=== PATIENT | male | born 1945 | race Caucasian/White ===

== ENCOUNTER 2019-10-21 13:52 | Emergency (ER) | payer MEDICARE, OTHER ==
[~2019-10-21] VITALS: Ht 195.6 cm; Wt 106.6 kg
--- OUTSIDE RECORDS SUMMARY | ~2019-10-21 | XMS | Encounter Summary ---
Demographics + + + | Address | [address] | | | [place] [address] | + + + | Home Phone | | + + + | Preferred Language | Unknown | + + + | Marital Status | | + + + | Bahai Affiliation | 1009 | + + + | Race | Unknown | + + + | Ethnic Group | Unknown | + + + Author + + + | Author | [facility] | | | and Jose Enriqueana | + + + | Organization | [facility] | | | and Jose Enriqueana | + + + | Address | Unknown | + + + | Phone | Unavailable | + + + Support + + + + + | Name | Relationship | Address | Phone | + + + + + | Sharlene Lagunas | ECON | [address] | | | [place] | | [address], [place] | | | | | [address] | | + + + + + | Rickey Bui | ECON | [address], [place] | | | | | [address] | | + + + + + Care Team Providers + +------+ + | Care Milk Pasteurizer Name | Role | Phone | + +------+ + | Tayo Robles DO | PCP | | + +------+ + Reason for Visit + + + | Reason | Comments | + + + | Device Check | No billed | + + + Encounter Details +--------+ + + + + | Date | Type | Department | Care Team | Description | +--------+ + + + + | 01/06/ | Procedure | [facility] | | Pacemaker - | | 2013 | visit | [facility] | | Medtronic - ADDRL1 | | | | [address] | | Adapta - Implanted | | | | [place] [address] [place], [place] | | 02/27/2012 DO NOT | | | | [address] | | RESOLVE (Primary | | | | [phone] | | Dx); Sinoatrial node | | | | | | dysfunction (HCC) | | | | | | DO NOT DELETE. | +--------+ + + + + Social History + +-------+ +--------+------+ | Tobacco Use | Types | Packs/Day | Years | Date | | | | | Used | | + +-------+ +--------+------+ | Never Smoker | | | | | + +-------+ +--------+------+ + +---+---+---+ | Smokeless Tobacco: | | | | | Never Used | | | | + +---+---+---+ + + | Comments: denies tobacco use | + + + + +---------+ + | Alcohol Use | Drinks/Week | oz/Week | Comments | + + +---------+ + | No | | | denies alcohol use | + + +---------+ + + + + | Sex Assigned at | Date Recorded | | | | + + + | Not on file | | + + + + + + + | Job Start Date | Occupation | Industry | + + + + | Not on file | Not on file | Not on file | + + + + + + + + | Travel History | Travel Start | Travel End | + + + + + + | No recent travel history available. | + + documented as of this encounter Plan of Treatment +--------+---------+ + + + | Date | Type | Specialty | Care Team | Description | +--------+---------+ + + + | 10/30/ | Office | Sleep Medicine | Rickey Zaragoza PA | | | 2020 | Visit | | [address] | | | | | | [place] | | | | | | [address] | | | | | | | | +--------+---------+ + + + documented as of this encounter Procedures + +--------+ + + + | Procedure Name | Priori | Date/Time | Associated Diagnosis | Comments | | | ty | | | | + +--------+ + + + | DEVICE INTERROGATION | Routin | 07/22/2015 | Pacemaker - | Results for this | | | e | 12:03 PM | Medtronic - ADDRL1 | procedure are in the | | | | PST | Adapta - Implanted | results section. | | | | | 02/27/2012 DO NOT | | | | | | RESOLVE Sinoatrial | | | | | | node dysfunction | | | | | | (HCC) DO NOT DELETE. | | + +--------+ + + + documented in this encounter Results Device Interrogation (07/22/2015 12:03 PM PST) + + + | Narrative | Performed At | + + + | Alex Jensen, | | | plant packer 07/22/2015 12:03 PATIENT NAME: Prabhjot Bui | | | : 1945: AGE: 68 y.o. Pacemaker Evaluation Report | | | January 06, 2014 Reason for evaluation: requestedIndication for | | | pacemaker: ICD-9-CM 1. Pacemaker - Medtronic - ADDRL1 Adapta - | | | Implanted 02/27/2012 DO NOT RESOLVE V45.01 Device Interrogation 2. | | | Sinoatrial node dysfunction ([facility]) DO NOT DELETE. 427.81 Device | | | Interrogation Patient was seated and device was interrogated. | | | Pacemaker parameters, battery status, percentages pacing and | | | significant arrhythmias were reviewed. Heart rate histograms were | | | assessed for adequate heart rate response and any alerts reviewed. | | | Appropriate lead impedance testing was performed. Pacing impedances | | | were reviewed for any significant changes. Sensing tests were | | | performed by decreasing LRL. Please see the attached [facility] report. | | | Dr. Joel Moise MD has supervised and interpreted this device | | | check. | | |Interrogation | | | | | | | | |Patient was seated and device was interrogated. Pacemaker | | |parameters, battery status, percentages pacing and significant | | |arrhythmias were reviewed. Heart rate histograms were assessed | | |for adequate heart rate response and any alerts reviewed. | | |Appropriate lead impedance testing was performed. Pacing | | |impedances were reviewed for any significant changes. Sensing | | |tests were performed by decreasing LRL. | | | | | |Please see the attached [facility] report. | | | | | |Dr. Joel Moise MD has supervised and interpreted this | | |device check. | | | | | | | | | | | + + + documented in this encounter Visit Diagnoses + + | Diagnosis | + + | Pacemaker - Medtronic - ADDRL1 Adapta - Implanted 02/27/2012 DO NOT RESOLVE - Primary | | Cardiac pacemaker in situ | + + | Sinoatrial node dysfunction (HCC) DO NOT DELETE. Sinoatrial node dysfunction | + + documented in this encounter"
--- OUTSIDE RECORDS SUMMARY | ~2019-10-21 | XMS | Encounter Summary ---
Demographics + + + | Address | [address] | | | [place] [address] | + + + | Home Phone | | + + + | Preferred Language | Unknown | + + + | Marital Status | | + + + | Anglican Affiliation | 1009 | + + + | Race | Unknown | + + + | Ethnic Group | Unknown | + + + Author + + + | Author | [facility] | | | and Jose Enriqueana | + + + | Organization | [facility] | | | and Jose Enriqueana | + + + | Address | Unknown | + + + | Phone | Unavailable | + + + Support + + + + + | Name | Relationship | Address | Phone | + + + + + | Sharlene Lagunas | ECON | [address] | | | [place] | | [address] [place] | | | | | [address] | | + + + + + | Rickey Bui | ECON | [address] [place], [place] | | | | | [address] | | + + + + + Care Team Providers + +------+ + | Care Council Member Name | Role | Phone | + +------+ + | Tayo Robles DO | PCP | | + +------+ + Reason for Visit + + + | Reason | Comments | + + + | Device Check | Due today. | | (Remote) | | + + + Encounter Details +--------+ + + + + | Date | Type | Department | Care Team | Description | +--------+ + + + + | 07/06/ | Telephone | [facility] | Avinash Billingsley, | Device Check | | 2017 | | [facility] | Senior Premium Auditor | (Remote) (Due | | | | HI[address] | | today.) | | | | [place] [address] [place] | | | | | | [address] | | | | | | [phone] | | | +--------+ + + + + Social [...] + + +---------+ + | No | 0 Standard drinks | 0.0 | denies alcohol use | | | or equivalent | | | + + +---------+ + + + [...] | Visit | | [address] | | | | | | [place] | | | | | | [phone] | | | | | | | | +--------+---------+ + + + documented as of this encounter Visit Diagnoses Not on filedocumented in this encounter"
--- OUTSIDE RECORDS SUMMARY | ~2019-10-21 | XMS | Encounter Summary ---
Demographics + + + | Address | [address] | | | [place] [address] | + + + | Home Phone | | + + + | Preferred Language | Unknown | + + + | Marital Status | | + + + | Restorationism Affiliation | 1009 | + + + | Race | Unknown | + + + | Ethnic Group | Unknown | + + + Author + + + | Author | [facility] | | | and Jose Enriqueana | + + + | Organization | [facility] | | | and Jose Enriqueana | + + + | Address | Unknown | + + + | Phone | Unavailable | + + + Support + + + + + | Name | Relationship | Address | Phone | + + + + + | Sharlene Lagunas | ECON | [address] | | | [place] | | [address], [place] | | | | | [address] | | + + + + + | Rickey Bui | ECON | [address] [place], [place] | | | | | [address] | | + + + + + Care Team Providers + +------+ + | Care Courtesy Driver Name | Role | Phone | + +------+ + | Tayo Robles DO | PCP | | + +------+ + Reason for Visit + + + | Reason | Comments | + + + | Device Check | Billed | | (Remote) | | + + + Encounter Details +--------+ + + + + | Date | Type | Department | Care Team | Description | +--------+ + + + + | 08/19/ | Implant | [facility] | Beata Dorado, | Sinoatrial node | | 2016 | Monitor | [facility] | RN | dysfunction (HCC) | | | | HI[address] | | (Primary Dx); | | | | [address] | | Cardiac pacemaker in | | | | [address] | | situ | | | | [phone] | | | +--------+ + + + [...] | | | | | | [place] | | | | | | [address] | | | | | | | | +--------+---------+ + + + documented as of this encounter Procedures + +--------+ + + + | Procedure Name | Priori | Date/Time | Associated Diagnosis | Comments | | | ty | | | | + +--------+ + + + | DEVICE INTERROGATION | Routin | 08/20/2015 | Sinoatrial node | Results for this | | | e | 9:12 PM | dysfunction (HCC) | procedure are in the | | | | PDT | Cardiac pacemaker in | results section. | | | | | situ | | + +--------+ + + + documented in this encounter Results Device Interrogation (08/20/2015 9:12 PM PDT) + + + | Narrative | Performed At | + + + | [facility] | | ANASTASIYA Dorado 08/20/2015 21:12 PATIENT NAME: Prabhjot Lee | | | Breejuvenal : 1945: AGE: 69 y.o. Remote | | | Pacemaker Evaluation Report July 09, 2015 Reason for evaluation: | | | RoutineIndication for pacemaker: ICD-10-CM ICD-9-CM 1. Sinoatrial | | | node dysfunction (HCC) I49.5 427.81 Device Interrogation 2. Cardiac | | | pacemaker in situ Z95.0 V45.01 Device Interrogation Remotely | | | captured device data was reviewed for pacemaker parameters, battery | | | status, percentage of pacing and significant arrhythmias. Heart rate | | | histograms were evaluated for adequate heart rate response and any | | | alerts reviewed. Pacing lead impedances were reviewed for any | | | significant changes. Final pacing outputs and programming parameters | | | were reviewed. Settings Mode: VVIR, 70-130(130)Ventricular Output: | | | 2.0V @ 0.4ms Data Presenting rhythm is atrial flutter with HEEL SEAT FLAP STAPLER ~88 bpm. | | | HEEL SEAT FLAP STAPLER 70.2%. Mostly HEEL SEAT FLAP STAPLER when in AT/AF. Heart rate histogram appears | | | appropriate. Battery status: satisfactory. Voltage: 2.79 V. Estimated | | | remaining longevity: 11 years. Lead impedance appears within normal | | | limits.Events noted since 06/03/15: 4 VHR, longest 1:44 minutes. | | | Atrial EGMs only available and show VS falling on every other | | | flutter wave, possibly RVR.Device function appears appropriate.Remote | | | follow-up in 3 months.Supervising and interpreting physician for this | | | remote,Dr. Joel Moise MD | | |pacing outputs and programming parameters were reviewed. | | | | | |Settings | | | | | |Mode: VVIR, 70-130(130) | | |Ventricular Output: 2.0V @ 0.4ms | | | | | |Data | | | | | |Presenting rhythm is atrial flutter with HEEL SEAT FLAP STAPLER ~88 bpm. HEEL SEAT FLAP STAPLER 70.2%. | | |Mostly HEEL SEAT FLAP STAPLER when in AT/AF. Heart rate histogram appears | | |appropriate. | | |Battery status: satisfactory. Voltage: 2.79 V. Estimated | | |remaining longevity: 11 years. Lead impedance appears within | | |normal limits. | | |Events noted since 06/03/15: | | | 4 VHR, longest 1:44 minutes. Atrial EGMs only available and | | |show VS falling on every other flutter wave, possibly RVR. | | |Device function appears appropriate. | | |Remote follow-up in 3 months. | | |Supervising and interpreting physician for this remote, | | |Dr. Joel Moise MD | | | | | | | | | | | + + + + +---------+ + + | Performing | Address | City/State/Zipcode | Phone Number | | Organization | | | | + +---------+ + + | [facility] | | | | + +---------+ + + documented in this encounter Visit Diagnoses + + | Diagnosis | + + | Sinoatrial node dysfunction (HCC) - Primary Sinoatrial node dysfunction | + + | Cardiac pacemaker in situ | + + documented in this encounter"
--- OUTSIDE RECORDS SUMMARY | ~2019-10-21 | XMS | Encounter Summary ---
Demographics + + + | Address | [address] | | | [place] [address] | + + + | Home Phone | | + + + | Preferred Language | Unknown | + + + | Marital Status | | + + + | Anabaptist Affiliation | 1009 | + + + | Race | Unknown | + + + | Ethnic Group | Unknown | + + + Author + + + | Author | [facility] | | | and Jose Enriqueana | + + + | Organization | [facility] | | | and Jose Enriqueana | + + + | Address | Unknown | + + + | Phone | Unavailable | + + + Support + + + + + | Name | Relationship | Address | Phone | + + + + + | Sharlene Lagunas | ECON | [address] | | | [place] | | [address], [place] | | | | | [address] | | + + + + + | Rickey Bui | ECON | [address], [place] | | | | | [address] | | + + + + + Care Team Providers + +------+ + | Care Bacteriology Teacher Name | Role | Phone | + +------+ + | Luna Larson | PCP | | | PA | | | + +------+ + Reason for [...] 08/19/ | Implant | [facility] | Ila Vasquez, | Sinoatrial node | | 2019 | Monitor | [facility] | RN | dysfunction (HCC) | | | | HI[address] | | (Primary Dx); | | | | [address] [place], [place] | | Cardiac pacemaker in | | | | [address] | | situ | | | | [phone] | | | +--------+ + + + [...] [place] | | | | | | [place] | | | | | | [address] | | | | | | | | +--------+---------+ + + + documented as of this encounter Procedures + +--------+ + + + | Procedure Name | Priori | Date/Time | Associated Diagnosis | Comments | | | ty | | | | + +--------+ + + + | DEVICE | Routin | 08/19/2018 | Sinoatrial node | Results for this | | INTERROGATION- | e | 11:59 PM | dysfunction (HCC) | procedure are in the | | REMOTE | | PDT | Cardiac pacemaker in | results section. | | | | | situ | | + +--------+ + + + documented in this encounter Results Device Interrogation - Remote (08/19/2018 11:59 PM PDT) + + + | Narrative | Performed At | + + + | [facility] | [facility] | | ANASTASIYA Vasquez 08/19/2018 13:35 PATIENT NAME: Prabhjot Lee | | | [place] : 1945: AGE: 72 y.o. Remote | | | Pacemaker Evaluation Report July 05, 2018 Reason for evaluation: | | | RoutineIndication for pacemaker: ICD-10-CM ICD-9-CM 1. Sinoatrial | | | node dysfunction (HCC) I49.5 427.81 Device Interrogation - Remote 2. | | | Cardiac pacemaker in situ Z95.0 V45.01 Device Interrogation - Remote | | | Remotely captured device data was reviewed for pacemaker parameters, | | | battery status, percentage of pacing and significant arrhythmias. | | | Heart rate histograms were evaluated for adequate heart rate response | | | and any alerts reviewed. Pacing lead impedances were reviewed for any | | | significant changes. Final pacing outputs and programming parameters | | | were reviewed. Settings Mode: VVIR, 70 (130)Ventricular Output: 2.0V @ | | | 0.4ms (adaptive) Data Presenting rhythm is atrial | | | fibrillation/flutter with irregular WAREHOUSE GUARD/VS, ~96 bpm. WAREHOUSE GUARD 54.8%. | | | Heart rate histogram appears somewhat broad with ~25% >110 bpm | | | (mostly sensed). Battery status: satisfactory. Voltage: 2.79 V. | | | Estimated remaining longevity: 7.5 years. Lead impedance appears | | | within normal limits.Events noted since 08/11/17: 72 VHR (70 new since | | | 04/05/18), longest 1:18 minutes, logged events are 4 seconds to 1:18 | | | minutes, 180-189 bpm, last on 06/07/18. EGMs are atrial only showing | | | atrial flutter with intermittent fast VS, possibly periods of 1:1 | | | conduction although no ventricular EGM is available for review.Device | | | function appears appropriate. The patient has broad heart rate | | | histograms and has 70 new high rate episodes, the most recent on | | | 06/07/18. A message was left for him on 05/23/18 to increase his beta | | | niko dose from 50 mg bid to 75 mg bid and he has had no new VHR | | | since 06/07/18.Remote follow-up in 3 months. Supervising and | | | interpreting physician for this remote,Joel Moise MD | | | | | |Data | | | | | |Presenting rhythm is atrial fibrillation/flutter with irregular | | |WAREHOUSE GUARD/VS, ~96 bpm. WAREHOUSE GUARD 54.8%. Heart rate histogram appears somewhat | | |broad with ~25% >110 bpm (mostly sensed). | | |Battery status: satisfactory. Voltage: 2.79 V. Estimated | | |remaining longevity: 7.5 years. Lead impedance appears within | | |normal limits. | | |Events noted since 08/11/17: | | | 72 VHR (70 new since 04/05/18), longest 1:18 minutes, logged | | |events are 4 seconds to 1:18 minutes, 180-189 bpm, last on | | |06/07/18. EGMs are atrial only showing atrial flutter with | | |intermittent fast VS, possibly periods of 1:1 conduction although | | |no ventricular EGM is available for review. | | |Device function appears appropriate. The patient has broad heart | | |rate histograms and has 70 new high rate episodes, the most | | |recent on 06/07/18. A message was left for him on 05/23/18 to | | |increase his beta niko dose from 50 mg bid to 75 mg bid and he | | |has had no new VHR since 06/07/18. | | |Remote follow-up in 3 months. | | | | | |Supervising and interpreting physician for this remote, | | |Joel Moise MD | | + + + + +---------+ [...]
--- OUTSIDE RECORDS SUMMARY | ~2019-10-21 | XMS | Encounter Summary ---
Demographics + + + | Address | [address] | | | [place] [address] | + + + | Home Phone | | + + + | Preferred Language | Unknown | + + + | Marital Status | | + + + | Roman Catholic Affiliation | 1009 | + + + | Race | Unknown | + + + | Ethnic Group | Unknown | + + + Author + + + | Author | [facility] | | | and Jose Enriqueana | + + + | Organization | [facility] | | | and Jose Enriqueana | + + + | Address | Unknown | + + + | Phone | Unavailable | + + + Support + + + + + | Name | Relationship | Address | Phone | + + + + + | Sharlene Lagunas | ECON | [address] | | | [place] | | [address], [place] | | | | | [address] | | + + + + + | Rickey Bui | ECON | [address] [place], [place] | | | | | [address] | | + + + + + Care Team Providers + +------+ + | Care Buckle Gluer Name | Role | Phone | + +------+ + | Tayo Robles DO | PCP | | + +------+ + Reason for Referral Diagnostic/Screening (Routine) +--------+--------+ + + + + | Status | Reason | Specialty | Diagnoses / | Referred By | Referred To | | | | | Procedures | Contact | Contact | +--------+--------+ + + + + | Closed | | Radiology | Diagnoses | [place], | [facility] | | | | | Edema, | Mary M, | [address] | | | | | unspecified | PA-C [address] | [place], | | | | | type | AVE | [place] | | | | | Fatigue, | [address] | [address] | | | | | unspecified | [place] | Phone: | | | | | type S/P | [phone] | [phone] | | | | | AVR | Phone: | Fax: | | | | | Procedures | [phone] | [phone] | | | | | ECHO | Fax: | | | | | | Complete | [phone] | | +--------+--------+ + + + + Reason for Visit + + + | Reason | Comments | + + + | Follow-up | | + + + | Atrial Fibrillation | | + + + | Device Check | | | (In-office) | | + + + | Edema | | + + + Encounter Details +--------+---------+ + + + | Date | Type | Department | Care Team | Description | +--------+---------+ + + + | 08/11/ | Office | JENNIE SIDDIQUI | Mary Wilkes, | Edema, unspecified | | 2018 | Visit | [facility] | PA-C [address] | type (Primary Dx); | | | | HI[address] | [address] | Atrial fibrillation, | | | | [place] [address] [place] | [place] [address] | unspecified type | | | | [address] | [phone] | ([facility]); Fatigue, | | | | [phone] | | unspecified type; | | | | | | S/P AVR; Pacemaker - | | | | | | Medtronic - [id number] | | | | | | Adapta - Implanted | | | | | | 02/27/2012 DO NOT | | | | | | RESOLVE; Sinoatrial | | | | | | node dysfunction | | | | | | ([facility]) DO NOT | | | | | | DELETE.; | | | | | | Hypertension; 2. | | | | | | Bicuspid aortic | | | | | | valve with dilated | | | | | | aortic root - mild | | | | | | aortic insufficiency | | | | | | - Echocardiogram | | | | | | 09/13/04 reveals peak | | | | | | gradient of 11, | | | | | | calculated valve | | | | | | area of 2.3 cm2, and | | | | | | mildly dilated | | | | | | ascending aort | +--------+---------+ + + + Social History + +-------+ [...] + + documented as of this encounter Last Filed Vital Signs + + + + + | Vital Sign | Reading | Time Taken | Comments | + + + + + | Blood Pressure | 114/74 | 08/11/2017 3:31 PM | Lt | | | | PDT | | + + + + + | Pulse | 78 | 08/11/2017 3:31 PM | | | | | PDT | | + + + + + | Temperature | - | - | | + + + + + | Respiratory Rate | - | - | | + + + + + | Oxygen Saturation | - | - | | + + + + + | Inhaled Oxygen | - | - | | | Concentration | | | | + + + + + | Weight | 108.9 kg (240 lb) | 08/11/2017 3:31 PM | | | | | PDT | | + + + + + | Height | 193 cm (6' 4") | 08/11/2017 3:31 PM | | | | | PDT | | + + + + + | Body Mass Index | 29.21 | 08/11/2017 3:31 PM | | | | | PDT | | + + + + + documented in this encounter Patient Instructions Patient Instructions Aspen Sanford LPN - 08/11/2017 3:40 PM PDTTake Furosemide 20 mg on Monday and with Potassium 20 mEq on Monday and Arrange echocardiogram in [place] Follow up with Dr. Kunz in 6 months.Electronically signed by Aspen Sanford LPN at 07/21 4:57 PM PDT documented in this encounter Progress Notes Mary Wilkes PA-C - 08/11/2017 3:40 PM PDT PATIENT NAME: Prabhjot Bui : 1945: AGE: 71 y.o. PRIMARY CARE: Tayo Robles DO DATE OF SERVICE: 08/11/2017 CHIEF COMPLAINT: Follow-up AVR Paroxysmal atrial fibrillation Hypertension Edema Date of Service: 08/11/2017 Patient's history and clinical findings were reviewed with Dr. Kunz who is in agreement with this treatment plan and saw the patient during the office visit. Outline of Cardiac Problems that were considered on 08/11/17 to make treatment decisions 1. Sinoatrial node dysfunction 1. Medtronic pacemaker in place, implanted 02/27/12 2. Paroxysmal atrial fibrillation 1. Onset 1993 2. Cardioversions 06/19/00, 11/24/00, 07/25/01, 10/18/01, 12/26/02, 12/02/04, 03/07/13 3. Previous ablation 2002, 2008, 2013 3. Bicuspid aortic valve 1. S/P AVR 27 mm freestyle porcine aortic root and 24 mm Hemashield woven Dacron Graft 2. Echo 01/20/16 LVEF 55%, moderate to severe atrial enlargement, mild MR, moderate TR 29-34 mmHg 4. Hypertension CURRENT ASSESSMENT Pacemaker - Medtronic - [id number] Adapta - Implanted 02/27/2012 DO NOT RESOLVE Device was interrogated today Battery life is 9 years Ventricular paced 55.9% 7 VHR with the longest lasting 2 minutes and 18 seconds with RVR, on 03/10/17 No further events since 03/12/17 Heart rate distribution was adequate and no changes were made Sinoatrial node dysfunction DO NOT DELETE. V pacing 55.9 % Atrial fibrillation/atrial flutter Overall rate controlled On warfarin for anticoagulation therapy Hypertension Well-controlled with current medical therapy 2. Bicuspid aortic valve with dilated aortic root - mild aortic insufficiency - Echocardio gram 09/13/04 reveals peak gradient of 11, calculated valve area of 2.3 cm2, and mildly dilat ed ascending aort Valve replacement functioning well on echo 12/2015 Patient has been having more problems with lower extremity edema, losing his stamina quickl y. I reviewed his history and clinical signs with Dr. Kunz and the plan is to increase his Lasix to Monday and Add potassium 20 mEq on Monday and Repeat echocardiogram During this office visit, I reviewed the last progress note, most recent labs and last diag nostic studies. PLAN: 1. Echocardiogram 2. Take Lasix 20 mg on Monday and 3. Add potassium 20 once on Monday and 4. Follow-up with Dr. Kunz in 6 months Of course patient is to present to the ER if symptoms worsen or change in any way. HISTORY OF PRESENT ILLNESS 71 y.o. year old male with history as dictated above. He was last seen by Dr. Kunz on 09/05/16. He is having complaints of increasing exertional fatigue, decreased energy levels and lower extremity edema. He denies any exertional or resting chest discomfort, shortness of breath, orthopnea or paroxysmal nocturnal dyspnea. He is able to do his normal activitie s without limitation. FOLLOWUP Dr. Kunz MEDICATION ADJUSTMENTS New Prescriptions POTASSIUM CHLORIDE (K-DUR) 20 MEQ ER TABLET 1 tablet on Monday and with Furose mide Medications Discontinued During This Encounter Medication Reason thyroid (ARMOUR THYROID) 60 MG tablet Patient Not Taking ATTENDANCE SECRETARY THYROID 30 MG tablet Patient Not Taking Apoaequorin (PREVAGEN PO) Patient Not Taking magnesium sulfate 500 mg/mL injection Patient Not Taking non-formulary medication Patient Not Taking non-formulary medication Patient Not Taking furosemide (LASIX) 20 mg tablet Reorder CURRENT MEDICATIONS Outpatient Encounter Prescriptions as of 08/11/2017 Medication Sig Dispense Refill anastrozole (ARIMIDEX) 1 mg tablet Take 0.6 tablets by mouth Once a week. MONDAYS [DISCONTINUED] Apoaequorin (PREVAGEN PO) Take by mouth Daily. ARMOUR THYROID 15 MG tablet Take 1 tablet by mouth every morning. 75 mg in the AM and 3 0 mg in the PM 3 Cholecalciferol (CVS VITAMIN D) 2000 UNITS CAPS Take 5,000 Units by mouth Daily. cloNIDine (CATAPRES) 0.2 MG tablet TAKE 1 TABLET TWICE A DAY *ACTAVIS* 180 tablet 0 Coenzyme Q10 (CO Q-10) 100 MG CAPS Take 1 capsule by mouth Daily. Also has O-Svuynp-Smm teine 250 mg & Pyrroloquinoline PQQ 10 mg DHEA 25 MG CAPS Take 25 mg by mouth Daily. digoxin (LANOXIN) 250 mcg tablet TAKE 1 TABLET DAILY 90 tablet 0 fish oil 1,000 mg capsule Take 1,000 mg by mouth Daily. [DISCONTINUED] furosemide (LASIX) 20 mg tablet Take 1 tablet by mouth Daily. 30 tablet 11 furosemide (LASIX) 20 mg tablet 1 tablet daily on Monday and with Potassium Garlic 1000 MG CAPS Take 1,000 mg by mouth Daily. L-Methylfolate 15 MG TABS Take 15 mg by mouth Daily. MAGNESIUM PO Take 133 mg by mouth. [DISCONTINUED] magnesium sulfate 500 mg/mL injection Twice a week. Monday AND MONDAY As directed metoprolol succinate (TOPROL-XL) 50 mg 24 hr tablet TAKE 1 AND 1/2 TABLETS DAILY 90 tablet 3 non-formulary medication Nerium po [DISCONTINUED] non-formulary medication prevergan [DISCONTINUED] non-formulary medication prevergen [DISCONTINUED] ATTENDANCE SECRETARY THYROID 30 MG tablet Take 1 tablet by mouth nightly. 4 potassium chloride (K-DUR) 20 mEq ER tablet 1 tablet on Monday and with Furose mide 30 tablet 2 Potassium Gluconate 595 MG CAPS Take 1 capsule by mouth Daily. PROAIR HFA 108 (90 Base) MCG/ACT inhaler Inhale 2 puffs into the lungs as needed. 1 SYNTHROID 50 MCG tablet Take 1 tablet by mouth Daily. tamsulosin (FLOMAX) 0.4 mg CAPS Take 0.4 mg by mouth daily (after breakfast). TAURINE PO Take 1,500 mg by mouth 2 times daily. Six caps daily; testosterone cypionate (DEPO-TESTOSTERONE) 100 mg/mL injection Inject 100 mg into the m uscle every 14 days. [DISCONTINUED] thyroid (ARMOUR THYROID) 60 MG tablet Take 60 mg by mouth. With 15 mg ta b UNABLE TO FIND Daily. Med Name: Spirolina warfarin (COUMADIN) 5 mg tablet Take by mouth See Admin Instructions. As directed by Dylan TA No facility-administered encounter medications on file as of 08/11/2017. Please note [facility] has a flaw in which medication corrections are listed as if they were disc ontinued at the time of the visit. I did not "discontinue" any the above medications unless noted in my assessment and plan; rather the patient was either not on these medications upon arrival today or I made refills or dose adjustments as otherwise noted. ALLERGIES Allergies Allergen Reactions Flecainide Other (See Comments) AFTER 1ST ABLATION, HAD LEG SWELLING, INCREASED HEART RATE Amoxicillin Rash MEDICAL, SURGICAL, AND PERSONAL HISTORY Past Medical History: Past Medical History: Diagnosis Date Aortic insufficiency and aortic stenosis Aortic root dilation (HCC) Dilated aortic root - stable on echocardiogram 06/24/05 - 4.5 cm. - 4.8 cm previously: Aorti c root 4.5 x 4.7 cm echocardiogram 10/17/06. Asthma RARELY USES ALBUTEROL INHALER Atrial fibrillation (HCC) DR AUGUSTO KUNZ Colon polyp 1989 Diverticular disease Elevated bilirubin History of biopsy Lump on breast was biopsied in 04/2009 and was benign. History of echocardiogram Bicuspid aortic valve - peak gradient 11, mean gradient 6 - echocardiogram 10/17/06. Hypertension Labile hypertension. Blood pressure 194/120 approximately 06/10/05. Leg swelling Intermittent right leg swelling . wears support hose Pacemaker MEDTRONIC Paroxysmal atrial fibrillation (HCC) Last cardioversion 12/26/02. Pulmonary vein isolation carried out at the [facility] on 09/01/01. Phlebitis Phlebitis - right leg with superficial enlargement of superficial veins over the right thi gh, improved at office visit 01/17/06. Sleep apnea CPAP- WILL BRING SOB (shortness of breath) D/T A FIB W/ACTIVITY Thyroid disease HYPOTHYROID TIA (transient ischemic attack) LAST 2009 OR 2010 HAS HAD "A FEW TIA"- Varicose veins Past Surgical History: Past Surgical History: Procedure Laterality Date ABLATION OF DYSRHYTHMIC FOCUS 04/30/2014 A-FIB ABLATION W/IVETTE AND SHAYNA W/DR SARAVIA; Laterality: N/A; Surgeon: Rickey Galvan MD ; Location: [facility] ELECTROPHYSIOLOGY AORTIC ROOT REPLACEMENT AND REIMPLANTATION OF CORONARY ARTERIES 05/28/08 Dr. Kelsey ASCENDING AORTA REPLACEMENT 05/28/08 Dr. Kelsey ATRIAL ABLATION SURGERY 2002 ,2008 CARDIAC PACEMAKER PLACEMENT 02/27/12 MEDTRONIC CARDIOVERSION 06/19/00,11/24/00,07/25/01,10/18/01,12/26/02,12/02/04 CARDIOVERSION 03/07/13 CHOLECYSTECTOMY HIP JOINT REPLACEMENT Left 05/17/15 INGUINAL HERNIA REPAIR X2 SHOULDER SURGERY 05/28/13 right WRIST SURGERY left Family History: His family history includes Atrial Fibrillation in his mother; Colon cance r in his brother; Hypertension in his mother and sister; Stroke (age of onset: 62) in his si ster. Social History: He reports that he has never smoked. He has never used smokeless tobacco. He reports that he does not drink alcohol or use drugs. ROS 12 point ROS was completed and is negative except for: Fatigue, hearing loss, ringing in th e ears, ankle swelling, shortness of breath, and dizziness PHYSICAL EXAM BP 114/74 Comment: Lt | Pulse 78 | Ht 1.93 m (6' 4") | Wt 108.9 kg (240 lb) | BMI 29.21 kg/m Body mass index is 29.21 kg/m. CONSTITUTIONAL: Pleasant appearing gentleman in no acute distress. He is accompanied by hi s today. HEENT: conjunctiva and lids are normal in appearance EOMs are intact. NECK: Normal range of motion. Neck supple. JVP is normal. BLOOD PRESSURES: equal in both upper extremities. CAROTIDS: Carotid upstrokes are normal and without bruits. PULMONARY/CHEST:Respiratory effort normal and breath sounds clear to auscultation. CARDIAC: PMI is nondisplaced. Cardiac exam reveals regular rate and rhythm with normal S1- S2. 2/6 systolic apical murmur with no rubs, or gallops. ABDOMINAL: Soft. Non tender, non distended. Bowel sounds are normal. no bruits auscultated . Abdominal aorta is not palpably enlarged. LOWER EXTREMETIES: Intact distal pulses and 2+ bilaterally, 2+ lower extremity edema bilate rally. No venous insufficiency. MUSCULOSKELETAL: Back is negative for kyphosis/scoliosis. Normal gait. Muscles strength is equal bilaterally. EXTREMITIES; digits and nails negative for clubbing or cyanosis inspection of extremities r eveal no inflammation or signs of ischemia. SKIN: Skin is warm, dry and free of rashes. NEUROLOGICAL: alert and oriented to person, place, and time, normal affect. LABS Lab Results Component Value Date WBC 8.6 05/01/2014 HGB 14.0 05/01/2014 HCT 42.6 05/01/2014 PLT 142 (L) 05/01/2014 CHOL 124 10/15/2010 TRIG 49 10/15/2010 HDL 44 10/15/2010 ALT 26 03/07/2013 AST 27 03/07/2013 NA 139 04/30/2014 K 4.3 04/30/2014 CL 106 04/30/2014 CREA 0.89 04/30/2014 BUN 13 04/30/2014 CO2 29 (H) 04/30/2014 TSH 0.07 (L) 03/07/2013 PSA 1.02 08/23/2012 INR 2.2 (H) 05/01/2014 Objective testing: Twelve-lead EKG obtained today shows patient to be ventricular paced with a heart rate is 7 2 bpm. Thank you for allowing me to participate in the care of this patient. If you have any questions, please do not hesitate to contact me. Signed by: Mary Wilkes PA-C, 08/11/2017, 17:10 Patient Care Team: Tayo Robles DO as PCP - General (Family Medicine - Sports Medicine) KENNETH Givens (Physician Tunnel Kiln Operator) Augusto Kunz MD as Physician (Cardiology) Portions of this report were transcribed using voice recognition software. Every effort wa s made to ensure accuracy; however, inadvertent computerized turf farm worker errors may be pre sent. documented in this encounter Plan of Treatment +--------+---------+ + + + | Date | Type | Specialty | Care Team | Description | +--------+---------+ + + + | 10/30/ | Office | Sleep Medicine | Rickey Zaragoza PA | | | 2020 | Visit | | [address] | | | | | | [place] | | | | | | [id number] | | | | | | | | +--------+---------+ + + + + +------+--------+ + + | Name | Type | Priori | Associated Diagnoses | Order Schedule | | | | ty | | | + +------+--------+ + + | ECG 12 lead | ECG | Routin | Atrial | Ordered: 08/11/2017 | | | | e | fibrillation, | | | | | | unspecified type | | | | | | (HCC) | | + +------+--------+ + + documented as of this encounter Procedures + +--------+ + + + | Procedure Name | Priori | Date/Time | Associated Diagnosis | Comments | | | ty | | | | + +--------+ + + + | ECG - EXTERNAL SCAN | | 08/11/2017 | | Results for this | | | | 12:00 AM | | procedure are in the | | | | PDT | | results section. | + +--------+ + + + documented in this encounter Results ECHO Complete (09/11/2017 4:00 PM PDT) + +-------+ + + + | Component | Value | Ref Range | Performed | Pathologist | | | | | At | Signature | + +-------+ + + + | LVEF-TTE | 68 | | [facility] | | | TRANSTHORAC | | | | | | IC ECHO | | | | | + +-------+ + + + + + | Specimen | + + | | + + + + --+ | Narrative | Performed At | + + --+ | Transthoracic | [facility] | | Echocardiography Report (TTE) Demographics Patient Name | | | LEONEL LAZARO Room Number JAZMIN | | | Patient [id number] Date of Study | | | 09/11/2017 Number Visit Number [id number] Accession | | | [id number] Referring Physician DAYANA Crawford Number | | | Date of 1945 Sash Maker GRAZYNA | | | GISELL WAGNER Age 71 year(s) Interpreting | | | GODWIN WAGNER, | | | Process Equipment Operator Gender Male | | | 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 Procedure dateDate: 09/11/2017Start: 02:43 PM Technical | | | Quality: Good visualizationStudy Location: Echo LabIndications: Status | | | post aortic valve replacement- Z95.2 (ICD-10-CM) - | | | V43.3(ICD-9-CM).Patient Status: RoutineHeight: 76 inchesWeight: 242.01 | | | poundsBSA: 2.4 m^2BMI: 29.46 kg/m^2Rhythm: Atrial fibrillation | | | ConclusionsSummary1. Mild biatrial dilatation.2. Normal left | | | ventricular size, wall thickness and motion. Preserved leftventricular | | | systolic function. LVEF is 65-70%.3. Mildly thickened mitral valve | | | with a mild mitral valve regurgitation.4. Mild mitral annular | | | calcification.5. Normally functioning bioprosthetic aortic valve | | | replacement. Valve seatedsolidly. No significant aortic valve | | | insufficiency.6. Kgdd-qj-mwealofm tricuspid valve regurgitation.7. | | | Borderline pulmonary hypertension with a peak systolic pressure of | | | 35-40mmHg.8. Dilated IVC with a normal collapse suggesting mild fluid | | | retention. | | | Signature | | | | | | AM | | | -------- FindingsMitral ValveThickening and calcification of the | | | mitral valve leaflets.Mild mitral annular calcification is | | | present.Aortic ValveEvidence of bioprosthetic aortic valve | | | replacement.Tricuspid EkwfqMvse-bl-jquropqc tricuspid regurgitation | | | suggestive of a mildly elevatedright systolic pressure of 35-40 | | | mmHg.Pulmonic ValveNormal pulmonic valve structure and function. | | | Normal pulmonary valve andRVOT flow by color and Doppler flow | | | imaging.Left AtriumThe left atrium is mildly dilated.Left | | | VentricleLeft ventricle is normal in size and function. Ejection | | | fraction isestimated at 65-70 %.Right AtriumMildly enlarged right | | | atrial size.Right VentricleNormal right ventricular size.Right | | | ventricle global systolic function is normal.TAPSE =1.5 cm.Pericardial | | | EffusionNo evidence of pericardial effusion.Pleural EffusionNo | | | evidence of pleural effusion.MiscellaneousDilated IVC with normal | | | collapse.Aortic root dimension within normal limits. Valves Mitral | | | Valve Tissue Doppler Septal e' Velocity: 0.19 m/s Aortic Valve | | | Peak Velocity: 1.4 m/s Peak Gradient: 7.84 mmHg Tricuspid Valve TR | | | Velocity: 2.4 m/s Structures Left Atrium LA A/P Dimension: 5.3 cm | | | LA Volume: 92 ml LA Vol/BSA Index: 38 | | | mL/m^2 Left Ventricle Diastolic Dimension: 5.9 cm Septum Diastolic: | | | 0.9 cm PW Diastolic: 0.9 cm EF Jsrocyufo80% Miscellaneous Aorta | | | Aortic Root: 3.3 cm | | | | | |Signature | | | | | | Electronically signed by GODWIN WAGNER MD(Interpreting physician) on | | | 09/12/2017 06:53 AM | | | | | | | | |Findings | | |Mitral Valve | | |Thickening and calcification of the mitral valve leaflets. | | |Mild mitral annular calcification is present. | | |Aortic Valve | | |Evidence of bioprosthetic aortic valve replacement. | | |Tricuspid Valve | | |Zrvg-vp-sgqevscy tricuspid regurgitation suggestive of a mildly elevated | | |right systolic pressure of 35-40 mmHg. | | |Pulmonic Valve | | |Normal pulmonic valve structure and function. Normal pulmonary valve and | | |RVOT flow by color and Doppler flow imaging. | | |Left Atrium | | |The left atrium is mildly dilated. | | |Left Ventricle | | |Left ventricle is normal in size and function. Ejection fraction is | | |estimated at 65-70 %. | | |Right Atrium | | |Mildly enlarged right atrial size. | | |Right Ventricle | | |Normal right ventricular size. | | |Right ventricle global systolic function is normal. | | |TAPSE =1.5 cm. | | |Pericardial Effusion | | |No evidence of pericardial effusion. | | |Pleural Effusion | | |No evidence of pleural effusion. | | |Miscellaneous | | |Dilated IVC with normal collapse. | | |Aortic root dimension within normal limits. | | | | | |Valves | | | | | | Mitral Valve | | | | | | Tissue Doppler | | | | | | Septal e' Velocity: 0.19 m/s | | | | | | Aortic Valve | | | | | | Peak Velocity: 1.4 m/s | | | Peak Gradient: 7.84 mmHg | | | | | | Tricuspid Valve | | | | | | TR Velocity: 2.4 m/s | | | | | |Structures | | | | | | Left Atrium | | | | | | LA A/P Dimension: 5.3 cm LA Volume: 92 ml | | | LA Vol/BSA Index: 38 mL/m^2 | | | | | | Left Ventricle | | | | | | Diastolic Dimension: 5.9 cm | | | Septum Diastolic: 0.9 cm | | | PW Diastolic: 0.9 cm | | | EF Hpkonjjgq18% | | | | | | Miscellaneous | | | | | | Aorta | | | | | | Aortic Root: 3.3 cm | | | | | + + --+ + + | Procedure Note | + + | Zia George Results In - 09/12/2017 6:53 AM PDT Transthoracic Echocardiography Report | | (TTE) Demographics Patient Name LEONEL LAZARO Room Number JAZMIN | | Patient [id number] Date of Study 09/11/2017 Number Visit Number | | [id number] Referring Physician DAYANA Crawford | | Number Date of 1945 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 Mild biatrial dilatation.2. Normal left ventricular | | size, wall thickness and motion. Preserved leftventricular systolic function. LVEF is | | 65-70%.3. Mildly thickened mitral valve with a mild mitral valve regurgitation.4. Mild | | mitral annular calcification.5. Normally functioning bioprosthetic aortic valve | | replacement. Valve seatedsolidly. No significant aortic valve insufficiency.6. | | Vxuq-pm-cffavori tricuspid valve regurgitation.7. Borderline pulmonary hypertension with | | a peak systolic pressure of 35-40mmHg.8. Dilated IVC with a normal collapse suggesting | | mild fluid | | retention.Signature | | ------- Electronically signed by GODWIN WAGNER MD(Interpreting physician) on | | 09/12/2017 06:53 | | AM FindingsMi | | tral ValveThickening and calcification of the mitral valve leaflets.Mild mitral annular | | calcification is present.Aortic ValveEvidence of bioprosthetic aortic valve | | replacement.Tricuspid EhthrStyo-ww-jzrbgynm tricuspid regurgitation suggestive of a | | mildly elevatedright systolic pressure of 35-40 mmHg.Pulmonic ValveNormal pulmonic valve | | structure and function. Normal pulmonary valve andRVOT flow by color and Doppler flow | | imaging.Left AtriumThe left atrium is mildly dilated.Left VentricleLeft ventricle is | | normal in size and function. Ejection fraction isestimated at 65-70 %.Right AtriumMildly | | enlarged right atrial size.Right VentricleNormal right ventricular size.Right ventricle | | global systolic function is normal.TAPSE =1.5 cm.Pericardial EffusionNo evidence of | | pericardial effusion.Pleural EffusionNo evidence of pleural | | effusion.MiscellaneousDilated IVC with normal collapse.Aortic root dimension within | | normal limits.Valves Mitral Valve Tissue Doppler Septal e' Velocity: 0.19 m/s Aortic | | Valve Peak Velocity: 1.4 m/s Peak Gradient: 7.84 mmHg Tricuspid Valve TR Velocity: 2.4 | | m/sStructures Left Atrium LA A/P Dimension: 5.3 cm LA Volume: 92 ml | | LA Vol/BSA Index: 38 mL/m^2 Left Ventricle Diastolic Dimension: 5.9 cm Septum | | Diastolic: 0.9 cm PW Diastolic: 0.9 cm EF Ceatkcgrd72% Miscellaneous Aorta Aortic Root: | | 3.3 cm | |Summary | |1. Mild biatrial dilatation. | |2. Normal left ventricular size, wall thickness and motion. Preserved left | |ventricular systolic function. LVEF is 65-70%. | |3. Mildly thickened mitral valve with a mild mitral valve regurgitation. | |4. Mild mitral annular calcification. | |5. Normally functioning bioprosthetic aortic valve replacement. Valve seated | |solidly. No significant aortic valve insufficiency. | |6. Cjlu-kv-dslbgvoq tricuspid valve regurgitation. | |7. Borderline pulmonary hypertension with a peak systolic pressure of 35-40 | |mmHg. | |8. Dilated IVC with a normal collapse suggesting mild fluid retention. | | | |Signature | | | | Electronically signed by GODWIN WAGNER MD(Interpreting physician) on | | 09/12/2017 06:53 AM | | | | | |Findings | |Mitral Valve | |Thickening and calcification of the mitral valve leaflets. | |Mild mitral annular calcification is present. | |Aortic Valve | |Evidence of bioprosthetic aortic valve replacement. | |Tricuspid Valve | |Uenc-jk-kbfmkqrb tricuspid regurgitation suggestive of a mildly elevated | |right systolic pressure of 35-40 mmHg. | |Pulmonic Valve | |Normal pulmonic valve structure and function. Normal pulmonary valve and | |RVOT flow by color and Doppler flow imaging. | |Left Atrium | |The left atrium is mildly dilated. | |Left Ventricle | |Left ventricle is normal in size and function. Ejection fraction is | |estimated at 65-70 %. | |Right Atrium | |Mildly enlarged right atrial size. | |Right Ventricle | |Normal right ventricular size. | |Right ventricle global systolic function is normal. | |TAPSE =1.5 cm. | |Pericardial Effusion | |No evidence of pericardial effusion. | |Pleural Effusion | |No evidence of pleural effusion. | |Miscellaneous | |Dilated IVC with normal collapse. | |Aortic root dimension within normal limits. | | | |Valves | | | | Mitral Valve | | | | Tissue Doppler | | | | Septal e' Velocity: 0.19 m/s | | | | Aortic Valve | | | | Peak Velocity: 1.4 m/s | | Peak Gradient: 7.84 mmHg | | | | Tricuspid Valve | | | | TR Velocity: 2.4 m/s | | | |Structures | | | | Left Atrium | | | | LA A/P Dimension: 5.3 cm LA Volume: 92 ml | | LA Vol/BSA Index: 38 mL/m^2 | | | | Left Ventricle | | | | Diastolic Dimension: 5.9 cm | | Septum Diastolic: 0.9 cm | | PW Diastolic: 0.9 cm | | EF Umnhyvpof43% | | | | Miscellaneous | | | | Aorta | | | | Aortic Root: 3.3 cm | + + + +---------+ + + | Performing | Address | City/State/Zipcode | Phone Number | | Organization | | | | + +---------+ + + | [facility] | | | | + +---------+ + + ECG - EXTERNAL SCAN (08/11/2017 12:00 AM PDT) + + + | Narrative | Performed At | + + + | Ordered by an | | | unspecified provider. | | + + + documented in this encounter Visit Diagnoses + + | Diagnosis | + + | Edema, unspecified type - Primary | + + | Atrial fibrillation, unspecified type (HCC) | + + | Fatigue, unspecified type | + + | S/P AVR Heart valve replaced by other means | + + | Pacemaker - Medtronic - [id number] Adapta - Implanted 02/27/2012 DO NOT RESOLVE Cardiac | | pacemaker in situ | + + | Sinoatrial node dysfunction (HCC) DO NOT DELETE. Sinoatrial node dysfunction | + + | Hypertension Unspecified essential hypertension | + + | 2. Bicuspid aortic valve with dilated aortic root - mild aortic insufficiency - | | Echocardiogram 09/13/04 reveals peak gradient of 11, calculated valve area of 2.3 cm2, | | and mildly dilated ascending aort Congenital insufficiency of aortic valve | + + documented in this encounter
--- OUTSIDE RECORDS SUMMARY | ~2019-10-21 | XMS | Encounter Summary ---
Demographics + + + | Address | [address] | | | [place] [address] | + + + | Home Phone | | + + + | Preferred Language | Unknown | + + + | Marital Status | | + + + | Jewish Affiliation | 1009 | + + + | Race | Unknown | + + + | Ethnic Group | Unknown | + + + Author + + + | Author | [facility] | | | and Jose Enriqueana | + + + | Organization | [facility] | | | and Jose Enriqueana | + + + | Address | Unknown | + + + | Phone | Unavailable | + + + Support + + + + + | Name | Relationship | Address | Phone | + + + + + | Sharlene Lagunas | ECON | [address] | | | [place] | | [address], [place] | | | | | [address] | | + + + + + | Rickey Bui | ECON | [address] [place], [place] | | | | | [address] | | + + + + + Care Team Providers + +------+ + | Care Supply Chain Assistant Name | Role | Phone | + +------+ + | Luna Larson | PCP | | | PA | | | + +------+ + Reason for Visit + + + | Reason | Comments | + + + | CPAP Follow Up | | + + + Encounter Details +--------+---------+ + + + | Date | Type | Department | Care Team | Description | +--------+---------+ + + + | 10/24/ | Office | [facility] | Rickey Zaragoza PA | ABAD on CPAP (Primary | | 2019 | Visit | SLEEP DISORDER [address] | [address] | Dx) | | | | [address] | [place] | | | | | [place] [address] | [id number] | | | | | [phone] | | | +--------+---------+ + + + Social History [...] + + + | Blood Pressure | 128/70 | 10/24/2018 1:55 PM | | | | | PDT | | + + + + + | Pulse | 77 | 10/24/2018 1:55 PM | | | | | PDT | | + + + + + | Temperature | - | - | | + + + + + | Respiratory Rate | 16 | 10/24/2018 1:55 PM | | | | | PDT | | + + + + + | Oxygen Saturation | 98% | 10/24/2018 1:55 PM | | | | | PDT | | + + + + + | Inhaled Oxygen | - | - | | | Concentration | | | | + + + + + | Weight | 111.2 kg (245 lb 2.4 | 10/24/2018 1:55 PM | | | | oz) | PDT | | + + + + + | Height | - | - | | + + + + + | Body Mass Index | 29.84 | 08/15/2018 11:13 AM | | | | | PDT | | + + + + + documented in this encounter Progress Notes Teetee Jameson, Geothermal Installer - 10/24/2018 2:30 PM PDTFormatting of this note might be d ifferent from the original. 10/24/18 1400 Jules Depression Inventory-II Depression Score 11 - Minimal depression Insomnia Severity Index Insomnia Severity Index 14 [place] Sleepiness Scale 1. Sitting and reading 2 2. Watching TV 1 3. Sitting, inactive in a public place (e.g. a theatre or a meeting) 1 4. As a passenger in a car for an hour without a break 1 5. Lying down to rest in the afternoon when circumstances permit 2 6. Sitting and talking to someone 1 7. Sitting quietly after a lunch without alcohol 1 8. In a car, while stopped for a few minutes in traffic 0 Total score 9 SF-36v2 Score PF 47.97 RP 50.42 BP 46.68 GH 37.97 VT 46.66 SF 47.31 RE 56.17 MH 56.1 PCS 42.62 MCS 55.06 Rickey Ac PA - 09/2018 2:30 PM PDT Subjective: Patient ID: Prabhjot Bui is a 72 y.o. male. HPI last office visit: 08/14/2017 date of polysomnography: 03/01/2004 AHI: 14.0 (35.3 during REM) O2%: 90% Machine type: ResMed AirSense 10 Mask type: full face mask DME: [place] in [place] pressure: 6-16 cm Median: 7.7 cm 95%: 10.6 cm maxium: 11.6 cm Nights using CPAP: 365/365 % of nights >4 hours: 95% Average usage (all nights): 6:06 average usage (nights used): 6:06 AHI: 4.3 Prabhjot comes in for CPAP compliance. He has struggled with wearing his CPAP for the duration of his sleep on a nightly basis in the past, but he has done much better with the ResMed rSense 10. He continues to feel that it is working better than his previous machine. He is wearing it nightly for the duration of his sleep. He has had problems with mask leaks from his full face mask. He purchased a new mask today because he has noticed the leaks worseni ng recently. He says he doesn't really like his mask (older style ResMed) because it causes soreness to the bridge of his nose. We discussed other mask options. He does not have any other questions or concerns. I have discussed the download and paperwork in detail. This shows that his sleep apnea is controlled, with an AHI of 4.3. It also shows that his leaks are severe. BP 128/70 | Pulse 77 | Resp 16 | Wt 111.2 kg (245 lb 2.4 oz) | SpO2 98% | BMI 29.84 kg /m Review of Systems Objective: Physical Exam Assessment: Problem #1: OBSTRUCTIVE SLEEP APNEA (ILA60-R02.33) This is controlled with CPAP. His CPAP compliance is going well with his ResMed AirSense 1 0. He continues to have severe mask leak. Plan: 1. He is to continue with CPAP indefinitely. 2. He is to go to [place] to look at other full face mask options. 3. Touch base with medical supplier twice per year to ensure that all equipment is satisfa ctory. I will follow up again in 1 year, sooner prn. Fifteen minutes were spent njsc-[id number]-ento, wit h the majority of time spent in counseling. Rickey Zaragoza PA-C Cc: KENNETH Esptiia documented in this enco unter Plan of Treatment +--------+---------+ + + + | Date | Type | Specialty | Care Team | Description | +--------+---------+ + + + | 10/30/ | Office | Sleep Medicine | Rickey Zaragoza PA | | | 2019 | Visit | | [address] | | | | | | [place] | | | | | | [address] | | | | | | | | +--------+---------+ + + + documented as of this encounter Visit Diagnoses + + | Diagnosis | + + | ABAD on CPAP - Primary Obstructive sleep apnea (adult) (pediatric) | + + documented in this encounter"
--- OUTSIDE RECORDS SUMMARY | ~2019-10-21 | XMS | Encounter Summary ---
Demographics + + + | Address | [address] | | | [place] [address] | + + + | Home Phone | | + + + | Preferred Language | Unknown | + + + | Marital Status | | + + + | Worship Affiliation | 1009 | + + + | Race | Unknown | + + + | Ethnic Group | Unknown | + + + Author + + + | Author | [facility] | | | and Jose Enriqueana | + + + | Organization | [facility] | | | and Jose Enriqueana | + + + | Address | Unknown | + + + | Phone | Unavailable | + + + Support + + + + + | Name | Relationship | Address | Phone | + + + + + | Sharlene Lagunas | ECON | [address] | | | [address] | | [address], [place] | | | | | [address] | | + + + + + | Rickey Bui | ECON | [address] [place], [place] | | | | | [address] | | + + + + + Care Team Providers + +------+ + | Care Lpc Name | Role | Phone | + +------+ + | Luna Larson | PCP | | | PA | | | + +------+ + Reason for Visit + + + | Reason | Comments | + + + | Device Check | reminder | | (Remote) | | + + + Encounter Details +--------+ + + + + | Date | Type | Department | Care Team | Description | +--------+ + + + + | 07/03/ | Telephone | [facility] | Joel Moise | Device Check | | 2019 | | CARDIOLOGY [facility] | [address] | (Remote) (reminder) | | | | [facility] [address] | [address] | | | | | [facility] [address] [place], [place] | [place] [address] | | | | | [address] | [phone] | | | | | [phone] | | | +--------+ + + + [...] [place] | | | | | | [address] | | | | | | | | +--------+---------+ + + + documented as of this encounter Visit Diagnoses Not on filedocumented in this encounter"
--- OUTSIDE RECORDS SUMMARY | ~2019-10-21 | XMS | Encounter Summary ---
Demographics + + + | Address | [address] | | | [place] [address] | + + + | Home Phone | | + + + | Preferred Language | Unknown | + + + | Marital Status | | + + + | Yazdanism Affiliation | 1009 | + + + | Race | Unknown | + + + | Ethnic Group | Unknown | + + + Author + + + | Author | [facility] | | | and Jose Enriqueana | + + + | Organization | [facility] | | | and Jose Enriqueana | + + + | Address | Unknown | + + + | Phone | Unavailable | + + + Support + + + + + | Name | Relationship | Address | Phone | + + + + + | Sharlene Lagunas | ECON | [address] | | | [place] | | [address], [place] | | | | | [address] | | + + + + + | Rickey Bui | ECON | [address] [place], [place] | | | | | [address] | | + + + + + Care Team Providers + +------+ + | Care Director For [employer] Name | Role | Phone | + +------+ + | Taoy Robles DO | PCP | | + +------+ + Reason for Visit +--------+ + | Reason | Comments | +--------+ + | Other | | +--------+ + Encounter Details +--------+ + + + + | Date | Type | Department | Care Team | Description | +--------+ + + + + | 04/13/ | Telephone | [facility] | Joel Moise | Other | | 2015 | | [facility] | [address] | | | | | [address] | [place] [address] | | | | | [place] [address] [place] | [place] [address] | | | | | [address] | [phone] | | | | | [phone] | | | +--------+ + + + [...]
--- OUTSIDE RECORDS SUMMARY | ~2019-10-21 | XMS | Encounter Summary ---
Demographics + + + | Address | [address] | | | [place] [address] | + + + | Home Phone | | + + + | Preferred Language | Unknown | + + + | Marital Status | | + + + | Gnosticism Affiliation | 1009 | + + + | Race | Unknown | + + + | Ethnic Group | Unknown | + + + Author + + + | Author | [facility] | | | and Jose Enriqueana | + + + | Organization | [facility] | | | and Jose Enriqueana | + + + | Address | Unknown | + + + | Phone | Unavailable | + + + Support + + + + + | Name | Relationship | Address | Phone | + + + + + | Sharlene Lagunas | ECON | [address] | | | [address] | | [address], [place] | | | | | [address] | | + + + + + | Rickey Bui | ECON | [address] [place], [place] | | | | | [address] | | + + + + + Care Team Providers + +------+ + | Care Driller And Broacher Name | Role | Phone | + [...] Description | +--------+---------+ + + + | 09/08/ | Office | [facility] | Rickey Zaragoza PA | ABAD on CPAP (Primary | | 2017 | Visit | SLEEP DISORDER [address] | [address] | Dx) | | | | [address] | [place] | | | | | [place] [address] | [address] | | | | | [phone] | | | +--------+---------+ + + + [...] + + + | Blood Pressure | 136/76 | 09/08/2016 11:04 AM | | | | | PDT | | + + + + + | Pulse | 81 | 09/08/2016 11:04 AM | | | | | PDT | | + + + + + | Temperature | - | - | | + + + + + | Respiratory Rate | 16 | 09/08/2016 11:04 AM | | | | | PDT | | + + + + + | Oxygen Saturation | 98% | 09/08/2016 11:04 AM | | | | | PDT | | + + + + + | Inhaled Oxygen | - | - | | | Concentration | | | | + + + + + | Weight | 104.6 kg (230 lb 8 | 09/08/2016 11:04 AM | | | | oz) | PDT | | + + + + + | Height | - | - | | + + + + + | Body Mass Index | 28.06 | 09/05/2016 1:38 PM | | | | | PDT | | + + + + + documented in this encounter Progress Notes Rickey Zaragoza PA - 09/08/2016 10:54 AM PDT Subjective: Patient ID: Prabhjot Bui is a 70 y.o. male. HPI last office visit: 07/05/2016 date of polysomnography: 03/01/2004 AHI: 14.0 (35.3 during REM) O2%: 90% Machine type: ResMed AirSense 10 Mask type: full face mask DME: [facility] in [place] pressure: 6-16 cm Median: 7.1 cm 95%: 9.9 cm maxium: 11.0 cm Nights using CPAP: 34/34 % of nights >4 hours: 91% Average usage (all nights): 5:24 average usage (nights used): 5:24 AHI: 3.7 Prabhjot comes in for CPAP compliance. He has struggled with wearing his CPAP for the duration of his sleep on a nightly basis in the past, but he has done much better with the ResMed rSense 10. He feels that it is working better than his previous machine. He has used it ni ghtly for the duration of his sleep and he feels that he is sleeping better and feels more r ested during the day. He does not have any questions or concerns. I have discussed the download in detail. This shows that his sleep apnea is well controlle d, with an AHI of 3.7. It also shows that his leaks are well controlled. It shows that he is wearing his CPAP >4 hours for 93% of the nights during 30 consecutive nights. BP 136/76 mmHg | Pulse 81 | Resp 16 | Wt 104.554 kg (230 lb 8 oz) | SpO2 98% Review of Systems Objective: Physical Exam Assessment: Problem #1: OBSTRUCTIVE SLEEP APNEA ([id number]-X91.33) This is controlled with CPAP. His CPAP compliance is going well with his ResMed AirSense 1 0. He has used his CPAP >4 hours for 93% of the nights for 30 consecutive nights. Plan: 1. He is to continue with CPAP indefinitely. 2. I have recommended that he continue to work toward wearing his CPAP 100% of the time he is asleep. 3. Touch base with medical supplier twice per year to ensure that all equipment is satisfa ctory. I will follow up again in 1 year, sooner prn. At that time we will reassess with all appro priate paperwork. Fifteen minutes were spent edvk-hs-zagx, with the majority of time spent in counseling. Rickey Zaragoza PA-C Cc: Tayo Robles DO documented in this enco unter Plan of Treatment +--------+---------+ + + + | Date | Type | Specialty | Care Team | Description | +--------+---------+ + + + | 10/30/ | Office | Sleep Medicine | Rickey Zaragoza PA | | | 2020 | Visit | | [address] | | | | | | [place] | | | | | | [address] | | | | | | | | +--------+---------+ + + + documented as of this encounter Visit Diagnoses + + | Diagnosis | + + | ABAD on CPAP - Primary Obstructive sleep apnea (adult) (pediatric) | + + documented in this encounter"
--- OUTSIDE RECORDS SUMMARY | ~2019-10-21 | XMS | Encounter Summary ---
Demographics + + + | Address | [address] | | | [place] [address] | + + + | Home Phone | | + + + | Preferred Language | Unknown | + + + | Marital Status | | + + + | Scientology Affiliation | 1009 | + + + | Race | Unknown | + + + | Ethnic Group | Unknown | + + + Author + + + | Author | [facility] | | | and Jose Enriqueana | + + + | Organization | [facility] | | | and Jose Enriqueana | + + + | Address | Unknown | + + + | Phone | Unavailable | + + + Support + + + + + | Name | Relationship | Address | Phone | + + + + + | Sharlene Lagunas | ECON | [address] | | | [place] | | [address], [place] | | | | | [address] | | + + + + + | Rickey Bui | ECON | [address] [place], [place] | | | | | [address] | | + + + + + Care Team Providers + +------+ + | Care Air Grinder Name | Role | Phone | + +------+ + | Tayo Robles DO | PCP | | + +------+ + Reason for Visit + + + | Reason | Comments | + + + | Device Check | Remote reminder | | (Remote) | | + + + Encounter Details +--------+ + + + + | Date | Type | Department | Care Team | Description | +--------+ + + + + | 07/05/ | Telephone | [facility] | Delio, | Device Check | | 2018 | | [facility] | [place], | (Remote) (Remote | | | | [address] | Technologist | reminder) | | | | [place] [address] [place] | | | | | | [address] | | | | | | [phone] | | | +--------+ + + + [...] [place] | | | | | | [id number] | | | | | | | | +--------+---------+ + + + documented as of this encounter Visit Diagnoses Not on filedocumented in this encounter"
--- OUTSIDE RECORDS SUMMARY | ~2019-10-21 | XMS | Encounter Summary ---
Demographics + + + | Address | [address] | | | [place] [address] | + + + | Home Phone | | + + + | Preferred Language | Unknown | + + + | Marital Status | | + + + | Anabaptism Affiliation | 1009 | + + + | Race | Unknown | + + + | Ethnic Group | Unknown | + + + Author + + + | Author | [facility] | | | and Jose Enriqueana | + + + | Organization | [facility] | | | and Jose Enriqueana | + + + | Address | Unknown | + + + | Phone | Unavailable | + + + Support + + + + + | Name | Relationship | Address | Phone | + + + + + | Sharlene Lagunas | ECON | [address] | | | [address] | | [address], [place] | | | | | [address] | | + + + + + | Rickey Bui | ECON | [address] [place], [place] | | | | | [address] | | + + + + + Care Team Providers + +------+ + | Care Warehouse Order Picker Name | Role | Phone | + +------+ + | Luna Larson | PCP | | | PA | | | + +------+ + Reason for Visit + + + | Reason | Comments | + + + | Medication Refill | | + + + Encounter Details +--------+--------+ + + + | Date | Type | Department | Care Team | Description | +--------+--------+ + + + | 05/20/ | Refill | [facility] | Joel Moise | Medication Refill | | 2019 | | [facility] | MD [address] [place] [address] | | | | | [address] | [place] [address] | | | | | [address] | [place] [address] | | | | | [address] | [phone] | | | | | [phone] | | | +--------+--------+ + + + Social History + +-------+ [...]
--- OUTSIDE RECORDS SUMMARY | ~2019-10-21 | XMS | Encounter Summary ---
Demographics + + + | Address | [address] | | | [place] [address] | + + + | Home Phone | | + + + | Preferred Language | Unknown | + + + | Marital Status | | + + + | Alevism Affiliation | 1009 | + + + | Race | Unknown | + + + | Ethnic Group | Unknown | + + + Author + + + | Author | [facility] | | | and Jose Enriqueana | + + + | Organization | [facility] | | | and Jose Enriqueana | + + + | Address | Unknown | + + + | Phone | Unavailable | + + + Support + + + + + | Name | Relationship | Address | Phone | + + + + + | Sharlene Lagunas | ECON | [address] | | | [place] | | [address], [place] | | | | | [address] | | + + + + + | Rickey Bui | ECON | [address] [place], [place] | | | | | [address] | | + + + + + Care Team Providers + +------+ + | Care Director Graphics Name | Role | Phone | + +------+ + | Luna Larson | PCP | | | PA | | | + +------+ + Reason for Visit + + + | Reason | Comments | + + + | Device Check | Not billed | | (Remote) | | + + + Encounter Details +--------+ + + + + | Date | Type | Department | Care Team | Description | +--------+ + + + + | 08/19/ | Implant | [facility] | Damaris Preciado Y, | Sinoatrial node | | 2020 | Monitor | [facility] | RN | dysfunction (HCC) | | | | HI[address] | | (Primary Dx); | | | | [place] [address], [place] | | Cardiac pacemaker in | | | | [address] | | situ | | | | [phone] | | | +--------+ + + + [...] | | + + +---------+ + + +--------+ + | Physical Activity | Answer | Date Recorded | + +--------+ + | On average, how many days per week do you | 4 days | 08/19/2019 | | engage in moderate to strenuous exercise | | | | (like walking fast, running, jogging, | | | | dancing, swimming, biking, or other | | | | activities that cause a light or heavy | | | | sweat)? | | | + +--------+ + | On average, how many minutes do you engage | 90 min | 08/19/2019 | | in exercise at this level? | | | + +--------+ + + + + | Sex Assigned [...] | +--------+---------+ + + + | 10/30/ Office | Sleep Medicine | Rickey Zaragoza PA | | | 2019 | Visit | | [address] | | | | | | [place] | | | | | | [address] | | | | | | | | +--------+---------+ + + + documented as of this encounter Procedures + +--------+ + + + | Procedure Name | Priori | Date/Time | Associated Diagnosis | Comments | | | ty | | | | + +--------+ + + + | DEVICE | Routin | 08/20/2019 | Sinoatrial node | Results for this | | INTERROGATION- | e | 11:59 PM | dysfunction (HCC) | procedure are in the | | REMOTE | | PDT | Cardiac pacemaker in | results section. | | | | | situ | | + +--------+ + + + documented in this encounter Results Device Interrogation - Remote (08/20/2019 11:59 PM PDT) + + + | Narrative | Performed At | + + + | Damaris Tolbert | [facility] | | ANASTASIYA Preciado 08/18/2019 12:26 PM PATIENT NAME: Prabhjot Lee | | | [facility] : 1945: AGE: 73 y.o. Remote | | | Pacemaker Evaluation Report August 16, 2019 Reason for evaluation: | | | Pre-appointment remote for an appointment with Dr. Moise on | | | 08/19/19.Indication for pacemaker: ICD-10-CM ICD-9-CM 1. Sinoatrial | [...] parameters | | | were reviewed. Settings Medtronic Adapta PacemakerMode: VVIR, 70 | | | (130)Ventricular Output: 2.0V @ 0.4ms (adaptive) Data Presenting | | | rhythm is atrial flutter with NURSE SUBSTANCE ABUSE/VS, ~78 bpm. NURSE SUBSTANCE ABUSE 72.8%. Heart rate | | | histogram appears appropriate with a small increase in sensor driven | | | rates 90-100 bpm. Battery status: satisfactory. Voltage: 2.77 V. | | | Estimated remaining longevity: 6 years. Lead impedance appears | | | within normal limits.Events noted since 08/15/18: 6 HVR episodes, (3 | | | new) 4 seconds to (2:07 minutes on 07/13/19), most recent on 07/13/19 | | | for 7 seconds, V rates 180-202 bpm. Markers with brief EGM's show | | | regular and irregular fast VS, most suggestive of RVR and some with | | | possible brief NSVT episodes. On anticoagulation. Patient with a | | | history of previously seen brief NSVT.Device function appears | | | appropriate. Remote follow-up per schedule, due next 10/02/19. | | | Supervising and interpreting physician for this remote,Joel Balderrama | | | MD Jose Maria | | |Medtronic Adapta Pacemaker | | |Mode: VVIR, 70 (130) | | |Ventricular Output: 2.0V @ 0.4ms (adaptive) | | | | | |Data | | | | | |Presenting rhythm is atrial flutter with NURSE SUBSTANCE ABUSE/VS, ~78 bpm. NURSE SUBSTANCE ABUSE | | |72.8%. Heart rate histogram appears appropriate with a small | | |increase in sensor driven rates 90-100 bpm. | | |Battery status: satisfactory. Voltage: 2.77 V. Estimated | | |remaining longevity: 6 years. Lead impedance appears within | | |normal limits. | | |Events noted since 08/15/18: | | | 6 HVR episodes, (3 new) 4 seconds to (2:07 minutes on 07/13/19), | | |most recent on 07/13/19 for 7 seconds, V rates 180-202 bpm. | | |Markers with brief EGM's show regular and irregular fast VS, most | | |suggestive of RVR and some with possible brief NSVT episodes. On | | |anticoagulation. Patient with a history of previously seen brief | | |NSVT. | | |Device function appears appropriate. | | | | | |Remote follow-up per schedule, due next 10/02/19. | | | | | |Supervising and [...]
--- OUTSIDE RECORDS SUMMARY | ~2019-10-21 | XMS | Encounter Summary ---
Demographics + + + | Address | [address] | | | [place] [address] | + + + | Home Phone | | + + + | Preferred Language | Unknown | + + + | Marital Status | | + + + | Christian Affiliation | 1009 | + + + | Race | Unknown | + + + | Ethnic Group | Unknown | + + + Author + + + | Author | [facility] | | | and Jose Enriqueana | + + + | Organization | [facility] | | | and Jose Enriqueana | + + + | Address | Unknown | + + + | Phone | Unavailable | + + + Support + + + + + | Name | Relationship | Address | Phone | + + + + + | Sharlene Lagunas | ECON | [address] | | | [place] | | [address], [place] | | | | | [address] | | + + + + + | Rickey Bui | ECON | [address] [place], [place] | | | | | [address] | | + + + + + Care Team Providers + +------+ + | Care Wildlife Refuge Manager Name | Role | Phone | + [...] Description | +--------+--------+ + + + | 12/02/ | Refill | [facility] | Joel Moise | Medication Refill | | 2013 | | [facility] | MD Conch[place] [address] [place] [address] | | | | | [facility] [address] | [facility] [address] | | | | | [place] [address] [place] | [place] [address] | | | | | [address] | [phone] | | | | | [phone] | | | +--------+--------+ + + + [...] | | | + +---+---+---+ + + +---------+ + | Alcohol Use | Drinks/Week | oz/Week | Comments | + + +---------+ + | No | | | | + + +---------+ + [...] SERVIN | | | | | | [id number] | | | | | | | | +--------+---------+ + + + documented as of this encounter Visit Diagnoses Not on filedocumented in this encounter"
--- OUTSIDE RECORDS SUMMARY | ~2019-10-21 | XMS | Encounter Summary ---
Demographics + + + | Address | [address] | | | [place] [address] | + + + | Home Phone [...] | Author | [facility] | | | and Jose Enriqueana | + + + | Organization | [facility] | | | and Jose Enriqueana | + + + | Address | Unknown | + + + | Phone | Unavailable | + + + Support + + + + + | Name | Relationship | Address | Phone | + + + + + | Sharlene Lagunas | ECON | [address] | | | [place] | | [address], [place] | | | | | [address] | | + + + + + | Rickey Bui | ECON | [address] [place], [place] | | | | | [address] | | + + + + + Care Team Providers + +------+ + | Care Storage Center Manager Name | Role | Phone | + +------+ + | Tayo Robles DO | PCP | | + +------+ + Reason for Visit + + + | Reason | Comments | + + + | Atrial Fibrillation | follow up, Amiodarone therapy | + + + | Device Check | | + + + Encounter Details +--------+---------+ + + + | Date | Type | Department | Care Team | Description | +--------+---------+ + + + | 07/22/ | Office | [facility] | Joel Moise | 2. Bicuspid aortic | | 2013 | Visit | [facility] | MD [address]chis [address] | valve with dilated | | | | HI[address] | [address] | aortic root - mild | | | | [place] [address] [place] [address] | [place] [address] | aortic insufficiency | | | | [address] | [phone] | - Echocardiogram | | | | [phone] | | 09/13/04 reveals peak | | | | | | gradient of 11, | | | | | | calculated valve | | | | | | area of 2.3 cm2, and | | | | | | mildly dilated | | | | | | ascending aort | | | | | | (Primary Dx); | | | | | | Pacemaker - | | | | | | Medtronic - [id number] | | | | | | Adapta - Implanted | | | | | | 02/27/2012; Status | | | | | | post aortic valve | | | | | | replacement; | | | | | | Encounter for | | | | | | long-term (current) | | | | | | use of other | | | | | | medications; Atrial | | | | | | fibrillation/atrial | | | | | | flutter; | | | | | | Hypertension; Hx of | | | | | | amiodarone therapy | +--------+---------+ + + + Social History [...] + + + | Blood Pressure | 140/86 | 07/22/2013 2:38 PM | left | | | | PST | | + + + + + | Pulse | 78 | 07/22/2013 2:38 PM | regular | | | | PST | | + + + + + [...] + + + + | Weight | 108 kg (238 lb) | 07/22/2013 2:38 PM | | | | | PST | | + + + + + | Height | 195.6 cm (6' 5") | 07/22/2013 2:38 PM | | | | | PST | | + + + + + | Body Mass Index | 28.22 | 07/22/2013 2:38 PM | | | | | PST | | + + + + + documented in this encounter Patient Instructions Patient Instructions Joel Moise MD - 07/22/2013 3:22 PM PSTIn 6 weeks reduce Amioda samara to 200 mg daily Amio testing in about 3 months See me in 3 months documented in this encounter Progress Notes Joel Moise MD - 08/01/2013 5:39 PM PDTFormatting of this note might be different fr om the original. PATIENT NAME: Prabhjot Bui : 1945: AGE: 67 y.o. PRIMARY CARE: Tayo Robles CHIEF COMPLAINT: Chief Complaint Patient presents with Atrial Fibrillation follow up, Amiodarone therapy Device Check HISTORY OF PRESENT ILLNESS 67 y.o. year old male with followup for atrial fibrillation. At last visit he was persiste ntly in atrial fibrillation. This was noted 03/06/13. On amiodarone a his heart rhythm was more regular. Plan was to have the patient return for cardioversion and was carried out Oc tober 2012 returning to atrial paced rhythm. Thyroid levels are being managed by Dr. Miguel hale. He also is status post aortic valve replacement and valve function has been good. Hy pertension has been under control. He is not certain if he has necessarily more energy. Du ring the winter he is more sedentary. He definitely does not complaining of palpitations wh ich he did complain of previously. CURRENT ASSESSMENT BY PROBLEM LIST Atrial fibrillation/atrial flutter Rare episodes of atrial fibrillation. There is 0.9% of the time. Patient is doing well on amiodarone 300 mg 2 days a week and 200 mg 5 days a week. Plan: Reduce amiodarone to 200 mg daily in 6 weeks. Hypertension Blood pressure well-controlled Plan: Continue present medications Status post aortic valve replacement Heart valve sounds good no murmurs. Plan: Continue to follow Pacemaker - Medtronic - [id number] Adapta - Implanted 02/27/2012 Pacer function is appropriate. Thresholds are good. Outputs are appropriate. Plan: Continue to follow FOLLOWUP Return in about 3 months (around 10/22/2013) for a fib. MEDICATION ADJUSTMENTS New Prescriptions AMIODARONE (PACERONE) 200 MG TABLET One tab daily and and 1 1/2 tabs Mon and . These Medications Have Changed Start Taking Instead of warfarin (COUMADIN) 5 mg tablet warfarin (COUMADIN) 5 mg tablet Dosage: Take by mouth See Admin Instructions. As directed by PCP - Oral Dosage: 5 times a week metoprolol succinate (TOPROL XL) 50 mg 24 hr tablet metoprolol succinate (TOPROL XL) 50 mg 24 hr tablet Dosage: Take 1.5 tablets by mouth Daily. - Oral Dosage: Take 50 mg by mouth Daily. - Ora l Medications Discontinued During This Encounter Medication Reason B Complex Vitamins (B COMPLEX 50) TABS Therapy completed warfarin (COUMADIN) 7.5 mg tablet Duplicate Entry warfarin (COUMADIN) 5 mg tablet metoprolol succinate (TOPROL XL) 50 mg 24 hr tablet metoprolol succinate (TOPROL XL) 50 mg 24 hr tablet Reorder metoprolol succinate (TOPROL XL) 50 mg 24 hr tablet Reorder NEW ORDERS Orders Placed This Encounter Procedures XR Chest PA and Lateral ALT ALT TSH . MEDICAL, SURGICAL, AND PERSONAL HISTORY Past Medical History Diagnosis Date Paroxysmal atrial fibrillation (HCC) Aortic insufficiency and aortic stenosis Hypertension Diverticular disease Colon polyp Aortic root dilation (HCC) Past Surgical History Procedure Date Cardioversion 06/19/00,11/24/00,07/25/01,10/18/01,12/26/02,12/02/04 Atrial ablation surgery Inguinal hernia repair Wrist surgery left Cholecystectomy Aortic root replacement and reimplantation of coronary arteries 05/28/08 Dr. Kelsey Ascending aorta replacement 05/28/08 Dr. Kelsey Cardiac pacemaker placement 02/27/12 Cardioversion 03/07/13 Shoulder surgery 05/28/13 right His family history includes Atrial Fibrillation in his mother; Hypertension in his mother and sister; and Stroke (age of onset:62) in his sister. He reports that he has never smoked. He has never used smokeless tobacco. He reports that he does not drink alcohol or use illicit drugs. CURRENT MEDICATIONS Outpatient Encounter Prescriptions as of 07/22/2013 Medication Sig Dispense Refill amiodarone (PACERONE) 200 mg tablet One tab daily and and 1 1/2 tabs Mon and . 34 tablet 11 [DISCONTINUED] B Complex Vitamins (B COMPLEX 50) TABS daily CHELATED MAGNESIUM 100 MG TABS Take 100 mg by mouth Daily. Cholecalciferol (CVS VITAMIN D) 2000 UNITS CAPS three daily clonidine (CATAPRES) 0.2 MG tablet Take 0.2 mg by mouth 3 times daily. Coenzyme Q10 (COQ10) 50 MG CAPS Take 50 mg by mouth Daily. Cyanocobalamin (B-12 SL) SUBL .5 units or .25 twice a week DHEA 25 MG CAPS Take 25 mg by mouth Daily. fish oil 1,000 mg capsule Take 1,000 mg by mouth Daily. Garlic 1000 MG CAPS Take 1,000 mg by mouth Daily. MAGNESIUM SULFATE IN D5W IV SOLN twice weekly [DISCONTINUED] metoprolol succinate (TOPROL XL) 50 mg 24 hr tablet Take 75 mg by mouth Daily. [DISCONTINUED] metoprolol succinate (TOPROL XL) 50 mg 24 hr tablet Take 1.5 tablets by mouth Daily. 30 tablet metoprolol succinate (TOPROL XL) 50 mg 24 hr tablet Take 1.5 tablets by mouth Daily. 1 30 tablet 3 [DISCONTINUED] metoprolol succinate (TOPROL XL) 50 mg 24 hr tablet Take 50 mg by mouth Daily. [place], Serenoa repens, (SAW PALMETTO PO) CAPS four daily TAURINE PO CAPS eight daily Testosterone Cypionate (DEPO-TESTOSTERONE IM) OIL three times a week thyroid (ARMOUR THYROID) 60 MG tablet Take 60 mg by mouth 2 times daily. UNCODED MEDICATION Diagnosis: Obstructive Sleep Apnea ICD-9: 327.23 Length of Need: 99 Months 1 Device 0 warfarin (COUMADIN) 5 mg tablet Take by mouth See Admin Instructions. As directed by Dylan TA [DISCONTINUED] warfarin (COUMADIN) 5 mg tablet 5 times a week [DISCONTINUED] warfarin (COUMADIN) 7.5 mg tablet Take 7.5 mg by mouth Twice a week. ALLERGIES Allergies Allergen Reactions Amoxicillin Rash ROS 14 point ROS was completed and is negative except respiratory-wheezing -dysuria and hemat uria. Musculoskeletal-joint pain in the shoulder. Psych-insomnia and memory loss PHYSICAL EXAM BP 140/86 | Pulse 78 | Ht 1.956 m (6' 5") | Wt 107.956 kg (238 lb) | BMI 28.22 kg/m2 Body mass index is 28.22 kg/(m^2). GENERAL: Pleasant appearing in no apparent distress HEENT: Conjunctivae and lids are normal in appearance. Eyes: Extraocular movements intact. NECK: Supple, no JVD, Carotids are 2+ and brisk bilaterally without bruits. CHEST: Good inspiratory effort with no crackles, ronchi, or wheezes. Pacer site well-heale d. Well-healed midline sternotomy. CARDIAC: PMI is non-displaced. Regular rate and rhythm with normal S1 and S2. No murmurs, r ubs or gallops. Blood pressures are equal in upper extremities. ABDOMEN: Soft, non-tender, nondistended with normal, active bowel sounds. Normal abdominal pulsation without bruit. EXTREMITIES: No clubbing, cyanosis, 2+ edema PULSES: Right: radial 2+, femoral 2+ DP 2+, PT 2+ Left: radial 2+, femoral 2+ DP 2+, PT 2+ NEUROLOGIC: Non-focal. Patient is oriented to time, place, and person. Normal affect. SKIN: No rashes or skin breakdown. MUSCULOSKELETAL: Back is negative for scoliosis/kyphosis. Normal gait. Muscle strength is e qual bilaterally. LABS Lab Results Component Value Date WBC 5.9 02/27/2012 HGB 15.5 08/23/2012 HCT 47.2 08/23/2012 PLT 171 08/23/2012 CHOL 124 10/15/2010 TRIG 49 10/15/2010 HDL 44 10/15/2010 ALT 26 03/07/2013 AST 27 03/07/2013 NA 137 03/07/2013 K 4.5 03/07/2013 CL 105 03/07/2013 CREA 1.02 03/07/2013 BUN 13 03/07/2013 CO2 27 03/07/2013 TSH 0.07* 03/07/2013 PSA 1.02 08/23/2012 INR 3.0* 03/07/2013 Pacemaker analysis: See die cast technician note. This has been reviewed in detail. Thresholds good. Outputs appropriate. 1386 most switch episodes. Longest one hour. Tota l time 0.9%. A pace 96%. V. paced 16%. Thank you for allowing me to participate in the care of this patient. If you have any ques tions, please do not hesitate to contact me. Signed by: Joel Moise MD 08/01/2013, 17:39 Patient Care Team: Tayo Robles as PCP - General (Family Medicine - Sports Medicine) KENNETH Givens (Physician Structural Test Engineer) Joel Moise MD as Physician (Cardiology) documented in this encounter Plan of Treatment +--------+---------+ + + + | Date | Type | Specialty | Care Team | Description | +--------+---------+ + + + | 10/30/ | Office | Sleep Medicine | Rickey Zaragoza PA | | | 2019 | Visit | | [address] | | | | | | [place] | | | | | | [address] | | | | | | | | +--------+---------+ + + + +------+------+--------+ + + | Name | Type | Priori | Associated Diagnoses | Order Schedule | | | | ty | | | +------+------+--------+ + + | ALT | Lab | Routin | Encounter for | Expected: 10/20/2013 | | | | e | long-term (current) | (Approximate), | | | | | use of other | Expires: 07/22/2014 | | | | | medications | | +------+------+--------+ + + | ALT | Lab | Routin | Encounter for | Expected: 10/20/2013 | | | | e | long-term (current) | (Approximate), | | | | | use of other | Expires: 07/22/2014 | | | | | medications | | +------+------+--------+ + + | TSH | Lab | Routin | Encounter for | Expected: 10/20/2013 | | | | e | long-term (current) | (Approximate), | | | | | use of other | Expires: 07/22/2014 | | | | | medications | | +------+------+--------+ + + documented as of this encounter Results XR Chest PA and Lateral (12/10/2013 9:07 AM PDT) + + + | Impressions | Performed At | + + + | Results not interfaced with [facility]. Please see scanned report in | [facility] | | Media tab. No Amiodarone effects noted per ANASTASIYA Wong , dany in | [place] - | | 6 months. See Phone note | [facility] | + + + + + + + + | Performing | Address | City/State/Zipcode | Phone Number | | Organization | | | | + + + + + | [place] [facility] | [facility] [address] | [place] [address] | [phone] | | - [facility] | [place] | | | + + + + + documented in this encounter Visit Diagnoses + + | Diagnosis | + + | 2. Bicuspid aortic valve with dilated aortic root - mild aortic insufficiency - | | Echocardiogram 09/13/04 reveals peak gradient of 11, calculated valve area of 2.3 cm2, | | and mildly dilated ascending aort - Primary Congenital insufficiency of aortic valve | + + | Pacemaker - Medtronic - [id number] Adapta - Implanted 02/27/2012 Cardiac pacemaker in situ | + + | Status post aortic valve replacement Heart valve replaced by other means | + + | Encounter for long-term (current) use of other medications | + + | Atrial fibrillation/atrial flutter Atrial fibrillation | + + | Hypertension Unspecified essential hypertension | + + | Hx of amiodarone therapy Follow-up examination following completed treatment with | | high-risk medications, not elsewhere classified | + + documented in this encounter
--- OUTSIDE RECORDS SUMMARY | ~2019-10-21 | XMS | Encounter Summary ---
Demographics + + + | Address | [address] | | | [place] [address] | + + + | Home Phone | | + + + | Preferred Language | Unknown | + + + | Marital Status | | + + + | Jew Affiliation | 1009 | + + + | Race | Unknown | + + + | Ethnic Group | Unknown | + + + Author + + + | Author | [facility] | | | and Jose Enriqueana | + + + | Organization | [facility] | | | and Jose Enriqueana | + + + | Address | Unknown | + + + | Phone | Unavailable | + + + Support + + + + + | Name | Relationship | Address | Phone | + + + + + | Sharlene Lagunas | ECON | [address] | | | [place] | | [address], [place] | | | | | [address] | | + + + + + | Rickey Bui | ECON | [address] [place], [place] | | | | | [address] | | + + + + + Care Team Providers + +------+ + | Care Matching Machine Operator Name | Role | Phone | + +------+ + PCP | Unavailable | + +------+ + Encounter Details +--------+ + + + + | Date | Type | Department | Care Team | Description | +--------+ + + + + | 02/12/ | Hospital | [facility] | | | | 1998 | Encounter | MED [facility] GENER[facility] | | | | | | CONV DEPT [address] | | | | | | [place], | | | | | | [place] [address] | | | | | | [phone] | | | +--------+ + + + + Social History + +-------+ +--------+------+ | Tobacco Use | Types | Packs/Day | Years | Date | | | | | Used | | + +-------+ +--------+------+ | Never Assessed | | | | | + +-------+ +--------+------+ + + + | Sex Assigned at [...] SERVIN | | | | | | [address] | | | | | | | | +--------+---------+ + + + documented as of this encounter Visit Diagnoses Not on filedocumented in this encounter"
--- OUTSIDE RECORDS SUMMARY | ~2019-10-21 | XMS | Encounter Summary ---
Demographics + + + | Address | [address] | | | [place] [address] | + + + | Home Phone | | + + + | Preferred Language | Unknown | + + + | Marital Status | | + + + | Moravian Affiliation | 1009 | + + + | Race | Unknown | + + + | Ethnic Group | Unknown | + + + Author + + + | Author | [facility] | | | and Jose Enriqueana | + + + | Organization | [facility] | | | and Jose Enriqueana | + + + | Address | Unknown | + + + | Phone | Unavailable | + + + Support + + + + + | Name | Relationship | Address | Phone | + + + + + | Sharlene Lagunas | ECON | [address] | | | [place] | | [address], [place] | | | | | [address] | | + + + + + | Rickey Bui | ECON | [address] [place], [place] | | | | | [address] | | + + + + + Care Team Providers + +------+ + | Care Driller Operator Name | Role | Phone | + +------+ + | Tayo Robles DO | PCP | | + +------+ + Reason for Visit + + + | Reason | Comments | + + + | Atrial Fibrillation | | + + + | Device Check | | | (In-office) | | + + + Encounter Details +--------+---------+ + + + | Date | Type | Department | Care Team | Description | +--------+---------+ + + + | 06/03/ | Office | [facility] | Augusto Moise | Sinoatrial node | | 2016 | Visit | [facility] | [address] | dysfunction ([facility]) DO | | | | ID4 [address] | [address] | NOT DELETE. | | | | [place] [address] | [place] [address] | (Primary Dx); | | | | [address] | [phone] | Pacemaker - | | | | [phone] | | Medtronic - [id number] | | | | | | Adapta - Implanted | | | | | | 02/27/2012 DO NOT | | | | | | RESOLVE; Paroxysmal | | | | | | atrial fibrillation | | | | | | ([facility]); Atrial | | | | | | flutter, unspecified | | | | | | ([facility]); Hx of | | | | | | amiodarone therapy; | | | | | | 2. Bicuspid aortic | | | | | [...] | | | | | | ascending aort; | | | | | | Hypertension | +--------+---------+ + + + Social History [...] + + + | Blood Pressure | 132/70 | 06/03/2015 10:55 AM | right | | | | PST | | + + + + + | Pulse | 75 | 06/03/2015 10:53 AM | | | | | PST | [...] + + + + | Weight | 106.6 kg (235 lb) | 06/03/2015 10:53 AM | | | | | PST | | + + + + + | Height | 177.8 cm (5' 10") | 06/03/2015 10:53 AM | | | | | PST | | + + + + + | Body Mass Index | 33.72 | 06/03/2015 10:53 AM | | | | | PST | | + + + + + documented in this encounter Patient Instructions Patient Instructions Augusto Moise MD - 06/03/2015 11:23 AM PSTContinue present meds and see me in 6 mos. documented in this encounter Progress Notes Augusto Moise MD - 06/03/2015 8:04 AM PST PATIENT NAME: Prabhjot Bui : 1945: AGE: 69 y.o. Date of service: 06/03/2015 PRIMARY CARE: Tayo Robles CHIEF COMPLAINT: Chief Complaint Patient presents with Atrial Fibrillation Device Check (In-office) HISTORY OF PRESENT ILLNESS 69 y.o. year old male seen in follow up for the problems listed below. Patient reports he i s feeling better as compared to 10 days ago secondary to hip surgery. When trying to exert h imself following surgery, he complained of exacerbated atrial fibrillation (increased rate) with shortness of breath that has improved as he continues to recover. He denies chest pain, orthopnea, paroxysmal nocturnal dyspnea, ankle edema, and palpitations. SHAYNA 04/2014 with the following noted: LVEF normal. RVEF normal. Mild to moderate mitral reg urgitation. Bioprosthetic aortic valve functionining normally. Mild TR. INTERPRETATION SUMMARY: A 2D transesophageal echocardiogram with color flow Doppler was performed. fibrillation transesophageal echocardiogram to evaluate for left atrial thrombus. Quality was satisfactory. The patient was post atrial appendage resection. No thrombus was identified in the left atrium. Left ventricular function appeared normal. There was mild to moderate mitral regurgitation present. CURRENT ASSESSMENT BY PROBLEM LIST 1. Sinoatrial node dysfunction - Patient is V paced 40% of the time and has evidence of SN D. 2. Pacemaker - Medtronic - [id number] Adapta - Implanted 02/27/2012 - Pacemaker function is appr opriate with good battery life. Changed pacing today to VVIR - recognizing the fact he is in chronic atrial fibrillation/flutter. 3. Paroxysmal atrial fibrillation - Presently chronic. 4. Atrial flutter, unspecified - Presently chronic. 5. Hx of amiodarone therapy - Patient has been off Amiodarone for a significant time. 6. Bicuspid aortic valve with dilated aortic root - mild aortic insufficiency status post a VR (biologic) (- Sounds good. Will re-echo in 6 months. 7. Hypertension - Well controlled. 8. Edema - Patient has marked edema in particular in operated leg - left leg - for hi p replacement. Patient is advised to consider diuretic therapy and presently and wants to av oid this. Will contact us if symptoms worsen. Plan: 1. Continue present medications. 2. Echocardiogram in approximately 2015 in follow-up of biologic aVR 3. Follow up in 6 months. FOLLOWUP Return in about 6 months (around 12/02/2015) for a fib/ pacer . MEDICATION ADJUSTMENTS New Prescriptions No medications on file Medications Discontinued During This Encounter Medication Reason Fluconazole (DIFLUCAN PO) Error Melatonin-Pyridoxine (MELATIN) 3-1 MG TABS Error UNABLE TO FIND Error NEW ORDERS No orders of the defined types were placed in this encounter. . MEDICAL, SURGICAL, AND PERSONAL HISTORY Past Medical History Diagnosis Date Paroxysmal atrial fibrillation (HCC) Last cardioversion 12/26/02. Pulmonary vein isolation carried out at the [facility] on 09/01/01. Aortic insufficiency and aortic stenosis Hypertension Labile hypertension. Blood pressure 194/120 approximately 06/10/05. Diverticular disease Colon polyp 1989 Aortic root dilation (HCC) Dilated aortic root - stable on echocardiogram 06/24/05 - 4.5 cm. - 4.8 cm previously: Aort ic root 4.5 x 4.7 cm echocardiogram 10/17/06. Elevated bilirubin Leg swelling Intermittent right leg swelling . wears support hose Phlebitis Phlebitis - right leg with superficial enlargement of superficial veins over the right th igh, improved at office visit 01/17/06. History of echocardiogram Bicuspid aortic valve - peak gradient 11, mean gradient 6 - echocardiogram 10/17/06. History of biopsy Lump on breast was biopsied in 04/2009 and was benign. SOB (shortness of breath) D/T A FIB W/ACTIVITY Atrial fibrillation (HCC) DR AUGUSTO MOISE Pacemaker MEDTRONIC Thyroid disease HYPOTHYROID Sleep apnea CPAP- WILL BRING Asthma RARELY USES ALBUTEROL INHALER Varicose veins TIA (transient ischemic attack) LAST 2009 OR 2010 HAS HAD "A FEW TIA"- Past Surgical History Procedure Laterality Date Cardioversion 06/19/00,11/24/00,07/25/01,10/18/01,12/26/02,12/02/04 Atrial ablation surgery 2002 ,2008 Wrist surgery left Cholecystectomy Aortic root replacement and reimplantation of coronary arteries 05/28/08 Dr. Kelsey Ascending aorta replacement 05/28/08 Dr. Kelsey Cardiac pacemaker placement 02/27/12 MEDTRONIC Cardioversion 03/07/13 Shoulder surgery 05/28/13 right Inguinal hernia repair X2 Ablation of dysrhythmic focus 04/30/2014 A-FIB ABLATION W/IVETTE AND SHAYNA W/DR SARAVIA; Laterality: N/A; Surgeon: Ty Arzola; Location: [facility] Hip joint replacement Left 05/17/15 His family history includes Atrial Fibrillation in his mother; Colon cancer in his brother ; Hypertension in his mother and sister; Stroke (age of onset: 62) in his sister. He reports that he has never smoked. He has never used smokeless tobacco. He reports that he does not drink alcohol or use illicit drugs. CURRENT MEDICATIONS Outpatient Encounter Prescriptions as of 06/03/2015 Medication Sig Dispense Refill anastrozole (ARIMIDEX) 1 mg tablet Take 0.25 tablets by mouth every 7 days. MONDAYS Cholecalciferol ([employer] VITAMIN D) 2000 UNITS CAPS Take 4,000 Units by mouth Daily. cloNIDine (CATAPRES) 0.2 MG tablet TAKE 1 TABLET TWICE A DAY 180 tablet 0 Coenzyme Q10 (EQL COQ10) 200 MG CAPS Take 200 mg by mouth Daily. Cyanocobalamin 1000 MCG/ML KIT Inject as directed Every 3 days. DHEA 25 MG CAPS Take 25 mg by mouth Daily. (Patient taking differently: Take 10 mg by m outh Daily.) digoxin (DIGOX) 250 mcg tablet Take 1 tablet by mouth Daily. 90 tablet 1 fish oil 1,000 mg capsule Take 1,000 mg by mouth Daily. [DISCONTINUED] Fluconazole (DIFLUCAN PO) Take by mouth. Garlic 1000 MG CAPS Take 1,000 mg by mouth Daily. L-Methylfolate 15 MG TABS Take 7.5 mg by mouth 2 times daily. magnesium sulfate 500 mg/mL injection Inject into the muscle Twice a week. Monday AND MONDAYAs directed [DISCONTINUED] Melatonin-Pyridoxine (MELATIN) 3-1 MG TABS Take 1 mg by mouth nightly. metoprolol succinate (TOPROL-XL) 50 mg 24 hr tablet TAKE 1 TABLET TWICE A DAY 180 table t 1 Probiotic Product (PROBIOTIC DAILY PO) Take by mouth. SYNTHROID 50 MCG tablet Take 1 tablet by mouth Daily. tamsulosin (FLOMAX) 0.4 mg CAPS Take 0.4 mg by mouth daily (after breakfast). TAURINE PO Take 1,500 mg by mouth 2 times daily. Six caps daily; Testosterone Cypionate (DEPO-TESTOSTERONE IM) Twice a week. thyroid (ARMOUR THYROID) 60 MG tablet Take 60 mg by mouth. 75mg in am and 30mg in pm [DISCONTINUED] UNABLE TO FIND Take 25 mg by mouth Daily. Med Name: IdODRIAL UNCODED MEDICATION Diagnosis: Obstructive Sleep Apnea ICD-9: 327.23 Length of Need: 99 Months 1 Device 0 warfarin (COUMADIN) 5 mg tablet Take by mouth See Admin Instructions. As directed by Dylan TA No facility-administered encounter medications on file as of 06/03/2015. ALLERGIES Allergies Allergen Reactions Flecainide Other (See Comments) AFTER 1ST ABLATION, HAD LEG SWELLING, INCREASED HEART RATE Amoxicillin Rash ROS 14 point ROS was completed and is negative except for: fatigue, hearing loss, palpitations, ankle swelling, and frequency. PHYSICAL EXAM BP 132/70 mmHg | Pulse 75 | Ht 1.778 m (5' 10") | Wt 106.595 kg (235 lb) | BMI 33.72 kg/m2 Body mass index is 33.72 kg/(m^2). GENERAL: Pleasant appearing in no apparent distress HEENT: Conjunctivae and lids are normal in appearance. Pharynx: benign Eyes: Extraocular movements intact. NECK: Supple, JVD none, Carotids are 2+ and brisk bilaterally without bruits. LUNGS: Full expansion. Clear to auscultation. CHEST: Well healed midline sternotomy. Well healed pacemaker site on the left. CARDIAC: PMI is non-displaced. Regular rate and rhythm with S1 normal, S2 normal. 2/6 ea rly to mid peaking DREAD at 2 LICS. murmurs. No rubs or gallops. Blood pressures are equal in upper extremities. ABDOMEN: Soft, non-tender, nondistended with normal, active bowel sounds. Normal abdominal pulsation without bruit. EXTREMITIES: No clubbing, cyanosis. 1-2+ edema on right. 2-3+ edema on left. Right leg vari cosities noted medial to the medial condyle and lateral to lateral condyle of right knee. L eft leg with prominent veins noted in left pretibial region and also medially. PULSES: PT trace on right. PT trace to 1+ on left. NEUROLOGIC: Non-focal. Patient is oriented to time, place, and person. Normal affect. SKIN: No rashes or skin breakdown. No bruising. MUSCULOSKELETAL: Back - no CVA or paravertebral tenderness. Muscle strength is equal bilate rally. EKG 06/30/14: SR at 73 bpm. A paced 1st degree AV block. Pacemaker Analysis: 06/03/2015 See deburr technician report. Thresholds are good. Outputs are appropriate. A paced 0.1%. V paced 40% approximately. Battery life: 10 years. Afib episodes: 100% Heart rate histogram is good. LABS Lab Results Component Value Date WBC 8.6 05/01/2014 HGB 14.0 05/01/2014 HCT 42.6 05/01/2014 PLT 142* 05/01/2014 CHOL 124 10/15/2010 TRIG 49 10/15/2010 HDL 44 10/15/2010 ALT 26 03/07/2013 AST 27 03/07/2013 NA 139 04/30/2014 K 4.3 04/30/2014 CL 106 04/30/2014 CREA 0.89 04/30/2014 BUN 13 04/30/2014 CO2 29* 04/30/2014 TSH 0.07* 03/07/2013 PSA 1.02 08/23/2012 INR 2.2* 05/01/2014 BNP NULL 02/28/2013 Thank you for allowing me to participate in the care of this patient. If you have any ques tions, please do not hesitate to contact me. This encounter was documented by Jesus Conklin , scribing for and in the presence of Aiden Moise MD who is performing the service. Attested at 06/03/2015 12:17 Signed by: Augusto Moise MD 06/03/2015, 12:17 Patient Care Team: Tayo Robles as PCP - General (Family Medicine - Sports Medicine) KENNETH Givens (Physician Organ Teacher) Augusto Moise MD as Physician (Cardiology) documented in this encounter Plan of Treatment +--------+---------+ + + + | Date | Type | Specialty | Care Team | Description | +--------+---------+ + + + | 10/30/ | Office | Sleep Medicine | Rickey Zaragoza PA | | | 2019 | Visit | | [address] | | | | | | [place] | | | | | | [phone] | | | | | | | | +--------+---------+ + + + documented as of this encounter Visit Diagnoses + + | Diagnosis | + + | Sinoatrial node dysfunction (HCC) DO NOT DELETE. - Primary Sinoatrial node | | dysfunction | + + | Pacemaker - Medtronic - [id number] Adapta - Implanted 02/27/2012 DO NOT RESOLVE Cardiac | | pacemaker in situ | + + | Paroxysmal atrial fibrillation (HCC) Atrial fibrillation | + + | Atrial flutter, unspecified | + + | Hx of amiodarone therapy Follow-up examination following completed treatment with | | high-risk medications, not elsewhere classified | + + | 2. Bicuspid aortic valve with dilated aortic root - mild aortic insufficiency - | | Echocardiogram 09/13/04 reveals peak gradient of 11, calculated valve area of 2.3 cm2, | | and mildly dilated ascending aort Congenital insufficiency of aortic valve | + + | Hypertension Unspecified essential hypertension | + + documented in this encounter
--- OUTSIDE RECORDS SUMMARY | ~2019-10-21 | XMS | Encounter Summary ---
Demographics + + + | Address | [address] | | | [place] [address] | + + + | Home Phone | | + + + | Preferred Language | Unknown | + + + | Marital Status | | + + + | Christian Affiliation | 1009 | + + + | Race | Unknown | + + + | Ethnic Group | Unknown | + + + Author + + + | Author | [facility] | | | and Jose Enriqueana | + + + | Organization | [facility] | | | and Jose Enriqueana | + + + | Address | Unknown | + + + | Phone | Unavailable | + + + Support + + + + + | Name | Relationship | Address | Phone | + + + + + | Sharlene Lagunas | ECON | [address] | | | [place] | | [facility] [place] | | | | | [address] | | + + + + + | Rickey Bui | ECON | [address] [place], [place] | | | | | [address] | | + + + + + Care Team Providers + +------+ + | Care American History Professor Name | Role | Phone | + +------+ + | Tayo Robles DO | PCP | | + +------+ + Reason for Visit + + + | Reason | Comments | + + + | Device Check | | | (Remote) | | + + + Encounter Details +--------+ + + + + | Date | Type | Department | Care Team | Description | +--------+ + + + + | 04/06/ | Telephone | [facility] | Debbie Jung, | Device Check | | 2015 | | [facility] | Production Hand | (Remote) | | | | [address] | | | | | | [place] [address] [place] | | | | | | [address] | | | | | | [phone] | | | +--------+ + + + [...]
--- OUTSIDE RECORDS SUMMARY | ~2019-10-21 | XMS | Encounter Summary ---
Demographics + + + | Address | [address] | | | [place] [address] | + + + | Home Phone | | + + + | Preferred Language | Unknown | + + + | Marital Status | | + + + | Temple Affiliation | 1009 | + + + | Race | Unknown | + + + | Ethnic Group | Unknown | + + + Author + + + | Author | [facility] | | | and Jose Enriqueana | + + + | Organization | [facility] | | | and Jose Enriqueana | + + + | Address | Unknown | + + + | Phone | Unavailable | + + + Support + + + + + | Name | Relationship | Address | Phone | + + + + + | Sharlene Lagunas | ECON | [address] | | | [place] | | [address], [place] | | | | | [address] | | + + + + + | Rickey Bui | ECON | [address] [place], [place] | | | | | [address] | | + + + + + Care Team Providers + +------+ + | Care Organ Installer Name | Role | Phone | + +------+ + | Tayo Robles DO | PCP | | + +------+ + Encounter Details +--------+ + + + + | Date | Type | Department | Care Team | Description | +--------+ + + + + | 04/03/ | Abstract | [place] [facility] | Joel Moise | Hypertension | | 2012 | | Conversion Location | MD [address] | (Primary Dx); | | | | [address] | [address] | Hyperthyroidism | | | | [place], [place] | [place] [address] | | | | | [address] | [phone] | | | | | [phone] | | | +--------+ + + + [...] + | Blood Pressure | 128/70 | 03/06/2013 9:52 AM | | | | | PDT | | + + + + + | Pulse | - | - | | + [...] + + + + | Weight | 103 kg (227 lb) | 02/21/2013 9:52 AM | | | | | PDT | | + + + + + | Height | 195.6 cm (6' 5") | 02/21/2013 9:52 AM | | | | | PDT | | + + + + + | Body Mass Index | 26.92 | 02/21/2013 9:52 AM | | | | | PDT | | + + + + + documented in this encounter Plan of Treatment [...] SERVIN | | | | | | [id number] | | | | | | | | +--------+---------+ + + + documented as of this encounter Visit Diagnoses + + | Diagnosis | + + | Hypertension - Primary Unspecified essential hypertension | + + | Hyperthyroidism Thyrotoxicosis without mention of goiter or other cause, without | | mention of thyrotoxic crisis or storm | + + documented in this encounter
--- OUTSIDE RECORDS SUMMARY | ~2019-10-21 | XMS | Encounter Summary ---
Demographics + + + | Address | [address] | | | [place] [address] | + + + | Home Phone | | + + + | Preferred Language | Unknown | + + + | Marital Status | | + + + | Tenriism Affiliation | 1009 | + + + | Race | Unknown | + + + | Ethnic Group | Unknown | + + + Author + + + | Author | [facility] | | | and Jose Enriqueana | + + + | Organization | [facility] | | | and Jose Enriqueana | + + + | Address | Unknown | + + + | Phone | Unavailable | + + + Support + + + + + | Name | Relationship | Address | Phone | + + + + + | Sharlene Lagunas | ECON | [address] | | | [place] | | [address], [place] | | | | | [address] | | + + + + + | Rickey Bui | ECON | [address] [place] [place], [place] | | | | | [address] | | + + + + + Care Team Providers + +------+ + | Care Equipment Cleaner And Tester Name | Role | Phone | + +------+ + PCP | Unavailable | + +------+ + Encounter Details +--------+ + + + + | Date | Type | Department | Care Team | Description | +--------+ + + + + | 02/01/ | Abstract | [place] [facility] | DATA MIGRATION POONAM | | | 2011 | | Conversion Location | SR | | | | | [address] [facility] | | | | | | [place], [place] | | | | | | [address] | | | | | | [phone] | | | +--------+ + + + [...] + + + | Blood Pressure | 118/68 | 11/28/2011 12:00 AM | | | | | PDT [...] + + + + | Weight | 106.7 kg (235 lb 3.2 | 11/28/2011 12:00 AM | | | | oz) | PDT | | + + + + + | Height | 194.3 cm (6' 4.5") | 07/13/2011 12:00 AM | | | | | PST | | + + + + + | Body Mass Index | 26.92 | 02/21/2013 12:00 AM | | | | | PDT [...] SERVIN | | | | | | [id number] | | | | | | | | +--------+---------+ + + + documented as of this encounter Visit Diagnoses Not on filedocumented in this encounter
--- OUTSIDE RECORDS SUMMARY | ~2019-10-21 | XMS | Encounter Summary ---
Demographics + + + | Address | [address] | | | [place] [address] | + + + | Home Phone | | + + + | Preferred Language | Unknown | + + + | Marital Status | | + + + | Quaker Affiliation | 1009 | + + + | Race | Unknown | + + + | Ethnic Group | Unknown | + + + Author + + + | Author | [facility] | | | and Jose Enriqueana | + + + | Organization | [facility] | | | and Jose Enriqueana | + + + | Address | Unknown | + + + | Phone | Unavailable | + + + Support + + + + + | Name | Relationship | Address | Phone | + + + + + | Sharlene Lagunas | ECON | [address] | | | [place] | | [address], [place] | | | | | [address] | | + + + + + | Rickey Bui | ECON | [address] [place], [place] | | | | | [address] | | + + + + + Care Team Providers + +------+ + | Care Anesthesia Associate Name | Role | Phone | + +------+ + PCP | Unavailable | + +------+ + Encounter Details +--------+ + + + + | Date | Type | Department | Care Team | Description | +--------+ + + + + | 09/08/ | Hospital | [facility] | | Unspecified Cardiac | | 2009 | Encounter | [address] | | Dysrhythmia | | | | [address] | | | | | | [place], [place] | | | | | | [address] | | | | | | [phone] | | | +--------+ + + + [...] 2019 | Visit | | [address] | | | | | | [place] | | | | | | [address] | | | | | | | | +--------+---------+ + + + documented as of this encounter Visit Diagnoses + + | Diagnosis | + + | Cardiac dysrhythmia, unspecified | + + documented in this encounter"
--- OUTSIDE RECORDS SUMMARY | ~2019-10-21 | XMS | Encounter Summary ---
Demographics + + + | Address | [address] | | | [place] [address] | + + + | Home Phone | | + + + | Preferred Language | Unknown | + + + | Marital Status | | + + + | Pentecostalism Affiliation | 1009 | + + + | Race | Unknown | + + + | Ethnic Group | Unknown | + + + Author + + + | Author | [facility] | | | and Jose Enriqueana | + + + | Organization | [facility] | | | and Jose Enriqueana | + + + | Address | Unknown | + + + | Phone | Unavailable | + + + Support + + + + + | Name | Relationship | Address | Phone | + + + + + | Sharlene Lagunas | ECON | [address] | | | [place] | | [address] [place] | | | | | [address] | | + + + + + | Rickey Bui | ECON | [address] [place], [place] | | | | | [address] | | + + + + + Care Team Providers + +------+ + | Care Rigging Loft Mechanic Name | Role | Phone | + [...] | +--------+ + + + + | 04/04/ | Telephone | [facility] | Luisa Martinez V, | Device Check | | 2017 | | [facility] | Technologist | (Remote) | | | | [address] | | | | | | [place] [address] [place] | | | | | | [address] | | | | | | [phone] | | | +--------+ + + + [...] | Visit | | [address] | | | | | | [place] | | | | | | [phone] | | | | | | | | +--------+---------+ + + + documented as of this encounter Visit Diagnoses Not on filedocumented in this encounter"
--- OUTSIDE RECORDS SUMMARY | ~2019-10-21 | XMS | Encounter Summary ---
Demographics + + + | Address | [address] | | | [place] [address] | + + + | Home Phone | | + + + | Preferred Language | Unknown | + + + | Marital Status | | + + + | Nondenominational Affiliation | 1009 | + + + | Race | Unknown | + + + | Ethnic Group | Unknown | + + + Author + + + | Author | [facility] | | | and Jose Enriqueana | + + + | Organization | [facility] | | | and Jose Enriqueana | + + + | Address | Unknown | + + + | Phone | Unavailable | + + + Support + + + + + | Name | Relationship | Address | Phone | + + + + + | Sharlene Lagunas | ECON | [address] | | | [place] | | [address], [place] | | | | | [address] | | + + + + + | Rickey Bui | ECON | [address] [place], [place] | | | | | [address] | | + + + + + Care Team Providers + +------+ + | Care Wood Calker Name | Role | Phone | + [...] Description | +--------+--------+ + + + | 06/06/ | Refill | JENNIE SIDDIQUI | Joel Moise | Medication Refill | | 2017 | | [facility] | MD [place]ch[facility] [address] [place] [address] | | | | | [facility] [address] | [facility] [address] | | | | | [place] [address] [place] | [place] [address] | | | | | [address] | [phone] | | | | | [phone] | | | +--------+--------+ + + + [...] SERVIN | | | | | | [id number] | | | | | | | | +--------+---------+ + + + documented as of this encounter Visit Diagnoses Not on filedocumented in this encounter"
--- OUTSIDE RECORDS SUMMARY | ~2019-10-21 | XMS | Encounter Summary ---
Demographics + + + | Address | [address] | | | [place] [address] | + + + | Home Phone | | + + + | Preferred Language | Unknown | + + + | Marital Status | | + + + | Bahai Affiliation | 1009 | + + + | Race | Unknown | + + + | Ethnic Group | Unknown | + + + Author + + + | Author | [facility] | | | and Jose Enriqueana | + + + | Organization | [facility] | | | and Jose Enriqueana | + + + | Address | Unknown | + + + | Phone | Unavailable | + + + Support + + + + + | Name | Relationship | Address | Phone | + + + + + | Sharlene Lagunas | ECON | [address] | | | [place] | | [address], [place] | | | | | [address] | | + + + + + | Rickey Bui | ECON | [address] [place], [place] | | | | | [address] | | + + + + + Care Team Providers + +------+ + | Care Scrum Coach Name | Role | Phone | + [...] | +--------+ + + + + | 11/18/ | Implant | JENNIE SIDDIQUI | Ila Vasquez, | Sinoatrial node | | 2015 | Monitor | [facility] | RN | dysfunction (HCC) | | | | HI[address] | | (Primary Dx); | | | | [place] [address] [place] | | Cardiac pacemaker in | | | | [address] | | situ | | | | [phone] | | | +--------+ + + + [...] SERVIN | | | | | | [address] | | | | | | | | +--------+---------+ + + + documented as of this encounter Procedures + +--------+ + + + | Procedure Name | Priori | Date/Time | Associated Diagnosis | Comments | | | ty | | | | + +--------+ + + + | DEVICE INTERROGATION | Routin | 01/04/2015 | Sinoatrial node | Results for this | | | e | 9:25 PM | dysfunction (HCC) | procedure are in the | | | | PDT | Cardiac pacemaker in | results section. | | | | | situ | | + +--------+ + + + documented in this encounter Results Device Interrogation (01/04/2015 9:25 PM PDT) + + + | Narrative | Performed At | + + + | I[facility] Baker | | | ANASTASIYA Vasquez 01/04/2015 21:25 PATIENT NAME: Prabhjot eLe | | | Hao : 1945: AGE: 68 y.o. Remote | | | Pacemaker Evaluation Report October 02, 2014 Reason for evaluation: | | | RoutineIndication for pacemaker: ICD-9-CM 1. Sinoatrial node | | | dysfunction (HCC) 427.81 Device Interrogation 2. Cardiac pacemaker in | | | situ V45.01 Device Interrogation Remotely captured device data was | | | reviewed for pacemaker parameters, battery status, percentage of | | | pacing and significant arrhythmias. Heart rate histograms were | | | evaluated for adequate heart rate response and any alerts reviewed. | | | Pacing lead impedances were reviewed for any significant changes. | | | Final pacing outputs and programming parameters were reviewed. | | | Settings Mode: AAIR<=>DDDR 75-130Atrial Output: 1.5V @ | | | 0.4msVentricular Output: 2V @ 0.4ms Data Presenting rhythm is atrial | | | fibrillation/flutter with LANDSCAPE FOREMAN. When not in AT/AF: AP 88% and LANDSCAPE FOREMAN 1.0%. | | | Mostly LANDSCAPE FOREMAN when in AT/AF. Heart rate histograms appear | | | appropriate. Battery status: satisfactory. Voltage: 2.79V. Estimated | | | remaining longevity: 11 years. Lead impedances appear within normal | | | limits.Events noted since 06/30/14: 886 MS/ATR, longest >96 hours, | | | 29.1%. On anticoagulation. Appears to be close to 100% AT/AF | | | since . On anticoagulation. Rates controlled.Device | | | function appears appropriate.Remote follow-up in 3 months. Report to | | | Team Jose Maria.Dr. Joel Moise MD has supervised and | | | interpreted this remote. | | | | | |Mode: AAIR<=>DDDR 75-130 | | |Atrial Output: 1.5V @ 0.4ms | | |Ventricular Output: 2V @ 0.4ms | | | | | |Data | | | | | |Presenting rhythm is atrial fibrillation/flutter with LANDSCAPE FOREMAN. When | | |not in AT/AF: AP 88% and LANDSCAPE FOREMAN 1.0%. Mostly LANDSCAPE FOREMAN when in AT/AF. | | |Heart rate histograms appear appropriate. Battery status: | | |satisfactory. Voltage: 2.79V. Estimated remaining longevity: 11 | | |years. Lead impedances appear within normal limits. | | |Events noted since 06/30/14: | | | 886 MS/ATR, longest >96 hours, 29.1%. On anticoagulation. | | |Appears to be close to 100% AT/AF since . On | | |anticoagulation. Rates controlled. | | |Device function appears appropriate. | | |Remote follow-up in 3 months. Report to Team Jose Maria. | | |Dr. Joel Moise MD has supervised and interpreted this | | |remote. | | + + + documented in this encounter Visit Diagnoses + + | Diagnosis | + + | Sinoatrial node dysfunction (HCC) - Primary Sinoatrial node dysfunction | + + | Cardiac pacemaker in situ | + + documented in this encounter"
--- OUTSIDE RECORDS SUMMARY | ~2019-10-21 | XMS | Encounter Summary ---
Demographics + + + | Address | [address] | | | [place] [address] | + + + | Home Phone | | + + + | Preferred Language | Unknown | + + + | Marital Status | | + + + | Advent Affiliation | 1009 | + + + | Race | Unknown | + + + | Ethnic Group | Unknown | + + + Author + + + | Author | [facility] | | | and Jose Enriqueana | + + + | Organization | [facility] | | | and Jose Enriqueana | + + + | Address | Unknown | + + + | Phone | Unavailable | + + + Support + + + + + | Name | Relationship | Address | Phone | + + + + + | Sharlene Lagunas | ECON | [address] | | | [place] | | [address], [place] | | | | | [address] | | + + + + + | Rickey Bui | ECON | [address] [place], [place] | | | | | [address] | | + + + + + Care Team Providers + +------+ + | Care Hot Braider Name | Role | Phone | + [...] 11/18/ | Implant | JENNIE SIDDIQUI | Beata Dorado, | Sinoatrial node | | 2016 | Monitor | [facility] | RN | dysfunction (HCC) | | | | HI[address] | | (Primary Dx); | | | | [address] | | Cardiac pacemaker in | | | | [address] | | situ | | | | [phone] | | | +--------+ + + + [...] | | | | | [place] | | | | | | [address] | | | | | | | | +--------+---------+ + + + documented as of this encounter Procedures + +--------+ + + + | Procedure Name | Priori | Date/Time | Associated Diagnosis | Comments | | | ty | | | | + +--------+ + + + | DEVICE | Routin | 11/19/2015 | Sinoatrial node | Results for this | | INTERROGATION- | e | 10:47 PM | dysfunction (HCC) | procedure are in the | | REMOTE | | PDT | Cardiac pacemaker in | results section. | | | | | situ | | + +--------+ + + + documented in this encounter Results Device Interrogation - Remote (11/19/2015 10:47 PM PDT) + + + | Narrative | Performed At | + + + | Beata Fernandez | [facility] | | ANASTASIYA Dorado 11/19/2015 22:47 PATIENT NAME: Prabhjot Lee | | | Hao : 1945: AGE: 69 y.o. Remote | | | Pacemaker Evaluation Report October 26, 2015 Reason for evaluation: | | | [...] | | were reviewed. Settings Mode: VVIR, 70-(130)Ventricular Output: 2.0V @ | | | 0.4ms (Adaptive) Data Presenting rhythm is atrial flutter with VS/EMPLOYMENT MANAGER | | | ~83 bpm. EMPLOYMENT MANAGER 63.9%. Heart rate histogram appears appropriate. | | | Battery status: satisfactory. Voltage: 2.79 V. Estimated remaining | | | longevity: 11.5 years. Lead impedance appears within normal | | | limits.Events noted since 06/03/15: 4 VHR (seen on prior remote), | | | longest 1:44 minutes on 06/14/15. Atrial EGMs only available and show | | | VS falling on every other flutter wave, possibly RVR.Device function | | | appears appropriate.Remote follow-up in 3 months.Supervising and | | | interpreting physician for this remote,Dr. Joel Moise MD | | |impedances were reviewed for any significant changes. Final | | |pacing outputs and programming parameters were reviewed. | | | | | |Settings | | | | | |Mode: VVIR, 70-(130) | | |Ventricular Output: 2.0V @ 0.4ms (Adaptive) | | | | | |Data | | | | | |Presenting rhythm is atrial flutter with VS/EMPLOYMENT MANAGER ~83 bpm. EMPLOYMENT MANAGER | | |63.9%. Heart rate histogram appears appropriate. | | |Battery status: satisfactory. Voltage: 2.79 V. Estimated | | |remaining longevity: 11.5 years. Lead impedance appears within | | |normal limits. | | |Events noted since 06/03/15: | | | 4 VHR (seen on prior remote), longest 1:44 minutes on 06/14/15. | | |Atrial EGMs only available and show VS falling on every other | | |flutter wave, possibly RVR. | | |Device function [...]
--- OUTSIDE RECORDS SUMMARY | ~2019-10-21 | XMS | Encounter Summary ---
Demographics + + + | Address | [address] | | | [place] [address] | + + + | Home Phone | | + + + | Preferred Language | Unknown | + + + | Marital Status | | + + + | Uatsdin Affiliation | 1009 | + + + | Race | Unknown | + + + | Ethnic Group | Unknown | + + + Author + + + | Author | [facility] | | | and Jose Enriqueana | + + + | Organization | [facility] | [...] [address] | | | [address] | | [address], [place] | | | | | [address] | | + + + + + | Rickey Bui | ECON | [address] [place], [place] | | | | | [address] | | + + + + + Care Team Providers + +------+ + | Care Laundry Route Driver Name | Role | Phone | + +------+ + | Tayo Robles DO | PCP | | + +------+ + Encounter Details +--------+ + + + + | Date | Type | Department | Care Team | Description | +--------+ + + + + | 04/30/ | Anesthesia | [facility] | Carmen, | | | 2013 | Event | [facility] | Pito, DO [address] | | | [address] [place], | | | | | [address] | [place] | | | | | [place] | [phone] | | | | | [address] | | | | | | [phone] | Anderson Flores, | | | | | | DO [address] | | | | | | [place], [place] | | | | | | [phone] | | | | | | | | +--------+ + + + + Anesthesia Record + + + + + | Procedure Name | Responsible | Anesthesia Start | Anesthesia Stop Time | | | Anesthesiologist | Time | | + + + + + | A-FIB ABLATION W/IVETTE | Pito Morales, | 04/30/14 1317 | 04/30/14 1859 | | AND SHAYNA W/ | DO | | | | RANI (N/A | | | | | Groin) | | | | + + + + + +----+---+ + + | Da | T | Event | Comment | | te | i | | | | | m | | | | | e | | | +----+---+ + + | 12 | 0 | | | | /1 | 8 | | | | 0/ | 5 | | | | 20 | 6 | | | | 14 | | | | +----+---+ + + | | 1 | An Checkout | Pre-use anesthesia machine/equipment checkout. | | | 2 | | | | | 5 | | | | | 3 | | | +----+---+ + + | | 1 | An Start | Reassessment prior to anesthesia induction/procedure. | | | 3 | | | | | 1 | | | | | 7 | | | +----+---+ + + | | 1 | Preoxygenat | | | | 3 | ed | | | | 3 | | | | | 8 | | | +----+---+ + + | | 1 | An | | | | 3 | Induction | | | | 3 | | | | | 8 | | | +----+---+ + + | | 1 | An | | | | 3 | Intubation | | | | 3 | | | | | 8 | | | +----+---+ + + | | 1 | Antibiotic | | | | 3 | Given | | | | 4 | | | | | 1 | | | +----+---+ + + | | 1 | Quick Note | 6.5 ETT placed in esophagus under videoscope observation and temp | | | 3 | | probe placed through ETT per request by surgeon. | | | 4 | | | | | 7 | | | +----+---+ + + | | 1 | [place] | | | | 4 | 43-degrees | | | | 1 | | | | | 7 | | | +----+---+ + + | | 1 | Quick Note | cardioverted | | | 7 | | | | | 5 | | | | | 7 | | | +----+---+ + + | | 1 | Quick Note | Protamine 40mg given slowly | | | 8 | | | | | 0 | | | | | 5 | | | +----+---+ + + | | 1 | [place] off | | | | 8 | | | | | 3 | | | | | 3 | | | +----+---+ + + | | 1 | AN No | TOF 4/4 with sustained tetanus. | | | 8 | Residual | | | | 3 | NMB | | | | 4 | | | +----+---+ + + | | 1 | Breathing | | | | 8 | Spontaneous | | | | 3 | ly | | | | 4 | | | +----+---+ + + | | 1 | Oropharynx | | | | 8 | Suctioned | | | | 3 | | | | | 9 | | | +----+---+ + + | | 1 | Extubated | | | | 8 | Awake | | | | 4 | | | | | 0 | | | +----+---+ + + | | 1 | Quick Note | Pt breathing spont, tv greater than 600, resp rate 13 per min, | | | 8 | | extubated to 6L mask. To PACU | | | 4 | | | | | 0 | | | +----+---+ + + | | 1 | An Stop | Patient handed off to recovery nurse. Pt remains drowsy, | | | 8 | | breathing spont and maintaining airway post extubation, VSS, | | | 5 | | report given Electronically signed by: Mike Mcdonough CRNA at | | | 9 | | 04/30/2014 18:59 | +----+---+ + + +------+ | Meds | +------+ + + + | Name | Total | + + + | fentaNYL (Intravenous) | 250 mcg | + + + | propofol | 220 mg | + + + | rocuronium | 50 mg | + + + | ePHEDrine | 10 mg | + + + | phenylephrine | 100 mcg | + + + | phenylephrine | 13,160 mcg | + + + | ondansetron | 4 mg | + + + | dexamethasone | 10 mg | + + + | ceFAZolin | 2 g | + + + | heparin | 12,000 Units | + + + | heparin | 6,808.33 Units | + + + | protamine injection | 40 mg | + + + | furosemide | 20 mg | + + + | lactated ringers (LR) infusion | 1,300 mL | + + + + + | Name | + + | N2O Flow Rate (L/Min) | + + | O2 Flow Rate (L/Min) | + + | Insp O2 | + + | Exp N2O | + + | Exp SEV | + + | Air Flow Rate (L/Min) | + + + + | No blood administrations on file. | + + +--------+ + + + | Type | Details | Placement | Removal | +--------+ + + + | [READ | 04/30/14; 0843; Hematology, | 04/30/14 0843 by | 05/01/14 0030 by | | ONLY] | Chemistry, Coagulation; requested | Neha Billings RN | Lissett Barreto, | | | by patient; site slightly sore.; | | RN | | Perip | 05/01/14; 0030 | | | | eral | | | | | IV - | | | | | Single | | | | | Lumen | | | | | | | | | +--------+ + + + | Airway | Placement Date: 04/30/14; | 04/30/141337 by | 04/30/141839 by | | | Placement Time: 1337; Mask | Mike Mcdonough CRNA | Mike Mcdonough CRNA | | | Ventilation: EZ; Airway Grade: I; | | | | | Successful Technique: Mac; | | | | | Laryngoscope Blade Size: 4; | | | | | Attempts: 1; Airway Type: | | | | | endotracheal, oral, cuffed; Size: | | | | | 8; Position: Right; Airway Tube | | | | | Secured At: 0.24 m (9.45"); Tube | | | | | Reference Point: lip, secure and | | | | | patent; Trauma: soft tissue | | | | | (pinched lip); Other Equipment: | | | | | stylette; Placement Check: | | | | | verified by capnography, verified | | | | | by auscultation; Placed By: | | | | | HEAD BOYS GOLF COACH; Removal Date: 04/30/14; | | | | | Removal Time: 1840 | | | +--------+ + + + | [READ | 08/13/18 (Removed/Completed by | 04/30/14 1348 by | 08/13/18 1643 by | | ONLY] | utility); 1643 (Removed/Completed | | User Epic | | | by utility) | | | | Periph | | | | | eral | | | | | IV - | | | | | Single | | | | | Lumen | | | | | | | | | +--------+ + + + | Urethr | 04/30/14; 1352; indicated due to | 04/30/14 1352 by | 04/30/145 by | | al | specific surgical procedure, | Alis Nixon RN | Lissett Barreto, | | Laura | indicated for accurate | | RN | | er | measurement of urinary output in | | | | | critically ill patients; | | | | | 04/30/14; 2245 | | | +--------+ + + + | Venous | 04/30/14; 1404; 8 Fr.; Right; | 04/30/14 1404 by | 04/30/141821 by | | | Femoral; No; Injectable; Yes; | Estela Spencer, | Maritza Bolivar, | | Sheath | 04/30/14; 1821; Per protocol; No | Technologist | Technologist | | | complications | | | +--------+ + + + | Venous | 04/30/14; 1405; 8 Fr.; Right; | 04/30/14 140 by | 04/30/141821 by | | | Femoral; 04/30/14; 1821; Per | Estela Spencer, | Maritza Bolivar, | | Sheath | protocol; No complications | Technologist | Technologist | +--------+ + + + | Venous | 04/30/14; 1405; 10 Fr.; Left; | 04/30/14 1405 by | 04/30/141822 by | | | Femoral; No; Injectable; | Estela Spencer, | Maritza Bolivar, | | Sheath | 04/30/14; 1822; Per protocol; No | Technologist | Technologist | | | complications | | | +--------+ + + + | Venous | 04/30/14; 1405; 7 Fr.; Left; | 04/30/141404 by | 04/30/141822 by | | | Femoral; 04/30/14; 1822; Per | Estela Spencer, | Maritza Bolivar, | | Sheath | protocol; No complications | Technologist | Technologist | +--------+ + + + documented in this encounter Social History + +-------+ +--------+------+ | Tobacco [...] SERVIN | | | | | | [address] | | | | | | | | +--------+---------+ + + + documented as of this encounter Visit Diagnoses Not on filedocumented in this encounter Administered Medications + +--------+ +------+------+------+ | Medication Order | MAR | Action | Dose | Rate | Site | | | Action | Date | | | | + +--------+ +------+------+------+ | ceFAZolin (ANCEF, KEFZOL) | Given | 04/30/20 | 2 g | | | | injection Intravenous, PRN, | | 14 1:41 | | | | | Starting 04/30/14 at 1341, | | PM PST | | | | | Anesthesia Intra-op | | | | | | + +--------+ +------+------+------+ +---+---+ | | | +---+---+ + +-------+ +-------+---+---+ | dexamethasone (DECADRON) 10 | Given | 04/30/20 | 10 mg | | | | mg/mL injection Intravenous, | | 14 2:03 | | | | | PRN, Starting 04/30/14 at | | PM PST | | | | | 1403, Anesthesia Intra-op | | | | | | + +-------+ +-------+---+---+ +---+---+ | | | +---+---+ + +-------+ +-------+---+---+ | ePHEDrine 50 mg/mL injection | Given | 04/30/20 | 10 mg | | | | Intravenous, PRN, Starting Wed | | 14 2:24 | | | | | 04/30/14 at 1424, Anesthesia | | PM PST | | | | | Intra-op | | | | | | + +-------+ +-------+---+---+ +---+---+ | | | +---+---+ + +-------+ +--------+---+---+ | fentaNYL injection | Given | 04/30/20 | 50 mcg | | | | Intravenous, PRN, Pain, Starting | | 14 5:54 | | | | | 04/30/14 at 1338, Anesthesia | | PM PST | | | | | Intra-op | | | | | | + +-------+ +--------+---+---+ +-------+ +--------+---+---+ | Given | 04/30/20 | 50 mcg | | | | | 14 4:57 | | | | | | PM PST | | | | +-------+ +--------+---+---+ | Given | 04/30/20 | 50 mcg | | | | | 14 2:55 | | | | | | PM PST | | | | +-------+ +--------+---+---+ +---+---+ | | | +---+---+ + +-------+ +-------+---+---+ | furosemide (LASIX) injection | Given | 04/30/20 | 20 mg | | | | Intravenous, PRN, Edema, Starting | | 14 6:06 | | | | | 04/30/14 at 1806, Anesthesia | | PM PST | | | | | Intra-op | | | | | | + +-------+ +-------+---+---+ +---+---+ | | | +---+---+ + + + + +---------+---+ | heparin 1,000 units/mL | Rate/Dos | 04/30/20 | 2,000 | 2 mL/hr | | | injection Intravenous, | e Change | 14 3:57 | Units/hr | | | | CONTINUOUS PRN, Starting Wed | | PM PST | | | | | 04/30/14 at 1413, Anesthesia | | | | | | | Intra-op | | | | | | + + + + +---------+---+ + + + +-------+---+ | Rate/Dose Change | 04/30/20 | 1,900 | 1.9 | | | | 14 3:11 | Units/hr | mL/hr | | | | PM PST | | | | + + + +-------+---+ | Rate/Dose Change | 04/30/20 | 1,800 | 1.8 | | | | 14 2:50 | Units/hr | mL/hr | | | | PM PST | | | | + + + +-------+---+ +---+---+ | | | +---+---+ + +-------+ +--------+---+---+ | heparin 1,000 units/mL | Given | 04/30/20 | 2,000 | | | | injection Intravenous, PRN, | | 14 3:57 | Units | | | | Starting 04/30/14 at 1411, | | PM PST | | | | | Anesthesia Intra-op | | | | | | + +-------+ +--------+---+---+ +-------+ +--------+---+---+ | Given | 04/30/20 | 3,000 | | | | | 14 2:31 | Units | | | | | PM PST | | | | +-------+ +--------+---+---+ | Given | 12/10/20 | 7,000 | | | | | 14 2:11 | Units | | | | | PM PST | | | | +-------+ +--------+---+---+ +---+---+ | | | +---+---+ + +---------+ +----+---+---+ | lactated ringers (LR) infusion | New Bag | 04/30/20 | mL | | | | at 10-100 mL/hr, Intravenous, | | 14 2:42 | | | | | CONTINUOUS, Starting 04/30/14 | | PM PST | | | | | at 0845, TKO., Pre-op | | | | | | + +---------+ +----+---+---+ +---------+ +----+---+---+ | New Bag | 04/30/20 | mL | | | | | 14 1:17 | | | | | | PM PST | | | | +---------+ +----+---+---+ +---+---+ | | | +---+---+ + +-------+ +------+---+---+ | ondansetron (ZOFRAN) injection | Given | 04/30/20 | 4 mg | | | | Intravenous, PRN, Nausea, | | 14 6:07 | | | | | Vomiting, Starting Mon04/30/14 | | PM PST | | | | | at 1807, Anesthesia Intra-op | | | | | | + +-------+ +------+---+---+ +---+---+ | | | +---+---+ + +-------+ +--------+---+---+ | phenylephrine (ZOEY-SYNEPHRINE) | Given | 04/30/20 | 50 mcg | | | | 10 mg/mL injection Intravenous, | | 14 2:32 | | | | | PRN, Starting Mon04/30/14 at | | PM PST | | | | | 1400, Anesthesia Intra-op | | | | | | + +-------+ +--------+---+---+ +-------+ +--------+---+---+ | Given | 04/30/20 | 50 mcg | | | | | 14 2:00 | | | | | | PM PST | | | | +-------+ +--------+---+---+ +---+---+ | | | +---+---+ + + + +---------+-------+---+ | phenylephrine (ZOEY-SYNEPHRINE) | Rate/Dos | 04/30/20 | 50 | 0.3 | | | 10 mg/mL injection Intravenous, | e Change | 14 3:11 | mcg/min | mL/hr | | | CONTINUOUS PRN, Starting Wed | | PM PST | | | | | 04/30/14 at 1422, Anesthesia | | | | | | | Intra-op | | | | | | + + + +---------+-------+---+ + + +---------+-------+---+ | Rate/Dose Change | 04/30/20 | 40 | 0.2 | | | | 14 2:42 | mcg/min | mL/hr | | | | PM PST | | | | + + +---------+-------+---+ | Rate/Dose Change | 04/30/20 | 35 | 0.2 | | | | 14 2:34 | mcg/min | mL/hr | | | | PM PST | | | | + + +---------+-------+---+ +---+---+ | | | +---+---+ + +-------+ +-------+---+---+ | propofol (DIPRIVAN) injection | Given | 20 | 20 mg | | | | Intravenous, PRN, Starting Wed | | 14 2:55 | | | | | 04/30/14 at 1338, Anesthesia | | PM PST | | | | | Intra-op | | | | | | + +-------+ +-------+---+---+ +-------+ +--------+---+---+ | Given | 04/30/20 | 200 mg | | | | | 14 1:38 | | | | | | PM PST | | | | +-------+ +--------+---+---+ +---+---+ | | | +---+---+ + +-------+ +-------+---+---+ | protamine injection | Given | 20 | 40 mg | | | | Intravenous, PRN, Starting Wed | | 14 6:05 | | | | | 04/30/14 at 1805, Anesthesia | | PM PST | | | | | Intra-op | | | | | | + +-------+ +-------+---+---+ +---+---+ | | | +---+---+ + +-------+ +-------+---+---+ | rocuronium (ZEMURON) injection | Given | 04/30/20 | 50 mg | | | | Intravenous, PRN, Ventilator | | 14 1:38 | | | | | Dyssynchrony, Starting Wed | | PM PST | | | | | 04/30/14 at 1338, Anesthesia | | | | | | | Intra-op | | | | | | + +-------+ +-------+---+---+ +---+---+ | | | +---+---+ documented in this encounter
--- OUTSIDE RECORDS SUMMARY | ~2019-10-21 | XMS | Encounter Summary ---
Demographics + + + | Address | [address] | | | [place] [address] | + + + | Home Phone | | + + + | Preferred Language | Unknown | + + + | Marital Status | | + + + | Taoism Affiliation | 1009 | + + + | Race | Unknown | + + + | Ethnic Group | Unknown | + + + Author + + + | Author | [facility] | | | and Jose Enriqueana | + + + | Organization | [facility] | | | and Jose Enriqueana | + + + | Address | Unknown | + + + | Phone | Unavailable | + + + Support + + + + + | Name | Relationship | Address | Phone | + + + + + | Shralene Lgaunas | ECON | [address] | | | [place] | | [place], [place] | | | | | [address] | | + + + + + | Rickey Bui | ECON | [address] [place], [place] | | | | | [address] | | + + + + + Care Team Providers + +------+ + | Care Radiation Oncology Manager Name | Role | Phone | [...] | (Primary Dx); | | | | [place] [address] [place] | | Cardiac pacemaker in | | | | [address] | | situ | | | | [phone] | | | +--------+ + + + [...] SERVIN | | | | | | [address] | | | | | | | [...] ANASTASIYA Vasquez 01/04/2015 21:25 PATIENT NAME: Prabhjot Lee | | | [...] is atrial | | | fibrillation/flutter with RN RESOURCE NURSE. When not in AT/AF: AP 88% and RN RESOURCE NURSE 1.0%. | | | Mostly RN RESOURCE NURSE when in AT/AF. Heart rate histograms appear [...] | |Presenting rhythm is atrial fibrillation/flutter with RN RESOURCE NURSE. When | | |not in AT/AF: AP 88% and RN RESOURCE NURSE 1.0%. Mostly RN RESOURCE NURSE when in AT/AF. | | |Heart rate [...]
--- OUTSIDE RECORDS SUMMARY | ~2019-10-21 | XMS | Encounter Summary ---
Demographics + + + | Address | [address] | | | [place] [address] | + + + | Home Phone | | + + + | Preferred Language | Unknown | + + + | Marital Status | | + + + | Rastafarian Affiliation | 1009 | + + + | Race | Unknown | + + + | Ethnic Group | Unknown | + + + Author + + + | Author | [facility] | | | and Jose Enriqueana | + + + | Organization | [facility] | | | and Jose Enriqueana | + + + | Address | Unknown | + + + | Phone | Unavailable | + + + Support + + + + + | Name | Relationship | Address | Phone | + + + + + | Sharlene Lagunas | ECON | [address] | | | [place] | | [address], [place] | | | | | [address] | | + + + + + | Rickey Bui | ECON | [address] [place], [place] | | | | | [address] | | + + + + + Care Team Providers + +------+ + | Care Plastic Outfitter Name | Role | Phone | + +------+ + | Tayo Robles DO | PCP | | + +------+ + Reason for Visit + + + | Reason | Comments | + + + | Medical Clearance | | + + + Encounter Details +--------+ + + + + | Date | Type | Department | Care Team | Description | +--------+ + + + + | 04/09/ | Telephone | JENNIE SIDDIQUI | Joel Moise | Medical Clearance | | 2015 | | [facility]OLOGY [facility] | MD Conchis [address] [place] [address] | | | | | [address] | [place] [address] | | | | | [place] [address] [place], [place] | [place] [address] | | | | | [address] | [phone] | | | | | [phone] | | | +--------+ + + + [...] SERVIN | | | | | | [id number] | | | | | | | | +--------+---------+ + + + documented as of this encounter Visit Diagnoses Not on filedocumented in this encounter"
--- OUTSIDE RECORDS SUMMARY | ~2019-10-21 | XMS | Encounter Summary ---
Demographics + + + | Address | [address] | | | [place] [address] | + + + | Home Phone | | + + + | Preferred Language | Unknown | + + + | Marital Status | | + + + | Yazidi Affiliation | 1009 | + + + | Race | Unknown | + + + | Ethnic Group | Unknown | + + + Author + + + | Author | [facility] | | | and Jose Enriqueana | + + + | Organization | [facility] | | | [...] [address] | | | [place] | | [place], [place] | | | | | [address] | | + + + + + | Rickey Bui | ECON | [address] [place], [place] | | | | | [address] | | + + + + + Care Team Providers + +------+ + | Care Supervisor Pullet Farm Name | Role | Phone | + +------+ + PCP | Unavailable | + +------+ + Encounter Details +--------+ + + + + | Date | Type | Department | Care Team | Description | +--------+ + + + + | 01/16/ | Hospital | [facility] | | | | 1996 | Encounter | MED CTR ICU [address] | | | | | | [place], | | | | | | [place] [address] | | | | | | [phone] | | | +--------+ + + + [...] SERVIN | | | | | | [address] | | | | | | | | +--------+---------+ + + + documented as of this encounter Visit Diagnoses Not on filedocumented in this encounter"
--- OUTSIDE RECORDS SUMMARY | ~2019-10-21 | XMS | Encounter Summary ---
Demographics + + + | Address | [address] | | | [place] [address] | + + + | Home Phone | | + + + | Preferred Language | Unknown | + + + | Marital Status | | + + + | Church Affiliation | 1009 | + + + | Race | Unknown | + + + | Ethnic Group | Unknown | + + + Author + + + | Author | [facility] | | | and Jose Enriqueana | + + + | Organization | [facility] | | | and Jose Enriqueana | + + + | Address | Unknown | + + + | Phone | Unavailable | + + + Support + + + + + | Name | Relationship | Address | Phone | + + + + + | Sharlene Lagunas | ECON | [address] | | | [place] | | [address], [place] | | | | | [address] | | + + + + + | Rickey Bui | ECON | [address] [place], [place] | | | | | [address] | | + + + + + Care Team Providers + +------+ + | Care Leather Softener Name | Role | Phone | + [...] + + | 09/08/ | Office | [facility] | Rickey Zaragoza PA | ABAD on CPAP (Primary | | 2017 | Visit | SLEEP DISORDER [address] | [address] | Dx) | | | | [address] | [place] | | | | | [place] [id number] | [id number] | | | | | [phone] | | | +--------+---------+ + + + [...] 10 Mask type: full face mask DME: [facility] in [place] pressure: 6-16 cm Median: 7.1 cm 95%: [...] Exam Assessment: Problem #1: OBSTRUCTIVE SLEEP APNEA ([id number]) This is controlled with CPAP. His CPAP [...] appro priate paperwork. Fifteen minutes were spent nayo-kc-edom, with the majority of time spent in [...] 2020 | Visit | | [address] | | | | | | [place] | | | | | | [id number] | | | | | | | | +--------+---------+ + + + documented as of this encounter Visit Diagnoses + + | Diagnosis | + + | ABAD on CPAP - Primary Obstructive sleep apnea (adult) (pediatric) | + + documented in this encounter"
--- OUTSIDE RECORDS SUMMARY | ~2019-10-21 | XMS | Encounter Summary ---
Demographics + + + | Address | [address] | | | [place] [address] | + + + | Home Phone | | + + + | Preferred Language | Unknown | + + + | Marital Status | | + + + | Scientologist Affiliation | 1009 | + + + | Race | Unknown | + + + | Ethnic Group | Unknown | + + + Author + + + | Author | [facility] | | | and Jose Enriqueana | + + + | Organization | [facility] | | | and Jose Enriqueana | + + + | Address | Unknown | + + + | Phone | Unavailable | + + + Support + + + + + | Name | Relationship | Address | Phone | + + + + + | Sharlene Lagunas | ECON | [address] | | | [place] | | [place], [place] | | | | | [address] | | + + + + + | Rickey Castaneda | ECON | [address] [place], [place] | | | | | [address] | | + + + + + Care Team Providers + +------+ + | Care Lehr Loader Name | Role | Phone | + [...] Closed | | Radiology | Diagnoses | [place], | [facility] | | | | | Atrial | MD Ric[address] | [address] | | | | | fibrillation | [address] | [place], [place] | | | | | (HCC) | AVE [address]ITE | [address] | | | | | Procedures | [address] | Phone: | | | | | ECHO | [place], [place] | [phone] | | | | | Transesophag | [address] | Fax: | | | | | eal (SHAYNA) | Phone: | [phone] | | | | | | [phone] | | | | | | | Fax: | | | | | | | [phone] | | +--------+--------+ + + + + Reason for Visit Diagnostic/Screening (Routine) +--------+--------+ + + + + | Status | Reason | Specialty | Diagnoses / | Referred By | Referred To | | | | | Procedures | Contact | Contact | +--------+--------+ + + + + | Closed | | Radiology | Diagnoses | [place], | [facility] | | | | | Atrial | MD Rickey [address] | [address] | | | | | fibrillation | | [place], [place] | | | | | (HCC) | AVE SUITE | [address] | | | | | Procedures | [address] | Phone: | | | | | ECHO | [place] | [phone] | | | | | Transesophag | [address] | Fax: | | | | | eal (SHAYNA) | Phone: | [phone] | | | | | | [phone] | | | | | | | Fax: | | | | | | | [phone] | | +--------+--------+ + + + + Encounter Details +--------+ + + + + | Date | Type | Department | Care Team | Description | +--------+ + + + + | 04/30/ | Hospital | [facility] | Rickey Galvan MD | Atrial fibrillation | | 2014 | Encounter | [facility] | [address] | ([facility]) | | | | [facility] | [address] [place], | | | | | [facility] [address] | [place] [address] | | | | | [address] [place] | [phone] | | | | | [address] | | | | | | [phone] | | | +--------+ + + + [...] + + documented as of this encounter Medications at Time of Discharge + + + +---------+ + + | Medication | Sig | Dispensed | Refills | Start | End Date | | | | | | Date | | + + + +---------+ + + | anastrozole | Take 0.25 tablets by | | 0 | 02/07/20 | | | (ARIMIDEX) 1 mg | mouth Once a week. | | | 14 | | | tablet | MONDAYS | | | | | + + + +---------+ + + | Cholecalciferol | Take 5,000 Units by | | 0 | 02/03/20 | | | ([employer] VITAMIN D) 2000 | mouth Daily. | | | 12 | | | UNITS CAPS | | | | | | + + + +---------+ + + | DHEA 25 MG CAPS | Take 25 mg by mouth | | 0 | 02/03/20 | | | | Daily. | | | 12 | | + + + +---------+ + + | fish oil 1,000 mg | Take 1,000 mg by | | 0 | | | | capsule | mouth Daily. | | | | | + + + +---------+ + + | Garlic 1000 MG | Take 1,000 mg by | | 0 | 02/03/20 | | | CAPS | mouth Daily. | | | 12 | | + + + +---------+ + + | L-Methylfolate 15 | Take 15 mg by mouth | | 0 | 01/18/20 | | | MG TABS | Daily. | | | 14 | | + + + +---------+ + + | tamsulosin | Take 0.4 mg by mouth | | 0 | | | | (FLOMAX) 0.4 mg CAPS | daily (after | | | | | | | breakfast). | | | | | + + + +---------+ + + | TAURINE PO | Take 1,500 mg by | | 0 | 02/03/20 | | | | mouth 2 times daily. | | | 12 | | | | Six caps daily; | | | | | + + + +---------+ + + | warfarin | Take 7.5 mg by mouth | | 0 | 02/03/20 | | | (COUMADIN) 7.5 mg | See Admin | | | 12 | | | tablet | Instructions. As | | | | | | | directed by PCP | | | | | + + + +---------+ + + | amiodarone | Take 1 tablet by | 60 | 3 | 05/01/20 | | | (PACERONE) 200 mg | mouth Daily. | tablet | | 14 | 5 | | tablet | | | | | | + + + +---------+ + + | clonidine | TAKE 1 TABLET TWICE | 180 | 2 | 10/26/19 | | | (CATAPRES) 0.2 MG | A DAY | tablet | | 14 | 5 | | tabletIndications: | | | | | | | Hypertension | | | | | | + + + +---------+ + + | Coenzyme Q10 (EQL | Take 200 mg by mouth | | 0 | | | | COQ10) 200 MG CAPS | Daily. | | | | 7 | + + + +---------+ + + | colchicine 0.6 mg | Take 1 tablet by | 30 | 0 | 05/01/20 | | | tablet | mouth Daily. | tablet | | 14 | 5 | + + + +---------+ + + | Cyanocobalamin | Inject as directed | | 0 | | | | 1000 MCG/ML KIT | Every 3 days. | | | | 6 | + + + +---------+ + + | DIGOX 250 MCG | TAKE 1 TABLET DAILY | 90 | 1 | 12/03/19 | | | tablet | | tablet | | 14 | 4 | + + + +---------+ + + | DARINEL PEOPLES PO | Take 250 mg by mouth | | 0 | | | | | nightly. | | | | 5 | + + + +---------+ + + | ketoconazole | | | 0 | 04/27/20 | | | (NIZORAL) 2% shampoo | | | | 14 | 5 | + + + +---------+ + + | magnesium sulfate | Twice a week. Monday | | 0 | 01/14/20 | | | 500 mg/mL injection | AND | | | 14 | 8 | | | directed | | | | | + + + +---------+ + + | Magnesium-Zinc | Take 1 tablet by | | 0 | | | | (MAGNESIUM-CHELATED | mouth Daily. | | | | 5 | | ZINC) 133.33-5 MG | | | | | | | TABS | | | | | | + + + +---------+ + + | | Take 1 mg by mouth | | 0 | | | | Melatonin-Pyridoxine | nightly. | | | | 6 | | (MELATIN) 3-1 MG | | | | | | | TABS | | | | | | + + + +---------+ + + | metoprolol | Take 50 mg by mouth | | 0 | 01/07/20 | | | succinate | 2 times daily. | | | 14 | 5 | | (TOPROL-XL) 50 mg 24 | | | | | | | hr tablet | | | | | | + + + +---------+ + + | NADH Disodium POWD | 20 mg by Does not | | 0 | | | | | apply route Daily. | | | | 5 | + + + +---------+ + + | non-formulary | prevegan 10 mg | | 0 | | | | medication | 1 capsule daily | | | | 5 | + + + +---------+ + + | omeprazole | Take 1 capsule by | 30 | 0 | 05/01/20 | | | (PRILOSEC) 20 mg | mouth every morning | capsule | | 14 | 5 | | capsule | (before breakfast). | | | | | + + + +---------+ + + | sotalol AF | Take 1 tablet by | 60 | 3 | 05/01/20 | | | (BETAPACE AF) 80 mg | mouth every 12 | tablet | | 14 | 4 | | tablet | hours. | | | | | + + + +---------+ + + | SYNTHROID 50 MCG | Take 1 tablet by | | 0 | 02/04/20 | | | tablet | mouth Daily. | | | 14 | 9 | + + + +---------+ + + | Testosterone | Twice a week. | | 0 | 02/03/20 | | | Cypionate | | | | 12 | 6 | | (DEPO-TESTOSTERONE | | | | | | | IM) | | | | | | + + + +---------+ + + | thyroid (ARMOUR | Take 60 mg by mouth. | | 0 | 02/03/20 | | | THYROID) 60 MG | With 15 mg tab | | | 12 | 8 | | tablet | | | | | | + + + +---------+ + + | UNABLE TO FIND | Take 25 mg by mouth | | 0 | | | | | Daily. Med Name: | | | | 6 | | | IdODRIAL | | | | | + + + +---------+ + + | UNCODED MEDICATION | Diagnosis: | 1 | 0 | 12/28/19 | | | | Obstructive Sleep | Device | | 13 | 7 | | | ApneaICD-9: | | | | | | | 327.23Length of | | | | | | | Need: 99 Months | | | | | + + + +---------+ + + documented as of this encounter [...] SERVIN | | | | | | [id number] | | | | | | | | +--------+---------+ + + + documented as of this encounter Procedures + +--------+ + + + | Procedure Name | Priori | Date/Time | Associated Diagnosis | Comments | | | ty | | | | + +--------+ + + + | ECHO TRANSESOPHAGEAL | Routin | 04/30/2014 | Atrial | Results for this | | (SHAYNA) | e | 3:50 PM | fibrillation (HCC) | procedure are in the | | | | PST | | results section. | + +--------+ + + + documented in this encounter Results ECHO Transesophageal (SHAYNA) (04/30/2014 3:50 PM PST) + + | Specimen | + + | | + + + + --+ | Narrative | Performed At | + + --+ | | [facility] | | | LAB | | Transesophageal | | | Echo Report Name: | | | PRABHJOT CASTANEDA Date: 04/30/2014MRN: [id number] | | | [facility] POOLDOB: 1945 | | | Age: 68 yrs | | | Gender: MaleHeight: 70 in Weight: | | | 229 lb BSA: 2.2 m2 | | | HR: 70 | | | Rhythm: PacedHistory: HTN, AVR, Obstructive sleep | | | apnea, 02/27/2012 Pacemaker, AsthmaReason For Study: A fib; Eval for | | | atrial thrombus pre ablation AUC 112 INTERPRETATION SUMMARY:A 2D | | | transesophageal echocardiogram with color flow Doppler was performed. | | | fibrillation transesophageal echocardiogram to evaluate for | | | leftatrial thrombus. Quality was satisfactory. The patient was post | | | atrial appendage resection.No thrombus was identified in the left | | | atrium. Left ventricular functionappeared normal. There was mild to | | | moderate mitral regurgitation present. Procedure Notes:The patient was | | | intubated and general anesthesia administered by theAnesthesiology | | | Dept staff. Normal monitoring of the patient's bloodpressure, rhythm | | | and oxygen saturation was performed. The transesophagealecho probe was | | | placed without difficulty into the esophagus and a 2D/colorDoppler | | | SHAYNA exam was carried out. Left Ventricle:The left ventricle is normal | | | in size. There is normal left ventricularwall thickness. The left | | | ventricular systolic function is within normallimits. No regional wall | | | motion abnormalities are noted. Right Ventricle:The right ventricle | | | is normal in size and function. The right ventricularwall motion is | | | normal. Atria:No obvious septal defect is seen with color Doppler. The | | | left and rightatrial chambers are both normal in size. Mitral | | | Valve:The mitral valve appears normal in structure and function. There | | | is mildto moderate mitral regurgitation. The mitral regurgitant jet | | | is centrallydirected into the left atrium. Tricuspid Valve:The | | | tricuspid valve leaflets are thin and pliable. There is mild | | | tricuspidregurgitation. Aortic Valve:No aortic insufficiency is | | | present. There is a bioprosthetic aortic valve. Pulmonic Valve:The | | | pulmonic valve appears normal in structure and function. There is | | | nopulmonic valvular insufficiency. Vessels:The aortic root is normal | | | size. Other:There is no pericardial effusion. Interpreting Physician: | | | Luis Rm MDelectronically signed on 04/30/2014 05:55 | | | PMOrdering Physician: Rickey Galvan MDEchocardiographer: Zakia Cifuentes | | | [id number]: | | |No obvious septal defect is seen with color Doppler. The left and right | | |atrial chambers are both normal in size. | | | | | |Mitral Valve: | | |The mitral valve appears normal in structure and function. There is mild | | |to moderate mitral regurgitation. The mitral regurgitant jet is centrally | | |directed into the left atrium. | | | | | |Tricuspid Valve: | | |The tricuspid valve leaflets are thin and pliable. There is mild tricuspid | | |regurgitation. | | | | | |Aortic Valve: | | |No aortic insufficiency is present. There is a bioprosthetic aortic valve. | | | | | |Pulmonic Valve: | | |The pulmonic valve appears normal in structure and function. There is no | | |pulmonic valvular insufficiency. | | | | | |Vessels: | | |The aortic root is normal size. | | | | | |Other: | | |There is no pericardial effusion. | | | | | |Interpreting Physician: Luis Rm MD | | |electronically signed on 04/30/2014 05:55 PM | | |Ordering Physician: Rickey Galvan MD | | |Hr Coordinator: Zakia العراقي | | |[id number]: | | | | | + + --+ + + | Procedure Note | + + | Ariel, Rad Results In - 04/30/2014 5:55 PM PST | | Transesophageal | | Echo Report | | | | Name: PRABHJOT CASTANEDA Date: 04/30/2014 | | Patient Location: [facility] | | : 1945 Age: 68 yrs Gender | | : Male | | Height: 70 in Weight: 229 lb BSA: 2 | | .2 m2 | | HR: 70 Rhythm | | : Paced | | History: HTN, AVR, Obstructive sleep apnea, 02/27/2012 Pacemaker, Asthma | | Reason For Study: A fib; Eval for atrial thrombus pre ablation AUC 112 | | | | INTERPRETATION SUMMARY: | | A 2D transesophageal echocardiogram with color flow Doppler was performed. | | | | fibrillation transesophageal echocardiogram to evaluate for left | | atrial thrombus. | | | | Quality was satisfactory. The patient was post atrial appendage resection. | | No thrombus was identified in the left atrium. Left ventricular function | | appeared normal. There was mild to moderate mitral regurgitation present. | | | | Procedure Notes: | | The patient was intubated and general anesthesia administered by the | | Anesthesiology Dept staff. Normal monitoring of the patient's blood | | pressure, rhythm and oxygen saturation was performed. The transesophageal | | echo probe was placed without difficulty into the esophagus and a 2D/color | | Doppler SHAYNA exam was carried out. | | | | Left Ventricle: | | The left ventricle is normal in size. There is normal left ventricular | | wall thickness. The left ventricular systolic function is within normal | | limits. No regional wall motion abnormalities are noted. | | | | Right Ventricle: | | The right ventricle is normal in size and function. The right ventricular | | wall motion is normal. | | | | Atria: | | No obvious septal defect is seen with color Doppler. The left and right | | atrial chambers are both normal in size. | | | | Mitral Valve: | | The mitral valve appears normal in structure and function. There is mild | | to moderate mitral regurgitation. The mitral regurgitant jet is centrally | | directed into the left atrium. | | | | Tricuspid Valve: | | The tricuspid valve leaflets are thin and pliable. There is mild tricuspid | | regurgitation. | | | | Aortic Valve: | | No aortic insufficiency is present. There is a bioprosthetic aortic valve. | | | | Pulmonic Valve: | | The pulmonic valve appears normal in structure and function. There is no | | pulmonic valvular insufficiency. | | | | Vessels: | | The aortic root is normal size. | | | | Other: | | There is no pericardial effusion. | | | | Interpreting Physician: Luis Rm MD | | electronically signed on 04/30/2014 05:55 PM | | Ordering Physician: Rickey Galvan MD | | Hr Coordinator: Zakia العراقي | | [id number]: | + + + + | Transcriptions | + + | Stanislaw Tompkins - 04/30/2014 12:00 AM PST | + + + +---------+ + + | Performing | Address | City/State/Zipcode | Phone Number | | Organization | | | | + +---------+ + + | [facility] | | | [phone] | + +---------+ + + | [facility] | | | [phone] | + +---------+ + + documented in this encounter Visit Diagnoses + + | Diagnosis | + + | Atrial fibrillation (HCC) Atrial fibrillation | + + documented in this encounter"
--- OUTSIDE RECORDS SUMMARY | ~2019-10-21 | XMS | Encounter Summary ---
Demographics + + + | Address | [address] | | | [place] [address] | + + + | Home Phone | | + + + | Preferred Language | Unknown | + + + | Marital Status | | + + + | Adventism Affiliation | 1009 | + + + | Race | Unknown | + + + | Ethnic Group | Unknown | + + + Author + + + | Author | [facility] | | | and Jose Enriqueana | + + + | Organization | [facility] | | | and Jose Enriqueana | + + + | Address | Unknown | + + + | Phone | Unavailable | + + + Support + + + + + | Name | Relationship | Address | Phone | + + + + + | Sharlene Lagunas | ECON | [address] | | | [place] | | [place], [place] | | | | | [address] | | + + + + + | Rickey Bui | ECON | [address] [place], [place] | | | | | [address] | | + + + + + Care Team Providers + +------+ + | Care Migrant Leader Name | Role | Phone | + [...] Description | +--------+--------+ + + + | 09/02/ | Refill | EJNNIE SIDDIQUI | Joel Moise | Medication Refill | | 2015 | | [facility]OLOGY [facility] | MD Conchis [address] [place] [address] | | | | | [facility] [address] | [facility] [address] | | | | | [place] [address] [place] [address] | [place] [address] | | | | | [address] | [phone] | | | | | [phone] | | | +--------+--------+ + + + [...]
--- OUTSIDE RECORDS SUMMARY | ~2019-10-21 | XMS | Encounter Summary ---
Demographics + + + | Address | [address] | | | [place] [address] | + + + | Home Phone | | + + + | Preferred Language | Unknown | + + + | Marital Status | | + + + | Hinduism Affiliation | 1009 | + + + | Race | Unknown | + + + | Ethnic Group | Unknown | + + + Author + + + | Author | [facility] | | | and Jose Enriqueana | + + + | Organization | [facility] | | | and Jose Enriqueana | + + + | Address | Unknown | + + + | Phone | Unavailable | + + + Support + + + + + | Name | Relationship | Address | Phone | + + + + + | Sharlene Lagunas | ECON | [address] | | | [place] | | [address], [place] | | | | | [address] | | + + + + + | Rickey Bui | ECON | [address] [place], [place] | | | | | [address] | | + + + + + Care Team Providers + +------+ + | Care Engineering Surveyor Name | Role | Phone | + +------+ + | Tayo Robles DO | PCP | | + +------+ + Reason for Visit + + + | Reason | Comments | + + + | Device Check | Alberto. | | (Remote) | | + + + Encounter Details +--------+ + + + + | Date | Type | Department | Care Team | Description | +--------+ + + + + | 05/21/ | Implant | [facility] | Nicol [facility]les | Sinoatrial node | | 2015 | Monitor | [facility] [place] | K, RN | dysfunction (HCC) | | | | [address] | | (Primary Dx); | | | | [place] [address] [place] | | Cardiac pacemaker in | | | | [address] | | situ | | | | [phone] | | | +--------+ + + + [...] SERVIN | | | | | | [address] | | | | | | | | +--------+---------+ + + + documented as of this encounter Procedures + +--------+ + + + | Procedure Name | Priori | Date/Time | Associated Diagnosis | Comments | | | ty | | | | + +--------+ + + + | DEVICE INTERROGATION | Routin | 05/21/2015 | Sinoatrial node | Results for this | | | e | 5:54 PM | dysfunction (HCC) | procedure are in the | | | | PST | Cardiac pacemaker in | results section. | | | | | situ | | + +--------+ + + + documented in this encounter Results Device Interrogation (05/21/2015 5:54 PM PST) + + + | Narrative | Performed At | + + + | [facility], | | | NICOL Hua 05/21/2015 17:54 PATIENT NAME: Prabhjot Lee | | | [facility] : 1945: AGE: 69 y.o. Remote | | | Pacemaker Evaluation Report May 18, 2015 Reason for evaluation: | | | [...] | | | were reviewed. Settings Mode: AAIR<=>DDDR 70-130(130)Atrial Output: | | | 1.5V @ 0.4msVentricular Output: 2V @ 0.4ms Data Presenting rhythm is | | | A-fib/flutter- CHIEF WRITER rate ~77 bpm. When not in AT/AF: AP 53.4% and CHIEF WRITER | | | 5.9%. Mostly CHIEF WRITER when in AT/AF. Heart rate histograms appear | | | appropriate. Battery status: satisfactory. Voltage: 2.80V. Estimated | | | remaining longevity: 10 years. Lead impedances appear within normal | | | limits.Events noted since 10/14/14: 5,938 MS/ATR, longest >96 | | | hours, 72.3%. On anticoagulation. Was in 100% AT/AF burden from 02/18 | | | to around 05/05 or so, then drops to 0%, however presenting rhythm is | | | A-fib. 8 VHR, longest 24 seconds, appear atrial driven. Device | | | function appears appropriate.Remote follow-up per previous | | | schedule.Dr. Joel Moise MD has supervised and interpreted | | | this remote. | | | | | |Mode: AAIR<=>DDDR 70-130(130) | | |Atrial Output: 1.5V @ 0.4ms | | |Ventricular Output: 2V @ 0.4ms | | | | | |Data | | | | | |Presenting rhythm is A-fib/flutter- CHIEF WRITER rate ~77 bpm. When not in | | |AT/AF: AP 53.4% and CHIEF WRITER 5.9%. Mostly CHIEF WRITER when in AT/AF. Heart | | |rate histograms appear appropriate. Battery status: satisfactory. | | |Voltage: 2.80V. Estimated remaining longevity: 10 years. Lead | | |impedances appear within normal limits. | | |Events noted since 10/14/14: | | | 5,938 MS/ATR, longest >96 hours, 72.3%. On | | |anticoagulation. Was in 100% AT/AF burden from 02/18 to around | | |05/05 or so, then drops to 0%, however presenting rhythm is | | |A-fib. | | | 8 VHR, longest 24 seconds, appear atrial driven. | | | | | |Device function appears appropriate. | | |Remote follow-up per previous schedule. | | |Dr. Joel Moise MD has supervised and interpreted this | | |remote. | | | | | | | | | | | + + + documented in this encounter Visit Diagnoses + + | Diagnosis | + + | Sinoatrial node dysfunction (HCC) - Primary Sinoatrial node dysfunction | + + | Cardiac pacemaker in situ | + + documented in this encounter"
--- OUTSIDE RECORDS SUMMARY | ~2019-10-21 | XMS | Encounter Summary ---
Demographics + + + | Address | [address] | | | [place] [address] | + + + | Home Phone | | + + + | Preferred Language | Unknown | + + + | Marital Status | | + + + | Evangelical Affiliation | 1009 | + + + | Race | Unknown | + + + | Ethnic Group | Unknown | + + + Author + + + | Author | [facility] | | | and Jose Enriqueana | + + + | Organization | [facility] | | | and Jose Enriqueana | + + + | Address | Unknown | + + + | Phone | Unavailable | + + + Support + + + + + | Name | Relationship | Address | Phone | + + + + + | Sharlene Lagunas | ECON | [address] | | | [place] | | [address], [place] | | | | | [address] | | + + + + + | Rickey Bui | ECON | [address] [place], [place] | | | | | [address] | | + + + + + Care Team Providers + +------+ + | Care Cook Fish Eggs Name | Role | Phone | + [...] Refill | | 2015 | | [facility]ARDIOLOGY [facility] | MD Conchis [address] [place] [address] | | | | | [facility] [address] | [facility] [address] | | | | | [place] [address] [address] | [place] [address] | | | | | [address] | [phone] | | | | | [phone] | | | +--------+--------+ + + + [...]
--- OUTSIDE RECORDS SUMMARY | ~2019-10-21 | XMS | Encounter Summary ---
Demographics + + + | Address | [address] | | | [place] [address] | + + + | Home Phone | | + + + | Preferred Language | Unknown | + + + | Marital Status | | + + + | Orthodoxy Affiliation | 1009 | + + + | Race | Unknown | + + + | Ethnic Group | Unknown | + + + Author + + + | Author | [facility] | | | and Jose Enriqueana | + + + | Organization | [facility] | | | and Jose Enriqueana | + + + | Address | Unknown | + + + | Phone | Unavailable | + + + Support + + + + + | Name | Relationship | Address | Phone | + + + + + | Sharlene Henriquez | ECON | [address] | | | [place] | | [address], [place] | | | | | [address] | | + + + + + | Rickey Bui | ECON | [address] [place], [place] | | | | | [address] | | + + + + + Care Team Providers + +------+ + | Care Line Service Technician Name | Role | Phone | + +------+ + | Tayo Robles DO | PCP | | + +------+ + Reason for Visit + + + | Reason | Comments | + + + | Atrial Fibrillation | | + + + Follow Up (Routine) +--------+--------+ + + + + | Status | Reason | Specialty | Diagnoses / | Referred By | Referred To | | | | | Procedures | Contact | Contact | +--------+--------+ + + + + | Closed | | Cardiology | Diagnoses | [facility] | | | | | 3/3rds Per | [facility] | Cardiology | | | | | HRG 3 mo | CARDIOLOGY | [place] | | | | | follow up | [place] [address] | | | | | for afib | [address] | [address] | | | | | Procedures | [address] | [place] | | | | | ov and | [place] | [address] | | | | | device check | [address] | Phone: | | | | | | | [phone] | | | | | | | Fax: | | | | | | | [phone] | +--------+--------+ + + + + Encounter Details +--------+---------+ + + + | Date | Type | Department | Care Team | Description | +--------+---------+ + + + | 11/13/ | Office | [facility] | Joel Moise | Atrial | | 2013 | Visit | CARDIOLOGY [facility] | MD [address] | fibrillation/atrial | | | | [facility] [address] | [address] | flutter (Primary | | | | [address] | [place] [address] | Dx); | | | | [address] | [phone] | Hyperthyroidism; Hx | | | | [phone] | | of amiodarone | | | | | | therapy; Fatigue; | | | | | | Pacemaker - | | | | | | Medtronic - [id number] | | | | | | Adapta - Implanted | | | | | | 02/27/2012 | +--------+---------+ + + + Social History [...] + + + | Blood Pressure | 110/76 | 11/13/2013 1:43 PM | right | | | | PDT | | + + + + + | Pulse | 78 | 11/13/2013 1:43 PM | regular | | | | PDT | | [...] + + + + | Weight | 105.7 kg (233 lb) | 11/13/2013 1:43 PM | | | | | PDT | | + + + + + | Height | 195.6 cm (6' 5") | 11/13/2013 1:43 PM | | | | | PDT | | + + + + + | Body Mass Index | 27.63 | 11/13/2013 1:43 PM | | | | | PDT | | + + + + + documented in this encounter Patient Instructions Patient Instructions Joel Moise MD - 11/13/2013 2:37 PM PDTIncrease amiodarone to 4 00 mg a day for 1 week (Decrease coumadin to 2.5mg Mon and 5mg Mon Sat Sun fo r the week of Amio increase Then Amiodarone 300 mg daily Pacer transmission in 2 weeks and in 1 month See me in 6 weeks Amio testing Chest X ray Melatonin for sleep Support hose Start Flomax 0.4 mg nightly - see Dr. Travis sloan night time urination Hold Atacand. T documented in this encounter Progress Notes Joel Moise MD - 11/13/2013 2:51 PM PDTFormatting of this note might be different fr om the original. PATIENT NAME: Prabhjot Bui : 1945: AGE: 67 y.o. Joel Moise MD PRIMARY CARE: Tayo Robles DATE OF SERVICE: 11/13/2013 CHIEF COMPLAINT: Chief Complaint Patient presents with Atrial Fibrillation CURRENT ASSESSMENT BY PROBLEM LIST 1. Pacemaker History function is appropriate. V. paced 40% of the time. In atrial fibrillation approxi mately 60% of the time. He has been in atrial fibrillation almost persistently since [facility]. 2. A fibrillation In atrial fibrillation approximately 60% of the time. He has been in atrial fibrillation almost persistently since mid. 3. Fatigue Could relate to atrial fibrillation. We'll make additional efforts at keeping him in sinus rhythm. 4. Nocturnal urinary frequency Trial of Flomax and will hold Atacand do not have his blood pressure be too low. 5. Significant edema Appears to be related to venous insufficiency. His been present in the past but is worse n ow. There is no evidence of right heart failure. 6. Sleep disturbance Trial of melatonin Plan: Increase amiodarone to 400 mg a day for 1 week (Decrease coumadin to 2.5mg Mon and 5mg Mon Sat Sun for the week of Amio increase Then Amiodarone 300 mg daily Pacer transmission in 2 weeks and in 1 month See me in 6 weeks Amio testing Chest X ray Melatonin for sleep Support hose Start Flomax 0.4 mg nightly - see Dr. Robles re night time urination Hold Atacand FOLLOWUP Return in about 6 weeks (around 12/25/2013) for a Fib. MEDICATION ADJUSTMENTS New Prescriptions No medications on file These Medications Have Changed Start Taking Instead of thyroid (ARMOUR THYROID) 60 MG tablet thyroid (ARMOUR THYROID) 60 MG tablet Dosage: Take 60 mg by mouth 2 times daily. 75mg in am and 60mg in pm - Oral Dosage: Take 60 mg by mouth 2 times daily. - Oral TAURINE PO TAURINE PO Dosage: Six caps daily Dosage: CAPS eight daily metoprolol succinate (TOPROL-XL) 50 mg 24 hr tablet metoprolol succinate (TOPROL XL) 50 mg 24 hr tablet Dosage: Take 75 mg by mouth Daily. Takes 50 mg in am and 25 mg in evening. - Oral Dosage: Take 1.5 tablets by mouth Daily. - Oral amiodarone (PACERONE) 200 mg tablet amiodarone (PACERONE) 200 mg tablet Dosage: Take 1.5 tablets by mouth Daily. Take 400mg daily for 1 week starting 11/14/13 for 1 week. - Oral Dosage: One tab daily and and 1 1/2 tabs Mon and . Medications Discontinued During This Encounter Medication Reason metoprolol succinate (TOPROL XL) 50 mg 24 hr tablet amiodarone (PACERONE) 200 mg tablet TAURINE PO thyroid (ARMOUR THYROID) 60 MG tablet amiodarone (PACERONE) 200 mg tablet Reorder NEW ORDERS Orders Placed This Encounter Procedures XR Chest PA and Lateral HISTORY OF PRESENT ILLNESS 67 y.o. year old male seen in follow up for atrophic fibrillation and pacer implantation. In mid July he was hardly in atrial fibrillation and we reduced amiodarone at that time.. The dose was 300 mg 2 days a week and 200 mg 5 days a week. After he developed more frequen t episodes of atrial fibrillation I sent him a letter and asked him to increase to 300 mg a day for a week and then to be of 300 mg 4 days a week and 200 mg Monday. Yg henriquez has increased ankle edema after flying recently. He also recently had double the dose of Coumadin by mistake and his INR was 3.9 the other day. Overall, the main change that he and his 's you are concerned about his increased fatigue has developed along with increased episodes of atrial fibrillation. His Ryann would like to know why the amiodarone was re duced and I indicated at age 67 we needed to try to find a lower dose for long-term greater safety for Prabhjot. POST VISIT MEDICATIONS: Current Outpatient Prescriptions Medication Sig amiodarone (PACERONE) 200 mg tablet Take 1.5 tablets by mouth Daily. Take 400mg daily f or 1 week starting 11/14/13 for 1 week. candesartan (ATACAND) 16 mg tablet Take 8 mg by mouth Daily. Pt is currently holding. CHELATED MAGNESIUM 100 MG TABS Take 100 mg by mouth Daily. Cholecalciferol (CVS VITAMIN D) 2000 UNITS CAPS three daily clonidine (CATAPRES) 0.2 MG tablet TAKE 1 TABLET TWICE A DAY Coenzyme Q10 (COQ10) 50 MG CAPS Take 50 mg by mouth Daily. Cyanocobalamin (B-12 SL) SUBL .5 units or .25 twice a week DHEA 25 MG CAPS Take 25 mg by mouth Daily. fish oil 1,000 mg capsule Take 1,000 mg by mouth Daily. Garlic 1000 MG CAPS Take 1,000 mg by mouth Daily. MAGNESIUM SULFATE IN D5W IV SOLN twice weekly metoprolol succinate (TOPROL-XL) 50 mg 24 hr tablet Take 75 mg by mouth Daily. Takes 50 mg in am and 25 mg in evening. NADH Disodium POWD by Does not apply route Daily. Saw Henry, Serenoa repens, (SAW PALMETTO PO) CAPS four daily TAURINE PO Six caps daily Testosterone Cypionate (DEPO-TESTOSTERONE IM) OIL three times a week thyroid (ARMOUR THYROID) 60 MG tablet Take 60 mg by mouth 2 times daily. 75mg in am and 60mg in pm UNCODED MEDICATION Diagnosis: Obstructive Sleep Apnea ICD-9: 327.23 Length of Need: 99 Months warfarin (COUMADIN) 5 mg tablet Take by mouth See Admin Instructions. As directed by Dylan TA ALLERGIES Prabhjot is allergic to amoxicillin. MEDICAL, SURGICAL, AND PERSONAL HISTORY Prabhjot has a past medical history of Paroxysmal atrial fibrillation (HCC); Aortic insufficie ncy and aortic stenosis; Hypertension; Diverticular disease; Colon polyp; and Aortic root di lation (HCC). Prabhjot has past surgical history that includes Cardioversion (06/19/00,11/24/00,07/25/01,10/18/01, 12/26/02,12/02/04); Atrial ablation surgery; Inguinal hernia repair; Wrist surgery; Cholecystec sandor; AORTIC ROOT REPLACEMENT AND REIMPLANTATION OF CORONARY ARTERIES (05/28/08); ASCENDING AO RTA REPLACEMENT (05/28/08); Cardiac pacemaker placement (02/27/12); Cardioversion (03/07/13); a nd shoulder surgery (05/28/13). Family History: His family history includes Atrial Fibrillation in his mother; Hypertensi on in his mother and sister; and Stroke (age of onset:62) in his sister. Social History: He reports that he has never smoked. He has never used smokeless tobacco. He reports that he does not drink alcohol or use illicit drugs. ROS 14 point ROS was completed and is negative except for: Ears-hearing loss and ringing. Resp iratory-cough shortness breath and wheezing. -nocturnal frequency. MS/back pain. -- Eas y bruising. Psychiatric insomnia and memory loss. PHYSICAL EXAM BP 110/76 | Pulse 78 | Ht 1.956 m (6' 5") | Wt 105.688 kg (233 lb) | BMI 27.62 kg/m2 Blood pressures are equal in upper extremities. Body mass index is 27.62 kg/(m^2). GENERAL: Pleasant appearing in no apparent distress HEENT: Conjunctivae and lids are normal in appearance. Eyes: Extraocular movements intact. NECK: Supple, no JVD, Carotids are 2+ and brisk bilaterally without bruits. LUNGS: Full expansion. Clear to auscultation. CHEST: Pacer site well-healed on the left. Well-healed midline sternotomy CARDIAC: PMI is non-displaced. S1-S2 normal without murmur or gallop. ABDOMEN: Soft, non-tender, nondistended with normal, active bowel sounds. Normal abdominal pulsation without bruit. EXTREMITIES: No clubbing or cyanosis. There is 3+ bilaterally edema. PULSES: Right: radial 2+. Left: radial 2+, posterior tibial 2+ bilaterally NEUROLOGIC: Non-focal. Patient is oriented to time, place, and person. Normal affect. SKIN: No rashes or skin breakdown. MUSCULOSKELETAL: Back mild kyphosis.. Muscle strength is equal bilaterally. Pacemaker analysis: See mechanical service technician report Thresholds are good in the ventricle. Not known in the atrium due to atrial fibrillation. A pace-. V. paced 40%. Atrial fibrillation present 68% of the time and in fact maybe more persistent recognizing some dropout. LABS Lab Results Component Value Date CHOL 124 10/15/2010 TRIG 49 10/15/2010 HDL 44 10/15/2010 LDL 70 10/15/2010 ALT 26 03/07/2013 AST 27 03/07/2013 CREA 1.02 03/07/2013 Thank you for allowing me to participate in the care of this patient. If you have any ques tions, please do not hesitate to contact me. Signed by: Joel Moise MD 11/13/2013, 18:07 Patient Care Team: Tayo Robles as PCP - General (Family Medicine - Sports Medicine) KENNETH Givens (Physician Farmworker Livestock) Joel Moise MD as Physician (Cardiology) Portions of this report were transcribed using voice recognition software. Every effort was made to ensure accuracy; however, inadvertent computerized oven worker errors may be pres ent. documented in this e ncounter Plan of Treatment +--------+---------+ + + + | Date | Type | Specialty | Care Team | Description | +--------+---------+ + + + | 10/30/ | Office | Sleep Medicine | Rickey Zaragoza PA | | | 2020 | Visit | | [address] | | | | | | [facility] [place] | | | | | | [phone] | | | | | | | | +--------+---------+ + + + documented as of this encounter Results XR Chest PA and Lateral (12/10/2013 9:06 AM PDT) + + + | Impressions | Performed At | + + + | Results not interfaced with Epic. Please see scanned report in | [facility] | | Media tab. No Amiodarone effects noted per ANASTASIYA Wong , dany in | [facility] - | | 6 months. See Phone note | [facility] | + + + + + + + + | Performing | Address | City/State/Zipcode | Phone Number | | Organization | | | | + + + + + | [place] | [facility] [address] | [place] [address] | [phone] | | - [facility] | [place] | | | + + + + + documented in this encounter Visit Diagnoses + + | Diagnosis | + + | Atrial fibrillation/atrial flutter - Primary Atrial fibrillation | + + | Hyperthyroidism Thyrotoxicosis without mention of goiter or other cause, without | | mention of thyrotoxic crisis or storm | + + | Hx of amiodarone therapy Follow-up examination following completed treatment with | | high-risk medications, not elsewhere classified | + + | Fatigue Other malaise and fatigue | + + | Pacemaker - Medtronic - [id number] Adapta - Implanted 02/27/2012 Cardiac pacemaker in situ | + + documented in this encounter
--- OUTSIDE RECORDS SUMMARY | ~2019-10-21 | XMS | Encounter Summary ---
Demographics + + + | Address | [address] | | | [place] [address] | + + + | Home Phone | | + + + | Preferred Language | Unknown | + + + | Marital Status | | + + + | Mandaeism Affiliation | 1009 | + + + | Race | Unknown | + + + | Ethnic Group | Unknown | + + + Author + + + | Author | [facility] | | | and Jose Enriqueana | + + + | Organization | [facility] | | | and Jose Enriqueana | + + + | Address | Unknown | + + + | Phone | Unavailable | + + + Support + + + + + | Name | Relationship | Address | Phone | + + + + + | Sharlene Lagunas | ECON | [address] | | | [place] | | [address] [place] | | | | | [address] | | + + + + + | Rickey Bui | ECON | [address] [place], [place] | | | | | [address] | | + + + + + Care Team Providers + +------+ + | Care Sales Merchandiser Name | Role | Phone | + +------+ + | Tayo Robles DO | PCP | | + +------+ + Reason for Visit + + + | Reason | Comments | + + + | Device Check | Reminder | | (Remote) | | + + + Encounter Details +--------+ + + + + | Date | Type | Department | Care Team | Description | +--------+ + + + + | 07/04/ | Telephone | [facility] | Joel Moise | Device Check | | 2019 | | CARDIOLOGY [facility] | MD [address] | (Remote) (Reminder) | | | | [facility] [address] | [address] | | | | | [address] [place] | [place] [address] | | | | | [address] | [phone] | | | | | [phone] | | | +--------+ + + + [...] SERVIN | | | | | | [id number] | | | | | | | | +--------+---------+ + + + documented as of this encounter Visit Diagnoses Not on filedocumented in this encounter"
--- OUTSIDE RECORDS SUMMARY | ~2019-10-21 | XMS | Encounter Summary ---
Demographics + + + | Address | [address] | | | [place] [address] | + + + | Home Phone | | + + + | Preferred Language | Unknown | + + + | Marital Status | | + + + | Anglican Affiliation | 1009 | + + + | Race | Unknown | + + + | Ethnic Group | Unknown | + + + Author + + + | Author | [facility] | | | and Jose Enriqueana | + + + | Organization | [facility] | | | and Jose Enriqueana | + + + | Address | Unknown | + + + | Phone | Unavailable | + + + Support + + + + + | Name | Relationship | Address | Phone | + + + + + | Sharlene Lagunas | ECON | [address] | | | [place] | | [address], [place] | | | | | [address] | | + + + + + | Rickey Bui | ECON | [address] [place], [place] | | | | | [address] | | + + + + + Care Team Providers + +------+ + | Care Visiting Teacher Name | Role | Phone | [...] Description | +--------+--------+ + + + | 08/04/ | Refill | [facility] | Joel Moise | Medication Refill | | 2015 | | CARDIOLOGY [facility] | MD Conchis [address] [place] [address] | | | | | [facility] [address] | [facility] [address] | | | | | [place] [address] [address] | [place] [address] | | | | | [address] | [phone] | | | | | [phone] | | | +--------+--------+ + + + [...]
--- OUTSIDE RECORDS SUMMARY | ~2019-10-21 | XMS | Encounter Summary ---
Demographics + + + | Address | [address] | | | [place] [address] | + + + | Home Phone | | + + + | Preferred Language | Unknown | + + + | Marital Status | | + + + | Shinto Affiliation | 1009 | + + + | Race | Unknown | + + + | Ethnic Group | Unknown | + + + Author + + + | Author | [facility] | | | and Jose Enriqueana | + + + | Organization | [facility] | | | and Jose Enriqueana | + + + | Address | Unknown | + + + | Phone | Unavailable | + + + Support + + + + + | Name | Relationship | Address | Phone | + + + + + | Sharlene Lagunas | ECON | [address] | | | [place] | | [address], [place] | | | | | [address] | | + + + + + | Rickey Bui | ECON | [address] [place], [place] | | | | | [address] | | + + + + + Care Team Providers + +------+ + | Care Global Account Manager Name | Role | Phone | + +------+ + PCP | Unavailable | + +------+ + Encounter Details +--------+ + + + + | Date | Type | Department | Care Team | Description | +--------+ + + + + | 09/15/ | Hospital | [facility] | | | | 1993 | Encounter | MED CTR XRAY [address] | | | | | | [place] | | | | | | [place] [address] | | | | | | [phone] | | | +--------+ + + + [...] SERVIN | | | | | | [address] | | | | | | | | +--------+---------+ + + + documented as of this encounter Visit Diagnoses Not on filedocumented in this encounter"
--- OUTSIDE RECORDS SUMMARY | ~2019-10-21 | XMS | Encounter Summary ---
Demographics + + + | Address | [address] | | | [place] [address] | + + + | Home Phone | | + + + | Preferred Language | Unknown | + + + | Marital Status | | + + + | Buddhism Affiliation | 1009 | + + + | Race | Unknown | + + + | Ethnic Group | Unknown | + + + Author + + + | Author | [facility] | | | and Jose Enriqueana | + + + | Organization | [facility] | | | and Jose Enriqueana | + + + | Address | Unknown | + + + | Phone | Unavailable | + + + Support + + + + + | Name | Relationship | Address | Phone | + + + + + | Sharlene Lagunas | ECON | [address] | | | [place] | | [address], [place] | | | | | [address] | | + + + + + | Rickey Biu | ECON | [address], [place] | | | | | [address] | | + + + + + Care Team Providers + +------+ + | Care Cotton Expert Name | Role | Phone | + [...] | +--------+ + + + + | 02/18/ | Implant | [facility] | Luisa Martinez V, | Cardiac pacemaker in | | 2017 | Monitor | [facility] | Technologist | situ (Primary Dx); | | | | [address] | | Sinoatrial node | | | | [place] [address] | | dysfunction (HCC) | | | | [address] | | | | | | [phone] | | | +--------+ + + + [...] SERVIN | | | | | | [id number] | | | | | | | | +--------+---------+ + + + documented as of this encounter Procedures + +--------+ + + + | Procedure Name | Priori | Date/Time | Associated Diagnosis | Comments | | | ty | | | | + +--------+ + + + | DEVICE | Routin | 02/18/2017 | Sinoatrial node | Results for this | | INTERROGATION- | e | 11:59 PM | dysfunction (HCC) | procedure are in the | | REMOTE | | PDT | Cardiac pacemaker in | results section. | | | | | situ | | + +--------+ + + + documented in this encounter Results Device Interrogation - Remote (02/18/2017 11:59 PM PDT) + + + | Narrative | Performed At | + + + | Luisa [facility], | [facility] | | Technologist 02/18/2017 16:51 PATIENT NAME: Prabhjot Lee | | | [place]ao : 1945: AGE: 71 y.o. Remote | | | Pacemaker Evaluation Report January 05, 2017 Reason for evaluation: | | | routineIndication for pacemaker: ICD-10-CM ICD-9-CM 1. Cardiac | | | pacemaker in situ Z95.0 V45.01 Device Interrogation - Remote 2. | | | Sinoatrial node dysfunction (HCC) I49.5 427.81 Device Interrogation - | | | Remote Remotely captured device data was reviewed for pacemaker | | | parameters, battery status, percentage of pacing and significant | | | arrhythmias. Heart rate histograms were evaluated for adequate heart | | | rate response and any alerts reviewed. Pacing lead impedances were | | | reviewed for any significant changes. Final pacing outputs and | | | programming parameters were reviewed. Settings Mode: VVIR | | | 70-130Ventricular Output: 2V @ 0.4ms Data Presenting rhythm is ENTERPRISE SERVICES MANAGER/VS. | | | ENTERPRISE SERVICES MANAGER 52.2%. Patient is on anticoagulant. Heart rate histograms | | | appear appropriate. Battery status: satisfactory. Voltage: 2.79 V. | | | Estimated remaining longevity: 9.5 years. Lead impedance appears | | | within normal limits.Events noted: NoneDevice function appears | | | appropriate.Remote follow-up in 3 months. Supervising and interpreting | | | physician for this remote,Joel Moise MD | | |arrhythmias. Heart rate histograms were evaluated for adequate | | |heart rate response and any alerts reviewed. Pacing lead | | |impedances were reviewed for any significant changes. Final | | |pacing outputs and programming parameters were reviewed. | | | | | |Settings | | | | | |Mode: VVIR 70-130 | | |Ventricular Output: 2V @ 0.4ms | | | | | |Data | | | | | |Presenting rhythm is ENTERPRISE SERVICES MANAGER/VS. ENTERPRISE SERVICES MANAGER 52.2%. Patient is on | | |anticoagulant. Heart rate histograms appear appropriate. | | |Battery status: satisfactory. Voltage: 2.79 V. Estimated | | |remaining longevity: 9.5 years. Lead impedance appears within | | |normal limits. | | |Events noted: None | | |Device function appears appropriate. | [...] | Diagnosis | + + | Cardiac pacemaker in situ - Primary | + + | Sinoatrial node dysfunction (HCC) Sinoatrial node dysfunction | + + documented in this encounter"
--- OUTSIDE RECORDS SUMMARY | ~2019-10-21 | XMS | Encounter Summary ---
Demographics + + + | Address | [address] | | | [place] [address] | + + + | Home Phone | | + + + | Preferred Language | Unknown | + + + | Marital Status | | + + + | Sabianism Affiliation | 1009 | + + + | Race | Unknown | + + + | Ethnic Group | Unknown | + + + Author + + + | Author | [facility] | | | and Jose Enriqueana | + + + | Organization | [facility] | | | and Jose Enriqueana | + + + | Address | Unknown | + + + | Phone | Unavailable | + + + Support + + + + + | Name | Relationship | Address | Phone | + + + + + | Sharlene Lagunas | ECON | [address] | | | [address] | | [address], [place] | | | | | [address] | | + + + + + | Rickey Bui | ECON | [address], [place] | | | | | [address] | | + + + + + Care Team Providers + +------+ + | Care Land Management Forester Name | Role | Phone | + [...] | +--------+ + + + + | 05/20/ | Implant | JENNIE SIDDIQUI | Luisa Martinez V, | Cardiac pacemaker in | | 2016 | Monitor | [facility] | Technologist | situ (Primary Dx); | | | | HI4 [address] | | Complete | | | | [place] [address] | | atrioventricular | | | | [address] | | block (HCC) | | | | [phone] | | | +--------+ + + + [...] SERVIN | | | | | | [id number] | | | | | | | | +--------+---------+ + + + documented as of this encounter Procedures + +--------+ + + + | Procedure Name | Priori | Date/Time | Associated Diagnosis | Comments | | | ty | | | | + +--------+ + + + | DEVICE | Routin | 05/21/2016 | Cardiac pacemaker | Results for this | | INTERROGATION- | e | 11:50 AM | in situ Complete | procedure are in the | | REMOTE | | PST | atrioventricular | results section. | | | | | block (HCC) | | + +--------+ + + + documented in this encounter Results Device Interrogation - Remote (05/21/2016 11:50 AM PST) + + + | Narrative | Performed At | + + + | Luisa Martinez V, | [facility] | | Tech 05/21/2016 11:50 PATIENT NAME: Prabhjot Bui | | | : 1945: AGE: 70 y.o. Remote Pacemaker Evaluation | | | Report April 06, 2016 Reason for evaluation: routineIndication for | | | pacemaker: ICD-10-CM ICD-9-CM 1. Cardiac pacemaker in situ Z95.0 | | | V45.01 Device Interrogation - Remote 2. Complete atrioventricular | | | block (HCC) I44.2 426.0 Device Interrogation - Remote Remotely | | | captured device data [...] | | | were reviewed. Settings Mode: VVIRVentricular Output: 2V @ 0.4ms Data | | | Presenting rhythm is FURNACE CHARGING MACHINE OPERATOR/VS. FURNACE CHARGING MACHINE OPERATOR 45.6%. Patient is on anticoagulant. | | | Heart rate histograms appear appropriate. Battery status: | | | satisfactory. Voltage: 2.79 V. Estimated remaining longevity: 11 | | | years. Lead impedance appears within normal limits.Events noted: | | | NoneDevice function appears appropriate.Remote follow-up in 3 months. | | | Supervising and interpreting physician for this remote,Joel Balderrama | | | MD Jose Maria | | |arrhythmias. Heart rate histograms were evaluated for adequate | | |heart rate response and any alerts reviewed. Pacing lead | | |impedances were reviewed for any significant changes. Final | | |pacing outputs and programming parameters were reviewed. | | | | | |Settings | | | | | |Mode: VVIR | | |Ventricular Output: 2V @ 0.4ms | | | | | |Data | | | | | |Presenting rhythm is FURNACE CHARGING MACHINE OPERATOR/VS. FURNACE CHARGING MACHINE OPERATOR 45.6%. Patient is on | | |anticoagulant. Heart [...] situ - Primary | + + | Complete atrioventricular block (HCC) Atrioventricular block, complete | + + documented in this encounter"
--- OUTSIDE RECORDS SUMMARY | ~2019-10-21 | XMS | Encounter Summary ---
Demographics + + + | Address | [address] | | | [place] [address] | + + + | Home Phone | | + + + | Preferred Language | Unknown | + + + | Marital Status | | + + + | Islam Affiliation | 1009 | + + + | Race | Unknown | + + + | Ethnic Group | Unknown | + + + Author + + + | Author | [facility] | | | and Jose Enriqueana | + + + | Organization | [facility] | | [...] [address] | | | [address] | | [address], [place] | | | | | [address] | | + + + + + | Rickey Bui | ECON | [address], [place] | | | | | [address] | | + + + + + Care Team Providers + +------+ + | Care Mathematics Improvement Teacher Name | Role | Phone | + +------+ + | Tayo Robles DO | PCP | | + +------+ + Reason for Visit + + + | Reason | Comments | + + + | Atrial Fibrillation | follow up | + + + Encounter Details +--------+---------+ + + + | Date | Type | Department | Care Team | Description | +--------+---------+ + + + | 10/14/ | Office | [facility] | Augusto Moise | Paroxysmal atrial | | 2015 | Visit | [facility] | MD [address] | fibrillation (HCC) | | | | [address] | [address] | (Primary Dx); | | | | [address] | [place] [address] | Pacemaker - | | | | [place], [place] | [phone] | Medtronic - [id number] | | | | [address] | | Adapta - Implanted | | | | [phone] | | 02/27/2012 DO NOT | | | | | | RESOLVE; Hx of | | | | | | amiodarone therapy; | | | | | | Hypertension; Status | | | | | | post aortic valve | | | | | | replacement | +--------+---------+ + + + Social History [...] + + + | Blood Pressure | 130/60 | 10/14/2014 1:41 PM | left | | | | PDT | | + + + + + | Pulse | 84 | 10/14/2014 1:41 PM | regular | | | | [...] Weight | 106.6 kg (235 lb) | 10/14/2014 1:41 PM | | | | | PDT | | + + + + + | Height | 177.8 cm (5' 10") | 10/14/2014 1:41 PM | | | | | PDT | | + + + + + | Body Mass Index | 33.72 | 10/14/2014 1:41 PM | | | | | PDT | | + + + + + documented in this encounter Patient Instructions Patient Instructions Augusto Moise MD - 10/14/2014 2:53 PM PDTContinue present medi cations and use supplements as desired See [facility] / or we need to have coffee available and a map Keep on pacer schedule documented in this encounter Progress Notes Augusto Moise MD - 10/13/2014 5:29 PM PDT PATIENT NAME: Prabhjot Bui : 1945: AGE: 68 y.o. PRIMARY CARE: Tayo Robles CHIEF COMPLAINT: Chief Complaint Patient presents with Atrial Fibrillation follow up HISTORY OF PRESENT ILLNESS 68 y.o. year old male seen in follow up for the problems listed below. Patient has some ep isodic fatigue, but he has not noticed any significant change in his exercise capacity in th e last 6 weeks compared to 6 weeks prior. He denies any chest pain, orthopnea, PND. He adm its to ankle edema that is unchanged. He works for a while then needs to rest. He has been off amiodarone since approximately July 20, [address] Rickey Galvan. Off a miodarone he has needed a change in his [place] Thyroid from 75 AM and 60 p.m. to 75 AM and 3 0 p.m. He has not taken his reliably his shots of magnesium or B12. In addition he supplem ents with taurine and the dose has not been the usual dose that he has been prescribed. CURRENT ASSESSMENT BY PROBLEM LIST 1. Paroxysmal atrial fibrillation (HCC); patient presently is in atrial flutter based on an alysis of the pacemaker. He feels no differently now with persistent atrial flutter for the last 6 weeks and he did 6 weeks earlier. He has undergone his third ablation procedure in April 2014. He stayed on amiodarone for 2 months post procedure and then relapsed. Give n his age of 68 I am hesitant to resume amiodarone which is what would be needed (along with cardioversion) in order to maintain sinus rhythm. Functionally, he does not demonstrate adilene t he truly is different in his functional capacity in flutter compared to SR. 2. Pacemaker - Medtronic - ADDRL1 Adapta - Implanted 02/27/2012 - pacemaker function is appr opriate If he stays in atrial flutter we see him next, we would programmed to VVIR. 3. Hx of amiodarone therapy - off amiodarone since early July 2014. 4. Hypertension -BP well controlled this time 5. Status post aortic valve replacement - valve sounds good at this time Plan: 1. Remain off amiodarone 2. Labs to remain in permanent atrial flutter 3. See me in February FOLLOWUP Return in about 5 months (around 03/16/2015) for pacer . MEDICATION ADJUSTMENTS New Prescriptions No medications on file Medications Discontinued During This Encounter Medication Reason amiodarone (PACERONE) 200 mg tablet Therapy completed NADH Disodium POWD Therapy completed Magnesium-Zinc (MAGNESIUM-CHELATED ZINC) 133.33-5 MG TABS Patient Not Taking non-formulary medication Patient Not Taking DARINEL PEOPLES PO Patient Not Taking ketoconazole (NIZORAL) 2% shampoo Patient Not Taking fluticasone (FLONASE) 50 mcg/nasal spray Patient Not Taking NEW ORDERS No orders of the defined types were placed in this encounter. . MEDICAL, SURGICAL, AND PERSONAL HISTORY Past Medical History Diagnosis Date Paroxysmal atrial fibrillation (HCC) Last cardioversion 12/26/02. Pulmonary vein isolation carried out at the [facility] on 09/01/01. Aortic insufficiency and aortic [...] SARAVIA; Laterality: N/A; Surgeon: Ty Arzola; Location: [facility] His family history includes Atrial Fibrillation in his mother; Colon cancer in his brother ; Hypertension in his mother and sister; Stroke (age of onset: 62) in his sister. He reports that he has never smoked. He has never used smokeless tobacco. He reports that he does not drink alcohol or use illicit drugs. CURRENT MEDICATIONS Outpatient Encounter Prescriptions as of 10/14/2014 Medication Sig Dispense Refill [DISCONTINUED] amiodarone (PACERONE) 200 mg tablet Take 1 tablet by mouth Daily. 60 tab let 3 anastrozole (ARIMIDEX) 1 mg tablet Take 0.25 tablets by mouth every 7 days. MONDAYS Cholecalciferol ([employer] VITAMIN D) 2000 UNITS CAPS Take 4,000 Units by mouth Daily. clonidine (CATAPRES) 0.2 MG tablet Take 1 tablet by mouth 2 times daily. 180 tablet 2 Coenzyme Q10 (EQL COQ10) 200 MG CAPS Take 200 mg by mouth Daily. Cyanocobalamin 1000 MCG/ML KIT Inject as directed Every 3 days. DHEA 25 MG CAPS Take 25 mg by mouth Daily. digoxin (DIGOX) 250 mcg tablet Take 1 tablet by mouth Daily. 90 tablet 1 fish oil 1,000 mg capsule Take 1,000 mg by mouth Daily. Fluconazole (DIFLUCAN PO) Take by mouth. [DISCONTINUED] fluticasone (FLONASE) 50 mcg/nasal spray 1 spray by Nasal route Daily. 1 g 0 Garlic 1000 MG CAPS Take 1,000 mg by mouth Daily. [DISCONTINUED] DARINEL PEOPLES PO Take 250 mg by mouth nightly. [DISCONTINUED] ketoconazole (NIZORAL) 2% shampoo L-Methylfolate 15 MG TABS Take 7.5 mg by mouth 2 times daily. magnesium sulfate 500 mg/mL injection Inject into the muscle Twice a week. Monday AND MONDAYAs directed [DISCONTINUED] Magnesium-Zinc (MAGNESIUM-CHELATED ZINC) 133.33-5 MG TABS Take 1 tablet by mouth Daily. Melatonin-Pyridoxine (MELATIN) 3-1 MG TABS Take 1 mg by mouth nightly. metoprolol succinate (TOPROL-XL) 50 mg 24 hr tablet Take 1 tablet by mouth 2 times eduin y. 180 tablet 1 [DISCONTINUED] NADH Disodium POWD 20 mg by Does not apply route Daily. [DISCONTINUED] non-formulary medication prevegan 10 mg 1 capsule daily Probiotic Product (PROBIOTIC DAILY PO) Take by [...] 75mg in am and 30mg in pm UNABLE TO FIND Take 25 mg by mouth Daily. Med Name: IdODRIAL UNCODED MEDICATION Diagnosis: Obstructive Sleep Apnea ICD-9: 327.23 Length of Need: 99 Months 1 Device 0 warfarin (COUMADIN) 5 mg tablet Take by mouth See Admin Instructions. As directed by Dylan TA No facility-administered encounter medications on file as of 10/14/2014. ALLERGIES Allergies Allergen Reactions Flecainide Other (See Comments) AFTER 1ST ABLATION, HAD LEG SWELLING, INCREASED HEART RATE Amoxicillin Rash ROS 14 point ROS was completed and is negative except for: Hearing loss. Frequency. Joint arjun n. Insomnia and memory loss PHYSICAL EXAM BP 130/60 | Pulse 84 | Ht 1.778 m (5' 10") | Wt 106.595 kg (235 lb) | BMI 33.72 kg/m2 Body mass index is 33.72 kg/(m^2). GENERAL: Pleasant appearing in no apparent distress HEENT: Conjunctivae and lids are normal in appearance. Pharynx: benign Eyes: Extraocular movements intact. NECK: Supple, JVD none, Carotids are 2+ and brisk bilaterally without bruits. LUNGS: Full expansion. Clear to auscultation. CHEST: Pacemaker site well healed on the left. Well healed midline sternotomy. CARDIAC: PMI is non-displaced. Regular rate and rhythm with S1 normal, S2 normal. No mur murs. No rubs or gallops. Blood pressures are equal in upper extremities. ABDOMEN: Soft, non-tender, nondistended with normal, active bowel sounds. Normal abdominal pulsation without bruit. EXTREMITIES: No clubbing, cyanosis, 2+ edema. PULSES: Right: radial 2+ Left: radial 2+, posterior tibial 3+ right 2+ left NEUROLOGIC: Non-focal. Patient is oriented to time, place, and person. Normal affect. SKIN: No rashes or skin breakdown. No bruising. MUSCULOSKELETAL: Back - no CVA or paravertebral tenderness. Muscle strength is equal bilate rally. EKG: June 30, 2014 a paced first-degree AV block Pacemaker analysis: 10/14/14 cc admission report limited evaluation: R-wave 11. Impedance 437. HM atrial flutter. AAIR to DDDR lower rate 70 and upper rate 1:30. Output ventricle 2 V/0.4 sensitivity 5.6. Atrium 1.5/44. A paced 85%. V paced 1.2%. Mode switched essentially continually since September 03, 2014. LABS Lab Results Component Value Date WBC 8.6 05/01/2014 HGB 14.0 05/01/2014 HCT 42.6 05/01/2014 PLT 142* 05/01/2014 CHOL 124 10/15/2010 TRIG 49 10/15/2010 HDL 44 10/15/2010 ALT 26 03/07/2013 AST 27 03/07/2013 NA 139 04/30/2014 K 4.3 04/30/2014 CL 106 04/30/2014 CREA 0.89 04/30/2014 BUN 13 04/30/2014 CO2 29* 04/30/2014 TSH 0.07* 03/07/2013 PSA 1.02 08/23/2012 INR 2.2* 05/01/2014 BNP 109* 01/17/2011 BNP 109* 01/17/2011 Thank you for allowing me to participate in the care of this patient. If you have any ques tions, please do not hesitate to contact me. Signed by: Augusto Moise MD 10/14/2014, 17:47 Patient Care Team: Tayo Robles as PCP - General (Family Medicine - Sports Medicine) KENNETH Givens (Physician Bread Jockey) Augusto Moise MD as Physician (Cardiology) documented in thi s encounter Plan of Treatment +--------+---------+ + + [...] + | Diagnosis | + + | Paroxysmal atrial fibrillation (HCC) - Primary Atrial fibrillation | + + | Pacemaker - Medtronic - [id number] Adapta - Implanted 02/27/2012 DO NOT RESOLVE Cardiac | | pacemaker in situ | + + | Hx of amiodarone therapy Follow-up examination following completed treatment with | | high-risk medications, not elsewhere classified | + + | Hypertension Unspecified essential hypertension | + + | Status post aortic valve replacement Heart valve replaced by other means | + + documented in this encounter
--- OUTSIDE RECORDS SUMMARY | ~2019-10-21 | XMS | Encounter Summary ---
Demographics + + + | Address | [address] | | | [place] [address] | + + + | Home Phone | | + + + | Preferred Language | Unknown | + + + | Marital Status | | + + + | Restorationism Affiliation | 1009 | + + + | Race | Unknown | + + + | Ethnic Group | Unknown | + + + Author + + + | Author | [facility] | | | and Jose Enriqueana | + + + | Organization | [facility] | | | and Jose Enriqueana | + + + | Address | Unknown | + + + | Phone | Unavailable | + + + Support + + + + + | Name | Relationship | Address | Phone | + + + + + | Sharlene Lagunas | ECON | [address] | | | [place] | | [place], [place] | | | | | [address] | | + + + + + | Rickey Bui | ECON | [address] [place], [place] | | | | | [address] | | + + + + + Care Team Providers + +------+ + | Care Gymnastic Coach Name | Role | Phone | + +------+ + | Tayo Robles DO | PCP | | + +------+ + Reason for Visit +--------+ + | Reason | Comments | +--------+ + | Apnea | | +--------+ + Encounter Details +--------+---------+ + + + | Date | Type | Department | Care Team | Description | +--------+---------+ + + + | 12/27/ | Office | [facility] | Rickey Zaragoza PA | ABAD on CPAP (Primary | | 2012 | Visit | SLEEP DISORDER [address] | [address] | Dx) | | | | [address] | [place] | | | | | [place] [address] | [id number] | | | | | [phone] | | | +--------+---------+ + + + [...] + + + | Blood Pressure | 118/76 | 12/27/2012 10:32 AM | | | | | PDT | | + + + + + | Pulse | 78 | 12/27/2012 10:32 AM | | | | | PDT | | + + + + + | Temperature | - | - | | + + + + + | Respiratory Rate | 16 | 12/27/2012 10:32 AM | | | | | PDT | | + + + + + | Oxygen Saturation | - | - | | + + + + + | Inhaled Oxygen | - | - | | | Concentration | | | | + + + + + | Weight | 106.1 kg (233 lb | 12/27/2012 10:32 AM | | | | 12.8 oz) | PDT | | + + + + + | Height | - | - | | + + + + + | Body Mass Index | 28.09 | 07/13/2011 12:00 AM | | | | | PST | | + + + + + documented in this encounter Progress Notes Jacqueline Brooks - 12/27/2012 10:51 AM PDT 12/27/12 1000 Jules Depression Inventory-II Depression Score 11 - Minimal depression Insomnia Severity Index Insomnia Severity Index 17 [place] Sleepiness Scale Sitting and reading 2 Watching TV 1 Sitting, inactive in a public place (e.g. a theatre or a meeting) 0 As a passenger in a car for an hour without a break 1 Lying down to rest in the afternoon when circumstances permit 3 Sitting and talking to someone 1 Sitting quietly after a lunch without alcohol 1 In a car, while stopped for a few minutes in traffic 0 Total score 9 SF-36v2 Score PF 48.61 RP 37.26 BP 41.41 GH 50.55 VT 45.85 SF 51.4 RE 48.1 MH 50.1 PCS 42.58 MCS 51.29 Rickey Ac PA - 10:08 AM PDT Subjective: Patient ID: Prabhjot Bui is a 67 y.o. male. HPI last office visit was: 11/28/2011 date of polysomnography: 03/01/2004 AHI: 14.0 (35.3 during REM) O2%: 90% Machine type: ResMed S9 with full face mask obtained from: [employer] in [place] pressure is: 6-16 cm 95%: 12.1 cm maxium: 13.3 cm CPAP download shows CPAP useage # nights: 333/365 Average usage (all nights): 3:38 average usage (nights used): 4:00 AHI: 2.4 Prabhjot continues to do well with his CPAP compliance. He has struggled with his compliance d uring most of the last year. He is no longer having problems with bloating and he feels adilene t CPAP has helped him breathe through his nose a little better, but he is still a mouth jaden ther most of the time. He often has to sleep without his CPAP because of his congestion. I t was recommended that he see an ENT specialist, but he has not done this. He feels that if he were able to breathe through his nose more easily, he would be able to wear his CPAP mor e consistently. I have discussed the download and results of the paperwork in detail. He has declined in s everal categories, likely due to his more erratic use of his CPAP. The download shows that his sleep apnea is well controlled, with an AHI of 2.4. It also shows that his leaks are ve ry well controlled. Review of Systems Objective: Physical Exam Assessment: Problem # 1: OBSTRUCTIVE SLEEP APNEA (ICD-327.23) This is well controlled with CPAP. His CPAP compliance is going pretty well, but the times he is not using his CPAP is because of his congestion. Plan: He is to continue with CPAP indefinitely. I have recommended touching base with his home medical supply company twice per year to ensure that all medical supplies are satisfactory. I have also recommended that he see an ENT specialist for evaluation of his nasal passage. I will follow up again in 1 year, sooner prn. At that time we will reassess with all appro piate paperwork. Fifteen minutes were spent [id number], with the majority of time spent in counseling. Rickey Zaragoza PA-C Cc: Dr. Tayo Robles documented in this enco unter Plan of [...] SERVIN | | | | | | [address] | | | | | | | | +--------+---------+ + + + documented as of this encounter Visit Diagnoses + + | Diagnosis | + + | ABAD on CPAP - Primary Obstructive sleep apnea (adult) (pediatric) | + + documented in this encounter"
--- OUTSIDE RECORDS SUMMARY | ~2019-10-21 | XMS | Encounter Summary ---
Demographics + + + | Address | [address] | | | [place] [address] | + + + | Home Phone | | + + + | Preferred Language | Unknown | + + + | Marital Status | | + + + | Restorationism Affiliation | 1009 | + + + | Race | Unknown | + + + | Ethnic Group | Unknown | + + + Author + + + | Author | [facility] | | | and Jose Enriqueana | + + + | Organization | [facility] | | | and Jose Enriqueana | + + + | Address | Unknown | + + + | Phone | Unavailable | + + + Support + + + + + | Name | Relationship | Address | Phone | + + + + + | Sharlene Lagunas | ECON | [address] | | | [place] | | [place], [place] | | | | | [address] | | + + + + + | Rickey Bui | ECON | [address] [place], [place] | | | | | [address] | | + + + + + Care Team Providers + +------+ + | Care Shuttle Route Vehicle Operator Name | Role | Phone | + +------+ + | Tayo Robles DO | PCP | | + +------+ + Reason for Visit + + + | Reason | Comments | + + + | Device Check | Remote | + + + Encounter Details +--------+ + + + + | Date | Type | Department | Care Team | Description | +--------+ + + + + | 08/19/ | Orders Only | [facility] | Beata Dorado, | Tachycardia-bradycar | | 2013 | | [facility] | RN | pritesh syndrome (HCC) | | | | [address] | | (Primary Dx); | | | | [place] [address] [place] | | Cardiac pacemaker in | | | | [address] | | situ | | | | [phone] | | | +--------+ + + + [...] Description | +--------+---------+ + + + | 06/11/ | Office | Sleep Medicine | [place], Rickey D, PA | | | 2019 | Visit | | [address] | | | | | | [place] | | | | | | [address] | | | | | | | | +--------+---------+ + + + documented as of this encounter Procedures + +--------+ + + + | Procedure Name | Priori | Date/Time | Associated Diagnosis | Comments | | | ty | | | | + +--------+ + + + | DEVICE INTERROGATION | Routin | 07/15/2013 | | Results for this | | | e | 11:32 AM | Tachycardia-bradycar | procedure are in the | | | | PST | pritesh syndrome (HCC) | results section. | | | | | Cardiac pacemaker in | | | | | | situ | | + +--------+ + + + documented in this encounter Results Device Interrogation (07/15/2013 11:32 AM PST) + + + | Narrative | Performed At | + + + | Beata Fernandez | | | ANASTASIYA Dorado 07/15/2013 11:32 PATIENT NAME: Prabhjot Bui | | | : 1945: AGE: 67 y.o. Remote Pacemaker Evaluation | | | Report July 08, 2013 Reason for evaluation: routineIndication for | | | pacemaker:1. 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 Cardiac pacemaker in situ (V45.01) Device | | | Interrogation Remotely captured device data was reviewed for | | | pacemaker parameters, battery status, percentage of pacing and | | | significant arrhythmias. Heart rate histograms were evaluated for | | | adequate heart rate response and any alerts reviewed. Pacing lead | | | impedances were reviewed for any significant changes. Final pacing | | | outputs and programming parameters were reviewed. Settings Mode: AAIR | | | <=> DDDRAtrial Output: 1.5V @ 0.4msVentricular Output: 2.0V @ 0.4ms | | | Data Presenting rhythm is AP VS. AP 96%. BURSAR 16%. Heart rate | | | histograms appear appropriate. Battery status: satisfactory. Voltage: | | | 2.79 V. Estimated remaining longevity: 12 years. Lead impedances | | | appear within normal limits.Events noted since 05/28/13: 764 MS, | | | longest 27:27 minutes, total 0.5%. On anticoagulation. Device | | | function appears appropriate.Remote follow-up in [address] Maldonado | | | Conchis Moise MD has supervised and interpreted this remote. | | |impedances were reviewed for any significant changes. Final | | |pacing outputs and programming parameters were reviewed. | | | | | |Settings | | | | | |Mode: AAIR <=> DDDR | | |Atrial Output: 1.5V @ 0.4ms | | |Ventricular Output: 2.0V @ 0.4ms | | | | | |Data | | | | | |Presenting rhythm is AP VS. AP 96%. BURSAR 16%. Heart rate | | |histograms appear appropriate. | | |Battery status: satisfactory. Voltage: 2.79 V. Estimated | | |remaining longevity: 12 years. Lead impedances appear within | | |normal limits. | | |Events noted since 05/28/13: | | | 764 MS, longest 27:27 minutes, total 0.5%. On | | |anticoagulation. | | |Device function appears appropriate. | | |Remote follow-up in 3 months. | | |Dr. Joel Moise MD has supervised and interpreted this | | |remote. | | | | | | | | | | | + + + + + | Procedure Note | + + | Beata Dorado RN - 07/08/2013 3:44 PM PST Formatting of this note might be | | different from the original.PATIENT NAME: Prabhjot Bui : 1945: | | AGE: 67 y.o.Remote Pacemaker Evaluation ReportFebruary 2013Reason for evaluation: | | routineIndication for pacemaker:1. 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 Cardiac pacemaker in situ (V45.01) Device Interrogation | | Remotely captured device data was reviewed for pacemaker parameters, battery status, | | percentage of pacing and significant arrhythmias. Heart rate histograms were evaluated | | for adequate heart rate response and any alerts reviewed. Pacing lead impedances were | | reviewed for any significant changes. Final pacing outputs and programming parameters | | were reviewed.SettingsMode: AAIR <=> DDDRAtrial Output: 1.5V @ 0.4msVentricular Output: | | 2.0V @ 0.4msDataPresenting rhythm is AP VS. AP 96%. BURSAR 16%. Heart rate histograms | | appear appropriate. Battery status: satisfactory. Voltage: 2.79 V. Estimated remaining | | longevity: 12 years. Lead impedances appear within normal limits.Events noted since | | 05/28/13: 764 MS, longest 27:27 minutes, total 0.5%. On anticoagulation. Device | | function appears appropriate.Remote follow-up in 3 [address].Dr. Joel Moise MD has | | supervised and interpreted this remote. | |alerts reviewed. Pacing lead impedances were reviewed for any significant changes. Final pa cing outputs and programming parameters were reviewed. | | | |Settings | | | |Mode: AAIR <=> DDDR | |Atrial Output: 1.5V @ 0.4ms | |Ventricular Output: 2.0V @ 0.4ms | | | |Data | | | |Presenting rhythm is AP VS. AP 96%. BURSAR 16%. Heart rate histograms appear appropriate. | |Battery status: satisfactory. Voltage: 2.79 V. Estimated remaining longevity: 12 years. Le ad impedances appear within normal limits. | |Events noted since 05/28/13: | | 764 MS, longest 27:27 minutes, total 0.5%. On anticoagulation. | |Device function appears appropriate. | |Remote follow-up in 3 months. | |Dr. Joel Moise MD has supervised and interpreted this remote. | + + documented in this encounter Visit Diagnoses + + | Diagnosis | + + | Tachycardia-bradycardia syndrome (HCC) - Primary Sinoatrial node dysfunction | + + | Cardiac pacemaker in situ | + + documented in this encounter"
--- OUTSIDE RECORDS SUMMARY | ~2019-10-21 | XMS | Encounter Summary ---
Demographics + + + | Address | [address] | | | [place] [address] | + + + | Home Phone | | + + + | Preferred Language | Unknown | + + + | Marital Status | | + + + | Lutheran Affiliation | 1009 | + + + | Race | Unknown | + + + | Ethnic Group | Unknown | + + + Author + + + | Author | [facility] | | | and Jose Enriqueana | + + + | Organization | [facility] | | | and Jose Enriqueana | + + + | Address | Unknown | + + + | Phone | Unavailable | + + + Support + + + + + | Name | Relationship | Address | Phone | + + + + + | Sharlene Lagunas | ECON | [address] | | | [place] | | [address], [place] | | | | | [address] | | + + + + + | Rickey Bui | ECON | [address] [place], [place] | | | | | [address] | | + + + + + Care Team Providers + +------+ + | Care Material Handler 1St Shift Name | Role | Phone | + [...] Description | +--------+--------+ + + + | 04/15/ | Refill | [facility] | Joel Moise | Medication Refill | | 2019 | | [facility] | MD Conchis [address] [place] [address] | | | | | [address] | [place] [address] | | | | | [address] | [place] [address] | | | | | [address] | [phone] | | | | | [phone] | | | +--------+--------+ + + + [...]
--- OUTSIDE RECORDS SUMMARY | ~2019-10-21 | XMS | Encounter Summary ---
Demographics + + + | Address | [address] | | | [place] [address] | + + + | Home Phone | | + + + | Preferred Language | Unknown | + + + | Marital Status | | + + + | Sikhism Affiliation | 1009 | + + + | Race | Unknown | + + + | Ethnic Group | Unknown | + + + Author + + + | Author | [facility] | | | and Jose Enriqueana | + + + | Organization | [facility] | | | and Jose Enriqueana | + + + | Address | Unknown | + + + | Phone | Unavailable | + + + Support + + + + + | Name | Relationship | Address | Phone | + + + + + | Sharlene Lagunas | ECON | [address] | | | [place] | | [address], [place] | | | | | [address] | | + + + + + | Rickey Bui | ECON | [address] [place], [place] | | | | | [address] | | + + + + + Care Team Providers + +------+ + | Care Dba Developer Name | Role | Phone | + [...] 02/18/ | Implant | [facility] | Beata Dorado, | Sinoatrial node | | 2018 | Monitor | [facility] | RN | dysfunction (HCC) | | | | [address] | | (Primary Dx); | | | | [address] [place], [place] | | Cardiac pacemaker in | | | | [address] | | situ | | | | [phone] | | | +--------+ + + + [...] SERVIN | | | | | | [address] | | | | | | | | +--------+---------+ + + + documented as of this encounter Procedures + +--------+ + + + | Procedure Name | Priori | Date/Time | Associated Diagnosis | Comments | | | ty | | | | + +--------+ + + + | DEVICE | Routin | 02/18/2018 | Sinoatrial node | Results for this | | INTERROGATION- | e | 11:59 PM | dysfunction (HCC) | procedure are in the | | REMOTE | | PDT | Cardiac pacemaker in | results section. | | | | | situ | | + +--------+ + + + documented in this encounter Results Device Interrogation - Remote (02/18/2018 11:59 PM PDT) + + + | Narrative | Performed At | + + + | Beata Fernandez | [facility] | | ANASTASIYA Dorado 02/26/2018 9:47 PATIENT NAME: Prabhjot Lee | | | [place] : 1945: AGE: 72 y.o. Remote | | | Pacemaker Evaluation Report February 09, 2018 Reason for evaluation: | | | Pre-appointment remote received at 16:36 yesterday for appointment | | | this morningIndication for pacemaker: ICD-10-CM ICD-9-CM 1. | | | Sinoatrial node dysfunction (HCC) I49.5 427.81 Device Interrogation - | | | Remote 2. Cardiac pacemaker in situ Z95.0 V45.01 Device Interrogation | | | - Remote Remotely captured device data was reviewed [...] | programming parameters were reviewed. Settings Mode: VVIR, 70 | | | (130)Ventricular Output: 2.0V @ 0.4ms (adaptive) Data Presenting | | | rhythm is atrial fibrillation/flutter with regular CINDER PIT CRANE OPERATOR, ~78 bpm. CINDER PIT CRANE OPERATOR | | | 55.1%. Heart rate histogram appears somewhat broad with ~25% >110 | | | bpm (mostly sensed). Battery status: satisfactory. Voltage: 2.79 V. | | | Estimated remaining longevity: 8 years. Lead impedance appears | | | within normal limits.Events noted since 08/11/17: (seen previously) 2 | | | VHR, 10-46 seconds, both on 12/29/17. EGMs are atrial only showing | | | atrial flutter with intermittent fast VS, possibly periods of 1:1 | | | conduction although no ventricular EGM is available for review.Device | | | function appears appropriate. Remote follow-up per schedule. | | | Supervising and interpreting physician for this remote,Joel Balderrama | | | MD Jose Maria | | |Settings | | | | | |Mode: VVIR, 70 (130) | | |Ventricular Output: 2.0V @ 0.4ms (adaptive) | | | | | |Data | | | | | |Presenting rhythm is atrial fibrillation/flutter with regular CINDER PIT CRANE OPERATOR, | | |~78 bpm. CINDER PIT CRANE OPERATOR 55.1%. Heart rate histogram appears somewhat broad | | |with ~25% >110 bpm (mostly sensed). | | |Battery status: satisfactory. Voltage: 2.79 V. Estimated | | |remaining longevity: 8 years. Lead impedance appears within | | |normal limits. | | |Events noted since 08/11/17: | | | (seen previously) 2 VHR, 10-46 seconds, both on 12/29/17. EGMs | | |are atrial only showing atrial flutter with intermittent fast VS, | | |possibly periods of 1:1 conduction although no ventricular EGM is | | |available for review. | | |Device function appears appropriate. | | |Remote follow-up per schedule. | | | | | |Supervising and [...]
--- OUTSIDE RECORDS SUMMARY | ~2019-10-21 | XMS | Encounter Summary ---
Demographics + + + | Address | [address] | | | [place] [address] | + + + | Home Phone | | + + + | Preferred Language | Unknown | + + + | Marital Status | | + + + | Muslim Affiliation | 1009 | + + + | Race | Unknown | + + + | Ethnic Group | Unknown | + + + Author + + + | Author | [facility] | | | and Jose Enriqueana | + + + | Organization | [facility] | | | and Jose Enriqueana | + + + | Address | Unknown | + + + | Phone | Unavailable | + + + Support + + + + + | Name | Relationship | Address | Phone | + + + + + | Sharlene Lagunas | ECON | [address] | | | [place] | | [address], [place] | | | | | [address] | | + + + + + | Rickey Bui | ECON | [address] [place], [place] | | | | | [address] | | + + + + + Care Team Providers + +------+ + | Care Oracle Applications Analyst Name | Role | Phone | + [...] 11/18/ | Implant | [facility] | Luisa Martinez V, | Cardiac pacemaker in | | 2018 | Monitor | [facility] | Technologist | situ (Primary Dx); | | | | HI[address] | | Sinoatrial node | | | | [address] [address] [place] | | dysfunction (HCC) | | | | [address] | | | | | | [phone] | | | +--------+ + + + [...] SERVIN | | | | | | [address] | | | | | | | | +--------+---------+ + + + documented as of this encounter Procedures + +--------+ + + + | Procedure Name | Priori | Date/Time | Associated Diagnosis | Comments | | | ty | | | | + +--------+ + + + | DEVICE | Routin | 11/18/2017 | Sinoatrial node | Results for this | | INTERROGATION- | e | 11:59 PM | dysfunction (HCC) | procedure are in the | | REMOTE | | PDT | Cardiac pacemaker in | results section. | | | | | situ | | + +--------+ + + + documented in this encounter Results Device Interrogation - Remote (11/18/2017 11:59 PM PDT) + + + | Narrative | Performed At | + + + | Luisa Martinez V, | [facility] | | Technologist 11/18/2017 21:23 PATIENT NAME: Prabhjot Lee | | | [place] : 1945: AGE: 71 y.o. Remote | | | Pacemaker Evaluation Report October 11, 2017 Reason for evaluation: | | | [...] VVIR, 70 | | | (130)Ventricular Output: 2V @ 0.4ms Data Presenting rhythm is SCIENTIFIC AIDE/VS. | | | SCIENTIFIC AIDE 56.7%. Patient is on anticoagulant. Heart rate histograms | | | appear appropriate. Battery status: satisfactory. Voltage: 2.79 V. | | | Estimated remaining longevity: 8.5 years. Lead impedance appears | | | [...] VVIR, 70 (130) | | |Ventricular Output: 2V @ 0.4ms | | | | | |Data | | | | | |Presenting rhythm is SCIENTIFIC AIDE/VS. SCIENTIFIC AIDE 56.7%. Patient is on | | |anticoagulant. Heart rate histograms appear appropriate. | | |Battery status: satisfactory. Voltage: 2.79 V. Estimated | | |remaining longevity: 8.5 years. Lead impedance appears within | | [...]
--- OUTSIDE RECORDS SUMMARY | ~2019-10-21 | XMS | Encounter Summary ---
Demographics + + + | Address | [address] | | | [place] [address] | + + + | Home Phone [...] | Author | [facility] | | | and Jose Enriqueana | + + + | Organization | [facility] | | | and Jose Enriqueana | + + + | Address | Unknown | + + + | Phone | Unavailable | + + + Support + + + + + | Name | Relationship | Address | Phone | + + + + + | Sharlene Lagunas | ECON | [address] | | | [place] | | [address], [place] | | | | | [address] | | + + + + + | Rickey Bui | ECON | [address] [place], [place] | | | | | [address] | | + + + + + Care Team Providers + +------+ + | Care Cheese Wrapper Name | Role | Phone | + +------+ + | Tayo Robles DO | PCP | | + +------+ + Encounter Details +--------+ + + + + | Date | Type | Department | Care Team | Description | +--------+ + + + + | 08/23/ | Imaging | [facility] | Provider, | | | 2018 | Exam | [facility] | MD [address] | | | | | IMAGING [address] | | | | | [address] [place] | [place] [address] | | | | | [place] [address] | | | | | | [phone] | | | +--------+ + + + [...] 2020 | Visit | | [address] | | | | | | [place] | | | | | | [address] | | | | | | | | +--------+---------+ + + + documented as of this encounter Procedures + +--------+ + + + | Procedure Name | Priori | Date/Time | Associated Diagnosis | Comments | | | ty | | | | + +--------+ + + + | ECHO COMPLETE | Routin | 01/20/2016 | | Results for this | | | e | 12:50 PM | | procedure are in the | | | | PDT | | results section. | + +--------+ + + + documented in this encounter Results ECHO Complete (01/20/2016 12:50 PM PDT) + + | Specimen | + + | | + + + + + | Narrative | Performed At | + + + | External films for comparison only - no result from [place]. | [facility] | + + + + +---------+ + + | Performing | Address | City/State/Zipcode | Phone Number | | Organization | | | | + +---------+ + + | [facility] | | | | + +---------+ + + documented in this encounter Visit Diagnoses Not on filedocumented in this encounter"
--- OUTSIDE RECORDS SUMMARY | ~2019-10-21 | XMS | Encounter Summary ---
Demographics + + + | Address | [address] | | | [place] [address] | + + + | Home Phone | | + + + | Preferred Language | Unknown | + + + | Marital Status | | + + + | Scientologist Affiliation | 1009 | + + + | Race | Unknown | + + + | Ethnic Group | Unknown | + + + Author + + + | Author | [facility] | | | and Jose Enriqueana | + + + | Organization | [facility] | | | and Jose Enriqueana | + + + | Address | Unknown | + + + | Phone | Unavailable | + + + Support + + + + + | Name | Relationship | Address | Phone | + + + + + | Sharlene Lagunas | ECON | [address] | | | [place] | | [address], [place] | | | | | [address] | | + + + + + | Rickey Bui | ECON | [address] [place], [place] | | | | | [address] | | + + + + + Care Team Providers + +------+ + | Care Skid Strapper Name | Role | Phone | + [...] Dx); | | | | [address] [place], [place] | | Cardiac pacemaker in | | | | [address] | | situ | | | | [phone] | | | +--------+ + + + [...] SERVIN | | | | | | [address] | | | | | | | [...] Performed At | + + + | Damarsi Tolbert | ASHLEY | | ANASTASIYA Preciado 08/18/2019 12:26 PM PATIENT NAME: Prabhjot Lee | | | [facility] : 1945: AGE: 73 y.o. Remote | [...] | | rhythm is atrial flutter with WIND OPERATIONS MANAGER/VS, ~78 bpm. WIND OPERATIONS MANAGER 72.8%. Heart rate | | | histogram [...] | |Presenting rhythm is atrial flutter with WIND OPERATIONS MANAGER/VS, ~78 bpm. WIND OPERATIONS MANAGER | | |72.8%. Heart rate histogram appears [...]
--- OUTSIDE RECORDS SUMMARY | ~2019-10-21 | XMS | Encounter Summary ---
Demographics + + + | Address | [address] | | | [place] [address] | + + + | Home Phone | | + + + | Preferred Language | Unknown | + + + | Marital Status | | + + + | Quaker Affiliation | 1009 | + + + | Race | Unknown | + + + | Ethnic Group | Unknown | + + + Author + + + | Author | [facility] | | | and Jose Enriqueana | + + + | Organization | [facility] | | | and Jose Enriqueana | + + + | Address | Unknown | + + + | Phone | Unavailable | + + + Support + + + + + | Name | Relationship | Address | Phone | + + + + + | Sharlene Lagunas | ECON | [address] | | | [place] | | [address], [place] | | | | | [address] | | + + + + + | Rickey Bui | ECON | [address] [place], [place] | | | | | [address] | | + + + + + Care Team Providers + +------+ + | Care Precision Assembler Bench Name | Role | Phone | + [...] Dx); | | | | [address] [place], [place] | | Cardiac pacemaker in | | | | [address] | | situ | | | | [phone] | | | +--------+ + + + [...] | | | | | [place] | | | | | | [id number] | | | | | | | [...] atrial | | | fibrillation/flutter with irregular PUBLICATION MANAGER/VS, ~96 bpm. PUBLICATION MANAGER 54.8%. | | | Heart rate histogram [...] is atrial fibrillation/flutter with irregular | | |PUBLICATION MANAGER/VS, ~96 bpm. PUBLICATION MANAGER 54.8%. Heart rate histogram appears somewhat | [...]
--- OUTSIDE RECORDS SUMMARY | ~2019-10-21 | XMS | Encounter Summary ---
Demographics + + + | Address | [address] | | | [place] [address] | + + + | Home Phone | | + + + | Preferred Language | Unknown | + + + | Marital Status | | + + + | Adventism Affiliation | 1009 | + + + | Race | Unknown | + + + | Ethnic Group | Unknown | + + + Author + + + | Author | [facility] | | | and Jose Enriqueana | + + + | Organization | [facility] | | | and Jose Enriqueana | + + + | Address | Unknown | + + + | Phone | Unavailable | + + + Support + + + + + | Name | Relationship | Address | Phone | + + + + + | Sharlene Lagunas | ECON | [address] | | | [place] | | [address], [place] | | | | | [address] | | + + + + + | Rickey Bui | ECON | [address] [place], [place] | | | | | [address] | | + + + + + Care Team Providers + +------+ + | Care Icd 9 Coder Name | Role | Phone | + +------+ + | Tayo Robles DO | PCP | | + +------+ + Reason for Visit + + + | Reason | Comments | + + + | Records Request | | + + + Encounter Details +--------+ + + + + | Date | Type | Department | Care Team | Description | +--------+ + + + + | 05/23/ | Telephone | JENNIE SIDDIQUI | Joel Moise | Records Request | | 2013 | | [facility] | MD Conchis [address] [place] [address] | | | | | [address] | [place] [address] | | | | | [address] | [place] [address] | | | | | [address] | [phone] | | | | | [phone] | | | +--------+ + + + [...] 10/30/ | Office | Sleep Medicine | Stephen, Rickey D, PA | | | 2019 | Visit | | [address] | | | | | | [place] | | | | | | [address] | | | | | | | | +--------+---------+ + + + documented as of this encounter Visit Diagnoses Not on filedocumented in this encounter"
--- OUTSIDE RECORDS SUMMARY | ~2019-10-21 | XMS | Encounter Summary ---
Demographics + + + | Address | [address] | | | [place] [address] | + + + | Home Phone | | + + + | Preferred Language | Unknown | + + + | Marital Status | | + + + | Yarsanism Affiliation | 1009 | + + + | Race | Unknown | + + + | Ethnic Group | Unknown | + + + Author + + + | Author | [facility] | | | and Jose Enriqueana | + + + | Organization | [facility] | | | and Jose Enriqueana | + + + | Address | Unknown | + + + | Phone | Unavailable | + + + Support + + + + + | Name | Relationship | Address | Phone | + + + + + | Sharlene Lagunas | ECON | [address] | | | [place] | | [address], [place] | | | | | [address] | | + + + + + | Rickey Bui | ECON | [address] [place], [place] | | | | | [address] | | + + + + + Care Team Providers + +------+ + | Care Preparatory Technician Name | Role | Phone | + +------+ + | Tayo Robles DO | PCP | | + +------+ + Encounter Details +--------+ + + + + | Date | Type | Department | Care Team | Description | +--------+ + + + + | 10/15/ | Orders Only | JENNIE SIDDIQUI | Joel Moise | | | 2010 | | [facility] | MD [address]ch[address] | | | | | [address] | [address] | | | | | [facility] [address] [place] [address] | [place] [address] | | | | | [address] | [phone] | | | | | [phone] | | | +--------+ + + + [...] SERVIN | | | | | | [address] | | | | | | | | +--------+---------+ + + + documented as of this encounter Procedures + +--------+ + + + | Procedure Name | Priori | Date/Time | Associated Diagnosis | Comments | | | ty | | | | + +--------+ + + + | HISTORICAL LAB PANEL | Routin | 10/15/2010 | | Results for this | | RESULT | e | | | procedure are in the | | | | | | results section. | + +--------+ + + + documented in this encounter Results HISTORICAL LAB PANEL RESULT (10/15/2010) + +-------+ + + + | Component | Value | Ref Range | Performed | Pathologist | | | | | At | Signature | + +-------+ + + + | ALT | 27 | | EXTERNAL | | | | | | LAB | | + +-------+ + + + | AST | 25 | | EXTERNAL | | | | | | LAB | | + +-------+ + + + | Anion Gap | 7.3 | | EXTERNAL | | | | | | LAB | | + +-------+ + + + | B-TYPE | NULL | | EXTERNAL | | | NATRIURETIC | | | LAB | | | PEPTIDE | | | | | + +-------+ + + + | BUN | 12 | | EXTERNAL | | | | | | LAB | | + +-------+ + + + | Calcium | 9.2 | | EXTERNAL | | | | | | LAB | | + +-------+ + + + | Cholesterol | 124 | | EXTERNAL | | | | | | LAB | | + +-------+ + + + | Cl | 104 | | EXTERNAL | | | | | | LAB | | + +-------+ + + + | CO2 | 29 | | EXTERNAL | | | | | | LAB | | + +-------+ + + + | Creatinine | 0.87 | | EXTERNAL | | | | | | LAB | | + +-------+ + + + | Glucose | 103 | | EXTERNAL | | | | | | LAB | | + +-------+ + + + | HDL | 44 | | EXTERNAL | | | | | | LAB | | + +-------+ + + + | K | 4.3 | | EXTERNAL | | | | | | LAB | | + +-------+ + + + | LDL | 70 | | EXTERNAL | | | Cholesterol | | | LAB | | + +-------+ + + + | Na | 136 | | EXTERNAL | | | | | | LAB | | + +-------+ + + + | Triglycerid | 49 | | EXTERNAL | | | es | | | LAB | | + +-------+ + + + | TSH | | | EXTERNAL | | | | | | LAB | | + +-------+ + + + + + | Specimen | + + | | + + + +---------+ + + | Performing | Address | City/State/Zipcode | Phone Number | | Organization | | | | + +---------+ + + | EXTERNAL LAB | | | | + +---------+ + + documented in this encounter Visit Diagnoses Not on filedocumented in this encounter"
--- OUTSIDE RECORDS SUMMARY | ~2019-10-21 | XMS | Encounter Summary ---
Demographics + + + | Address | [address] | | | [place] [address] | + + + | Home Phone [...] + | Author | [facility] | | | and Jose Enriqueana | + + + | Organization | [facility] | | | and Jose Enriqueana | + + + | Address | Unknown | + + + | Phone | Unavailable | + + + Support + + + + + | Name | Relationship | Address | Phone | + + + + + | Sharlene Lagunas | ECON | [address] | | | [place] | | [address], [place] | | | | | [address] | | + + + + + | Rickey Bui | ECON | [address] [place], [place] | | | | | [address] | | + + + + + Care Team Providers + +------+ + | Care Saw Grinder Name | Role | Phone | [...] Description | +--------+--------+ + + + | 08/23/ | Refill | JENNIE SIDDIQUI | Joel Moise | Medication Refill | | 2018 | | [facility] | MD [address]ch[place] [address] [place] [address] | | | | | [facility] [address] | [facility] [address] | | | | | [place] [address] [place] [address] | [place] [address] | | | | | [address] | [phone] | | | | | [phone] | | | +--------+--------+ + + + [...] SERVIN | | | | | | [address] | | | | | | | | +--------+---------+ + + + documented as of this encounter Visit Diagnoses + + | Diagnosis | + + | Atrial fibrillation, unspecified type (HCC) - Primary | + + documented in this encounter"
--- OUTSIDE RECORDS SUMMARY | ~2019-10-21 | XMS | Encounter Summary ---
Demographics + + + | Address | [address] | | | [place] [address] | + + + | Home Phone | | + + + | Preferred Language | Unknown | + + + | Marital Status | | + + + | Shinto Affiliation | 1009 | + + + | Race | Unknown | + + + | Ethnic Group | Unknown | + + + Author + + + | Author | [facility] | | | and Jose Enriqueana | + + + | Organization | [facility] | | | and Jose Enriqueana | + + + | Address | Unknown | + + + | Phone | Unavailable | + + + Support + + + + + | Name | Relationship | Address | Phone | + + + + + | Sharlene Lagunas | ECON | [address] | | | [place] | | [address], [place] | | | | | [address] | | + + + + + | Rickey Bui | ECON | [address] [place], [place] | | | | | [address] | | + + + + + Care Team Providers + +------+ + | Care Electrician Constructor Supervisor Name | Role | Phone | + [...] | +--------+ + + + + | 10/01/ | Telephone | JENNIE SIDDIQUI | Joel Moise | Device Check | | 2019 | | [facility] | MD [address] | (Remote) | | | | [facility] [address] | [place] [address] | | | | | [place] [address] [place] [address] | [place] [address] | | | | | [address] | [phone] | | | | | [phone] | | | +--------+ + + + [...] SERVIN | | | | | | [address] | | | | | | | | +--------+---------+ + + + documented as of this encounter Visit Diagnoses Not on filedocumented in this encounter"
--- OUTSIDE RECORDS SUMMARY | ~2019-10-21 | XMS | Encounter Summary ---
Demographics + + + | Address | [address] | | | [place] [address] | + + + | Home Phone | | + + + | Preferred Language | Unknown | + + + | Marital Status | | + + + | Evangelical Affiliation | 1009 | + + + | Race | Unknown | + + + | Ethnic Group | Unknown | + + + Author + + + | Author | [facility] | | | and Jose Enriqueana | + + + | Organization | [facility] | | [...] [place], [place] | | | | | [address] | | + + + + + | Rickey Bui | ECON | [address] [place], [place] | | | | | [address] | | + + + + + Care Team Providers + +------+ + | Care Hybrid Tester Name | Role | Phone | + +------+ + | Tayo Robles DO | PCP | | + +------+ + Reason for Visit +--------+ + | Reason | Comments | +--------+ + | Cough | ? viral (pt also on Amiodarone, prob needs CXR) pt will call/see | | | pcp | +--------+ + Encounter Details +--------+ + + + + | Date | Type | Department | Care Team | Description | +--------+ + + + + | 06/05/ | Telephone | JENNIE SIDDIQUI | Ryann Vance | Cough (? viral (pt | | 2013 | | [facility] | Olivia RN | also on Amiodarone, | | | | [address] | | prob needs CXR) pt | | | | [address] [place] | | will call/see pcp) | | | | [address] | | | | | | [phone] | | | +--------+ + + + [...]
--- OUTSIDE RECORDS SUMMARY | ~2019-10-21 | XMS | Encounter Summary ---
Demographics + + + | Address | [address] | | | [place] [address] | + + + | Home Phone | | + + + | Preferred Language | Unknown | + + + | Marital Status | | + + + | Islam Affiliation | 1009 | + + + | Race | Unknown | + + + | Ethnic Group | Unknown | + + + Author + + + | Author | [facility] | | | and Jose Enriqueana | + + + | Organization | [facility] | | | and Jose Enriqueana | + + + | Address | Unknown | + + + | Phone | Unavailable | + + + Support + + + + + | Name | Relationship | Address | Phone | + + + + + | Sharlene Lagunas | ECON | [address] | | | [place] | | [place], [place] | | | | | [address] | | + + + + + | Rickey Bui | ECON | [address] [place], [place] | | | | | [address] | | + + + + + Care Team Providers + +------+ + | Care Piping Design Specialist Name | Role | Phone | + [...] Description | +--------+--------+ + + + | 02/25/ | Refill | JENNIE SIDDIQUI | Joel Moise | Medication Refill | | 2018 | | [facility] | MD [address] [place] [address] | | | | | [facility] [address] | [facility] [address] | | | | | [place] [address] [address] | [place] [address] | | | | | [address] | [phone] | | | | | [phone] | | | +--------+--------+ + + + [...] SERVIN | | | | | | [address] | | | | | | | | +--------+---------+ + + + documented as of this encounter Visit Diagnoses + + | Diagnosis | + + | Atrial fibrillation, unspecified type (HCC) - Primary | + + documented in this encounter"
--- OUTSIDE RECORDS SUMMARY | ~2019-10-21 | XMS | Encounter Summary ---
Demographics + + + | Address | [address] | | | [place] [address] | + + + | Home Phone | | + + + | Preferred Language | Unknown | + + + | Marital Status | | + + + | Jewish Affiliation | 1009 | + + + | Race | Unknown | + + + | Ethnic Group | Unknown | + + + Author + + + | Author | [facility] | | | and Jose Enriqueana | + + + | Organization | [facility] [...] [address] | | | [place] | | [address], [place] | | | | | [address] | | + + + + + | Rickey Bui | ECON | [address] [place], [place] | | | | | [address] | | + + + + + Care Team Providers + +------+ + | Care Retail Inventory Control Clerk Name | Role | Phone | + +------+ + | Luna Larson | PCP | | | PA | | | + +------+ + Reason for Visit + + + | Reason | Comments | + + + | Appointment | | + + + Encounter Details +--------+ + + + + | Date | Type | Department | Care Team | Description | +--------+ + + + + | 08/12/ | Telephone | JENNIE SIDDIQUI | Joel Moise | Appointment | | 2020 | | [facility]ARD[facility]OLOGY [facility] | MD Conchis [address] [place] [address] | | | | | [facility] [address] | [address] [facility] [address] | | | | | [place] [address] [place] [address] | [place] [address] | | | | | [address] | [phone] | | | | | [phone] | | | +--------+ + + + [...] SERVIN | | | | | | [address] | | | | | | | | +--------+---------+ + + + documented as of this encounter Visit Diagnoses Not on filedocumented in this encounter"
--- OUTSIDE RECORDS SUMMARY | ~2019-10-21 | XMS | Encounter Summary ---
Demographics + + + | Address | [address] | | | [place] [address] | + + + | Home Phone | | + + + | Preferred Language | Unknown | + + + | Marital Status | | + + + | Sabianism Affiliation | 1009 | + + + | Race | Unknown | + + + | Ethnic Group | Unknown | + + + Author + + + | Author | [facility] | | | and Jose Enriqueana | + + + | Organization | [facility] | | | and Jose Enriqueana | + + + | Address | Unknown | + + + | Phone | Unavailable | + + + Support + + + + + | Name | Relationship | Address | Phone | + + + + + | Sharlene Lagunas | ECON | [address] | | | [place] | | [place], [place] | | | | | [address] | | + + + + + | Rickey Bui | ECON | [address] [place], [place] | | | | | [address] | | + + + + + Care Team Providers + +------+ + | Care Bog Cutter Name | Role | Phone | + +------+ + | Tayo Robles DO | [place] | | + +------+ + Encounter Details +--------+ + + + + | Date | Type | Department | Care Team | Description | +--------+ + + + + | 12/10/ | Orders Only | JENNIE SIDDIQUI | Austyn Antony, | Encounter for | | 2013 | | [facility] [place] | BILLBOARD POSTER | long-term (current) | | | | [address] | | use of other | | | | [address] [place] | | medications (Primary | | | | [address] | | Dx); Atrial | | | | [phone] | | fibrillation/atrial | | | | | | flutter | +--------+ + + + + Social [...] 2019 | Visit | | [address] | | | | | | [place] | | | | | | [address] | | | | | | | | +--------+---------+ + + + + +---------+--------+ + + | Name | Type | Priori | Associated Diagnoses | Order Schedule | | | | ty | | | + +---------+--------+ + + | XR Chest PA and | Imaging | Routin | Encounter for | Expected: 06/12/2014 | | Lateral | | e | long-term (current) | (Approximate), | | | | | use of other | Expires: 12/10/2014 | | | | | medications | | + +---------+--------+ + + documented as of this encounter Procedures + +--------+ + + + | Procedure Name | Priori | Date/Time | Associated Diagnosis | Comments | | | ty | | | | + +--------+ + + + | XR CHEST PA AND | Routin | 12/10/2013 | Encounter for | Results for this | | LATERAL | e | 9:07 AM | long-term (current) | procedure are in the | | | | PDT | use of other | results section. | | | | | medications | | + +--------+ + + + | XR CHEST PA AND | Routin | 12/10/2013 | Atrial | Results for this | | LATERAL | e | 9:06 AM | fibrillation/atrial | procedure are in the | | | | PDT | flutter | results section. | + +--------+ + + + | XR CHEST PA AND | Routin | 12/10/2013 | Encounter for | Results for this | | LATERAL | e | 9:04 AM | long-term (current) | procedure are in the | | | | PDT | use of other | results section. | | | | | medications | | + +--------+ + + + documented in this encounter Results XR Chest PA and Lateral (12/10/2013 9:07 AM PDT) + + + | Impressions | Performed At | + + + | Results not interfaced with Epic. Please see scanned report in | [facility] | | Media tab. No Amiodarone effects noted per ANASTASIYA Wong , dany in | [place] - | | 6 months. See Phone note | [facility] | + + + + + + + + | Performing | Address | City/State/Zipcode | Phone Number | | Organization | | | | + + + + + | [facility] | [facility] [address] | [place] [address] | [phone] | | - [facility] | [place] | | | + + + + + XR Chest PA and Lateral (12/10/2013 9:06 AM PDT) + + + | Impressions | Performed At | + + + | Results not interfaced with [employer]. Please see scanned report in | [facility] | | Media tab. No Amiodarone effects noted per ANASTASIYA Wong , dany in | [place] - | | 6 months. See Phone note | [facility] | + + + + + + + + | Performing | Address | City/State/Zipcode | Phone Number | | Organization | | | | + + + + + | [place] [facility] | [facility] [address] | [place] [address] | [phone] | | - [facility] | [place] | | | + + + + + XR Chest PA and Lateral (12/10/2013 9:04 AM PDT) + + + | Impressions | Performed At | + + + | Results not interfaced with [employer]. Please see scanned report in | [place] | | Media tab. No Amiodarone effects noted per ANASTASIYA Wong , dany in | [place] - | | 6 months. See Phone note | [facility] | + + + + + + + + | Performing | Address | City/State/Zipcode | Phone Number | | Organization | | | | + + + + + | [place] [facility] | [facility] [address] | [place] [address] | [phone] | | - [facility] | [place] | | | + + + + + documented in this encounter Visit Diagnoses + + | Diagnosis | + + | Encounter for long-term (current) use of other medications - Primary | + + | Atrial fibrillation/atrial flutter Atrial fibrillation | + + documented in this encounter"
--- OUTSIDE RECORDS SUMMARY | ~2019-10-21 | XMS | Encounter Summary ---
Demographics + + + | Address | [address] | | | [place] [address] | + + + | Home Phone | | + + + | Preferred Language | Unknown | + + + | Marital Status | | + + + | Lutheran Affiliation | 1009 | + + + | Race | Unknown | + + + | Ethnic Group | Unknown | + + + Author + + + | Author | [facility] | | | and Jose Enriqueana | + + + | Organization | [facility] | | | and Jose Enriqueana | + + + | Address | Unknown | + + + | Phone | Unavailable | + + + Support + + + + + | Name | Relationship | Address | Phone | + + + + + | Sharlene Lagunas | ECON | [address] | | | [place] | | [place], [place] | | | | | [address] | | + + + + + | Rickey Bui | ECON | [address] [place], [place] | | | | | [address] | | + + + + + Care Team Providers + +------+ + | Care Switchboard And Control Room Operator Name | Role | Phone | + +------+ + | Luna Larson | PCP | | | PA | | | + +------+ + Reason for Visit + + + | Reason | Comments | + + + | Device Check | Billed (due 07/2019) | | (In-office) | | + + + Encounter Details +--------+ + + + + | Date | Type | Department | Care Team | Description | +--------+ + + + + | 08/15/ | Procedure | [facility] | | Fitting and | | 2018 | visit | [facility] | | adjustment of | | | | [address] | | cardiac pacemaker | | | | [place] [address] [place], [place] | | (Primary Dx); | | | | [address] | | Sinoatrial node | | | | [phone] | | dysfunction ([facility]) | +--------+ + + + + Social [...] SERVIN | | | | | | [id number] | | | | | | | | +--------+---------+ + + + documented as of this encounter Procedures + +--------+ + + + | Procedure Name | Priori | Date/Time | Associated Diagnosis | Comments | | | ty | | | | + +--------+ + + + | DEVICE INTERROGATION | Routin | 09/04/2018 | Fitting and | Results for this | | | e | 12:00 AM | adjustment of | procedure are in the | | | | PDT | cardiac pacemaker | results section. | | | | | Sinoatrial node | | | | | | dysfunction (HCC) | | + +--------+ + + + documented in this encounter Results Device Interrogation (09/04/2018 12:00 AM PDT) + + + | Narrative | Performed At | + + + | Bl[facility] RAMIREZ | | Delio, Technologist 09/03/2018 11:44PATIENT NAME: Prabhjot | | | Jesus Hao : 1945: AGE: 72 | | | y.o.Pacemaker Programming Report August 15, 2018 Reason for | | | programming: routineIndication for pacemaker: ICD-10-CM ICD-9-CM | | | 1. Fitting and adjustment of cardiac pacemaker Z45.018 V53.31 Device | | | Interrogation 2. Sinoatrial node dysfunction (HCC) I49.5 427.81 | | | Device Interrogation Patient was seated and device was programmed. | | | Pacemaker parameters, battery status, [...] | | | performed by decreasing LRL. Adequacy of pacing thresholds were tested | | | by increasing LRL for each lead and recorded for loss of capture. | | | Final outputs were assessed for adequate safety margins. Please see | | | the attached [facility] report. Supervising and interpreting provider for | | | this device check,Joel Moise MD | | |parameters, battery status, percentages pacing and significant | | |arrhythmias were reviewed. Heart rate histograms were assessed | | |for adequate heart rate response and any alerts reviewed. | | |Appropriate lead impedance testing was performed. Pacing | | |impedances were reviewed for any significant changes. Sensing | | |tests were performed by decreasing LRL. Adequacy of pacing | | |thresholds were tested by increasing LRL for each lead and | | |recorded for loss of capture. Final outputs were assessed for | | |adequate safety margins. | | | | | |Please see the attached [facility] report. | | | | | |Supervising and interpreting provider for this device check, | | |Joel Moise MD | | | | | + + + + + | Procedure Note | + + | Blaire Kebede, Technologist - 08/15/2018 11:00 AM PDT Formatting of this note | | might be different from the original.PATIENT NAME: Prabhjot Bui : | | 1945: AGE: 72 y.o.Pacemaker Programming ReportMarch 2018Reason for | | programming: routineIndication for pacemaker: ICD-10-CM ICD-9-CM 1. Fitting and | | adjustment of cardiac pacemaker Z45.018 V53.31 Device Interrogation 2. Sinoatrial node | | dysfunction (HCC) I49.5 427.81 Device Interrogation Patient was seated and device was | | programmed. Pacemaker parameters, battery status, percentages pacing and significant | | arrhythmias were reviewed. Heart rate histograms were assessed for adequate heart rate | | response and any alerts reviewed. Appropriate lead impedance testing was performed. | | Pacing impedances were reviewed for any significant changes. Sensing tests were | | performed by decreasing LRL. Adequacy of pacing thresholds were tested by increasing LRL | | for each lead and recorded for loss of capture. Final outputs were assessed for | | adequate safety margins.Please see the attached [facility] report.Supervising and | | interpreting provider for this device check,Joel Moise MD | |2. Sinoatrial node dysfunction ([facility]) I49.5 427.81 Device Interrogation | | | | | |Patient was seated and device was programmed. Pacemaker parameters, battery status, percent ages pacing and significant arrhythmias were reviewed. Heart rate histograms were assessed f or adequate heart rate | |response and any alerts reviewed. Appropriate lead impedance testing was performed. Pacing impedances were reviewed for any significant changes. Sensing tests were performed by decrea sing LRL. Adequacy of pacing | |thresholds were tested by increasing LRL for each lead and recorded for loss of capture. Fi nal outputs were assessed for adequate safety margins. | | | |Please see the attached [facility] report. | | | |Supervising and interpreting provider for this device check, | |Joel Moise MD | + + + +---------+ + + | Performing | Address | City/State/Zipcode | Phone Number | | Organization | | | | + +---------+ + + | [facility] | | | | + +---------+ + + documented in this encounter Visit Diagnoses + + | Diagnosis | + + | Fitting and adjustment of cardiac pacemaker - Primary | + + | Sinoatrial node dysfunction (HCC) Sinoatrial node dysfunction | + + documented in this encounter"
--- OUTSIDE RECORDS SUMMARY | ~2019-10-21 | XMS | Encounter Summary ---
Demographics + + + | Address | [address] | | | [place] [address] | + + + | Home Phone [...] + | Author | [facility] | | | and Jose Enriqueana | + + + | Organization | [facility] [...] [address] | | | [place] | | [place], [place] | | | | | [address] | | + + + + + | Rickey Bui | ECON | [address] [place], [place] | | | | | [address] | | + + + + + Care Team Providers + +------+ + | Care Manager Paper Name | Role | Phone | + +------+ + PCP | Unavailable | + +------+ + Encounter Details +--------+ + + + + | Date | Type | Department | Care Team | Description | +--------+ + + + + | 03/18/ | Hospital | [facility] | | | | 1998 | Encounter | MED CTR XRAY [address] | | | | | | [place] | | | | | | [place] [address] | | | | | | [phone] | | | +--------+ + + + [...] SERVIN | | | | | | [address] | | | | | | | | +--------+---------+ + + + documented as of this encounter Visit Diagnoses Not on filedocumented in this encounter"
--- OUTSIDE RECORDS SUMMARY | ~2019-10-21 | XMS | Encounter Summary ---
Demographics + + + | Address | [address] | | | [place] [address] | + + + | Home Phone [...] | Author | [facility] | | | and Jose Enriqueana | + + + | Organization | [facility] | | | and Jose Enriqueana | + + + | Address | Unknown | + + + | Phone | Unavailable | + + + Support + + + + + | Name | Relationship | Address | Phone | + + + + + | Sharlene Lagunas | ECON | [address] | | | [address] | | [place], [place] | | | | | [address] | | + + + + + | Rickey Bui | ECON | [address] [place], [place] | | | | | [address] | | + + + + + Care Team Providers + +------+ + | Care Water Chemist Name | Role | Phone | + +------+ + PCP | Unavailable | + +------+ + Encounter Details +--------+ + + + + | Date | Type | Department | Care Team | Description | +--------+ + + + + | 09/15/ | Hospital | [facility] | | | | 1993 | Encounter | MED CTR XRAY [address] | | | | | | [place] | | | | | | [place] [address] | | | | | | [phone] | | | +--------+ + + + [...] SERVIN | | | | | | [address] | | | | | | | | +--------+---------+ + + + documented as of this encounter Visit Diagnoses Not on filedocumented in this encounter"
--- OUTSIDE RECORDS SUMMARY | ~2019-10-21 | XMS | Encounter Summary ---
Demographics + + + | Address | [address] | | | [place] [address] | + + + | Home Phone [...] + | Author | [facility] | | | and Jose Enriqueana | + + + | Organization | [facility] | | | and Jose Enriqueana | + + + | Address | Unknown | + + + | Phone | Unavailable | + + + Support + + + + + | Name | Relationship | Address | Phone | + + + + + | Sharlene Lagunas | ECON | [address] | | | [address] | | [address], [place] | | | | | [address] | | + + + + + | Rickey Bui | ECON | [address] [place], [place] | | | | | [address] | | + + + + + Care Team Providers + +------+ + | Care Livestock Exhibitor Name | Role | Phone | + +------+ + PCP | Unavailable | + +------+ + Encounter Details +--------+ + + + + | Date | Type | Department | Care Team | Description | +--------+ + + + + | 09/01/ | Hospital | [facility] | NO, OUTOFAREAPCP | | | 2008 - | Encounter | [facility] | | | | | | GENERIC OP CONV DEPT | | | | 10/30/ | | [address] | | | | 2008 | | [place], [place] | | | | | | [address] | | | | | | [phone] | | | +--------+ + + + [...] SERVIN | | | | | | [id number] | | | | | | | | +--------+---------+ + + + documented as of this encounter Visit Diagnoses Not on filedocumented in this encounter"
--- OUTSIDE RECORDS SUMMARY | ~2019-10-21 | XMS | Encounter Summary ---
Demographics + + + | Address | [address] | | | [place] [address] | + + + | Home Phone [...] + | Author | [facility] | | | and Jose Enriqueana | + + + | Organization | [facility] | | | and Jose Enriqueana | + + + | Address | Unknown | + + + | Phone | Unavailable | + + + Support + + + + + | Name | Relationship | Address | Phone | + + + + + | Sharlene Lagunas | ECON | [address] | | | [place] | | [address], [place] | | | | | [address] | | + + + + + | Rickey Bui | ECON | [address] [place], [place] | | | | | [address] | | + + + + + Care Team Providers + +------+ + | Care Cna Hospice Name | Role | Phone | + +------+ + | Tayo Robles DO | PCP | | + +------+ + Encounter Details +--------+ + + + + | Date | Type | Department | Care Team | Description | +--------+ + + + + | 01/17/ | Orders Only | [facility] | Joel Moise | | | 2010 | | [facility] | MD [address] | | | | | [address] | [address] | | | | | [facility] [address] [address] | [place] [address] | | | | | [address] | [phone] | | | | | [phone] | | | +--------+ + + + [...] SERVIN | | | | | | [address] | | | | | | | | +--------+---------+ + + + documented as of this encounter Procedures + +--------+ + + + | Procedure Name | Priori | Date/Time | Associated Diagnosis | Comments | | | ty | | | | + +--------+ + + + | B TYPE NATRIURETIC | Routin | 01/17/2011 | | Results for this | | PEPTIDE | e | 3:15 PM | | procedure are in the | | | | PDT | | results section. | + +--------+ + + + | B TYPE NATRIURETIC | Routin | 01/17/2011 | | Results for this | | PEPTIDE | e | 3:15 PM | | procedure are in the | | | | PDT | | results section. | + +--------+ + + + documented in this encounter Results B Type Natriuretic Peptide (01/17/2011 3:15 PM PDT) + +---------+ + + + | Component | Value | Ref Range | Performed | Pathologist | | | | | At | Signature | + +---------+ + + + | BNP | 109 (H) | <100 pg/mL | [facility] | | + +---------+ + + + + + | Specimen | + + | | + + + + + + + | Performing | Address | City/State/Zipcode | Phone Number | | Organization | | | | + + + + + | [facility] | [address] | [place] [address] | | | [facility] | | | | | LABORATORY | | | | + + + + + | [facility] | | | | + + + + + B Type Natriuretic Peptide (01/17/2011 3:15 PM PDT) + +---------+ + + + | Component | Value | Ref Range | Performed | Pathologist | | | | | At | Signature | + +---------+ + + + | BNP | 109 (H) | <100 pg/mL | [facility] | | + +---------+ + + + + + | Specimen | + + | | + + + + + + + | Performing | Address | City/State/Zipcode | Phone Number | | Organization | | | | + + + + + | [facility]ESI[facility] | [address] | [place] [address] | | | [facility] | | | | | LABORATORY | | | | + + + + + | [facility] | | | | + + + + + documented in this encounter Visit Diagnoses Not on filedocumented in this encounter"
--- OUTSIDE RECORDS SUMMARY | ~2019-10-21 | XMS | Encounter Summary ---
Demographics + + + | Address | [address] | | | [place] [address] | + + + | Home Phone | | + + + | Preferred Language | Unknown | + + + | Marital Status | | + + + | Mu-Ism Affiliation | 1009 | + + + | Race | Unknown | + + + | Ethnic Group | Unknown | + + + Author + + + | Author | [facility] | | | and Jose Enriqueana | + + + | Organization | [facility] | | | and Jose [...] [place], [place] | | | | | [address] | | + + + + + | Rickey Bui | ECON | [address] [place], [place] | | | | | [address] | | + + + + + Care Team Providers + +------+ + | Care Clinical Specialist Medical Device Name | Role | Phone | + [...] + + | 10/24/ | Office | [facility] | Rickey Zaragoza PA | ABAD on CPAP (Primary | | 2019 | Visit | SLEEP DISORDER [address] | [address] | Dx) | | | | [address] | [place] | | | | | [place] [address] | [id number] | | | | | [phone] | | | +--------+---------+ + + + [...] in this encounter Progress Notes Teetee Jameson, Resource Program Teacher - 10/24/2018 2:30 PM PDTFormatting of this note might be d ifferent from the original. 10/24/18 1400 Jules Depression Inventory-II Depression Score 11 - Minimal depression Insomnia Severity Index Insomnia Severity Index 14 Bogart Sleepiness Scale 1. Sitting and reading 2 [...] 10 Mask type: full face mask DME: [place] in [place] pressure: 6-16 cm Median: 7.7 cm 95%: [...] Exam Assessment: Problem #1: OBSTRUCTIVE SLEEP APNEA (VZY30-O16.33) This is controlled with CPAP. His CPAP compliance is going well with his ResMed AirSense 1 0. He continues to have severe mask leak. Plan: 1. He is to continue with CPAP indefinitely. 2. He is to go to [place] to look at other full face mask options. 3. Touch base with medical supplier twice per year to ensure that all equipment is satisfa ctory. I will follow up again in 1 year, sooner prn. Fifteen minutes were spent [id number], wit h the majority of time spent in counseling. Rickey Zaragoza PA-C Cc: KENNETH Espitia documented in this enco unter Plan of Treatment +--------+---------+ + + + | Date | Type | Specialty | Care Team | Description | +--------+---------+ + + + | 10/30/ | Office | Sleep Medicine | Rickey Zaragoza PA | | | 2019 | Visit | | [address] | | | | | | [place] | | | | | | [address] | | | | | | | | +--------+---------+ + + + documented as of this encounter Visit Diagnoses + + | Diagnosis | + + | ABAD on CPAP - Primary Obstructive sleep apnea (adult) (pediatric) | + + documented in this encounter"
--- OUTSIDE RECORDS SUMMARY | ~2019-10-21 | XMS | Encounter Summary ---
Demographics + + + | Address | [address] | | | [place] [address] | + + + | Home Phone | | + + + | Preferred Language | Unknown | + + + | Marital Status | | + + + | Adventist Affiliation | 1009 | + + + | Race | Unknown | + + + | Ethnic Group | Unknown | + + + Author + + + | Author | [facility] | | | and Jose Enriqueana | + + + | Organization | [facility] | [...] [address] | | | [address] | | [address], [place] | | | | | [address] | | + + + + + | Rickey Bui | ECON | [address] [place], [place] | | | | | [address] | | + + + + + Care Team Providers + +------+ + | Care Flagger Name | Role | Phone | + [...] Description | +--------+--------+ + + + | 05/08/ | Refill | [facility] | Joel Moise | Medication Refill | | 2013 | | [facility]ARDIOLOGY [facility] | MD Conchis [address] [place] [address] | | | | | [facility] [address] | [facility] [address] | | | | | [place] [address] [place] [address] | [place] [address] | | | | | [address] | [phone] | | | | | [phone] | | | +--------+--------+ + + + [...]
--- OUTSIDE RECORDS SUMMARY | ~2019-10-21 | XMS | Encounter Summary ---
Demographics + + + | Address | [address] | | | [place] [address] | + + + | Home Phone | | + + + | Preferred Language | Unknown | + + + | Marital Status | | + + + | Tenriism Affiliation | 1009 | + + + | Race | Unknown | + + + | Ethnic Group | Unknown | + + + Author + + + | Author | [facility] | | | and Jose Enriqueana | + + + | Organization | [facility] | | | and Jose Enriqueana | + + + | Address | Unknown | + + + | Phone | Unavailable | + + + Support + + + + + | Name | Relationship | Address | Phone | + + + + + | Sharlene Lagunas | ECON | [address] | | | [place] | | [place], [place] | | | | | [address] | | + + + + + | Rickey Bui | ECON | [address] [place], [place] | | | | | [address] | | + + + + + Care Team Providers + +------+ + | Care Antique Finisher Name | Role | Phone | + [...] | fibrillation (HCC) | | | | [address] | [address] | (Primary Dx); | | | | [address] | [place] [address] | Pacemaker - | | | | [place], [place] | [phone] | Medtronic - [id number] | | | | [address] | | Adapta - Implanted | | | | [phone] | | 02/27/2012 DO NOT | | [...] cations and use supplements as desired See [facility] office / or we need to have [...] he has needed a change in his [place] Thyroid from 75 AM and 60 p.m. [...] Pulmonary vein isolation carried out at the [facility] on 09/01/01. Aortic insufficiency and aortic stenosis [...] SARAVIA; Laterality: N/A; Surgeon: Ty Arzola; Location: [facility] His family history includes Atrial Fibrillation [...] Medicine - Sports Medicine) KENNETH Givens (Physician Field Crop Technical Officer) Augusto Moise MD as Physician (Cardiology) documented [...]
--- OUTSIDE RECORDS SUMMARY | ~2019-10-21 | XMS | Encounter Summary ---
Demographics + + + | Address | [address] | | | [place] [address] | + + + | Home Phone | | + + + | Preferred Language | Unknown | + + + | Marital Status | | + + + | Anabaptism Affiliation | 1009 | + + + | Race | Unknown | + + + | Ethnic Group | Unknown | + + + Author + + + | Author | [facility] | | | and Jose Enriqueana | + + + | Organization | [facility] | | | and Jose Enriqueana | + + + | Address | Unknown | + + + | Phone | Unavailable | + + + Support + + + + + | Name | Relationship | Address | Phone | + + + + + | Sharlene Lagunas | ECON | [address] | | | [address] | | [place], [place] | | | | | [address] | | + + + + + | Rickey Bui | ECON | [address] [place], [place] | | | | | [address] | | + + + + + Care Team Providers + +------+ + | Care Freight Weigher Name | Role | Phone | + +------+ + PCP | Unavailable | + +------+ + Encounter Details +--------+ + + + + | Date | Type | Department | Care Team | Description | +--------+ + + + + | 09/08/ | Hospital | [facility] | | Unspecified Cardiac | | 2009 | Encounter | [address] | | Dysrhythmia | | | | [address] | | | | | | [place], [place] | | | | | | [address] | | | | | | [phone] | | | +--------+ + + + [...] 2019 | Visit | | [address] | | | | | | [place] | | | | | | [address] | | | | | | | | +--------+---------+ + + + documented as of this encounter Visit Diagnoses + + | Diagnosis | + + | Cardiac dysrhythmia, unspecified | + + documented in this encounter"
--- OUTSIDE RECORDS SUMMARY | ~2019-10-21 | XMS | Encounter Summary ---
Demographics + + + | Address | [address] | | | [place] [address] | + + + | Home Phone | | + + + | Preferred Language | Unknown | + + + | Marital Status | | + + + | Faith Affiliation | 1009 | + + + | Race | Unknown | + + + | Ethnic Group | Unknown | + + + Author + + + | Author | [facility] | | | and Jose Enriqueana | + + + | Organization | [facility] | | | and Jose Enriqueana | + + + | Address | Unknown | + + + | Phone | Unavailable | + + + Support + + + + + | Name | Relationship | Address | Phone | + + + + + | Sharlene Lagunas | ECON | [address] | | | [address] | | [address], [place] | | | | | [address] | | + + + + + | Rickey Bui | ECON | [address] [place], [place] | | | | | [address] | | + + + + + Care Team Providers + +------+ + | Care Web Operations Lead Name | Role | Phone | + +------+ + | Tayo Robles DO | PCP | | + +------+ + Encounter Details +--------+ + + + + | Date | Type | Department | Care Team | Description | +--------+ + + + + | 10/10/ | Orders Only | [facility] | Joel Moise | | | 2012 | | [facility] | MD [address] | | | | | [address] | [address] | | | | | [facility] [address] | [place] [address] | | | | | [address] | [phone] | | | | | [phone] | | | +--------+ + + + [...] SERVIN | | | | | | [address] | | | | | | | | +--------+---------+ + + + documented as of this encounter Procedures + +--------+ + + + | Procedure Name | Priori | Date/Time | Associated Diagnosis | Comments | | | ty | | | | + +--------+ + + + | HISTORICAL LAB PANEL | Routin | 03/06/2013 | | Results for this | | RESULT | e | | | procedure are in the | | | | | | results section. | + +--------+ + + + | HISTORICAL LAB PANEL | Routin | 02/28/2013 | | Results for this | | RESULT | e | | | procedure are in the | | | | | | results section. | + +--------+ + + + documented in this encounter Results HISTORICAL LAB PANEL RESULT (03/06/2013) + +-------+ + + + | Component | Value | Ref Range | Performed | Pathologist | | | | | At | Signature | + +-------+ + + + | INR | 2.9 | | EXTERNAL | | | | | | LAB | | + +-------+ + + + | Protime | | | EXTERNAL | | | [...] | | | + +---------+ + + HISTORICAL LAB PANEL RESULT (02/28/2013) + +-------+ + + + | Component | Value | Ref Range | Performed | Pathologist | | | | | At | Signature | + +-------+ + + + | Anion Gap | 10.2 | | EXTERNAL | | | | | | LAB | | + +-------+ + + + | B-TYPE | NULL | | EXTERNAL | | | NATRIURETIC | | | LAB | | | PEPTIDE | | | | | + +-------+ + + + | BUN | 16 | | EXTERNAL | | | | | | LAB | | + +-------+ + + + | Calcium | 9.3 | | EXTERNAL | | | | | | LAB | | + +-------+ + + + | Cl | 104 | | EXTERNAL | | | | | | LAB | | + +-------+ + + + | CO2 | 29 | | EXTERNAL | | | | | | LAB | | + +-------+ + + + | Creatinine | 1.03 | | EXTERNAL | | | | | | LAB | | + +-------+ + + + | GFR | >60 | | EXTERNAL | | | ESTIMATE | | | LAB | | | (REF) | | | | | + +-------+ + + + | Glucose | 98 | | EXTERNAL | | | | | | LAB | | + +-------+ + + + | K | 4.2 | | EXTERNAL | | | | | | LAB | | + +-------+ + + + | Na | 139 | | EXTERNAL | | | | | | LAB | | + +-------+ + + + | T3, Free | 3.45 | | EXTERNAL | | | | | | LAB | | + +-------+ + + + | T3, Total | 125.7 | | EXTERNAL | | | | | | LAB | | + +-------+ + + + | TSH | 0.095 | | EXTERNAL | | | | | | LAB | | + +-------+ + + + | T4, Total | 8.54 | | EXTERNAL | | | | [...]
--- OUTSIDE RECORDS SUMMARY | ~2019-10-21 | XMS | Encounter Summary ---
Demographics + + + | Address | [address] | | | [place] [address] | + + + | Home Phone | | + + + | Preferred Language | Unknown | + + + | Marital Status | | + + + | Episcopalian Affiliation | 1009 | + + + | Race | Unknown | + + + | Ethnic Group | Unknown | + + + Author + + + | Author | [facility] | | | and Jose Enriqueana | + + + | Organization | [facility] | | | and Jose Enriqueana | + + + | Address | Unknown | + + + | Phone | Unavailable | + + + Support + + + + + | Name | Relationship | Address | Phone | + + + + + | Sharlene Henriquez | ECON | [address] | | | [address] | | [address], [place] | | | | | [address] | | + + + + + | Rickey Castaneda | ECON | [address] [place], [place] | | | | | [address] | | + + + + + Care Team Providers + +------+ + | Care Disk Operator Name | Role | Phone | + +------+ + PCP | Unavailable | + +------+ + Encounter Details +--------+ + + + + | Date | Type | Department | Care Team | Description | +--------+ + + + + | 02/26/ | Hospital | [facility] | Joel Moise | | | 2011 - | Encounter | [facility] | MD [address] | | | | | CARDIAC TELEMETRY | [address] | | | 02/27/ | | [address] | [place] [address] | | | 2011 | | [place], [place] | [phone] | | | | | [address] | | | | | | [phone] | | | +--------+ + + + [...] + + documented as of this encounter Discharge Summaries Minnie Jernigan ARNP - 03/26/2013 6:13 PM PST PATIENT NAME: PRABHJOT CASTANEDA Sex/Age: M / 66Y : 1945 ADMISSION DATE: 02/27/2012 DISCHARGE DATE: 02/28/2012 [id number] / [id number] ADMISSION DIAGNOSIS: Paroxysmal atrial fibrillation and tachybrady syndrome. DISCHARGE DIAGNOSES: 1. Paroxysmal atrial fibrillation and tachybrady syndrome. a. Status post permanent pacema ker implantation. 2. History of hypertension. HOSPITAL COURSE: Mr. Castaneda is a 66-year-old gentleman who was found to have paroxys mal atrial fibrillation and tachybrady syndrome. He underwent permanent pacemaker implantat ion by Dr. Moise without complications. A Medtronic Adapta, serial #[id number] was implan adrián without complications. His wound site was without evidence of infection or hematoma. Yg henriquez was stable and ready for discharge today on . He has the following assessment at discharge: BP 130/65, heart rate 63, respiratory rate 1 8, afebrile. Weight 104.4 kg. DISPOSITION: The patient will be following up in one week's time with a wound site check a nd with Dr. Moise in approximately 4 to 6 weeks' time. He was recommended permanent pace maker precautions. He will have a PT INR drawn this Monday. DISCHARGE MEDICATIONS: 1. Coumadin 7.5 mg today, 7.5 mg Monday, then back to his usual 5 mg daily. 2. No Lovenox at discharge. 3. Rythmol 150 mg p.o. q 12 hours. 4. [place] Thyroid dose as at home. 5. Toprol-XL 50 mg once daily. 6. Hydrocodone as needed. 7. Digoxin 0.125 mg once daily. 8. Catapres 0.2 mg twice daily. 9. Keflex 500 mg p.o. q.i.d. for four additional doses. 10. Atacand 16 mg once daily. 11. Paxton-3 fatty acids once daily. 12. Dilantin 100 mg daily as at home. 13. Delfen 15 mg daily. DARRIUS CASTANEDAAnita Crawford ADM:02/27/12 [id number] 02/28/12 DIS Sean DISCHARGE SUMMARY [id number] [facility] HIEN [facility] MD Antonio Cadena THIS REPORT IS CONFIDENTIAL AND NOT TO BE RELEASED WITHOUT PROPER AUTHORIZATION. [facility] HIEN Moralez MD P A CR/dls #[id number] cc: MD Minnie Maurer ARNP xc: Dr. Tayo Robles Electronically Signed 02/29/12 1412 HIEN Adler Electronically Signed 04/09/12 2244 Joel Moise MD PRABHJOT CASTANEDA ADM:02/27/12 [id number] 02/28/12 DIS Sean DISCHARGE SUMMARY [id number] [facility] HIEN [facility] MD Antonio Cadena THIS REPORT IS CONFIDENTIAL AND NOT TO BE RELEASED WITHOUT PROPER AUTHORIZATION.Electronica lly signed by Minnie Jernigan at 02/29/2012 2:12 PM PDTdocumented in this encounter Medications at Time of Discharge [...] + + + +---------+ + + | B Complex Vitamins | daily | | 0 | 02/03/20 | | | (B COMPLEX 50) TABS | | | | 12 | 4 | + + + +---------+ + + | candesartan | Take 16 mg by mouth | | 0 | 02/03/20 | | | (ATACAND) 16 mg | Daily. | | | 12 | 3 | | tablet | | | | | | + + + +---------+ + + | CHELATED MAGNESIUM | Take 100 mg by mouth | | 0 | 02/03/20 | | | 100 MG TABS | Daily. | | | 12 | 4 | + + + +---------+ + + | Cholecalciferol | three daily | | 0 | 02/03/20 | | | ([employer] VITAMIN D) 1999 | | | | 12 | 4 | | UNITS CAPS | | | | | | + + + +---------+ + + | CINNAMON PO | CAPS daily | | 0 | 02/03/20 | | | | | | | 12 | 3 | + + + +---------+ + + | clonidine | Take 0.2 mg by mouth | | 0 | 02/03/20 | | | (CATAPRES) 0.2 MG | 3 times daily. | | | 12 | 4 | | tablet | | | | | | + + + +---------+ + + | Coenzyme Q10 | Take 50 mg by mouth | | 0 | 02/03/20 | | | (COQ10) 50 MG CAPS | Daily. | | | 12 | 4 | + + + +---------+ + + | Cyanocobalamin | SUBL .5 units or .25 | | 0 | 02/03/20 | | | (B-12 SL) | twice a week | | | 12 | 4 | + + + +---------+ + + | Garlic 1000 MG | Take 1,000 mg by | | 0 | 02/03/20 | | | CAPS | mouth Daily. | | | 12 | 4 | + + + +---------+ + + | MAGNESIUM SULFATE | SOLN twice weekly | | 0 | 02/03/20 | | | IN D5W IV | | | | 12 | 4 | + + + +---------+ + + | metoprolol | Take 75 mg by mouth | | 0 | 02/03/20 | | | succinate (TOPROL | Daily. | | | 12 | 4 | | XL) 50 mg 24 hr | | | | | | | tablet | | | | | | + + + +---------+ + + | metoprolol | Take 50 mg by mouth | | 0 | 02/03/20 | | | succinate (TOPROL | Daily. | | | 12 | 4 | | XL) 50 mg 24 hr | | | | | | | tablet | | | | | | + + + +---------+ + + | Misc Natural | daily | | 0 | 02/03/20 | | | Products (RED WINE | | | | 12 | 3 | | EXTRACT PLUS) CAPS | | | | | | + + + +---------+ + + | [place], | CAPS four daily | | 0 | 02/03/20 | | | Serenoa repens, (SAW | | | | 12 | 4 | | PALMETTO PO) | | | | | | + + + +---------+ + + | TAURINE PO | CAPS eight daily | | 0 | 02/03/20 | | | | | | | 12 | 4 | + + + +---------+ + + | Testosterone | Twice a week. | | 0 | 02/03/20 | | | Cypionate | | | | 12 | 6 | | (DEPO-TESTOSTERONE | | | | | | | IM) | | | | | | + + + +---------+ + + | Testosterone | OIL three times a | | 0 | 02/03/20 | | | Cypionate | week | | | 12 | 4 | | (DEPO-TESTOSTERONE | | | | [...] thyroid (ARMOUR | Take 60 mg by mouth | | 0 | 02/03/20 | | | THYROID) 60 MG | 2 times daily. | | | 12 | 4 | | tablet | | | | | | + + + +---------+ + + | warfarin | 5 times a week | | 0 | 02/03/20 | | | (COUMADIN) 5 mg | | | | 12 | 4 | | tablet | | | | | | + + + +---------+ + + | warfarin | Take 7.5 mg by mouth | | 0 | 02/03/20 | | | (COUMADIN) 7.5 mg | Twice a week. | | | 12 | 4 | | tablet | | | | [...] SERVIN | | | | | | [id number] | | | | | | | | +--------+---------+ + + + documented as of this encounter Procedures + +--------+ + + + | Procedure Name | Priori | Date/Time | Associated Diagnosis | Comments | | | ty | | | | + +--------+ + + + | XR CHEST 2 VIEWS | | 02/28/2012 | | Results for this | | | | 9:00 AM | | procedure are in the | | | | PDT | | results section. | + +--------+ + + + | PROTIME INR | Routin | 02/28/2012 | | Results for this | | | e | 3:28 AM | | procedure are in the | | | | PDT | | results section. | + +--------+ + + + | XR CHEST 2 VIEWS | | 02/27/2012 | | Results for this | | | | 1:10 PM | | procedure are in the | | | | PDT | | results section. | + +--------+ + + + | CBC NO DIFFERENTIAL | Routin | 02/27/2012 | | Results for this | | | e | 9:38 AM | | procedure are in the | | | | PDT | | results section. | + +--------+ + + + | BASIC METABOLIC | Routin | 02/27/2012 | | Results for this | | PANEL | e | 9:38 AM | | procedure are in the | | | | PDT | | results section. | + +--------+ + + + | PROTIME INR | Routin | 02/27/2012 | | Results for this | | | e | 9:03 AM | | procedure are in the | | | | PDT | | results section. | + +--------+ + + + documented in this encounter Results XR Chest 2 VW (02/28/2012 9:00 AM PDT) + + | Specimen | + + | | + + + + + | Narrative | Performed At | + + + | Exam Performed Location: [facility] | MISCELANIOUS | | TWO VIEW CLINICAL INFORMATION: Post pacer exam COMPARISON: | LAB | | Chest x-ray 02/27/2012. FINDINGS: Left arm subclavian dual lead | | | pacer, right atrial and right ventricular septum leads unchanged. | | | PLEURAL SPACE: No pneumothorax. No effusion. LUNGS: No opacity or | | | nodule. Decreasing pulmonary venous engorgement normal. HEART: | | | Decreased heart size to normal. Prior sternotomy changes. | | | MEDIASTINUM /HILUM: Normal. SKELETON: Normal. IMPRESSION: | | | Pacer leads unchanged without complication. Resolved mild pulmonary | | | congestive appearance and mild cardiac enlargement seen previously. | | | S: SQ ([id number]) Signed by: MARK TORRES MD | | + + + + + | Procedure Note | + + | Ariel, Rad Conversion - 03/14/2013 5:19 AM PDT Exam Performed Location: [facility] | | at [facility] TWO VIEWCLINICAL INFORMATION:Post pacer examCOMPARISON:Chest x-ray | | 02/27/2012.FINDINGS:Left arm subclavian dual lead pacer, right atrial and | | rightventricular septum leads unchanged.PLEURAL SPACE: No pneumothorax. No | | effusion.LUNGS: No opacity or nodule.Decreasing pulmonary venous engorgement | | normal.HEART: Decreased heart size to normal. Prior sternotomy changes.MEDIASTINUM | | /HILUM: Normal.SKELETON: Normal.IMPRESSION:Pacer leads unchanged without | | complication.Resolved mild pulmonary congestive appearance and mild cardiacenlargement | | seen previously.S: SQ ([id number]) Signed by: MARK TORRES MD | | | |FINDINGS: | |Left arm subclavian dual lead pacer, right atrial and right | |ventricular septum leads unchanged. | |PLEURAL SPACE: No pneumothorax. No effusion. | |LUNGS: No opacity or nodule. | |Decreasing pulmonary venous engorgement normal. | |HEART: Decreased heart size to normal. Prior sternotomy changes. | |MEDIASTINUM /HILUM: Normal. | |SKELETON: Normal. | | | | | |IMPRESSION: | |Pacer leads unchanged without complication. | |Resolved mild pulmonary congestive appearance and mild cardiac | |enlargement seen previously. | | | | | | | | | | | |S: SQ ([id number]) Signed by: MARK TORRES MD | + + + +---------+ + + | Performing | Address | City/State/Zipcode | Phone Number | | Organization | | | | + +---------+ + + | M[facility]ANEOUS LAB | | | [phone] | + +---------+ + + | MISCELANIOUS LAB | | | [phone] | + +---------+ + + Protime INR (02/28/2012 3:28 AM PDT) + + + + + + | Component | Value | Ref Range | Performed | Pathologist | | | | | At | Signature | + + + + + + | Prothrombin | 13.1 | 10.9 - 14.8 sec | [facility] | | | Time | | | [facility] | | | | | | [facility] | | | | | | MEDICAL | | | | | | CENTER | | | | | | LABORATORY | | + + + + + + | INR | 1.0Comment: Usual oral | 0.9 - 1.2 | [facility] | | | | anticoagulant range: 2.0 | | [facility] | | | | to 3.0 High level | | HEART | | | | oral anticoagulant | | MEDICAL | | | | range: 2.5 to 3.5 | | CENTER | | | | | | LABORATORY | | + + + + + + + + | Specimen | + + | | + + + + + + + | Performing | Address | City/State/Zipcode | Phone Number | | Organization | | | | + + + + + | [facility] | [address] | [place] [address] | | | [facility] | | | | | LABORATORY | | | | + + + + + | [facility] | | | | [facility] | | | | | LABORATORY | | | | + + + + + XR Chest 2 VW (02/27/2012 1:10 PM PDT) + + | Specimen | + + | | + + + + + | Narrative | Performed At | + + + | Exam Performed Location: [facility] AND | MISCELANIOUS | | LATERAL CHEST CLINICAL INFORMATION: Post pacer exam at 1100. | LAB | | COMPARISON: None. FINDINGS: Two lead left subclavian pacemaker | | | with one lead terminating in the right atrial appendage and the | | | second lead in the right ventricular apex. Heart size is normal. | | | No focal consolidation, pleural effusion or pneumothorax. No | | | acute bony abnormality. No free air under the diaphragm. | | | IMPRESSION: Two lead pacemaker placement without pneumothorax. No | | | acute cardiopulmonary process. The radiologist has reviewed | | | the images and edited/approved the report. For interventional | | | procedures, the signing radiologist was present for the parmar portions | | | of the exam. S: SQ ([id number]) Signed by: BRADLEY STEPHENSON, | | | MD and C MONE RIVERS DO R5 | | + + + + + | Procedure Note | + + | Ariel, Rad Conversion - 03/14/2013 5:37 AM PDT Exam Performed Location: [facility] | | at [facility] AND LATERAL CHESTCLINICAL INFORMATION:Post pacer exam at | | 1100.COMPARISON:None.FINDINGS:Two lead left subclavian pacemaker with one lead | | terminating in theright atrial appendage and the second lead in the right | | ventricularapex. Heart size is normal. No focal consolidation, pleuraleffusion or | | pneumothorax. No acute bony abnormality. No free airunder the diaphragm.IMPRESSION:Two | | lead pacemaker placement without pneumothorax. No acutecardiopulmonary process.The | | radiologist has reviewed the images and edited/approvedthe report. For interventional | | procedures, the signingradiologist was present for the parmar portions of the exam.S: SQ | | ([id number]) Signed by: BRADLEY STEPHENSON MD and Ananya RIVERS DO R5 | |FINDINGS: | |Two lead left subclavian pacemaker with one lead terminating in the | |right atrial appendage and the second lead in the right ventricular | |apex. Heart size is normal. No focal consolidation, pleural | |effusion or pneumothorax. No acute bony abnormality. No free air | |under the diaphragm. | | | |IMPRESSION: | |Two lead pacemaker placement without pneumothorax. No acute | |cardiopulmonary process. | | | | | |The radiologist has reviewed the images and edited/approved | |the report. For interventional procedures, the signing | |radiologist was present for the parmar portions of the exam. | | | | | |S: SQ ([id number]) Signed by: BRADLEY STEPHENSON MD and Ananya RIVERS DO R5 | + + + +---------+ + + | Performing | Address | City/State/Zipcode | Phone Number | | Organization | | | | + +---------+ + + | M[facility]OUS LAB | | | [phone] | + +---------+ + + | MISCELANIOUS LAB | | | [phone] | + +---------+ + + CBC no Differential (02/27/2012 9:38 AM PDT) + +-------+ + + + | Component | Value | Ref Range | Performed | Pathologist | | | | | At | Signature | + +-------+ + + + | WBC | 5.9 | 3.8 - 11.0 K/uL | [facility] | | | | | | [facility] | | | | | | HE[facility] | | | | | | MEDICAL | | | | | | CENTER | | | | | | LABORATORY | | + +-------+ + + + | RBC | 4.93 | 4.20 - 5.70 | [facility] | | | | | M/uL | [facility] | | | | | | HEART | | | | | | MEDICAL | | | | | | CENTER | | | | | | LABORATORY | | + +-------+ + + + | Hemoglobin | 15.7 | 13.2 - 17.0 | [facility] | | | | | g/dL | [facility] | | | | | | HEART | | | | | | MEDICAL | | | | | | CENTER | | | | | | LABORATORY | | + +-------+ + + + | Hematocrit | 46.7 | 39.0 - 50.0 % | [facility] | | | | | | [facility] | | | | | | HEART | | | | | | MEDICAL | | | | | | CENTER | | | | | | LABORATORY | | + +-------+ + + + | MCV | 94.8 | 80.0 - 100.0 fL | [facility] | | | | | | [facility] | | | | | | HEART | | | | | | MEDICAL | | | | | | CENTER | | | | | | LABORATORY | | + +-------+ + + + | MCH | 32.0 | 27.0 - 34.0 pg | [facility] | | | | | | [facility] | | | | | | HE[facility] | | | | | | MEDICAL | | | | | | CENTER | | | | | | LABORATORY | | + +-------+ + + + | MCHC | 33.7 | 32.0 - 35.5 | [facility] | | | | | g/dL | [facility] | | | | | | HEART | | | | | | MEDICAL | | | | | | CENTER | | | | | | LABORATORY | | + +-------+ + + + | RDW-CV | 13.9 | 11.0 - 15.5 % | [facility] | | | | | | [facility] | | | | | | HEART | | | | | | MEDICAL | | | | | | CENTER | | | | | | LABORATORY | | + +-------+ + + + | Platelet | 181 | 150 - 400 K/uL | [facility] | | | Count | | | [facility] | | | | | | HEART | | | | | | MEDICAL | | | | | | CENTER | | | | | | LABORATORY | | + +-------+ + + + + + | Specimen | + + | | + + + + + + + | Performing | Address | City/State/Zipcode | Phone Number | | Organization | | | | + + + + + | [facility] | [address] | [place] [address] | | | [facility] | | | | | LABORATORY | | | | + + + + + | [facility] | | | | | [facility] | | | | | LABORATORY | | | | + + + + + Basic Metabolic Panel (02/27/2012 9:38 AM PDT) + + + + + + | Component | Value | Ref Range | Performed | Pathologist | | | | | At | Signature | + + + + + + | Na | 138 | 135 - 145 | [facility] | | | | | mmol/L | [facility] | | | | | | HEART | | | | | | MEDICAL | | | | | | CENTER | | | | | | LABORATORY | | + + + + + + | K | 4.1 | 3.5 - 5.0 | [facility] | | | | | mmol/L | [facility] | | | | | | HEART | | | | | | MEDICAL | | | | | | CENTER | | | | | | LABORATORY | | + + + + + + | Cl | 106 | 99 - 109 mmol/L | [facility] | | | | | | [facility] | | | | | | HEART | | | | | | MEDICAL | | | | | | CENTER | | | | | | LABORATORY | | + + + + + + | CO2 | 27 | 21 - 28 mmol/L | [facility] | | | | | | [facility] | | | | | | HEART | | | | | | MEDICAL | | | | | | CENTER | | | | | | LABORATORY | | + + + + + + | Glucose | 100 (H)Comment: [place] Citizen | 65 - 99 mg/dL | [facility] | | | | Diabetes Association | | [facility] | | | | diagnostic categories | | HEART | | | | for non adults: | | MEDICAL | | | | Impaired fasting | | CENTER | | | | glucose 100 to 125 | | LABORATORY | | | | mg/dL. A fasting | | | | | | glucose result of 126 | | | | | | mg/dL or greater | | | | | | indicates diabetes if | | | | | | the abnormality is | | | | | | confirmed on a | | | | | | subsequent day. A | | | | | | random glucose result of | | | | | | greater than 200 mg/dL | | | | | | indicates diabetes if | | | | | | the abnormality is | | | | | | confirmed on a | | | | | | subsequent day. | | | | + + + + + + | BUN | 12 | 8 - 25 mg/dL | [facility] | | | | | | [facility] | | | | | | HEART | | | | | | MEDICAL | | | | | | CENTER | | | | | | LABORATORY | | + + + + + + | Creatinine | 0.82Comment: IDMS | 0.70 - 1.30 | [facility] | | | | traceable creatinine | mg/dL | [facility] | | | | | | HEART | | | | | | MEDICAL | | | | | | CENTER | | | | | | LABORATORY | | + + + + + + | Calcium | 9.1 | 8.5 - 10.2 | [facility] | | | | | mg/dL | [facility] | | | | | | HEART | | | | | | MEDICAL | | | | | | CENTER | | | | | | LABORATORY | | + + + + + + | Anion Gap | 5 | 5 - 16 mmol/L | [facility] | | | | | | [facility] | | | | | | HEART | | | | | | MEDICAL | | | | | | CENTER | | | | | | LABORATORY | | + + + + + + | Estimated | >60Comment: GFR <60: | >60 | [facility] | | | GFR | Chronic kidney disease, | ml/min/1.73m2 | [facility] | | | | if found over a 3 month | | HEART | | | | period.GFR <15: Kidney | | MEDICAL | | | | failure.For | | CENTER | | | | Americans, multiply the | | LABORATORY | | | | calculated GFR by 1.210 | | | | + + + + + + + + | Specimen | + + | | + + + + + + + | Performing | Address | City/State/Zipcode | Phone Number | | Organization | | | | + + + + + | [facility] | [address] | [place] [address] | | | [facility] | | | | | LABORATORY | | | | + + + + + | [facility] | | | | | [facility] | | | | | LABORATORY | | | | + + + + + Protime INR (02/27/2012 9:03 AM PDT) + + + + + + | Component | Value | Ref Range | Performed | Pathologist | | | | | At | Signature | + + + + + + | Prothrombin | 12.9 | 10.9 - 14.8 sec | [facility] | | | Time | | | [facility] | | | | | | HEART | | | | | | MEDICAL | | | | | | CENTER | | | | | | LABORATORY | | + + + + + + | INR | 1.0Comment: Usual oral | 0.9 - 1.2 | [facility] | | | | anticoagulant range: 2.0 | | [facility] | | | | to 3.0 High level | | HEART | | | | oral anticoagulant | | MEDICAL | | | | range: 2.5 to 3.5 | | CENTER | | | | | | LABORATORY | | + + + + + + + + | Specimen | + + | | + + + + + + + | Performing | Address | City/State/Zipcode | Phone Number | | Organization | | | | + + + + + | [facility] | [address] | [place] [address] | | | [facility] | | | | | LABORATORY | | | | + + + + + | [facility] | | | | | [facility] | | | | | LABORATORY | | | | + + + + + documented in this encounter Visit Diagnoses Not on filedocumented in this encounter"
--- OUTSIDE RECORDS SUMMARY | ~2019-10-21 | XMS | Encounter Summary ---
Demographics + + + | Address | [address] | | | [place] [address] | + + + | Home Phone | | + + + | Preferred Language | Unknown | + + + | Marital Status | | + + + | Orthodoxy Affiliation | 1009 | + + + | Race | Unknown | + + + | Ethnic Group | Unknown | + + + Author + + + | Author | [facility] | | | and Jose Enriqueana | + + + | Organization | [facility] | | [...] [address] | | | [address] | | [address], [place] | | | | | [address] | | + + + + + | Rickey Bui | ECON | [address] [place], [place] | | | | | [address] | | + + + + + Care Team Providers + +------+ + | Care Clinical Laboratory Technologist Name | Role | Phone | + [...] Medication Refill | | 2019 | | [facility] | MD Conchis [address] [place] [address] | | | | | [address] | [place] [address] | | | | | [address] | [place] [address] | | | | | [address] | [phone] | | | | | [phone] | | | +--------+--------+ + + + [...]
--- OUTSIDE RECORDS SUMMARY | ~2019-10-21 | XMS | Encounter Summary ---
Demographics + + + | Address | [address] | | | [place] [address] | + + + | Home Phone | | + + + | Preferred Language | Unknown | + + + | Marital Status | | + + + | Mormon Affiliation | 1009 | + + + | Race | Unknown | + + + | Ethnic Group | Unknown | + + + Author + + + | Author | [facility] | | | and Jose Enriqueana | + + + | Organization | [facility] | | | and Jose Enriqueana | + + + | Address | Unknown | + + + | Phone | Unavailable | + + + Support + + + + + | Name | Relationship | Address | Phone | + + + + + | Sharlene Lagunas | ECON | [address] | | | [place] | | [address], [place] | | | | | [address] | | + + + + + | Rickey Bui | ECON | [address] [place], [place] | | | | | [address] | | + + + + + Care Team Providers + +------+ + | Care Information Technology Internship Name | Role | Phone | + +------+ + | Tayo Robles DO | PCP | | + +------+ + Encounter Details +--------+ + + + + | Date | Type | Department | Care Team | Description | +--------+ + + + + | 03/26/ | Abstract | [facility] | Joel Moise | | | 2012 | | Conversion Location | MD Conchis [address] | | | | | [address] | [address] | | | | | [place], [place] | [place] [address] | | | | | [address] | [phone] | | | | | [phone] | | | +--------+ + + + [...] SERVIN | | | | | | [address] | | | | | | | | +--------+---------+ + + + documented as of this encounter Visit Diagnoses Not on filedocumented in this encounter"
--- OUTSIDE RECORDS SUMMARY | ~2019-10-21 | XMS | Encounter Summary ---
Demographics + + + | Address | [address] | | | [place] [address] | + + + | Home Phone | | + + + | Preferred Language | Unknown | + + + | Marital Status | | + + + | Denominational Affiliation | 1009 | + + + | Race | Unknown | + + + | Ethnic Group | Unknown | + + + Author + + + | Author | [facility] | | | and Jose Enriqueana | + + + | Organization | [facility] | | | and Jose Enriqueana | + + + | Address | Unknown | + + + | Phone | Unavailable | + + + Support + + + + + | Name | Relationship | Address | Phone | + + + + + | Sharlene Lagunas | ECON | [address] | | | [address] | | [address], [place] | | | | | [address] | | + + + + + | Rickey Bui | ECON | [address] [place], [place] | | | | | [address] | | + + + + + Care Team Providers + +------+ + | Care Terrazzo Worker Apprentice Name | Role | Phone | + [...] | | atrioventricular | | | | [address] | | block (HCC) | | | | [phone] | | | +--------+ + + + [...] SERVIN | | | | | | [id number] | | | | | | | [...] Data | | | Presenting rhythm is SOIL ANALYST/VS. SOIL ANALYST 45.6%. Patient is on anticoagulant. | | [...] | | | | |Presenting rhythm is SOIL ANALYST/VS. SOIL ANALYST 45.6%. Patient is on | | |anticoagulant. [...]
--- OUTSIDE RECORDS SUMMARY | ~2019-10-21 | XMS | Encounter Summary ---
Demographics + + + | Address | [address] | | | [place] [address] | + + + | Home Phone | | + + + | Preferred Language | Unknown | + + + | Marital Status | | + + + | Christian Affiliation | 1009 | + + + | Race | Unknown | + + + | Ethnic Group | Unknown | + + + Author + + + | Author | [facility] | | | and Jose Enriqueana | + + + | Organization | [facility] | | | and Jose Enriqueana | + + + | Address | Unknown | + + + | Phone | Unavailable | + + + Support + + + + + | Name | Relationship | Address | Phone | + + + + + | Sharlene Lagunas | ECON | [address] | | | [address] | | [address], [place] | | | | | [address] | | + + + + + | Rickey Bui | ECON | [address] [place], [place] | | | | | [address] | | + + + + + Care Team Providers + +------+ + | Care Implementation Engineer Name | Role | Phone | + [...] Medication Refill | | 2019 | | [facility] | MD Conchis [address] [place] [address] | | | | | [address] | [place] [address] | | | | | [address] | [place] [address] | | | | | [address] | [phone] | | | | | [phone] | | | +--------+--------+ + + + [...]
--- OUTSIDE RECORDS SUMMARY | ~2019-10-21 | XMS | Encounter Summary ---
Demographics + + + | Address | [address] | | | [place] [address] | + + + | Home Phone | | + + + | Preferred Language | Unknown | + + + | Marital Status | | + + + | Zoroastrianism Affiliation | 1009 | + + + | Race | Unknown | + + + | Ethnic Group | Unknown | + + + Author + + + | Author | [facility] | | | and Jose Enriqueana | + + + | Organization | [facility] | | | and Jose Enriqueana | + + + | Address | Unknown | + + + | Phone | Unavailable | + + + Support + + + + + | Name | Relationship | Address | Phone | + + + + + | Sharlene Lagunas | ECON | [address] | | | [address] | | [address], [place] | | | | | [address] | | + + + + + | Rickey Bui | ECON | [address] [place], [place] | | | | | [address] | | + + + + + Care Team Providers + +------+ + | Care Front End Engineer Name | Role | Phone | + +------+ + | Tayo Robles DO | PCP | | + +------+ + Reason for Visit + + + | Reason | Comments | + + + | Device Check | Remote, not billed | + + + Encounter Details +--------+ + + + + | Date | Type | Department | Care Team | Description | +--------+ + + + + | 02/18/ | Implant | [facility] | Kristen Klein, | Atrial fibrillation | | 2013 | Monitor | [facility] [place] | RN | ([facility]) (Primary Dx); | | | | [address], | | Cardiac pacemaker in | | | | [place] [address], [place] | | situ | | | | [address] | | | | | | [phone] | | | +--------+ + + + [...] SERVIN | | | | | | [id number] | | | | | | | | +--------+---------+ + + + documented as of this encounter Procedures + +--------+ + + + | Procedure Name | Priori | Date/Time | Associated Diagnosis | Comments | | | ty | | | | + +--------+ + + + | DEVICE INTERROGATION | Routin | 03/23/2014 | Cardiac pacemaker | Results for this | | | e | 8:29 PM | in situ Atrial | procedure are in the | | | | PST | fibrillation ([facility]) | results section. | + +--------+ + + + documented in this encounter Results Device Interrogation (03/23/2014 8:29 PM PST) + + + | Narrative | Performed At | + + + | [facility] | | | ANASTASIYA Klein 03/23/2014 20:29 PATIENT NAME: Prabhjot Lee | | | [place] : 1945: AGE: 68 y.o. Remote | | | Pacemaker Evaluation Report February 10, 2014 Reason for evaluation: | | | requested prior to appointment on 02/11/14Indication for pacemaker: | | | ICD-9-CM 1. Atrial fibrillation ([facility]) 427.31 Device Interrogation | | | 2. Cardiac pacemaker in situ V45.01 Device Interrogation Remotely | | | [...] | | | were reviewed. Settings Mode: AAIR+ 75-130Atrial Output: 1.5V @ | | | 0.4msVentricular Output: 2V @ 0.4ms Data Presenting rhythm is Atrial | | | Flutter with TESTS SUPERINTENDENT/VS. Frequent blanked flutter waves are noted | | | (blanked flutter search is On). AP 12.7%. TESTS SUPERINTENDENT 63.4%. Heart rate | | | histograms appear appropriate. Battery status: satisfactory. Voltage: | | | 2.79 V. Estimated remaining longevity: 11 years. Lead impedances | | | appear within normal limits.Events noted: 49,812 MS for 89.5% of time. | | | 25,261 AHR's, longest for 8:24:22 hours on 01/28/14. On | | | anticoagulation.Device function appears appropriate.Remote follow-up | | | per previous schedule.Dr. Joel Moise MD has supervised and | | | interpreted this remote. | | |Settings | | | | | |Mode: AAIR+ 75-130 | | |Atrial Output: 1.5V @ 0.4ms | | |Ventricular Output: 2V @ 0.4ms | | | | | |Data | | | | | |Presenting rhythm is Atrial Flutter with TESTS SUPERINTENDENT/VS. Frequent blanked | | |flutter waves are noted (blanked flutter search is On). AP | | |12.7%. TESTS SUPERINTENDENT 63.4%. Heart rate histograms appear appropriate. | | |Battery status: satisfactory. Voltage: 2.79 V. Estimated | | |remaining longevity: 11 years. Lead impedances appear within | | |normal limits. | | |Events noted: 49,812 MS for 89.5% of time. 25,261 AHR's, longest | | |for 8:24:22 hours on 01/28/14. On anticoagulation. | | |Device function appears appropriate. | | |Remote follow-up per previous schedule. | | |Dr. Joel Moise MD has supervised and interpreted this | | |remote. | | | | | | | | | | | | | | | | | + + + + + | Procedure Note | + + | Kristen Klein RN - 02/10/2014 9:37 AM PDT Formatting of this note might be | | different from the original.PATIENT NAME: Prabhjot Bui : 1945: | | AGE: 68 y.o.Remote Pacemaker Evaluation ReportS2013Reason for | | evaluation: requested prior to appointment on 02/11/14Indication for pacemaker: ICD-9-CM | | 1. Atrial fibrillation (HCC) 427.31 Device Interrogation 2. Cardiac pacemaker in situ | | V45.01 Device Interrogation Remotely captured device data was reviewed for pacemaker | | parameters, battery status, percentage of pacing and significant arrhythmias. Heart rate | | histograms were evaluated for adequate heart rate response and any alerts reviewed. | | Pacing lead impedances were reviewed for any significant changes. Final pacing outputs | | and programming parameters were reviewed.SettingsMode: AAIR+ 75-130Atrial Output: 1.5V @ | | 0.4msVentricular Output: 2V @ 0.4msDataPresenting rhythm is Atrial Flutter with TESTS SUPERINTENDENT/VS. | | Frequent blanked flutter waves are noted (blanked flutter search is On). AP 12.7%. TESTS SUPERINTENDENT | | 63.4%. Heart rate histograms appear appropriate. Battery status: satisfactory. | | Voltage: 2.79 V. Estimated remaining longevity: 11 years. Lead impedances appear within | | normal limits.Events noted: 49,812 MS for 89.5% of time. 25,261 AHR's, longest for | | 8:24:22 hours on 01/28/14. On anticoagulation.Device function appears appropriate.Remote | | follow-up per previous schedule.Dr. Joel Moise MD has supervised and | | interpreted this remote. | | | |Settings | | | |Mode: AAIR+ 75-130 | |Atrial Output: 1.5V @ 0.4ms | |Ventricular Output: 2V @ 0.4ms | | | |Data | | | |Presenting rhythm is Atrial Flutter with TESTS SUPERINTENDENT/VS. Frequent blanked flutter waves are noted ( blanked flutter search is On). AP 12.7%. TESTS SUPERINTENDENT 63.4%. Heart rate histograms appear appropria te. Battery status: satisfactory. | |Voltage: 2.79 V. Estimated remaining longevity: 11 years. Lead impedances appear within no rmal limits. | |Events noted: 49,812 MS for 89.5% of time. 25,261 AHR's, longest for 8:24:22 hours on . On anticoagulation. | |Device function appears appropriate. | |Remote follow-up per previous schedule. | |Dr. Joel Moise MD has supervised and interpreted this remote. | + + documented in this encounter Visit Diagnoses + + | Diagnosis | + + | Atrial fibrillation (HCC) - Primary Atrial fibrillation | + + | Cardiac pacemaker in situ | + + documented in this encounter"
--- OUTSIDE RECORDS SUMMARY | ~2019-10-21 | XMS | Encounter Summary ---
Demographics + + + | Address | [address] | | | [place] [address] | + + + | Home Phone | | + + + | Preferred Language | Unknown | + + + | Marital Status | | + + + | Oriental Orthodox Affiliation | 1009 | + + + | Race | Unknown | + + + | Ethnic Group | Unknown | + + + Author + + + | Author | [facility] | | | and Jose Enriqueana | + + + | Organization | [facility] | | | and Jose Enriqueana | + + + | Address | Unknown | + + + | Phone | Unavailable | + + + Support + + + + + | Name | Relationship | Address | Phone | + + + + + | Sharlene Lagunas | ECON | [address] | | | [address] | | [address], [place] | | | | | [address] | | + + + + + | Rickey Bui | ECON | [address] [place], [place] | | | | | [address] | | + + + + + Care Team Providers + +------+ + | Care Manager Insurance Name | Role | Phone | + +------+ + PCP | Unavailable | + +------+ + Encounter Details +--------+ + + + + | Date | Type | Department | Care Team | Description | +--------+ + + + + | 03/20/ | Hospital | [facility] | | | | 1998 | Encounter | MED CTR ICU [address] | | | | | | [place], | | | | | | [place] [address] | | | | | | [phone] | | | +--------+ + + + [...] SERVIN | | | | | | [address] | | | | | | | | +--------+---------+ + + + documented as of this encounter Visit Diagnoses Not on filedocumented in this encounter"
--- OUTSIDE RECORDS SUMMARY | ~2019-10-21 | XMS | Encounter Summary ---
Demographics + + + | Address | [address] | | | [place] [address] | + + + | Home Phone [...] | Author | [facility] | | | and Jose Enriqueana | + + + | Organization | [facility] | | | and Jose Enriqueana | + + + | Address | Unknown | + + + | Phone | Unavailable | + + + Support + + + + + | Name | Relationship | Address | Phone | + + + + + | Sharlene Lagunas | ECON | [address] | | | [place] | | [address], [place] | | | | | [address] | | + + + + + | Rickey Bui | ECON | [address] [place], [place] | | | | | [address] | | + + + + + Care Team Providers + +------+ + | Care Auto Clutch Rebuilder Name | Role | Phone | + +------+ + | Tayo Robles DO | PCP | | + +------+ + Encounter Details +--------+ + + + + | Date | Type | Department | Care Team | Description | +--------+ + + + + | 12/13/ | Orders Only | [facility] | Joel Moise | | | 2011 | | [facility] | MD [address]ch[facility] [address] | | | | | [address] | [address] | | | | | [facility] [address] | [place] [address] | | | | | [address] | [phone] | | | | | [phone] | | | +--------+ + + + [...] SERVIN | | | | | | [address] | | | | | | | | +--------+---------+ + + + documented as of this encounter Procedures + +--------+ + + + | Procedure Name | Priori | Date/Time | Associated Diagnosis | Comments | | | ty | | | | + +--------+ + + + | HISTORICAL LAB PANEL | Routin | 12/14/2011 | | Results for this | | RESULT | e | | | procedure are in the | | | | | | results section. | + +--------+ + + + documented in this encounter Results HISTORICAL LAB PANEL RESULT (12/14/2011) + +-------+ + + + | Component | Value | Ref Range | Performed | Pathologist | | | | | At | Signature | + +-------+ + + + | INR | 1.4 | | EXTERNAL | | | | [...]
--- OUTSIDE RECORDS SUMMARY | ~2019-10-21 | XMS | Clinical Summary ---
Demographics + + + | Address | [address] | | | [place] [address] | + + + | Home Phone | | + + + | Preferred Language | Unknown | + + + | Marital Status | | + + + | Hindu Affiliation | 1009 | + + + | Race | Unknown | + + + | Ethnic Group | Unknown | + + + Author + + + | Author | [facility] | | | and Jose Enriqueana | + + + | Organization | [facility] | [...] SW | | | Hao | | [address] [place] | | | | | [address] | | + + + + + | Rickey Bui | ECON | [address] [facility] [place] | | | | | [address] | | + + + + + Care Team Providers + +------+ + | Care Press Box Custodian Name | Role | Phone | + +------+ + | Luna Larson | PCP | | | PA | | | + +------+ + Allergies + + + + + + | Active Allergy | Reactions | Severity | Noted | Comments | | | | | Date | | + + + + + + | Amoxicillin | Rash | Low | 07/23/19 | | | | | | 14 | | + + + + + + | Flecainide | Other (See Comments) | Medium | 04/29/20 | AFTER 1ST | | | | | 14 | ABLATION, HAD LEG | | | | | | SWELLING, INCREASED | | | | | | HEART RATE | + + + + + + Medications + + + +---------+------+------+-------+ | Medication | Sig | Dispensed | Refills | Star | End | Statu | | | | | | t | Date | s | | | | | | Date | | | + + + +---------+------+------+-------+ | DHEA 25 MG CAPS | Take 25 mg by mouth | | 0 | 01/20 | | Activ | | | Daily. | | | 09/08 | | e | | | | | | 12 | | | + + + +---------+------+------+-------+ +---+ + | | Additional | | | InformationPatient | | | taking differently: | | | 25 mg Oral 2 TIMES | | | DAILY, Reported on | | | 02/09/2018 8:22 AM | +---+ + + + +--------+---+------+---+-------+ | fish oil 1,000 mg | Take 1,000 mg by | | 0 | | | Activ | | capsule | mouth Daily. | | | | | e | + + +--------+---+------+---+-------+ | warfarin | Take 7.5 mg by mouth | | 0 | 1 | | Activ | | (COUMADIN) 7.5 mg | See Admin | | | 09/08 | | e | | tablet | Instructions. As | | | 12 | | | | | directed by PCP | | | | | | + + +--------+---+------+---+-------+ | TAURINE PO | Take 1,500 mg by | | 0 | 01/20 | | Activ | | | mouth 2 times daily. | | | 09/08 | | e | | | Six caps daily; | | | 12 | | | + + +--------+---+------+---+-------+ | tamsulosin | Take 0.4 mg by mouth | | 0 | | | Activ | | (FLOMAX) 0.4 mg CAPS | daily (after | | | | | e | | | breakfast). | | | | | | + + +--------+---+------+---+-------+ | anastrozole | Take 0.25 tablets by | | 0 | 01/20 | | Activ | | (ARIMIDEX) 1 mg | mouth Once a week. | | | 01/08 | | e | | tablet | MONDAYS | | | 14 | | | + + +--------+---+------+---+-------+ | L-Methylfolate 15 | Take 15 mg by mouth | | 0 | 08/2 | | Activ | | MG TABS | Daily. | | | 02/08 | | e | | | | | | 14 | | | + + +--------+---+------+---+-------+ | Cholecalciferol | Take 5,000 Units by | | 0 | 09/1 | | Activ | | ([employer] VITAMIN D) 2000 | mouth Daily. | | | 09/08 | | e | | UNITS CAPS | | | | 12 | | | + + +--------+---+------+---+-------+ | Garlic 1000 MG | Take 1,000 mg by | | 0 | 09/1 | | Activ | | CAPS | mouth Daily. | | | 20 | | e | | | | | | 12 | | | + + +--------+---+------+---+-------+ | PROAIR HFA 108 (90 | Inhale 2 puffs into | | 1 | 04/0 | | Activ | | Base) MCG/ACT | the lungs as needed. | | | 420 | | e | | inhaler | | | | 17 | | | + + +--------+---+------+---+-------+ | Coenzyme Q10 (CO | Take 1 capsule by | | 0 | | | Activ | | Q-10) 100 MG CAPS | mouth Daily. Also | | | | | e | | | has | | | | | | | | G-Ztnwdk-Xhxpleia | | | | | | | | 250 mg & | | | | | | | | Pyrroloquinoline PQQ | | | | | | | | 10 mg | | | | | | + + +--------+---+------+---+-------+ | UNABLE TO FIND | Daily. Med Name: | | 0 | | | Activ | | | Spirolina | | | | | e | + + +--------+---+------+---+-------+ | Potassium | Take 1 capsule by | | 0 | | | Activ | | Gluconate 595 MG | mouth Daily. | | | | | e | | CAPS | | | | | | | + + +--------+---+------+---+-------+ | non-formulary | Daily. Nerium po | | 0 | | | Activ | | medication | | | | | | e | + + +--------+---+------+---+-------+ | MAGNESIUM PO | Take 133 mg by | | 0 | | | Activ | | | mouth. | | | | | e | + + +--------+---+------+---+-------+ | thyroid (ARMOUR | Take 30 mg by mouth | | 0 | | | Activ | | THYROID) 30 mg | Daily. [place]iler | | | | | e | | tablet | Thyroid 75 mg in the | | | | | | | | morning and 30 mg | | | | | | | | in the evening. | | | | | | + + +--------+---+------+---+-------+ | levothyroxine | Take 25 mcg by mouth | | 0 | | | Activ | | (SYNTHROID) 25 mcg | every morning | | | | | e | | tablet | (before breakfast). | | | | | | + + +--------+---+------+---+-------+ | torsemide | Take 20 mg by mouth | | 0 | | | Activ | | (DEMADEX) 20 mg | as needed for Edema. | | | | | e | | tablet | | | | | | | + + +--------+---+------+---+-------+ | TURMERIC PO | Take by mouth. | | 0 | | | Activ | | | | | | | | e | + + +--------+---+------+---+-------+ | furosemide (LASIX) | Take 20 mg by mouth | | 0 | | | Activ | | 20 mg tablet | as needed for Edema. | | | | | e | + + +--------+---+------+---+-------+ | testosterone | Apply 50 mg of | | 0 | | | Activ | | (ANDROGEL) 50 mg/5 g | testosterone | | | | | e | | (1%) gel | topically Daily. | | | | | | + + +--------+---+------+---+-------+ | cloNIDine | TAKE 1 TABLET TWICE | 180 | 3 | 11/2 | | Activ | | (CATAPRES) 0.2 MG | A DAY *ACTAVIS* | tablet | | 6/20 | | e | | tablet | | | | 19 | | | + + +--------+---+------+---+-------+ | metoprolol | TAKE 1 AND /2 | 270 | 3 | 03/23 | | Activ | | succinate | TABLETS TWICE | tablet | | 620 | | e | | (TOPROL-XL) 50 mg 24 | DAILY (DOSE | | | 19 | | | | hr tablet | INCREASE) | | | | | | + + +--------+---+------+---+-------+ | digoxin (LANOXIN) | Take 1 tablet by | 90 | 1 | 04/23 | | Activ | | 250 mcg tablet | mouth Daily. | tablet | | 0/20 | | e | | | | | | 19 | | | + + +--------+---+------+---+-------+ | clindamycin | Take 150 mg by mouth | | 0 | | | Activ | | (CLEOCIN) 150 mg | as needed. Prior to | | | | | e | | capsule | dental work | | | | | | + + +--------+---+------+---+-------+ | ketoconazole | ketoconazole 2 % | | 0 | | | Activ | | (NIZORAL) 2% shampoo | shampoo | | | | | e | + + +--------+---+------+---+-------+ | SYNTHROID 50 MCG | | | 0 | 12/3 | | Activ | | tablet | | | | 0/20 | | e | | | | | | 19 | | | + + +--------+---+------+---+-------+ Active Problems + + + | Problem | Noted Date | + + + | S/P AVR | 08/19/2019 | + + + | Fitting and adjustment of cardiac pacemaker DO NOT DELETE | 04/04/2014 | + + + | Edema | 01/06/2014 | + + + + + | Overview: Lepzern-lmct-ghjxcxjd | + + + + + | Sinoatrial node dysfunction (HCC) DO NOT DELETE. | 01/06/2014 | + + + + + | Last Assessment & Plan: V pacing 55.9 % | + + + + + | Hx of amiodarone therapy | 08/01/2013 | + + + + + | Overview: Last PFT's 07/17/2012 - Mod-Severe Obstructive | | Airways Disease - Reversible Minimal Diffusion DefectLast Chest | | Xray - 06/11/13; Last TSH 07/19/13; Last ALT/AST | | 03/07/13Amiodarone start date-01/22/13. Initial dose 200 mg 3 | | times a day. Patient has been on amiodarone in the past.Dose | | prior to visit July 22, 2013-amiodarone 200 mg 5 days a week. | | Amiodarone 300 mg 2 days a week.LAB 10/15/13 - AST 20 ALT 14 Last | | Assessment & Plan: Amiodarone followup. February 2013 TSH | | 0.095. Otherwise normal thyroid functions. Liver tests normal. | | Chest x-ray 06/11/13-normal other than hyperinflation.Therefore, | | amiodarone followup is appropriate.Plan: Amiodarone testing for | | liver thyroid in August. | + + + + + | 2. Bicuspid aortic valve with dilated aortic root - mild aortic | 07/21/2013 | | insufficiency - Echocardiogram 09/13/04 reveals peak gradient of | | | 11, calculated valve area of 2.3 cm2, and mildly dilated | | | ascending aort | | + + + + + | Overview: 2. Bicuspid aortic valve with dilated aortic root - | | mild aortic insufficiency - Echocardiogram 09/13/04 reveals peak | | gradient of 11, calculated valve area of 2.3 cm2, and mildly | | dilated ascending aortic root - 4.5 cm compared to a similar 4.5 | | cm on previous echocardiogram 07/08/03. Mild aortic insufficiency. | | Last echocardiogram (07/25/01), demonstrated a peak gradient of 8 | | mmHg and a mean gradient of 4 mmHg. The patient has minimal | | stenosis and no aortic insufficiency - echocardiogram 06/24/05. . | | Dilated aortic root - stable on echocardiogram 06/24/05 - 4.5 cm. - | | 4.8 cm previously: Last Assessment & Plan: Valve replacement | | functioning well on echo 12/2015Patient has been having more | | problems with lower extremity edema, losing his stamina quickly.I | | reviewed his history and clinical signs with Dr. Moise and | | the plan is to increase his Lasix to Monday and Add | | potassium 20 mEq on Monday and Repeat echocardiogram | + + + + + | Hypertension | 04/03/2013 | + + + + + | Overview: Essential [id number] Record update Last | | Assessment & Plan: Well-controlled with current medical therapy | | Last Assessment & Plan: Well-controlled with current medical therapy | + + + + + | Hyperthyroidism | 04/03/2013 | + + + + + | Overview: Managed by Dr. Robles | | ICD-10 Record update | + + + + + | Malaise and fatigue | 02/21/2013 | + + + + + | Bill: LEVON [id number] Decision | + + + + + | Cough due to bronchospasm | 09/04/2012 | + + + | Pacemaker - Medtronic - [id number] Franka - : [id number] Implanted | 09/04/2012 | | 02/27/2012 | | + + + + + | Overview: Tachy valentina HR 50 in SR and Afib 150's. Last | | Assessment & Plan: [facility] | | 9 yearsVentricular paced 55.9%7 VHR with the longest lasting 2 | | minutes and 18 seconds with RVR, on 03/10/17No further events | | since 03/12/17Heart rate distribution was adequate and no changes | | were made | |Heart rate distribution was adequate and no changes were made | + + + + + | Aortic valve replaced | 09/04/2012 | + + + + + | Overview: AVR 27 mm freestyle porcine aortic root and 24 mm | | Hemashield woven Dacron Graft. Last Assessment & Plan: Heart | | valve sounds good no murmurs.Plan: Continue to follow | |Plan: Continue to follow | + + + + + | Atrial fibrillation/atrial flutter | 07/13/2011 | + + + + + | Overview: Cardioversion 03/07/2013. Returning to atrial paced | | rhythm.Patient is doing well on amiodarone 1 tab daily and and 1 | | 1/2 tabs Mon and .Onset Last Assessment & Plan: | | Overall rate controlledOn warfarin for anticoagulation therapy | | Last Assessment & Plan: Overall rate controlled | |On warfarin for anticoagulation therapy | + + + + + | OBSTRUCTIVE SLEEP APNEA | 07/13/2011 | + + + | Varicose veins of bilateral lower extremities with pain | | + + + | Dyspnea on exertion | | + + + | Localized soft tissue swelling | | + + + | BPH (benign prostatic hyperplasia) | | + + + | Diverticulosis of colon | | + + + | GERD (gastroesophageal reflux disease) | | + + + | Gout | | + + + | Basal cell carcinoma | | + + + | Hypertrophy of breast | | + + + | Hypogonadism in male | | + + + | Lymphedema | | + + + | Organic sleep apnea | | + + + | Osteoarthritis | | + + + | Colon polyps | | + + + | Seborrheic dermatitis | | + + + | Venous insufficiency (chronic) (peripheral) | | + + + | Gallbladder disease | | + + + | Idiopathic peripheral neuropathy | | + + + | Venous stasis dermatitis | | + + + Resolved Problems + + + + | Problem | Noted | Resolved | | | Date | Date | + + + + | S/P AVR (aortic valve replacement) | 08/16/19 | | | | 19 | 9 | + + + + | Atrial flutter | 04/30/20 | | | | 14 | 7 | + + + + | Atrial flutter | 02/22/20 | | | | 13 | 4 | + + + + Encounters +--------+ + + + + | Date | Type | Specialty | Care Team | Description | +--------+ + + + + | 10/01/ | Telephone | Cardiology | Joel Moise | Device Check | | 2019 | | | RMD Kim | (Remote) | +--------+ + + + + | 08/20/ | Orders Only | Cardiology | Joel Moise | S/P AVR (aortic | | 2019 | | | RMD Kim | valve replacement) | | | | | | (Primary Dx) | +--------+ + + + + | 08/19/ | Implant | Cardiology | Damaris Preciado, | Sinoatrial node | | 2019 | Monitor | | RN | dysfunction (HCC) | | | | | | (Primary Dx); | | | | | | Cardiac pacemaker in | | | | | | situ | +--------+ + + + + | 08/19/ | Implant | Cardiology | Lidia Christianson, | Sinoatrial node | | 2019 | Monitor | | RN | dysfunction (HCC) | | | | | | (Primary Dx); | | | | | | Cardiac pacemaker in | | | | | | situ | +--------+ + + + + | 08/18/ | Virtual | Cardiology | Joel Moise | Sinoatrial node | | 2019 | Office | Jennyfer Balderrama MD | dysfunction ([facility]) DO | | | Visit | | | NOT DELETE. | | | | | | (Primary Dx); | | | | | | Hypertension; Atrial | | | | | | fibrillation, | | | | | | unspecified type | | | | | | ([facility]); S/P AVR; | | | | | | Pacemaker - | | | | | | Medtronic - [id number] | | | | | | Adapta - SN: | | | | | | [id number] Implanted | | | | | | 02/27/2012 | +--------+ + + + + | 08/14/ | Telephone | Cardiology | Joel Moise | Device Check | 2019 | | | MD [place] | (Remote) (pre | | | | | | appointment) | +--------+ + + + + | 08/12/ | Telephone | Cardiology | Joel Moise | Appointment | 2019 | | | MD [place] | | +--------+ + + + + from Last 3 Months Immunizations + + + + | Name | Administration Dates | Next Due | + + + + | INFLUENZA 65 Y OR >, | 04/06/2017, 04/09/2015, 02/19/2013 | | | TRIVALENT HIGH-DOSE | | | + + + + | INFLUENZA PF 65 Y OR | 04/02/2018 | | | >,TRIVALENT (FLUAD) | | | + + + + | INFLUENZA TRIV | 04/21/2014 | | | W/PRES(PED/ADOL/ADUL | | | | T),MULTIDOSE | | | + + + + | INFLUENZA, | 05/01/2014, 04/29/2010, 04/10/2007 | | | UNSPECIFIED | | | | FORMULATION | | | + + + + | PNEUMOCOCCAL | 04/06/2017 | | | CONJUGATE 13-VALENT | | | | (PCV13) | | | + + + + | PNEUMOCOCCAL | 04/02/2018 | | | POLYSACCHARIDE | | | | 23-VALENT (PPSV23) | | | + + + + | ZOSTER, 1 DOSE | 11/18/2010 | | | (ZOSTAVAX) | | | + + + + Family History + + +------+ + | Medical History | Relation | Name | Comments | + + +------+ + | Colon cancer | Brother | | , colon cancer | + + +------+ + | Dementia | Father | | | + + +------+ + | Diabetes | Father | | | + + +------+ + | Hypertension | Father | | | + + +------+ + | Stroke | Father | | | + + +------+ + | Diabetes | Maternal | | | | | Grandmoth | | | | | er | | | + + +------+ + | Atrial fibrillation | Mother | | Also had a bad valve | + + +------+ + | Breast cancer | Mother | | | + + +------+ + | Hypertension | Mother | | | + + +------+ + | Hypertension | Sister | | | + + +------+ + | Stroke | Sister | | | + + +------+ + + +------+ + + | Relation | Name | Status | Comments | + +------+ + + | Brother | | | colon cancer | + +------+ + + | Brother | | | | + +------+ + + | Father | | | | + +------+ + + | Maternal Grandmother | | | | + +------+ + + | Mother | | | | + +------+ + + | Sister | | | | + +------+ + + | Sister | | | | + +------+ + + Social History + +-------+ +--------+------+ [...] recent travel history available. | + + Last Filed Vital Signs + + + + + | Vital Sign | Reading | Time Taken | Comments | + + + + + | Blood Pressure | 145/82 | 08/19/2019 12:01 PM | Patient Reported | | | | PDT | | + + + + + | Pulse | 81 | 08/19/2019 12:01 PM | Patient Reported | | | | PDT | | + + + + + | Temperature | 36.3 C (97.3 F) | 12/20/2018 9:08 AM | | | | | PDT | | + + + + + | Respiratory Rate | 16 | 10/24/2018 1:55 PM | | | | | PDT | | + + + + + | Oxygen Saturation | 97% | 12/20/2018 9:08 AM | | | | | PDT | | + + + + + | Inhaled Oxygen | - | - | | | Concentration | | | | + + + + + | Weight | 108 kg (238 lb) | 08/19/2019 12:01 PM | Patient Reported | | | | PDT | | + + + + + | Height | 193 cm (6' 4") | 08/19/2019 12:01 PM | | | | | PDT | | + + + + + | Body Mass Index | 28.97 | 08/19/2019 12:01 PM | | | | | PDT | | + + + + + Plan of Treatment +--------+---------+ + + + | Date | Type | Specialty | Care Team | Description | +--------+---------+ + + + | 10/30/ | Office | Sleep Medicine | Rickey Zaragoza PA | | | 2019 | Visit | | [address] | | | | | | [place] | | | | | | [address] | | | | | | | | +--------+---------+ + + + + + + + + | Health Maintenance | Due Date | Last Done | Comments | + + + + + | Hepatitis C | | | | | Screening | 6 | | | + + + + + | Vaccine: | | | | | Dtap/Tdap/Td (1 - | 7 | | | | Tdap) | | | | + + + + + | Adult Annual | | | | | Wellness Visit | 5 | | | + + + + + | Vaccine: Zoster (3 | | 04/06/2019, 11/18/2010 | | | of 3) | 0 | | | + + + + + | Colorectal Cancer | | 09/02/2015 | | | Screening | 6 | | | | (Colonoscopy) | | | | + + + + + | Vaccine: | Completed | 04/02/2018, 04/06/2017 | | | Pneumococcal 65+ | | | | + + + + + | Vaccine: Influenza | Completed | 04/06/2019, 04/02/2018, | | | | | 04/06/2017, Additional history | | | | | exists | | + + + + + Procedures + +--------+ + + + | [...] | | + +--------+ + + + from Last 3 Months Results Device Interrogation - Remote (08/20/2019 11:59 PM PDT)Only the most recent of 2 results wi thin the time period is included. + + + | Narrative | Performed At | + + + | Damaris Y | [facility] | | ANASTASIYA Preciado 08/18/2019 12:26 PM PATIENT NAME: Prabhjot Lee | | | Hao : 1945: AGE: 73 y.o. Remote | [...] | | rhythm is atrial flutter with FRUCTOSE LOADER/VS, ~78 bpm. FRUCTOSE LOADER 72.8%. Heart rate | | | histogram [...] | |Presenting rhythm is atrial flutter with FRUCTOSE LOADER/VS, ~78 bpm. FRUCTOSE LOADER | | |72.8%. Heart rate histogram appears [...] | | | + +---------+ + + from Last 3 Months Insurance + +--------+ +--------+ +---------+--------+ | Payer | Benefi | Subscriber | Effect | Phone | Address | Type | | | t Plan | ID | serina | | | | | | / | | Dates | | | | | | Group | | | | | | + +--------+ +--------+ +---------+--------+ | MEDICARE | MEDICA | [id number] | 11/20/19 | [phone] | | Medica | | | RE | | 11-Pre | 5 | | re | | | PART A | | sent | | | | | | AND B | | | | | | + +--------+ +--------+ +---------+--------+ | GEHA | GEHA | [id number] | 05/22/19 | [phone] | | Indemn | | | MDCR | | 13-Pre | 6 | | ity | | | SUPPL | | sent | | | | + +--------+ +--------+ +---------+--------+ + +--------+ +--------+ + + | Guarantor Name | Accoun | Relation to | Date | Phone | Billing Address | | | t Type | Patient | of | | | | | | | | | | + +--------+ +--------+ + + | Prabhjot Bui | Person | Self [birth year] | [address] | | [place] | rodo/Elder | | 1946 | [phone] | [place] [address] | | | [place] | | | 0 (Home) | | + +--------+ +--------+ + + Advance Directives + + + + + | Type | Date Recorded | Patient | Explanation | | | | Cassandra Developer | | + + + + + | Power of | | | | | Metal Flow Coordinator | | | | + + + + + | Advance | 04/30/2014 | | at home & at [facility] | | Directive | 7:45 AM | | | + + + + +
--- OUTSIDE RECORDS SUMMARY | ~2019-10-21 | XMS | Encounter Summary ---
Demographics + + + | Address | [address] | | | [place] [address] | + + + | Home Phone | | + + + | Preferred Language | Unknown | + + + | Marital Status | | + + + | Druze Affiliation | 1009 | + + + | Race | Unknown | + + + | Ethnic Group | Unknown | + + + Author + + + | Author | [facility] | | | and Jose Enriqueana | + + + | Organization | [facility] | | | and Jose Enriqueana | + + + | Address | Unknown | + + + | Phone | Unavailable | + + + Support + + + + + | Name | Relationship | Address | Phone | + + + + + | Sharlene Lagunas | ECON | [address] | | | [place] | | [place], [place] | | | | | [address] | | + + + + + | Rickey Bui | ECON | [address] [place], [place] | | | | | [address] | | + + + + + Care Team Providers + +------+ + | Care Service Bar Cashier Name | Role | Phone | + [...] Refill | | 2015 | | [facility]ARDIOLOGY [facility] | MD Conchis [address] [place] [address] | | | | | [facility] [address] | [facility] [address] | | | | | [place] [address] [place] | [place] [address] | | | | | [phone] | [phone] | | | | | [phone] | | | +--------+--------+ + + + [...]
--- OUTSIDE RECORDS SUMMARY | ~2019-10-21 | XMS | Encounter Summary ---
Demographics + + + | Address | [address] | | | [place] [address] | + + + | Home Phone [...] | Author | [facility] | | | and Jose Enriqueana | + + + | Organization | [facility] | | | and Jose Enriqueana | + + + | Address | Unknown | + + + | Phone | Unavailable | + + + Support + + + + + | Name | Relationship | Address | Phone | + + + + + | Sharlene Lagunas | ECON | [address] | | | [place] | | [address], [place] | | | | | [address] | | + + + + + | Rickey Bui | ECON | [address] [place], [place] | | | | | [address] | | + + + + + Care Team Providers + +------+ + | Care Cone Machine Feeder Name | Role | Phone | + +------+ + | Tayo Robles DO | PCP | | + +------+ + Reason for Visit +--------+ + | Reason | Comments | +--------+ + | Apnea | | +--------+ + Encounter Details +--------+---------+ + + + | Date | Type | Department | Care Team | Description | +--------+---------+ + + + | 06/05/ | Office | [facility] | Rickey Zaragoza PA | ABAD on CPAP (Primary | | 2015 | Visit | SLEEP DISORDER [address] | [address] | Dx) | | | | [address] | [place] | | | | | [place] [id number] | [id number] | | | | | [phone] | | | +--------+---------+ + + + [...] + + + | Blood Pressure | 132/78 | 06/05/2014 10:35 AM | | | | | PST | | + + + + + | Pulse | 92 | 06/05/2014 10:35 AM | | | | | PST | | + + + + + | Temperature | - | - | | + + + + + | Respiratory Rate | 16 | 06/05/2014 10:35 AM | | | | | PST | | + + + + + | Oxygen Saturation | 98% | 06/05/2014 10:35 AM | | | | | PST | | + + + + + | Inhaled Oxygen | - | - | | | Concentration | | | | + + + + + | Weight | 111.9 kg (246 lb | 06/05/2014 10:35 AM | | | | 11.2 oz) | PST | | + + + + + | Height | - | - | | + + + + + | Body Mass Index | 35.4 | 04/30/2014 9:41 AM | | | | | PST | | + + + + + documented in this encounter Progress Rickey Chase PA - 06/05/2014 10:07 AM PST Subjective: Patient ID: Prabhjot Bui is a 68 y.o. male. HPI last office visit was: 12/25/2013 date of polysomnography: 03/01/2004 AHI: 14.0 (35.3 during REM) O2%: 90% Machine type: ResMed S9 with full face mask obtained from: Kannan rico Anish pressure is: 6-16 cm 95%: 10.8 cm maxium: 11.9 cm CPAP download shows CPAP useage # nights: 361/365 154/162 % of nights >4 hours: 86% 50% Average usage (all nights): 5:24 3:55 average usage (nights used): 5:28 4:07 AHI: 1.9 Prabhjot comes in for CPAP compliance. He continues to wear his CPAP regularly, but is often t aking off his mask during the night. The times he takes off his mask early in the night has been because he cannot breathe through his nose. We discussed having him see an ENT specia list at his last few appointments, but he has not done this. He is using a full face mask, which allows him to breathe through his nose or mouth, but it is not comfortable to breathe through his mouth when using CPAP. He continues to nap during the day, which has a negative impact on his night sleep. This i s typical for him during the winter because he is very inactive when it is cold outside. Du ring spring, summer and fall he is outside working in their yard and stays active without ne eding to nap. This allows him to sleep better at night. I have discussed the download in detail. This shows that his sleep apnea is well controlle d, with an AHI of 1.9. It also shows that his leaks are well controlled. Review of Systems Objective: Physical Exam Assessment: Problem # 1: OBSTRUCTIVE SLEEP APNEA (ICD-327.23) This is well controlled with CPAP. His CPAP compliance is going well, but the times he is not using his CPAP is because of his congestion. Problem #2: POOR SLEEP HYGIENE (307.49) He continues to nap daily without his CPAP and often wakes during the night to read. Plan: 1. He is to continue with CPAP indefinitely. I have written him a prescription for flutic asone nasal spray to help with his congestion. He is considering seeing an ENT specialist f or evaluation of his nasal passage. 2. He is to do the following: a) Awaken at nearly the same time ever day at 6:30am. b) Obtain as much bright light as possible during your desired waking hours. c) No more than 2 small cups of coffee in the morning and NO OTHER SOURCES OF CAFFEINE. d) Eliminate or minimize smoking and alcohol consumption, especially near bedtime. e) Do not nap during the daytime; this will interfere with your night-time sleep. f) Darken your environment an hour or two before bedtime. g) Consider "unwinding" and "closing" your day about an hour before your anticipated bedtim e. h) Go to bed only when you are sleepy and no earlier than 7-9 hours before your anticipated wake time. i) Use your bedroom only for sleeping. j) Only sleep in your bedroom - do not sleep in other areas of your house. k) Between bedtime and wake time the only things you are allowed to do is to sleep in your bedroom or to sit comfortably in another room, in the dark, doing nothing. Do not watch TV, work on the computer, send text messages, do housework, or problem solve between bedtime and wake time. l) If you find that you aren't asleep, get up out of bed (keep your environment dark with j ust low level light, so that you won't fall) and go to another room. Sit quietly in the dark until you are sleepy and then go back to bed. You may repeat this as many times as necessar y. But you must awaken at the same time every day, regardless of how you slept that night. m) If you continue to sleep poorly, consider going to bed a little later each night (but aw aken at the same time every morning and don't nap) until you are sleeping through the majori ty of the time between bed time and wake time. n) Wear CPAP 100% of the time asleep or attempting to sleep. I will follow up again in 6 months, sooner prn. Thirty minutes were spent [id number], wi th the majority of time spent in counseling. [...] [place] | | | | | | [id number] | | | | | | | | +--------+---------+ + + + documented as of this encounter Visit Diagnoses + + | Diagnosis | + + | ABAD on CPAP - Primary Obstructive sleep apnea (adult) (pediatric) | + + documented in this encounter
--- OUTSIDE RECORDS SUMMARY | ~2019-10-21 | XMS | Clinical Summary ---
Demographics + + + | Address | [address] | | | [place] [address] | + + + | Home Phone | | + + + | Preferred Language | Unknown | + + + | Marital Status | | + + + | Synagogue Affiliation | Unknown | + + + | Race | Unknown | + + + | Ethnic Group | Unknown | + + + Author + + + | Author | [facility] (Historical as of | | | 01-05-19) | + + + | Organization | [facility] (Historical as of | | | 01-05-19) | + + + | Address | Unknown | + + + | Phone | Unavailable | + + + Support + + + + + | Name | Relationship | Address | Phone | + + + + + | Message,Detailed | ECON | Unknown | | + + + + + | HaoRyann | ECON | [address] | | | | | [place] | | | | | [address] | | + + + + + Care Team Providers + +------+ + | Care Manager Truck Name | Role | Phone | + +------+ + | Tayo Robles DO | PP | | + +------+ + Allergies + + + + + + | Active Allergy | Reactions | Severity | Noted | Comments | | | | | Date | | + + + + + + | Amoxicillin | Rash | Medium | //20 | | | | | | 15 | | + + + + + + Current Medications + + +--------+---------+------+------+-------+ | Prescription | Sig. | Disp. | Refills | Star | End | Statu | | | | | | t | Date | s | | | | | | Date | | | + + +--------+---------+------+------+-------+ | anastrozole | | | | 09/1 | | Activ | | (ARIMIDEX) 1 MG | | | | 5/20 | | e | | tablet | | | | 15 | | | + + +--------+---------+------+------+-------+ | cloNIDine | | | | 09/2 | | Activ | | (CATAPRES) 0.2 MG | | | | 5/20 | | e | | tablet | | | | 15 | | | + + +--------+---------+------+------+-------+ | digoxin (LANOXIN) | | | | 07/1 | | Activ | | 0.25 MG tablet | | | | 4/20 | | e | | | | | | 15 | | | + + +--------+---------+------+------+-------+ | fluconazole | | | | 09/2 | | Activ | | (DIFLUCAN) 150 MG | | | | 6/20 | | e | | tablet | | | | 15 | | | + + +--------+---------+------+------+-------+ | ketoconazole | | | | 09/2 | | Activ | | (NIZORAL) 2 % | | | | 0/20 | | e | | shampoo | | | | 15 | | | + + +--------+---------+------+------+-------+ | L-methylfolate | | | | 08/1 | | Activ | | (DEPLIN) 15 MG | | | | 3/20 | | e | | tablet | | | | 15 | | | + + +--------+---------+------+------+-------+ | SYNTHROID 50 MCG | | | | 07/3 | | Activ | | tablet | | | | 0/20 | | e | | | | | | 15 | | | + + +--------+---------+------+------+-------+ | ARMOUR THYROID 15 | | | | 09/2 | | Activ | | MG tablet | | | | 5/20 | | e | | | | | | 15 | | | + + +--------+---------+------+------+-------+ | ARMOUR THYROID 30 | | | | 08/2 | | Activ | | MG tablet | | | | 8/20 | | e | | | | | | 15 | | | + + +--------+---------+------+------+-------+ | metoprolol | | | | 07/1 | | Activ | | (TOPROL-XL) 50 MG 24 | | | | 5/20 | | e | | hr tablet | | | | 15 | | | + + +--------+---------+------+------+-------+ | tamsulosin | | | | 10/0 | | Activ | | (FLOMAX) 0.4 MG | | | | 20 | | e | | capsule | | | | 15 | | | + + +--------+---------+------+------+-------+ | warfarin | | | | 08/2 | | Activ | | (COUMADIN) 5 MG | | | | 8/20 | | e | | tablet | | | | 15 | | | + + +--------+---------+------+------+-------+ | fluticasone | 1 spray by Each Nare | 16 g | 12 | 10/0 | | Activ | | (FLONASE) 50 MCG/ACT | route daily. | | | 7/20 | | e | | nasal | | | | 15 | | | + + +--------+---------+------+------+-------+ Active Problems + + + | Problem | Noted Date | + + + | Nasal obstruction | 02/25/2015 | + + + | Nasal septal deviation | 02/25/2015 | + + + Social History + +-------+ +--------+------+ | Tobacco Use | Types | Packs/Day | Years | Date | | | | | Used | | + +-------+ +--------+------+ | Never Smoker | | | | | + +-------+ +--------+------+ + + +---------+ + | Alcohol Use | Drinks/We | oz/Week | Comments | | | ek | | | + + +---------+ + | No | 0 | 0.0 | | | | Standard | | | | | drinks or | | | | | | | | | | equivalen | | | | | t | | | + + +---------+ + + + + | Sex Assigned at | Date Recorded | | | | + + + | Not on file | | + + + Last Filed Vital Signs + + + + | Vital Sign | Reading | Time Taken | + + + + | Blood Pressure | 112/68 | 02/25/2015 1:58 PM PDT | + + + + | Pulse | - | - | + + + + | Temperature | 36.8 C (98.3 F) | 02/25/2015 1:58 PM PDT | + + + + | Respiratory Rate | - | - | + + + + | Oxygen Saturation | - | - | + + + + | Inhaled Oxygen | - | - | | Concentration | | | + + + + | Weight | 106.6 kg (235 lb) | 02/25/2015 1:58 PM PDT | + + + + | Height | 195.6 cm (6' 5") | 02/25/2015 1:58 PM PDT | + + + + | Body Mass Index | 27.87 | 02/25/2015 1:58 PM PDT | + + + + Plan of Treatment + + + + + | Health Maintenance | Due Date | Last Done | Comments | + + + + + | Vaccine: | | | | | Dtap/Tdap/Td (1 - | 5 | | | | Tdap) | | | | + + + + + | Vaccine: Zoster (1 | | | | | of 2) | 6 | | | + + + + + | Vaccine: | | | | | Pneumococcal 65+ | 1 | | | | Low/Medium Risk (1 | | | | | of 2 - PCV13) | | | | + + + + + | Vaccine: Influenza | | | | | (Season Ended) | 0 | | | + + + + + Results Not on filefrom Last 3 Months Insurance + +--------+ +------+-------+ + | Payer | Benefi | Subscriber | Type | Phone | Address | | | t Plan | ID | | | | | | / | | | | | | | Group | | | | | + +--------+ +------+-------+ + | MEDICARE | MEDICA | [id number] | | | [address] | | | RE | | | | [place] [address] | | | IP-OP | | | | | + +--------+ +------+-------+ + | AETNA | AETNA | [id number] | | | | | | - GEHA | | | | | + +--------+ +------+-------+ + + +--------+ +--------+ + + | Guarantor Name | Accoun | Relation to | Date | Phone | Billing Address | | | t Type | Patient | of | | | | | | | | | | + +--------+ +--------+ + + | PRABHJOT CASTANEDA | Person | Self [birth year] | Home: | [facility] [address] | | | al/Fam | | 1946 | [phone] | [place] | | | [place] | | | [address] | [phone] | + +--------+ +--------+ + +
--- OUTSIDE RECORDS SUMMARY | ~2019-10-21 | XMS | Encounter Summary ---
Demographics + + + | Address | [address] | | | [place] [address] | + + + | Home Phone [...] [facility] | | | and Jose Enriqueana | + + + | Organization | [facility] [...] [address] | | | [address] | | [address], [place] | | | | | [address] | | + + + + + | Rickey Bui | ECON | [address] [place], [place] | | | | | [address] | | + + + + + Care Team Providers + +------+ + | Care Roughing Mill Operator Name | Role | Phone | [...] Other | | 2015 | | [facility] | MD Conch[address] | | | | | [address] | [place] [address] | | | | | [place] [address] [place] | [place] [address] | | | | | [address] | [phone] | | | | | [phone] | | | +--------+ + + + [...]
--- OUTSIDE RECORDS SUMMARY | ~2019-10-21 | XMS | Encounter Summary ---
Demographics + + + | Address | [address] | | | [place] [address] | + + + | Home Phone | | + + + | Preferred Language | Unknown | + + + | Marital Status | | + + + | Mandaen Affiliation | 1009 | + + + | Race | Unknown | + + + | Ethnic Group | Unknown | + + + Author + + + | Author | [facility] | | | and Jose Enriqueana | + + + | Organization | [facility] | [...] [address] | | | [address] | | [address], [place] | | | | | [address] | | + + + + + | Rickey Bui | ECON | [address] [place], [place] | | | | | [address] | | + + + + + Care Team Providers + +------+ + | Care Airborne Sensor Specialist Name | Role | Phone | + +------+ + | Tayo Robles DO | PCP | | + +------+ + Reason for Visit + + + | Reason | Comments | + + + | Atrial Fibrillation | | + + + | Hospital Follow-up | | + + + Encounter Details +--------+---------+ + + + | Date | Type | Department | Care Team | Description | +--------+---------+ + + + | 06/30/ | Office | [facility] | Rickey Galvan MD | Atrial | | 2015 | Visit | [facility]Y [facility] | [address] | fibrillation/atrial | | | | HI[address] | [address] [place], | flutter | | | | [address] | [place] [address] | | | | | [address] | [phone] | | | | | [phone] | | | +--------+---------+ + + + [...] + + + | Blood Pressure | 134/84 | 06/30/2014 1:14 PM | left | | | | PST | | + + + + + | Pulse | 73 | 06/30/2014 1:14 PM | reg | | | | PST | | [...] + + + + | Weight | 111.6 kg (246 lb) | 06/30/2014 1:14 PM | | | | | PST | | + + + + + | Height | 177.8 cm (5' 10") | 06/30/2014 1:14 PM | | | | | PST | | + + + + + | Body Mass Index | 35.3 | 06/30/2014 1:14 PM | | | | | PST | | + + + + + documented in this encounter Progress Notes Rickey Galvan MD - 06/30/2014 1:55 PM PST [facility] [address] [place] [address] Patient Name: Prabhjot Bui Date: 1945 Date of Service: 06/30/2014 CHIEF COMPLAINT: Atrial fibrillation, atrial flutter ASSESSMENT AND PLAN Atrial fibrillation/atrial flutter The patient has been doing well since his ablation procedure. He did have about 5 days of arrhythmia. He was sick during this time. I've reviewed the strips from his pacemaker whic h show that he was having atrial flutter. Otherwise, he has remained in sinus rhythm. If h e continues to remain in sinus rhythm over the next month, he will discontinue the amiodaron e. HISTORY OF PRESENT ILLNESS 68 y.o. year old male with a history of atrial fibrillation and underwent prior ablation pr ocedure in [place]. Years later, the patient developed significant aortic valve disease an d was having a recurrence of his atrial fibrillation. He underwent aortic valve replacement and combined radiofrequency and trauma is ablation procedure. He remained in sinus rhythm for only a few months and then had recurrence of his atrial arrhythmia. The patient present ed on April 30, 2014 for EP study and catheter ablation. The patient underwent ablation which included pulmonary vein isolation was targeted ablation of complex fractionated electr ograms. He underwent ablation of caval tricuspid isthmus for atrial flutter as well as abla tion within the coronary sinus for atrial flutter. Since his ablation procedure, the patient has done overall well. He states that his energy level is much improved. He did have a 5 day period where he began noticing some palpitatio ns and lightheadedness. Notably, the patient had a viral illness at the time. The patient denies any chest pain or shortness of breath. He had some mild bruising from the access for the procedure. Current Outpatient Prescriptions Medication Sig amiodarone (PACERONE) 200 mg tablet Take 1 tablet by mouth Daily. anastrozole (ARIMIDEX) 1 mg tablet Take 0.25 tablets by mouth every 7 days. MONDAYS Cholecalciferol ([employer] VITAMIN D) 2000 UNITS CAPS Take 4,000 Units by mouth Daily. clonidine (CATAPRES) 0.2 MG tablet TAKE 1 TABLET TWICE A DAY Coenzyme Q10 (EQL COQ10) 200 MG CAPS Take 200 mg by mouth Daily. Cyanocobalamin 1000 MCG/ML KIT Inject as directed Every 3 days. DHEA 25 MG CAPS Take 25 mg by mouth Daily. DIGOX 250 MCG tablet TAKE 1 TABLET DAILY fish oil 1,000 mg capsule Take 1,000 mg by mouth Daily. Fluconazole (DIFLUCAN PO) Take by mouth. fluticasone (FLONASE) 50 mcg/nasal spray 1 spray by Nasal route Daily. Garlic 1000 MG CAPS Take 1,000 mg by mouth Daily. DARINEL PEOPLES PO Take 250 mg by mouth nightly. ketoconazole (NIZORAL) 2% shampoo L-Methylfolate 15 MG TABS Take 7.5 mg by mouth 2 times daily. magnesium sulfate 500 mg/mL injection Inject into the muscle Twice a week. Monday AND MONDAYAs directed Magnesium-Zinc (MAGNESIUM-CHELATED ZINC) 133.33-5 MG TABS Take 1 tablet by mouth Daily. Melatonin-Pyridoxine (MELATIN) 3-1 MG TABS Take 1 mg by mouth nightly. metoprolol succinate (TOPROL-XL) 50 mg 24 hr tablet Take 1 tablet by mouth 2 times eduin y. NADH Disodium POWD 20 mg by Does not apply route Daily. non-formulary medication prevegan 10 mg 1 capsule [...] mg by mouth. 75mg in am and 60mg in pm UNABLE TO FIND Take 25 mg by mouth Daily. Med Name: IdODRIAL UNCODED MEDICATION Diagnosis: Obstructive Sleep Apnea ICD-9: 327.23 Length of Need: 99 Months warfarin (COUMADIN) 5 mg tablet Take by mouth See Admin Instructions. As directed by P CP Allergies Allergen Reactions Flecainide Other (See Comments) AFTER 1ST ABLATION, HAD LEG SWELLING, INCREASED HEART RATE Amoxicillin Rash Prabhjot has a past medical history of Paroxysmal atrial fibrillation (HCC); Aortic insufficie ncy and aortic stenosis; Hypertension; Diverticular disease; Colon polyp (1989); Aortic root dilation (HCC); Elevated bilirubin; Leg swelling; Phlebitis; History of echocardiogram; His tory of biopsy; SOB (shortness of breath); Atrial fibrillation (HCC); Pacemaker; Thyroid dis ease; Sleep apnea; Asthma; Varicose veins; and TIA (transient ischemic attack) (LAST 2009 OR 2010). Past Medical, Surgical, Family, and Social History are reviewed and updated today in EMR. Pertinent recommendations are made in the assessment and plan. 14 point ROS was completed and found to be unremarkable apart from the following: None PHYSICAL EXAM BP 134/84 | Pulse 73 | Ht 1.778 m (5' 10") | Wt 111.585 kg (246 lb) | BMI 35.30 kg/m2 Body mass index is 35.3 kg/(m^2). General: Pleasant appearing in no acute distress HEENT: Moist mucous membranes, no cyanosis or pallor. Neck: No JVD. Chest: Normal respiratory effort, Bilaterally clear to auscultation. Heart: Regular rhythm. 2/6 systolic murmur. No RV heave Abdomen: Soft, NT Extremities: No cyanosis, clubbing or edema. 2+ peripheral pulses in both upper and lower extremities Neuro: Alert and oriented Skin: No rashes. Warm, dry. OBJECTIVE DATA Lab Results Component Value Date WBC 8.6 05/01/2014 HGB 14.0 05/01/2014 HCT 42.6 05/01/2014 PLT 142* 05/01/2014 CHOL 124 10/15/2010 TRIG 49 10/15/2010 HDL 44 10/15/2010 ALT 26 03/07/2013 AST 27 03/07/2013 NA 139 04/30/2014 K 4.3 04/30/2014 CL 106 04/30/2014 CREA 0.89 04/30/2014 BUN 13 04/30/2014 CO2 29* 04/30/2014 TSH 0.07* 03/07/2013 INR 2.2* 05/01/2014 EKG: Atrial paced rhythm at a rate of 73 bpm. Nonspecific T-wave inversions in the inferio r leads which are chronic. Prolonged AR interval OTHER OBJECTIVE DATA: Patient has remained predominantly in sinus rhythm since his ablation procedure. He did have. Mode switching which occurred in late May to early June. Review of the electrograms shows atrial flutter at a cycle length of approximately 330-350 ms. Note: This report was partially dictated with the use of voice recognition software. It may contain inadvertent spelling or grammatical errors which were not detected in the editing p [employer]. Should you have any questions or concerns, please do not hesitate to contact me dire ctly. Thank you for allowing me to participate in the care of Prabhjot Bui. Warmest regards, Rickey Galvan MD 06/30/2014 13:55 documented in this enco unter Plan of Treatment +--------+---------+ + + + | Date | Type | Specialty | Care Team | Description | +--------+---------+ + + + | 10/30/ | Office | Sleep Medicine | Rickey Zaragoza PA | | | 2019 | Visit | | [address] | | | | | | [place] | | | | | | [id number] | | | | | | | | +--------+---------+ + + + documented as of this encounter Procedures + +--------+ + + + | Procedure Name | Priori | Date/Time | Associated Diagnosis | Comments | | | ty | | | | + +--------+ + + + | ECG 12 LEAD - PB | Routin | 06/30/2014 | Atrial | Results for this | | | e | 1:30 PM | fibrillation/atrial | procedure are in the | | | | PST | flutter | results section. | + +--------+ + + + documented in this encounter Results ECG 12 lead (06/30/2014 1:30 PM PST) + + + | Narrative | Performed At | + + + | Earl Sigala CMA 06/30/2014 13:30 See scanned tracing for | | | the provider's interpretation of EKG. | | + + + documented in this encounter Visit Diagnoses + + | Diagnosis | + + | Atrial fibrillation/atrial flutter Atrial fibrillation | + + documented in this encounter
--- OUTSIDE RECORDS SUMMARY | ~2019-10-21 | XMS | Encounter Summary ---
Demographics + + + | Address | [address] | | | [place] [address] | + + + | Home Phone | | + + + | Preferred Language | Unknown | + + + | Marital Status | | + + + | Sikhism Affiliation | 1009 | + + + | Race | Unknown | + + + | Ethnic Group | Unknown | + + + Author + + + | Author | [facility] | | | and Jose Enriqueana | + + + | Organization | [facility] | | | and Jose Enriqueana | + + + | Address | Unknown | + + + | Phone | Unavailable | + + + Support + + + + + | Name | Relationship | Address | Phone | + + + + + | Sharlene Lagunas | ECON | [address] | | | [address] | | [address], [place] | | | | | [address] | | + + + + + | Rickey Bui | ECON | [address] [place], [place] | | | | | [address] | | + + + + + Care Team Providers + +------+ + | Care Physician Scribe Name | Role | Phone | + +------+ + PCP | Unavailable | + +------+ + Encounter Details +--------+ + + + + | Date | Type | Department | Care Team | Description | +--------+ + + + + | 08/21/ | Hospital | [facility] | | | | 1996 | Encounter | MED [facility] ICU [address] | | | | | | [place], | | | | | | [place] [address] | | | | | | [phone] | | | +--------+ + + + [...] SERVIN | | | | | | [address] | | | | | | | | +--------+---------+ + + + documented as of this encounter Visit Diagnoses Not on filedocumented in this encounter"
--- OUTSIDE RECORDS SUMMARY | ~2019-10-21 | XMS | Encounter Summary ---
Demographics + + + | Address | [address] | | | [place] [address] | + + + | Home Phone [...] Author | [facility] | | | and Jose Enriqueana | + + + | Organization | [facility] | | | and Jose Enriqueana | + + + | Address | Unknown | + + + | Phone | Unavailable | + + + Support + + + + + | Name | Relationship | Address | Phone | + + + + + | Sharlene Lagunas | ECON | [address] | | | [place] | | [address], [place] | | | | | [address] | | + + + + + | Rickey Bui | ECON | [address], [place] | | | | | [address] | | + + + + + Care Team Providers + +------+ + | Care Vp Strategic Partnerships Name | Role | Phone | + +------+ + | Luna Larson | PCP | | | PA | | | + +------+ + Reason for Visit + + + | Reason | Comments | + + + | Device Check | pre appointment | | (Remote) | | + + + Encounter Details +--------+ + + + + | Date | Type | Department | Care Team | Description | +--------+ + + + + | 08/14/ | Telephone | [facility] | Joel Moise | Device Check | | 2019 | | [facility] [place] | MD [address] | (Remote) (pre | | | | [address] | [address] | appointment) | | | | [address] [place], [place] | [place] [address] | | | | | [address] | [phone] | | | | | [phone] | | | +--------+ + + + [...] SERVIN | | | | | | [id number] | | | | | | | | +--------+---------+ + + + documented as of this encounter Visit Diagnoses Not on filedocumented in this encounter"
--- OUTSIDE RECORDS SUMMARY | ~2019-10-21 | XMS | Encounter Summary ---
Demographics + + + | Address | [address] | | | [place] [address] | + + + | Home Phone [...] | Author | [facility] | | | and Jose Enriqueana | + + + | Organization | [facility] | | | and Jose Enriqueana | + + + | Address | Unknown | + + + | Phone | Unavailable | + + + Support + + + + + | Name | Relationship | Address | Phone | + + + + + | Sharlene Lagunas | ECON | [address] | | | [address] | | [address], [place] | | | | | [address] | | + + + + + | Rickey Bui | ECON | [address], [place] | | | | | [address] | | + + + + + Care Team Providers + +------+ + | Care Systems Software Developer Name | Role | Phone | + +------+ + | Tayo Robles DO | PCP | | + +------+ + Encounter Details +--------+ + + + + | Date | Type | Department | Care Team | Description | +--------+ + + + + | 10/15/ | Orders Only | [facility] | Joel Moise | | | 2010 | | [facility] | MD [address] | | | | | [place] | [address] | | | | | [facility] [address] | [place] [address] | | | | | [address] | [phone] | | | | | [phone] | | | +--------+ + + + [...] SERVIN | | | | | | [address] | | | | | | | [...]
--- OUTSIDE RECORDS SUMMARY | ~2019-10-21 | XMS | Encounter Summary ---
Demographics + + + | Address | [address] | | | [place] [address] | + + + | Home Phone | | + + + | Preferred Language | Unknown | + + + | Marital Status | | + + + | Spiritism Affiliation | [id number] | + + + | Race | Unknown | + + + | Ethnic Group | Unknown | + + + Author + + + | Author | [facility] | | | and Jose Enriqueana | + + + | Organization | [facility] | | | [...] [address] | | | [place] | | [place], [place] | | | | | [address] | | + + + + + | Rickey Bui | ECON | [address] [place], [place] | | | | | [address] | | + + + + + Care Team Providers + +------+ + | Care Fork Truck Driver Name | Role | Phone | + +------+ + | Tayo Robles DO | JULISSA | | + +------+ + Encounter Details +--------+---------+ + + + | Date | Type | Department | Care Team | Description | +--------+---------+ + + + | 04/30/ | Surgery | [facility] | Rickey Galvan MD | A-FIB ABLATION W/IVETTE | | 2014 | [facility] | [address] | AND SHAYNA W/DR | | | | ELECTROPHYSIOLOGY | [address] [place], | [place] | | | | [address] | [place] [address] | | | | | [place], [place] | [phone] | | | | | [address] | | | | | | [phone] | | | +--------+---------+ + + + [...] + + + | Blood Pressure | 145/78 | 05/01/2014 11:31 AM | | | | | PST | | + + + + + | Pulse | 82 | 05/01/2014 11:31 AM | | | | | PST | | + + + + + | Temperature | 36.6 C (97.8 F) | 05/01/2014 11:31 AM | | | | | PST | | + + + + + | Respiratory Rate | 20 | 05/01/2014 11:31 AM | | | | | PST | | + + + + + | Oxygen Saturation | 98% | 05/01/2014 11:31 AM | | | | | PST | | + + + + + | Inhaled Oxygen | - | - | | | Concentration | | | | + + + + + | Weight | 110.5 kg (243 lb 9.7 | 04/30/2014 10:07 PM | | | | oz) | PST | | + + + + + | Height | 177.8 cm (5' 10") | 04/30/2014 9:41 AM | | | | | PST | | + + + + + | Body Mass Index | 34.95 | 04/30/2014 9:41 AM | | | | | PST | | + + + + + documented in this encounter Discharge Magdi Mckinnon RN - 05/01/2014 4:25 PM PSTDischarge instructions in hand, pt. to transp ort off unit via W/C with transporter. Amiodarone PO & Coumadin PO doses given for this evening's dose. Pt. & spouse are staying overnight at the [facility] & will not have access to their meds or Rxs until tomorrow. Aspen Nichole NP aware. Questions answered, belongings in hand. Tele and IV already Dc'd by day RN. Pt. stable, denies pain &/or C.P. Electronically s igned by Magdi Baker RN at 05/01/2014 4:29 PM Joel Hawley MD - 05/01/2014 3:08 PM PST PATIENT NAME: Prabhjot Bui : 1945: AGE: 68 y.o. ADMISSION DATE: 04/30/2014 DISCHARGE DATE: 05/01/2014 PRIMARY CARE: HIEN Baires DISCHARGE SUMMARY Principal Hospital Problem/Admission Diagnoses: Recurrent atrial fibrillation Discharge Diagnoses: 1. S/P atrial fibrillation and atrial flutter ablation A. Restarting amiodarone due to recurrent flutter at end of case requiring cardioversion. Hospital Course: 68-year-old with history of atrial fibrillation, for which he underwent an ablation procedu re in [place] 11 years ago. Apparently he had a somewhat complicated course following his ablation, but was put on amiodarone which worked for several years. He had aortic valve cordell trevor done subsequent to that with a right and left cryo- and radiofrequency energy Maze proc edure. He only maintained sinus rhythm for couple months. He's recently had a recurrence of his atrial fibrillation. He was seen recently in the office by Dr. Galvan, and has agreed to repeat ablation. Patient was taken to the EP lab on the day of admission. He underwent an EP study and abla tion for both atrial fibrillation and flutter. He did have some recurrent flutter at the en d of the procedure, requiring cardioversion. He was then admitted to the telemetry unit pos t procedure. The patient remained in normal sinus rhythm following the procedure. Based on his recurren t flutter at the end of the procedure, Dr. Kunz was consulted regarding antiarrhythmic t herapy. The patient declined to take sotalol, secondary to previous reaction where it "made him angry". He also declined to take it at night, as he states it makes his legs swell. W ith limited additional choices, he was placed back on the amiodarone. His INR the day disch arge was therapeutic. He will resume Coumadin his usual dose. Patient was discharged home on the afternoon of May 01, 2014. Follow-Up: Rickey Galvan MD [address] [facility] [address] June 30, 2014 at 1:20 pm. Disposition: Home/Self Care Condition at Discharge: Stable Discharge Medications As of 05/01/2014 15:08 New Medications Details amiodarone 200 mg tablet Take 1 tablet by mouth Daily. aka: PACERONE colchicine 0.6 mg tablet Take 1 tablet by mouth Daily. omeprazole 20 mg capsule Take 1 capsule by mouth every morning (before breakfast). aka: priLOSEC Unchanged Medications Details anastrozole 1 mg tablet Take 0.25 tablets by mouth every 7 days. MONDAYS aka: ARIMIDEX ARMOUR THYROID 60 MG tablet Generic drug: thyroid Take 60 mg by mouth. 75mg in am and 60mg in pm clonidine 0.2 MG tablet TAKE 1 TABLET TWICE A DAY aka: CATAPRES CVS VITAMIN D 2,000 units capsule Generic drug: cholecalciferol Take 4,000 Units by mouth Daily. Cyanocobalamin 1000 MCG/ML Kit Inject as directed Every 3 days. DEPO-TESTOSTERONE IM Twice a week. DHEA 25 MG Caps Take 25 mg by mouth Daily. DIGOX 250 mcg tablet Generic drug: digoxin TAKE 1 TABLET DAILY EQL COQ10 200 MG Caps Generic drug: Coenzyme Q10 Take 200 mg by mouth Daily. fish oil 1,000 mg capsule Take 1,000 mg by mouth Daily. FLOMAX 0.4 mg Caps Generic drug: tamsulosin Take 0.4 mg by mouth daily (after breakfast). Garlic 1000 MG Caps Take 1,000 mg by mouth Daily. DARINEL PEOPLES PO Take 250 mg by mouth nightly. L-Methylfolate 15 MG Tabs Take 7.5 mg by mouth 2 times daily. magnesium sulfate 500 mg/mL injection Inject into the muscle Twice a week. Monday AND MONDAYAs directed Magnesium-Chelated Zinc 133.33-5 MG Tabs Take 1 tablet by mouth Daily. MELATIN 3-1 MG Tabs Generic drug: Melatonin-Pyridoxine Take 1 mg by mouth nightly. metoprolol succinate 50 mg 24 hr tablet Take 50 mg by mouth 2 times daily. aka: TOPROL-XL NADH Disodium Powd 20 mg by Does not apply route Daily. non-formulary medication prevegan 10 mg 1 capsule daily SYNTHROID 50 mcg tablet Generic drug: levothyroxine Take 1 tablet by mouth Daily. TAURINE PO Take 1,500 mg by mouth 2 times daily. Six caps daily; UNABLE TO FIND Take 25 mg by mouth Daily. Med Name: IdODRIAL UNCODED MEDICATION Diagnosis: Obstructive Sleep Apnea ICD-9: 327.23 Length of Need: 99 Months warfarin 5 mg tablet Take by mouth See Admin Instructions. As directed by PCP aka: COUMADIN Procedures In Hospital: 1. EPS and ablation for atrial fibrillation/flutter 04/30/[address] Galvan: PROCEDURES: 1. Comprehensive electrophysiology study. 2. Coronary sinus catheter replacement with pacing and recording. 3. IV heparin adminis tration. 4. Intracardiac echocardiography. 5. Transeptal puncture. 6. 3D mapping with [facility] [facility] NavX mapping system. 7. Ablation for atrial fibrillation, including pulmonary vein isolation and targeted abla tion of complex fractionated electrograms. 9. Ablation of cavotricuspid isthmus for atria l flutter. 10. Ablation in coronary sinus for atrial flutter. 11. External cardioversion with 250 joules synchronized. Discharge Exam: Vital Signs: Temp: 36.6 C (97.8 F) BP: 145/78 mmHg Pulse: 82 Resp: 20 SpO2: 98 % Last Wt. Before discharge: Weight: 110.5 kg (243 lb 9.7 oz) Wt. Admission: Weight: 106.595 kg (235 lb) Examined by Dr. Kunz on the day of discharge. Labs: Recent Labs Basename 05/01/14 0247 04/30/14 0845 04/30/14 0843 WBC 8.6 -- 6.1 HGB 14.0 -- 15.6 HCT 42.6 -- 45.6 NA -- 139 -- K -- 4.3 -- CL -- 106 -- CO2 -- 29* -- BUN -- 13 -- CREA -- 0.89 -- GLU -- 102* -- CALCIUM -- 9.4 -- INR 2.2* -- 2.1* PT -- -- -- PTT -- -- -- CKMB -- -- -- TROPONINI -- -- -- BNP -- -- -- Lab Results Component Value Date CHOL 124 10/15/2010 LDL 70 10/15/2010 HDL 44 10/15/2010 TRIG 49 10/15/2010 AVS Discharge Instructions: Discharge Instructions Resume usual home medications. New medications at time of discharge include: Amiodarone 200 mg twice daily for 2 weeks and then once daily, colchicine daily for one month, omeprazole daily for one month. No strenuous activity for 3-4 days secondary to your access sites. Follow-up as noted. Discharge References/Attachments DISCHARGE INSTRUCTIONS FOR CARDIAC ABLATION (UKRAINIAN) AMIODARONE HYDROCHLORIDE ORAL TABLET (UKRAINIAN) If patient has any further questions or concerns prior to above, instructed to call our off ice. Time spent on discharge planning:greater than 30 minutes Signed by: HIEN Hansen 05/01/2014, 15:08 Case discussed with Aspen Martinez and the D/C summary has been reviewed and I agree. Joel Kunz MD documented in thi s encounter Discharge Instructions Instructions Aspen Martinez ARNP - 05/01/2014Resume usual home medications. New medications at time of discharge include: Amiodarone 200 mg twice daily for 2 weeks and then once daily, colchicine daily for one month, omeprazole daily for one month. No strenuous activity for 3-4 days secondary to your access sites. Follow-up as noted. AttachmentsThe following attachments cannot be sent through Care Everywhere.DISCHARGE INSTR UCTIONS FOR CARDIAC ABLATION (UKRAINIAN)AMIODARONE HYDROCHLORIDE ORAL TABLET (UKRAINIAN)document ed in this encounter Medications at Time of [...] + + documented as of this encounter Progress Notes Sindhu Shaw RN - 05/01/2014 12:[address] KUNZ TO ROUND. PACER INTERRO GATED AND RATE CHANGED.. PROB HOME LATER TODAY. S/P ABLATION FAILED CV.. BREAKTHROUGH FIB ON NOCS X 3. INR 2.2. NO C/O PAIN 1 2:47 PM PSTdocumented in this encounter Plan of Treatment +--------+---------+ + + + | Date | Type | Specialty | Care Team | Description | +--------+---------+ + + + | 10/30/ | Office | Sleep Medicine | Rickey Zaragoza PA | | | 2020 | Visit | | [address] | | | | | | [place] | | | | | | [phone] | | | | | | | | +--------+---------+ + + + + + +--------+ + + | Name | Type | Priori | Associated Diagnoses | Date/Time | | | | ty | | | + + +--------+ + + | EP Ablation | Cardiac | Routin | | 04/30/2014 6:23 PM | | | Services | e | | PST | + + +--------+ + + + + +--------+ + + | Name | Type | Priori | Associated Diagnoses | Order Schedule | | | | ty | | | + + +--------+ + + | EP Ablation | Cardiac | Routin | | One time imaging One | | | Services | e | | time imaging for 1 | | | | | | Occurrences starting | | | | | | 04/30/2014 until | | | | | | 04/30/2014 | + + +--------+ + + documented as of this encounter Procedures + +--------+ + + + | Procedure Name | Priori | Date/Time | Associated Diagnosis | Comments | | | ty | | | | + +--------+ + + + | ECG 12 LEAD | Routin | 05/01/2014 | | Results for this | | | e | 5:04 AM | | procedure are in the | | | | PST | | results section. | + +--------+ + + + | PROTIME INR | Routin | 05/01/2014 | | Results for this | | | e | 2:47 AM | | procedure are in the | | | | PST | | results section. | + +--------+ + + + | CBC NO DIFFERENTIAL | Routin | 05/01/2014 | | Results for this | | | e | 2:47 AM | | procedure are in the | | | | PST | | results section. | + +--------+ + + + | RT EXTUBATION | Routin | 04/30/2014 | | | | | e | 6:40 PM | | | | | | PST | | | + +--------+ + + + | POCT ACTIVATED | Routin | 04/30/2014 | | Results for this | | CLOTTING TIME | e | 6:28 PM | | procedure are in the | | | | PST | | results section. | + +--------+ + + + | POCT ACTIVATED | Routin | 04/30/2014 | | Results for this | | CLOTTING TIME | e | 6:13 PM | | procedure are in the | | | | PST | | results section. | + +--------+ + + + | POCT ACTIVATED | Routin | 04/30/2014 | | Results for this | | CLOTTING TIME | e | 5:38 PM | | procedure are in the | | | | PST | | results section. | + +--------+ + + + | POCT ACTIVATED | Routin | 04/30/2014 | | Results for this | | CLOTTING TIME | e | 5:15 PM | | procedure are in the | | | | PST | | results section. | + +--------+ + + + | POCT ACTIVATED | Routin | 04/30/2014 | | Results for this | | CLOTTING TIME | e | 4:46 PM | | procedure are in the | | | | PST | | results section. | + +--------+ + + + | POCT ACTIVATED | Routin | 04/30/2014 | | Results for this | | CLOTTING TIME | e | 4:22 PM | | procedure are in the | | | | PST | | results section. | + +--------+ + + + | POCT ACTIVATED | Routin | 04/30/2014 | | Results for this | | CLOTTING TIME | e | 3:58 PM | | procedure are in the | | | | PST | | results section. | + +--------+ + + + | POCT ACTIVATED | Routin | 04/30/2014 | | Results for this | | CLOTTING TIME | e | 3:28 PM | | procedure are in the | | | | PST | | results section. | + +--------+ + + + | POCT ACTIVATED | Routin | 04/30/2014 | | Results for this | | CLOTTING TIME | e | 3:12 PM | | procedure are in the | | | | PST | | results section. | + +--------+ + + + | POCT ACTIVATED | Routin | 04/30/2014 | | Results for this | | CLOTTING TIME | e | 2:52 PM | | procedure are in the | | | | PST | | results section. | + +--------+ + + + | POCT ACTIVATED | Routin | 04/30/2014 | | Results for this | | CLOTTING TIME | e | 2:33 PM | | procedure are in the | | | | PST | | results section. | + +--------+ + + + | ABLATION - | | 04/30/2014 | Atrial | | | AFIB/AFLUTTER/AVNRT/ | | 1:18 PM | fibrillation (HCC) | | | SVT/WPW W/ SHAYNA | | PST | | | | ([id number]) | | | | | + +--------+ + + + | BASIC METABOLIC | Routin | 04/30/2014 | | Results for this | | PANEL | e | 8:45 AM | | procedure are in the | | | | PST | | results section. | + +--------+ + + + | PROTIME INR | Routin | 04/30/2014 | | Results for this | | | e | 8:43 AM | | procedure are in the | | | | PST | | results section. | + +--------+ + + + | CBC NO DIFFERENTIAL | Routin | 04/30/2014 | | Results for this | | | e | 8:43 AM | | procedure are in the | | | | PST | | results section. | + +--------+ + + + documented in this encounter Results ECG 12 lead (05/01/2014 5:04 AM PST) + + | Specimen | + + | | + + + + + | Narrative | Performed At | + + + | RR Interval: | [facility] | | msP-R Interval: msQRSD Interval: msQT Interval: msQTC | [facility] | | Interval: msHeartrate: bpmP [place]: degQRS [place]: degT Wave [place]: | | | degI: 40 [place]: degT: 40 [place]: degT: 40 [place]: degST [place]: | | | degSeverity: - ABNORMAL ECG -INTERP: ATRIAL-PACED | | | COMPLEXESINTERP: ABNORMAL T, CONSIDER ISCHEMIA, INFERIOR LEADS | | |P [place]: deg | | |QRS [place]: deg | | |T Wave [place]: deg | | |I: 40 [place]: deg | | |T: 40 [place]: deg | | |T: 40 [place]: deg | | |ST [place]: deg | | |Severity: - ABNORMAL ECG - | | |INTERP: ATRIAL-PACED COMPLEXES | | |INTERP: ABNORMAL T, CONSIDER ISCHEMIA, INFERIOR LEADS | | + + + + + | Transcriptions | + + | Stanislaw Tompkins - 05/01/2014 12:00 AM PST | + + + + + + + | Performing | Address | City/State/Zipcode | Phone Number | | Organization | | | | + + + + + | [facility] | [facility] [place]. | [place] [address] | [phone] | + + + + + Protime INR (05/01/2014 2:47 AM PST) + + + + + + | Component | Value | Ref Range | Performed | Pathologist | | | | | At | Signature | + + + + + + | Prothrombin | 24.8 (H) | 12.0 - 14.2 sec | [facility] | | | Time | | [facility] | | | | | | [facility] | | | | | | MEDICAL | | | | | | CENTER | | | | | | LABORATORY | | + + + + + + | INR | 2.2 (H)Comment: Usual | 0.9 - 1.1 | [facility] | | | | oral anticoagulant | | [facility] | | | | range: 2.0 to 3.0 | | HEART | | | | High level oral | | MEDICAL | | | | anticoagulant range: 2.5 | | CENTER | | | | to 3.5 | | LABORATORY | | + + + + + + + + | Specimen | + + | Blood specimen | | (specimen) | + + + + + + + | Performing | Address | City/State/Zipcode | Phone Number | | Organization | | | | + + + + + | [facility] | [address] | [place] [address] | | | [facility] | | | | | LABORATORY | | | | + + + + + CBC no Differential (05/01/2014 2:47 AM PST) + +---------+ + + + | Component | Value | Ref Range | Performed | Pathologist | | | | | At | Signature | + +---------+ + + + | WBC | 8.6 | 3.8 - 11.0 K/uL | [facility] | | | | | | [facility] | | | | | | [facility] | | | | | | MEDICAL | | | | | | CENTER | | | | | | LABORATORY | | + +---------+ + + + | RBC | 4.53 | 4.20 - 5.70 | [facility] | | | | | M/uL | [facility] | | | | | | HE[facility] | | | | | | MEDICAL | | | | | | CENTER | | | | | | LABORATORY | | + +---------+ + + + | Hemoglobin | 14.0 | 13.2 - 17.0 | [facility] | | | | | g/dL | [facility] | | | | | | HEART | | | | | | MEDICAL | | | | | | CENTER | | | | | | LABORATORY | | + +---------+ + + + | Hematocrit | 42.6 | 39.0 - 50.0 % | [facility] | | | | | | [facility] | | | | | | [facility] | | | | | | MEDICAL | | | | | | CENTER | | | | | | LABORATORY | | + +---------+ + + + | MCV | 94.1 | 80.0 - 100.0 fL | [facility] | | | | | | [facility] | | | | | | [facility] | | | | | | MEDICAL | | | | | | CENTER | | | | | | LABORATORY | | + +---------+ + + + | MCH | 31.0 | 27.0 - 34.0 pg | [facility] | | | | | | [facility] | | | | | | [facility] | | | | | | MEDICAL | | | | | | CENTER | | | | | | LABORATORY | | + +---------+ + + + | MCHC | 32.9 | 32.0 - 35.5 | [facility] | | | | | g/dL | [facility] | | | | | | HE[facility] | | | | | | MEDICAL | | | | | | CENTER | | | | | | LABORATORY | | + +---------+ + + + | RDW-CV | 13.8 | 11.0 - 15.5 % | [facility] | | | | | | [facility] | | | | | | [facility] | | | | | | MEDICAL | | | | | | CENTER | | | | | | LABORATORY | | + +---------+ + + + | Platelet | 142 (L) | 150 - 400 K/uL | [facility] | | | Count | | | [facility] | | | | | | [facility] | | | | | | MEDICAL | | | | | | CENTER | | | | | | LABORATORY | | + +---------+ + + + + + | Specimen | + + | Blood specimen | | (specimen) | + + + + + + + | Performing | Address | City/State/Zipcode | Phone Number | | Organization | | | | + + + + + | [facility] | [address] | [place] [address] | | | [facility] | | | | | LABORATORY | | | | + + + + + POCT activated clotting time (04/30/2014 6:28 PM PST) + +---------+ + + + | Component | Value | Ref Range | Performed | Pathologist | | | | | At | Signature | + +---------+ + + + | Activated | 187 (A) | 105 - 167 sec | [facility] | | | Clotting | | | [facility] | | | time, POC | | | HEART | | | | | | MEDICAL | | | | | | CENTER | | | | | | LABORATORY | | + +---------+ + + + | Result | | | [facility] | | | Verified | | | [facility] | | | By: | | | HEART | | | | | | MEDICAL | | | | | | CENTER | | | | | | LABORATORY | | + +---------+ + + + + + | Specimen | + + | Blood specimen | | (specimen) | + + + + + + + | Performing | Address | City/State/Zipcode | Phone Number | | Organization | | | | + + + + + | [facility] | [address] | [place] [address] | | | [facility] | | | | | LABORATORY | | | | + + + + + POCT activated clotting time (04/30/2014 6:13 PM PST) + +---------+ + + + | Component | Value | Ref Range | Performed | Pathologist | | | | | At | Signature | + +---------+ + + + | Activated | 335 (A) | 105 - 167 sec | [facility] | | | Clotting | | | [facility] | | | time, POC | | | HEART | | | | | | MEDICAL | | | | | | CENTER | | | | | | LABORATORY | | + +---------+ + + + | Result | | | [facility] | | | Verified | | | [facility] | | | By: | | | HEART | | | | | | MEDICAL | | | | | | CENTER | | | | | | LABORATORY | | + +---------+ + + + + + | Specimen | + + | Blood specimen | | (specimen) | + + + + + + + | Performing | Address | City/State/Zipcode | Phone Number | | Organization | | | | + + + + + | [facility] | [address] | [place] [address] | | | [facility] | | | | | LABORATORY | | | | + + + + + POCT activated clotting time (04/30/2014 5:38 PM PST) + +---------+ + + + | Component | Value | Ref Range | Performed | Pathologist | | | | | At | Signature | + +---------+ + + + | Activated | 351 (A) | 105 - 167 sec | [facility] | | | Clotting | | | [facility] | | | time, POC | | | HEART | | | | | | MEDICAL | | | | | | CENTER | | | | | | LABORATORY | | + +---------+ + + + | Result | | | [facility] | | | Verified | | | [facility] | | | By: | | | HEART | | | | | | MEDICAL | | | | | | CENTER | | | | | | LABORATORY | | + +---------+ + + + + + | Specimen | + + | Blood specimen | | (specimen) | + + + + + + + | Performing | Address | City/State/Zipcode | Phone Number | | Organization | | | | + + + + + | [facility] | [address] [place] | [place] [address] | | | [facility] | | | | | LABORATORY | | | | + + + + + POCT activated clotting time (04/30/2014 5:15 PM PST) + +---------+ + + + | Component | Value | Ref Range | Performed | Pathologist | | | | | At | Signature | + +---------+ + + + | Activated | 354 (A) | 105 - 167 sec | [facility] | | | Clotting | | | [facility] | | | time, POC | | | HEART | | | | | | MEDICAL | | | | | | CENTER | | | | | | LABORATORY | | + +---------+ + + + | Result | | | [facility] | | | Verified | | | [facility] | | | By: | | | HEART | | | | | | MEDICAL | | | | | | CENTER | | | | | | LABORATORY | | + +---------+ + + + + + | Specimen | + + | Blood specimen | | (specimen) | + + + + + + + | Performing | Address | City/State/Zipcode | Phone Number | | Organization | | | | + + + + + | [facility] | [address] | [place] [address] | | | [facility] | | | | | LABORATORY | | | | + + + + + POCT activated clotting time (04/30/2014 4:46 PM PST) + +---------+ + + + | Component | Value | Ref Range | Performed | Pathologist | | | | | At | Signature | + +---------+ + + + | Activated | 343 (A) | 105 - 167 sec | [facility] | | | Clotting | | | [facility] | | | time, POC | | | HEART | | | | | | MEDICAL | | | | | | CENTER | | | | | | LABORATORY | | + +---------+ + + + | Result | | | [facility] | | | Verified | | | [facility] | | | By: | | | HEART | | | | | | MEDICAL | | | | | | CENTER | | | | | | LABORATORY | | + +---------+ + + + + + | Specimen | + + | Blood specimen | | (specimen) | + + + + + + + | Performing | Address | City/State/Zipcode | Phone Number | | Organization | | | | + + + + + | [facility] | [address] | [place] [address] | | | [facility] | | | | | LABORATORY | | | | + + + + + POCT activated clotting time (04/30/2014 4:22 PM PST) + +---------+ + + + | Component | Value | Ref Range | Performed | Pathologist | | | | | At | Signature | + +---------+ + + + | Activated | 344 (A) | 105 - 167 sec | [facility] | | | Clotting | | | [facility] | | | time, POC | | | HEART | | | | | | MEDICAL | | | | | | CENTER | | | | | | LABORATORY | | + +---------+ + + + | Result | | | [facility] | | | Verified | | | [facility] | | | By: | | | HEART | | | | | | MEDICAL | | | | | | CENTER | | | | | | LABORATORY | | + +---------+ + + + + + | Specimen | + + | Blood specimen | | (specimen) | + + + + + + + | Performing | Address | City/State/Zipcode | Phone Number | | Organization | | | | + + + + + | [facility] | [address] | [place] [address] | | | [facility] | | | | | LABORATORY | | | | + + + + + POCT activated clotting time (04/30/2014 3:58 PM PST) + +---------+ + + + | Component | Value | Ref Range | Performed | Pathologist | | | | | At | Signature | + +---------+ + + + | Activated | 298 (A) | 105 - 167 sec | [facility] | | | Clotting | | | [facility] | | | time, POC | | | HEART | | | | | | MEDICAL | | | | | | CENTER | | | | | | LABORATORY | | + +---------+ + + + | Result | | | [facility] | | | Verified | | | [facility] | | | By: | | | HEART | | | | | | MEDICAL | | | | | | CENTER | | | | | | LABORATORY | | + +---------+ + + + + + | Specimen | + + | Blood specimen | | (specimen) | + + + + + + + | Performing | Address | City/State/Zipcode | Phone Number | | Organization | | | | + + + + + | [facility] | [address] | [place] [address] | | | [facility] | | | | | LABORATORY | | | | + + + + + POCT activated clotting time (04/30/2014 3:28 PM PST) + +---------+ + + + | Component | Value | Ref Range | Performed | Pathologist | | | | | At | Signature | + +---------+ + + + | Activated | 309 (A) | 105 - 167 sec | [facility] | | | Clotting | | | [facility] | | | time, POC | | | HEART | | | | | | MEDICAL | | | | | | CENTER | | | | | | LABORATORY | | + +---------+ + + + | Result | | | [facility] | | [facility] | | | By: | | | HEART | | | | | | MEDICAL | | | | | | CENTER | | | | | | LABORATORY | | + +---------+ + + + + + | Specimen | + + | Blood specimen | | (specimen) | + + + + + + + | Performing | Address | City/State/Zipcode | Phone Number | | Organization | | | | + + + + + | [facility] | [address] | [place] [address] | | | [facility] | | | | | LABORATORY | | | | + + + + + POCT activated clotting time (04/30/2014 3:12 PM PST) + +---------+ + + + | Component | Value | Ref Range | Performed | Pathologist | | | | | At | Signature | + +---------+ + + + | Activated | 305 (A) | 105 - 167 sec | [facility] | | | Clotting | | | [facility] | | | time, POC | | | HEART | | | | | | MEDICAL | | | | | | CENTER | | | | | | LABORATORY | | + +---------+ + + + | Result | | | [facility] | | | Verified | | | [facility] | | | By: | | | HEART | | | | | | MEDICAL | | | | | | CENTER | | | | | | LABORATORY | | + +---------+ + + + + + | Specimen | + + | Blood specimen | | (specimen) | + + + + + + + | Performing | Address | City/State/Zipcode | Phone Number | | Organization | | | | + + + + + | [facility] | [address] | [place] [address] | | | [facility] | | | | | LABORATORY | | | | + + + + + POCT activated clotting time (04/30/2014 2:52 PM PST) + +---------+ + + + | Component | Value | Ref Range | Performed | Pathologist | | | | | At | Signature | + +---------+ + + + | Activated | 315 (A) | 105 - 167 sec | [facility] | | | Clotting | | | [facility] | | | time, POC | | | HEART | | | | | | MEDICAL | | | | | | CENTER | | | | | | LABORATORY | | + +---------+ + + + | Result | | | [facility] | | | Verified | | | [facility] | | | By: | | | HEART | | | | | | MEDICAL | | | | | | CENTER | | | | | | LABORATORY | | + +---------+ + + + + + | Specimen | + + | Blood specimen | | (specimen) | + + + + + + + | Performing | Address | City/State/Zipcode | Phone Number | | Organization | | | | + + + + + | [facility] | [address] | [place] [address] | | | [facility] | | | | | LABORATORY | | | | + + + + + POCT activated clotting time (04/30/2014 2:33 PM PST) + +---------+ + + + | Component | Value | Ref Range | Performed | Pathologist | | | | | At | Signature | + +---------+ + + + | Activated | 267 (A) | 105 - 167 sec | [facility] | | | Clotting | | | [facility] | | | time, POC | | | HEART | | | | | | MEDICAL | | | | | | CENTER | | | | | | LABORATORY | | + +---------+ + + + | Result | | | [facility] | | | Ver[facility] | [facility] | [facility] | | | By: | | | HEART | | | | | | MEDICAL | | | | | | CENTER | | | | | | LABORATORY | | + +---------+ + + + + + | Specimen | + + | Blood specimen | | (specimen) | + + + + + + + | Performing | Address | City/State/Zipcode | Phone Number | | Organization | | | | + + + + + | [facility] | [address] | [place] [address] | | | [facility] | | | | | LABORATORY | | | | + + + + + Basic Metabolic Panel (04/30/2014 8:45 AM PST) + + + + + + | Component | Value | Ref Range | Performed | Pathologist | | | | | At | Signature | + + + + + + | Na | 139 | 135 - 145 | [facility] | | | | | mmol/L | [facility]CR[facility] | | | | | | HEART | | | | | | MEDICAL | | | | | | CENTER | | | | | | LABORATORY | | + + + + + + | K | 4.3 | 3.5 - 5.0 | [facility] | [...] + + + + | CO2 | 29 (H) | 21 - 28 mmol/L | [facility] | | | | | | [facility] | | | | | | HEART | | | | | | MEDICAL | | | | | | CENTER | | | | | | LABORATORY | | + + + + + + | Glucose | 102 (H)Comment: Qatari | 65 - 99 mg/dL | [facility] | | | | Diabetes Association | [...] + + + + | BUN | 13 | 8 - 25 mg/dL | [facility] | | | | | | [facility] | | | | | | HEART | | | | | | MEDICAL | | | | | | CENTER | | | | | | LABORATORY | | + + + + + + | Creatinine | 0.89Comment: IDMS | 0.70 - 1.30 | [facility] | | | | traceable creatinine | mg/dL | SACRED | | | | | | HEART | | | | | | MEDICAL | | | | | | CENTER | | | | | | LABORATORY | | + + + + + + | Calcium | 9.4 | 8.5 - 10.2 | [facility] | | | | | mg/dL | [facility]CRED | | | | | | HEART | | | | | | MEDICAL | | | | | | CENTER | | | | | | LABORATORY | | + + + + + + | Anion Gap | 4 (L) | 5 - 16 mmol/L | [facility] [...] | | | | calculated GFR by | | | | | | 1.210Performed at | | | | | | [facility] | | | | | | [facility], [address] | | | | | | [address] [place] [address] | | | | + + + + + + + + | Specimen | + + | Blood specimen | | (specimen) | + + + + + + + | Performing | Address | City/State/Zipcode | Phone Number | | Organization | | | | + + + + + | [facility] | [address] | [place] [address] | | | [facility] | | | | | LABORATORY | | | | + + + + + Protime INR (04/30/2014 8:43 AM PST) + + + + + + | Component | Value | Ref Range | Performed | Pathologist | | | | | At | Signature | + + + + + + | Prothrombin | 23.4 (H) | 12.0 - 14.2 sec | [facility] | | | Time | | | [facility]CRED | | | | | | HEART | | | | | | MEDICAL | | | | | | CENTER | | | | | | LABORATORY | | + + + + + + | INR | 2.1 (H)Comment: Usual | 0.9 - 1.1 | [facility] | | | | oral anticoagulant | | [facility]CRED | | | | range: 2.0 to 3.0 | | HEART | | | | High level oral | | MEDICAL | | | | anticoagulant range: 2.5 | | CENTER | | | | to 3.5Performed at | | LABORATORY | | | | [facility] | | | | | | [facility], [address] | | | | | | [address] [place] [address] | | | | + + + + + + + + | Specimen | + + | Blood specimen | | (specimen) | + + + + + + + | Performing | Address | City/State/Zipcode | Phone Number | | Organization | | | | + + + + + | [facility] | [address] | [place] [address] | | | HE[facility] | | | | | LABORATORY | | | | + + + + + CBC no Differential (04/30/2014 8:43 AM PST) + + + + + + | Component | Value | Ref Range | Performed | Pathologist | | | | | At | Signature | + + + + + + | WBC | 6.1 | 3.8 - 11.0 K/uL | [facility] | | | | | | [facility] | | | | | | HEART | | | | | | MEDICAL | | | | | | CENTER | | | | | | LABORATORY | | + + + + + + | RBC | 4.92 | 4.20 - 5.70 | [facility] | | | | | M/uL | [facility]CR[facility] | | | | | | HEART | | | | | | MEDICAL | | | | | | CENTER | | | | | | LABORATORY | | + + + + + + | Hemoglobin | 15.6 | 13.2 - 17.0 | [facility] | | | | | g/dL | [facility]CR[facility] | | | | | | HEART | | | | | | MEDICAL | | | | | | CENTER | | | | | | LABORATORY | | + + + + + + | Hematocrit | 45.6 | 39.0 - 50.0 % | [facility] | | | | | | [facility] | | | | | | HEART | | | | | | MEDICAL | | | | | | CENTER | | | | | | LABORATORY | | + + + + + + | MCV | 92.6 | 80.0 - 100.0 fL | [facility] | | | | | | [facility] | | | | | | HEART | | | | | | MEDICAL | | | | | | CENTER | | | | | | LABORATORY | | + + + + + + | MCH | 31.6 | 27.0 - 34.0 pg | [facility] | | | | | | [facility] | | | | | | HEART | | | | | | MEDICAL | | | | | | CENTER | | | | | | LABORATORY | | + + + + + + | MCHC | 34.2 | 32.0 - 35.5 | [facility] | | | | | g/dL | [facility] | | | | | | HEART | | | | | | MEDICAL | | | | | | CENTER | | | | | | LABORATORY | | + + + + + + | RDW-CV | 13.4 | 11.0 - 15.5 % | [facility] | | | | | | [facility] | | | | | | HEART | | | | | | MEDICAL | | | | | | CENTER | | | | | | LABORATORY | | + + + + + + | Platelet | 162Comment: Performed at | 150 - 400 K/uL | [facility] | | | Count | [facility] | | [facility]CR[facility] | | | | [facility], [facility] [address] | | HEART | | | | [address], [place] [address] | | MEDICAL | | | | | | CENTER | | | | | | LABORATORY | | + + + + + + + + | Specimen | + + | Blood specimen | | (specimen) | + + + + + + + | Performing | Address | City/State/Zipcode | Phone Number | | Organization | | | | + + + + + | [facility] | [address] | [place] [address] | | | [facility] | | | | | LABORATORY | | | | + + + + + documented in this encounter Visit Diagnoses + + | Diagnosis | + + | Atrial fibrillation (HCC) Atrial fibrillation | + + documented in this encounter Administered Medications + +--------+ +--------+------+------+ | Medication Order | MAR | Action | Dose | Rate | Site | | | Action | Date | | | | + +--------+ +--------+------+------+ | clonidine (CATAPRES) tablet 0.2 | Given | 05/01/20 | 0.2 mg | | | | mg 0.2 mg, Oral, 2 TIMES DAILY, | | 14 8:42 | | | | | First dose on Wed 14 at | | AM PST | | | | | 2100 | | | | | | + +--------+ +--------+------+------+ +-------+ +--------+---+---+ | Given | 04/30/20 | 0.2 mg | | | | | 14 10:18 | | | | | | PM PST | | | | +-------+ +--------+---+---+ +---+---+ | | | +---+---+ + +-------+ +--------+---+---+ | colchicine tablet 0.6 mg 0.6 | Given | 05/01/20 | 0.6 mg | | | | mg, Oral, DAILY, First dose on | | 14 8:42 | | | | | Clementine 05/01/14 at 0900, Hold for | | AM PST | | | | | diarrhea., Post-op/Phase II | | | | | | + +-------+ +--------+---+---+ +---+---+ | | | +---+---+ + +-------+ +---------+---+---+ | digoxin (LANOXIN) tablet 250 | Given | 05/01/20 | 250 mcg | | | | mcg 250 mcg, Oral, DAILY, First | | 14 8:42 | | | | | dose on Clementine 05/01/14 at 0900 | | AM PST | | | | + +-------+ +---------+---+---+ +---+---+ | | | +---+---+ + +------+ +--------+---+---+ | fentaNYL injection 25-50 mcg | Push | 04/30/20 | 25 mcg | | | | 25-50 mcg, Intravenous, EVERY 5 | | 14 7:48 | | | | | MIN PRN, Pain, Starting Wed | | PM PST | | | | | 04/30/14 at 1840, Maximum total | | | | | | | dose 250 mcg. PACU IV Narcotic | | | | | | | Priority: Only use fentanyl for | | | | | | | immediate post-op pain (one dose) | | | | | | | or breakthrough pain when any | | | | | | | other IV narcotics ordered have | | | | | | | been ineffective (if ordered). | | | | | | | If both morphine and | | | | | | | hydromorphone are ordered, use | | | | | | | morphine first, and use | | | | | | | hydromporphone if morphine | | | | | | | ineffective., Recovery/Phase I | | | | | | + +------+ +--------+---+---+ +---+---+ | | | +---+---+ + +-------+ +---------+---+ + | influenza (FLUARIX, FLUZONE) | Given | 05/01/20 | 0.5 mLs | | Deltoid- | | vaccine injection 0.5 mL 0.5 mL, | | 14 9:14 | | | Left | | Intramuscular, ONE TIME VACCINE, | | AM PST | | | | | Clementine 05/01/14 at 0900, For 1 | | | | | | | dose, Give patient education | | | | | | | information. FLUARIX BRAND | | | | | | | CONTAINS LATEX. Screen for latex | | | | | | | allergy before administration of | | | | | | | FLUARIX. FLUZONE BRAND IS | | | | | | | LATEX-FREE. Shake prior to use., | | | | | | + +-------+ +---------+---+ + +---+---+ | | | +---+---+ + +-------+ +--------+---+---+ | levothyroxine (SYNTHROID, | Given | 05/01/20 | 50 mcg | | | | LEVOTHROID) tablet 50 mcg 50 | | 14 6:22 | | | | | mcg, Oral, DAILY BEFORE | | AM PST | | | | | BREAKFAST, First dose on Clementine | | | | | | | 05/01/14 at 0730, Give before | | | | | | | breakfast., | | | | | | + +-------+ +--------+---+---+ +---+---+ | | | +---+---+ + +-------+ +--------+---+---+ | lidocaine 1% injection PRN, | Given | 04/30/20 | 10 mLs | | | | Starting 04/30/14 at 1415 | | 14 2:15 | | | | | | | PM PST | | | | + +-------+ +--------+---+---+ +---+---+ | | | +---+---+ + +-------+ +-------+---+---+ | metoprolol succinate | Given | 05/01/20 | 50 mg | | | | (TOPROL-XL) ER tablet 50 mg 50 | | 14 8:42 | | | | | mg, Oral, 2 TIMES DAILY, First | | AM PST | | | | | dose on Mon04/30/14 at 2100, | | | | | | | Tablet may be cut where scored | | | | | | | but do not crush., | | | | | | + +-------+ +-------+---+---+ +-------+ +-------+---+---+ | Given | 04/30/20 | 50 mg | | | | | 14 10:18 | | | | | | PM PST | | | | +-------+ +-------+---+---+ +---+---+ | | | +---+---+ + +-------+ +-------+---+---+ | omeprazole (priLOSEC) DR | Given | 05/01/20 | 20 mg | | | | capsule 20 mg 20 mg, Oral, DAILY | | 14 6:22 | | | | | BEFORE BREAKFAST, First dose on | | AM PST | | | | | Clementine 05/01/14 at 0730, | | | | | | | Post-op/Phase II | | | | | | + +-------+ +-------+---+---+ +---+---+ | | | +---+---+ + +---------+ +---+-------+---+ | sodium chloride 0.9% (NS) | New Bag | 04/30/20 | | 100 | | | infusion at 100 mL/hr, | | 14 9:05 | | mL/hr | | | Intravenous, HOUSEKEEPING COORDINATOR, Starting | | AM PST | | | | | 04/30/14 at 0819, For 1 dose, | | | | | | | Pre-op | | | | | | + +---------+ +---+-------+---+ +---+---+ | | | +---+---+ + +-------+ +--------+---+---+ | tamsulosin (FLOMAX) capsule 0.4 | Given | 05/01/20 | 0.4 mg | | | | mg 0.4 mg, Oral, DAILY AFTER | | 14 8:42 | | | | | BREAKFAST, First dose on Clementine | | AM PST | | | | | 05/01/14 at 0900, Do not open | | | | | | | capsule., | | | | | | + +-------+ +--------+---+---+ +---+---+ | | | +---+---+ + +-------+ +-------+---+---+ | thyroid (ARMOUR) tablet 60 mg | Given | 04/30/20 | 60 mg | | | | 60 mg, Oral, NIGHTLY, First dose | | 14 10:17 | | | | | on 04/30/14 at 2145 | | PM PST | | | | + +-------+ +-------+---+---+ +---+---+ | | | +---+---+ + +-------+ +-------+---+---+ | thyroid (ARMOUR) tablet 75 mg | Given | 05/01/20 | 75 mg | | | | 75 mg, Oral, DAILY, First dose on | | 14 8:43 | | | | | Clementine 05/01/14 at 0900 | | AM PST | | | | + +-------+ +-------+---+---+ +---+---+ | | | +---+---+ + +-------+ +--------+---+---+ | warfarin (COUMADIN) tablet 2.5 | Given | 04/30/20 | 2.5 mg | | | | mg 2.5 mg, Oral, DAILY EVENING, | | 14 10:17 | | | | | First dose on Mon04/30/14 at | | PM PST | | | | | 2100, Drug education required., | | | | | | + +-------+ +--------+---+---+ +---+---+ | | | +---+---+ documented in this encounter
--- OUTSIDE RECORDS SUMMARY | ~2019-10-21 | XMS | Encounter Summary ---
Demographics + + + | Address | [address] | | | [place] [address] | + + + | Home Phone | | + + + | Preferred Language | Unknown | + + + | Marital Status | | + + + | Congregational Affiliation | 1009 | + + + | Race | Unknown | + + + | Ethnic Group | Unknown | + + + Author + + + | Author | [facility] | | | and Jose Enriqueana | + + + | Organization | [facility] | | | [...] [address] | | | [place] | | [address] [place] | | | | | [address] | | + + + + + | Rickey Bui | ECON | [address] [place], [place] | | | | | [address] | | + + + + + Care Team Providers + +------+ + | Care Press Reader Name | Role | Phone | + [...] | +--------+ + + + + | 01/04/ | Telephone | [facility] | Debbie Jung, | Device Check | | 2016 | | [facility] | Medical Record Administrator | (Remote) | | | | [address] | | | | | | [place] [address] [place] | | | | | | [address] | | | | | | [phone] | | | +--------+ + + + [...]
--- OUTSIDE RECORDS SUMMARY | ~2019-10-21 | XMS | Encounter Summary ---
Demographics + + + | Address | [address] | | | [place] [address] | + + + | Home Phone | | + + + | Preferred Language | Unknown | + + + | Marital Status | | + + + | Congregation Affiliation | 1009 | + + + | Race | Unknown | + + + | Ethnic Group | Unknown | + + + Author + + + | Author | [facility] | | | and Jose Enriqueana | + + + | Organization | [facility] [...] [address] | | | [place] | | [address], [place] | | | | | [address] | | + + + + + | Rickey Bui | ECON | [address] [place], [place] | | | | | [address] | | + + + + + Care Team Providers + +------+ + | Care Field Care Manager Name | Role | Phone | + +------+ + | Tayo Robles DO | PCP | | + +------+ + Reason for Visit + + + | Reason | Comments | + + + | Device Check | Billed-due in January, | + + + Encounter Details +--------+ + + + + | Date | Type | Department | Care Team | Description | +--------+ + + + + | 07/22/ | Clinical | [facility] | | Fitting and | | 2013 | Support | [facility] [place] | | adjustment of | | | | [address] | | cardiac pacemaker | | | | [place] [address] [place] [address] | | (Primary Dx); SSS | | | | [address] | | (sick sinus | | | | [phone] | | syndrome) (HCC); | | | | | | Chronotropic | | | | | | incompetence | +--------+ + + + + Social [...] 2020 | Visit | | [address] | | | | | | [place] | | | | | | [address] | | | | | | | | +--------+---------+ + + + documented as of this encounter Procedures + +--------+ + + + | Procedure Name | Priori | Date/Time | Associated Diagnosis | Comments | | | ty | | | | + +--------+ + + + | DEVICE INTERROGATION | Routin | 07/22/2013 | SSS (sick sinus | Results for this | | | e | 5:34 PM | syndrome) (HCC) | procedure are in the | | | | PST | Chronotropic | results section. | | | | | incompetence | | | | | | Fitting and | | | | | | adjustment of | | | | | | cardiac pacemaker | | + +--------+ + + + documented in this encounter Results Device Interrogation (07/22/2013 5:34 PM PST) + + + | Narrative | Performed At | + + + | [facility] | | | ANASTASIYA Dorado 07/22/2013 17:34 PATIENT NAME: Prabhjot Lee | | | [place] : 1945: AGE: 67 y.o. Pacemaker | | | Evaluation Report July 22, 2013 Reason for evaluation: | | | routineIndication for pacemaker: 1. Fitting and adjustment of cardiac | | | pacemaker (V53.31) Device Interrogation 2. SSS (sick sinus syndrome) | | | ([facility]) (427.81) Device Interrogation 3. Chronotropic incompetence | | | (426.89) Device Interrogation Patient was seated and device was | | | interrogated. Pacemaker parameters, battery status, percentages pacing | | | and significant arrhythmias were reviewed. Heart rate [...] | | | the attached Paceart report. Dr. Joel Moise MD has supervised | | | and interpreted this device check. | | | | | |Patient was [...] + + | Beata Dorado RN - 07/22/2013 1:52 PM PST Formatting of this note might be | | different from the original.PATIENT NAME: Prabhjot Bui : 1945: | | AGE: 67 y.o.Pacemaker Evaluation ReportMarch 2013Reason for evaluation: | | routineIndication for pacemaker: 1. Fitting and adjustment of cardiac pacemaker (V53.31) | | Device Interrogation 2. SSS (sick sinus syndrome) (HCC) (427.81) Device Interrogation | | 3. Chronotropic incompetence (426.89) Device Interrogation Patient was seated and | | device was interrogated. Pacemaker parameters, battery status, percentages pacing and | | significant arrhythmias were reviewed. Heart rate histograms were assessed for adequate | | heart rate response and any alerts reviewed. Appropriate lead impedance testing was | | performed. Pacing impedances were reviewed for any significant changes. Sensing tests | | were performed by decreasing LRL. Adequacy of pacing thresholds were tested by | | increasing LRL for each lead and recorded for loss of capture. Final outputs were | | assessed for adequate safety margins.Please see the attached Paceart report.Dr. Maldonado | | Conchis Moise MD has supervised and interpreted this device check. | |3. Chronotropic incompetence (426.89) Device Interrogation | | | | | |Patient was seated and device was interrogated. Pacemaker parameters, battery status, perce ntages pacing and significant arrhythmias were reviewed. Heart rate histograms were assessed for adequate heart rate | |response and any [...] the attached Paceart report. | | | |Dr. Joel Moise MD has supervised and interpreted this device check. | + + documented in this encounter Visit Diagnoses + + | Diagnosis | + + | Fitting and adjustment of cardiac pacemaker - Primary | + + | SSS (sick sinus syndrome) (HCC) Sinoatrial node dysfunction | + + | Chronotropic incompetence Other specified conduction disorder | + + documented in this encounter"
--- OUTSIDE RECORDS SUMMARY | ~2019-10-21 | XMS | Encounter Summary ---
Demographics + + + | Address | [address] | | | [place] [address] | + + + | Home Phone [...] Author | [facility] | | | and Jose Enriqueana | + + + | Organization | [facility] | | | and Jose Enriqueana | + + + | Address | Unknown | + + + | Phone | Unavailable | + + + Support + + + + + | Name | Relationship | Address | Phone | + + + + + | Sharlene Lagunas | ECON | [address] | | | [place] | | [address] [place] | | | | | [address] | | + + + + + | Rickey Bui | ECON | [address] [place], [place] | | | | | [address] | | + + + + + Care Team Providers + +------+ + | Care Hardware Designer Name | Role | Phone | + [...] | +--------+ + + + + | 04/08/ | Telephone | [facility] | Kristen Klein, | Device Check | | 2014 | | [facility] [place] | RN | (Remote) | | | | [address] [facility], | | | | | | [address] [place] | | | | | | [address] | | | | | | [phone] | | | +--------+ + + + [...]
--- OUTSIDE RECORDS SUMMARY | ~2019-10-21 | XMS | Encounter Summary ---
Demographics + + + | Address | [address] | | | [place] [address] | + + + | Home Phone | | + + + | Preferred Language | Unknown | + + + | Marital Status | | + + + | Hoahaoism Affiliation | 1009 | + + + | Race | Unknown | + + + | Ethnic Group | Unknown | + + + Author + + + | Author | [facility] | | | and Jose Enriqueana | + + + | Organization | [facility] | | | and Jose Enriqueana | + + + | Address | Unknown | + + + | Phone | Unavailable | + + + Support + + + + + | Name | Relationship | Address | Phone | + + + + + | Sharlene Lagunas | ECON | [address] | | | [place] | | [address], [place] | | | | | [address] | | + + + + + | Rickey Bui | ECON | [address] [place], [place] | | | | | [address] | | + + + + + Care Team Providers + +------+ + | Care Cloth Shrinker Name | Role | Phone | + [...] | | 2013 | Monitor | [facility] | RN | ([facility]) (Primary Dx); | | | | [address] [facility], | | Cardiac pacemaker in | | | | [address] [place], [place] | | situ | | | | [address] | | | | | | [phone] | | | +--------+ + + + [...] SERVIN | | | | | | [id number] | | | | | | | [...] | | | | PST | fibrillation ([facility]) | results section. | + +--------+ + [...] | | | ICD-9-CM 1. Atrial fibrillation ([facility]) 427.31 Device Interrogation | | | 2. [...] is Atrial | | | Flutter with INDUSTRIAL ACCOUNTANT/VS. Frequent blanked flutter waves are noted | | | (blanked flutter search is On). AP 12.7%. INDUSTRIAL ACCOUNTANT 63.4%. Heart rate | | | histograms [...] | |Presenting rhythm is Atrial Flutter with INDUSTRIAL ACCOUNTANT/VS. Frequent blanked | | |flutter waves are noted (blanked flutter search is On). AP | | |12.7%. INDUSTRIAL ACCOUNTANT 63.4%. Heart rate histograms appear appropriate. | [...] @ 0.4msDataPresenting rhythm is Atrial Flutter with INDUSTRIAL ACCOUNTANT/VS. | | Frequent blanked flutter waves are noted (blanked flutter search is On). AP 12.7%. INDUSTRIAL ACCOUNTANT | | 63.4%. Heart rate histograms appear [...] | |Presenting rhythm is Atrial Flutter with INDUSTRIAL ACCOUNTANT/VS. Frequent blanked flutter waves are noted ( blanked flutter search is On). AP 12.7%. INDUSTRIAL ACCOUNTANT 63.4%. Heart rate histograms appear appropria te. [...]
--- OUTSIDE RECORDS SUMMARY | ~2019-10-21 | XMS | Encounter Summary ---
Demographics + + + | Address | [address] | | | [place] [address] | + + + | Home Phone | | + + + | Preferred Language | Unknown | + + + | Marital Status | | + + + | Mormon Affiliation | 1009 | + + + | Race | Unknown | + + + | Ethnic Group | Unknown | + + + Author + + + | Author | [facility] | | | and Jose Enriqueana | + + + | Organization | [facility] | | | and Jose Enriqueana | + + + | Address | Unknown | + + + | Phone | Unavailable | + + + Support + + + + + | Name | Relationship | Address | Phone | + + + + + | Sharlene Lagunas | ECON | [address] | | | [place] | | [address], [place] | | | | | [address] | | + + + + + | Rickey Bui | ECON | [address] [place], [place] | | | | | [address] | | + + + + + Care Team Providers + +------+ + | Care Cook Fruit Name | Role | Phone | + [...] Description | +--------+--------+ + + + | 06/12/ | Refill | JENNIE SIDDIQUI | Joel Moise | Medication Refill | | 2018 | | [facility] | MD Conchis [address] [place] [address] | | | | | [facility] [address] | [facility] [address] | | | | | [place] [address] [place] [address] | [place] [address] | | | | | [address] | [phone] | | | | | [phone] | | | +--------+--------+ + + + [...] [place] | | | | | | [address] | | | | | | | | +--------+---------+ + + + documented as of this encounter Visit Diagnoses + + | Diagnosis | + + | Atrial fibrillation, unspecified type (HCC) - Primary | + + documented in this encounter"
--- OUTSIDE RECORDS SUMMARY | ~2019-10-21 | XMS | Encounter Summary ---
Demographics + + + | Address | [address] | | | [place] [address] | + + + | Home Phone | | + + + | Preferred Language | Unknown | + + + | Marital Status | | + + + | Orthodox Affiliation | 1009 | + + + | Race | Unknown | + + + | Ethnic Group | Unknown | + + + Author + + + | Author | [facility] | | | and Jose Enriqueana | + + + | Organization | [facility] | | | and Jose Enriqueana | + + + | Address | Unknown | + + + | Phone | Unavailable | + + + Support + + + + + | Name | Relationship | Address | Phone | + + + + + | Sharlene Lagunas | ECON | [address] | | | [address] | | [address], [place] | | | | | [address] | | + + + + + | Rickey Bui | ECON | [address] [place], [place] | | | | | [address] | | + + + + + Care Team Providers + +------+ + | Care Multifocal Button Inspector Name | Role | Phone | + [...] | dysfunction (HCC) | | | | [address] | | | | | | [phone] | | | +--------+ + + + [...] SERVIN | | | | | | [id number] | | | | | | | | +--------+---------+ + + + documented as of this encounter Procedures + +--------+ + + + | Procedure Name | Priori | Date/Time | Associated Diagnosis | Comments | | | ty | | | | + +--------+ + + + | DEVICE | Routin | 11/18/2016 | Sinoatrial node | Results for this | | INTERROGATION- | e | 10:13 PM | dysfunction (HCC) | procedure are in the | | REMOTE | | PDT | Cardiac pacemaker in | results section. | | | | | situ | | + +--------+ + + + documented in this encounter Results Device Interrogation - Remote (11/18/2016 10:13 PM PDT) + + + | Narrative | Performed At | + + + | Luisa Martinez V, | [facility] | | Technologist 11/18/2016 22:13 PATIENT NAME: Prabhjot Lee | | | [place] : 1945: AGE: 70 y.o. 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 | | | PLATING FOREMAN 50.9%. Patient on anticoagulant. Heart rate histograms appear | | | appropriate. Battery status: satisfactory. Voltage: 2.79 V. Estimated | | | remaining longevity: 10 years. Lead impedance appears within normal | | | limits.Events noted: NoneDevice function appears appropriate.Remote | | | follow-up in 3 months. Supervising and interpreting physician for this | | | remote,Joel Moise MD | | |arrhythmias. Heart [...] | | | | |Presenting rhythm is PLATING FOREMAN. PLATING FOREMAN 50.9%. Patient on anticoagulant. | | |Heart rate histograms appear appropriate. | | |Battery status: satisfactory. Voltage: 2.79 V. Estimated | | |remaining longevity: 10 years. Lead impedance appears within | | [...]
--- OUTSIDE RECORDS SUMMARY | ~2019-10-21 | XMS | Encounter Summary ---
Demographics + + + | Address | [address] | | | [place] [address] | + + + | Home Phone | | + + + | Preferred Language | Unknown | + + + | Marital Status | | + + + | Confucianism Affiliation | 1009 | + + + | Race | Unknown | + + + | Ethnic Group | Unknown | + + + Author + + + | Author | [facility] | | | and Jose Enriqueana | + + + | Organization | [facility] | | [...] [address] | | | [address] | | [place], [place] | | | | | [address] | | + + + + + | Rickey Bui | ECON | [address] [place], [place] | | | | | [address] | | + + + + + Care Team Providers + +------+ + | Care Corporate Travel Coordinator Name | Role | Phone | + [...] + + + + | 11/18/ | Orders Only | JENNIE SIDDIQUI | [place] | Cardiac pacemaker in | | 2013 | | [facility] | J, Technologist | situ (Primary Dx); | | | | [address] | | Sinoatrial node | | | | [place] [address] [place] | | dysfunction ([facility]) | | | | [address] | | | | | | [phone] | | | +--------+ + + + [...] 2020 | Visit | | [address] | | | | | | [place] | | | | | | [address] | | | | | | | | +--------+---------+ + + + documented as of this encounter Procedures + +--------+ + + + | Procedure Name | Priori | Date/Time | Associated Diagnosis | Comments | | | ty | | | | + +--------+ + + + | DEVICE INTERROGATION | Routin | 10/14/2013 | Cardiac pacemaker | Results for this | | | e | 2:36 PM | in situ Sinoatrial | procedure are in the | | | | PDT | node dysfunction | results section. | | | | | (HCC) | | + +--------+ + + + documented in this encounter Results Device Interrogation (10/14/2013 2:36 PM PDT) + + + | Narrative | Performed At | + + + | [facility] | | | Angelo [place] 10/14/2013 14:36 PATIENT NAME: Prabhjot Lee | | | [facility] : 1945: AGE: 67 y.o. Remote | | | Pacemaker Evaluation Report October 08, 2013 Reason for evaluation: | | | routineIndication for pacemaker:1. Cardiac pacemaker in situ (V45.01) | | | Device Interrogation (Today) 2. Sinoatrial node dysfunction (HCC) | | | (427.81) Device Interrogation (Today) Remotely captured device | | | data was reviewed for pacemaker parameters, battery status, percentage | | | of pacing and significant arrhythmias. Heart rate histograms were | | | evaluated for adequate heart rate response and any alerts reviewed. | | | Pacing lead impedances were reviewed for any significant changes. | | | Final pacing outputs and programming parameters were reviewed. | | | Settings Mode: AAIR+Atrial Output: 1.5V @ 0.4msVentricular Output: 2V | | | @ 0.4ms Data Presenting rhythm is Atrial Fibrillation with PRODUCTION CLOTH CUTTER. AP | | | 60.8%. PRODUCTION CLOTH CUTTER 35.7%. Heart rate histograms appear appropriate. Battery | | | status: satisfactory. Voltage: 2.8V. Estimated remaining longevity: | | | 11 years. Lead impedances appear within normal limits.Events noted: | | | 32,502 MS for 56% of time. 7,938 AHR's, longest for 72:59:09 hours. | | | On anticoagulation.Device function appears appropriate.Remote | | | follow-up in [address] Joel Moise MD has supervised and | | | interpreted this remote. | | |impedances were reviewed for any significant changes. Final | | |pacing outputs and programming parameters were reviewed. | | | | | |Settings | | | | | |Mode: AAIR+ | | |Atrial Output: 1.5V @ 0.4ms | | |Ventricular Output: 2V @ 0.4ms | | | | | |Data | | | | | |Presenting rhythm is Atrial Fibrillation with PRODUCTION CLOTH CUTTER. AP 60.8%. PRODUCTION CLOTH CUTTER | | |35.7%. Heart rate histograms appear appropriate. Battery status: | | |satisfactory. Voltage: 2.8V. Estimated remaining longevity: 11 | | |years. Lead impedances appear within normal limits. | | |Events noted: 32,502 MS for 56% of time. 7,938 AHR's, longest | | |for 72:59:09 hours. On anticoagulation. | | |Device function appears appropriate. | | |Remote follow-up in 3 months. | | |Dr. Joel Moise MD has supervised and interpreted this | | |remote. | | | | | + + + + + | Procedure Note | + + | [place], Technologist - 10/08/2013 1:05 PM PDT Formatting of this note | | might be different from the original.PATIENT NAME: Prabhjot Bui : | | 1945: AGE: 67 y.o.Remote Pacemaker Evaluation ReportMay 2013Reason for | | evaluation: routineIndication for pacemaker:1. Cardiac pacemaker in situ (V45.01) | | Device Interrogation (Today) 2. Sinoatrial node dysfunction (HCC) (427.81) Device | | Interrogation (Today) Remotely captured device data was reviewed for pacemaker | | parameters, battery status, percentage of pacing and significant arrhythmias. Heart rate | | histograms were evaluated for adequate heart rate response and any alerts reviewed. | | Pacing lead impedances were reviewed for any significant changes. Final pacing outputs | | and programming parameters were reviewed.SettingsMode: AAIR+Atrial Output: 1.5V @ | | 0.4msVentricular Output: 2V @ 0.4msDataPresenting rhythm is Atrial Fibrillation with PRODUCTION CLOTH CUTTER. | | AP 60.8%. PRODUCTION CLOTH CUTTER 35.7%. Heart rate histograms appear appropriate. Battery status: | | satisfactory. Voltage: 2.8V. Estimated remaining longevity: 11 years. Lead impedances | | appear within normal limits.Events noted: 32,502 MS for 56% of time. 7,938 AHR's, | | longest for 72:59:09 hours. On anticoagulation.Device function appears | | appropriate.Remote follow-up in [address] Joel Moise MD has supervised and | | interpreted this remote. | | | |Settings | | | |Mode: AAIR+ | |Atrial Output: 1.5V @ 0.4ms | |Ventricular Output: 2V @ 0.4ms | | | |Data | | | |Presenting rhythm is Atrial Fibrillation with PRODUCTION CLOTH CUTTER. AP 60.8%. PRODUCTION CLOTH CUTTER 35.7%. Heart rate histogr ams appear appropriate. Battery status: satisfactory. Voltage: 2.8V. Estimated remaining vinicius gevity: 11 years. Lead impedances appear within normal limits. | |Events noted: 32,502 MS for 56% of time. 7,938 AHR's, longest for 72:59:09 hours. On anti coagulation. | |Device function appears appropriate. | |Remote [...]
--- OUTSIDE RECORDS SUMMARY | ~2019-10-21 | XMS | Encounter Summary ---
Demographics + + + | Address | [address] | | | [place] [address] | + + + | Home Phone | | + + + | Preferred Language | Unknown | + + + | Marital Status | | + + + | Sabianist Affiliation | 1009 | + + + | Race | Unknown | + + + | Ethnic Group | Unknown | + + + Author + + + | Author | [facility] | | | and Jose Enriqueana | + + + | Organization | [facility] | | | [...] [address] | | | [address] | | [address], [place] | | | | | [address] | | + + + + + | Rickey Bui | ECON | [address] [place], [place] | | | | | [address] | | + + + + + Care Team Providers + +------+ + | Care Shopper'S Aide Name | Role | Phone | + +------+ + | Tayo Robles DO | PCP | | + +------+ + Reason for Visit +--------+ + | Reason | Comments | +--------+ + | Apnea | | +--------+ + Encounter Details +--------+---------+ + + + | Date | Type | Department | Care Team | Description | +--------+---------+ + + + | 12/25/ | Office | [facility] | Rickey Zaragoza PA | ABAD on CPAP (Primary | | 2013 | Visit | SLEEP DISORDER [address] | [address] | Dx); Poor sleep | | | | [address] | [place] | hygiene | | | | [place] [address] | [id number] | | | | | [phone] | | | +--------+---------+ + + + [...] + + + | Blood Pressure | 108/74 | 12/25/2013 11:12 AM | | | | | PDT | | + + + + + | Pulse | 86 | 12/25/2013 11:12 AM | | | | | PDT | | + + + + + | Temperature | - | - | | + + + + + | Respiratory Rate | 16 | 12/25/2013 11:12 AM | | | | | PDT | | + + + + + | Oxygen Saturation | 98% | 12/25/2013 11:12 AM | | | | | PDT | | + + + + + | Inhaled Oxygen | - | - | | | Concentration | | | | + + + + + | Weight | 110.2 kg (242 lb | 12/25/2013 11:12 AM | | | | 14.4 oz) | PDT | | + + + + + | Height | - | - | | + + + + + | Body Mass Index | 28.8 | 11/13/2013 1:43 PM | | | | | PDT | | + + + + + documented in this encounter Patient Instructions Patient Instructions Rickey Zaragoza PA - 12/25/2013 11:43 AM PDT1) Awaken at nearly the jean carlos e time ever day at 6:30am. 2) Obtain as much bright light as possible during your desired waking hours. Use your light box every morning at work in your cubicle and for 45 minutes after awakening on weekends. 3) No more than 2 small cups of coffee in the morning and NO OTHER SOURCES OF CAFFEINE. 4) Eliminate or minimize smoking and alcohol consumption, especially near bedtime. 5) Do not nap during the daytime; this will interfere with your night-time sleep. 6) Darken your environment an hour or two before bedtime. 7) Consider "unwinding" and "closing" your day about an hour before your anticipated bedtim e. 8) Go to bed only when you are sleepy and no earlier than 7-9 hours before your anticipated wake time. 9) Use your bedroom only for sleeping. 10) Only sleep in your bedroom - do not sleep in other areas of your house. 11) Between bedtime and wake time the only things you are allowed to do is to sleep in your bedroom or to sit comfortably in another room, in the dark, doing nothing. Do not watch TV, work on the computer, send text messages, do housework, or problem solve between bedtime an d wake time. 12) If you find that you aren't asleep, get up out of bed (keep your environment dark with just low level light, so that you won't fall) and go to another room. Sit quietly in the pascale k until you are sleepy and then go back to bed. You may repeat this as many times as necessa ry. But you must awaken at the same time every day, regardless of how you slept that night. 13) If you continue to sleep poorly, consider going to bed a little later each night (but a waken at the same time every morning and don't nap) until you are sleeping through the major ity of the time between bed time and wake time. 14) Wear CPAP 100% of the time asleep or attempting to sleep. documented in this encounter Progress Notes Rickey Zaragoza PA - 12/25/2013 11:27 AM PDT Subjective: Patient ID: Prabhjot Bui is a 68 y.o. male. HPI last office visit was: 12/27/2012 date of polysomnography: 03/01/2004 AHI: 14.0 (35.3 during REM) O2%: 90% Machine type: ResMed S9 with full face mask obtained from: [facility] in [place] pressure is: 6-16 cm 95%: 11.8 cm maxium: 13.1 cm CPAP download shows CPAP useage # nights: 361/365 % of nights >4 hours: 86% Average usage (all nights): 5:24 average usage (nights used): 5:28 AHI: 2.4 Prabhjot continues to do well with his CPAP compliance. He has improved his compliance during the last year, but he (and his ) feel that he is not getting enough sleep. He is averag ing 5.5 hours of sleep each night and frequently naps during the day. She does not like him napping during the day. He likes his naps, but would like to get more of his sleep at [facility]. While on a trip to [place], he did not nap and was sleeping nearly seven hours each night . He was not tired during the day. As soon as they returned home, he went back to his norm al routine of napping during the day and not sleeping as well at night. The principles of [facility] hygiene were reviewed him. I explained that he is to be more active when at home, quincy cially when he is starting to feel more tired. Avoiding naps should help him sleep longer a t night. He also continues to have problems with congestion. He has done a much better job of weari ng his CPAP for the duration of the night. The times he takes off his mask early in the [facility] has been because he cannot breathe through his nose. We discussed having him see an ENT specialist at his last appointment, but he has not done this. I have discussed the download in detail. This shows that his sleep apnea is well controlle d, with an AHI of 2.4. It also shows that his leaks are well controlled. Review of Systems Objective: Physical Exam Assessment: Problem # 1: OBSTRUCTIVE SLEEP APNEA (ICD-327.23) This is well controlled with CPAP. His CPAP compliance is going well, but the times he is not using his CPAP is because of his congestion. Problem #2: POOR SLEEP HYGIENE (307.49) He is napping daily and often wakes during the night to read. Plan: 1. He is to continue with CPAP indefinitely. I have recommended touching base with his [employer] twice per year to ensure that all medical supplies are satisfacto ry. I have again recommended that he see an ENT specialist for evaluation of his nasal pass age. 2. He is to do the followin) Awaken at nearly the same time ever day at 6:30am. 2) Obtain as much bright light as possible during your desired waking hours. 3) No more than 2 small cups of coffee in the morning and NO OTHER SOURCES OF CAFFEINE. 4) Eliminate or minimize smoking and alcohol consumption, especially near bedtime. 5) Do not nap during the daytime; this will interfere with your night-time sleep. 6) Darken your environment an hour or two before bedtime. 7) Consider "unwinding" and "closing" your day about an hour before your anticipated bedtim e. 8) Go to bed only when you are sleepy and no earlier than 7-9 hours before your anticipated wake time. 9) Use your bedroom only for sleeping. 10) Only sleep in your bedroom - do not sleep in other areas of your house. 11) Between bedtime and wake time the only things you are allowed to do is to sleep in your bedroom or to sit comfortably in another room, in the dark, doing nothing. Do not watch TV, work on the computer, send text messages, do housework, or problem solve between bedtime an d wake time. 12) If you find that you aren't asleep, get up out of bed (keep your environment dark with just low level light, so that you won't fall) and go to another room. Sit quietly in the pascale k until you are sleepy and then go back to bed. You may repeat this as many times as necessa ry. But you must awaken at the same time every day, regardless of how you slept that night. 13) If you continue to sleep poorly, consider going to bed a little later each night (but a waken at the same time every morning and don't nap) until you are sleeping through the major ity of the time between bed time and wake time. 14) Wear CPAP 100% of the time asleep or attempting to sleep. I will follow up again in 4 months, sooner prn. 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
--- OUTSIDE RECORDS SUMMARY | ~2019-10-21 | XMS | Encounter Summary ---
Demographics + + + | Address | [address] | | | [place] [address] | + + + | Home Phone [...] Author | [facility] | | | and Jose Enriqueana | + + + | Organization | [facility] | | | and Jose Enriqueana | + + + | Address | Unknown | + + + | Phone | Unavailable | + + + Support + + + + + | Name | Relationship | Address | Phone | + + + + + | Sharlene Lagunas | ECON | [address] | | | [place] | | [address], [place] | | | | | [address] | | + + + + + | Rickey Bui | ECON | [address] [place], [place] | | | | | [address] | | + + + + + Care Team Providers + +------+ + | Care Chief Nurse Name | Role | Phone | + [...] Description | +--------+--------+ + + + | 10/18/ | Refill | JENNIE SIDDIQUI | Joel Moise | Medication Refill | | 2019 | | CARDIOLOGY [place] | MD Conchis [address] [place] [address] | | | | | [address] | [facility] [address] | | | | | [address] | [place] [address] | | | | | [place] | [phone] | | | | | [address] | | | | | | [phone] | | | +--------+--------+ + + + [...] SERVIN | | | | | | [id number] | | | | | | | | +--------+---------+ + + + documented as of this encounter Visit Diagnoses + + | Diagnosis | + + | Atrial fibrillation, unspecified type (HCC) | + + documented in this encounter"
--- OUTSIDE RECORDS SUMMARY | ~2019-10-21 | XMS | Encounter Summary ---
Demographics + + + | Address | [address] | | | [place] [address] | + + + | Home Phone [...] | Author | [facility] | | | and Jose Enriqueana | + + + | Organization | [facility] | | | and Jose Enriqueana | + + + | Address | Unknown | + + + | Phone | Unavailable | + + + Support + + + + + | Name | Relationship | Address | Phone | + + + + + | Sharlene Lagunas | ECON | [address] | | | [address] | | [address], [place] | | | | | [address] | | + + + + + | Rickey Bui | ECON | [address] [place], [place] | | | | | [address] | | + + + + + Care Team Providers + +------+ + | Care Histotechnologist Name | Role | Phone | + +------+ + PCP | Unavailable | + +------+ + Encounter Details +--------+ + + + + | Date | Type | Department | Care Team | Description | +--------+ + + + + | 09/01/ | Hospital [facility] | NO, OUTOFAREAPCP | | | 2008 - | Encounter | [facility] | | | | | | GENERIC OP CONV DEPT | | | | 10/30/ | | [address] | | | | 2008 | | [place], [place] | | | | | | [address] | | | | | | [phone] | | | +--------+ + + + [...] SERVIN | | | | | | [id number] | | | | | | | | +--------+---------+ + + + documented as of this encounter Visit Diagnoses Not on filedocumented in this encounter"
--- OUTSIDE RECORDS SUMMARY | ~2019-10-21 | XMS | Encounter Summary ---
Demographics + + + | Address | [address] | | | [place] [address] | + + + | Home Phone | | + + + | Preferred Language | Unknown | + + + | Marital Status | | + + + | Gnosticist Affiliation | 1009 | + + + | Race | Unknown | + + + | Ethnic Group | Unknown | + + + Author + + + | Author | [facility] | | | and Jose Enriqueana | + + + | Organization | [facility] | | | and Jose Enriqueana | + + + | Address | Unknown | + + + | Phone | Unavailable | + + + Support + + + + + | Name | Relationship | Address | Phone | + + + + + | Sharlene Lagunas | ECON | [address] | | | [address] | | [address], [place] | | | | | [address] | | + + + + + | Rickey Bui | ECON | [address] [place], [place] | | | | | [address] | | + + + + + Care Team Providers + +------+ + | Care Senior Data Scientist Name | Role | Phone | + +------+ + | Luna Larson | PCP | | | PA | | | + +------+ + Reason for Visit + + + | Reason | Comments | + + + | Follow-up | 6-Month follow up AFib | + + + | Atrial Fibrillation | | + + + Encounter Details +--------+ + + + + | Date | Type | Department | Care Team | Description | +--------+ + + + + | 08/18/ | Virtual | [facility] | Augusto Kunz | Sinoatrial node | | 2020 | Office | [facility] | MD [address] | dysfunction ([facility]) DO | | | Visit | [facility] [address] | [address] | NOT DELETE. | | | | [address] [place] | [place] [address] | (Primary Dx); | | | | [address] | [phone] | Hypertension; Atrial | | | | [phone] | | fibrillation, | | | | | | unspecified type | | | | | | ([facility]); S/P AVR; | | | | | | Pacemaker - | | | | | | Medtronic - [id number] | | | | | | Adapta - SN: | | | | | | [id number] Implanted | | | | | | 02/27/2012 | +--------+ + + + + Social [...] this encounter Patient Instructions Patient Instructions Augusto Kunz MD - 08/19/2019 1:00 PM PDTContinue present meds and see TAX EXAMINING TECHNICIAN/PA in 6 months and in one year See Dr. Dotson with echocardiogram in f/u of aortic valve. documented in this encounter Progress Notes Tianna Quintanilla, Media Relations Manager - 08/19/2019 1:00 PM PDTReview of Systems HENT: Positive for hearing loss. Eyes: Positive for blurred vision and pain. Cardiovascular: Positive for palpitations and leg swelling. Genitourinary: Positive for urgency. All other systems reviewed and are negative. Patient reports more balance issues as of late. I spoke to Prabhjot Bui on the phone and the following information has been reviewed and updated in the chart: Medications and Allergies have been reviewed and updated Patient has had recent Cardiac testing/procedures/visits: ECHO 10/02/18 & EKG 08/15/18 Records are In [facility] Patient's most recent Lipid Panel and BMP: 11/24/17 Lab report is In [facility] Recent Cardiac ED or Hospital Visits? None Reviewed and agree. Augusto Kunz MD P Augusto Carter MD - 08/19/2019 1:00 PM PDTFormatting of this note might be differen t from the original. [facility] Cardiology -please note that the patient has not responded to phone contact as hardik davenport Prep time has been from 12:54-1:03 PM. Patient Name: Prabhjot Bui : 1945 AGE: 73 y.o. Date of service: 08/19/2019 Established patient visit Telephone Service Patient Location: Patient home Provider Location: [facility] Patient was originally scheduled for an in-office visit but due to the COVID-19 outbreak we are completing this visit via telephone. Do you understand that we are going to complete your previously scheduled visit today via t elephone? Yes states pt Be advised that due to the nature of telephone service there may be call disruptions or inf ormation security issues. Do you consent to going forward with this service today? Yes states pt Patient was provided with all of the above information and has agreed to go forward with ou r visit. Augusto Kunz MD 08/19/2019 1:41 PM Chief Complaint: F/u of pacemaker and atrial fibrillation Outline of Cardiac Problems that were considered on 08/19/2019 to make treatment decisions 1. Sinoatrial node [...] enlargement, mild MR, moderate TR 29-34 mmHg 3. Echocardiogram 09/11/17 ([place])- mild biatrial dilatation, EF 65-70%, mild alcon l regurgitation, normal functioning bioprosthetic aortic valve, mild to moderate tricuspid r egurgitation, PAP 35-40 mmHg 4. Hypertension History of Present Illness: Patient was last seen by me August 15, 2018. At that time he in dicated that his energy continued to decline and he forced himself to be active. He did not take his Lasix regularly. He otherwise had no other cardiac complaints. Pacemaker data is reviewed with the patient ventricularly paced 72.8% on recent transmission. Battery life i s 6 years there are 6 ventricular high rate episodes 3 that were new. At times we have know n the patient to have rapid A. fib. Presently,pateint is doing more outside stuff ie. Chopped up stump etc. He denies chest pa in and feels pretty well. Notice really high heart rate for not very long. Gets tired and a ctive for 3 hours and then rest x 1 hour for last several years. No shortness of breath. Occ asional use of stockings and ankle edema. Blood work from his pcp with bs > 110 with pre pritesh betes and watch what he eats. He has gained some weight. Ex tolerance - hard to say as not w alk much. If take trash down [address] with 25 [address] descent, he gets quite winded. Meds reviewed and all are good. Pt expressed desire to stay in touch and agreed to send e m ail. Assessment: 1. Sinoatrial node dysfunction (HCC) DO NOT DELETE. -V paced 72.8% and therefore persists. 2. Hypertension - controlled 3. Atrial fibrillation, unspecified type (HCC) -rate controlled and anticoagulated with war farin. 4. S/P AVR - difficult to assess without auscultation. However, no issues on Echocardiogram in September 2018. 5. Pacemaker - Medtronic - ADDRL1 Adapta - SN: [id number] Implanted 02/27/2012 -pacemaker fu nction is appropriate and 6 years of battery life remain. Heart rate histogram looks reason able although 11% of heart rate is 90-100. In the post COVID-19 9. We may have the patient travel to [place] for adjustments in rate response to have a smoother rate profile. PLAN: Continue present meds and see TAX EXAMINING TECHNICIAN/PA in 6 months PAST MEDICAL HISTORY Past Medical History: Diagnosis Date Aortic insufficiency and aortic stenosis Aortic root dilation (HCC) Dilated aortic root - stable on echocardiogram 06/24/05 - 4.5 cm. - 4.8 cm previously: Aorti c root 4.5 x 4.7 cm echocardiogram 10/17/06. Asthma RARELY USES ALBUTEROL INHALER Atrial fibrillation (HCC) DR AUGUSTO KUNZ Basal cell carcinoma BPH (benign prostatic hyperplasia) Colon polyp 1989 Colon polyps Diverticular disease Diverticulosis of colon Dyspnea on exertion Elevated bilirubin GERD (gastroesophageal reflux disease) Gout History of biopsy Lump on breast was biopsied in 04/2009 and was benign. History of echocardiogram Bicuspid aortic valve - peak gradient 11, mean gradient 6 - echocardiogram 10/17/06. Hypertension Labile hypertension. Blood pressure 194/120 approximately 06/10/05. Hypertrophy of breast Leg swelling Intermittent right leg swelling . wears support hose Localized soft tissue swelling Lymphedema Pacemaker MEDTRONIC Paroxysmal atrial fibrillation (HCC) Last cardioversion 12/26/02. Pulmonary vein isolation carried out at the [facility] on 09/01/01. Phlebitis Phlebitis - right leg with superficial enlargement of superficial veins over the right thi gh, improved at office visit 01/17/06. Seborrheic dermatitis Sleep apnea CPAP- WILL BRING SOB (shortness of breath) D/T A FIB W/ACTIVITY Thyroid disease HYPOTHYROID TIA (transient ischemic attack) LAST 2009 OR 2010 HAS HAD "A FEW TIA"- Varicose veins Venous insufficiency PAST SURGICAL HISTORY (INCLUDING PROCEDURES) Past Surgical History: Procedure Laterality Date ABLATION OF DYSRHYTHMIC FOCUS 04/30/2014 A-FIB ABLATION W/IVETTE AND SHAYNA W/DR SARAVIA; Laterality: N/A; Surgeon: Rickey Galvan MD ; Location: [facility] ELECTROPHYSIOLOGY AORTIC ROOT ANEURYSM RESECTION AORTIC ROOT REPLACEMENT AND REIMPLANTATION OF CORONARY ARTERIES 05/28/08 Dr. Kelsey ASCENDING AORTA REPLACEMENT 05/28/08 Dr. Kelsey ATRIAL ABLATION SURGERY 2002 ,2008 CARDIAC PACEMAKER PLACEMENT 02/27/12 MEDTRONIC CARDIOVERSION 06/19/00,11/24/00,07/25/01,10/18/01,12/26/02,12/02/04 CARDIOVERSION 03/07/13 CHOLECYSTECTOMY 2004 COLONOSCOPY 09/02/2015 HIP JOINT REPLACEMENT Left 05/17/15 INGUINAL HERNIA REPAIR 1990 and 1993 X2 SHOULDER SURGERY 05/28/13 right TOOTH EXTRACTION VASECTOMY WRIST SURGERY left FAMILY HISTORY Family History Problem Relation Age of Onset Hypertension Sister Stroke Sister 62 Hypertension Mother Atrial fibrillation Mother Also had a bad valve Breast cancer Mother Colon cancer Brother , colon cancer Hypertension Father Diabetes Father Dementia Father Stroke Father Diabetes Maternal Grandmother SOCIAL HISTORY Social History Socioeconomic History Marital status: Spouse name: Ryann Number of children: 3 Years of education: Not on file Highest education level: Not on file Occupational History Comment: retired Social Needs Financial resource strain: Not on file Food insecurity: Worry: Not on file Inability: Not on file Transportation needs: Medical: Not on file Non-medical: Not on file Tobacco Use Smoking status: Never Smoker Smokeless tobacco: Never Used Tobacco comment: denies tobacco use Substance and Sexual Activity Alcohol use: No Alcohol/week: 0.0 standard drinks Comment: denies alcohol use Drug use: No Comment: denies illicit drug use Sexual activity: Not on file Lifestyle Physical activity: Days per week: 4 days Minutes per session: 90 min Stress: Not on file Relationships Social connections: Talks on phone: Not on file Gets together: Not on file Attends gnosticist service: Not on file Active member of club or organization: Not on file Attends meetings of clubs or organizations: Not on file Relationship status: Not on file Intimate partner violence: Fear of current or ex partner: Not on file Emotionally abused: Not on file Physically abused: Not on file Forced sexual activity: Not on file Other Topics Concern Not on file Social History Narrative He is to Ryann with three children. He is retired from the [employer]. He does not smoke or use smokeless tobacco and does not drink alcohol. Denies illici t drug use. He drinks decaffeinated coffee and occasional hot chocolate or regular coffee. 16oz daily No regular exercise at this time but works outside a lot FAMILY HISTORY: Negative for premature atherosclerotic heart disease. His sister had a small stroke at [facility] age 62. She also had hypertension. His mother had a bad valve, hypertension, and atrial f ibrillation. His brother from colon cancer. TOBACCO HISTORY Social History Tobacco Use Smoking Status Never Smoker Smokeless Tobacco Never Used Tobacco Comment denies tobacco use ALLERGIES Allergies Allergen Reactions Flecainide Other (See Comments) AFTER 1ST ABLATION, HAD LEG SWELLING, INCREASED HEART RATE Amoxicillin Rash Review of Systems: Review of Systems HENT: Positive for hearing loss. Eyes: Positive for blurred vision and pain. Cardiovascular: Positive for palpitations and leg swelling. Genitourinary: Positive for urgency. All other systems reviewed and are negative. Patient reports more balance issues as of late. I spoke to Prabhjot Bui on the phone and the following information has been reviewed and updated in the chart: Review of diagnostic studies: Settings Medtronic Adapta Pacemaker Mode: VVIR, 70 (130) Ventricular Output: 2.0V @ 0.4ms (adaptive) Data Presenting rhythm is atrial flutter with CASH MANAGEMENT CLERK/VS, ~78 bpm. CASH MANAGEMENT CLERK 72.8%. Heart rate histogram a ppears appropriate with a small increase in sensor driven rates 90-100 bpm. Battery status: satisfactory. Voltage: 2.77 V. Estimated remaining longevity: 6 years. Emilee d impedance appears within normal limits. Events noted since 08/15/18: 6 HVR episodes, (3 new) 4 seconds to (2:07 minutes on 07/13/19), most recent on 07/13/19 for 7 seconds, V rates 180-202 bpm. Markers with brief EGM's show regular and irreg ular fast VS, most suggestive of RVR and some with possible brief NSVT episodes. On anticoa gulation. Patient with a history of previously seen brief NSVT. Device function appears appropriate. Remote follow-up per schedule, due next 10/02/19. Supervising and interpreting physician for this remote, Augusto Kunz MD Your echocardiogram has resulted. Please be reassured to know that your heart function remains stable. Your heart's pumping strength is within normal range with an ejection fraction of 65%. Your valve is functioning appropriately. Your pulmonary artery pressures remain stable compared to your prior echocardiogram. Overall findings are stable - No medication changes necessary at this time. Total time spent in review of patient's records and in discussion with the patient via tele phone: Prep time of chart 8 minutes. Total time of call equal 14 minutes from 1: 40-1: 5 4. Therefore, total time equal 22 minutes. Signed by: Augusto Kunz MD 08/19/20191:41 PM documented in this encounter Plan of Treatment [...] SERVIN | | | | | | [id number] | | | | | | | | +--------+---------+ + + + documented as of this encounter Visit Diagnoses + + | Diagnosis | + + | Sinoatrial node dysfunction (HCC) DO NOT DELETE. - Primary Sinoatrial node | | dysfunction | + + | Hypertension Unspecified essential hypertension | + + | Atrial fibrillation, unspecified type (HCC) | + + | S/P AVR Heart valve replaced by other means | + + | Pacemaker - Medtronic - [id number] Enrique - : [id number] Implanted 02/27/2012 Cardiac | | pacemaker in situ | + + documented in this encounter
--- OUTSIDE RECORDS SUMMARY | ~2019-10-21 | XMS | Encounter Summary ---
Demographics + + + | Address | [address] | | | [place] [address] | + + + | Home Phone | | + + + | Preferred Language | Unknown | + + + | Marital Status | | + + + | Synagogue Affiliation | 1009 | + + + | Race | Unknown | + + + | Ethnic Group | Unknown | + + + Author + + + | Author | [facility] | | | and Jose Enriqueana | + + + | Organization | [facility] [...] [address] | | | [address] | | [place], [place] | | | | | [address] | | + + + + + | Rickey Bui | ECON | [address] [place], [place] | | | | | [address] | | + + + + + Care Team Providers + +------+ + | Care Insurance Loss Control Surveyor Name | Role | Phone | [...] Description | +--------+--------+ + + + | 10/25/ | Refill | [facility] | Joel Moise | Medication Refill | | 2013 | | [facility]Y [facility] | MD [address] [place] [address] | | | | | [facility] [address] | [facility] [address] | | | | | [place] [address] [place] | [place] [address] | | | | | [address] | [phone] | | | | | [phone] | | | +--------+--------+ + + + [...] 2019 | Visit | | [address] | | | | | | [place] | | | | | | [address] | | | | | | | | +--------+---------+ + + + documented as of this encounter Visit Diagnoses + + | Diagnosis | + + | Hypertension - Primary Unspecified essential hypertension | + + documented in this encounter"
--- OUTSIDE RECORDS SUMMARY | ~2019-10-21 | XMS | Encounter Summary ---
Demographics + + + | Address | [address] | | | [place] [address] | + + + | Home Phone | | + + + | Preferred Language | Unknown | + + + | Marital Status | | + + + | Hinduism Affiliation | 1009 | + + + | Race | Unknown | + + + | Ethnic Group | Unknown | + + + Author + + + | Author | [facility] | | | and Jose Enriqueana | + + + | Organization | [facility] | | | and Jose Enriqueana | + + + | Address | Unknown | + + + | Phone | Unavailable | + + + Support + + + + + | Name | Relationship | Address | Phone | + + + + + | Sharlene Lagunas | ECON | [address] | | | [address] | | [place], [place] | | | | | [address] | | + + + + + | Rickey Bui | ECON | [address] [place], [place] | | | | | [address] | | + + + + + Care Team Providers + +------+ + | Care Lasting Room Supervisor Name | Role | Phone | + +------+ + | Tayo Robles DO | PCP | | + +------+ + Reason for Visit + + + | Reason | Comments | + + + | Device Check | billed | | (Remote) | | + + + Encounter Details +--------+ + + + + | Date | Type | Department | Care Team | Description | +--------+ + + + + | 05/20/ | Implant | [facility] | Lidia Christianson, | Sinoatrial node | | 2017 | Monitor | [facility] | RN | dysfunction (HCC) | | | | [address], | | (Primary Dx); | | | | [address] [place] | | Cardiac pacemaker in | | | | [address] | | situ | | | | [phone] | | | +--------+ + + + [...] SERVIN | | | | | | [address] | | | | | | | | +--------+---------+ + + + documented as of this encounter Procedures + +--------+ + + + | Procedure Name | Priori | Date/Time | Associated Diagnosis | Comments | | | ty | | | | + +--------+ + + + | DEVICE | Routin | 05/20/2017 | Sinoatrial node | Results for this | | INTERROGATION- | e | 11:59 PM | dysfunction (HCC) | procedure are in the | | REMOTE | | PST | Cardiac pacemaker in | results section. | | | | | situ | | + +--------+ + + + documented in this encounter Results Device Interrogation - Remote (05/20/2017 11:59 PM PST) + + + | Narrative | Performed At | + + + | Lidia Smith | [facility] | | ANASTASIYA Christianson 05/21/2017 13:20 PATIENT NAME: Prabhjot Lee | | | [place] : 1945: AGE: 71 y.o. Remote | | | Pacemaker Evaluation Report April 07, 2017 Reason for evaluation: | | | routineIndication for pacemaker: ICD-10-CM ICD-9-CM 1. Sinoatrial | [...] | | | were reviewed. Settings Mode: VVIR 70-130Ventricular Output: 2V @ | | | 0.4ms Data Presenting rhythm is Aflutter/LEAD DATABASE DEVELOPER. LEAD DATABASE DEVELOPER 52.5%. Patient is | | | on anticoagulant. Heart rate histograms appear appropriate. Battery | | | status: satisfactory. Voltage: 2.79 V. Estimated remaining longevity: | | | 9.5 years. Lead impedance appears within normal limits.Events noted | | | since 09/05/16: 6 VHR episodes, longest 2:18 minutes on 03/10/17, most | | | recent 03/12/17. Avg Vent rates 180 bpm. Egms are Aegm and appears to | | | be Aflutter with RVR.Device function appears appropriate.Remote | | | follow-up in 3 months. Supervising and interpreting physician for this | | | remote,Joel Moise MD | | |impedances were reviewed for any significant changes. Final | | |pacing outputs and programming parameters were reviewed. | | | | | |Settings | | | | | |Mode: VVIR 70-130 | | |Ventricular Output: 2V @ 0.4ms | | | | | |Data | | | | | |Presenting rhythm is Aflutter/LEAD DATABASE DEVELOPER. LEAD DATABASE DEVELOPER 52.5%. Patient is on | | |anticoagulant. Heart rate histograms appear appropriate. | | |Battery status: satisfactory. Voltage: 2.79 V. Estimated | | |remaining longevity: 9.5 years. Lead impedance appears within | | |normal limits. | | |Events noted since 09/05/16: | | | 6 VHR episodes, longest 2:18 minutes on 03/10/17, most recent | | |03/12/17. Avg Vent rates 180 bpm. Egms are Aegm and appears to be | | |Aflutter with RVR. | | |Device function appears appropriate. [...]
--- OUTSIDE RECORDS SUMMARY | ~2019-10-21 | XMS | Encounter Summary ---
Demographics + + + | Address | [address] | | | [place] [address] | + + + | Home Phone [...] | Author | [facility] | | | and Jose Enriqueana | + + + | Organization | [facility] [...] [address] | | | [address] | | [address], [place] | | | | | [address] | | + + + + + | Rickey Bui | ECON | [address] [place], [place] | | | | | [address] | | + + + + + Care Team Providers + +------+ + | Care Psychodramatist Name | Role | Phone | + +------+ + | Tayo Robles DO | PCP | | + +------+ + Reason for Visit + + + | Reason | Comments | + + + | Device Check | Medtronic pacemaker, billed | | (In-office) | | + + + Encounter Details +--------+ + + + + | Date | Type | Department | Care Team | Description | +--------+ + + + + | 06/30/ | Procedure | [facility] | | Fitting and | | 2014 | visit | [facility] [place] | | adjustment of | | | | [place] | | cardiac pacemaker | | | | [address] [place], [place] | | (Primary Dx); | | | | [address] | | Sinoatrial node | | | | [phone] | | dysfunction ([facility]); | | | | | | Cardiac pacemaker in | | | | | | situ | +--------+ + + + + Social [...] SERVIN | | | | | | [address] | | | | | | | | +--------+---------+ + + + documented as of this encounter Procedures + +--------+ + + + | Procedure Name | Priori | Date/Time | Associated Diagnosis | Comments | | | ty | | | | + +--------+ + + + | DEVICE INTERROGATION | Routin | 07/01/2014 | Fitting and | Results for this | | | e | 10:45 AM | adjustment of | procedure are in the | | | | PST | cardiac pacemaker | results section. | | | | | Sinoatrial node | | | | | | dysfunction (HCC) | | | | | | Cardiac pacemaker in | | | | | | situ | | + +--------+ + + + documented in this encounter Results Device Interrogation (07/01/2014 10:45 AM PST) + + + | Narrative | Performed At | + + + | Ladan Hua | | | Lit 07/01/2014 10:45 PATIENT NAME: Prabhjot Bui | | | : 1945: AGE: 68 y.o. Pacemaker Evaluation Report | | | July 01, 2014 Reason for evaluation: routineIndication for | | | pacemaker: ICD-9-CM 1. Fitting and adjustment of cardiac | | | pacemaker V53.31 Device Interrogation 2. Sinoatrial node dysfunction | | | ([facility]) 427.81 Device Interrogation 3. Cardiac pacemaker in situ V45.01 | | | Device Interrogation Patient was [...] | | the attached Paceart report. Dr. Rickey Galvan MD has supervised | | | and [...] report. | | | | | |Dr. Rickey Galvan MD has supervised and interpreted this | [...]
--- OUTSIDE RECORDS SUMMARY | ~2019-10-21 | XMS | Encounter Summary ---
Demographics + + + | Address | [address] | | | [place] [address] | + + + | Home Phone | | + + + | Preferred Language | Unknown | + + + | Marital Status | | + + + | Pentecostal Affiliation | 1009 | + + + | Race | Unknown | + + + | Ethnic Group | Unknown | + + + Author + + + | Author | [facility] | | | and Jose Enriqueana | + + + | Organization | [facility] | | | and Jose Enriqueana | + + + | Address | Unknown | + + + | Phone | Unavailable | + + + Support + + + + + | Name | Relationship | Address | Phone | + + + + + | Sharlene Lagunas | ECON | [address] | | | [place] | | [address], [place] | | | | | [address] | | + + + + + | Rickey Bui | ECON | [address] [place], [place] | | | | | [address] | | + + + + + Care Team Providers + +------+ + | Care Interpretive Naturalist Name | Role | Phone | + +------+ + | Tayo Robles DO | PCP | | + +------+ + Reason for Visit + + + | Reason | Comments | + + + | Device Check | Interrogation, due 07/19/16 | | (In-office) | | + + + Encounter Details +--------+ + + + + | Date | Type | Department | Care Team | Description | +--------+ + + + + | 01/19/ | Procedure | [facility] | | Sinoatrial node | | 2015 | visit | [facility] [place] | | dysfunction (HCC) | | | | [address] | | (Primary Dx); | | | | [address] [address] [place] | | Cardiac pacemaker in | | | | [place] | | situ | | | | [address] | | | | | | [phone] | | | +--------+ + + + [...] SERVIN | | | | | | [id number] | | | | | | | | +--------+---------+ + + + documented as of this encounter Procedures + +--------+ + + + | Procedure Name | Priori | Date/Time | Associated Diagnosis | Comments | | | ty | | | | + +--------+ + + + | DEVICE INTERROGATION | Routin | 01/20/2016 | Sinoatrial node | Results for this | | | e | 4:30 PM | dysfunction (HCC) | procedure are in the | | | | PDT | Cardiac pacemaker in | results section. | | | | | situ | | + +--------+ + + + documented in this encounter Results Device Interrogation (01/20/2016 4:30 PM PDT) + + + | Narrative | Performed At | + + + | Ila Baker | [facility] | | ANASTASIYA Vasquez 01/20/2016 16:30 PATIENT NAME: Prabhjot Lee | | | [place] : 1945: AGE: 70 y.o. Pacemaker | | | Evaluation Report January 20, 2016 Reason for evaluation: | | | routineIndication for pacemaker: ICD-10-CM ICD-9-CM 1. Sinoatrial | | | node dysfunction (HCC) I49.5 427.81 Device Interrogation 2. Cardiac | | | pacemaker in situ Z95.0 V45.01 Device Interrogation Patient was | | | seated and device was interrogated. Pacemaker parameters, battery | | | status, percentages pacing and significant arrhythmias were reviewed. | | | Heart rate histograms were assessed for adequate heart rate response | | | and any alerts reviewed. Appropriate lead impedance testing was | | | performed. Pacing impedances were reviewed for any significant | | | changes. Sensing tests were performed by decreasing LRL. Adequacy of | | | pacing thresholds were tested by increasing LRL for each lead and | | | recorded for loss of capture. Final outputs were assessed for adequate | | | safety margins. Please see the attached Paceart report. Supervising | | | and interpreting provider for this device check,Joel Moise MD | | | | | |Patient was [...]
--- OUTSIDE RECORDS SUMMARY | ~2019-10-21 | XMS | Encounter Summary ---
Demographics + + + | Address | [address] | | | [place] [address] | + + + | Home Phone [...] | Author | [facility] | | | and Jose Enriqueana | + + + | Organization | [facility] | | | and Jose Enriqueana | + + + | Address | Unknown | + + + | Phone | Unavailable | + + + Support + + + + + | Name | Relationship | Address | Phone | + + + + + | Sharlene Lagunas | ECON | [address] | | | [address] | | [address] [place] | | | | | [address] | | + + + + + | Rickey Bui | ECON | [address] [place], [place] | | | | | [address] | | + + + + + Care Team Providers + +------+ + | Care Reducing Machine Operator Name | Role | Phone | + +------+ + | Tayo Robles DO | PCP | | + +------+ + Reason for Visit + + + | Reason | Comments | + + + | Device Check | No charge | | (Remote) | | + + + Encounter Details +--------+ + + + + | Date | Type | Department | Care Team | Description | +--------+ + + + + | 11/18/ | Implant | [facility] | Kristen Klein, | Sinoatrial node | | 2015 | Monitor | [facility] [place] | RN | dysfunction (HCC) | | | | [address], | | (Primary Dx); | | | | [place] [address] | | Cardiac pacemaker in | | | | [address] | | situ | | | | [phone] | | | +--------+ + + + [...] SERVIN | | | | | | [address] | | | | | | | [...] [facility] | | | ANASTASIYA Klein 01/04/2015 21:25 PATIENT NAME: Prabhjot Lee | | | [place] : 1945: AGE: 68 y.o. Remote | | | Pacemaker Evaluation Report October 10, 2014 Reason for evaluation: | | | RoutineIndication for pacemaker: ICD-9-CM 1. Sinoatrial node | | | dysfunction ([facility]) 427.81 Device Interrogation 2. Cardiac pacemaker in [...] reviewed. | | | Settings Mode: AAIR<=>DDDR 70-130(130)Atrial Output: 1.5V @ | | | 0.4msVentricular Output: 2V @ 0.4ms Data Presenting rhythm is atrial | | | flutter with FLUTE POLISHER. When not in AT/AF: AP 86.6% and FLUTE POLISHER 1.1%. Mostly | | | FLUTE POLISHER when in AT/AF. Heart rate histograms appear appropriate. Battery | | | status: satisfactory. Voltage: 2.79V. Estimated remaining longevity: | | | 11 years. Lead impedances appear within normal limits.Events noted | | | since 06/30/14: 943 MS/ATR, longest >96 hours, 34.7%. On | | | anticoagulation. Appears to be close to 100% AT/AF since . | | | On anticoagulation. Rates controlled. 0 VHR.Device function | | | appears appropriate.Remote follow-up per previous schedule. Patient | | | has office visit with Dr. Moise on 10/14/14.Dr. Joel Moise, | | | has supervised and interpreted this remote. | | | | | |Mode: AAIR<=>DDDR 70-130(130) | | |Atrial Output: 1.5V @ 0.4ms | | |Ventricular Output: 2V @ 0.4ms | | | | | |Data | | | | | |Presenting rhythm is atrial flutter with FLUTE POLISHER. When not in AT/AF: | | |AP 86.6% and FLUTE POLISHER 1.1%. Mostly FLUTE POLISHER when in AT/AF. Heart rate | | |histograms appear appropriate. Battery status: satisfactory. | | |Voltage: 2.79V. Estimated remaining longevity: 11 years. Lead | | |impedances appear within normal limits. | | |Events noted since 06/30/14: | | | 943 MS/ATR, longest >96 hours, 34.7%. On anticoagulation. | | |Appears to be close to 100% AT/AF since . On | | |anticoagulation. Rates controlled. | | | 0 VHR. | | |Device function appears appropriate. | | |Remote follow-up per previous schedule. Patient has office visit | | |with Dr. Moise on 10/14/14. | | |Dr. Joel Moise MD has [...]
--- OUTSIDE RECORDS SUMMARY | ~2019-10-21 | XMS | Encounter Summary ---
Demographics + + + | Address | [address] | | | [place] [address] | + + + | Home Phone | | + + + | Preferred Language | Unknown | + + + | Marital Status | | + + + | Confucianist Affiliation | 1009 | + + + | Race | Unknown | + + + | Ethnic Group | Unknown | + + + Author + + + | Author | [facility] | | | and Jose Enriqueana | + + + | Organization | [facility] | | | and Jose Enriqueana | + + + | Address | Unknown | + + + | Phone | Unavailable | + + + Support + + + + + | Name | Relationship | Address | Phone | + + + + + | Sharlene Lagunas | ECON | [address] | | | [place] | | [address], [place] | | | | | [address] | | + + + + + | Rickey Castaneda | ECON | [address] [place], [place] | | | | | [address] | | + + + + + Care Team Providers + +------+ + | Care Cafeteria Counter Attendant Name | Role | Phone | + [...] Closed | | Radiology | Diagnoses | [place], | [facility] | | | | | Atrial | MD [address] | [address] | | | | | fibrillation | [address] | [place], [place] | | | | | (HCC) | AVE SUITE | [address] | | | | | Procedures | [address] | Phone: | | | | | ECHO | [place], [place] | [phone] | | | | | Transesophag | [address] | Fax: | | | | | eal (SHAYNA) | Phone: | [phone] | | | | | | [phone] | | | | | | | Fax: | | | | | | | [phone] | | +--------+--------+ + + + + Reason for Visit Diagnostic/Screening (Routine) +--------+--------+ + + + + | Status | Reason | Specialty | Diagnoses / | Referred By | Referred To | | | | | Procedures | Contact | Contact | +--------+--------+ + + + + | Closed | | Radiology | Diagnoses | [place], | [facility] | | | | | Atrial | MD [address] | [address] | | | | | fibrillation | | [place], [place] | | | | | (HCC) | AVE SUITE | [address] | | | | | Procedures | [address] | Phone: | | | | | ECHO | [place] | [phone] | | | | | Transesophag | [address] | Fax: | | | | | eal (SHAYNA) | Phone: | [phone] | | | | | | [phone] | | | | | | | Fax: | | | | | | | [phone] | | +--------+--------+ + + + + Encounter Details +--------+ + + + + | Date | Type | Department | Care Team | Description | +--------+ + + + + | 04/30/ | Hospital | [facility] | Rickey Galvan MD | Atrial fibrillation | | 2014 | Encounter | [facility] | [address] | ([facility]) | | | | [facility] | [address] [place], | | | | | [facility] [address] | [place] [address] | | | | | [address]VE [place] | [phone] | | | | | [address] | | | | | | [phone] | | | +--------+ + + + [...] SERVIN | | | | | | [id number] | | | | | | | [...] | | | PRABHJOT CASTANEDA Date: 04/30/2014MRN: [id number] | | | [facility] POOLDOB: 1945 | | | Age: [...] Galvan MDEchocardiographer: Zakia Cifuentes | | | [id number]: | | |No obvious septal defect is [...] |Ordering Physician: Rickey Galvan MD | | |Director Medical Writing: Zakia العراقي | | |[id number]: | | | | | + + --+ + + | Procedure Note | + + | Ariel, Rad Results In - 04/30/2014 5:55 PM PST | | Transesophageal | | Echo Report | | | | Name: PRABHJOT CASTANEDA Date: 04/30/2014 | | Patient Location: [facility] | | : 1945 Age: 68 yrs [...] Ordering Physician: Rickey Galvan MD | | Director Medical Writing: Zakia العراقي | | [id number]: | + + + + | Transcriptions | + + | Stanislaw Tompkins - 04/30/2014 12:00 AM PST | + + + +---------+ + + | Performing | Address | City/State/Zipcode | Phone Number | | Organization | | | | + +---------+ + + | [facility] | | | [phone] | + +---------+ + + | [facility] | | | [phone] | + +---------+ + + documented in this encounter Visit Diagnoses + + | Diagnosis | + + | Atrial fibrillation (HCC) Atrial fibrillation | + + documented in this encounter"
--- OUTSIDE RECORDS SUMMARY | ~2019-10-21 | XMS | Encounter Summary ---
Demographics + + + | Address | [address] | | | [place] [address] | + + + | Home Phone | | + + + | Preferred Language | Unknown | + + + | Marital Status | | + + + | Restorationist Affiliation | 1009 | + + + | Race | Unknown | + + + | Ethnic Group | Unknown | + + + Author + + + | Author | [facility] | | | and Jose Enriqueana | + + + | Organization | [facility] | | | and Jose Enriqueana | + + + | Address | Unknown | + + + | Phone | Unavailable | + + + Support + + + + + | Name | Relationship | Address | Phone | + + + + + | Sharlene Lagunas | ECON | [address] | | | [place] | | [address], [place] | | | | | [address] | | + + + + + | Rickey Bui | ECON | [address] [place], [place] | | | | | [address] | | + + + + + Care Team Providers + +------+ + | Care Quality Assurance Clerk Name | Role | Phone | + +------+ + | Tayo Robles DO | PCP | | + +------+ + Reason for Visit + + + | Reason | Comments | + + + | Device Check | Remote, billed | + + + Encounter Details +--------+ + + + + | Date | Type | Department | Care Team | Description | +--------+ + + + + | 02/18/ | Implant | [facility] | Kristen Klein, | Pacemaker - | | 2013 | Monitor | [facility] [place] | RN | Medtronic - ADDRL1 | | | | [address] | | Adapta - Implanted | | | | [address] [place] | | 02/27/2012 DO NOT | | | | [address] | | RESOLVE (Primary | | | | [phone] | | Dx); Atrial | | | | | | [...] documented as of this encounter Progress Notes Joel Moise MD - 12/15/2013 1:21 PM PDTEP Pacer transmission from November 28, 2013 "Presenting rhythm is Afib with FLIGHT DISPATCHER/VS, frequent blanked fib waves are noted (blanked flutte r search is ON). AP 60.8%. FLIGHT DISPATCHER 35.7%. Heart rate histograms with increased binning at 90 and 100 bpm for both A and V. Atrial histogram showing sensed atrial beats in the 90 and 100 bpm rate bins possibly result of blanked fib waves. Battery status: satisfactory. Voltage: 2.79 V. Estimated remaining longevity: 11 years. Lead impedances appear within normal limits. Events noted since 11/13/13: 15,411 MS for 91.4% of time (possibly 100% - patient has freque nt blanked afib). Longest for 6:16:50 hours on 11/28/13. On anticoagulation." We will ask Judith and or Pao to contact the patient to come to [place] this week for car dioversion instead of waiting to see me on Jan 06 - we will confirm adequate INR's and if n ot , then will do SHAYNA guided. documented in this e ncounter Plan of [...] SERVIN | | | | | | [id number] | | | | | | | | +--------+---------+ + + + documented as of this encounter Procedures + +--------+ + + + | Procedure Name | Priori | Date/Time | Associated Diagnosis | Comments | | | ty | | | | + +--------+ + + + | DEVICE INTERROGATION | Routin | 12/15/2013 | Pacemaker - | Results for this | | | e | 1:24 PM | Medtronic - ADDRL1 | procedure are in the | | | | PDT | Adapta - Implanted | results section. | | | | | 02/27/2012 DO NOT | | | | | | RESOLVE Atrial | | | | | | fibrillation/atrial | | | | | | flutter | | + +--------+ + + + documented in this encounter Results Device Interrogation (12/15/2013 1:24 PM PDT) + + + | Narrative | Performed At | + + + | [facility] | | | ANASTASIYA Klein 12/15/2013 13:24 PATIENT NAME: Prabhjot Lee | | | [facility] : 1945: AGE: 67 y.o. Remote | | | Pacemaker Evaluation Report November 28, 2013 Reason for evaluation: | | | requested to check atrial fibrillation status 2 weeks post-office | | | checkIndication for pacemaker: ICD-9-CM 1. Pacemaker - Medtronic - | | | ADDRL1 Adapta - Implanted 02/27/2012 DO NOT RESOLVE V45.01 Device | | | Interrogation 2. Atrial fibrillation/atrial flutter 427.31 Device | | | Interrogation Remotely captured [...] and programming parameters were reviewed. Settings Mode: AAIR+ | | | 75-130Atrial Output: 1.5V @ 0.4msVentricular Output: 2V @ 0.4ms Data | | | Presenting rhythm is Afib with FLIGHT DISPATCHER/VS, frequent blanked fib waves are | | | noted (blanked flutter search is ON). AP 60.8%. FLIGHT DISPATCHER 35.7%. Heart | | | rate histograms with increased binning at 90 and 100 bpm for both A | | | and V. Atrial histogram showing sensed atrial beats in the 90 and 100 | | | bpm rate bins possibly result of blanked fib waves. Battery status: | | | satisfactory. Voltage: 2.79V. Estimated remaining longevity: 11 years. | | | Lead impedances appear within normal limits.Events noted since | | | 11/13/13: 15,411 MS for 91.4% of time (possibly 100% - patient has | | | frequent blanked afib). Longest for 6:16:50 hours on 11/28/13. On | | | anticoagulation.Device function appears appropriate.Remote follow-up | | | per previous schedule.Report to Team Jose Maria.Dr. Joel Moise, | | | has supervised and interpreted this remote. | | | | | |Mode: AAIR+ 75-130 | | |Atrial Output: 1.5V @ 0.4ms | | |Ventricular Output: 2V @ 0.4ms | | | | | |Data | | | | | |Presenting rhythm is Afib with FLIGHT DISPATCHER/VS, frequent blanked fib waves | | |are noted (blanked flutter search is ON). AP 60.8%. FLIGHT DISPATCHER 35.7%. | | |Heart rate histograms with increased binning at 90 and 100 bpm | | |for both A and V. Atrial histogram showing sensed atrial beats in | | |the 90 and 100 bpm rate bins possibly result of blanked fib | | |waves. Battery status: satisfactory. Voltage: 2.79V. Estimated | | |remaining longevity: 11 years. Lead impedances appear within | | |normal limits. | | |Events noted since 11/13/13: 15,411 MS for 91.4% of time (possibly | | |100% - patient has frequent blanked afib). Longest for 6:16:50 | | |hours on 11/28/13. On anticoagulation. | | |Device function appears appropriate. | | |Remote follow-up per previous schedule. | | |Report to Team Jose Maria. | | |Dr. Joel Moise MD has supervised and interpreted this | | |remote. | | | | | | | | | | | | | | | | | + + + + + | Procedure Note | + + | Kristen Klein RN - 11/28/2013 1:59 PM PDT Formatting of this note might be | | different from the original.PATIENT NAME: Prabhjot Bui : 1945: | | AGE: 67 y.o.Remote Pacemaker Evaluation ReportJuly 2013Reason for evaluation: | | requested to check atrial fibrillation status 2 weeks post-office checkIndication for | | pacemaker: ICD-9-CM 1. Pacemaker - Medtronic - ADDRL1 Adapta - Implanted 02/27/2012 DO | | NOT RESOLVE V45.01 Device Interrogation 2. Atrial fibrillation/atrial flutter 427.31 | | Device Interrogation Remotely captured device data was [...] 0.4msVentricular Output: 2V @ 0.4msDataPresenting rhythm is Afib with FLIGHT DISPATCHER/VS, frequent | | blanked fib waves are noted (blanked flutter search is ON). AP 60.8%. FLIGHT DISPATCHER 35.7%. Heart | | rate histograms with increased binning at 90 and 100 bpm for both A and V. Atrial | | histogram showing sensed atrial beats in the 90 and 100 bpm rate bins possibly result of | | blanked fib waves. Battery status: satisfactory. Voltage: 2.79V. Estimated remaining | | longevity: 11 years. Lead impedances appear within normal limits.Events noted since | | 11/13/13: 15,411 MS for 91.4% of time (possibly 100% - patient has frequent blanked | | afib). Longest for 6:16:50 hours on 11/28/13. On anticoagulation.Device function appears | | appropriate.Remote follow-up per previous schedule.Report to Team Jose Maria.Dr. Maldonado | | Conchis Moise MD has supervised and interpreted this remote. | |Mode: AAIR+ 75-130 | |Atrial Output: 1.5V @ 0.4ms | |Ventricular Output: 2V @ 0.4ms | | | |Data | | | |Presenting rhythm is Afib with FLIGHT DISPATCHER/VS, frequent blanked fib waves are noted (blanked flutter search is ON). AP 60.8%. FLIGHT DISPATCHER 35.7%. Heart rate histograms with increased binning at 90 an d 100 bpm for both A and V. | |Atrial histogram showing sensed atrial beats in the 90 and 100 bpm rate bins possibly resul t of blanked fib waves. Battery status: satisfactory. Voltage: 2.79V. Estimated remaining lo ngevity: 11 years. Lead impedances appear within normal limits. | |Events noted since 11/13/13: 15,411 MS for 91.4% of time (possibly 100% - patient has freque nt blanked afib). Longest for 6:16:50 hours on 11/28/13. On anticoagulation. | |Device function appears appropriate. | |Remote follow-up per previous schedule. | |Report to Team Jose Maria. | |Dr. Joel Moise MD has supervised and interpreted this remote. | + + documented in this encounter Visit Diagnoses + + | Diagnosis | + + | Pacemaker - Medtronic - ADDRL1 Adapta - Implanted 02/27/2012 DO NOT RESOLVE - Primary | | Cardiac pacemaker in situ | + + | Atrial fibrillation/atrial flutter Atrial fibrillation | + + documented in this encounter
--- OUTSIDE RECORDS SUMMARY | ~2019-10-21 | XMS | Encounter Summary ---
Demographics + + + | Address | [address] | | | [place] [address] | + + + | Home Phone | | + + + | Preferred Language | Unknown | + + + | Marital Status | | + + + | Evangelical Affiliation | 1009 | + + + | Race | Unknown | + + + | Ethnic Group | Unknown | + + + Author + + + | Author | [facility] | | | and Jose Enriqueana | + + + | Organization | [facility] | | | and Jose Enriqueana | + + + | Address | Unknown | + + + | Phone | Unavailable | + + + Support + + + + + | Name | Relationship | Address | Phone | + + + + + | Sharlene Lagunas | ECON | [address] | | | [address] | | [address], [place] | | | | | [address] | | + + + + + | Rickey Bui | ECON | [address] [place], [place] | | | | | [address] | | + + + + + Care Team Providers + +------+ + | Care Sheet Metal Contractor Name | Role | Phone | + [...] | | 2020 | Office | [facility] | MD [address] | dysfunction ([facility]) DO | | | Visit | [facility] [address] | [address] | NOT DELETE. | | | | [address] [place] | [place] [address] | (Primary Dx); | | | | [address] | [phone] | Hypertension; Atrial | | | | [phone] | | fibrillation, | | | | | | unspecified type | | | | | | ([facility]); S/P AVR; | | | | | | Pacemaker - | | | | | | Medtronic - ADDRL1 | | | | | | Adapta - SN: | | | | | | [id number] Implanted | | | | | | [...] 1:00 PM PDTContinue present meds and see SHAREPOINT ANALYST/PA in 6 months and in one year See Dr. Dotson with echocardiogram in f/u of aortic valve. documented in this encounter Progress Notes Tianna Quintanilla, Transition Program Manager - 08/19/2019 1:00 PM PDTReview of [...] 10/02/18 & EKG 08/15/18 Records are In [facility] Patient's most recent Lipid Panel and BMP: 11/24/17 Lab report is In [facility] Recent Cardiac ED or Hospital Visits? None Reviewed and agree. Augusto Kunz MD P Augusto Carter MD - 08/19/2019 1:00 PM PDTFormatting of this note might be differen t from the original. [facility] Cardiology -please note that the patient has not responded to phone contact as hardik davenport Prep time has been from 12:54-1:03 PM. Patient Name: Prabhjot Bui : 1945 AGE: 73 y.o. Date of service: 08/19/2019 Established patient visit Telephone Service Patient Location: Patient home Provider [facility] Patient was originally scheduled for [...] moderate TR 29-34 mmHg 3. Echocardiogram 09/11/17 ([place])- mild biatrial dilatation, EF 65-70%, mild [...] - Medtronic - ADDRL1 Adapta - SN: [id number] Implanted 02/27/2012 -pacemaker fu nction is appropriate and 6 years of battery life remain. Heart rate histogram looks reason able although 11% of heart rate is 90-100. In the post COVID-19 9. We may have the patient travel to [place] for adjustments in rate response to have a smoother rate profile. PLAN: Continue present meds and see SHAREPOINT ANALYST/PA in 6 months PAST MEDICAL HISTORY Past [...] Pulmonary vein isolation carried out at the [facility] on 09/01/01. Phlebitis Phlebitis - right leg [...] N/A; Surgeon: Rickey Galvan MD ; Location: [facility] ELECTROPHYSIOLOGY AORTIC ROOT ANEURYSM RESECTION AORTIC [...] file Gets together: Not on file Attends worship service: Not on file Active member of [...] three children. He is retired from the [employer]. He does not smoke or use smokeless tobacco and does not drink alcohol. Denies illici t drug use. He drinks decaffeinated coffee and occasional hot chocolate or regular coffee. 16oz daily No regular exercise at this time but works outside a lot FAMILY HISTORY: Negative for premature atherosclerotic heart disease. His sister had a small stroke at [facility] age 62. She also had hypertension. His [...] Data Presenting rhythm is atrial flutter with DOCENT COORDINATOR/VS, ~78 bpm. DOCENT COORDINATOR 72.8%. Heart rate histogram a ppears appropriate [...] SERVIN | | | | | | [id number] | | | | | | | [...] - Medtronic - ADDRL1 Enrique - : [id number] Implanted 02/27/2012 Cardiac | | pacemaker in situ | + + documented in this encounter
--- OUTSIDE RECORDS SUMMARY | ~2019-10-21 | XMS | Encounter Summary ---
Demographics + + + | Address | [address] | | | [place] [address] | + + + | Home Phone | | + + + | Preferred Language | Unknown | + + + | Marital Status | | + + + | Christianity Affiliation | 1009 | + + + | Race | Unknown | + + + | Ethnic Group | Unknown | + + + Author + + + | Author | [facility] | | | and Jose Enriqueana | + + + | Organization | [facility] | | [...] [address] | | | [address] | | [address], [place] | | | | | [address] | | + + + + + | Rickey Bui | ECON | [address] [place], [place] | | | | | [address] | | + + + + + Care Team Providers + +------+ + | Care Aircraft Structural Repair Mechanic Name | Role | Phone | [...] Check | | 2019 | | [facility] | MD Conchis [address] | (Remote) | | | | [facility] [address] | [place] [address] | | | | | [place] [address] [place] [address] | [place] [address] | | | | | [address] | [phone] | | | | | [phone] | | | +--------+ + + + [...] SERVIN | | | | | | [id number] | | | | | | | | +--------+---------+ + + + documented as of this encounter Visit Diagnoses Not on filedocumented in this encounter"
--- OUTSIDE RECORDS SUMMARY | ~2019-10-21 | XMS | Encounter Summary ---
Demographics + + + | Address | [address] | | | [place] [address] | + + + | Home Phone | | + + + | Preferred Language | Unknown | + + + | Marital Status | | + + + | Mandaeism Affiliation | 1009 | + + + | Race | Unknown | + + + | Ethnic Group | Unknown | + + + Author + + + | Author | [facility] | | | and Jose Enriqueana | + + + | Organization | [facility] | | | and Jose Enriqueana | + + + | Address | Unknown | + + + | Phone | Unavailable | + + + Support + + + + + | Name | Relationship | Address | Phone | + + + + + | Sharlene Lagunas | ECON | [address] | | | [address] | | [address] [place] | | | | | [address] | | + + + + + | Rickey Bui | ECON | [address] [place], [place] | | | | | [address] | | + + + + + Care Team Providers + +------+ + | Care Healthcare Architect Name | Role | Phone | + [...] Check | | 2017 | | [facility] | Sandal Parts Assembler | (Remote) (Due | | | | [address] | | today.) | | | | [address] [place] | | | | | | [address] | | | | | | [phone] | | | +--------+ + + + [...] SERVIN | | | | | | [id number] | | | | | | | | +--------+---------+ + + + documented as of this encounter Visit Diagnoses Not on filedocumented in this encounter"
--- OUTSIDE RECORDS SUMMARY | ~2019-10-21 | XMS | Encounter Summary ---
Demographics + + + | Address | [address] | | | [place] [address] | + + + | Home Phone [...] | Author | [facility] | | | and Jose Enriqueana | + + + | Organization | [facility] | | [...] [address] | | | [address] | | [address], [place] | | | | | [address] | | + + + + + | Rickey Bui | ECON | [address] [place], [place] | | | | | [address] | | + + + + + Care Team Providers + +------+ + | Care Pulling Machine Operator Name | Role | Phone | + +------+ + | Tayo Robles DO | PCP | | + +------+ + Reason for Visit + + + | Reason | Comments | + + + | Device Check | Billed | | (In-office) | | + + + Encounter Details +--------+ + + + + | Date | Type | Department | Care Team | Description | +--------+ + + + + | 09/05/ | Procedure | [facility] | | Fitting and | | 2016 | visit | [facility] | | adjustment of | | | | [address] | | cardiac pacemaker | | | | [address] [place], [place] | | (Primary Dx); | | | | [address] | | Sinoatrial node | | | | [phone] | | dysfunction (HCC) | +--------+ + + + + Social [...] | | | | | [place] | | | | | | [address] | | | | | | | | +--------+---------+ + + + documented as of this encounter Procedures + +--------+ + + + | Procedure Name | Priori | Date/Time | Associated Diagnosis | Comments | | | ty | | | | + +--------+ + + + | DEVICE INTERROGATION | Routin | 09/05/2016 | Fitting and | Results for this | | | e | 1:20 PM | adjustment of | procedure are in the | | | | PDT | cardiac pacemaker | results section. | | | | | Sinoatrial node | | | | | | dysfunction (HCC) | | + +--------+ + + + documented in this encounter Results Device Interrogation (09/05/2016 1:20 PM PDT) + + + | Narrative | Performed At | + + + | [facility] education department chair 09/05/2016 13:20 PATIENT NAME: Prabhjot RAMIREZ | | Jesus Bui : 1945: AGE: 70 y.o. | | | Pacemaker Evaluation Report September 05, 2016 Reason for | | | evaluation: routine Indication for pacemaker: ICD-10-CM | | | ICD-9-CM 1. Fitting and adjustment of cardiac pacemaker Z45.018 | | | V53.31 Device Interrogation 2. Sinoatrial node dysfunction (HCC) | | | I49.5 427.81 Device Interrogation Patient was seated and | | | device was interrogated. Pacemaker parameters, battery status, | | | percentages pacing and significant arrhythmias were reviewed. Heart | | | rate histograms were assessed for adequate heart rate response and | | | any alerts reviewed. Appropriate lead impedance testing was | | | performed. Pacing impedances were reviewed for any significant | | | changes. Sensing tests were performed by decreasing LRL. Adequacy of | | | pacing thresholds were tested by increasing LRL for each lead and | | | recorded for loss of capture. Final outputs were assessed for | | | adequate safety margins. Please see the attached Paceart report. | | | Supervising and interpreting provider for this device check, | | | Joel Moise MD | | + + + [...]
--- OUTSIDE RECORDS SUMMARY | ~2019-10-21 | XMS | Encounter Summary ---
Demographics + + + | Address | [address] | | | [place] [address] | + + + | Home Phone | | + + + | Preferred Language | Unknown | + + + | Marital Status | | + + + | Voodoo Affiliation | 1009 | + + + | Race | Unknown | + + + | Ethnic Group | Unknown | + + + Author + + + | Author | [facility] | | | and Jose Enriqueana | + + + | Organization | [facility] | | | and Jose Enriqueana | + + + | Address | Unknown | + + + | Phone | Unavailable | + + + Support + + + + + | Name | Relationship | Address | Phone | + + + + + | Sharlene Lagunas | ECON | [address] | | | [address] | | [address], [place] | | | | | [address] | | + + + + + | Rickey Bui | ECON | [address] [place], [place] | | | | | [address] | | + + + + + Care Team Providers + +------+ + | Care Refinery Operator Gas Plant Name | Role | Phone | + +------+ + | Tayo Robles DO | PCP | | + +------+ + Reason for Visit + + + | Reason | Comments | + + + | Medication Refill | clonidine | + + + Encounter Details +--------+--------+ + + + | Date | Type | Department | Care Team | Description | +--------+--------+ + + + | 03/30/ | Refill | [facility] | Joel Moise | Medication Refill | | 2017 | | [facility] | MD [address] | ([facility]) | | | | [facility] [address] | [place] [address] | | | | | [address] | [place] [address] | | | | | [address] | [phone] | | | | | [phone] | | | +--------+--------+ + + + [...] SERVIN | | | | | | [address] | | | | | | | | +--------+---------+ + + + documented as of this encounter Visit Diagnoses Not on filedocumented in this encounter"
--- OUTSIDE RECORDS SUMMARY | ~2019-10-21 | XMS | Encounter Summary ---
Demographics + + + | Address | [address] | | | [place] [address] | + + + | Home Phone [...] | Author | [facility] | | | and Jose Enriqueana | + + + | Organization | [facility] | | | and Jose Enriqueana | + + + | Address | Unknown | + + + | Phone | Unavailable | + + + Support + + + + + | Name | Relationship | Address | Phone | + + + + + | Sharlene Lagunas | ECON | [address] | | | [place] | | [place], [place] | | | | | [address] | | + + + + + | Rickey Bui | ECON | [address] [place], [place] | | | | | [address] | | + + + + + Care Team Providers + +------+ + | Care Aircraft Delivery Checker Name | Role | Phone | + [...] Cardiology | Diagnoses | [facility] | | | | | 3/3rds Per | [facility] | Cardiology | | | | | [...] | ov and | [place] | [address] | | | | | device check | [address] | Phone: | | | | | | | [phone] | | | | | | | Fax: | | | | | | | [phone] | +--------+--------+ + + + + Encounter Details +--------+---------+ + + + | Date | Type | Department | Care Team | Description | +--------+---------+ + + + | 01/06/ | Office | [facility] | Joel Moise | Hx of amiodarone | | 2013 | Visit | [facility] | MD [address] | therapy (Primary | | | | [address] | [address] | Dx); Atrial | | | | [address] | [place] [address] | fibrillation/atrial | | | | [address] | [phone] | flutter; Fatigue; | | | | [phone] | | Pacemaker - | | | | | | Medtronic - [id number] | | | | | | Adapta - Implanted | | | | | | 02/27/2012 DO NOT | | | | | | RESOLVE; Status post | | | | | | aortic valve | | | | | | replacement; Edema | +--------+---------+ + + + Social History [...] + + + | Blood Pressure | 120/86 | 01/06/2014 1:13 PM | right | | | | PDT | | + + + + + | Pulse | 80 | 01/06/2014 1:13 PM | regular | | | | [...] + + + + | Weight | 109.3 kg (241 lb) | 01/06/2014 1:13 PM | | | | | PDT | | + + + + + | Height | 195.6 cm (6' 5") | 01/06/2014 1:13 PM | | | | | PDT | | + + + + + | Body Mass Index | 28.58 | 01/06/2014 1:13 PM | | | | | PDT | | + + + + + documented in this encounter Patient Instructions Patient Instructions Joel Moise MD - 01/06/2014 2:06 PM PDTD/C Amiodarone In 1 week - Increase Metoprolol to 50 mg am and 50 mg pm. Pacer evaluation today Continue other meds See Dr. Galvan in 1 month Approximately to get evaluation for Atrial fibrillation Electro nically signed by Joel Moise MD at 01/06/2014 2:09 PM PDT documented in this encounter Progress Notes Joel Moise MD - 01/06/2014 6:37 AM PDTFormatting of this note might be different fr om the original. PATIENT NAME: Prabhjot Bui : 1945: AGE: 68 y.o. Joel Moise MD PRIMARY CARE: Tayo Robles DATE OF SERVICE: 01/06/2014 CHIEF COMPLAINT: Chief Complaint Patient presents with Atrial Fibrillation CURRENT ASSESSMENT BY PROBLEM LIST PATIENT NAME: Prabhjot Bui : 1945: AGE: 67 y.o. Joel Moise MD PRIMARY CARE: Tayo Robles DATE OF SERVICE: 11/13/2013 CHIEF COMPLAINT: Chief Complaint Patient presents with Atrial Fibrillation CURRENT ASSESSMENT BY PROBLEM LIST 1. Pacemaker Pacemaker function is appropriate 2. A fibrillation In mid December the pacemaker interrogation indicates he is in atrial fibrillation/atrial flu tter 90% the time. 3. Fatigue Not as much of complaint at this time. 4. Nocturnal urinary frequency Trial of Flomax and will hold Atacand do not have his blood pressure be too low. Urinary frequency improved on Flomax for 5. Significant edema Edema is stable. 6. Sleep disturbance Melatonin is helpful but the patient is to get the dose adjusted. 7. Aortic valve placement Functioning well by exam and by echo. PLAN 1. As he is now staying in rhythm, we will stop amiodarone. 2. In one week he will increase his beta niko for better rate control 3. We may need to increase beta niko further depending on rate control. 4. We'll need to watch Coumadin off amiodarone. He'll need more warfarin 5. Appointment with Dr. Galvan regarding consultation for repeat ablation recognizing he h as had one pulmonary vein isolation Dr. Camilo and 1 surgical maze. FOLLOWUP Return in about 4 weeks (around 02/03/2014) for Dr. Galvan. MEDICATION ADJUSTMENTS New Prescriptions No medications on file These Medications Have Changed Start Taking Instead of Testosterone Cypionate (DEPO-TESTOSTERONE IM) Testosterone Cypionate (DEPO-TESTOSTERONE IM ) Dosage: Twice a week. Dosage: OIL three times a week amiodarone (PACERONE) 200 mg tablet amiodarone (PACERONE) 200 mg tablet Dosage: Take 300 mg by mouth Daily. He takes 200 mg in the morning and 100 mg at bed time . - Oral Dosage: Take 1.5 tablets by mouth Daily. Take 400mg daily for 1 week starting 11/14 for 1 week. - Oral Medications Discontinued During This Encounter Medication Reason amiodarone (PACERONE) 200 mg tablet Testosterone Cypionate (DEPO-TESTOSTERONE IM) NEW ORDERS No orders of the defined types were placed in this encounter. HISTORY OF PRESENT ILLNESS 68 y.o. year old male seen in follow up for , listed above. He continues to feel fatigued. He is not aware of palpitations in the Chau his heart rhythm was more regular. He has improved urinary flow on Flomax and saw a urologist. Neurologist stated he did not necessar isadora need a prostatectomy. He is on melatonin now in according to his is trying to adju st the dose to work well. If CPAP is not as effective as he is not tolerating it as well se condary to nasal allergies. He tries not to take naps at night as was recommended by the pe sh[facility]baze at the sleep Center. His edema is stable and he did not try support stockings due to t he heat. POST VISIT MEDICATIONS: Current Outpatient Prescriptions Medication Sig amiodarone (PACERONE) 200 mg tablet Take 300 mg by mouth Daily. He takes 200 mg in the morning and 100 mg at bed time. CHELATED MAGNESIUM 100 MG TABS Take 100 [...] SULFATE IN D5W IV SOLN twice weekly Melatonin-Pyridoxine (MELATIN) 3-1 MG TABS Take 0.5 mg by mouth. metoprolol succinate (TOPROL-XL) 50 mg 24 hr tablet Take 75 mg by mouth Daily. Takes 50 mg in am and 25 mg in evening. NADH Disodium POWD by Does not apply route Daily. non-formulary medication prevegan 10g 1 capsule daily [place], Serenoa repens, (SAW PALMETTO PO) CAPS four daily tamsulosin (FLOMAX) 0.4 mg CAPS Take 0.4 mg by mouth daily (after breakfast). TAURINE PO Six caps daily Testosterone Cypionate (DEPO-TESTOSTERONE IM) Twice a week. [...] disease; Colon polyp (1989); Aortic root dilation (); Elevated bilirubin; Leg swelling; Phlebitis; History of echocardiogram; and History of biopsy. Prabhjot has past surgical history that includes Cardioversion (06/19/00,11/24/00,07/25/01,10/18/01, 12/26/02,12/02/04); Atrial ablation surgery; Inguinal hernia repair; Wrist surgery; Cholecystec sandor; AORTIC ROOT REPLACEMENT AND REIMPLANTATION OF CORONARY ARTERIES (05/28/08); ASCENDING AO RTA REPLACEMENT (05/28/08); Cardiac pacemaker placement (02/27/12); Cardioversion (03/07/13); a nd shoulder surgery (05/28/13). Family History: His family history includes Atrial Fibrillation in his mother; Colon canc er in his brother; Hypertension in his mother and sister; and Stroke (age of onset:62) in hi s sister. Social History: He reports that he has never smoked. He has never used smokeless tobacco. He reports that he does not drink alcohol or use illicit drugs. ROS 14 point ROS was completed and is negative except for: General-fatigue. Years-hearing loss . Respiratory no shortness breath. dysuria. MS/back pain and joint pain. Seasonal all ergies. Neuro-tremor. Psych-insomnia and memory loss. PHYSICAL EXAM BP 120/86 | Pulse 80 | Ht 1.956 m (6' 5") | Wt 109.317 kg (241 lb) | BMI 28.57 kg/m2 Blood pressures are equal in upper extremities. Body mass index is 28.57 kg/(m^2). GENERAL: Pleasant appearing in no apparent distress HEENT: Conjunctivae and lids are normal in appearance. Eyes: Extraocular movements intact. NECK: Supple, no JVD, Carotids are 2+ and brisk bilaterally without bruits. LUNGS: Full expansion. Clear to auscultation. CHEST: Well-healed midline sternotomy. Well-healed pacemaker site. CARDIAC: PMI is non-displaced. S1-S2 normal without murmur or gallop ABDOMEN: Soft, non-tender, nondistended with normal, active bowel sounds. Normal abdominal pulsation without bruit. EXTREMITIES: No clubbing or cyanosis. There is 3+ edema. Right greater than left PULSES: Right: radial 2+. Left: radial 2+, posterior tibial 1+ bilaterally NEUROLOGIC: Non-focal. Patient is oriented to time, place, and person. Normal affect. SKIN: No rashes or skin breakdown. MUSCULOSKELETAL: Back kyphosis. Muscle strength is equal bilaterally. January 06, 2014 Atrial fibrillation/atrial flutter 90% of the time. A paced 50%. V. paced 66%. January 02, 2014 Settings Mode: AAIR+ Atrial Output: 1.5V @ 0.4ms Ventricular Output: 2V @ 0.4ms Data Presenting rhythm is Atrial Flutter with DRAIN TECHNICIAN/VS. Frequent blanked flutter waves are noted (b lanked flutter search is On). AP 15.7%. DRAIN TECHNICIAN 67.9%. Heart rate histograms appear appropriate. Battery status: satisfactory. Voltage: 2.79 V. Estimated remaining longevity: 11 years. Lead impedances appear within normal limits. Events noted: 49,812 MS for 91.1% of time. 9,615 AHR's, longest for 12:13:24 hours. On anti coagulation. Device function appears appropriate. Remote follow-up in [address] Joel Moise MD has supervised and interpreted LABS Lab Results Component Value Date CHOL 124 10/15/2010 TRIG 49 10/15/2010 HDL 44 10/15/2010 LDL 70 10/15/2010 ALT 26 03/07/2013 AST 27 03/07/2013 CREA 1.02 03/07/2013 Thank you for allowing me to participate in the care of this patient. If you have any ques tions, please do not hesitate to contact me. Signed by: Joel Moise MD 01/06/2014, 14:16 Patient Care Team: Tayo Robles as PCP - General (Family Medicine - Sports Medicine) KENNETH Givens (Physician Horticultural Specialty Grower Field) Joel Moise MD as Physician (Cardiology) Portions of this report were transcribed using voice recognition software. Every effort was made to ensure accuracy; however, inadvertent computerized stage set up worker errors may be pres ent. documented in th is encounter Plan of Treatment +--------+---------+ + + + | Date | Type | Specialty | Care Team | Description | +--------+---------+ + + + | 10/30/ | Office | Sleep Medicine | Rickey Zaragoza PA | | | 2019 | Visit | | [address] | | | | | | [place] | | | | | | [id number] | | | | | | | | +--------+---------+ + + + documented as of this encounter Visit Diagnoses + + | Diagnosis | + + | Hx of amiodarone therapy - Primary Follow-up examination following completed | | treatment with high-risk medications, not elsewhere classified | + + | Atrial fibrillation/atrial flutter Atrial fibrillation | + + | Fatigue Malaise and fatigue | + + | Pacemaker - Medtronic - [id number] Adapta - Implanted 02/27/2012 DO NOT RESOLVE Cardiac | | pacemaker in situ | + + | Status post aortic valve replacement Heart valve replaced by other means | + + | Edema | + + documented in this encounter
--- OUTSIDE RECORDS SUMMARY | ~2019-10-21 | XMS | Encounter Summary ---
Demographics + + + | Address | [address] | | | [place] [address] | + + + | Home Phone | | + + + | Preferred Language | Unknown | + + + | Marital Status | | + + + | Restorationist Affiliation | 1009 | + + + | Race | Unknown | + + + | Ethnic Group | Unknown | + + + Author + + + | Author | [facility] | | | and Jose Enriqueana | + + + | Organization | [facility] | | | and Jose Enriqueana | + + + | Address | Unknown | + + + | Phone | Unavailable | + + + Support + + + + + | Name | Relationship | Address | Phone | + + + + + | Sharlene Lagunas | ECON | [address] | | | [place] | | [address], [place] | | | | | [address] | | + + + + + | Rickey Bui | ECON | [address] [place], [place] | | | | | [address] | | + + + + + Care Team Providers + +------+ + | Care Electrical Equipment Tester Name | Role | Phone | [...] Description | +--------+---------+ + + + | 07/05/ | Office | [facility] | Rickey Zaragoza PA | ABAD on CPAP (Primary | | 2017 | Visit | SLEEP DISORDER [address] | [address] | Dx) | | | | [address] [place] | [place] | | | | | [place] [address] | [address] | | | | | [phone] | | | +--------+---------+ + + + [...] + + + | Blood Pressure | 124/82 | 07/05/2016 10:54 AM | | | | | PST | | + + + + + | Pulse | 87 | 07/05/2016 10:54 AM | | | | | PST | | + + + + + | Temperature | - | - | | + + + + + | Respiratory Rate | 16 | 07/05/2016 10:54 AM | | | | | PST | | + + + + + | Oxygen Saturation | 97% | 07/05/2016 10:54 AM | | | | | PST | | + + + + + | Inhaled Oxygen | - | - | | | Concentration | | | | + + + + + | Weight | 105.2 kg (231 lb | 07/05/2016 10:54 AM | | | | 14.4 oz) | PST | | + + + + + | Height | 193 cm (6' 4") | 07/05/2016 10:54 AM | | | | | PST | | + + + + + | Body Mass Index | 28.23 | 07/05/2016 10:54 AM | | | | | PST | | + + + + + documented in this encounter Progress Notes Jacqueline Brooks, Contract Management Specialist - 07/06/2016 9:19 AM PST 07/05/16 1000 Jules Depression Inventory-II Depression Score 8 - Minimal depression Insomnia Severity Index Insomnia Severity Index 10 [place] Sleepiness Scale Sitting and reading 2 Watching TV 1 Sitting, inactive in a public place (e.g. a theatre or a meeting) 1 As a passenger in a car for an hour without a break 1 Lying down to rest in the afternoon when circumstances permit 2 Sitting and talking to someone 1 Sitting quietly after a lunch without alcohol 1 In a car, while stopped for a few minutes in traffic 0 Total score 9 SF-36v2 Score PF 47.97 RP 50.42 BP 46.68 GH 37.97 VT 46.66 SF 47.31 RE 56.17 MH 56.1 PCS 42.62 MCS 55.06 Rickey Sierra PA - 07/05/2016 10:00 AM PSTFormatting of this note might be different from the orig inal. Subjective: Patient ID: Prabhjot Bui is a 70 y.o. male. HPI last office visit: 06/09/2015 date of polysomnography: 03/01/2004 AHI: 14.0 (35.3 during REM) O2%: 90% Machine type: ResMed S9 Mask type: full face mask DME: [facility] [place] pressure: 6-16 cm Median: cm 95%: 10.0 cm maxium: cm Nights using CPAP: 361/365 154/162 175/182 193/202 342/365 (no download -CPAP memory) % of nights >4 hours: 86% 50% 31% 40% 130/365 Average usage (all nights): 5:24 3:55 3:13 3:27 3:30 average usage (nights used): 5:28 4:07 3:21 AHI: 3.7 Prabhjot comes in for CPAP compliance. He continues to wear his CPAP regularly. He has starte d to develop it into a regular part of his sleep routine. He has struggled with wearing it for the duration of his sleep on most nights in the past. He says he has started to adjust to it and is feeling more comfor for much of the last 3 months. His compliance has fluctuat ed over the years, but he has noticed that he is not sleeping as well when he sleeps without his CPAP. He sleeps quite a bit better when he wears his CPAP for the duration of his slee p. He feels that his CPAP may not be working properly and should be replaced. He thinks th is may help him wear it for the duration of his sleep. I have discussed the download and results of the paperwork in detail. The download shows t hat his sleep apnea is well controlled, with an AHI of 3.7. It also shows that his leaks ar e significant on most nights. BP 124/82 mmHg | Pulse 87 | Resp 16 | Ht 1.93 m (6' 4") | Wt 105.189 kg (231 lb 14.4 oz) | BMI 28.24 kg/m2 | SpO2 97% Review of Systems Objective: Physical Exam Assessment: Problem #1: OBSTRUCTIVE SLEEP APNEA (VJL22-V81.33) This is controlled with CPAP. His CPAP compliance is going pretty well. He is using his C PAP consistently, but struggles with wearing it for the duration of his sleep. This has imp roved during the last few months. He feels that his CPAP may not be working properly and ne eds to be replaced. Plan: 1. He is to continue with CPAP indefinitely. 2. We have faxed a prescription to [facility] [place] for a ResMed AirSense 10 with a pr essure range of 6-16 cm. 3. I have recommended that he work toward wearing his CPAP 100% of the time he is asleep. I will follow up again in 1 month, sooner prn. Fifteen minutes were spent [id number], wi th the majority of time spent [...] 2019 | Visit | | [address] | | | | | | [place] | | | | | | [id number] | | | | | | | | +--------+---------+ + + + documented as of this encounter Visit Diagnoses + + | Diagnosis | + + | ABAD on CPAP - Primary Obstructive sleep apnea (adult) (pediatric) | + + documented in this encounter
--- OUTSIDE RECORDS SUMMARY | ~2019-10-21 | XMS | Encounter Summary ---
Demographics + + + | Address | [address] | | | [place] [address] | + + + | Home Phone | | + + + | Preferred Language | Unknown | + + + | Marital Status | | + + + | Anglican Affiliation | 1009 | + + + | Race | Unknown | + + + | Ethnic Group | Unknown | + + + Author + + + | Author | [facility] | | | and Jose Enriqueana | + + + | Organization | [facility] | | | and [...] | | | [place] | | [address] [place] | | | | | [address] | | + + + + + | Rickey Bui | ECON | [address] [place], [place] | | | | | [address] | | + + + + + Care Team Providers + +------+ + | Care Respiratory Therapy Director Name | Role | Phone | + [...] | +--------+ + + + + | 10/05/ | Telephone | JENNIE SIDDIQUI | Debbie Jung, | Device Check | | 2016 | | [facility] | Chief Payroll Clerk | (Remote) | | | | [address] | | | | | | [place] [address] [place] | | | | | | [address] | | | | | | [phone] | | | +--------+ + + + [...]
--- OUTSIDE RECORDS SUMMARY | ~2019-10-21 | XMS | Encounter Summary ---
Demographics + + + | Address | [address] | | | [place] [address] | + + + | Home Phone [...] + | Author | [facility] | | | and Jose Enriqueana | + + + | Organization | [facility] | | | and Jose Enriqueana | + + + | Address | Unknown | + + + | Phone | Unavailable | + + + Support + + + + + | Name | Relationship | Address | Phone | + + + + + | Sharlene Lagunas | ECON | [address] | | | [place] | | [place], [place] | | | | | [address] | | + + + + + | Rickey Bui | ECON | [address] [place], [place] | | | | | [address] | | + + + + + Care Team Providers + +------+ + | Care Marine Structural Welder Name | Role | Phone | + [...] Description | +--------+--------+ + + + | 08/21/ | Refill | JENNIE SIDDIQUI | Joel Moise | Medication Refill | | 2017 | | CARDIOLOGY [place] | MD Conchis [address] [place] [address] | | | | | [address] | [address] [facility] [address] | | | | | [address] | [place] [address] | | | | | [place] | [phone] | | | | | [address] | | | | | | [phone] | | | +--------+--------+ + + + [...] SERVIN | | | | | | [address] | | | | | | | | +--------+---------+ + + + documented as of this encounter Visit Diagnoses Not on filedocumented in this encounter"
--- OUTSIDE RECORDS SUMMARY | ~2019-10-21 | XMS | Encounter Summary ---
Demographics + + + | Address | [address] | | | [place] [address] | + + + | Home Phone [...] | Author | [facility] | | | and Jose Enriqueana | + + + | Organization | [facility] | [...] [address] | | | [place] | | [address], [place] | | | | | [address] | | + + + + + | Rickey Bui | ECON | [address] [place], [place] | | | | | [address] | | + + + + + Care Team Providers + +------+ + | Care Guest Relations Manager Name | Role | Phone | [...] 11/18/ | Implant | JENNIE [facility]DIQU[facility] | Damaris Preciado, | Sinoatrial node | | 2019 | Monitor | [facility] [place] | RN | dysfunction (HCC) | | | | [address] | | (Primary Dx); | | | | [address] [place], [place] | | Cardiac pacemaker in | | | | [address] | | situ | | | | [phone] | | | +--------+ + + + [...] SERVIN | | | | | | [id number] | | | | | | | | +--------+---------+ + + + documented as of this encounter Procedures + +--------+ + + + | Procedure Name | Priori | Date/Time | Associated Diagnosis | Comments | | | ty | | | | + +--------+ + + + | DEVICE | Routin | 11/18/2018 | Sinoatrial node | Results for this | | INTERROGATION- | e | 11:59 PM | dysfunction (HCC) | procedure are in the | | REMOTE | | PDT | Cardiac pacemaker in | results section. | | | | | situ | | + +--------+ + + + documented in this encounter Results Device Interrogation - Remote (11/18/2018 11:59 PM PDT) + + + | Narrative | Performed At | + + + | Damaris Tolbert | [facility] | | ANASTASIYA Preciado 11/18/2018 16:34PATIENT NAME: Prabhjot Lee | | | [place] : 1945: AGE: 72 y.o.Remote | | | Pacemaker Evaluation Report October 05, 2018 Reason for evaluation: | | [...] Data Presenting rhythm is atrial flutter with SECURITIES SALES ASSOCIATE, | | | ~84 bpm. SECURITIES SALES ASSOCIATE 70%. Heart rate histogram appears appropriate. Battery | | | status: satisfactory. Voltage: 2.78 V. Estimated remaining longevity: | | | 7.0 years. Lead impedance appears within normal limits.Events noted | | | since 08/15/18: None.Device function appears appropriate. Remote | | | follow-up in 3 months. [...] | |Presenting rhythm is atrial flutter with SECURITIES SALES ASSOCIATE, ~84 bpm. SECURITIES SALES ASSOCIATE 70%. | | |Heart rate histogram appears appropriate. | | |Battery status: satisfactory. Voltage: 2.78 V. Estimated | | |remaining longevity: 7.0 years. Lead impedance appears within | | |normal limits. | | |Events noted since 08/15/18: None. | | |Device function appears appropriate. | | | | | |Remote follow-up in 3 months. [...]
--- OUTSIDE RECORDS SUMMARY | ~2019-10-21 | XMS | Encounter Summary ---
Demographics + + + | Address | [address] | | | [place] [address] | + + + | Home Phone [...] [address] | | | [place] | | [address], [place] | | | | | [address] | | + + + + + | Rickey Bui | ECON | [address] [place], [place] | | | | | [address] | | + + + + + Care Team Providers + +------+ + | Care Rn Residential Name | Role | Phone | + [...] Clearance | | 2015 | | [facility]Y [facility] | MD Conchis [address] [place] [address] | | | | | [address] | [place] [address] | | | | | [place] [address] [place], [place] | [place] [address] | | | | | [address] | [phone] | | | | | [phone] | | | +--------+ + + + [...] | | | | | | [place] | | | | | | [address] | | | | | | | | +--------+---------+ + + + documented as of this encounter Visit Diagnoses Not on filedocumented in this encounter"
--- OUTSIDE RECORDS SUMMARY | ~2019-10-21 | XMS | Encounter Summary ---
Demographics + + + | Address | [address] | | | [place] [address] | + + + | Home Phone [...] | Author | [facility] | | | and Jose Enriqueana | + + + | Organization | [facility] | | | [...] [address] | | | [place] | | [address], [place] | | | | | [address] | | + + + + + | Rickey Bui | ECON | [address] [place], [place] | | | | | [address] | | + + + + + Care Team Providers + +------+ + | Care First Coat Sander Name | Role | Phone | + [...] + + + + | 04/03/ | Telephone | JENNIE SIDDIQUI | Joel Moise | Device Check | | 2019 | | [facility]OLOGY [facility] | MD [address] | (Remote) | | | | [facility] [address] | [place] [address] | | | | | [place] [address] [place] | [place] [address] | | | | | [address] | [phone] | | | | | [phone] | | | +--------+ + + + [...]
--- OUTSIDE RECORDS SUMMARY | ~2019-10-21 | XMS | Encounter Summary ---
Demographics + + + | Address | [address] | | | [place] [address] | + + + | Home Phone | | + + + | Preferred Language | Unknown | + + + | Marital Status | | + + + | Congregation Affiliation | 1009 | + + + | Race | Unknown | + + + | Ethnic Group | Unknown | + + + Author + + + | Author | [facility] | | | and Jose Enriqueana | + + + | Organization | [facility] | | | and Jose Enriqueana | + + + | Address | Unknown | + + + | Phone | Unavailable | + + + Support + + + + + | Name | Relationship | Address | Phone | + + + + + | Sharlene Lagunas | ECON | [address] | | | [place] | | [address], [place] | | | | | [address] | | + + + + + | Rickey Bui | ECON | [address] [place], [place] | | | | | [address] | | + + + + + Care Team Providers + +------+ + | Care Brush Painter Name | Role | Phone | + [...] + + | 07/05/ | Office | [facility] | Rickey Zaragoza PA | ABAD on CPAP (Primary | | 2017 | Visit | SLEEP DISORDER [address] | [address] | Dx) | | | | [address] [place] | [place] | | | | | [place] [address] | [address] | | | | | [phone] | | | +--------+---------+ + + + [...] in this encounter Progress Notes Jacqueline Brooks, Studio Coordinator - 07/06/2016 9:19 AM PST 07/05/16 1000 Jules Depression Inventory-II Depression Score 8 - Minimal depression Insomnia Severity Index Insomnia Severity Index 10 [place] Sleepiness Scale Sitting and reading 2 Watching [...] S9 Mask type: full face mask DME: [facility] in [place] pressure: 6-16 cm Median: cm 95%: 10.0 [...] Exam Assessment: Problem #1: OBSTRUCTIVE SLEEP APNEA (ECV17-Y87.33) This is controlled with CPAP. His CPAP [...] 2. We have faxed a prescription to [facility] in [place] for a ResMed AirSense 10 with a pr essure range of 6-16 cm. 3. I have recommended that he work toward wearing his CPAP 100% of the time he is asleep. I will follow up again in 1 month, sooner prn. Fifteen minutes were spent [id number], wi th the majority of time spent in counseling. Rcikey Zaragoza PA-C Cc: Taoy Robles DO documented in this enco unter Plan of Treatment +--------+---------+ + + + | Date | Type | Specialty | Care Team | Description | +--------+---------+ + + + | 10/30/ | Office | Sleep Medicine | Rickey Zaragoza PA | | | 2019 | Visit | | [address] | | | | | | [place] | | | | | | [id number] | | | | | | | | +--------+---------+ + + + documented as of this encounter Visit Diagnoses + + | Diagnosis | + + | ABAD on CPAP - Primary Obstructive sleep apnea (adult) (pediatric) | + + documented in this encounter
--- OUTSIDE RECORDS SUMMARY | ~2019-10-21 | XMS | Encounter Summary ---
Demographics + + + | Address | [address] | | | [place] [address] | + + + | Home Phone [...] + | Author | [facility] | | | and Jose Enriqueana | + + + | Organization | [facility] | | [...] [address] | | | [place] | | [place], [place] | | | | | [address] | | + + + + + | Rickey Bui | ECON | [address] [place], [place] | | | | | [address] | | + + + + + Care Team Providers + +------+ + | Care Elevator Service Technician Name | Role | Phone [...] Description | +--------+--------+ + + + | 06/26/ | Refill | JENNIE SIDDIQUI | Joel Moise | Medication Refill | | 2018 | | CARDIOLOGY [facility] | MD [facility] [address] [place] [address] | | | | | [facility] [address] | [facility] [address] | | | | | [place] [address] [place] | [place] [address] | | | | | [address] | [phone] | | | | | [phone] | | | +--------+--------+ + + + [...] SERVIN | | | | | | [id number] | | | | | | | | +--------+---------+ + + + documented as of this encounter Visit Diagnoses Not on filedocumented in this encounter"
--- OUTSIDE RECORDS SUMMARY | ~2019-10-21 | XMS | Encounter Summary ---
Demographics + + + | Address | [address] | | | [place] [address] | + + + | Home Phone | | + + + | Preferred Language | Unknown | + + + | Marital Status | | + + + | Evangelical Affiliation | 1009 | + + + | Race | Unknown | + + + | Ethnic Group | Unknown | + + + Author + + + | Author | [facility] | | | and Jose Enriqueana | + + + | Organization | [facility] | [...] [address] | | | [place] | | [address], [place] | | | | | [address] | | + + + + + | Rickey Bui | ECON | [address] [place], [place] | | | | | [address] | | + + + + + Care Team Providers + +------+ + | Care Railroad Construction Director Name | Role | Phone | [...] | (Primary Dx); | | | | [address] | | Cardiac pacemaker in | | | | [address] | | situ | | | | [phone] | | | +--------+ + + + [...] SERVIN | | | | | | [address] | | | | | | | | +--------+---------+ + + + documented as of this encounter Procedures + +--------+ + + + | Procedure Name | Priori | Date/Time | Associated Diagnosis | Comments | | | ty | | | | + +--------+ + + + | DEVICE | Routin | 08/19/2017 | Sinoatrial node | Results for this | | INTERROGATION- | e | 11:59 PM | dysfunction (HCC) | procedure are in the | | REMOTE | | PDT | Cardiac pacemaker in | results section. | | | | | situ | | + +--------+ + + + documented in this encounter Results Device Interrogation - Remote (08/19/2017 11:59 PM PDT) + + + | Narrative | Performed At | + + + | Beata Fernandez | [facility] | | [place] 08/19/2017 13:24 PATIENT NAME: Prabhjot Lee | | | [place] : 1945: AGE: 71 y.o. Remote | | | Pacemaker Evaluation Report July 05, 2017 Reason for evaluation: | | [...] were reviewed. Settings Mode: VVIR 70-130Ventricular Output: 2.0V @ | | | 0.4ms (Adaptive) Data Presenting rhythm is atrial fibrillation with | | | HOUSING MANAGEMENT REPRESENTATIVE, ~78 bpm. HOUSING MANAGEMENT REPRESENTATIVE 56.7%. Heart rate histogram appears somewhat broad | | | with ~35% of rates >110 bpm.Battery status: satisfactory. Voltage: | | | 2.79 V. Estimated remaining longevity: 9 years. Lead impedance | | | appears within normal limits.Events noted since 09/05/16: (seen on | | | prior remotes) 6 VHR episodes, longest 2:18 minutes on 03/10/17, most | | | recent 03/12/17. Markers and EGMs show irregular VS, suggest AT/AF | | | with RVR. On anticoagulation.Device function appears | | | appropriate.Remote follow-up in 3 months. Supervising and interpreting | | | physician for this remote,Joel Moise MD | | |pacing outputs and programming parameters were reviewed. | | | | | |Settings | | | | | |Mode: VVIR 70-130 | | |Ventricular Output: 2.0V @ 0.4ms (Adaptive) | | | | | |Data | | | | | |Presenting rhythm is atrial fibrillation with HOUSING MANAGEMENT REPRESENTATIVE, ~78 bpm. HOUSING MANAGEMENT REPRESENTATIVE | | |56.7%. Heart rate histogram appears somewhat broad with ~35% of | | |rates >110 bpm. | | |Battery status: satisfactory. Voltage: 2.79 V. Estimated | | |remaining longevity: 9 years. Lead impedance appears within | | |normal limits. | | |Events noted since 09/05/16: | | | (seen on prior remotes) 6 VHR episodes, longest 2:18 minutes on | | |03/10/17, most recent 03/12/17. Markers and EGMs show irregular | | |VS, suggest AT/AF with RVR. On anticoagulation. | | |Device function appears [...]
--- OUTSIDE RECORDS SUMMARY | ~2019-10-21 | XMS | Encounter Summary ---
Demographics + + + | Address | [address] | | | [place] [address] | + + + | Home Phone | | + + + | Preferred Language | Unknown | + + + | Marital Status | | + + + | Taoist Affiliation | 1009 | + + + | Race | Unknown | + + + | Ethnic Group | Unknown | + + + Author + + + | Author | [facility] | | | and Jose Enriqueana | + + + | Organization | [facility] | [...] [address] | | | [place] | | [address], [place] | | | | | [address] | | + + + + + | Rickey Bui | ECON | [address] [place], [place] | | | | | [address] | | + + + + + Care Team Providers + +------+ + | Care Chemical Librarian Name | Role | Phone | + +------+ + PCP | Unavailable | + +------+ + Encounter Details +--------+ + + + + | Date | Type | Department | Care Team | Description | +--------+ + + + + | 01/01/ | Hospital | [facility] | | | | 1996 | Encounter | [facility] | | | | | | [address] | | | | | | [place], [place] | | | | | | [address] | | | | | | [phone] | | | +--------+ + + + [...] SERVIN | | | | | | [address] | | | | | | | | +--------+---------+ + + + documented as of this encounter Visit Diagnoses Not on filedocumented in this encounter"
--- OUTSIDE RECORDS SUMMARY | ~2019-10-21 | XMS | Encounter Summary ---
Demographics + + + | Address | [address] | | | [place] [address] | + + + | Home Phone [...] | Author | [facility] | | | and Jose Enriqueana | + + + | Organization | [facility] | | | and [...] [address], [place] | | | | | [address] | | + + + + + | Rickey Bui | ECON | [address] [place], [place] | | | | | [address] | | + + + + + Care Team Providers + +------+ + | Care Repairer Switchgear Name | Role | Phone | + +------+ + PCP | Unavailable | + +------+ + Encounter Details +--------+ + + + + | Date | Type | Department | Care Team | Description | +--------+ + + + + | 10/21/ | Hospital | [facility] | Tramaine Dunbar, | | | 2002 | Encounter | [facility] | MD [address] | | | | | EMERGENCY CENTER | [place] [address] | | | | | [address] | [phone] | | | | | [place], [place] | | | | | | [address] | | | | | | [phone] | | | +--------+ + + + [...] SERVIN | | | | | | [address] | | | | | | | | +--------+---------+ + + + documented as of this encounter Visit Diagnoses Not on filedocumented in this encounter"
--- OUTSIDE RECORDS SUMMARY | ~2019-10-21 | XMS | Encounter Summary ---
Demographics + + + | Address | [address] | | | [place] [address] | + + + | Home Phone | | + + + | Preferred Language | Unknown | + + + | Marital Status | | + + + | Anabaptist Affiliation | [id number] | + + + | Race | Unknown | + + + | Ethnic Group | Unknown | + + + Author + + + | Author | [facility] | | | and Jose Enriqueana | + + + | Organization | [facility] | | | and Jose Enriqueana | + + + | Address | Unknown | + + + | Phone | Unavailable | + + + Support + + + + + | Name | Relationship | Address | Phone | + + + + + | Sharlene Lagunas | ECON | [address] | | | [place] | | [place], [place] | | | | | [address] | | + + + + + | Rickey Bui | ECON | [address] [place], [place] | | | | | [address] | | + + + + + Care Team Providers + +------+ + | Care Program Clerk Name | Role | Phone | + +------+ + | Tayo Robles DO | PCP | | + +------+ + Reason for Visit + + + | Reason | Comments | + + + | Device Check | LMOR to send remote today. | | (Remote) | | + + + Encounter Details +--------+ + + + + | Date | Type | Department | Care Team | Description | +--------+ + + + + | 10/06/ | Telephone | [facility] | Avinash Billingsley, | Device Check | | 2016 | | [facility] | Coil Former | (Remote) ( LMOR to | | | | [address] | | send remote today.) | | | | [place] [facility] [place] | | | | | | [address] | | | | | | [phone] | | | +--------+ + + + [...] SERVIN | | | | | | [id number] | | | | | | | | +--------+---------+ + + + documented as of this encounter Visit Diagnoses Not on filedocumented in this encounter"
--- OUTSIDE RECORDS SUMMARY | ~2019-10-21 | XMS | Encounter Summary ---
Demographics + + + | Address | [address] | | | [place] [address] | + + + | Home Phone | | + + + | Preferred Language | Unknown | + + + | Marital Status | | + + + | Judaism Affiliation | 1009 | + + + | Race | Unknown | + + + | Ethnic Group | Unknown | + + + Author + + + | Author | [facility] | | | and Jose Enriqueana | + + + | Organization | [facility] | | | and Jose Enriqueana | + + + | Address | Unknown | + + + | Phone | Unavailable | + + + Support + + + + + | Name | Relationship | Address | Phone | + + + + + | Sharlene Lagunas | ECON | [address] | | | [place] | | [address], [place] | | | | | [address] | | + + + + + | Rickey Bui | ECON | [address] [place], [place] | | | | | [address] | | + + + + + Care Team Providers + +------+ + | Care Port Purser Name | Role | Phone | + [...] Records Request | | 2013 | | [facility] | MD Conchis [address] [place] [address] | | | | | [address] | [place] [address] | | | | | [address] | [place] [address] | | | | | [address] | [phone] | | | | | [phone] | | | +--------+ + + + [...] 10/30/ | Office | Sleep Medicine | [place], Rickey D, PA | | | 2019 | Visit | | [address] | | | | | | [place] | | | | | | [address] | | | | | | | | +--------+---------+ + + + documented as of this encounter Visit Diagnoses Not on filedocumented in this encounter"
--- OUTSIDE RECORDS SUMMARY | ~2019-10-21 | XMS | Encounter Summary ---
Demographics + + + | Address | [address] | | | [place] [address] | + + + | Home Phone [...] | Author | [facility] | | | and Jose Enriqueana | + + + | Organization | [facility] | | | and Jose Enriqueana | + + + | Address | Unknown | + + + | Phone | Unavailable | + + + Support + + + + + | Name | Relationship | Address | Phone | + + + + + | Sharlene Lagunas | ECON | [address] | | | [place] | | [place], [place] | | | | | [address] | | + + + + + | Rickey Bui | ECON | [address] [place], [place] | | | | | [address] | | + + + + + Care Team Providers + +------+ + | Care Credit Reference Clerk Name | Role | Phone | [...] + + | 05/21/ | Implant | [facility] | Ila Vasquez, | Sinoatrial node | | 2013 | Monitor | [facility] | RN | dysfunction (HCC) DO | | | | [address] | | NOT DELETE. | | | | [place] [address] [place] | | (Primary Dx); | | | | [address] | | Pacemaker - | | | | [phone] | | Medtronic - [id number] | | | | | | Adapta - Implanted | | | | | | 02/27/2012 DO NOT | | | | | | RESOLVE | +--------+ + + + + Social [...] SERVIN | | | | | | [id number] | | | | | | | | +--------+---------+ + + + documented as of this encounter Procedures + +--------+ + + + | Procedure Name | Priori | Date/Time | Associated Diagnosis | Comments | | | ty | | | | + +--------+ + + + | DEVICE INTERROGATION | Routin | 04/06/2014 | Sinoatrial node | Results for this | | | e | 1:28 PM | dysfunction (HCC) DO | procedure are in the | | | | PST | NOT DELETE. | results section. | | | | | Pacemaker - | | | | | | Medtronic - ADDRL1 | | | | | | Adapta - Implanted | | | | | | 02/27/2012 DO NOT | | | | | | RESOLVE | | + +--------+ + + + documented in this encounter Results Device Interrogation (04/06/2014 1:28 PM PST) + + + | Narrative | Performed At | + + + | [facility] | | | ANASTASIYA Vasquez 04/06/2014 13:28 PATIENT NAME: Prabhjot Lee | | | [place] : 1945: AGE: 68 y.o. Remote | | | Pacemaker Evaluation Report April 04, 2014 Reason for evaluation: | | | RoutineIndication for pacemaker: ICD-9-CM 1. Sinoatrial node | | | dysfunction (HCC) DO NOT DELETE. 427.81 Device Interrogation 2. | | | Pacemaker - Medtronic - ADDRL1 Adapta - Implanted 02/27/2012 DO NOT | | | RESOLVE V45.01 Device Interrogation Remotely captured device data | | | was reviewed for pacemaker parameters, battery status, [...] Presenting rhythm is atrial | | | fibrillation with CASE RESOLUTION SPECIALIST and single VS. AP 10.9%. CASE RESOLUTION SPECIALIST 60.5%. Heart | | | rate histograms appear appropriate. Battery status: satisfactory. | | | Voltage: 2.79V. Estimated remaining longevity: 10.5 years. Lead | | | impedances appear within normal limits.Events noted since 01/06/14: | | | 37,195 MS/ATR, longest >96 hours, 93.6%. On | | | anticoagulation.Device function appears appropriate.Remote follow-up | | | per previous schedule.Dr. Joel Moise MD has supervised and | | | interpreted this remote. | | |pacing outputs and programming parameters were reviewed. | | | | | |Settings | | | | | |Mode: AAIR<=>DDDR 75-130 | | |Atrial Output: 1.5V @ 0.4ms | | |Ventricular Output: 2V @ 0.4ms | | | | | |Data | | | | | |Presenting rhythm is atrial fibrillation with CASE RESOLUTION SPECIALIST and single VS. | | |AP 10.9%. CASE RESOLUTION SPECIALIST 60.5%. Heart rate histograms appear appropriate. | | |Battery status: satisfactory. Voltage: 2.79V. Estimated remaining | | |longevity: 10.5 years. Lead impedances appear within normal | | |limits. | | |Events noted since 01/06/14: | | | 37,195 MS/ATR, longest >96 hours, 93.6%. On | | |anticoagulation. | | |Device function appears appropriate. | | |Remote follow-up per previous schedule. | | |Dr. Joel Moise MD has supervised and interpreted this | | |remote. | | | | | + + + + + | Procedure Note | + + | Ila Vasquez RN - 04/04/2014 11:32 AM PST Formatting of this note might be | | different from the original.PATIENT NAME: Prabhjot Bui : 1945: | | AGE: 68 y.o.Remote Pacemaker Evaluation ReportApril 04, 2014Reason for | | evaluation: RoutineIndication for pacemaker: ICD-9-CM 1. Sinoatrial node dysfunction | | ([facility]) DO NOT DELETE. 427.81 Device Interrogation 2. Pacemaker - Medtronic - ADDRL1 | | Adapta - Implanted 02/27/2012 DO NOT RESOLVE V45.01 Device Interrogation Remotely | | captured device data was reviewed for pacemaker parameters, battery status, percentage | | of pacing and significant arrhythmias. Heart rate histograms were evaluated for adequate | | heart rate response and any alerts reviewed. Pacing lead impedances were reviewed for | | any significant changes. Final pacing outputs and programming parameters were | | reviewed.SettingsMode: AAIR<=>DDDR 75-130Atrial Output: 1.5V @ 0.4msVentricular Output: | | 2V @ 0.4msDataPresenting rhythm is atrial fibrillation with CASE RESOLUTION SPECIALIST and single VS. AP 10.9%. | | CASE RESOLUTION SPECIALIST 60.5%. Heart rate histograms appear appropriate. Battery status: satisfactory. | | Voltage: 2.79V. Estimated remaining longevity: 10.5 years. Lead impedances appear | | within normal limits.Events noted since 01/06/14: 37,195 MS/ATR, longest >96 hours, | | 93.6%. On anticoagulation.Device function appears appropriate.Remote follow-up per | | previous schedule.Dr. Joel Moise MD has supervised and interpreted this remote. | |alerts reviewed. Pacing lead impedances were reviewed for any significant changes. Final pa cing outputs and programming parameters were reviewed. | | | |Settings | | | |Mode: AAIR<=>DDDR 75-130 | |Atrial Output: 1.5V @ 0.4ms | |Ventricular Output: 2V @ 0.4ms | | | |Data | | | |Presenting rhythm is atrial fibrillation with CASE RESOLUTION SPECIALIST and single VS. AP 10.9%. CASE RESOLUTION SPECIALIST 60.5%. Hear t rate histograms appear appropriate. Battery status: satisfactory. Voltage: 2.79V. Estimate d remaining longevity: 10.5 years. | |Lead impedances appear within normal limits. | |Events noted since 01/06/14: | | 37,195 MS/ATR, longest >96 hours, 93.6%. On anticoagulation. | |Device function appears appropriate. [...]
--- OUTSIDE RECORDS SUMMARY | ~2019-10-21 | XMS | Encounter Summary ---
Demographics + + + | Address | [address] | | | [place] [address] | + + + | Home Phone | | + + + | Preferred Language | Unknown | + + + | Marital Status | | + + + | Voodoo Affiliation | 1009 | + + + | Race | Unknown | + + + | Ethnic Group | Unknown | + + + Author + + + | Author | [facility] | | | and Jose Enriqueana | + + + | Organization | [facility] | | | [...] [address] | | | [place] | | [address], [place] | | | | | [address] | | + + + + + | Rickey uBi | ECON | [address] [place], [place] | | | | | [address] | | + + + + + Care Team Providers + +------+ + | Care Field Court Researcher Name | Role | Phone | + [...] | 2013 | | [facility] | 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 See Phone note | [facility] | + + + + + + + + | Performing | Address | City/State/Zipcode | Phone Number | | Organization | | | | + + + + + | [facility] | [facility] [address] | [place] [address] | [phone] | | - [facility] | [place] | | | + + + + + XR Chest PA and Lateral (12/10/2013 9:06 AM PDT) + + + | Impressions | Performed At | + + + | Results not interfaced with Rogate. Please see scanned report in | [facility] | | Media tab. No Amiodarone effects noted per ANASTASIYA Wong , dany in | [place] - | | 6 months. See Phone note | [facility] | + + + + + + + + | Performing | Address | City/State/Zipcode | Phone Number | | Organization | | | | + + + + + | [place] [facility] | [facility] [address] | [place] [address] | [phone] | | - [facility] | [place] | | | + + + + + XR Chest PA and Lateral (12/10/2013 9:04 AM PDT) + + + | Impressions | Performed At | + + + | Results not interfaced with Rogate. Please see scanned report in | [place] | | Media tab. No Amiodarone effects noted per ANASTASIYA Wong , dany in | [place] - | | 6 months. See Phone note | [facility] | + + + + + + + + | Performing | Address | City/State/Zipcode | Phone Number | | Organization | | | | + + + + + | [place] [facility] | [facility] [address] | [place] [address] | [phone] | | - [facility] | [place] | | | + + + + + documented in this encounter Visit Diagnoses + + | Diagnosis | + + | Encounter for long-term (current) use of other medications - Primary | + + | Atrial fibrillation/atrial flutter Atrial fibrillation | + + documented in this encounter"
--- OUTSIDE RECORDS SUMMARY | ~2019-10-21 | XMS | Encounter Summary ---
Demographics + + + | Address | [address] | | | [place] [address] | + + + | Home Phone [...] + | Author | [facility] | | | and Jose Enriqueana | + + + | Organization | [facility] | | | and Jose Enriqueana | + + + | Address | Unknown | + + + | Phone | Unavailable | + + + Support + + + + + | Name | Relationship | Address | Phone | + + + + + | Sharlene Lagunas | ECON | [address] | | | [place] | | [address], [place] | | | | | [address] | | + + + + + | Rickey Bui | ECON | [address] [place], [place] | | | | | [address] | | + + + + + Care Team Providers + +------+ + | Care Senior Engineering Technician Name | Role | Phone | [...] 05/20/ | Implant | [facility] | Beata Dorado, | 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 | | | | | situ | | + +--------+ + + + documented in this encounter Results Device Interrogation - Remote (05/20/2019 11:59 PM PST) + + + | Narrative | Performed At | + + + | [facility] | [facility] | | ANASTASIYA Dorado 05/19/2019 6:01 PM PATIENT NAME: Prabhjot Lee | | | [place]ao : 1945: AGE: 73 y.o. 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 OIL FIELD EQUIPMENT MECHANIC 72.4%. Heart rate histogram appears appropriate with a | | | small increase in sensor driven rates 90-100 bpm. Battery status: | | | satisfactory. Voltage: 2.78 V. Estimated remaining longevity: 6 years. | | | Lead impedance appears within normal limits.Events noted since | | | 08/15/18: (seen on prior remotes) 1 HVR episode, 4 seconds on | | | 10/18/18. Atrial EGM shows sudden onset of fast, regular VS (markers | | | only), 8 beats, max V rate 197 bpm. VS beats do not appear to be 1:1 | | | or 2:1 conduction of flutter, possibly NSVT. On | | | anticoagulation.Device function appears appropriate. Remote | | | follow-up in 3 months. Supervising and interpreting physician for this | | | remote,Joel Moies MD | | |Settings | | | | | |Mode: VVIR, 70 (130) | | |Ventricular Output: 2.0V @ 0.4ms (adaptive) | | | | | |Data | | | | | |Presenting rhythm is atrial flutter with OIL FIELD EQUIPMENT MECHANIC, 88 bpm. OIL FIELD EQUIPMENT MECHANIC 72.4%. | | |Heart rate histogram appears appropriate with a small increase in | | |sensor driven rates 90-100 bpm. | | |Battery status: satisfactory. Voltage: 2.78 V. Estimated | | |remaining longevity: 6 years. Lead impedance appears within | | |normal limits. | | |Events noted since 08/15/18: | | | (seen on prior remotes) 1 HVR episode, 4 seconds on 10/18/18. | | |Atrial EGM shows sudden onset of fast, regular VS (markers only), | | |8 beats, max V rate 197 bpm. VS beats do not appear to be 1:1 or | | |2:1 conduction of flutter, possibly NSVT. On anticoagulation. | | |Device function appears [...]
--- OUTSIDE RECORDS SUMMARY | ~2019-10-21 | XMS | Encounter Summary ---
Demographics + + + | Address | [address] | | | [place] [address] | + + + | Home Phone [...] + | Author | [facility] | | | and Jose Enriqueana | + + + | Organization | [facility] ECON | [address] | | | [place] | | [address], [place] | | | | | [address] | | + + + + + | Rickey Bui | ECON | [address] [place], [place] | | | | | [address] | | + + + + + Care Team Providers + +------+ + | Care Tower Truck Driver Name | Role | Phone [...] Closed | | Radiology | Diagnoses | Moise, | [facility] | | | | | S/P AVR | Joel Balderrama, | [address] | | | | | (aortic | [place] [address] | [place], [place] | | | | | valve | [address] | [address] | | | | | replacement) | [address] | Phone: | | | | | Medication | [place] | [phone] | | | | | management | [address] | Fax: | | | | | Procedures | Phone: | [phone] | | | | | ECHO | [phone] | | | | | | Complete | Fax: | | | | | | | [phone] | | +--------+--------+ + + + + Reason for Visit Diagnostic/Screening (Routine) +--------+--------+ + + + + | Status | Reason | Specialty | Diagnoses / | Referred By | Referred To | | | | | Procedures | Contact | Contact | +--------+--------+ + + + + | Closed | | Radiology | Diagnoses | Moise, | [facility] | | | | | S/P AVR | Joel Balderrama, | [address] | | | | | (aortic | MD [address] | [place] | | | | | valve | [address] | [address] | | | | | replacement) | [address] | Phone: | | | | | Medication | [place] | [phone] | | | | | management | [address] | Fax: | | | | | Procedures | Phone: | [phone] | | | | | ECHO | [phone] | | | | | | Complete | Fax: | | | | | | | [phone] | | +--------+--------+ + + + + Encounter Details +--------+ + + + + | Date | Type | Department | Care Team | Description | +--------+ + + + + | 10/02/ | Hospital | [facility] | Joel Moise | S/P AVR (aortic | | 2019 | Encounter | [facility] ECHO [address] Balderrama MD | valve replacement); | | | | [place] | [address] | Medication | | | | [place] [address] | [place] [address] | management | | | | [phone] | [phone] | | | | | | | [...] + +---------+ + + | Coenzyme Q10 (CO | Take 1 capsule by | | 0 | | | | Q-10) 100 MG CAPS | mouth Daily. Also | | | | | | | has | | | | | | | R-Hfnrmo-Pzifsnab | | | | | | | 250 mg & | | | | | | | Pyrroloquinoline PQQ | | | | | | | 10 mg | | | | | + + [...] + + +---------+ + + | MAGNESIUM PO | Take 133 mg by | | 0 | | | | | mouth. | | | | | + + + +---------+ + + | non-formulary | Daily. Nerium po | | 0 | | | | medication | | | | | | + + + +---------+ + + | Potassium | Take 1 capsule by | | 0 | | | | Gluconate 595 MG | mouth Daily. | | | | | | CAPS | | | | | | + + + +---------+ + + | PROAIR HFA 108 (90 | Inhale 2 puffs into | | 1 | 08/24/19 | | | Base) MCG/ACT | the lungs as needed. | | | 17 | | | inhaler | | | | | | + [...] + + | UNABLE TO FIND | Daily. Med Name: | | 0 | | | | | Spirolina | | | | | + + [...] + + + +---------+ + + | ARMOUR THYROID 15 | Take 1 tablet by | | 3 | 08/03/19 | | | MG tablet | mouth every morning. | | | 17 | 9 | | | 75 mg in the AM and | | | | | | | 30 mg in the PM | | | | | + + + +---------+ + + | cloNIDine | TAKE 1 TABLET TWICE | 180 | 0 | 06/27/19 | | | (CATAPRES) 0.2 MG | A DAY *ACTAVIS* | tablet | | 18 | 9 | | tablet | | | | | | + + + +---------+ + + | digoxin (LANOXIN) | TAKE 1 TABLET DAILY | 90 | 3 | 02/27/20 | | | 250 mcg | | tablet | | 18 | 9 | | tabletIndications: | | | | | | | Atrial fibrillation, | | | | | | | unspecified type | | | | | | | (HCC) | | | | | | + + + +---------+ + + | digoxin (LANOXIN) | TAKE 1 TABLET DAILY | 90 | 1 | 08/24/19 | | | 250 mcg | | tablet | | 18 | 9 | | tabletIndications: | | | | | | | Atrial fibrillation, | | | | | | | unspecified type | | | | | | | ([facility]) | | | | | | + + + +---------+ + + | furosemide (LASIX) | Take 20 mg by mouth | | 0 | 08/12/19 | | | 20 mg tablet | as needed. 1 tablet | | | 18 | 9 | | | daily on Monday and | | | | | | | with | | | | | | | Potassium | | | | | + + + +---------+ + + | metoprolol | Take 1.5 tablets by | 270 | 0 | 05/23/19 | | | succinate | mouth 2 times daily. | tablet | | 19 | 9 | | (TOPROL-XL) 50 mg 24 | | | | | | | hr | | | | | | | tabletIndications: | | | | | | | Atrial fibrillation, | | | | | | | unspecified type | | | | | | | ([facility]) | | | | | | + + + +---------+ + + | potassium chloride | 1 tablet on Monday | 30 | 2 | 08/12/19 | | | (K-DUR) 20 mEq ER | and with | tablet | | 18 | 9 | | tablet | Furosemide | | | | | + + + +---------+ + + | SYNTHROID 50 MCG | Take 1 tablet by | | 0 | 02/04/20 | | | tablet | mouth Daily. | | | 14 | 9 | + + + +---------+ + + | testosterone | Inject 100 mg into | | 0 | | | | cypionate | the muscle every 14 | | | | 9 | | (DEPO-TESTOSTERONE) | days. | | | | | | 100 mg/mL injection | | | | | | + [...] SERVIN | | | | | | [id number] | | | | | | | | +--------+---------+ + + + documented as of this encounter Procedures + +--------+ + + + | Procedure Name | Priori | Date/Time | Associated Diagnosis | Comments | | | ty | | | | + +--------+ + + + | ECHO COMPLETE | Routin | 10/02/2018 | S/P AVR (aortic | Results for this | | | e | 1:50 PM | valve replacement) | procedure are in the | | | | PDT | Medication | results section. | | | | | management | | + +--------+ + + + documented in this encounter Results ECHO Complete (10/02/2018 1:50 PM PDT) + +---------+ + + + | Component | Value | Ref Range | Performed | Pathologist | | | | | At | Signature | + +---------+ + + + | BASELINE | 141/81 | mmHg | [facility] | | | BLOOD | | | | | | PRESSURE | | | | | + +---------+ + + + | Patient | 241 lbs | | [facility] | | | Weight | | | | | | (lbs) | | | | | + +---------+ + + + | Patient | 6'4 | | [facility] | | | Height | | | | | + +---------+ + + + | LVIDd | 4.78 | cm | [facility] | | + +---------+ + + + | FS | 8 | % | [facility] | | + +---------+ + + + | LA volume | 115.29 | mL | [facility] | | + +---------+ + + + | Ascending | 3.01 | cm | [facility] | | | aorta | | | | | + +---------+ + + + | Aortic arch | 3.3 | cm | [facility] | | + +---------+ + + + | AV mean | 6.19 | mmHg | [facility] | | | gradient | | | | | + +---------+ + + + | MV Area by | 2.79 | cm2 | [facility] | | | P 1/2 | | | | | | method | | | | | + +---------+ + + + | IVRT | 58.01 | msec | [facility] | | + +---------+ + + + | LVOT peak | 99.24 | cm/s | [facility] | | | daniel | | | | | + +---------+ + + + | LVOT peak | 20.53 | cm | [facility] | | | VTI | | | | | + +---------+ + + + | AV peak daniel | 172 | cm/s | [facility] | | + +---------+ + + + | AV VTI | 34.06 | cm | [facility] | | + +---------+ + + + | AV peak | 11.83 | mmHg | [facility] | | | gradient | | | | | + +---------+ + + + | MV Pressure | 78.87 | msec | [facility] | | | 1/2 time | | | | | + +---------+ + + + | LA Volume | 48 | mL/m2 | [facility] | | | Index | | | | | + +---------+ + + + | AV LVOT | 3.86 | mmHg | [facility] | | | Peak | | | | | | Gradient | | | | | + +---------+ + + + | AV LVOT | 2.01 | mmHg | [facility] | | | Mean | | | | | | Gradient | | | | | + +---------+ + + + | TR Peak | 32 | mmHg | [facility] | | | Gradient | | | | | + +---------+ + + + | TR Velocity | 282.33 | cm | [facility] | | + +---------+ + + + | LV | 8.04 | cm | [facility] | | | Diastolic | | | | | | Length 4C | | | | | + +---------+ + + + | LV Systolic | 16.59 | cm2 | [facility] | | | Area PSAX | | | | | + +---------+ + + + | LV | 64 | % | [facility] | | | Presley's | | | | | | Biplane EF | | | | | + +---------+ + + + | AV | 91.17 | msec | [facility] | | | Acceleratio | | | | | | n Time | | | | | + +---------+ + + + | LV ED | 92.9 | ml | [facility] | | | Volume | | | | | | (Presley's) | | | | | + +---------+ + + + | LV ED | 39 | ml/m2 | [facility] | | | Volume | | | | | | Index | | | | | + +---------+ + + + | LV ES | 33.64 | ml | [facility] | | | Volume | | | | | + +---------+ + + + | LVOT Mean | 65.2 | cm/s | [facility] | | | Velocity | | | | | + +---------+ + + + | MV E' | 17.5 | cm/s | [facility] | | | Lateral | | | | | | Velocity | | | | | + +---------+ + + + | MV E' | 12.81 | cm/s | [facility] | | | Septal | | | | | | Velocity | | | | | + +---------+ + + + | MV | 314.61 | cm/s2 | [facility] | | | Deceleratio | | | | | | n Weld | | | | | + +---------+ + + + | MV | 271.96 | msec | [facility] | | | Deceleratio | | | | | | n Time | | | | | + +---------+ + + + | MV Peak | 85.56 | cm/s | [facility] | | | E-Wave | | | | | + +---------+ + + + | AV Mean | 117.43 | cm/s | [facility] | | | Velocity | | | | | + +---------+ + + + | LA/Aorta | 1.7 | | [facility] | | | Ratio | | | | | + +---------+ + + + | LA Area | 30.18 | cm2 | [facility] | | + +---------+ + + + | LA Systolic | 8.11 | mmHg | [facility] | | | Pressure | | | | | + +---------+ + + + | MV E/E | 6.68 | | [facility] | | | SEPTAL | | | | | + +---------+ + + + | MV E/E | 4.89 | | [facility] | | | LATERAL | | | | | + +---------+ + + + | LA Major | 0.3406 | cm | [facility] | | + +---------+ + + + | LV ES | 14 | ml/m2 | [facility] | | | Volume | | | | | | Index | | | | | + +---------+ + + + | LV Area | 28.09 | cm2 | [facility] | | | Diastolic | | | | | + +---------+ + + + | Aortic Root | 2.94 | cm | [facility] | | | Diameter | | | | | + +---------+ + + + | IVS | 1.09 | cm | [facility] | | | Diastolic | | | | | | Thickness | | | | | | MM | | | | | + +---------+ + + + | LVPW | 1.05 | cm | [facility] | | | Diastolic | | | | | | Thickness | | | | | | MM | | | | | + +---------+ + + + | LV Systolic | 4.4 | cm | [facility] | | | Diameter | | | | | | MM | | | | | + +---------+ + + + | AV Cusp | 1.67 | cm | [facility] | | | Seperation | | | | | | MM | | | | | + +---------+ + + + | LA Systolic | 5 | cm | [facility] | | | Diameter | | | | | | MM | | | | | + +---------+ + + + | TAPSE | 2.3 | cm | [facility] | | + +---------+ + + + | LVEF-TTE | 64 | | [facility] | | | TRANSTHORAC | | | | | | IC ECHO | | | | | + +---------+ + + + + + | Specimen | + + | | + + + + --+ | Narrative | Performed At | + + --+ | Transthoracic | [facility] | | Echocardiography Report (TTE) Demographics Patient Name | | | LEONEL LAZARO Room Number JAZMIN Patient | | | [id number] Date of Study 10/02/2018 | | | Number Visit Number [id number] | | | Referring Physician Joel Moise MD Number | | | [facility] Date of | | | 1945 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 Procedure | | | dateDate: 10/02/2018Start: 01:04 PM Technical Quality: Adequate | | | visualizationStudy Location: Echo LabIndications: Atrial fibrillation, | | | unspecified I48.91 and status post aorticvalve replacement- Z95.2 | | | (ICD-10-CM) - V43.3 (ICD-9-CM).Patient Status: RoutineHeight: 76 | | | inchesWeight: 241 poundsBSA: 2.4 m^2BMI: 29.34 kg/m^2Rhythm: Atrial | | | fibrillationHR: 73 bpmBP: 141/81 mmHg ConclusionsSummaryLeft ventricle | | | is normal in size and function. There is suboptimalendocardial | | | resolution. Ejection fraction is estimated at 65%.Evidence of an | | | normally functioning bioprosthetic aortic valve replacement.No | | | significant stenosis or insufficiency is noted.Moderate tricuspid | | | regurgitation suggestive of a mildly elevated rightsystolic pressure | | | of 37-42 mmHg.The left atrium is moderately dilated.Compared with | | | patient's prior study of 2018, no significant changes arenoted. | | | Signature | | | | | | PM | | | -------- FindingsMitral ValveThickening and calcification of the | | | mitral valve leaflets. There is mild tomoderate insufficiency.Mild | | | mitral annular calcification is present.Aortic ValveEvidence of an | | | normally functioning bioprosthetic aortic valve replacement.No | | | significant stenosis or insufficiency is noted.Tricuspid ValveModerate | | | tricuspid regurgitation suggestive of a mildly elevated rightsystolic | | | pressure of 37-42 mmHg.Pulmonic ValveNormal pulmonic valve structure | | | and function. Normal pulmonary valve andRVOT flow by color and Doppler | | | flow imaging.Left AtriumThe left atrium is moderately dilated.Left | | | VentricleLeft ventricle is normal in size and function. There is | | | suboptimalendocardial resolution. Ejection fraction is estimated at | | | 65%.Right AtriumMildly enlarged right atrial size.Right | | | VentricleNormal right ventricular size.Right ventricle global systolic | | | function is normal.Echodensity is consistent with device wire.TAPSE = | | | 2.3 cm.Pericardial EffusionNo evidence of pericardial | | | effusion.Pleural EffusionNo evidence of pleural | | | effusion.MiscellaneousIVC is normal.Aortic root dimension within | | | normal limits. Valves Mitral Valve Peak E-Wave: 85.56 cm/s Tissue | | | Doppler Septal e' Velocity: 12.81 cm/s Lateral e' Velocity: | | | 17.50 cm/s Septal E/e' Ratio: Lateral E/e' | | | Ratio:4.89 Aortic Valve Peak Velocity: 172 cm/s | | | Mean Gradient: 6.19 mmHg Peak Gradient: 11.83 mmHg Tricuspid Valve | | | TR Velocity: 282.33 cm/s LVOT Peak Velocity: 99.24 cm/s Structures | | | Left Atrium LA A/P Dimension: 5 cm LA | | | Area: 30.18 cm^2 LA/Aorta:1.7 | | | LA Volume: 115.29 ml LA Vol/BSA Index: 48 mL/m^2 LA Major:0.3406 | | | Left Ventricle Diastolic Dimension: 4.78 cm Systolic | | | Dimension: 4.4 cm Septum Diastolic: 1.09 cm PW Diastolic: 1.05 cm EF | | | Mcwgaezal76% EF Calculated: 64% Right Ventrical TAPSE: 2.3 cm | | | Miscellaneous Aorta Aortic Root: 2.94 cm Ascending Aorta: 3.01 cm | | |Thickening and calcification of the mitral valve leaflets. There is mild to | | |moderate insufficiency. | | |Mild mitral annular calcification is present. | | |Aortic Valve | | |Evidence of an normally functioning bioprosthetic aortic valve replacement. | | |No significant stenosis or insufficiency is noted. | | |Tricuspid Valve | | |Moderate tricuspid regurgitation suggestive of a mildly elevated right | | |systolic pressure of 37-42 mmHg. | | |Pulmonic Valve | | |Normal pulmonic valve structure and function. Normal pulmonary valve and | | |RVOT flow by color and Doppler flow imaging. | | |Left Atrium | | |The left atrium is moderately dilated. | | |Left Ventricle | | |Left ventricle is normal in size and function. There is suboptimal | | |endocardial resolution. Ejection fraction is estimated at 65%. | | |Right Atrium | | |Mildly enlarged right atrial size. | | |Right Ventricle | | |Normal right ventricular size. | | |Right ventricle global systolic function is normal. | | |Echodensity is consistent with device wire. | | |TAPSE = 2.3 cm. | | |Pericardial Effusion | | |No evidence of pericardial effusion. | | |Pleural Effusion | | |No evidence of pleural effusion. | | |Miscellaneous | | |IVC is normal. | | |Aortic root dimension within normal limits. | | | | | |Valves | | | | | | Mitral Valve | | | | | | Peak E-Wave: 85.56 cm/s | | | | | | Tissue Doppler | | | | | | Septal e' Velocity: 12.81 cm/s Lateral e' Velocity: 17.50 cm/s | | | Septal E/e' Ratio: Lateral E/e' Ratio:4.89 | | | | | | Aortic Valve | | | | | | Peak Velocity: 172 cm/s Mean Gradient: 6.19 mmHg | | | Peak Gradient: 11.83 mmHg | | | | | | Tricuspid Valve | | | | | | TR Velocity: 282.33 cm/s | | | | | | LVOT | | | | | | Peak Velocity: 99.24 cm/s | | | | | |Structures | | | | | | Left Atrium | | | | | | LA A/P Dimension: 5 cm LA Area: 30.18 cm^2 | | | LA/Aorta:1.7 LA Volume: 115.29 ml | | | LA Vol/BSA Index: 48 mL/m^2 | | | LA Major:0.3406 | | | | | | Left Ventricle | | | | | | Diastolic Dimension: 4.78 cm Systolic Dimension: 4.4 cm | | | Septum Diastolic: 1.09 cm | | | PW Diastolic: 1.05 cm | | | EF Hnrhcnyey77% | | | EF Calculated: 64% | | | | | | Right Ventrical | | | | | | TAPSE: 2.3 cm | | | | | | Miscellaneous | | | | | | Aorta | | | | | | Aortic Root: 2.94 cm | | | Ascending Aorta: 3.01 cm | | | | | + + --+ + + | Procedure Note | + + | Zia George Results In - 10/02/2018 6:20 PM PDT Transthoracic Echocardiography Report | | (TTE) Demographics [facility] Room Number JAZMIN | | Patient [id number] Date of Study 10/02/2018 Number Visit Number | | [id number] Referring Physician Joel Moise MD | | Number [facility] Date of 1945 | | Sheet 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 WILLEM [place] Age 72 year(s) Interpreting | | SEVEN RODRIGUEZ MD Regional 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 There is suboptimalendocardial resolution. | | Ejection fraction is estimated at 65%.Evidence of an normally functioning bioprosthetic | | aortic valve replacement.No significant stenosis or insufficiency is noted.Moderate | | tricuspid regurgitation suggestive of a mildly elevated rightsystolic pressure of 37-42 | | mmHg.The left atrium is moderately dilated.Compared with patient's prior study of 2018, | | no significant changes | | arenoted.Signature | | ------ | | 06:20 | | PM FindingsMi | | tral ValveThickening and calcification of the mitral valve leaflets. There is mild | | tomoderate insufficiency.Mild mitral annular calcification is present.Aortic | | ValveEvidence of an normally functioning bioprosthetic aortic valve replacement.No | | significant stenosis or insufficiency is noted.Tricuspid ValveModerate tricuspid | | regurgitation suggestive of a mildly elevated rightsystolic pressure of 37-42 | | mmHg.Pulmonic ValveNormal pulmonic valve structure and function. Normal pulmonary valve | | andRVOT flow by color and Doppler flow imaging.Left AtriumThe left atrium is moderately | | dilated.Left VentricleLeft ventricle is normal in size and function. There is | | suboptimalendocardial resolution. Ejection fraction is estimated at 65%.Right | | AtriumMildly enlarged right atrial size.Right VentricleNormal right ventricular | | size.Right ventricle global systolic function is normal.Echodensity is consistent with | | device wire.TAPSE = 2.3 cm.Pericardial EffusionNo evidence of pericardial | | effusion.Pleural EffusionNo evidence of pleural effusion.MiscellaneousIVC is | | normal.Aortic root dimension within normal limits.Valves Mitral Valve Peak E-Wave: 85.56 | | cm/s Tissue Doppler Septal e' Velocity: 12.81 cm/s Lateral e' Velocity: 17.50 | | cm/s Septal E/e' Ratio: Lateral E/e' Ratio:4.89 Aortic Valve Peak | | Velocity: 172 cm/s Mean Gradient: 6.19 mmHg Peak Gradient: 11.83 mmHg | | Tricuspid Valve TR Velocity: 282.33 cm/s LVOT Peak Velocity: 99.24 cm/sStructures Left | | Atrium LA A/P Dimension: 5 cm LA Area: 30.18 cm^2 LA/Aorta:1.7 | | LA Volume: 115.29 ml LA Vol/BSA Index: 48 mL/m^2 LA Major:0.3406 | | Left Ventricle Diastolic Dimension: 4.78 cm Systolic Dimension: 4.4 cm Septum | | Diastolic: 1.09 cm PW Diastolic: 1.05 cm EF Vuqxptrbi60% EF Calculated: 64% Right | | Ventrical TAPSE: 2.3 cm Miscellaneous Aorta Aortic Root: 2.94 cm Ascending Aorta: 3.01 | | cm | |systolic pressure of 37-42 mmHg. | |The left atrium is moderately dilated. | |Compared with patient's prior study of 2018, no significant changes are | |noted. | | | |Signature | | | | Electronically signed by SEVEN RODRIGUEZ MD(Interpreting physician) on | | 10/02/2018 06:20 PM | | | | | |Findings | |Mitral Valve | |Thickening and calcification of the mitral valve leaflets. There is mild to | |moderate insufficiency. | |Mild mitral annular calcification is present. | |Aortic Valve | |Evidence of an normally functioning bioprosthetic aortic valve replacement. | |No significant stenosis or insufficiency is noted. | |Tricuspid Valve | |Moderate tricuspid regurgitation suggestive of a mildly elevated right | |systolic pressure of 37-42 mmHg. | |Pulmonic Valve | |Normal pulmonic valve structure and function. Normal pulmonary valve and | |RVOT flow by color and Doppler flow imaging. | |Left Atrium | |The left atrium is moderately dilated. | |Left Ventricle | |Left ventricle is normal in size and function. There is suboptimal | |endocardial resolution. Ejection fraction is estimated at 65%. | |Right Atrium | |Mildly enlarged right atrial size. | |Right Ventricle | |Normal right ventricular size. | |Right ventricle global systolic function is normal. | |Echodensity is consistent with device wire. | |TAPSE = 2.3 cm. | |Pericardial Effusion | |No evidence of pericardial effusion. | |Pleural Effusion | |No evidence of pleural effusion. | |Miscellaneous | |IVC is normal. | |Aortic root dimension within normal limits. | | | |Valves | | | | Mitral Valve | | | | Peak E-Wave: 85.56 cm/s | | | | Tissue Doppler | | | | Septal e' Velocity: 12.81 cm/s Lateral e' Velocity: 17.50 cm/s | | Septal E/e' Ratio: Lateral E/e' Ratio:4.89 | | | | Aortic Valve | | | | Peak Velocity: 172 cm/s Mean Gradient: 6.19 mmHg | | Peak Gradient: 11.83 mmHg | | | | Tricuspid Valve | | | | TR Velocity: 282.33 cm/s | | | | LVOT | | | | Peak Velocity: 99.24 cm/s | | | |Structures | | | | Left Atrium | | | | LA A/P Dimension: 5 cm LA Area: 30.18 cm^2 | | LA/Aorta:1.7 LA Volume: 115.29 ml | | LA Vol/BSA Index: 48 mL/m^2 | | LA Major:0.3406 | | | | Left Ventricle | | | | Diastolic Dimension: 4.78 cm Systolic Dimension: 4.4 cm | | Septum Diastolic: 1.09 cm | | PW Diastolic: 1.05 cm | | EF Hnyrinyxl00% | | EF Calculated: 64% | | | | Right Ventrical | | | | TAPSE: 2.3 cm | | | | Miscellaneous | | | | Aorta | | | | Aortic Root: 2.94 cm | | Ascending Aorta: 3.01 cm | + + + +---------+ + + | Performing | Address | City/State/Zipcode | Phone Number | | Organization | | | | + +---------+ + + | [facility] | | | | + +---------+ + + documented in this encounter Visit Diagnoses + + | Diagnosis | + + | S/P AVR (aortic valve replacement) Heart valve replaced by other means | + + | Medication management Encounter for other specified aftercare | + + documented in this encounter"
--- OUTSIDE RECORDS SUMMARY | ~2019-10-21 | XMS | Encounter Summary ---
Demographics + + + | Address | [address] | | | [place] [address] | + + + | Home Phone | | + + + | Preferred Language | Unknown | + + + | Marital Status | | + + + | Baptism Affiliation | [id number] | + + + | Race | Unknown | + + + | Ethnic Group | Unknown | + + + Author + + + | Author | [facility] | | | and Jose Enriqueana | + + + | Organization | [facility] | [...] | | | Hao | | [address], [place] | | | | | [address] | | + + + + + | Rickey Bui | ECON | [address] [place], [place] | | | | | [address] | | + + + + + Care Team Providers + +------+ + | Care Durable Medical Equipment Technician Name | Role | Phone | [...] + + | 09/02/ | Refill | JENNIE SIDDIQUI | Joel Moise | Medication Refill | | 2015 | | [facility]OLOG[facility] | MD Conchis [address] [place] [address] | | | | | [facility] [address] | [facility] [address] | | | | | [place] [address] [place] | [place] [address] | | | | | [address] | [phone] | | | | | [phone] | | | +--------+--------+ + + + [...]
--- OUTSIDE RECORDS SUMMARY | ~2019-10-21 | XMS | Encounter Summary ---
Demographics + + + | Address | [address] | | | [place] [address] | + + + | Home Phone | | + + + | Preferred Language | Unknown | + + + | Marital Status | | + + + | Hoahaoism Affiliation | 1009 | + + + | Race | Unknown | + + + | Ethnic Group | Unknown | + + + Author + + + | Author | [facility] | | | and Jose Enriqueana | + + + | Organization | [facility] | | | and Jose Enriqueana | + + + | Address | Unknown | + + + | Phone | Unavailable | + + + Support + + + + + | Name | Relationship | Address | Phone | + + + + + | Sharlene Lagunas | ECON | [address] | | | [place] | | [place], [place] | | | | | [address] | | + + + + + | Rickey Bui | ECON | [address] [place], [place] | | | | | [address] | | + + + + + Care Team Providers + +------+ + | Care Pharmacy Clinical Coordinator Name | Role | Phone | [...] Description | +--------+--------+ + + + | 09/17/ | Refill | JENNIE SIDDIQUI | Joel Moise | Medication Refill | | 2018 | | [facility] | MD [place] [address] [place] [address] | | | | | [facility] [address] | [facility] [address] | | | | | [place] [address] [place] | [place] [address] | | | | | [address] | [phone] | | | | | [phone] | | | +--------+--------+ + + + [...] | | | | | [place] | | | | | | [address] | | | | | | | | +--------+---------+ + + + documented as of this encounter Visit Diagnoses + + | Diagnosis | + + | Hypertension - Primary Unspecified essential hypertension | + + documented in this encounter"
--- OUTSIDE RECORDS SUMMARY | ~2019-10-21 | XMS | Encounter Summary ---
Demographics + + + | Address | [address] | | | [place] [address] | + + + | Home Phone | | + + + | Preferred Language | Unknown | + + + | Marital Status | | + + + | Nondenominational Affiliation | 1009 | + + + | Race | Unknown | + + + | Ethnic Group | Unknown | + + + Author + + + | Author | [facility] | | | and Jose Enriqueana | + + + | Organization | [facility] | | | and Jose Enriqueana | + + + | Address | Unknown | + + + | Phone | Unavailable | + + + Support + + + + + | Name | Relationship | Address | Phone | + + + + + | Sharlene Lagunas | ECON | [address] | | | [place] | | [place], [place] | | | | | [address] | | + + + + + | Rickey Bui | ECON | [address] [place], [place] | | | | | [address] | | + + + + + Care Team Providers + +------+ + | Care Events Traffic Controller Name | Role | Phone | + +------+ + | Luna Larson | PCP | | | PA | | | + +------+ + Reason for Referral Diagnostic/Screening (Routine) + +--------+ + + + + | Status | Reason | Specialty | Diagnoses / | Referred By | Referred To | | | | | Procedures | Contact | Contact | + +--------+ + + + + | Pending | | Radiology | Diagnoses | Jose Maria, | JENNIE | | Review | | | S/P AVR | Joel Balderrama, | [facility] | | | | | (aortic | [address] | | | | | valve | [address] | [address] | | | | | replacement) | [address] | [address] | | | | | Procedures | [place] | [place] | | | | | ECHO | [address] | [address] | | | | | Complete | Phone: | Phone: | | | | | | [phone] | [phone] | | | | | | Fax: | | | | | | | [phone] | | + +--------+ + + + + Encounter Details +--------+ + + + + | Date | Type | Department | Care Team | Description | +--------+ + + + + | 08/20/ | Orders Only | JENNIE SIDDIQUI | Joel Moise | S/P AVR (aortic | | 2019 | | CARDIOLOGY [facility] | MD [address] | valve replacement) | | | | [address], | [address] | (Primary Dx) | | | | [address] [place] | [place] [address] | | | | | [address] | [phone] | | | | | [phone] | | | +--------+ + + + [...] 2020 | Visit | | [address] | | | | | | [place] | | | | | | [address] | | | | | | | | +--------+---------+ + + + + + +--------+ + + | Name | Type | Priori | Associated Diagnoses | Order Schedule | | | | ty | | | + + +--------+ + + | ECHO Complete | Echocardiog | Routin | S/P AVR (aortic | Expected: 07/16/2020 | | | jony | e | valve replacement) | (Approximate), | | | | | | Expires: 08/20/2021 | + + +--------+ + + documented as of this encounter Visit Diagnoses + + | Diagnosis | + + | S/P AVR (aortic valve replacement) - Primary Heart valve replaced by other means | + + documented in this encounter"
--- OUTSIDE RECORDS SUMMARY | ~2019-10-21 | XMS | Encounter Summary ---
Demographics + + + | Address | [address] | | | [place] [address] | + + + | Home Phone | | + + + | Preferred Language | Unknown | + + + | Marital Status | | + + + | Methodist Affiliation | 1009 | + + + | Race | Unknown | + + + | Ethnic Group | Unknown | + + + Author + + + | Author | [facility] | | | and Jose Enriqueana | + + + | Organization | [facility] | | | and [...] | | | [address] | | [place], [place] | | | | | [address] | | + + + + + | Rickey Bui | ECON | [address] [facility] [place] | | | | | [address] | | + + + + + Care Team Providers + +------+ + | Care Weaving Teacher Name | Role | Phone | + +------+ + | Luna Larson | PCP | | | PA | | | + +------+ + Encounter Details +--------+ + + + + | Date | Type | Department | Care Team | Description | +--------+ + + + + | 12/05/ | Abstract | [facility] | Provider, | Dyspnea on exertion; | | 2018 | | SURGERY [address] | [address] | Localized soft | | | | [place], [place] | [address] | tissue swelling; | | | | [address] | [place] [address] | Benign prostatic | | | | [phone] | | hyperplasia, | | | | | | unspecified whether | | | | | | lower urinary tract | | | | | | symptoms present; | | | | | | Diverticulosis of | | | | | | colon; | | | | | | Gastroesophageal | | | | | | reflux disease, | | | | | | esophagitis presence | | | | | | not specified; | | | | | | Gout, unspecified | | | | | | cause, unspecified | | | | | | chronicity, | | | | | | unspecified site; | | | | | | Basal cell carcinoma | | | | | | (BCC), unspecified | | | | | | site; Hypertrophy of | | | | | | breast; | | | | | | Hypogonadism in | | | | | | male; Lymphedema; | | | | | | Organic sleep apnea; | | | | | | Osteoarthritis, | | | | | | unspecified | | | | | | osteoarthritis type, | | | | | | unspecified site; | | | | | | Polyp of colon, | | | | | | unspecified part of | | | | | | colon, unspecified | | | | | | type; Seborrheic | | | | | | dermatitis; Venous | | | | | | insufficiency; | | | | | | Gallbladder disease; | | | | | | Idiopathic | | | | | | peripheral | | | | | | neuropathy; Venous | | | | | | stasis dermatitis of | | | | | | both lower | | | | | | extremities | +--------+ + + + + Social [...] SERVIN | | | | | | [address] | | | | | | | | +--------+---------+ + + + documented as of this encounter Visit Diagnoses + + | Diagnosis | + + | Dyspnea on exertion Other dyspnea and respiratory abnormality | + + | Localized soft tissue swelling Localized superficial swelling, mass, or lump | + + | Benign prostatic hyperplasia, unspecified whether lower urinary tract symptoms present | + + | Diverticulosis of colon Diverticulosis of colon (without mention of hemorrhage) | + + | Gastroesophageal reflux disease, esophagitis presence not specified | + + | Gout, unspecified cause, unspecified chronicity, unspecified site | + + | Basal cell carcinoma (BCC), unspecified site | + + | Hypertrophy of breast | + + | Hypogonadism in male | + + | Lymphedema Other lymphedema | + + | Organic sleep apnea Organic sleep apnea, unspecified | + + | Osteoarthritis, unspecified osteoarthritis type, unspecified site | + + | Polyp of colon, unspecified part of colon, unspecified type | + + | Seborrheic dermatitis Seborrheic dermatitis, unspecified | + + | Venous insufficiency Unspecified venous (peripheral) insufficiency | + + | Gallbladder disease Unspecified disorder of gallbladder | + + | Idiopathic peripheral neuropathy Unspecified hereditary and idiopathic peripheral | | neuropathy | + + | Venous stasis dermatitis of both lower extremities | + + documented in this encounter"
--- OUTSIDE RECORDS SUMMARY | ~2019-10-21 | XMS | Encounter Summary ---
Demographics + + + | Address | [address] | | | [place] [address] | + + + | Home Phone [...] Author | [facility] | | | and Jose Enriqueana | + + + | Organization | [facility] | [...] [address] | | | [place] | | [place], [place] | | | | | [address] | | + + + + + | Rickey Bui | ECON | [address] [place], [place] | | | | | [address] | | + + + + + Care Team Providers + +------+ + | Care Equities Analyst Name | Role | Phone | + +------+ + | Tayo Robles DO | PCP | | + +------+ + Reason for Visit + + + | Reason | Comments | + + + | Appointment | Appt needed | + + + Encounter Details +--------+ + + + + | Date | Type | Department | Care Team | Description | +--------+ + + + + | 05/28/ | Telephone | JENNIE SIDDIQUI | Joel Moise | Appointment (Appt | | 2019 | | [facility] | MD [address] | needed) | | | | [facility] [address] | [address]VE [address] | | | | | [place] [address] [place] | [place] [address] | | | | | [address] | [phone] | | | | | [phone] | | | +--------+ + + + [...] SERVIN | | | | | | [address] | | | | | | | | +--------+---------+ + + + documented as of this encounter Visit Diagnoses Not on filedocumented in this encounter"
--- OUTSIDE RECORDS SUMMARY | ~2019-10-21 | XMS | Encounter Summary ---
Demographics + + + | Address | [address] | | | [place] [address] | + + + | Home Phone | | + + + | Preferred Language | Unknown | + + + | Marital Status | | + + + | Caodaism Affiliation | 1009 | + + + | Race | Unknown | + + + | Ethnic Group | Unknown | + + + Author + + + | Author | [facility] | | | and Jose Enriqueana | + + + | Organization | [facility] | | | and Jose Enriqueana | + + + | Address | Unknown | + + + | Phone | Unavailable | + + + Support + + + + + | Name | Relationship | Address | Phone | + + + + + | Sharlene Henriquez | ECON | [address] | | | [place] | | [address], [place] | | | | | [address] | | + + + + + | Rickey Castaneda | ECON | [address] [place], [place] | | | | | [address] | | + + + + + Care Team Providers + +------+ + | Care Pony Roll Finisher Name | Role | Phone | [...] | | [address] | [place] [address] | | | 2011 | | [place], [place] | [phone] | | | | | [address] | | | | | | [phone] | | | +--------+ + + + [...] 1945 ADMISSION DATE: 02/27/2012 DISCHARGE DATE: 02/28/2012 [id number] / [id number] ADMISSION DIAGNOSIS: Paroxysmal atrial fibrillation and tachybrady syndrome. DISCHARGE DIAGNOSES: 1. Paroxysmal atrial fibrillation and tachybrady syndrome. a. Status post permanent pacema ker implantation. 2. History of hypertension. HOSPITAL COURSE: Mr. Castaneda is a 66-year-old gentleman who was found to have paroxys mal atrial fibrillation and tachybrady syndrome. He underwent permanent pacemaker implantat ion by Dr. Moise without complications. A Medtronic Adapta, serial #[id number] was implan adrián without complications. His wound [...] 150 mg p.o. q 12 hours. 4. [place] Thyroid dose as at home. 5. Toprol-XL 50 mg once daily. 6. Hydrocodone as needed. 7. Digoxin 0.125 mg once daily. 8. Catapres 0.2 mg twice daily. 9. Keflex 500 mg p.o. q.i.d. for four additional doses. 10. Atacand 16 mg once daily. 11. [place]-3 fatty acids once daily. 12. Dilantin 100 mg daily as at home. 13. Delfen 15 mg daily. DARRIUS CASTANEDAAnita Crawford ADM:02/27/12 [id number] 02/28/12 DIS Sean DISCHARGE SUMMARY [id number] [facility] HIEN Adler [facility] MD Antonio Cadena THIS REPORT IS CONFIDENTIAL AND NOT TO BE RELEASED WITHOUT PROPER AUTHORIZATION. [facility] HIEN Moralez MD P A CR/dls #[id number] cc: MD Minnie Maurer ARNP xc: Dr. Tayo Robles Electronically Signed 02/29/12 1412 HIEN Adler Electronically Signed 04/09/12 2244 Joel Moise MD PRABHJOT CASTANEDA ADM:02/27/12 [id number] 02/28/12 DIS Sean DISCHARGE SUMMARY [id number] [facility] HIEN Adler [facility] MD Antonio Cadena THIS REPORT IS CONFIDENTIAL [...] + + +---------+ + + | [place], | CAPS four daily | | 0 [...] SERVIN | | | | | | [address] | | | | | | | [...] + + + | Exam Performed Location: [facility] CHEST | MISCELANIOUS | | TWO VIEW [...] seen previously. | | | S: SQ ([id number]) Signed by: MARK TORRES MD | | + + + + + | Procedure Note | + + | Ariel, Rad Conversion - 03/14/2013 5:19 AM PDT Exam Performed Location: [facility] | | at [facility] TWO VIEWCLINICAL INFORMATION:Post pacer examCOMPARISON:Chest x-ray | [...] mild cardiacenlargement | | seen previously.S: SQ ([id number]) Signed by: MARK TORRES MD | | [...] | | | | | |S: SQ ([id number]) Signed by: MARK TORRES MD | + + + +---------+ + + | Performing | Address | City/State/Zipcode | Phone Number | | Organization | | | | + +---------+ + + | MISCELLANEOUS LAB | | | [phone] | + +---------+ + + | MISCELANIOUS LAB | | | [phone] | + +---------+ + + Protime INR [...] + | JENNIE IGLESIAS | [address] | [place] [address] | | | [facility] | | | | | LABORATORY | [...] + + + | Exam Performed Location: [facility] at [facility] AND | MISCELANIOUS | | LATERAL [...] | | of the exam. S: SQ ([id number]) Signed by: BRADLEY STEPHENSON, | | | MD and C MONE RIVERS DO R5 | | + + + + + | Procedure Note | + + | Ariel, Rad Conversion - 03/14/2013 5:37 AM PDT Exam Performed Location: [facility] | | at [facility] AND LATERAL CHESTCLINICAL INFORMATION:Post pacer exam [...] portions of the exam.S: SQ | | ([id number]) Signed by: BRADLEY STEPHENSON MD and Ananya [...] | | | | | |S: SQ ([id number]) Signed by: BRADLEY STEPHENSON MD and Ananya RIVERS DO R5 | + + + +---------+ + + | Performing | Address | City/State/Zipcode | Phone Number | | Organization | | | | + +---------+ + + | MISCELLANEOUS LAB | | | [phone] | + +---------+ + + | MISCELANIOUS LAB | | | [phone] | + +---------+ + + CBC no [...] + | JENNIE IGLESIAS | [address] | [place] [address] | | | HEART [facility] | | | | [...] + + | Glucose | 100 (H)Comment: Barbadian | 65 - 99 mg/dL | [facility] [...] + + | JENNIE IGLESIAS | [address] | [place] [address] | | | [facility] | | | | | LABORATORY | [...] + + | JENNIE IGLESIAS | [address] | [place] [address] | | | [facility] | | | | | LABORATORY | | | | + + + + + | JENNIE IGLESIAS | | | | | [facility] | | | | | LABORATORY | | | | + + + + + documented in this encounter Visit Diagnoses Not on filedocumented in this encounter"
--- OUTSIDE RECORDS SUMMARY | ~2019-10-21 | XMS | Clinical Summary ---
Demographics + + + | Address | [address] | | | [place] [address] | + + + | Home Phone | | + + + | Preferred Language | Unknown | + + + | Marital Status | | + + + | Caodaism Affiliation | Unknown | + + + | Race | Unknown | + + + | Ethnic Group | Unknown | + + + Author + + + | Author | [facility] (Historical as of | | | 01-05-19) | + + + | Organization | [facility] (Historical as of | | | 01-05-19) [...] [place] | | | | | [address] | | + + + + + Care Team Providers + +------+ + | Care Helpdesk Administrator Name | Role | Phone | + [...] +------+-------+ + | MEDICARE | MEDICA | [id number] | | | [address] | | | RE | | | | [place] [address] | | | IP-OP | | | | | + +--------+ +------+-------+ + | AETNA | AETNA | [id number] | | | | | | - [...] | Self | [birth year] | Home: | [facility] [address] | | | al/Fam | | 1946 | [phone] | [place] | | | [place] | | | [address] | [phone] | + +--------+ +--------+ + +
--- OUTSIDE RECORDS SUMMARY | ~2019-10-21 | XMS | Encounter Summary ---
Demographics + + + | Address | [address] | | | [place] [address] | + + + | Home Phone [...] | Author | [facility] | | | and Jose Enriqueana | + + + | Organization | [facility] | | | and Jose Enriqueana | + + + | Address | Unknown | + + + | Phone | Unavailable | + + + Support + + + + + | Name | Relationship | Address | Phone | + + + + + | Sharlene Lagunas | ECON | [address] | | | [place] | | [place], [place] | | | | | [address] | | + + + + + | Rickey Bui | ECON | [address] [place], [place] | | | | | [address] | | + + + + + Care Team Providers + +------+ + | Care Events Specialist Name | Role | Phone | [...] 08/19/ | Implant | JENNIE SIDDIQUI | Lidia Christianson, | Sinoatrial node | | 2020 | Monitor | [facility] | RN | dysfunction (HCC) | | | | [address] | | (Primary Dx); | | | | [address] [place], [place] | | Cardiac pacemaker in | | | | [address] | | situ | | | | [phone] | | | +--------+ + + + [...] encounter Progress Notes Joel Moise MD - 08/20/2019 11:59 PM PDTIn statement just placed- not correct re t he duration of the VT. I did not note that this were the signals on the A lead - and underly ing was atrial flutter. However, it is felt to be VT based on AV dissociation and is short in duration. Joel Moise MD oel Moise MD - 08/20/2019 11:59 PM PDTLast pacemaker remote reviewed Described as possible NSVT and felt to be true VT 32 beats in patient who immediately befor e is 100% COMMUNITY LIFE DIRECTOR and immediately after 100 % V paced. Joel Moise MD documented in thi s encounter Plan of Treatment +--------+---------+ + + + | Date | Type | Specialty | Care Team | Description | +--------+---------+ + + + | 10/30/ | Office | Sleep Medicine | Rickey Zaragoza PA | | 2019 | Visit | | [address] | | | | | | [place] | | | | | | [address] | | | | | | | [...] At | + + + | Lidia R | [facility] | | ANASTASIYA Christianson 08/18/2019 12:23 PM PATIENT NAME: Prabhjot Lee | | | [place] : 1945: AGE: 73 y.o. Remote | | | Pacemaker Evaluation Report July 03, 2019 Reason for evaluation: | | [...] Data Presenting rhythm is atrial flutter with COMMUNITY LIFE DIRECTOR, 88 | | | bpm. COMMUNITY LIFE DIRECTOR 73%. Heart rate histogram appears appropriate with a | | | small increase in sensor driven rates 90-100 bpm. Battery status: | | | satisfactory. Voltage: 2.78 V. Estimated remaining longevity: 6 years. | | | Lead impedance appears within normal limits.Events noted since | | | 08/15/18: 3 HVR episodes, (2 new) 4 - 40 seconds, V rates 183 - 197 | | | bpm, most recent 06/14/19. Atrial EGM shows sudden onset of fast, | | | regular VS (markers only). VS beats suggest possible 1:1, possibly | | | NSVT. On anticoagulation.Device function appears appropriate. | | | Remote follow-up in 3 months. Supervising and interpreting physician | | | for this remote,Joel Moise MD | | | | | |Settings | | | | | |Mode: VVIR, 70 (130) | | |Ventricular Output: 2.0V @ 0.4ms (adaptive) | | | | | |Data | | | | | |Presenting rhythm is atrial flutter with COMMUNITY LIFE DIRECTOR, 88 bpm. COMMUNITY LIFE DIRECTOR 73%. | | |Heart rate histogram appears appropriate with a small increase in | | |sensor driven rates 90-100 bpm. | | |Battery status: satisfactory. Voltage: 2.78 V. Estimated | | |remaining longevity: 6 years. Lead impedance appears within | | |normal limits. | | |Events noted since 08/15/18: | | | 3 HVR episodes, (2 new) 4 - 40 seconds, V rates 183 - 197 bpm, | | |most recent 06/14/19. Atrial EGM shows sudden onset of fast, | | |regular VS (markers only). VS beats suggest possible 1:1, | | |possibly NSVT. On anticoagulation. | | |Device function [...]
--- OUTSIDE RECORDS SUMMARY | ~2019-10-21 | XMS | Encounter Summary ---
Demographics + + + | Address | [address] | | | [place] [address] | + + + | Home Phone | | + + + | Preferred Language | Unknown | + + + | Marital Status | | + + + | Yazidism Affiliation | 1009 | + + + | Race | Unknown | + + + | Ethnic Group | Unknown | + + + Author + + + | Author | [facility] | | | and Jose Enriqueana | + + + | Organization | [facility] | | [...] [address] | | | [place] | | [place], [place] | | | | | [address] | | + + + + + | Rickey Bui | ECON | [address] [place], [place] | | | | | [address] | | + + + + + Care Team Providers + +------+ + | Care Ore Dryer Name | Role | Phone | + +------+ + | Tayo Robles DO | PCP | | + +------+ + Reason for Visit + + + | Reason | Comments | + + + | Medication | | | Management | | + + + Encounter Details +--------+ + + + + | Date | Type | Department | Care Team | Description | +--------+ + + + + | 05/23/ | Telephone | [facility] | Magdalena Palomino | Medication | | 2019 | | CARDIOLOGY JESSE Baker RN | Management | | | | [address] | | | | | | [place] [address] Olivia SIDDIQUI | | | | | | [place] | | | | | | [address] | | | | | | [phone] | | | +--------+ + + + [...] | | | | | [place] | | | | | | [address] | | | | | | | | +--------+---------+ + + + documented as of this encounter Visit Diagnoses + + | Diagnosis | + + | Atrial fibrillation, unspecified type (HCC) | + + documented in this encounter"
--- OUTSIDE RECORDS SUMMARY | ~2019-10-21 | XMS | Encounter Summary ---
Demographics + + + | Address | [address] | | | [place] [address] | + + + | Home Phone | | + + + | Preferred Language | Unknown | + + + | Marital Status | | + + + | Methodist Affiliation | 1009 | + + + | Race | Unknown | + + + | Ethnic Group | Unknown | + + + Author + + + | Author | [facility] | | | and Jose Enriqueana | + + + | Organization | [facility] | | | and Jose Enriqueana | + + + | Address | Unknown | + + + | Phone | Unavailable | + + + Support + + + + + | Name | Relationship | Address | Phone | + + + + + | Sharlene Lagunas | ECON | [address] | | | [place] | | [address], [place] | | | | | [address] | | + + + + + | Rickey Bui | ECON | [address] [place], [place] | | | | | [address] | | + + + + + Care Team Providers + +------+ + | Care Echocardiography Radiology Technologist Name | Role | Phone | + +------+ + | Tayo Robles DO | PCP | | + +------+ + Reason for Visit Diagnostic/Screening (Routine) +--------+--------+ + + + + | Status | Reason | Specialty | Diagnoses / | Referred By | Referred To | | | | | Procedures | Contact | Contact | +--------+--------+ + + + + | Closed | | Radiology | Diagnoses | Moise, | Wsh Echo | | | | | Bicuspid | Joel Balderrama, | Pshi First Sampler | | | | | aortic valve | MD [address] | [address] [address] | | | | | Procedures | [address] | [address] [place] | | | | | ECHO | [address] | [address] | | | | | Complete | [place] | [place] | | | | | | [address] | [place] | | | | | | Phone: | [phone] | | | | | | [phone] | Phone: | | | | | | Fax: | [phone] | | | | | | [phone] | Fax: | | | | | | | [phone] | +--------+--------+ + + + + Encounter Details +--------+ + + + + | Date | Type | Department | Care Team | Description | +--------+ + + + + | 01/19/ | Hospital | [facility] | Joel Moise | | | 2016 | Encounter | HE[facility] CARDIOV[facility]ULAR | MD [address] | | | | | [facility] | [address] | | | | | JESSE RN ADMISSIONS [address] | [place] [address] | | | | | [address] | [phone] | | | | | [place], [place] | | | | | | [address] | | | | | | [phone] | | | +--------+ + + + [...] + +---------+ + + | cloNIDine | Take 2 tablets by | 360 | 3 | 01/20/20 | | | (CATAPRES) 0.1 mg | mouth 2 times daily. | tablet | | 16 | 7 | | tabletIndications: | May increase to 0.3 | | | | | | Essential | mg BID if elevated | | | | | | hypertension, | BP per Dr. | | | | | | hypertension with | Moise's | | | | | | unspecified goal | instructions. | | | | | + + + +---------+ + + | Coenzyme Q10 (EQL | Take 200 mg by mouth | | 0 | | | | COQ10) 200 MG CAPS | Daily. | | | | 7 | + + + +---------+ + + | digoxin (LANOXIN) | TAKE 1 TABLET DAILY | 90 | 3 | 06/11/19 | | | 250 mcg | | tablet | | 16 | 7 | | tabletIndications: | | | | | | | Atrial fibrillation, | | | | | | | unspecified | | | | | | + + + +---------+ + + | magnesium sulfate | Twice a week. Monday | | 0 | 01/14/20 | | | 500 mg/mL injection | AND | | | 14 | 8 | | | directed | | | | | + + + +---------+ + + | metoprolol | Take 1 tablet by | 90 | 3 | 01/20/20 | | | succinate | mouth Daily. | tablet | | 16 | 7 | | (TOPROL-XL) 50 mg 24 | | | | | | | hr | | | | | | | tabletIndications: | | | | | | | Essential | | | | | | | hypertension, | | | | | | | hypertension with | | | | | | | unspecified goal | | | | | | + + + +---------+ + + | Probiotic Product | Take by mouth. | | 0 | | | | (PROBIOTIC DAILY PO) | | | | | 7 | + [...] + + | UNABLE TO FIND | Med Name:" CYRUS | | 0 | | | | | CELLUTOX BODY OIL " | | | | 7 | | | - per patient | | | | | | | 01/20/16 it is part | | | | | | | of a detox regimen | | | | | + + [...] 10/30/ | Office | Sleep Medicine | [place], Rickey D, PA | | | 2020 | Visit | | [address] | | | | | | [place] | | | | | | [address] | | | | | | | | +--------+---------+ + + + documented as of this encounter Procedures + +--------+ + + + | Procedure Name | Priori | Date/Time | Associated Diagnosis | Comments | | | ty | | | | + +--------+ + + + | ECHO COMPLETE | Routin | 01/20/2016 | 2. Bicuspid | Results for this | | | e | 1:32 PM | aortic valve with | procedure are in the | | | | PDT | dilated aortic root | results section. | | | | | - mild aortic | | | | | | insufficiency - | | | | | | Echocardiogram | | | | | | 09/13/04 reveals peak | | | | | | gradient of 11, | | | | | | calculated valve | | | | | | area of 2.3 cm2, and | | | | | | mildly dilated | | | | | | ascending aort | | + +--------+ + + + | LVEF VALUE | Routin | 01/20/2016 | | Results for this | | | e | | | procedure are in the | | | | | | results section. | + +--------+ + + + documented in this encounter Results LVEF VALUE (01/20/2016) + +-------+ + + + | Component | Value | Ref Range | Performed | Pathologist | | | | | At | Signature | + +-------+ + + + | LVEF-TTE | 55 | | | | | TRANSTHORAC | | | | | | IC ECHO | | | | | + +-------+ + + + documented in this encounter Visit Diagnoses Not on filedocumented in this encounter
--- OUTSIDE RECORDS SUMMARY | ~2019-10-21 | XMS | Encounter Summary ---
Demographics + + + | Address | [address] | | | [place] [address] | + + + | Home Phone | | + + + | Preferred Language | Unknown | + + + | Marital Status | | + + + | Quaker Affiliation | 1009 | + + + | Race | Unknown | + + + | Ethnic Group | Unknown | + + + Author + + + | Author | [facility] | | | and Jose Enriqueana | + + + | Organization | [facility] | | | and Jose Enriqueana | + + + | Address | Unknown | + + + | Phone | Unavailable | + + + Support + + + + + | Name | Relationship | Address | Phone | + + + + + | Sharlene Lagunas | ECON | [address] | | | [address] | | [place], [place] | | | | | [address] | | + + + + + | Rickey Bui | ECON | [address] [place], [place] | | | | | [address] | | + + + + + Care Team Providers + +------+ + | Care Wool Fleece Sorter Name | Role | Phone | + [...] 05/20/ | Implant | [facility] | Kristen Klein, | Sinoatrial node | | 2018 | Monitor | [facility] [place] | RN | dysfunction (HCC) | | | | [address], | | (Primary Dx); | | | | [address] [place] [address] | | Cardiac pacemaker in | | | | [address] | | situ | | | | [phone] | | | +--------+ + + + [...] encounter Progress Notes Joel Moise MD - 05/20/2018 11:59 PM PSTCardio Based on elevated Heart rate on pacer transmissions, will increase beta niko from 50 mg bid to 75 mg bid. Will ask Magdalena Palomino RN to contact the patient Joel Moise MD documented in thi s [...] SERVIN | | | | | | [id number] | | | | | | | | +--------+---------+ + + + documented as of this encounter Procedures + +--------+ + + + | Procedure Name | Priori | Date/Time | Associated Diagnosis | Comments | | | ty | | | | + +--------+ + + + | DEVICE | Routin | 05/20/2018 | Sinoatrial node | Results for this | | INTERROGATION- | e | 11:59 PM | dysfunction (HCC) | procedure are in the | | REMOTE | | PST | Cardiac pacemaker in | results section. | | | | | situ | | + +--------+ + + + documented in this encounter Results Device Interrogation - Remote (05/20/2018 11:59 PM PST) + + + | Narrative | Performed At | + + + | Kristen Baker | [facility] | | ANASTASIYA Klein 05/21/2018 22:47 PATIENT NAME: Prabhjot Jesus | | | [place]ao : 1945: AGE: 72 y.o. Remote | | | Pacemaker Evaluation Report April 05, 2018 Reason for evaluation: | | [...] is atrial | | | fibrillation/flutter with regular PHYSICAL THERAPY TECHNICIAN, ~85 bpm. PHYSICAL THERAPY TECHNICIAN 54.3%. Heart | | | rate histogram appears somewhat broad with ~25% >110 bpm (mostly | | | sensed). Battery status: satisfactory. Voltage: 2.79 V. Estimated | | | remaining longevity: 8 years. Lead impedance appears within normal | | | limits.Events noted since 08/11/17: (seen previously) 2 VHR, 10-46 | | | seconds, both on 12/29/17. EGMs are atrial only showing atrial | | | flutter with intermittent fast VS, possibly periods of 1:1 conduction | | | although no ventricular EGM is available for review.Device function | | | appears appropriate. Remote follow-up in 3 months. Supervising and | | | interpreting physician for this remote,Joel Moise MD | | | | | |Settings | | | | | |Mode: VVIR, 70 (130) | | |Ventricular Output: 2.0V @ 0.4ms (adaptive) | | | | | |Data | | | | | |Presenting rhythm is atrial fibrillation/flutter with regular PHYSICAL THERAPY TECHNICIAN, | | |~85 bpm. PHYSICAL THERAPY TECHNICIAN 54.3%. Heart rate histogram appears somewhat broad | [...]
--- OUTSIDE RECORDS SUMMARY | ~2019-10-21 | XMS | Encounter Summary ---
Demographics + + + | Address | [address] | | | [place] [address] | + + + | Home Phone | | + + + | Preferred Language | Unknown | + + + | Marital Status | | + + + | Yazidism Affiliation | 1009 | + + + | Race | Unknown | + + + | Ethnic Group | Unknown | + + + Author + + + | Author | [facility] | | | and Jose Enriqueana | + + + | Organization | [facility] [...] [address] | | | [place] | | [place], [place] | | | | | [address] | | + + + + + | Rickey Bui | ECON | [address] [place], [place] | | | | | [address] | | + + + + + Care Team Providers + +------+ + | Care Batch Roller Operator Name | Role | Phone | + +------+ + | Tayo Robles DO | JULISSA | | + +------+ + Encounter Details +--------+---------+ + + + | Date | Type | Department | Care Team | Description | +--------+---------+ + + + | 09/05/ | Office | [facility] | Augusto Kunz | Sinoatrial node | | 2017 | Visit | [facility] | MD [address] | dysfunction ([facility]) DO | | | | [address] | [address] | NOT DELETE. | | | | [address] [place] | [place] [address] | (Primary Dx); | | | | [address] | [phone] | Pacemaker - | | | | [phone] | | Medtronic - [id number] | | | | | | Adapta - Implanted | | | | | | 02/27/2012 DO NOT | | | | | | RESOLVE; Atrial | | | | | | fibrillation, | | | | | | unspecified type | | | | | | ([facility]); 2. Bicuspid | | | | | | aortic valve with | | | | | | dilated aortic root | | | | | | - mild [...] + + + | Blood Pressure | 122/66 | 09/05/2016 1:38 PM | left | | | | PDT | | + + + + + | Pulse | 83 | 09/05/2016 1:38 PM | | | [...] Weight | 103 kg (227 lb) | 09/05/2016 1:38 PM | | | | | PDT | | + + + + + | Height | 193 cm (6' 4") | 09/05/2016 1:38 PM | | | | | PDT | | + + + + + | Body Mass Index | 27.63 | 09/05/2016 1:38 PM | | | | | PDT | | + + + + + documented in this encounter Patient Instructions Patient Instructions Augusto Kunz MD - 09/05/2016 2:04 PM PDTIncrease Toprol-XL fr om 50 mg daily to 75 mg daily 50 mg 1-1/2 tablets at once in the morning to better control the Heart rate We will look at pacemaker heart rate response about a month from now to 2 months from now a nd see your response to this adjustment in medication Thank you for the wonderful Bible. Continue present meds and see me in 6 months documented in this encounter Progress Notes Magdalena Franklin - 09/05/2016 8:14 AM PDT PATIENT NAME: Prabhjot Bui : 1945: AGE: 70 y.o. Date of service: 09/05/2016 PRIMARY CARE: Tayo Robles DO CHIEF COMPLAINT: F/u a fib Outline of Cardiac Problems that were considered on 09/05/2016 to make treatment decisions 1. Sinoatrial node [...] MR, moderate TR 29-34 mmHg 4. Hypertension , HISTORY OF PRESENT ILLNESS 70 y.o. year old male seen in follow up for the problems listed below. He was last seen in the office by me on 01/20/16 with complaints of increasing exertional fatigue. His Toprol XL was decreased to 50 mg daily from BID in result. Presently, the patient reports that he is d oing well from a cardiac standpoint with complaints of continued fatigue, but he attributes this to his age. Patient denies exertional or resting chest pain, shortness of breath, PND, and orthopnea. He was able to shovel his driveway this winter without exertional limitations . CURRENT ASSESSMENT BY PROBLEM LIST 1. Sinoatrial node dysfunction (HCC) - V-pacing 45%; therefore, persists. 2. Pacemaker - Medtronic - [id number] Adapta - Implanted 02/27/2012 - Function is appropriate; 10 years of battery life remaining. 3. Atrial fibrillation, unspecified type (HCC) - Rate controlled and anticoagulated. Rate r esponse shifted slightly to right. 4. Bicuspid aortic valve with dilated aortic root - Valve replaced and functioning well on echo of 12/2015. 5. Hypertension - Blood pressure controlled. . Plan: 1. Increase Toprol-XL from 50 mg to 75 mg daily. Recheck heart rate response in 1-2 months related to atrial fibrillation control 2. Continue other present medications 3. Follow up with me in 6 months FOLLOWUP Return in about 6 months (around 03/07/2017) for chetna garcia/marcos YI. MEDICATION ADJUSTMENTS New Prescriptions No medications on file These Medications Have Changed Start Taking Instead of metoprolol succinate (TOPROL-XL) 50 mg 24 hr tablet metoprolol succinate (TOPROL-XL) 50 mg 24 hr tablet Dosage: Take 1.5 tablets by mouth Daily. - Oral Dosage: Take 1 tablet by mouth Daily. - Oral Reason for Change: Dose adjustment Medications Discontinued During This Encounter Medication Reason Coenzyme Q10 (EQL COQ10) 200 MG CAPS Error UNCODED MEDICATION Error UNABLE TO FIND Error Probiotic Product (PROBIOTIC DAILY PO) Error metoprolol succinate (TOPROL-XL) 50 mg 24 hr tablet Dose adjustment NEW ORDERS No orders of the defined types were placed in this encounter. . MEDICAL, SURGICAL, AND PERSONAL HISTORY Past Medical History Diagnosis Date Paroxysmal atrial fibrillation (HCC) Last cardioversion 12/26/02. Pulmonary vein isolation carried out at [facility] on 09/01/01. Aortic insufficiency and aortic stenosis [...] FIB W/ACTIVITY Atrial fibrillation (HCC) DR AUGUSTO KUNZ Pacemaker MEDTRONIC Thyroid disease HYPOTHYROID Sleep apnea [...] SARAVIA; Laterality: N/A; Surgeon: Ty Arzola; Location: [facility] Hip joint replacement Left 05/17/15 [...] CURRENT MEDICATIONS Outpatient Encounter Prescriptions as of 09/05/2016 Medication Sig Dispense Refill anastrozole (ARIMIDEX) 1 mg tablet Take 0.25 tablets by mouth every 7 days. MONDAYS Apoaequorin (PREVAGEN PO) Take by mouth Daily. ARMOUR THYROID 15 MG tablet Take 1 tablet by mouth every morning. With 60 mg tab 3 Cholecalciferol (CVS VITAMIN D) 2000 UNITS CAPS Take 5,000 Units by mouth Daily. cloNIDine (CATAPRES) 0.2 MG tablet TAKE 1 TABLET TWICE A DAY *ACTAVIS MFR* 180 tablet 0 Coenzyme Q10 (CO Q-10) 100 MG CAPS Take 1 capsule by mouth Daily. Also has S-Ijyhdd-Udy teine 250 mg & Pyrroloquinoline PQQ 10 mg [DISCONTINUED] Coenzyme Q10 (EQL COQ10) 200 MG CAPS Take 200 mg by mouth Daily. DHEA 25 MG CAPS Take 25 mg by mouth Daily. digoxin (LANOXIN) 250 mcg tablet TAKE 1 TABLET DAILY 90 tablet 3 fish oil 1,000 mg capsule Take 1,000 mg by mouth Daily. Garlic 1000 MG CAPS Take 1,000 mg by mouth Daily. L-Methylfolate 15 MG TABS Take 7.5 mg by mouth 2 times daily. magnesium sulfate 500 mg/mL injection Twice a week. Monday AND MONDAYAs directed metoprolol succinate (TOPROL-XL) 50 mg 24 hr tablet Take 1.5 tablets by mouth Daily. 90 tablet 3 [DISCONTINUED] metoprolol succinate (TOPROL-XL) 50 mg 24 hr tablet Take 1 tablet by Daily. 90 tablet 3 MINERAL SURVEYOR THYROID 30 MG tablet Take 1 tablet by mouth nightly. 4 Potassium Gluconate 595 MG CAPS Take 1 capsule by mouth Daily. PROAIR HFA 108 (90 Base) MCG/ACT inhaler Inhale 2 puffs into the lungs as needed. 1 [DISCONTINUED] Probiotic Product (PROBIOTIC DAILY PO) Take by mouth. SYNTHROID 50 MCG tablet Take 1 tablet by mouth Daily. tamsulosin (FLOMAX) 0.4 mg CAPS Take 0.4 mg by mouth daily (after breakfast). TAURINE PO Take 1,500 mg by mouth 2 times daily. Six caps daily; thyroid (ARMOUR THYROID) 60 MG tablet Take 60 mg by mouth. With 15 mg tab UNABLE TO FIND Daily. Med Name: Spirolina [DISCONTINUED] UNABLE TO FIND Med Name:" ELEMIS CELLUTOX BODY OIL " - per patient 01/19 it is part of a detox regimen [DISCONTINUED] UNCODED MEDICATION Diagnosis: Obstructive Sleep Apnea ICD-9: 327.23 Length of Need: 99 Months 1 Device 0 warfarin (COUMADIN) 5 mg tablet Take by mouth See Admin Instructions. As directed by Dylan TA No facility-administered encounter medications on file as of 09/05/2016. ALLERGIES Allergies Allergen Reactions Flecainide Other (See Comments) AFTER 1ST ABLATION, HAD LEG SWELLING, INCREASED HEART RATE Amoxicillin Rash ROS 12 point ROS was completed and is negative except for: fatigue, hearing loss, palpitations, ankle edema, wheezing, frequency, joint aches PHYSICAL EXAM BP 122/66 mmHg | Pulse 83 | Ht 1.93 m (6' 4") | Wt 102.967 kg (227 lb) | BMI 27.64 kg/m2 Body mass index is 27.64 kg/(m^2). GENERAL: Pleasant appearing in no apparent distress HEENT: Conjunctivae and lids are normal in appearance. Pharynx: benign Eyes: Extraocular movements intact. NECK: Supple, JVD 2 cm above sternal angle, Carotids are 2+ and brisk bilaterally without b ruits. LUNGS: Full expansion. Clear to auscultation. CHEST: Pacemaker site well healed left chest. CARDIAC: PMI is non-displaced. Irregular rate and rhythm with S1 normal, S2 normal. 1-2/6 systolic apical murmur. No rubs or gallops. Blood pressures are equal in upper extremities. ABDOMEN: Soft, non-tender, nondistended with normal, active bowel sounds. Normal abdominal pulsation without bruit. EXTREMITIES: No clubbing, cyanosis. 2+ edema. PULSES: PT 2+ bilaterally NEUROLOGIC: Non-focal. Patient is oriented to time, place, and person. Normal affect. SKIN: No rashes or skin breakdown. No bruising. MUSCULOSKELETAL: Back - no CVA or paravertebral tenderness. EKG 01/20/16: V-paced with underlying atrial fibrillation at 75 bpm Pacemaker Analysis: 09/06/2016 See fuel verification technician report. Thresholds are good. Outputs are appropriate. V-paced 46% Battery life: 10 years Afib episodes: Underlying atrial fibrillation Heart rate histogram is slightly shifted to right. Programming changes: None . LABS Lab Results Component Value Date WBC [...] please do not hesitate to contact me. By signing my name below, I, Magdalena Franklin, attest that this documentation has been prepare d under the direction and in the presence of Augusto Kunz MD. Electronically Signed: Rio Hines. 09/06/2016. 1:09. Signed by: Augusto Kunz MD 09/06/2016, 1:09 Patient Care Team: Tayo Robles DO as PCP - General (Family Medicine - Sports Medicine) KENNETH Givens (Physician Tenant Coordinator) Augusto Kunz MD as Physician (Cardiology) documented in thi s encounter Plan of Treatment +--------+---------+ + + + | Date | Type | Specialty | Care Team | Description | +--------+---------+ + + + | 10/30/ | Office | Sleep Medicine | Rickey Zaragoza PA | | | 2020 | Visit | | [address] | | | | | | [place] | | | | | | [address] | | | | | | | [...] in situ | + + | Atrial fibrillation, unspecified type (HCC) | + + | 2. Bicuspid aortic [...]
--- OUTSIDE RECORDS SUMMARY | ~2019-10-21 | XMS | Encounter Summary ---
Demographics + + + | Address | [address] | | | [place] [address] | + + + | Home Phone | | + + + | Preferred Language | Unknown | + + + | Marital Status | | + + + | Jainism Affiliation | 1009 | + + + | Race | Unknown | + + + | Ethnic Group | Unknown | + + + Author + + + | Author | [facility] | | | and Jose Enriqueana | + + + | Organization | [facility] | | | and Jose Enriqueana | + + + | Address | Unknown | + + + | Phone | Unavailable | + + + Support + + + + + | Name | Relationship | Address | Phone | + + + + + | Sharlene Lagunas | ECON | [address] | | | [address] | | [address], [place] | | | | | [address] | | + + + + + | Rickey Bui | ECON | [address] [place], [place] | | | | | [address] | | + + + + + Care Team Providers + +------+ + | Care Notched Blade Loader Name | Role | Phone | + +------+ + | Tayo Robles DO | PCP | | + +------+ + Reason for Visit + + + | Reason | Comments | + + + | Results, Imaging | Chest x-ray results | + + + Encounter Details +--------+ + + + + | Date | Type | Department | Care Team | Description | +--------+ + + + + | 12/10/ | Telephone | [facility] | Joel Moise | Results, Imaging | | 2013 | | [facility] | MD [address] | (Chest x-ray | | | | [address] | [address] | results) | | | | [place] [address] [address] [place] | [place] [address] | | | | | [address] | [phone] | | | | | [phone] | | | +--------+ + + + [...] 2020 | Visit | | [address] | | | | | | [place] | | | | | | [id number] | | | | | | | | +--------+---------+ + + + documented as of this encounter Visit Diagnoses Not on filedocumented in this encounter"
--- OUTSIDE RECORDS SUMMARY | ~2019-10-21 | XMS | Encounter Summary ---
Demographics + + + | Address | [address] | | | [place] [address] | + + + | Home Phone | | + + + | Preferred Language | Unknown | + + + | Marital Status | | + + + | Anglican Affiliation | 1009 | + + + | Race | Unknown | + + + | Ethnic Group | Unknown | + + + Author + + + | Author | [facility] | | | and Jose Enriqueana | + + + | Organization | [facility] | | | and [...] [address] | | [address] [place] | | | | | [address] | | + + + + + | Rickey Bui | ECON | [address] [place], [place] | | | | | [address] | | + + + + + Care Team Providers + +------+ + | Care Police Crime Scene Technician Name | Role | Phone | [...] Check | | 2019 | | [facility]ARD[facility]Y [facility] | [address] | (Remote) (Reminder) | | | | [facility] [address] | [address] | | | | | [address] [place] | [place] [address] | | | | | [address] | [phone] | | | | | [phone] | | | +--------+ + + + [...] SERVIN | | | | | | [id number] | | | | | | | | +--------+---------+ + + + documented as of this encounter Visit Diagnoses Not on filedocumented in this encounter"
--- OUTSIDE RECORDS SUMMARY | ~2019-10-21 | XMS | Encounter Summary ---
Demographics + + + | Address | [address] | | | [place] [address] | + + + | Home Phone [...] + | Author | [facility] | | | and Jose Enriqueana | + + + | Organization | [facility] | [...] [address] | | | [place] | | [address], [place] | | | | | [address] | | + + + + + | Rickey Bui | ECON | [address] [place], [place] | | | | | [address] | | + + + + + Care Team Providers + +------+ + | Care Motor Route Carrier Name | Role | Phone | + [...] | +--------+ + + + + | 06/03/ | Procedure | JENNIE SIDDIQUI | | Fitting and | | 2015 | visit | [facility] | | adjustment of | | | | HI[address] | | cardiac pacemaker | | | | [address] [place], [place] | | (Primary Dx); | | | | [address] | | Sinoatrial node | | | | [phone] | | dysfunction (HCC) | +--------+ + [...] 2019 | Visit | | [address] | | | | | | [place] | | | | | | [address] | | | | | | | | +--------+---------+ + + + documented as of this encounter Procedures + +--------+ + + + | Procedure Name | Priori | Date/Time | Associated Diagnosis | Comments | | | ty | | | | + +--------+ + + + | DEVICE INTERROGATION | Routin | 06/03/2015 | Fitting and | Results for this | | | e | 10:55 AM | adjustment of | procedure are in the | | | | PST | cardiac pacemaker | results section. | | | | | Sinoatrial node | | | | | | dysfunction (HCC) | | + +--------+ + + + documented in this encounter Results Device Interrogation (06/03/2015 10:55 AM PST) + + + | Narrative | Performed At | + + + | Alex Jensen, | | | branch examiner 06/03/2015 10:55 PATIENT NAME: Prabhjot Bui | | | : 1945: AGE: 69 y.o. Pacemaker Evaluation | | | Report June 03, 2015 Reason for evaluation: routineIndication for | | | pacemaker: ICD-10-CM ICD-9-CM 1. Fitting and adjustment of | | | cardiac pacemaker Z45.018 V53.31 Device Interrogation 2. Sinoatrial | | | node dysfunction (HCC) I49.5 427.81 Device Interrogation Patient was | | | [...] | and interpreting provider for this device check,Dr. Joel Smith. | | | MD Jose Maria | | | | | |Patient was [...] provider for this device check, | | |Dr. Joel Moise MD | | + + + documented in this encounter Visit Diagnoses + + | Diagnosis | + + | Fitting and adjustment of cardiac pacemaker - Primary | + + | Sinoatrial node dysfunction (HCC) Sinoatrial node dysfunction | + + documented in this encounter"
--- OUTSIDE RECORDS SUMMARY | ~2019-10-21 | XMS | Encounter Summary ---
Demographics + + + | Address | [address] | | | [place] [address] | + + + | Home Phone | | + + + | Preferred Language | Unknown | + + + | Marital Status | | + + + | Samaritan Affiliation | 1009 | + + + | Race | Unknown | + + + | Ethnic Group | Unknown | + + + Author + + + | Author | [facility] | | | and Jose Enriqueana | + + + | Organization | [facility] | | | and Jose Enriqueana | + + + | Address | Unknown | + + + | Phone | Unavailable | + + + Support + + + + + | Name | Relationship | Address | Phone | + + + + + | Sharlene Lagunas | ECON | [address] | | | [place] | | [place] | | | | | [address] | | + + + + + | Rickey Bui | ECON | [address] [place], [place] | | | | | [address] | | + + + + + Care Team Providers + +------+ + | Care Track Car Operator Name | Role | Phone | [...] | +--------+ + + + + | 04/05/ | Telephone | JENNIE SIDDIQUI | Debbie Jung, | Device Check | | 2016 | | [facility] | Felt Hat Flanging Operator | (Remote) | | | | [address] | | | | | | [place] [address] [place] | | | | | | [address] | | | | | | [phone] | | | +--------+ + + + [...]
--- OUTSIDE RECORDS SUMMARY | ~2019-10-21 | XMS | Encounter Summary ---
Demographics + + + | Address | [address] | | | [place] [address] | + + + | Home Phone | | + + + | Preferred Language | Unknown | + + + | Marital Status | | + + + | Amish Affiliation | 1009 | + + + | Race | Unknown | + + + | Ethnic Group | Unknown | + + + Author + + + | Author | [facility] | | | and Jose Enriqueana | + + + | Organization | [facility] | | [...] [address] | | | [place] | | [address], [place] | | | | | [address] | | + + + + + | Rickey Bui | ECON | [address] [place], [place] | | | | | [address] | | + + + + + Care Team Providers + +------+ + | Care Cigar Inspector Name | Role | Phone | [...] Description | +--------+--------+ + + + | 06/11/ | Refill | JENNIE SIDDIQUI | Joel Moise | Medication Refill | | 2016 | | CARDIOLOGY JAIME Balderrama MD [address] [place] [address] | | | | | [address] [facility] | [facility] [address] | | | | | [address]AKIR[address] | [place] [address] | | | | | [address] | [phone] | | | | | [phone] | | | +--------+--------+ + + + [...] SERV[place] | | | | | | [id number] | | | | | | | | +--------+---------+ + + + documented as of this encounter Visit Diagnoses + + | Diagnosis | + + | Atrial flutter, unspecified - Primary | + + documented in this encounter"
--- OUTSIDE RECORDS SUMMARY | ~2019-10-21 | XMS | Encounter Summary ---
Demographics + + + | Address | [address] | | | [place] [address] | + + + | Home Phone [...] | Author | [facility] | | | and Jose Enriqueana | + + + | Organization | [facility] | [...] [address] | | | [place] | | [address], [place] | | | | | [address] | | + + + + + | Rickey Bui | ECON | [address] [place], [place] | | | | | [address] | | + + + + + Care Team Providers + +------+ + | Care Manager Advanced Name | Role | Phone | + +------+ + | Tayo Robles DO | PCP | | + +------+ + Reason for Visit + + + | Reason | Comments | + + + | Atrial Fibrillation | Per HRG for a-fib ablation | + + + Encounter Details +--------+---------+ + + + | Date | Type | Department | Care Team | Description | +--------+---------+ + + + | 02/11/ | Office | JENNIE SIDDIQUI | Rickey Galvan MD | Atrial fibrillation | | 2013 | Visit | [facility] | [address] | ([facility]) (Primary Dx); | | | | [address] | [address] [place], | Atrial | | | | [place] [address] [place] | [place] [address] | fibrillation/atrial | | | | [address] | [phone] | flutter | | | | [phone] | | | +--------+---------+ + + + [...] + + + | Blood Pressure | 114/70 | 02/11/2014 2:31 PM | left | | | | PDT | | + + + + + | Pulse | 68 | 02/11/2014 2:31 PM | | | | | PDT [...] + + + + | Weight | 109.8 kg (242 lb) | 02/11/2014 2:31 PM | | | | | PDT | | + + + + + | Height | 195.6 cm (6' 5") | 02/11/2014 2:31 PM | | | | | PDT | | + + + + + | Body Mass Index | 28.7 | 02/11/2014 2:31 PM | | | | | PDT | | + + + + + documented in this encounter Progress Notes Rickey Galvan MD - 02/11/2014 5:48 PM PDT [facility] [address] [place] [address] Patient Name: Prabhjot Bui Date: 1945 Date of Service: 02/11/2014 Rickey Galvan MD New Patient Visit CHIEF COMPLAINT: Chief Complaint Patient presents with Atrial Fibrillation Per HRG for a-fib ablation CURRENT ASSESSMENT AND PLAN Atrial fibrillation/atrial flutter I reviewed the patient's remote monitoring strips which suggest this is more atrial flutter that he is having. We discussed both atrial flutter and atrial fibrillation in [facility]. I karan diagrams answered the patient's questions. I answered the patient's 's quest ions. I feel that it is likely that he has a flutter circuit which may be atypical from his prior ablation procedures and surgery. We discussed the different options including contin ued medical management. I also described the ablation to him in detail. I described the ri sk of the procedure of 1-2% chance of complication. I explained to him that the success rat e would depend on where the flutter circuit was coming from now stable the flutter circuit w as. After a long discussion, the patient felt that he would like to think about this a tate le bit longer. In the meantime, he will remain anticoagulated. HISTORY OF PRESENT ILLNESS 68 y.o. year old male with a past medical history of atrial fibrillation. Approximately 11 years ago, the patient underwent an ablation procedure in [place] by Dr. Camilo. I do no t have the details from the ablation procedure. The patient states that lasted 10 hours and he had some complications following. On amiodarone, the patient remained in sinus rhythm f or quite a number of years. However, he then had recurrence of atrial fibrillation. The alice jones needed to have aortic valve surgery performed and at the time of his aortic valve surg sonu underwent a right and left atrial cryo and radiofrequency energy Maze procedure. He rem ained in sinus rhythm for only a couple of months. The patient was placed back on amiodaron e which helped for a brief while. More recently, the patient has had recurrence of his atrial arrhythmia and it has become pe rsistent. The amiodarone is no longer helping. The patient states his symptoms include fat igue and dyspnea on exertion. He denies palpitations. He does have a pacemaker in place fo r sinus node dysfunction. The patient has had his left atrial appendage and right atrial ap pendage ligated during his surgery. He has a history of sleep apnea and is on CPAP. Second onelia to his ongoing symptoms, the patient is referred today for evaluation and to discuss dif ferent options. I have reviewed the notes from Dr. Moise, his operative notes, and his pacemaker interro gations. In reviewing his pacemaker interrogations, it appears that this may be atrial flut ter. Patient Active Problem List Diagnosis Atrial fibrillation/atrial flutter OBSTRUCTIVE SLEEP APNEA Cough due to bronchospasm Pacemaker - Medtronic - ADDRL1 Adapta - Implanted 02/27/2012 DO NOT RESOLVE Fatigue Status post aortic valve replacement Hypertension Hyperthyroidism 2. Bicuspid aortic valve with dilated aortic root - mild aortic insufficiency - Echoca rdiogram 09/13/04 reveals peak gradient of 11, calculated valve area of 2.3 cm2, and mildly d ilated ascending aort Hx of amiodarone therapy Edema Sinoatrial node dysfunction DO NOT DELETE. PAST MEDICAL HISTORY Past Medical History Diagnosis Date Paroxysmal atrial fibrillation (HCC) Last cardioversion 12/26/02. Pulmonary vein isolation carried out at the [facility] on 09/01/01. Aortic insufficiency and aortic stenosis Hypertension Labile hypertension. Blood pressure 194/120 approximately 06/10/05. Diverticular disease Colon polyp 1989 Aortic root dilation (HCC) Dilated aortic root - stable on echocardiogram 06/24/05 - 4.5 cm. - 4.8 cm previously: Aort ic root 4.5 x 4.7 cm echocardiogram 10/17/06. Elevated bilirubin Leg swelling Intermittent right leg swelling on Flecainide. Phlebitis Phlebitis - right leg with superficial enlargement of superficial veins over the right th igh, improved at office visit 01/17/06. History of echocardiogram Bicuspid aortic valve - peak gradient 11, mean gradient 6 - echocardiogram 10/17/06. History of biopsy Lump on breast was biopsied in 04/2009 and was benign. PAST SURGICAL HISTORY (INCLUDING PROCEDURES) Past Surgical History Procedure Date Cardioversion 06/19/00,11/24/00,07/25/01,10/18/01,12/26/02,12/02/04 Atrial ablation surgery Inguinal hernia repair Wrist surgery left Cholecystectomy Aortic root replacement and reimplantation of coronary arteries 05/28/08 Dr. Kelsey Ascending aorta replacement 05/28/08 Dr. Kelsey Cardiac pacemaker placement 02/27/12 Cardioversion 03/07/13 Shoulder surgery 05/28/13 right FAMILY HISTORY Family History Problem Relation Age of Onset Hypertension Sister Stroke Sister 62 Hypertension Mother Atrial Fibrillation Mother Also had a bad valve Colon cancer Brother , colon cancer SOCIAL HISTORY History Social History Marital Status: Spouse Name: Ryann Number of Children: 3 Years of Education: N/A Occupational History retired Social History Main Topics Smoking status: Never Smoker Smokeless tobacco: Never Used Comment: denies tobacco use Alcohol Use: No Comment: denies alcohol use Drug Use: No Comment: denies illicit drug use Sexually Active: Not on file Other Topics Concern Not on file Social History Narrative He is to Ryann with three children. He is retired from the [employer] He does not smoke or use smokeless tobacco and does not drink alcohol. Denies illici t drug use. He drinks decaffeinated coffee and occasional hot chocolate. No regular exercise at this time.FAMILY HISTORY: Negative for premature atherosclerotic heart disease. His sist er had a small stroke at about age 62. She also had hypertension. His mother had a bad valve , hypertension, and atrial fibrillation. His brother from colon cancer. CURRENT MEDICATIONS Current Outpatient Prescriptions Medication Sig anastrozole (ARIMIDEX) 1 mg tablet Take 1 tablet by mouth Daily. CHELATED MAGNESIUM 100 MG TABS Take 100 mg by mouth Daily. Cholecalciferol (CVS VITAMIN D) 2000 UNITS CAPS 6,000 Units Daily. clonidine (CATAPRES) 0.2 MG tablet TAKE 1 TABLET TWICE A DAY Coenzyme Q10 (COQ10) 50 MG CAPS Take 50 mg by mouth Daily. Cyanocobalamin 1000 MCG/ML KIT Inject as directed Every 3 days. DHEA 25 MG CAPS Take 25 mg by mouth Daily. DIGOX 250 MCG tablet TAKE 1 TABLET DAILY fish oil 1,000 mg capsule Take 1,000 mg by mouth Daily. Garlic 1000 MG CAPS Take 500 mg by mouth Daily. L-Methylfolate 15 MG TABS Take 1 tablet by mouth Daily. magnesium sulfate 500 mg/mL injection As directed Melatonin-Pyridoxine (MELATIN) 3-1 MG TABS Take 0.5 mg by mouth nightly. metoprolol succinate (TOPROL-XL) 50 mg 24 hr tablet Take 50 mg by mouth 2 times daily. NADH Disodium POWD by Does not apply route Daily. non-formulary medication prevegan 10 mg 1 capsule daily Saw Julian, Serenoa repens, (SAW PALMETTO PO) CAPS four daily SYNTHROID 50 MCG tablet Take 1 tablet [...] Instructions. As directed by Dylan TA ALLERGIES Allergies Allergen Reactions Amoxicillin Rash ROS 14 point ROS was completed. Pertinent positives include fatigue, itching, hearing loss, le g swelling, shortness of breath, dysuria, frequency, dizziness, insomnia, memory loss. PHYSICAL EXAM BP 114/70 | Pulse 68 | Ht 1.956 m (6' 5") | Wt 109.77 kg (242 lb) | BMI 28.69 kg/m2 Body mass index is 28.69 kg/(m^2). GENERAL: Pleasant, talkative in no apparent distress HEENT: The oropharynx and conjunctivae are clear. Mucous membranes moist. EOMI. NECK: Supple. Carotids are 2+ and brisk bilaterally without bruits. No JVD. CHEST: Good inspiratory effort with no crackles, ronchi, or wheezes. CARDIAC: No lifts/heaves. PMI is discrete and non-displaced. Normal S1 and S2. No murmur s, rubs or gallops. Regular rhythm. ABDOMEN: Soft, non-tender, nondistended with normal, active bowel sounds. Normal abdominal pulsation without bruit. EXTREMITIES: No clubbing, cyanosis, or edema. PULSES: Right: radial 2+, femoral 2+ DP 2+, PT 2+ Left: radial 2+, femoral 2+ DP 2+, PT 2+ NEUROLOGIC: Alert and oriented. Appropriate mood and affect. SKIN: No rashes or skin breakdown. MUSCULOSKELETAL: normal ambulation. No significant kyphosis or scoliosis. OBJECTIVE DATA Lab Results Component Value Date WBC 5.9 02/27/2012 HGB 15.5 08/23/2012 HCT 47.2 08/23/2012 PLT 171 08/23/2012 CHOL 124 10/15/2010 TRIG 49 10/15/2010 HDL 44 10/15/2010 ALT 26 03/07/2013 AST 27 03/07/2013 NA 137 03/07/2013 K 4.5 03/07/2013 CL 105 03/07/2013 CREA 1.02 03/07/2013 BUN 13 03/07/2013 CO2 27 03/07/2013 TSH 0.07* 03/07/2013 INR 3.0* 03/07/2013 EKG: Underlying atrial flutter with a ventricular paced rhythm at 78 beats per minute. Note: This report was partially dictated with the use of voice recognition software. It may contain inadvertent spelling or grammatical errors which were not detected in the editing p Boloco[employer]. Should you have any questions or concerns, please do not hesitate to contact me dire ctly. Thank you for allowing me to participate in the care of this patient. If you have any ques tions, please do not hesitate to contact me. Signed by: Rickey Galvan MD 02/11/2014, 17:48 documented in this enco unter Plan of [...] SERVIN | | | | | | [address] | | | | | | | | +--------+---------+ + + + documented as of this encounter Procedures + +--------+ + + + | Procedure Name | Priori | Date/Time | Associated Diagnosis | Comments | | | ty | | | | + +--------+ + + + | ECG 12 LEAD - PB | Routin | 02/11/2014 | Atrial | Results for this | | | e | 2:14 PM | fibrillation (HCC) | procedure are in the | | | | PDT | | results section. | + +--------+ + + + documented in this encounter Results ECG 12 lead (02/11/2014 2:14 PM PDT) + + + | Narrative | Performed At | + + + | Ty Jessica CMA 02/11/2014 14:14 See scanned tracing for | | | the provider's interpretation of EKG. | | + + + + + | Procedure Note | + + | [place] Ty Mally, CARRY IN WORKER - 02/11/2014 2:14 PM PDT See scanned tracing for the | | provider's interpretation of EKG. | + + documented in this encounter Visit Diagnoses + + | Diagnosis | + + | Atrial fibrillation/atrial flutter - Primary Atrial fibrillation | + + documented in this encounter
--- OUTSIDE RECORDS SUMMARY | ~2019-10-21 | XMS | Encounter Summary ---
Demographics + + + | Address | [address] | | | [place] [address] | + + + | Home Phone | | + + + | Preferred Language | Unknown | + + + | Marital Status | | + + + | Voodoo Affiliation | 1009 | + + + | Race | Unknown | + + + | Ethnic Group | Unknown | + + + Author + + + | Author | [facility] | | | and Jose Enriqueana | + + + | Organization | [facility] | | | and Jose Enriqueana | + + + | Address | Unknown | + + + | Phone | Unavailable | + + + Support + + + + + | Name | Relationship | Address | Phone | + + + + + | Sharlene Lagunas | ECON | [address] | | | [place] | | [address], [place] | | | | | [address] | | + + + + + | Rickey Bui | ECON | [address] [place], [place] | | | | | [address] | | + + + + + Care Team Providers + +------+ + | Care Harness Inspector Name | Role | Phone | [...] SR | | | | | [address] [facility] | | | | | | [place], [place] | | | | | | [address] | | | | | | [phone] | | | +--------+ + + + [...] SERVIN | | | | | | [id number] | | | | | | | | +--------+---------+ + + + documented as of this encounter Visit Diagnoses Not on filedocumented in this encounter
--- OUTSIDE RECORDS SUMMARY | ~2019-10-21 | XMS | Encounter Summary ---
Demographics + + + | Address | [address] | | | [place] [address] | + + + | Home Phone [...] Author | [facility] | | | and Jose Enriqueana | + + + | Organization | [facility] | | | and Jose Enriqueana | + + + | Address | Unknown | + + + | Phone | Unavailable | + + + Support + + + + + | Name | Relationship | Address | Phone | + + + + + | Sharlene Lagunas | ECON | [address] | | | [place] | | [place], [place] | | | | | [address] | | + + + + + | Rickey Bui | ECON | [address] [place], [place] | | | | | [address] | | + + + + + Care Team Providers + +------+ + | Care Fuse Spooler Name | Role | Phone | + +------+ + PCP | Unavailable | + +------+ + Encounter Details +--------+ + + + + | Date | Type | Department | Care Team | Description | +--------+ + + + + | 08/21/ | Hospital | [facility] | | | | 1996 | Encounter | MED CTR ICU [address] | | | | | | [place], | | | | | | [place] [address] | | | | | | [phone] | | | +--------+ + + + [...] SERV[place] | | | | | | [address] | | | | | | | | +--------+---------+ + + + documented as of this encounter Visit Diagnoses Not on filedocumented in this encounter"
--- OUTSIDE RECORDS SUMMARY | ~2019-10-21 | XMS | Encounter Summary ---
Demographics + + + | Address | [address] | | | [place] [address] | + + + | Home Phone [...] Author | [facility] | | | and Jose Erniqueana | + + + | Organization | [facility] | | [...] [address] | | | [place] | | [place], [place] | | | | | [address] | | + + + + + | Rickey Bui | ECON | [address] [place], [place] | | | | | [address] | | + + + + + Care Team Providers + +------+ + | Care Purchasing Specialist Name | Role | Phone | + +------+ + PCP | Unavailable | + +------+ + Encounter Details +--------+ + + + + | Date | Type | Department | Care Team | Description | +--------+ + + + + | 03/13/ | Hospital | [facility] | | | | 1996 - | Encounter | MED CTR ICU [address] | | | | | | [place], | | | | 03/14/ | | [place] [address] | | | | 1996 | | [phone] | | | +--------+ + + + [...] 2020 | Visit | | [address] | | | | | | [place] | | | | | | [address] | | | | | | | | +--------+---------+ + + + documented as of this encounter Visit Diagnoses Not on filedocumented in this encounter"
--- OUTSIDE RECORDS SUMMARY | ~2019-10-21 | XMS | Encounter Summary ---
Demographics + + + | Address | [address] | | | [place] [address] | + + + | Home Phone [...] | Author | [facility] | | | and Jose Enriqueana | + + + | Organization | [facility] | | | [...] [address] | | | [place] | | [place], [place] | | | | | [address] | | + + + + + | Rickey Bui | ECON | [address] [place], [place] | | | | | [address] | | + + + + + Care Team Providers + +------+ + | Care Animal Physiology Teacher Name | Role | Phone | [...] Refill | | 2017 | | [facility] | MD Conchis [address] [place] [address] | | | | | [facility] [address] | [facility] [address] | | | | | [place] [address] [place] | [place] [address] | | | | | [address] | [phone] | | | | | [phone] | | | +--------+--------+ + + + [...] SERVIN | | | | | | [id number] | | | | | | | | +--------+---------+ + + + documented as of this encounter Visit Diagnoses Not on filedocumented in this encounter"
--- OUTSIDE RECORDS SUMMARY | ~2019-10-21 | XMS | Encounter Summary ---
Demographics + + + | Address | [address] | | | [place] [address] | + + + | Home Phone [...] Author | [facility] | | | and Jose Enriqueana | + + + | Organization | [facility] | | | and Jose Enriqueana | + + + | Address | Unknown | + + + | Phone | Unavailable | + + + Support + + + + + | Name | Relationship | Address | Phone | + + + + + | Sharlene Lagunas | ECON | [address] | | | [place] | | [address], [place] | | | | | [address] | | + + + + + | Rickey Bui | ECON | [address] [place], [place] | | | | | [address] | | + + + + + Care Team Providers + +------+ + | Care Wire Twisting Machine Operator Name | Role | Phone [...] | | 2017 | Monitor | [facility] [place] | RN | dysfunction (HCC) | | | | [address], | | (Primary Dx); | | | | [place] [address] [place] | | Cardiac pacemaker in | | | | [address] | | situ | | | | [phone] | | | +--------+ + + + [...] SERVIN | | | | | | [address] | | | | | | | [...] | | 0.4ms Data Presenting rhythm is Aflutter/COMMANDING OFFICER TRAFFIC DIVISION. COMMANDING OFFICER TRAFFIC DIVISION 52.5%. Patient is | | | on [...] | | | | |Presenting rhythm is Aflutter/COMMANDING OFFICER TRAFFIC DIVISION. COMMANDING OFFICER TRAFFIC DIVISION 52.5%. Patient is on | | |anticoagulant. [...]
--- OUTSIDE RECORDS SUMMARY | ~2019-10-21 | XMS | Encounter Summary ---
Demographics + + + | Address | [address] | | | [place] [address] | + + + | Home Phone | | + + + | Preferred Language | Unknown | + + + | Marital Status | | + + + | Mandaen Affiliation | 1009 | + + + | Race | Unknown | + + + | Ethnic Group | Unknown | + + + Author + + + | Author | [facility] | | | and Jose Enriqueana | + + + | Organization | [facility] | | [...] SW | | | [address] | | [place], [place] | | | | | [address] | | + + + + + | Rickey Bui | ECON | [address] [place], [place] | | | | | [address] | | + + + + + Care Team Providers + +------+ + | Care Grain Combine Driver Name | Role | Phone | [...] RN | Management | | | | [address] | | | | | | [place] [address] [place] | | | | | | [place] | | | | | | [address] | | | | | | [phone] | | | +--------+ + + + [...] | | | | | [place] | | | | | | [address] | | | | | | | | +--------+---------+ + + + documented as of this encounter Visit Diagnoses + + | Diagnosis | + + | Atrial fibrillation, unspecified type (HCC) | + + documented in this encounter"
--- OUTSIDE RECORDS SUMMARY | ~2019-10-21 | XMS | Encounter Summary ---
Demographics + + + | Address | [address] | | | [place] [address] | + + + | Home Phone | | + + + | Preferred Language | Unknown | + + + | Marital Status | | + + + | Holiness Affiliation | 1009 | + + + | Race | Unknown | + + + | Ethnic Group | Unknown | + + + Author + + + | Author | [facility] | | | and Jose Enriqueana | + + + | Organization | [facility] | | | and Jose Enriqueana | + + + | Address | Unknown | + + + | Phone | Unavailable | + + + Support + + + + + | Name | Relationship | Address | Phone | + + + + + | Sharlene Lagunas | ECON | [address] | | | [place] | | [place], [place] | | | | | [address] | | + + + + + | Rickey Bui | ECON | [address] [facility] [place] | | | | | [address] | | + + + + + Care Team Providers + +------+ + | Care Med Aide Name | Role | Phone | + +------+ + | Luna Larson | PCP | | | PA | | | + +------+ + Encounter Details +--------+ + + + + | Date | Type | Department | Care Team | Description | +--------+ + + + + | 12/05/ | Abstract | [facility] | Provider, | Dyspnea on exertion; | | 2018 | | SURGERY [address] | MD [address] | Localized soft | | | | [place], [place] | [place] [address] [place] | tissue swelling; | | | | [address] | [place] [address] | Benign prostatic | | | | [phone] | | hyperplasia, | | | | [...] SERVIN | | | | | | [address] | | | | | | | [...]
--- OUTSIDE RECORDS SUMMARY | ~2019-10-21 | XMS | Encounter Summary ---
Demographics + + + | Address | [address] | | | [place] [address] | + + + | Home Phone | | + + + | Preferred Language | Unknown | + + + | Marital Status | | + + + | Episcopal Affiliation | 1009 | + + + | Race | Unknown | + + + | Ethnic Group | Unknown | + + + Author + + + | Author | [facility] | | | and Jose Enriqueana | + + + | Organization | [facility] | | [...] [address] | | | [place] | | [place], [place] | | | | | [address] | | + + + + + | Rickey Bui | ECON | [address] [place], [place] | | | | | [address] | | + + + + + Care Team Providers + +------+ + | Care Casket Coverer Name | Role | Phone | + [...] | dysfunction (HCC) | | | | [address] | | | | | | [phone] | | | +--------+ + + + [...] SERVIN | | | | | | [id number] | | | | | | | [...] 2V @ 0.4ms Data Presenting rhythm is CHARM FILTER OPERATOR HELPER/VS. | | | CHARM FILTER OPERATOR HELPER 52.2%. Patient is on anticoagulant. Heart rate [...] | | | | |Presenting rhythm is CHARM FILTER OPERATOR HELPER/VS. CHARM FILTER OPERATOR HELPER 52.2%. Patient is on | | |anticoagulant. [...]
--- OUTSIDE RECORDS SUMMARY | ~2019-10-21 | XMS | Encounter Summary ---
Demographics + + + | Address | [address] | | | [place] [address] | + + + | Home Phone [...] | Author | [facility] | | | and Jose Enriqueana | + + + | Organization | [facility] [...] SW | | | [place] | | [place], [place] | | | | | [address] | | + + + + + | Rickey Bui | ECON | [address] [place], [place] | | | | | [address] | | + + + + + Care Team Providers + +------+ + | Care Automation Machine Operator Name | Role | Phone [...] | dysfunction (HCC) | | | | [address] | | | | | | [phone] | | | +--------+ + + + [...] SERVIN | | | | | | [address] | | | | | | | [...] 2V @ 0.4ms Data Presenting rhythm is 5TH GRADE TEACHER/VS. | | | 5TH GRADE TEACHER 56.7%. Patient is on anticoagulant. Heart rate [...] | | | | |Presenting rhythm is 5TH GRADE TEACHER/VS. 5TH GRADE TEACHER 56.7%. Patient is on | | |anticoagulant. [...]
--- OUTSIDE RECORDS SUMMARY | ~2019-10-21 | XMS | Encounter Summary ---
Demographics + + + | Address | [address] | | | [place] [address] | + + + | Home Phone [...] Author | [facility] | | | and Jose Enriqueana | + + + | Organization | [facility] | | | and [...] | | | [address] | | [place], [place] | | | | | [address] | | + + + + + | Rickey Bui | ECON | [address] [place], [place] | | | | | [address] | | + + + + + Care Team Providers + +------+ + | Care Sales Coach Name | Role | Phone | [...] + + | 06/05/ | Office | [facility] | Rickey Zaragoza PA | ABAD on CPAP (Primary | | 2015 | Visit | SLEEP DISORDER [address] | [address] | Dx) | | | | [address] | [place] | | | | | [place] [address] | [address] | | | | | [phone] | | | +--------+---------+ + + + [...] months, sooner prn. Thirty minutes were spent [id number], wi th the majority of time spent [...] Lemus | | | | | | [place] | | | | | | [address] | | | | | | | | +--------+---------+ + + + documented as of this encounter Visit Diagnoses + + | Diagnosis | + + | ABAD on CPAP - Primary Obstructive sleep apnea (adult) (pediatric) | + + documented in this encounter
--- OUTSIDE RECORDS SUMMARY | ~2019-10-21 | XMS | Encounter Summary ---
Demographics + + + | Address | [address] | | | [place] [address] | + + + | Home Phone [...] + | Author | [facility] | | | and Jose Enriqueana | + + + | Organization | [facility] | | | and Jose Enriqueana | + + + | Address | Unknown | + + + | Phone | Unavailable | + + + Support + + + + + | Name | Relationship | Address | Phone | + + + + + | Sharlene Lagunas | ECON | [address] | | | [place] | | [place], [place] | | | | | [address] | | + + + + + | Rickey Bui | ECON | [address] [place], [place] | | | | | [address] | | + + + + + Care Team Providers + +------+ + | Care Firer Electric Locomotive Name | Role | Phone | + [...] Refill | | 2018 | | [facility] | MD Conchis [address] [place] [address] | | | | | [facility] [address] | [facility] [address] | | | | | [place] [address] [place] | [place] [address] | | | | | [address] | [phone] | | | | | [phone] | | | +--------+--------+ + + + [...] SERVIN | | | | | | [address] | | | | | | | | +--------+---------+ + + + documented as of this encounter Visit Diagnoses + + | Diagnosis | + + | Atrial fibrillation, unspecified type (HCC) - Primary | + + documented in this encounter"
--- OUTSIDE RECORDS SUMMARY | ~2019-10-21 | XMS | Encounter Summary ---
Demographics + + + | Address | [address] | | | [place] [address] | + + + | Home Phone | | + + + | Preferred Language | Unknown | + + + | Marital Status | | + + + | Moravian Affiliation | 1009 | + + + | Race | Unknown | + + + | Ethnic Group | Unknown | + + + Author + + + | Author | [facility] | | | and Jose Enriqueana | + + + | Organization | [facility] | | | and Jose Enriqueana | + + + | Address | Unknown | + + + | Phone | Unavailable | + + + Support + + + + + | Name | Relationship | Address | Phone | + + + + + | Sharlene Lagunas | ECON | [address] | | | [address] | | [place], [place] | | | | | [address] | | + + + + + | Rickey Bui | ECON | [address] [place], [place] | | | | | [address] | | + + + + + Care Team Providers + +------+ + | Care Java Android Developer Name | Role | Phone | [...] | 2016 | | [facility] [place] | Securities Adviser | (Remote) ( LMOR to | | | | [address] | | send remote today.) | | | | [place] [facility] [place] | | | | | | [address] | | | | | | [phone] | | | +--------+ + + + [...] SERVIN | | | | | | [id number] | | | | | | | | +--------+---------+ + + + documented as of this encounter Visit Diagnoses Not on filedocumented in this encounter"
--- OUTSIDE RECORDS SUMMARY | ~2019-10-21 | XMS | Encounter Summary ---
Demographics + + + | Address | [address] | | | [place] [address] | + + + | Home Phone | | + + + | Preferred Language | Unknown | + + + | Marital Status | | + + + | Alevism Affiliation | 1009 | + + + | Race | Unknown | + + + | Ethnic Group | Unknown | + + + Author + + + | Author | [facility] | | | and Jose Enriqueana | + + + | Organization | [facility] | | | and Jose Enriqueana | + + + | Address | Unknown | + + + | Phone | Unavailable | + + + Support + + + + + | Name | Relationship | Address | Phone | + + + + + | Sharlene Lagunas | ECON | [address] | | | [place] | | [address], [place] | | | | | [address] | | + + + + + | Rickey Bui | ECON | [address] [place], [place] | | | | | [address] | | + + + + + Care Team Providers + +------+ + | Care Core Analyst Name | Role | Phone | + +------+ + | Tayo Robles DO | PCP | | + +------+ + Encounter Details +--------+ + + + + | Date | Type | Department | Care Team | Description | +--------+ + + + + | 03/07/ | Hospital | [facility] | Joel Moise | | | 2012 | Encounter | MED CTR CARDIAC | MD [address]ch[address] | | | | | [address] | [address] | | | | | [address] | [place] [address] | | | | | [place], [place] | [phone] | | | | | [address] | | | | | | [phone] | | | +--------+ + + + [...] + + +---------+ + + | Saw Monument, | CAPS four daily | | 0 | 02/03/20 | | | Sermajora repens, (SAW | | | | 12 [...] SERVIN | | | | | | [address] | | | | | | | | +--------+---------+ + + + documented as of this encounter Procedures + +--------+ + + + | Procedure Name | Priori | Date/Time | Associated Diagnosis | Comments | | | ty | | | | + +--------+ + + + | ALT | Routin | 03/07/2013 | | Results for this | | | e | 9:02 AM | | procedure are in the | | | | PDT | | results section. | + +--------+ + + + | PROTIME INR | Routin | 03/07/2013 | | Results for this | | | e | 9:02 AM | | procedure are in the | | | | PDT | | results section. | + +--------+ + + + | AST | Routin | 03/07/2013 | | Results for this | | | e | 9:02 AM | | procedure are in the | | | | PDT | | results section. | + +--------+ + + + | TSH | Routin | 03/07/2013 | | Results for this | | | e | 9:02 AM | | procedure are in the | | | | PDT | | results section. | + +--------+ + + + | BASIC METABOLIC | Routin | 03/07/2013 | | Results for this | | PANEL | e | 9:02 AM | | procedure are in the | | | | PDT | | results section. | + +--------+ + + + documented in this encounter Results TSH (03/07/2013 9:02 AM PDT) + + + + + + | Component | Value | Ref Range | Performed | Pathologist | | | | | At | Signature | + + + + + + | TSH | 0.07 (L) | 0.45 - 5.10 | [facility] | | | | | uIU/mL | [facility] | | | | | [...] + | JENNIE IGLESIAS | [address] | [place] [address] | | | [facility] | | | | | LABORATORY | | | | + + + + + AST (03/07/2013 9:02 AM PDT) + +-------+ + + + | Component | Value | Ref Range | Performed | Pathologist | | | | | At | Signature | + +-------+ + + + | AST | 27 | 10 - 45 U/L | [facility] | | | | | [...] | + + + + + | [facility] | [address] | [place] [address] | | | [facility] | | | | | LABORATORY | | | | + + + + + ALT (03/07/2013 9:02 AM PDT) + +-------+ + + + | Component | Value | Ref Range | Performed | Pathologist | | | | | At | Signature | + +-------+ + + + | ALT | 26 | 10 - 65 U/L | [facility] | | | | | [...] + | [facility] | [address] | [place] [address] | | | [facility] | | | | | LABORATORY | | | | + + + + + Protime INR (03/07/2013 9:02 AM PDT) + + + + + + | Component | Value | Ref Range | Performed | Pathologist | | | | | At | Signature | + + + + + + | Prothrombin | 31.5 (H) | 10.9 - 14.8 sec | [facility] | | | Time | | | [facility] | | | | | | [facility] | | | | | | MEDICAL | | | | | | CENTER | | | | | | LABORATORY | | + + + + + + | INR | 3.0 (H)Comment: Usual | 0.9 - 1.2 | [facility] | | | | oral [...] + + | [facility] | [address] | [place] [address] | | | [facility] | | | | | LABORATORY | | | | + + + + + Basic Metabolic Panel (03/07/2013 9:02 AM PDT) + + + + + + | Component | Value | Ref Range | Performed | Pathologist | | | | | At | Signature | + + + + + + | Na | 137 | 135 - 145 | [facility] | | | | | mmol/L | [facility] | | | | | | HEART | | | | | | MEDICAL | | | | | | CENTER | | | | | | LABORATORY | | + + + + + + | K | 4.5 | 3.5 - 5.0 | [facility] | | | | | mmol/L | [facility] | | | | | | HE[facility] | | | | | | MEDICAL | | | | | | CENTER | | | | | | LABORATORY | | + + + + + + | Cl | 105 | 99 - 109 mmol/L | [facility] [...] + + + + | Glucose | 110 (H)Comment: Mauritanian | 65 - 99 mg/dL | [facility] [...] + + + + | Creatinine | 1.02Comment: IDMS | 0.70 - 1.30 | [facility] | | | | traceable creatinine | mg/dL | [facility] | | | | | | HEART | | | | | | MEDICAL | | | | | | CENTER | | | | | | LABORATORY | | + + + + + + | Calcium | 8.8 | 8.5 - 10.2 | [facility] | [...] + + | JENNIE IGLESIAS | [address] | [place] [address] | | | [facility] | | | | | LABORATORY | | | | + + + + + documented in this encounter Visit Diagnoses Not on filedocumented in this encounter"
--- OUTSIDE RECORDS SUMMARY | ~2019-10-21 | XMS | Encounter Summary ---
Demographics + + + | Address | [address] | | | [place] [address] | + + + | Home Phone | | + + + | Preferred Language | Unknown | + + + | Marital Status | | + + + | Baptist Affiliation | 1009 | + + + | Race | Unknown | + + + | Ethnic Group | Unknown | + + + Author + + + | Author | [facility] | | | and Jose Enriqueana | + + + | Organization | [facility] | | [...] [address] | | | [place] | | [address], [place] | | | | | [address] | | + + + + + | Rickey Bui | ECON | [address] [place], [place] | | | | | [address] | | + + + + + Care Team Providers + +------+ + | Care Electric Fork Operator Name | Role | Phone | + +------+ + PCP | Unavailable | + +------+ + Encounter Details +--------+ + + + + | Date | Type | Department | Care Team | Description | +--------+ + + + + | 09/28/ | Hospital | [facility] | | | | 1998 | Encounter | MED CTR GENERIC OP | | | | | | CONV DEPT [address] | | | | | | [place], | | | | | | [place] [address] | | | | | | [phone] | | | +--------+ + + + [...] SERVIN | | | | | | [address] | | | | | | | | +--------+---------+ + + + documented as of this encounter Visit Diagnoses Not on filedocumented in this encounter"
--- OUTSIDE RECORDS SUMMARY | ~2019-10-21 | XMS | Encounter Summary ---
Demographics + + + | Address | [address] | | | [place] [address] | + + + | Home Phone [...] | Author | [facility] | | | and Jose Enriqueana | + + + | Organization | [facility] | | | and Jose Enriqueana | + + + | Address | Unknown | + + + | Phone | Unavailable | + + + Support + + + + + | Name | Relationship | Address | Phone | + + + + + | Sharlene Lagunas | ECON | [address] | | | [place] | | [place], [place] | | | | | [address] | | + + + + + | Rickey Bui | ECON | [address] [place], [place] | | | | | [address] | | + + + + + Care Team Providers + +------+ + | Care Production Stage Manager Name | Role | Phone | + +------+ + | Tayo Robles DO | PCP | | + +------+ + Reason for Visit + + + | Reason | Comments | + + + | Medication Refill | toprol | + + + Encounter Details +--------+--------+ + + + | Date | Type | Department | Care Team | Description | +--------+--------+ + + + | 02/20/ | Refill | [facility] [place] | Joel Moise | Medication Refill | | 2017 | | [facility] | MD [address]ch[address] | (toprol) | | | | [facility] [address] | [address] [facility] [address] | | | | | [address] | [place] [address] | | | | | [address] | [phone] | | | | | [phone] | | | +--------+--------+ + + + [...] SERVIN | | | | | | [address] | | | | | | | | +--------+---------+ + + + documented as of this encounter Visit Diagnoses + + | Diagnosis | + + | Atrial fibrillation, unspecified type (HCC) | + + documented in this encounter"
--- OUTSIDE RECORDS SUMMARY | ~2019-10-21 | XMS | Encounter Summary ---
Demographics + + + | Address | [address] | | | [place] [address] | + + + | Home Phone | | + + + | Preferred Language | Unknown | + + + | Marital Status | | + + + | Cheondoism Affiliation | 1009 | + + + | Race | Unknown | + + + | Ethnic Group | Unknown | + + + Author + + + | Author | [facility] | | | and Jose Enriqueana | + + + | Organization | [facility] | | | and Jose Enriqueana | + + + | Address | Unknown | + + + | Phone | Unavailable | + + + Support + + + + + | Name | Relationship | Address | Phone | + + + + + | Sharlene Lagunas | ECON | [address] | | | [place] | | [place], [place] | | | | | [address] | | + + + + + | Rickey Bui | ECON | [address] [place], [place] | | | | | [address] | | + + + + + Care Team Providers + +------+ + | Care Destination Imagination Coordinator Name | Role | Phone | [...] Description | +--------+--------+ + + + | 05/07/ | Refill | [facility] [place] | Joel Moise | Medication Refill | | 2015 | | [facility] | MD Conchis [address] [place] [address] | | | | | [facility] [address] | [facility] [address] | | | | | [place] [address] [place] | [place] [address] | | | | | [address] | [phone] | | | | | [phone] | | | +--------+--------+ + + + [...]
--- OUTSIDE RECORDS SUMMARY | ~2019-10-21 | XMS | Encounter Summary ---
Demographics + + + | Address | [address] | | | [place] [address] | + + + | Home Phone [...] + + | Author | [facility] | | | and Jose Enriqueana | + + + | Organization | [facility] | | | and Jose Enriqueana | + + + | Address | Unknown | + + + | Phone | Unavailable | + + + Support + + + + + | Name | Relationship | Address | Phone | + + + + + | Sharlene Lagunas | ECON | [address] | | | [place] | | [place], [place] | | | | | [address] | | + + + + + | Rickey Bui | ECON | [address] [place], [place] | | | | | [address] | | + + + + + Care Team Providers + +------+ + | Care Dynamite Shooter Name | Role | Phone | + [...] 2016 | | CARDIOLOGY JAIME Balderrama MD [address] [place] [address] | | | | | [address] [facility] | [facility] [address] | | | | | [address] | [place] [address] | | | | | [address] | [phone] | | | | | [phone] | | | +--------+--------+ + + + [...] SERVIN | | | | | | [address] | | | | | | | | +--------+---------+ + + + documented as of this encounter Visit Diagnoses + + | Diagnosis | + + | Atrial flutter, unspecified - Primary | + + documented in this encounter"
--- OUTSIDE RECORDS SUMMARY | ~2019-10-21 | XMS | Encounter Summary ---
Demographics + + + | Address | [address] | | | [place] [address] | + + + | Home Phone [...] + | Author | [facility] | | | and Jose Enriqueana | + + + | Organization | [facility] | | [...] | | | [address] | | [address], [place] | | | | | [address] | | + + + + + | Rickey Bui | ECON | [address] [place], [place] | | | | | [address] | | + + + + + Care Team Providers + +------+ + | Care Ship/Rec/Doc Control Name | Role | Phone | + +------+ + | Tayo Robles DO | PCP | | + +------+ + Reason for Visit + + + | Reason | Comments | + + + | Device Check | No billed | | (In-office) | | + + + Encounter Details +--------+ + + + + | Date | Type | Department | Care Team | Description | +--------+ + + + + | 10/14/ | Procedure | [facility] | | Cardiac pacemaker in | | 2014 | visit | CARDIOLOGY [facility] | | situ (Primary Dx); | | | | [address] | | Sinoatrial node | | | | [place] [address] | | dysfunction (HCC) | | | | [place] | | | | | | [address] | | | | | | [phone] | | | +--------+ + + + [...] SERVIN | | | | | | [address] | | | | | | | | +--------+---------+ + + + documented as of this encounter Procedures + +--------+ + + + | Procedure Name | Priori | Date/Time | Associated Diagnosis | Comments | | | ty | | | | + +--------+ + + + | DEVICE INTERROGATION | Routin | 10/14/2014 | Sinoatrial node | Results for this | | | e | 4:00 PM | dysfunction (HCC) | procedure are in the | | | | PDT | Cardiac pacemaker in | results section. | | | | | situ | | + +--------+ + + + documented in this encounter Results Device Interrogation (10/14/2014 4:00 PM PDT) + + + | Narrative | Performed At | + + + | Alex Jensen, | | | quality assurance monitor body 10/14/2014 16:00 PATIENT NAME: Prabhjot Bui | | | : 1945: AGE: 68 y.o. Pacemaker Evaluation | | | Report October 14, 2014 Reason for evaluation: requestedIndication for | | | pacemaker: ICD-9-CM 1. Cardiac pacemaker in situ V45.01 Device | | | Interrogation 2. Sinoatrial node dysfunction (HCC) 427.81 Device | | | Interrogation Patient [...] device | | | check. | | | | | | [...]
--- OUTSIDE RECORDS SUMMARY | ~2019-10-21 | XMS | Encounter Summary ---
Demographics + + + | Address | [address] | | | [place] [address] | + + + | Home Phone [...] + | Author | [facility] | | | and Jose Enriqueana | + + + | Organization | [facility] [...] | | | [place] | | [place], [place] | | | | | [address] | | + + + + + | Rickey Bui | ECON | [address] [place], [place] | | | | | [address] | | + + + + + Care Team Providers + +------+ + | Care City Engineer Name | Role | Phone | [...] Description | +--------+--------+ + + + | 05/26/ | Refill | [facility] | Joel Moise | Medication Refill | | 2015 | | [facility] | MD Conchis [address] [place] [address] | | | | | [facility] [address] | [facility] [address] | | | | | [place] [address] [place] | [place] [address] | | | | | [address] | [phone] | | | | | [phone] | | | +--------+--------+ + + + [...] 10/30/ | Office | Sleep Medicine | Rickye Zaragoza PA | | | 2020 | Visit | | [address] | | | | | | [...]
--- OUTSIDE RECORDS SUMMARY | ~2019-10-21 | XMS | Encounter Summary ---
Demographics + + + | Address | [address] | | | [place] [address] | + + + | Home Phone [...] | Author | [facility] | | | and Jose Enriqueana | + + + | Organization | [facility] | | | and Jose Enriqueana | + + + | Address | Unknown | + + + | Phone | Unavailable | + + + Support + + + + + | Name | Relationship | Address | Phone | + + + + + | Sharlene Lagunas | ECON | [address] | | | [place] | | [facility] [place] | | | | | [address] | | + + + + + | Rickey Bui | ECON | [address] [place], [place] | | | | | [address] | | + + + + + Care Team Providers + +------+ + | Care Aligner Barrel And Receiver Name | Role | Phone | + [...] | | 2015 | Monitor | CARDIOLOGY HARTMAN | RN | dysfunction (HCC) | | | | [address], | | (Primary Dx); | | | | [place] [address] [place] [address] | | Cardiac pacemaker in | | | | [address] | | situ | | | | [phone] | | | +--------+ + + + [...] SERVIN | | | | | | [address] | | | | | | | [...] 1. Sinoatrial node | | | dysfunction ([facility]) 427.81 Device Interrogation 2. Cardiac pacemaker in [...] is atrial | | | flutter with SENIOR OFFICE ASSISTANT. When not in AT/AF: AP 86.6% and SENIOR OFFICE ASSISTANT 1.1%. Mostly | | | SENIOR OFFICE ASSISTANT when in AT/AF. Heart rate histograms appear [...] | |Presenting rhythm is atrial flutter with SENIOR OFFICE ASSISTANT. When not in AT/AF: | | |AP 86.6% and SENIOR OFFICE ASSISTANT 1.1%. Mostly SENIOR OFFICE ASSISTANT when in AT/AF. Heart rate | | [...]
--- OUTSIDE RECORDS SUMMARY | ~2019-10-21 | XMS | Encounter Summary ---
Demographics + + + | Address | [address] | | | [place] [address] | + + + | Home Phone [...] Author | [facility] | | | and Jose Enriqueana | + + + | Organization | [facility] | | | and Jose Enriqueana | + + + | Address | Unknown | + + + | Phone | Unavailable | + + + Support + + + + + | Name | Relationship | Address | Phone | + + + + + | Sharlene Lagunas | ECON | [address] | | | [place] | | [facility] [place] | | | | | [address] | | + + + + + | Rickey Bui | ECON | [address] [place], [place] | | | | | [address] | | + + + + + Care Team Providers + +------+ + | Care Supervisor Finishing Room Name | Role | Phone | + [...] Check | | 2016 | | [facility]ARDIOLOGY [facility] | Automatic Fancy Machine Operator | (Remote) | | | | [address] | | | | | | [place] [address] [place] | | | | | | [address] | | | | | | [phone] | | | +--------+ + + + [...]
--- OUTSIDE RECORDS SUMMARY | ~2019-10-21 | XMS | Encounter Summary ---
Demographics + + + | Address | [address] | | | [place] [address] | + + + | Home Phone | | + + + | Preferred Language | Unknown | + + + | Marital Status | | + + + | Gnosticism Affiliation | 1009 | + + + | Race | Unknown | + + + | Ethnic Group | Unknown | + + + Author + + + | Author | [facility] | | | and Jose Enriqueana | + + + | Organization | [facility] | [...] [address] | | | [address] | | [address], [place] | | | | | [address] | | + + + + + | Rickey Bui | ECON | [address] [place], [place] | | | | | [address] | | + + + + + Care Team Providers + +------+ + | Care Branner Machine Tender Name | Role | Phone | + +------+ + | Tayo Robles DO | PCP | | + +------+ + Encounter Details +--------+ + + + + | Date | Type | Department | Care Team | Description | +--------+ + + + + | 12/07/ | Orders Only | JENNIE SIDDIQUI | Joel Moise | | | 2011 | | [facility] [place] | MD [address] | | | | | [address] | [address] | | | | | [facility] [address] | [place] [address] | | | | | [address] | [phone] | | | | | [phone] | | | +--------+ + + + [...] 10/30/ | Office | Sleep Medicine | Rikcey Zaragoza PA | | | 2019 | Visit | | [address] | | | | | | [place] | | | | | | [address] | | | | | | | | +--------+---------+ + + + documented as of this encounter Procedures + +--------+ + + + | Procedure Name | Priori | Date/Time | Associated Diagnosis | Comments | | | ty | | | | + +--------+ + + + | HISTORICAL LAB PANEL | Routin | 08/23/2012 | | Results for this | | RESULT | e | | | procedure are in the | | | | | | results section. | + +--------+ + + + | HISTORICAL LAB PANEL | Routin | 07/30/2012 | | Results for this | | RESULT | e | | | procedure are in the | | | | | | results section. | + +--------+ + + + | HISTORICAL LAB PANEL | Routin | 12/08/2011 | | Results for this | | RESULT | e | | | procedure are in the | | | | | | results section. | + +--------+ + + + documented in this encounter Results HISTORICAL LAB PANEL RESULT (08/23/2012) + +-------+ + + + | Component | Value | Ref Range | Performed | Pathologist | | | | | At | Signature | + +-------+ + + + | T3, Free | 3.96 | | EXTERNAL | | | | | | LAB | | + +-------+ + + + | Hct | 47.2 | | EXTERNAL | | | | | | LAB | | + +-------+ + + + | Hemoglobin | 15.5 | | EXTERNAL | | | | | | LAB | | + +-------+ + + + | MCV | 92.8 | | EXTERNAL | | | | | | LAB | | + +-------+ + + + | Platelet | 171 | | EXTERNAL | | | Count | | | LAB | | + +-------+ + + + | Progesteron | 0.476 | | EXTERNAL | | | e | | | LAB | | + +-------+ + + + | PSA | 1.02 | | EXTERNAL | | | | | | LAB | | + +-------+ + + + | TESTOSTERON | 8.84 | | EXTERNAL | | | E FREE | | | LAB | | + +-------+ + + + | TESTOSTERON | 685.5 | | EXTERNAL | | | E TOTAL | | | LAB | | + +-------+ + + + + + | Specimen | + + | | + + + +---------+ + + | Performing | Address | City/State/Zipcode | Phone Number | | Organization | | | | + +---------+ + + | EXTERNAL LAB | | | | + +---------+ + + HISTORICAL LAB PANEL RESULT (07/30/2012) + +-------+ + + + | Component | Value | Ref Range | Performed | Pathologist | | | | | At | Signature | + +-------+ + + + | ALT | 16 | | EXTERNAL | | | | | | LAB | | + +-------+ + + + | AST | 21 | | EXTERNAL | | | | | | LAB | | + +-------+ + + + | FT4 | 6.98 | | EXTERNAL | | | | | | LAB | | + +-------+ + + + | TSH | 0.06 | | EXTERNAL | | | | [...] +---------+ + + HISTORICAL LAB PANEL RESULT (12/08/2011) + +-------+ + + + | Component | Value | Ref Range | Performed | Pathologist | | | | | At | Signature | + +-------+ + + + | Albumin | 3.9 | | EXTERNAL | | | | | | LAB | | + +-------+ + + + | Alkaline | 62 | | EXTERNAL | | | Phosphatase | | | LAB | | + +-------+ + + + | ALT | 18 | | EXTERNAL | | | | | | LAB | | + +-------+ + + + | AST | 23 | | EXTERNAL | | | | | | LAB | | + +-------+ + + + | Bilirubin | 2 | | EXTERNAL | | | Total | | | LAB | | + +-------+ + + + | B-TYPE | NULL | | EXTERNAL | | | NATRIURETIC | | | LAB | | | PEPTIDE | | | | | + +-------+ + + + | BUN | 12 | | EXTERNAL | | | | | | LAB | | + +-------+ + + + | CRP | 1.3 | | EXTERNAL | | | | | | LAB | | + +-------+ + + + | Creatinine | 0.8 | | EXTERNAL | | | | | | LAB | | + +-------+ + + + | DHEA | 89.64 | | EXTERNAL | | | | | | LAB | | + +-------+ + + + | Fibrinogen | 345 | | EXTERNAL | | | | | | LAB | | + +-------+ + + + | FOLATE | >20 | | EXTERNAL | | | | | | LAB | | + +-------+ + + + | FT4 | 5.92 | | EXTERNAL | | | | | | LAB | | + +-------+ + + + | GFR | NULL | | EXTERNAL | | | ESTIMATE | | | LAB | | | (REF) | | | | | + +-------+ + + + | Glucose | 103 | | EXTERNAL | | | | | | LAB | | + +-------+ + + + | Hct | 48.6 | | EXTERNAL | | | | | | LAB | | + +-------+ + + + | Hemoglobin | 15.8 | | EXTERNAL | | | | | | LAB | | + +-------+ + + + | K | 4.5 | | EXTERNAL | | | | | | LAB | | + +-------+ + + + | MCV | 93.8 | | EXTERNAL | | | | | | LAB | | + +-------+ + + + | Na | 138 | | EXTERNAL | | | | | | LAB | | + +-------+ + + + | Platelet | 155 | | EXTERNAL | | | Count | | | LAB | | + +-------+ + + + | Progesteron | 0.282 | | EXTERNAL | | | e | | | LAB | | + +-------+ + + + | PSA | 0.845 | | EXTERNAL | | | | | | LAB | | + +-------+ + + + | T3, Total | 118.5 | | EXTERNAL | | | | | | LAB | | + +-------+ + + + | TESTOSTERON | 11.94 | | EXTERNAL | | | E FREE | | | LAB | | + +-------+ + + + | TESTOSTERON | 928.7 | | EXTERNAL | | | E TOTAL | | | LAB | | + +-------+ + + + | TSH | 0.027 | | EXTERNAL | | | | | | LAB | | + +-------+ + + + | VITAMIN | >2000 | | EXTERNAL | | | B-12 | | | LAB | | + +-------+ + + + | Vitamin D, | 45 | | EXTERNAL | | | 25 Hydroxy | | | LAB | | + [...]
--- OUTSIDE RECORDS SUMMARY | ~2019-10-21 | XMS | Encounter Summary ---
Demographics + + + | Address | [address] | | | [place] [address] | + + + | Home Phone [...] Author | [facility] | | | and Jose Enriqueana | + + + | Organization | [facility] | | | and oJse Enriqueana | + + + | Address | Unknown | + + + | Phone | Unavailable | + + + Support + + + + + | Name | Relationship | Address | Phone | + + + + + | Sharlene Lagunas | ECON | [address] | | | [address] | | [place], [place] | | | | | [address] | | + + + + + | Rickey Bui | ECON | [address] [place], [place] | | | | | [address] | | + + + + + Care Team Providers + +------+ + | Care Finish Specialist Name | Role | Phone | [...] | | CARDIOLOGY [place] | MD [address] [place] [address] | | | | | [address] | [address] [facility] [address] | | | | | [address] | [place] [address] | | | | | [place] | [phone] | | | | | [address] | | | | | | [phone] | | | +--------+--------+ + + + [...] SERVIN | | | | | | [id number] | | | | | | | | +--------+---------+ + + + documented as of this encounter Visit Diagnoses Not on filedocumented in this encounter"
--- OUTSIDE RECORDS SUMMARY | ~2019-10-21 | XMS | Encounter Summary ---
Demographics + + + | Address | [address] | | | [place] [address] | + + + | Home Phone [...] + + | Author | [facility] | | | and Jose Enriqueana | + + + | Organization | [facility] | | | and Jose Enriqueana | + + + | Address | Unknown | + + + | Phone | Unavailable | + + + Support + + + + + | Name | Relationship | Address | Phone | + + + + + | Sharlene Lagunas | ECON | [address] | | | [place] | | [address], [place] | | | | | [address] | | + + + + + | Rickey Bui | ECON | [address] [place], [place] | | | | | [address] | | + + + + + Care Team Providers + +------+ + | Care Patient Coordinator Front Desk Name | Role | Phone | + [...] Description | +--------+---------+ + + + | 08/14/ | Office | [facility] | Rickey Zaragoza PA | ABAD on CPAP (Primary | | 2017 | Visit | SLEEP DISORDER [address] | [address] | Dx) | | | | [address] | [place] | | | | | [place] [address] | [address] | | | | | [phone] | | | +--------+---------+ + + + [...] + + + | Blood Pressure | 132/80 | 08/14/2017 1:25 PM | | | | | PDT | | + + + + + | Pulse | 80 | 08/14/2017 1:25 PM | | | | | PDT | | + + + + + | Temperature | - | - | | + + + + + | Respiratory Rate | 16 | 08/14/2017 1:25 PM | | | | | PDT | | + + + + + | Oxygen Saturation | 98% | 08/14/2017 1:25 PM | | | | | PDT | | + + + + + | Inhaled Oxygen | - | - | | | Concentration | | | | + + + + + | Weight | 110 kg (242 lb 8.1 | 08/14/2017 1:25 PM | | | | oz) | PDT | | + + + + + | Height | - | - | | + + + + + | Body Mass Index | 29.52 | 08/11/2017 3:31 PM | | | | | PDT | | + + + + + documented in this encounter Progress Notes Rickey Zaragoza PA - 08/14/2017 1:30 PM PDT Subjective: Patient ID: Prabhjot Bui is a 71 y.o. male. HPI last office visit: 09/08/2016 date of polysomnography: 03/01/2004 AHI: 14.0 (35.3 during REM) O2%: 90% Machine type: ResMed AirSense 10 Mask type: full face mask DME: [facility] [place] pressure: 6-16 cm Median: 8.0 cm 95%: 11.4 cm maxium: 12.7 cm Nights using CPAP: 34/34 364/365 % of nights >4 hours: 91% 93% Average usage (all nights): 5:24 5:52 average usage (nights used): 5:24 5:53 AHI: 4.6 Prabhjot comes in for CPAP compliance. He has struggled with wearing his CPAP for the duration of his sleep on a nightly basis in the past, but he has done much better with the ResMed rSense 10. He continues to feel that it is working better than his previous machine. He is wearing it nightly for the duration of his sleep. The only night he didn't use his CPAP du ring the last year was a night that he was taking a redeye flight to the [facility] [place]. His CP AP is now a regular part of his sleep routine. He does not have any questions or concerns. I have discussed the download and paperwork in detail. This shows that his sleep apnea is controlled, with an AHI of 4.6. It also shows that his leaks are controlled. BP 132/80 | Pulse 80 | Resp 16 | Wt 110 kg (242 lb 8.1 oz) | SpO2 98% | BMI 29.52 kg/m Review of Systems Objective: Physical Exam Assessment: Problem #1: OBSTRUCTIVE SLEEP APNEA ([id number]) This is controlled with CPAP. His CPAP compliance is going well with his ResMed AirSense 1 0. Plan: 1. He is to continue with CPAP indefinitely. 2. Touch base with medical supplier twice per year to ensure that all equipment is satisfa ctory. I will follow up again in 1 year, sooner prn. At that time we will reassess with all appro priate paperwork. Fifteen minutes were spent [id number], with the majority of time spent in counseling. Rickey Zaragoza PA-C Cc: Tayo Robles DO [place], [place], Medical As sistant - 08/14/2017 1:30 PM PDTFormatting of this note might be different from the origina l. 08/14/17 1300 Jules Depression Inventory-II Depression Score 9 - Minimal depression Insomnia Severity Index Insomnia Severity Index 9 [place] Sleepiness Scale Sitting and reading 2 Watching [...] 56.17 MH 56.1 PCS 42.62 MCS 55.06 documented in this enco unter Plan of [...] SERVIN | | | | | | [address] | | | | | | | | +--------+---------+ + + + documented as of this encounter Visit Diagnoses + + | Diagnosis | + + | ABAD on CPAP - Primary Obstructive sleep apnea (adult) (pediatric) | + + documented in this encounter"
--- OUTSIDE RECORDS SUMMARY | ~2019-10-21 | XMS | Encounter Summary ---
Demographics + + + | Address | [address] | | | [place] [address] | + + + | Home Phone | | + + + | Preferred Language | Unknown | + + + | Marital Status | | + + + | Faith Affiliation | [id number] | + + + | Race | Unknown | + + + | Ethnic Group | Unknown | + + + Author + + + | Author | [facility] | | | and Jose Enriqueana | + + + | Organization | [facility] | | | and Jose Enriqueana | + + + | Address | Unknown | + + + | Phone | Unavailable | + + + Support + + + + + | Name | Relationship | Address | Phone | + + + + + | Sharlene Lagunas | ECON | [address] | | | [place] | | [address], [place] | | | | | [address] | | + + + + + | Rickey Bui | ECON | [address] [place], [place] | | | | | [address] | | + + + + + Care Team Providers + +------+ + | Care Online Tutor Name | Role | Phone | + [...] Closed | | Radiology | Diagnoses | Kunz, | Wsh Echo | | | | | S/P AVR | Augusto Balderrama, | [address] | | | | | (aortic | [place] [address] | [place] | | | | | valve | [address] | [address] | | | | | replacement) | [address] | Phone: | | | | | Medication | [place] | [phone] | | | | | management | [address] | Fax: | | | | | Procedures | Phone: | [phone] | | | | | ECHO | [phone] | | | | | | Complete | Fax: | | | | | | | [phone] | | +--------+--------+ + + + + Reason for Visit + + + | Reason | Comments | + + + | Follow-up | 6 month | + + + | Device Check | | | (In-office) | | + + + | Atrial Fibrillation | | + + + Encounter Details +--------+---------+ + + + | Date | Type | Department | Care Team | Description | +--------+---------+ + + + | 08/15/ | Office | [facility] [place] | Augusto Kunz | Sinoatrial node | | 2019 | Visit | [facility]ARDIOLOGY [facility] | MD [address] | dysfunction ([facility]) DO | | | | HI[address] | [address] | NOT DELETE. | | | | [facility] [address] | [place] [address] | (Primary Dx); | | | | [address] | [phone] | Pacemaker - | | | | [phone] | | Medtronic - [id number] | | | | | | Adapta - SN: | | | | | | [id number] Implanted | | | | | | 02/27/2012; Atrial | | | | | | fibrillation, | | | | | | unspecified type | | | | | | ([facility]); Hypertension; | | | | | | S/P AVR (aortic | | | | | | valve replacement); | | | | | | Aortic valve | | | | | | replaced; Medication | | | | | | management | +--------+---------+ + + + Social History [...] + + + | Blood Pressure | 102/68 | 08/15/2018 11:24 AM | left | | | | PDT | | + + + + + | Pulse | 75 | 08/15/2018 11:13 AM | per device check | | | | PDT | | [...] Weight | 109.3 kg (241 lb) | 08/15/2018 11:13 AM | | | | | PDT | | + + + + + | Height | 193 cm (6' 4") | 08/15/2018 11:13 AM | | | | | PDT | | + + + + + | Body Mass Index | 29.34 | 08/15/2018 11:13 AM | | | | | PDT | | + + + + + documented in this encounter Patient Instructions Patient Instructions Augusto Kunz MD - 08/15/2018 11:20 AM PDTDigoxin level trough Echocardiogram in [facility] Dr. Soto to read See me in 6 months We will consider a trial of Propafenone to help slow the heart some 30 mm knee high support hose Comfort Fit - we will give you directionsElectronically signed by Augusto Kunz MD a t 08/15/2018 11:57 AM PDT documented in this encounter Progress Notes Augusto Kunz MD - 08/15/2018 11:20 AM PDT PATIENT NAME: Prabhjot Bui : 1945: AGE: 72 y.o. Date of service: 08/15/2018 PRIMARY CARE: KENNETH Felix CHIEF COMPLAINT: Chief Complaint Patient presents with Follow-up 6 month Device Check (In-office) Atrial Fibrillation Outline of Cardiac Problems that were considered on 08/15/2018 to make treatment decisions 1. Sinoatrial node [...] moderate TR 29-34 mmHg 3. Echocardiogram 09/11/17 ([facility])- mild biatrial dilatation, EF 65-70%, mild alcon l regurgitation, normal functioning bioprosthetic aortic valve, mild to moderate tricuspid r egurgitation, PAP 35-40 mmHg 4. Hypertension HISTORY OF PRESENT ILLNESS 72 y.o. year old male seen in follow up for the problems listed below. The patient was last seen by me on 02/09/18 with complaints of stamina "going downhill." He was only taking 20 mg of Lasix once a week. His Toprol-XL was increased to 50 mg BID at that time and was increas ed further on 05/23/18 to 75 mg BID for improved rate control. Presently, the patient reports his energy level continues to decline, however he forces him self to be active. He admits he continues to not take his Lasix regularly. Otherwise, he is doing well with no cardiac complaints. The patient denies exertional or resting chest pain, shortness of breath, PND, and orthopnea. CURRENT ASSESSMENT BY PROBLEM LIST 1. Sinoatrial node dysfunction (HCC) - V paced 55.7% and therefore, persists. 2. Pacemaker - Medtronic - ADDRL1 Adapta - SN: [id number] Implanted 02/27/2012 - Function is appropriate with 7.5 years of battery life remaining. 3. Atrial fibrillation (HCC) - Rate control not ideal with 22% above 110 bpm and some episo lamonte as fast as approximately 180 bpm. He has some symptoms of exertional fatigue - nothing h as changed re this. BP of 102 systolic does not permit much more increase of beta niko. 4. Hypertension - Well controlled. 5. S/P AVR (aortic valve replacement) - Valve sounds good. 6. Edema - Persists and chronic without neck vein distention. Plan: 1. Digoxin level trough 2. Echocardiogram in [facility] - Dr. Soto to read 3. See me in 6 months 4. We will consider a trial of Propafenone to help slow the heart some 5. 30 mm knee high support hose FOLLOWUP Return in about 6 months (around 02/15/2019) for a fib , f/u MD. MEDICATION ADJUSTMENTS New Prescriptions No medications on file There are no discontinued medications. NEW ORDERS Orders Placed This Encounter Procedures Digoxin Level ECG 12 lead ECHO Complete . MEDICAL, SURGICAL, AND PERSONAL HISTORY Past Medical History: Diagnosis Date Aortic [...] Pulmonary vein isolation carried out at the [facility] on 09/01/01. Phlebitis Phlebitis - right leg with superficial enlargement of superficial veins over the right thi gh, improved at office visit 01/17/06. Sleep apnea CPAP- WILL BRING SOB (shortness of breath) D/T A FIB W/ACTIVITY Thyroid disease HYPOTHYROID TIA (transient ischemic attack) LAST 2009 OR 2010 HAS HAD "A FEW TIA"- Varicose veins Past Surgical History: Procedure Laterality Date ABLATION OF DYSRHYTHMIC FOCUS 04/30/2014 A-FIB ABLATION W/IVETTE AND SHAYNA W/DR SARAVIA; Laterality: N/A; Surgeon: Rickey Galvan MD ; Location: [facility] ELECTROPHYSIOLOGY AORTIC ROOT REPLACEMENT AND REIMPLANTATION OF CORONARY ARTERIES 05/28/08 Dr. Kelsey ASCENDING AORTA REPLACEMENT 05/28/08 Dr. Kelsey ATRIAL ABLATION SURGERY 2002 ,2008 CARDIAC PACEMAKER PLACEMENT 02/27/12 MEDTRONIC CARDIOVERSION 06/19/00,11/24/00,07/25/01,10/18/01,12/26/02,12/02/04 CARDIOVERSION 03/07/13 CHOLECYSTECTOMY HIP JOINT REPLACEMENT Left 05/17/15 INGUINAL HERNIA REPAIR X2 SHOULDER SURGERY 05/28/13 right WRIST SURGERY left His family history includes Atrial fibrillation in his mother; Colon cancer in his brother ; Hypertension in his mother and sister; Stroke (age of onset: 62) in his sister. He reports that he has never smoked. He has never used smokeless tobacco. He reports that he does not drink alcohol or use drugs. CURRENT MEDICATIONS Outpatient Encounter Prescriptions as of 08/15/2018 Medication Sig Dispense Refill anastrozole (ARIMIDEX) 1 mg tablet Take 0.25 tablets by mouth Once a week. Mondays THYROID 15 MG tablet Take 1 tablet [...] 1 capsule by mouth Daily. Also has M-Nwtyla-Vaf teine 250 mg & Pyrroloquinoline PQQ 10 mg DHEA 25 MG CAPS Take 25 mg by mouth Daily. (Patient taking differently: Take 25 mg by m outh 2 times daily.) digoxin (LANOXIN) 250 mcg tablet TAKE 1 TABLET DAILY 90 tablet 3 digoxin (LANOXIN) 250 mcg tablet TAKE 1 TABLET DAILY 90 tablet 1 fish oil 1,000 mg capsule Take 1,000 mg by mouth Daily. furosemide (LASIX) 20 mg tablet Take 20 mg by mouth as needed. 1 tablet daily on Monday and with Potassium Garlic 1000 MG CAPS Take 1,000 mg by mouth Daily. L-Methylfolate 15 MG TABS Take 15 mg by mouth Daily. MAGNESIUM PO Take 133 mg by mouth. metoprolol succinate (TOPROL-XL) 50 mg 24 hr tablet Take 1.5 tablets by mouth 2 times d aily. 270 tablet 0 non-formulary medication Daily. Nerium po potassium chloride (K-DUR) 20 mEq ER tablet 1 tablet on Monday and with Furose mide (Patient not taking: Reported on 02/09/2018) 30 tablet 2 Potassium Gluconate 595 MG [...] into the m uscle every 14 days. UNABLE TO FIND Daily. Med Name: Spirolina warfarin (COUMADIN) 5 mg tablet Take by mouth See Admin Instructions. As directed by Dylan TA No facility-administered encounter medications on file as of 08/15/2018. ALLERGIES Allergies Allergen Reactions Flecainide Other (See Comments) AFTER 1ST ABLATION, HAD LEG SWELLING, INCREASED HEART RATE Amoxicillin Rash ROS 12 point ROS was completed and is negative except for: fatigue, hearing loss, tinnitus, pal pitations, ankle edema. PHYSICAL EXAM BP 102/68 Comment: left | Pulse 75 Comment: per device check | Ht 1.93 m (6' 4") | Wt 109. 3 kg (241 lb) | BMI 29.34 kg/m Body mass index is 29.34 kg/m. By Dr. Kunz: heart rate 82 bpm on transfer from chair to exam table. GENERAL: Pleasant appearing in no apparent distress HEENT: Conjunctivae and lids are normal in appearance. Pharynx: benign Eyes: Extraocular movements intact. NECK: Supple, no JVD, Carotids are 2+ and brisk bilaterally without bruits. LUNGS: Full expansion. Clear to auscultation. CHEST: Well healed midline sternotomy. Pacemaker site well healed on the left. CARDIAC: PMI is non-displaced. Regular rate and rhythm with S1 normal, S2 prosthetic. 1/6 short systolic murmur. No rubs or gallops. Blood pressures are equal in upper extremities. ABDOMEN: Soft, non-tender, nondistended with normal, active bowel sounds. Normal abdominal pulsation without bruit. EXTREMITIES: No clubbing or cyanosis. 3-4+ edema bilaterally (chronic). PULSES: PT 3+ bilaterally. NEUROLOGIC: Non-focal. Patient is oriented to time, place, and person. Normal affect. SKIN: No rashes or skin breakdown. No bruising. MUSCULOSKELETAL: Back - no CVA or paravertebral tenderness. EKG 08/16/2018: Rhythm: underlying atrial fibrillation, electronic ventricular pacemaker. R ate: 73. Chancellor: -70 degrees. FL Interval: .N/A. QRS: .132. QT: .392. QTC: .414. Interpretatio n: none further. Pacemaker Analysis: 08/16/2018 See bio medical technician report. Thresholds are good. Outputs are appropriate. V paced 55.7%. Battery life: 7.5 years. Afib episodes: 75 VHR episodes - fastest 04/26/18 233 bpm 7 seconds, longest 05/21/18 197 bp m 1 minute 8 seconds Heart rate histogram is good. 22% of heart rate greater than 110 bpm. Programming changes: None. Other: N/A. LABS Lab Results Component Value Date WBC [...] PSA 1.02 08/23/2012 INR 2.2 (H) 05/01/2014 BNP NULL 02/28/2013 Thank you for allowing me to participate in the care of this patient. If you have any ques tions, please do not hesitate to contact me. By signing my name below, I, Markie Govea, attest that this documentation has been prepar ed under the direction and in the presence of Augusto Kunz MD. Electronically Signed: [place]. 08/16/2018. 5:14. Signed by: Augusto Kunz MD 08/16/2018, 5:14 Patient Care Team: KENNETH Byers as PCP - General (Physician Asst - Certified) KENNETH Givens (Physician Automatic Brine Mixer Operator) Augusto Kunz MD as Physician (Cardiology) documented in thi s encounter Plan of Treatment +--------+---------+ + + + | Date | Type | Specialty | Care Team | Description | +--------+---------+ + + + | 10/30/ | Office | Sleep Medicine | Rickey Zaragoza PA | | | 2019 | Visit | | [address] | | | | | | [place] | | | | | | [address] | | | | | | | | +--------+---------+ + + + + +------+--------+ + + | Name | Type | Priori | Associated Diagnoses | Order Schedule | | | | ty | | | + +------+--------+ + + | Digoxin Level | Lab | Routin | Medication | 1 Occurrences | | | | e | management | starting 08/15/2018 | | | | | | until 08/16/2019 | + +------+--------+ + + documented as of this encounter Procedures + +--------+ + + + | Procedure Name | Priori | Date/Time | Associated Diagnosis | Comments | | | ty | | | | + +--------+ + + + | ECG 12 LEAD - PB | Routin | 08/15/2018 | Atrial | Results for this | | | e | 11:20 AM | fibrillation, | procedure are in the | | | | PDT | unspecified type | results section. | | | | | (HCC) | | + +--------+ + + + | ECG - EXTERNAL SCAN | | 08/15/2018 | | Results for this | | [...] | | | | | | n [place] | | | | | + +---------+ [...] Room Number JAZMIN Patient | | | [id number] Date of Study 10/02/2018 | | | Number Visit Number [id number] | | | Referring Physician Augusto Kunz MD Number | | | [facility] Date of | | | 1945 Interlocking Pavement Installer WILLEM SHELLY Age | | | 72 year(s) Interpreting SEVEN | | | MD MICHAEL | | | Surveillance Supervisor Gender Male Nurse | | | Stress Case Manager Specialist | | | Procedure Type of Study [...] | | | patient's prior study of 2017, no significant changes arenoted. | | | [...] Diastolic: 1.05 cm EF | | | Kgjukiazg59% EF Calculated: 64% Right Ventrical TAPSE: 2.3 [...] Diastolic: 1.05 cm | | | EF Hlsffmmef38% | | | EF Calculated: 64% | [...] + | Ariel, Rad Results In - 10/02/2018 6:20 PM PDT Transthoracic Echocardiography Report | | (TTE) Demographics Patient Name LEONEL LAZARO Room Number JAZMIN | | Patient [id number] Date of Study 10/02/2018 Number Visit Number | | [id number] Referring Physician Augusto Kunz MD | | Number [facility] Date of 1945 | | Interlocking Pavement Installer WILLEM BRAVO Age 72 year(s) Interpreting | | SEVEN RODRIGUEZ MD Surveillance Supervisor Gender Male | | Nurse Stress TechnicianProcedureType [...] 1.09 cm PW Diastolic: 1.05 cm EF Kdzuphpuj63% EF Calculated: 64% Right | | Ventrical [...] PW Diastolic: 1.05 cm | | EF Flwkddlor08% | | EF Calculated: 64% | | [...] | | + +---------+ + + ECG 12 lead (08/15/2018 11:20 AM PDT) + + + | Narrative | Performed At | + + + | Diane Sarabia Manager In Training 08/15/2018 11:06 Please | | | see provider's progress note for EKG interpretation. | | + + + ECG - EXTERNAL SCAN (08/15/2018 12:00 AM PDT) + + + | [...] Pacemaker - Medtronic - ADDRL1 Enrique - SN: [id number] Implanted 02/27/2012 Cardiac | | pacemaker in situ | + + | Atrial fibrillation, unspecified type (HCC) | + + | Hypertension Unspecified essential hypertension | + + | S/P AVR (aortic valve replacement) Heart valve replaced by other means | + + | Aortic valve replaced Heart valve replaced by other means | + + | Medication management Encounter for other specified aftercare | + + documented in this encounter
--- OUTSIDE RECORDS SUMMARY | ~2019-10-21 | XMS | Encounter Summary ---
Demographics + + + | Address | [address] | | | [place] [address] | + + + | Home Phone [...] + | Author | [facility] | | | and Jose Enriqueana | + + + | Organization | [facility] | [...] [address] | | | [place] | | [address] [place] | | | | | [address] | | + + + + + | Rickey Bui | ECON | [address] [place], [place] | | | | | [address] | | + + + + + Care Team Providers + +------+ + | Care Human Geography Instructor Name | Role | Phone | + [...] | +--------+ + + + + | 01/05/ | Telephone | JENNIE SIDDIQUI | Avinash Billingsley, | Device Check | | 2015 | | [facility]OLOGY [facility] | Photographer Motion Picture | (Remote) (Due | | | | [address] | | today.) | | | | [address] [address] [place] | | | | | | [address] | | | | | | [phone] | | | +--------+ + + + [...] [place] | | | | | | [address] | | | | | | | | +--------+---------+ + + + documented as of this encounter Visit Diagnoses Not on filedocumented in this encounter"
--- OUTSIDE RECORDS SUMMARY | ~2019-10-21 | XMS | Encounter Summary ---
Demographics + + + | Address | [address] | | | [place] [address] | + + + | Home Phone [...] [address] | | | [place] | | [address], [place] | | | | | [address] | | + + + + + | Rickey Bui | ECON | [address] [place], [place] | | | | | [address] | | + + + + + Care Team Providers + +------+ + | Care Player Development Manager Name | Role | Phone | [...] 02/18/ | Implant | JENNIE SIDDIQUI | [place] | Cardiac pacemaker in | | 2013 | Monitor | CARDIOLOGY [facility] | J, Technologist | situ (Primary Dx); | | | | [address] | | Atrial fibrillation | | | | [address] [place] [place] | | ([facility]) | | | | [address] | | | | | | [phone] | | | +--------+ + + + [...] | | | | | | [place], [place] | | | | | | [address] | | | | | | | | +--------+---------+ + + + documented as of this encounter Procedures + +--------+ + + + | Procedure Name | Priori | Date/Time | Associated Diagnosis | Comments | | | ty | | | | + +--------+ + + + | DEVICE INTERROGATION | Routin | 01/20/2014 | Cardiac pacemaker | Results for this | | | e | 10:52 AM | in situ Atrial | procedure are in the | | | | PDT | fibrillation (HCC) | results section. | + +--------+ + + + documented in this encounter Results Device Interrogation (01/20/2014 10:52 AM PDT) + + + | Narrative | Performed At | + + + | [facility] | | | Angelo [place] 01/20/2014 10:52 PATIENT NAME: Prabhjot Lee | | | [facility] 1945: AGE: 68 y.o. Remote | | | Pacemaker Evaluation Report January 02, 2014 Reason for evaluation: | | | routineIndication for pacemaker: ICD-9-CM 1. Cardiac pacemaker in | | | situ V45.01 Device Interrogation 2. Atrial fibrillation (HCC) 427.31 | | | Device Interrogation Remotely captured device [...] and programming parameters were reviewed. Settings Mode: | | | AAIR+Atrial Output: 1.5V @ 0.4msVentricular Output: 2V @ 0.4ms Data | | | Presenting rhythm is Atrial Flutter with IT APPLICATIONS DEVELOPER/VS. Frequent blanked | | | flutter waves are noted (blanked flutter search is On). AP 15.7%. | | | IT APPLICATIONS DEVELOPER 67.9%. Heart rate histograms appear appropriate. Battery | | | status: satisfactory. Voltage: 2.79 V. Estimated remaining longevity: | | | 11 years. Lead impedances appear within normal limits.Events noted: | | | 49,812 MS for 91.1% of time. 9,615 AHR's, longest for 12:13:24 | | | hours. On anticoagulation.Device function appears appropriate.Remote | | | follow-up in [address] Joel Moise MD has supervised and | | | interpreted this remote. | | | | | |Settings | | | | | |Mode: AAIR+ | | |Atrial Output: 1.5V @ 0.4ms | | |Ventricular Output: 2V @ 0.4ms | | | | | |Data | | | | | |Presenting rhythm is Atrial Flutter with IT APPLICATIONS DEVELOPER/VS. Frequent blanked | | |flutter waves are noted (blanked flutter search is On). AP | | |15.7%. IT APPLICATIONS DEVELOPER 67.9%. Heart rate histograms appear appropriate. | | |Battery status: satisfactory. Voltage: 2.79 V. Estimated | | |remaining longevity: 11 years. Lead impedances appear within | | |normal limits. | | |Events noted: 49,812 MS for 91.1% of time. 9,615 AHR's, longest | | |for 12:13:24 hours. On anticoagulation. | | |Device function appears appropriate. | | |Remote follow-up in 3 months. | | |Dr. Joel Moise MD has supervised and interpreted this | | |remote. | | | | | + + + + + | Procedure Note | + + | [place] Technologist - 01/02/2014 11:50 AM PDT Formatting of this note | | might be different from the original.PATIENT NAME: Prabhjot Bui : | | 1945: AGE: 68 y.o.Remote Pacemaker Evaluation [id number] | | for evaluation: routineIndication for pacemaker: ICD-9-CM 1. Cardiac pacemaker in situ | | V45.01 Device Interrogation 2. Atrial fibrillation (HCC) 427.31 Device Interrogation | | Remotely captured device data was reviewed for pacemaker parameters, battery status, | | percentage of pacing and significant arrhythmias. Heart rate histograms were evaluated | | for adequate heart rate response and any alerts reviewed. Pacing lead impedances were | | reviewed for any significant changes. Final pacing outputs and programming parameters | | were reviewed.SettingsMode: AAIR+Atrial Output: 1.5V @ 0.4msVentricular Output: 2V @ | | 0.4msDataPresenting rhythm is Atrial Flutter with IT APPLICATIONS DEVELOPER/VS. Frequent blanked flutter waves | | are noted (blanked flutter search is On). AP 15.7%. IT APPLICATIONS DEVELOPER 67.9%. Heart rate histograms | | appear appropriate. Battery status: satisfactory. Voltage: 2.79 V. Estimated remaining | | longevity: 11 years. Lead impedances appear within normal limits.Events noted: 49,812 | | MS for 91.1% of time. 9,615 AHR's, longest for 12:13:24 hours. On | | anticoagulation.Device function appears appropriate.Remote follow-up in 3 months. | | Joel Moise MD has supervised and interpreted [...] | |Presenting rhythm is Atrial Flutter with IT APPLICATIONS DEVELOPER/VS. Frequent blanked flutter waves are noted ( blanked flutter search is On). AP 15.7%. IT APPLICATIONS DEVELOPER 67.9%. Heart rate histograms appear appropria te. Battery status: satisfactory. | |Voltage: 2.79 V. Estimated remaining longevity: 11 years. Lead impedances appear within no rmal limits. | |Events noted: 49,812 MS for 91.1% of time. 9,615 AHR's, longest for 12:13:24 hours. On an ticoagulation. | |Device function appears appropriate. | |Remote follow-up in 3 months. | |Dr. Joel Moise MD has supervised and interpreted this remote. | + + documented in this encounter Visit Diagnoses + + | Diagnosis | + + | Cardiac pacemaker in situ - Primary | + + | Atrial fibrillation (HCC) Atrial fibrillation | + + documented in this encounter"
--- OUTSIDE RECORDS SUMMARY | ~2019-10-21 | XMS | Encounter Summary ---
Demographics + + + | Address | [address] | | | [place] [address] | + + + | Home Phone [...] | Author | [facility] | | | and Jose Enriqueana | + + + | Organization | [facility] | | | and Jose Enriqueana | + + + | Address | Unknown | + + + | Phone | Unavailable | + + + Support + + + + + | Name | Relationship | Address | Phone | + + + + + | Sharlene Lagunas | ECON | [address] | | | [address] | | [address], [place] | | | | | [address] | | + + + + + | Rickey Bui | ECON | [address] [place], [place] | | | | | [address] | | + + + + + Care Team Providers + +------+ + | Care Commissioner Of Conciliation Name | Role | Phone | + [...] Dx); | | | | [address] [place], [place] | | Cardiac pacemaker in | | | | [address] | | situ | | | | [phone] | | | +--------+ + + + [...] patient who immediately befor e is 100% STAVE AND BOLT EQUALIZER and immediately after 100 % V paced. [...] | | | | | [place] | | | | | | [id number] | | | | | | | [...] Data Presenting rhythm is atrial flutter with STAVE AND BOLT EQUALIZER, 88 | | | bpm. STAVE AND BOLT EQUALIZER 73%. Heart rate histogram appears appropriate with [...] | |Presenting rhythm is atrial flutter with STAVE AND BOLT EQUALIZER, 88 bpm. STAVE AND BOLT EQUALIZER 73%. | | |Heart rate histogram appears [...]
--- OUTSIDE RECORDS SUMMARY | ~2019-10-21 | XMS | Encounter Summary ---
Demographics + + + | Address | [address] | | | [place] [address] | + + + | Home Phone [...] Author | [facility] | | | and Jose Enriqueana | + + + | Organization | [facility] [...] [address] | | | [address] | | [place], [place] | | | | | [address] | | + + + + + | Rickey Bui | ECON | [address] [place], [place] | | | | | [address] | | + + + + + Care Team Providers + +------+ + | Care Quantitative Developer Name | Role | Phone | [...] pacemaker | | | | [address] [place], [place] | | (Primary Dx); | | | | [address] | | Sinoatrial node | | | | [phone] | | dysfunction ([facility]) | +--------+ + + + + Social [...] SERVIN | | | | | | [phone] | | | | | | | [...] Moise MD | |2. Sinoatrial node dysfunction ([facility]) I49.5 427.81 Device Interrogation | | | [...]
--- OUTSIDE RECORDS SUMMARY | ~2019-10-21 | XMS | Encounter Summary ---
Demographics + + + | Address | [address] | | | [place] [address] | + + + | Home Phone | | + + + | Preferred Language | Unknown | + + + | Marital Status | | + + + | Taoist Affiliation | [id number] | + + + | Race | Unknown | + + + | Ethnic Group | Unknown | + + + Author + + + | Author | [facility] | | | and Jose Enriqueana | + + + | Organization | [facility] | | | and Jose Enriqueana | + + + | Address | Unknown | + + + | Phone | Unavailable | + + + Support + + + + + | Name | Relationship | Address | Phone | + + + + + | Sharlene Lagunas | ECON | [address] | | | [address] | | [place], [place] | | | | | [address] | | + + + + + | Rickey Bui | ECON | [address] [place], [place] | | | | | [address] | | + + + + + Care Team Providers + +------+ + | Care Carpet Mechanic Name | Role | Phone | [...] Description | +--------+---------+ + + + | 02/09/ | Office | [facility] | Augusto Kunz | Sinoatrial node | | 2018 | Visit | [facility] | MD [address] | dysfunction ([facility]) DO | | | | [facility] [address] | [address] | NOT DELETE. | | | | [address] [place] | [place] [address] | (Primary Dx); | | | | [address] | [phone] | Pacemaker - | | | | [phone] | | Medtronic - [id number] | | | | | | Adapta - SN: | | | | | | [id number] Implanted | | | | | | 02/27/2012; Atrial | | | | | | fibrillation, | | | | | | unspecified type | | | | | | ([facility]); Aortic valve | | | | | | replaced | +--------+---------+ + + + Social History [...] + + + | Blood Pressure | 130/74 | 02/09/2018 8:23 AM | right | | | | PDT | | + + + + + | Pulse | 80 | 02/09/2018 8:23 AM | regular | | | | PDT [...] Weight | 108.9 kg (240 lb) | 02/09/2018 8:23 AM | | | | | PDT | | + + + + + | Height | 193 cm (6' 4") | 02/09/2018 8:23 AM | | | | | PDT | | + + + + + | Body Mass Index | 29.21 | 02/09/2018 8:23 AM | | | | | PDT | | + + + + + documented in this encounter Patient Instructions Patient Instructions Augusto Kunz MD - 02/09/2018 8:20 AM PDTIncrease Toprol Xl 50 mg twice daily to improve rate control Pacer transmission in one month and again in 2 months to ck on Heart rate control See me in 6 months Magdalena Jacob RN will review MyChart with you and re sign documented in this encounter Progress Notes Augusto Kunz MD - 02/09/2018 8:20 AM PDT PATIENT NAME: Prabhjot Bui : 1945: AGE: 72 y.o. Date of service: 02/09/2018 PRIMARY CARE: Tayo Robles DO CHIEF COMPLAINT: Chief Complaint Patient presents with Follow-up Atrial Fibrillation Outline of Cardiac Problems that were considered on 02/09/2018 to make treatment decisions 1. Sinoatrial node [...] moderate TR 29-34 mmHg 3. Echocardiogram 09/11/17 ([facility])- mild biatrial dilatation, EF 65-70%, mild alcon l regurgitation, normal functioning bioprosthetic aortic valve, mild to moderate tricuspid r egurgitation, PAP 35-40 mmHg 4. Hypertension HISTORY OF PRESENT ILLNESS 72 y.o. year old male seen in follow up for the problems listed below. The patient was last seen by KENNETH Arias on 08/11/17 with complaints of exertional fatigue and decreased en ergy levels with LE edema. His Lasix was increased to 2- mg Monday and and potassiu m were increased. Today, he states that he can walk a mile without stopping but does not do this often except when mowing his lawn. The patient does stay active, but reports that his s tamina "has been going downhill". He has been taking his Lasix once a week. Nevertheless, he remains quite active. CURRENT ASSESSMENT BY PROBLEM LIST 1. Sinoatrial node dysfunction (HCC) - Patient is V-paced 54% and therefore, persists. 2. Pacemaker - Medtronic - ADDRL1 Adapta - SN: [id number] Implanted 02/27/2012 - Function is appropriate. Batter life of 8 years. 3. Atrial fibrillation, unspecified type (HCC) Patient is anticoagulated with Warfarin and rate control should be improved. 4. Aortic valve replaced- Functioning well per echo through [facility] 5 Tricuspid regurgitation- Mild to moderate per echo through [facility] Plan: 1. Increase Toprol Xl 50 mg twice daily to improve rate control 2. Will do Pacer transmission in one month and again in 2 months to ck on Heart rate contro l 3. See me in 6 months FOLLOWUP No Follow-up on file. MEDICATION ADJUSTMENTS New Prescriptions No medications on file These Medications Have Changed Start Taking Instead of metoprolol succinate (TOPROL-XL) 50 mg 24 hr tablet metoprolol succinate (TOPROL-XL) 50 mg 24 hr tablet Dosage: Take 1 tablet by mouth 2 times daily. - Oral Dosage: TAKE 1 AND 1/2 TABLETS DAILY Reason for Change: Reorder Medications Discontinued During This Encounter Medication Reason cloNIDine (CATAPRES) 0.2 MG tablet Duplicate Entry digoxin (LANOXIN) 250 mcg tablet Duplicate Entry metoprolol succinate (TOPROL-XL) 50 mg 24 hr tablet Reorder NEW ORDERS No orders of the defined [...] Pulmonary vein isolation carried out at the [facility] on 09/01/01. Phlebitis Phlebitis - right [...] N/A; Surgeon: Rickey Galvan MD ; Location: [facility] ELECTROPHYSIOLOGY AORTIC ROOT REPLACEMENT AND REIMPLANTATION OF CORONARY ARTERIES 05/28/08 Dr. Kelsey ASCENDING AORTA REPLACEMENT 05/28/08 Dr. Kelsey ATRIAL ABLATION SURGERY 2002 ,2008 CARDIAC PACEMAKER PLACEMENT 02/27/12 MEDTRONIC CARDIOVERSION 06/19/00,11/24/00,07/25/01,10/18/01,12/26/02,12/02/04 CARDIOVERSION 03/07/13 CHOLECYSTECTOMY HIP JOINT REPLACEMENT Left 05/17/15 INGUINAL HERNIA REPAIR X2 SHOULDER SURGERY 05/28/13 right WRIST SURGERY left His family history includes Atrial Fibrillation in his mother; Colon cancer in his brother ; Hypertension in his mother and sister; Stroke (age of onset: 62) in his sister. He reports that he has never smoked. He has never used smokeless tobacco. He reports that he does not drink alcohol or use drugs. CURRENT MEDICATIONS Outpatient Encounter Prescriptions as of 02/09/2018 Medication Sig Dispense Refill anastrozole (ARIMIDEX) 1 [...] TWICE A DAY *ACTAVIS* 180 tablet 0 [DISCONTINUED] cloNIDine (CATAPRES) 0.2 MG tablet TAKE 1 TABLET TWICE A DAY *ACTAVIS M FR* 180 tablet 3 Coenzyme Q10 (CO Q-10) 100 MG CAPS Take 1 capsule by mouth Daily. Also has L-Ivonhk-Mao teine 250 mg & Pyrroloquinoline PQQ 10 mg DHEA 25 MG CAPS Take 25 mg by mouth Daily. (Patient taking differently: Take 25 mg by m outh 2 times daily.) digoxin (LANOXIN) 250 mcg tablet TAKE 1 TABLET DAILY 90 tablet 1 [DISCONTINUED] digoxin (LANOXIN) 250 mcg tablet TAKE 1 [...] times eduin y. 180 tablet 1 [DISCONTINUED] metoprolol succinate (TOPROL-XL) 50 mg 24 hr tablet TAKE 1 AND 1/2 TABLE TS DAILY 90 tablet 3 non-formulary medication Daily. Nerium po potassium chloride [...] facility-administered encounter medications on file as of 02/09/2018. ALLERGIES Allergies Allergen Reactions Flecainide Other (See Comments) AFTER 1ST ABLATION, HAD LEG SWELLING, INCREASED HEART RATE Amoxicillin Rash ROS 12 point ROS was completed and is negative except for: fatigue, hearing loss, ankle edema, shortness of breath, PHYSICAL EXAM BP 130/74 Comment: right | Pulse 80 Comment: regular | Ht 1.93 m (6' 4") | Wt 108.9 kg (24 0 lb) | BMI 29.21 kg/m Body mass index is 29.21 kg/m. GENERAL: Pleasant appearing in no apparent distress HEENT: Conjunctivae and lids are normal in appearance. Pharynx: benign Eyes: Extraocular movements intact. NECK: Supple, JVD 2 cm above the sternal angle, no HJR, Carotids are 2+ and brisk bilatera lly without bruits. LUNGS: Full expansion. Clear to auscultation. CHEST: pacemaker site well healed on the left CARDIAC: PMI is non-displaced. Regular rate and rhythm with S1 normal, S2 normal. 2/6 ea rly peaking systolic ejection murmur at te 2 LICS murmurs. No rubs or gallops. Blood pressur es are equal in upper extremities. ABDOMEN: Soft, non-tender, nondistended with normal, active bowel sounds. Normal abdominal pulsation without bruit. EXTREMITIES: No clubbing, cyanosis, 2-3+ edema. PULSES: 1-2+ Posterior Tibialis NEUROLOGIC: Non-focal. Patient is oriented to time, place, and person. Normal affect. SKIN: No rashes or skin breakdown. No bruising. MUSCULOSKELETAL: Back - no CVA or paravertebral tenderness. EKG from 08/11/17: V-paced rate 72 bp Remote pacemaker evaluation from 01/10/18 Settings Mode: VVIR, 70 (130) Ventricular Output: 2.0V @ 0.4ms (adaptive) Data Presenting rhythm is atrial fibrillation/flutter with irregular MORTGAGE LOAN ORIGINATOR/VS. MORTGAGE LOAN ORIGINATOR 54.2%. On antic oagulation. Heart rate histograms appear somewhat broad with ~25% >110 bpm. Battery status: satisfactory. Voltage: 2.79 V. Estimated remaining longevity: 8 years. Emilee d impedance appears within normal limits. Events noted since 08/11/17: 2 VHR, 10-46 seconds, 180 bpm. EGMs are atrial only showing AT/AF, no ventricul ar EGMs. Device function appears appropriate. Consider changing the EGM storage to ventricular at t he next device check. Remote follow-up in 3 months. Supervising and interpreting physician for this remote, Augusto Kunz MD LABS Lab Results Component Value Date WBC [...] me. By signing my name below, I, Estrella Loco, attest that this documentation has been prepared under the direction and in the presence of Augusto Kunz MD. Electronically Signed: Itunujesu J. Olonade Rio. 02/09/2018. 11:13. Signed by: Augusto Kunz MD 02/09/2018, 11:13 Patient Care Team: Tayo Robles DO as PCP - General (Family Medicine - Sports Medicine) KENNETH Givens (Physician Manager Cosmetics) Augusto Kunz MD as Physician (Cardiology) documented in this encounter Plan of Treatment +--------+---------+ + + + | Date | Type | Specialty | Care Team | Description | +--------+---------+ + + + | 10/30/ | Office | Sleep Medicine | Rickey Zaragoza PA | | | 2019 | Visit | | [address] | | | | | | [place] | | | | | | [address] | | | | | | | | +--------+---------+ + + + documented as of this encounter Visit Diagnoses + + | Diagnosis | + + | Sinoatrial node dysfunction (HCC) DO NOT DELETE. - Primary Sinoatrial node | | dysfunction | + + | Pacemaker - Medtronic - ADDRL1 Adapta - SN: [id number] Implanted 02/27/2012 Cardiac | | pacemaker in situ | + + | Atrial fibrillation, unspecified type (HCC) | + + | Aortic valve replaced Heart valve replaced by other means | + + documented in this encounter
--- OUTSIDE RECORDS SUMMARY | ~2019-10-21 | XMS | Encounter Summary ---
Demographics + + + | Address | [address] | | | [place] [address] | + + + | Home Phone [...] Author | [facility] | | | and Jose Enriqueana | + + + | Organization | [facility] | | | and Jose Enriqueana | + + + | Address | Unknown | + + + | Phone | Unavailable | + + + Support + + + + + | Name | Relationship | Address | Phone | + + + + + | Sharlene Lagunas | ECON | [address] | | | [address] | | [address] | | | | | [address] | | + + + + + | iRckey Bui | ECON | [address] [place], [place] | | | | | [address] | | + + + + + Care Team Providers + +------+ + | Care Trade Show Manager Name | Role | Phone | [...] Check | | 2014 | | [facility] [place] | RN | (Remote) | | | | [address], | | | | | | [address] [place] | | | | | | [address] | | | | | | [phone] | | | +--------+ + + + [...]
--- OUTSIDE RECORDS SUMMARY | ~2019-10-21 | XMS | Encounter Summary ---
Demographics + + + | Address | [address] | | | [place] [address] | + + + | Home Phone [...] | [facility] | | | and Jose Enriqueana | + + + | Organization | [facility] | | | [...] [address] | | | [address] | | [address], [place] | | | | | [address] | | + + + + + | Rickey Bui | ECON | [address] [place], [place] | | | | | [address] | | + + + + + Care Team Providers + +------+ + | Care Field Health Officer Name | Role | Phone | + [...] | JENNIE SIDDIQUI | Beata Dorado, | Cardiac pacemaker in | | 2013 | Monitor | [facility] [place] | RN | situ (Primary Dx); | | | | [address] | | Atrial fibrillation | | | | [address] [place] | | ([facility]) | | | | [address] | | | | | | [phone] | | | +--------+ + + + [...] | | | | | | [place], [place] | | | | | | [address] | | | | | | | [...] for this | | | e | 8:23 PM | in situ Atrial | procedure are in the | | | | PST | fibrillation (HCC) | results section. | + +--------+ + + + documented in this encounter Results Device Interrogation (03/23/2014 8:23 PM PST) + + + | Narrative | Performed At | + + + | Beata Fernandez | | | ANASTASIYA Dorado 03/23/2014 20:23 PATIENT NAME: Prabhjot Lee | | | Hao : 1945: AGE: 68 y.o. Remote | | | Pacemaker Evaluation Report December 17, 2013 Reason for evaluation: | | | requested to check atrial fibrillation status 1 month post-office | | | checkIndication for pacemaker: ICD-9-CM 1. Cardiac pacemaker in [...] Data | | | Presenting rhythm is atrial flutter, SAWMILL SUPERVISOR/VS. Frequent blanked flutter | | | waves are noted (blanked flutter search is ON). AP 15.6%. SAWMILL SUPERVISOR | | | 70.6%. Heart rate histograms show increased binning at 90 to 110 bpm | | | for both A and V. Atrial histogram shows sensed atrial beats in the | | | 90 and 100 bpm rate bins, possibly a result of blanked flutter waves. | | | Battery status: satisfactory. Voltage: 2.80V. Estimated remaining | | | longevity: 11 years. Lead impedances appear within normal | | | limits.Events noted since 11/13/13: 31,764 MS (16,353 new since | | | last remote on 11/26/13), longest 12:13:24 hours, total 93.2% of time | | | (possibly 100% - patient has frequent blanked flutter). On | | | anticoagulation.Device function appears appropriate.Remote follow-up | | | per schedule.Findings are similar to 11/28/13 remote. Per . | | | Jose Maria's review of that remote, patient is to be contacted for | | | cardioversion.Dr. Joel Moise MD has supervised and | | | interpreted this remote. | | | | | |Data | | | | | |Presenting rhythm is atrial flutter, SAWMILL SUPERVISOR/VS. Frequent blanked | | |flutter waves are noted (blanked flutter search is ON). AP | | |15.6%. SAWMILL SUPERVISOR 70.6%. Heart rate histograms show increased binning | | |at 90 to 110 bpm for both A and V. Atrial histogram shows sensed | | |atrial beats in the 90 and 100 bpm rate bins, possibly a result | | |of blanked flutter waves. | | |Battery status: satisfactory. Voltage: 2.80V. Estimated remaining | | |longevity: 11 years. Lead impedances appear within normal | | |limits. | | |Events noted since 11/13/13: | | | 31,764 MS (16,353 new since last remote on 11/26/13), longest | | |12:13:24 hours, total 93.2% of time (possibly 100% - patient has | | |frequent blanked flutter). On anticoagulation. | | |Device function appears appropriate. | | |Remote follow-up per schedule. | | |Findings are similar to 11/28/[address] Moise's | | |review of that remote, patient is to be contacted for | | |cardioversion. | | |Dr. Joel Moise MD has supervised and interpreted this | | |remote. | | | | | | | | | | | | | | | | | | | | + + + + + | Procedure Note | + + | Beata Dorado RN - 12/17/2013 2:18 PM PDT Formatting of this note might be | | different from the original.PATIENT NAME: Prabhjot Bui : 1945: | | AGE: 68 y.o.Remote Pacemaker Evaluation ReportJuly 2013Reason for evaluation: | | requested to check atrial fibrillation status 1 month post-office checkIndication for | | pacemaker: ICD-9-CM 1. Cardiac pacemaker in situ V45.01 Device Interrogation 2. Atrial | | fibrillation (HCC) 427.31 Device Interrogation Remotely captured device data was | | reviewed for pacemaker parameters, battery status, percentage of pacing and significant | | arrhythmias. Heart rate histograms were evaluated for adequate heart rate response and | | any alerts reviewed. Pacing lead impedances were reviewed for any significant changes. | | Final pacing outputs and programming parameters were reviewed.SettingsMode: AAIR+ | | 75-130Atrial Output: 1.5V @ 0.4msVentricular Output: 2V @ 0.4msDataPresenting rhythm is | | atrial flutter, SAWMILL SUPERVISOR/VS. Frequent blanked flutter waves are noted (blanked flutter search | | is ON). AP 15.6%. SAWMILL SUPERVISOR 70.6%. Heart rate histograms show increased binning at 90 to | | 110 bpm for both A and V. Atrial histogram shows sensed atrial beats in the 90 and 100 | | bpm rate bins, possibly a result of blanked flutter waves. Battery status: satisfactory. | | Voltage: 2.80V. Estimated remaining longevity: 11 years. Lead impedances appear within | | normal limits.Events noted since 11/13/13: 31,764 MS (16,353 new since last remote | | on 11/26/13), longest 12:13:24 hours, total 93.2% of time (possibly 100% - patient has | | frequent blanked flutter). On anticoagulation.Device function appears | | appropriate.Remote follow-up per schedule.Findings are similar to 11/28/13 remote. Per | | Dr. Moise's review of that remote, patient is to be contacted for cardioversion.Dr. | | Joel Moise MD has supervised and interpreted this remote. | |Atrial Output: 1.5V @ 0.4ms | |Ventricular Output: 2V @ 0.4ms | | | |Data | | | |Presenting rhythm is atrial flutter, SAWMILL SUPERVISOR/VS. Frequent blanked flutter waves are noted (ml law flutter search is ON). AP 15.6%. SAWMILL SUPERVISOR 70.6%. Heart rate histograms show increased binni ng at 90 to 110 bpm for both A | |and V. Atrial histogram shows sensed atrial beats in the 90 and 100 bpm rate bins, possibly a result of blanked flutter waves. | |Battery status: satisfactory. Voltage: 2.80V. Estimated remaining longevity: 11 years. Emilee d impedances appear within normal limits. | |Events noted since 11/13/13: | | 31,764 MS (16,353 new since last remote on 11/26/13), longest 12:13:24 hours, total 93.2 % of time (possibly 100% - patient has frequent blanked flutter). On anticoagulation. | |Device function appears appropriate. | |Remote follow-up per schedule. | |Findings are similar to 11/28/[address] Moise's review of that remote, patient is to be contacted for cardioversion. | |Dr. Joel Moise MD has supervised and interpreted this remote. | + + documented in this encounter Visit Diagnoses + + | Diagnosis | + + | Cardiac pacemaker in situ - Primary | + + | Atrial fibrillation (HCC) Atrial fibrillation | + + documented in this encounter"
--- OUTSIDE RECORDS SUMMARY | ~2019-10-21 | XMS | Encounter Summary ---
Demographics + + + | Address | [address] | | | [place] [address] | + + + | Home Phone [...] [facility] | | | and Jose Enriqueana | + + + | Organization | [facility] | | | and Jose Enriqueana | + + + | Address | Unknown | + + + | Phone | Unavailable | + + + Support + + + + + | Name | Relationship | Address | Phone | + + + + + | Sharlene Lagunas | ECON | [address] | | | [address] | | [address], [place] | | | | | [address] | | + + + + + | Rickey Bui | ECON | [address] [place], [place] | | | | | [address] | | + + + + + Care Team Providers + +------+ + | Care Yarn Examiner Skeins Name | Role | Phone | + [...] Description | +--------+--------+ + + + | 02/17/ | Refill | JENNIE S[facility]DIQUI | Joel Moise | Medication Refill | | 2019 | | [facility] | MD Conchis [address] [place] [address] | | | | | [address] | [place] [address] | | | | | [address] | [place] [address] | | | | | [address] | [phone] | | | | | [phone] | | | +--------+--------+ + + + [...]
--- OUTSIDE RECORDS SUMMARY | ~2019-10-21 | XMS | Encounter Summary ---
Demographics + + + | Address | [address] | | | [place] [address] | + + + | Home Phone [...] | [facility] | | | and Jose Enriqueana | + + + | Organization | [facility] | | [...] [address] | | | [address] | | [address], [place] | | | | | [address] | | + + + + + | Rickey Bui | ECON | [address] [place], [place] | | | | | [address] | | + + + + + Care Team Providers + +------+ + | Care Labor Utilization Superintendent Name | Role | Phone | + [...] | | 2015 | Visit | [facility] | [address] | fibrillation/atrial | | | | [address] | [address] [place], | flutter | | | | [address] | [place] [address] | | | | | [address] | [phone] | | | | | [phone] | | | +--------+---------+ + + + [...] Galvan MD - 06/30/2014 1:55 PM PST [facility] [address] [place] [address] Patient Name: Prabhjot Bui Date: 1945 Date [...] and underwent prior ablation pr ocedure in [place]. Years later, the patient developed significant aortic [...] inferio r leads which are chronic. Prolonged [place] interval OTHER OBJECTIVE DATA: Patient has remained [...] were not detected in the editing p Picklifyess. Should you have any questions or concerns, [...] [place] | | | | | | [id number] | | | | | | | [...]
--- OUTSIDE RECORDS SUMMARY | ~2019-10-21 | XMS | Encounter Summary ---
Demographics + + + | Address | [address] | | | [place] [address] | + + + | Home Phone [...] | Author | [facility] | | | and Jose Enriqueana | + + + | Organization | [facility] | | | [...] [address] | | | [address] | | [address], [place] | | | | | [address] | | + + + + + | Rickey Bui | ECON | [address] [place], [place] | | | | | [address] | | + + + + + Care Team Providers + +------+ + | Care Custodial Operations Manager Name | Role | Phone | [...] Refill | | 2013 | | [facility] | MD Conchis [address] [place] [address] | | | | | [facility] [address] | [facility] [address] | | | | | [place] [address] [address] | [place] [address] | | | | | [address] | [phone] | | | | | [phone] | | | +--------+--------+ + + + [...] 2019 | Visit | | [address] | | | | | | [place] | | | | | | [address] | | | | | | | | +--------+---------+ + + + documented as of this encounter Visit Diagnoses + + | Diagnosis | + + | Hypertension - Primary Unspecified essential hypertension | + + documented in this encounter"
--- OUTSIDE RECORDS SUMMARY | ~2019-10-21 | XMS | Encounter Summary ---
Demographics + + + | Address | [address] | | | [place] [address] | + + + | Home Phone [...] + | Author | [facility] | | | and Jose Enriqueana | + + + | Organization | [facility] [...] [address] | | | [place] | | [place], [place] | | | | | [address] | | + + + + + | Rickey Bui | ECON | [address] [place], [place] | | | | | [address] | | + + + + + Care Team Providers + +------+ + | Care Medical Illustrator Name | Role | Phone | + [...] Check | | 2019 | | [facility] | MD [address] | (Remote) (reminder) | | | | [facility] [address] | [address]VE [address] | | | | | [facility] [address] [place], [place] | [place] [address] | | | | | [address] | [phone] | | | | | [phone] | | | +--------+ + + + [...]
--- OUTSIDE RECORDS SUMMARY | ~2019-10-21 | XMS | Encounter Summary ---
Demographics + + + | Address | [address] | | | [place] [address] | + + + | Home Phone | | + + + | Preferred Language | Unknown | + + + | Marital Status | | + + + | Orthodoxy Affiliation | 1009 | + + + | Race | Unknown | + + + | Ethnic Group | Unknown | + + + Author + + + | Author | [facility] | | | and Jose Enriqueana | + + + | Organization | [facility] | | | and Jose Enriqueana | + + + | Address | Unknown | + + + | Phone | Unavailable | + + + Support + + + + + | Name | Relationship | Address | Phone | + + + + + | Sharlene Lagunas | ECON | [address] | | | [place] | | [place], [place] | | | | | [address] | | + + + + + | Rickey Bui | ECON | [address] [place], [place] | | | | | [address] | | + + + + + Care Team Providers + +------+ + | Care Fuel Conversion Technician Name | Role | Phone | [...] Description | +--------+--------+ + + + | 12/23/ | Refill | JENNIE SIDDIQUI | Joel Moise | Medication Refill | | 2016 | | [facility]OLOGY [facility] | MD [address]ch[address] [place] [address] | | | | | [facility] [address] | [facility] [address] | | | | | [place] [address] [place] [address] | [place] [address] | | | | | [address] | [phone] | | | | | [phone] | | | +--------+--------+ + + + [...]
--- OUTSIDE RECORDS SUMMARY | ~2019-10-21 | XMS | Encounter Summary ---
Demographics + + + | Address | [address] | | | [place] [address] | + + + | Home Phone [...] | Author | [facility] | | | and Jose Enriqueana | + + + | Organization | [facility] | | | and Jose Enriqueana | + + + | Address | Unknown | + + + | Phone | Unavailable | + + + Support + + + + + | Name | Relationship | Address | Phone | + + + + + | Sharlene Lagunas | ECON | [address] | | | [place] | | [place], [place] | | | | | [address] | | + + + + + | Rickey Bui | ECON | [address] [place], [place] | | | | | [address] | | + + + + + Care Team Providers + +------+ + | Care Borematic Machine Operator Name | Role | Phone [...] | | | 2011 | | [facility] | MD [address] | | | | | [address] | [address] | | | | | [facility] [address] | [place] [address] | | | | | [address] | [phone] | | | | | [phone] | | | +--------+ + + + [...] SERVIN | | | | | | [address] | | | | | | | [...]
--- OUTSIDE RECORDS SUMMARY | ~2019-10-21 | XMS | Encounter Summary ---
Demographics + + + | Address | [address] | | | [place] [address] | + + + | Home Phone [...] Author | [facility] | | | and Jose Enriqueana | + + + | Organization | [facility] [...] [address] | | | [place] | | [place], [place] | | | | | [address] | | + + + + + | Rickey Bui | ECON | [address] [place], [place] | | | | | [address] | | + + + + + Care Team Providers + +------+ + | Care Veterinary Virus Serum Inspector Name | Role | Phone | + +------+ + PCP | Unavailable | + +------+ + Encounter Details +--------+ + + + + | Date | Type | Department | Care Team | Description | +--------+ + + + + | 09/28/ | Hospital | [facility] | | | | 1998 | Encounter | MED CTR GENERIC OP | | | | | | CONV DEPT [address] | | | | | | [place], | | | | | | [place] [address] | | | | | | [phone] | | | +--------+ + + + [...] SERVIN | | | | | | [address] | | | | | | | | +--------+---------+ + + + documented as of this encounter Visit Diagnoses Not on filedocumented in this encounter"
--- OUTSIDE RECORDS SUMMARY | ~2019-10-21 | XMS | Encounter Summary ---
Demographics + + + | Address | [address] | | | [place] [address] | + + + | Home Phone [...] | Author | [facility] | | | and Jose Enriqueana | + + + | Organization | [facility] | | | and Jose Enriqueana | + + + | Address | Unknown | + + + | Phone | Unavailable | + + + Support + + + + + | Name | Relationship | Address | Phone | + + + + + | Sharlene Lagunas | ECON | [address] | | | [place] | | [place], [place] | | | | | [address] | | + + + + + | Rickey Bui | ECON | [address] [place], [place] | | | | | [address] | | + + + + + Care Team Providers + +------+ + | Care Kaiako Kura Kaupapa Maori Name | Role | Phone | + [...] 2012 | | Conversion Location | MD [address] | (Primary Dx); | | | | [address] | [address]VE [address] | Hyperthyroidism | | | | [place], [place] | [place] [address] | | | | | [address] | [phone] | | | | | [phone] | | | +--------+ + + + [...] SERVIN | | | | | | [id number] | | | | | | | [...]
--- OUTSIDE RECORDS SUMMARY | ~2019-10-21 | XMS | Encounter Summary ---
Demographics + + + | Address | [address] | | | [place] [address] | + + + | Home Phone | | + + + | Preferred Language | Unknown | + + + | Marital Status | | + + + | Presybeterian Affiliation | 1009 | + + + | Race | Unknown | + + + | Ethnic Group | Unknown | + + + Author + + + | Author | [facility] | | | and Jose Enriqueana | + + + | Organization | [facility] | | | and Jose Enriqueana | + + + | Address | Unknown | + + + | Phone | Unavailable | + + + Support + + + + + | Name | Relationship | Address | Phone | + + + + + | Sharlene Lagunas | ECON | [address] | | | [address] | | [address], [place] | | | | | [address] | | + + + + + | Rickey Bui | ECON | [address] [place], [place] | | | | | [address] | | + + + + + Care Team Providers + +------+ + | Care High School Math Teacher Name | Role | Phone | [...] + + | 02/18/ | Implant | [facility] | Damaris Preciado, | Sinoatrial node | | 2019 | Monitor | [facility] | RN | dysfunction (HCC) | | | | [address] | | (Primary Dx); | | | | Y[address] B32[address] A ARTUR | | Cardiac pacemaker in | | | | [place] | | situ | | | | [address] | | | | | | [phone] | | | +--------+ + + + [...] SERVIN | | | | | | [id number] | | | | | | | | +--------+---------+ + + + documented as of this encounter Procedures + +--------+ + + + | Procedure Name | Priori | Date/Time | Associated Diagnosis | Comments | | | ty | | | | + +--------+ + + + | DEVICE | Routin | 02/18/2019 | Sinoatrial node | Results for this | | INTERROGATION- | e | 11:59 PM | dysfunction (HCC) | procedure are in the | | REMOTE | | PDT | Cardiac pacemaker in | results section. | | | | | situ | | + +--------+ + + + documented in this encounter Results Device Interrogation - Remote (02/18/2019 11:59 PM PDT) + + + | Narrative | Performed At | + + + | Damaris Tolbert | [facility] | | ANASTASIYA Preciado 02/18/2019 20:39PATIENT NAME: Prabhjot Lee | | | [place] : 1945: AGE: 73 y.o.Remote | | | Pacemaker Evaluation Report January 08, 2019 Reason for evaluation: | | | [...] Data Presenting rhythm is atrial flutter with INVESTIGATOR OPERATOR, | | | ~82 bpm. INVESTIGATOR OPERATOR 72.6%. Heart rate histogram appears appropriate. | | | Battery status: satisfactory. Voltage: 2.78 V. Estimated remaining | | | longevity: 6.5 years. Lead impedance appears within normal | | | limits.Events noted since 08/15/18: 1 HVR episode detected on | | | 10/18/18 for 4 seconds. EGM shows sudden onset of fast regular and | | | irregular 13 VS beats, suggestive of RVR vs NSVT, average V-rate ~180 | | | bpm. On anticoagulation.Device function appears appropriate. Remote | | | follow-up in 3 months. Supervising and interpreting physician for | | | this remote,Joel Moise MD | | |Settings | | | | | |Mode: VVIR, 70 (130) | | |Ventricular Output: 2.0V @ 0.4ms (adaptive) | | | | | |Data | | | | | |Presenting rhythm is atrial flutter with INVESTIGATOR OPERATOR, ~82 bpm. INVESTIGATOR OPERATOR 72.6%. | | |Heart rate histogram appears appropriate. | | |Battery status: satisfactory. Voltage: 2.78 V. Estimated | | |remaining longevity: 6.5 years. Lead impedance appears within | | |normal limits. | | |Events noted since 08/15/18: | | | 1 HVR episode detected on 10/18/18 for 4 seconds. EGM shows | | |sudden onset of fast regular and irregular 13 VS beats, | | |suggestive of RVR vs NSVT, average V-rate ~180 bpm. On | | |anticoagulation. | | |Device [...]
--- OUTSIDE RECORDS SUMMARY | ~2019-10-21 | XMS | Encounter Summary ---
Demographics + + + | Address | [address] | | | [place] [address] | + + + | Home Phone [...] Author | [facility] | | | and Jose Enriqueana | + + + | Organization | [facility] | [...] [address] | | | [place] | | [place], [place] | | | | | [address] | | + + + + + | Rickey Bui | ECON | [address] [place], [place] | | | | | [address] | | + + + + + Care Team Providers + +------+ + | Care Outside Operator Name | Role | Phone | + +------+ + | Tayo Robles DO | PCP | | + +------+ + Reason for Visit +--------+ + | Reason | Comments | +--------+ + | Apnea | | +--------+ + Encounter Details +--------+---------+ + + + | Date | Type | Department | Care Team | Description | +--------+---------+ + + + | 11/19/ | Office | [facility] | Rickey Zaragoza PA | ABAD on CPAP (Primary | | 2015 | Visit | SLEEP DISORDER [address] | [address] | Dx); Poor sleep | | | | [address] [place] | [place] | hygiene | | | | [place] [address] | [id number] | | | | | [phone] | | | +--------+---------+ + + + [...] + + + | Blood Pressure | 108/68 | 11/19/2014 10:18 AM | | | | | PDT | | + + + + + | Pulse | 84 | 11/19/2014 10:18 AM | | | | | PDT | | + + + + + | Temperature | - | - | | + + + + + | Respiratory Rate | 16 | 11/19/2014 10:18 AM | | | | | PDT | | + + + + + | Oxygen Saturation | 97% | 11/19/2014 10:18 AM | | | | | PDT | | + + + + + | Inhaled Oxygen | - | - | | | Concentration | | | | + + + + + | Weight | 108.6 kg (239 lb 6.4 | 11/19/2014 10:18 AM | | | | oz) | PDT | | + + + + + | Height | - | - | | + + + + + | Body Mass Index | 34.35 | 10/14/2014 1:41 PM | | | | | PDT | | + + + + + documented in this encounter Progress Notes Rickey Zaragoza PA - 11/19/2014 10:07 AM PDT Subjective: Patient ID: Prabhjot Biu is a 68 y.o. male. HPI last office visit was: 06/05/2014 date of polysomnography: 03/01/2004 AHI: 14.0 (35.3 during REM) O2%: 90% Machine type: ResMed S9 with full face mask obtained from: [facility] in [place] pressure is: 6-16 cm Median: 6.7 cm 95%: 9.2 cm maxium: 10.3 cm Nights using CPAP: 361/365 154/162 175/182 % of nights >4 hours: 86% 50% 31% Average usage (all nights): 5:24 3:55 3:13 average usage (nights used): 5:28 4:07 3:21 AHI: 2.7 Prabhjot comes in for CPAP compliance. He continues to wear his CPAP regularly, but has strugg led severely with wearing it for the duration of the night. He is starting the night with h is CPAP, then wakes later in the night and takes off his mask before going back to sleep. S ome nights he gets up to read his bible. When he gets sleepy enough he returns to bed. He is napping less often during the day, but continues to do so on most days. He is often taking off his mask during the night. The times he takes off his mask early in the night has been because he cannot breathe through his nose. He uses a full face mask, b ut still struggles with having to breathe through his mouth. He has an appointment with ENT in the next month. I have discussed the download in detail. This shows that his sleep apnea is well controlle d, with an AHI of 2.7. It also shows that his leaks are severe. Review of Systems Objective: Physical Exam Assessment: Problem # 1: OBSTRUCTIVE SLEEP APNEA (ICD-327.23) This is well controlled with CPAP. His CPAP compliance is going well, but the times he is not using his CPAP is because of his congestion. Problem #2: POOR SLEEP HYGIENE (307.49) He continues to nap most days without his CPAP and often wakes during the night to read. Plan: 1. He is to continue with CPAP indefinitely. I have written him a prescription for flutic asone nasal spray to help with his congestion. He has an appointment with ENT in the next [facility]. 2. He is to do the following: [...] months, sooner prn. Thirty minutes were spent cyjh-og-zams, wi th the majority of time spent [...] 2020 | Visit | | [address] | | | | | | [place] | | | | | | [phone] | | | | | | | [...]
--- OUTSIDE RECORDS SUMMARY | ~2019-10-21 | XMS | Encounter Summary ---
Demographics + + + | Address | [address] | | | [place] [address] | + + + | Home Phone | | + + + | Preferred Language | Unknown | + + + | Marital Status | | + + + | Christian Affiliation | 1009 | + + + | Race | Unknown | + + + | Ethnic Group | Unknown | + + + Author + + + | Author | [facility] | | | and Jose Enriqueana | + + + | Organization | [facility] | | | and Jose Enriqueana | + + + | Address | Unknown | + + + | Phone | Unavailable | + + + Support + + + + + | Name | Relationship | Address | Phone | + + + + + | Sharlene Lagunas | ECON | [address] | | | [place] | | [place], [place] | | | | | [address] | | + + + + + | Rickey Bui | ECON | [address] [place], [place] | | | | | [address] | | + + + + + Care Team Providers + +------+ + | Care Director Security Risk Management Name | Role | Phone | + +------+ + PCP | Unavailable | + +------+ + Encounter Details +--------+ + + + + | Date | Type | Department | Care Team | Description | +--------+ + + + + | 03/20/ | Hospital | [facility] | | | | 1998 | Encounter | MED CTR ICU [address] | | | | | | [place], | | | | | | [place] [address] | | | | | | [phone] | | | +--------+ + + + [...] SERVIN | | | | | | [address] | | | | | | | | +--------+---------+ + + + documented as of this encounter Visit Diagnoses Not on filedocumented in this encounter"
--- OUTSIDE RECORDS SUMMARY | ~2019-10-21 | XMS | Encounter Summary ---
Demographics + + + | Address | [address] | | | [place] [address] | + + + | Home Phone [...] Author | [facility] | | | and Jose Enriqueana | + + + | Organization | [facility] | [...] [address] | | | [place] | | [address], [place] | | | | | [address] | | + + + + + | Rickey Bui | ECON | [address] [place], [place] | | | | | [address] | | + + + + + Care Team Providers + +------+ + | Care Supervisor Waterproofing Name | Role | Phone | + [...] Check | | 2018 | | [facility] | Blaire, | (Remote) (Remote | | | | [address] | Technologist | reminder) | | | | [place] [address] [place] | | | | | | [address] | | | | | | [phone] | | | +--------+ + + + [...] SERVIN | | | | | | [id number] | | | | | | | | +--------+---------+ + + + documented as of this encounter Visit Diagnoses Not on filedocumented in this encounter"
--- OUTSIDE RECORDS SUMMARY | ~2019-10-21 | XMS | Encounter Summary ---
Demographics + + + | Address | [address] | | | [place] [address] | + + + | Home Phone [...] + | Author | [facility] | | | and Jose Enriqueana | + + + | Organization | [facility] | [...] [address] | | | [place] | | [place], [place] | | | | | [address] | | + + + + + | Rickey Bui | ECON | [address] [place], [place] | | | | | [address] | | + + + + + Care Team Providers + +------+ + | Care Apprise Counselor Name | Role | Phone | + [...] | +--------+ + + + + | 01/02/ | Telephone | JENNIE SIDDIQUI | Joel Moise | Device Check | | 2019 | | [facility] | MD [address] | (Remote) | | | | [facility] [address] | [place] [address] | | | | | [place] [address] [address] | [place] [address] | | | | | [address] | [phone] | | | | | [phone] | | | +--------+ + + + [...]
--- OUTSIDE RECORDS SUMMARY | ~2019-10-21 | XMS | Encounter Summary ---
Demographics + + + | Address | [address] | | | [place] [address] | + + + | Home Phone [...] | [facility] | | | and Jose Enriqueana | + + + | Organization | [facility] [...] [address] | | | [place] | | [place], [place] | | | | | [address] | | + + + + + | Rickey Bui | ECON | [address] [place], [place] | | | | | [address] | | + + + + + Care Team Providers + +------+ + | Care Historical Archeologist Name | Role | Phone | + [...] Imaging | | 2013 | | CARDIOLOGY [facility] | MD [address] | (Chest x-ray | | | | [address] | [address] | results) | | | | [place] [address] [address] | [place] [address] | | | | | [address] | [phone] | | | | | [phone] | | | +--------+ + + + [...] 2020 | Visit | | [address] | | | | | | [place] | | | | | | [id number] | | | | | | | | +--------+---------+ + + + documented as of this encounter Visit Diagnoses Not on filedocumented in this encounter"
--- OUTSIDE RECORDS SUMMARY | ~2019-10-21 | XMS | Encounter Summary ---
Demographics + + + | Address | [address] | | | [place] [address] | + + + | Home Phone [...] | Author | [facility] | | | and Jose Enriqueana | + + + | Organization | [facility] | | | and Jose Enriqueana | + + + | Address | Unknown | + + + | Phone | Unavailable | + + + Support + + + + + | Name | Relationship | Address | Phone | + + + + + | Sharlene Lagunas | ECON | [address] | | | [place] | | [place], [place] | | | | | [address] | | + + + + + | Rickey Bui | ECON | [address] [place], [place] | | | | | [address] | | + + + + + Care Team Providers + +------+ + | Care Java Developer Analyst Name | Role | Phone | + +------+ + PCP | Unavailable | + +------+ + Encounter Details +--------+ + + + + | Date | Type | Department | Care Team | Description | +--------+ + + + + | 04/22/ | Hospital | [facility] | | | | 1999 | Encounter | MED CTR XRAY [address] | | | | | | [place] | | | | | | [place] [address] | | | | | | [phone] | | | +--------+ + + + [...] SERV[place] | | | | | | [address] | | | | | | | | +--------+---------+ + + + documented as of this encounter Visit Diagnoses Not on filedocumented in this encounter"
--- OUTSIDE RECORDS SUMMARY | ~2019-10-21 | XMS | Encounter Summary ---
Demographics + + + | Address | [address] | | | [place] [address] | + + + | Home Phone | | + + + | Preferred Language | Unknown | + + + | Marital Status | | + + + | Jewish Affiliation | 1009 | + + + | Race | Unknown | + + + | Ethnic Group | Unknown | + + + Author + + + | Author | [facility] | | | and Jose Enriqueana | + + + | Organization | [facility] [...] [address] | | | [place] | | [address] [place] | | | | | [address] | | + + + + + | Rickey Bui | ECON | [address] [place], [place] | | | | | [address] | | + + + + + Care Team Providers + +------+ + | Care Stamping Press Operator Name | Role | Phone | [...] Check | | 2016 | | [facility]ARD[facility]OLOGY [facility] | Microbiological Analyst | (Remote) | | | | [address] | | | | | | [place] [address] [place] | | | | | | [address] | | | | | | [phone] | | | +--------+ + + + [...]
--- OUTSIDE RECORDS SUMMARY | ~2019-10-21 | XMS | Encounter Summary ---
Demographics + + + | Address | [address] | | | [place] [address] | + + + | Home Phone [...] Author | [facility] | | | and Jose Enriqueana | + + + | Organization | [facility] | | | [...] [address] | | | [place] | | [place], [place] | | | | | [address] | | + + + + + | Rickey Bui | ECON | [address] [place], [place] | | | | | [address] | | + + + + + Care Team Providers + +------+ + | Care Settlement Technician Name | Role | Phone | + +------+ + | Tayo Robles DO | [place] | | + +------+ + Encounter Details +--------+ + + + + | Date | Type | Department | Care Team | Description | +--------+ + + + + | 07/15/ | Orders Only | JENNIE SIDDIQUI | Joel Moise | Encounter for | | 2013 | | [facility]ARDIOLOGY [facility] | MD [address] | long-term (current) | | | | [address] | [address] | use of other | | | | [address] | [place] [address] | medications (Primary | | | | [address] | [phone] | Dx) | | | | [phone] | | | +--------+ + + + [...] 2020 | Visit | | [address] | | | | | | [place] | | | | | | [address] | | | | | | | | +--------+---------+ + + + documented as of this encounter Results XR Chest PA and Lateral (12/10/2013 9:04 AM PDT) + + + | Impressions | Performed At | + + + | Results not interfaced with [employer]. Please see scanned report in | [facility] | | Media tab. No Amiodarone effects noted per ANASTASIYA Wong , dany in | [facility] - | | 6 months. See Phone note | [facility] | + + + + + + + + | Performing | Address | City/State/Zipcode | Phone Number | | Organization | | | | + + + + + | [place] [facility] | [facility] [address] | [place] [address] | [phone] | | - [facility] | [place] | | | + + + + + documented in this encounter Visit Diagnoses + + | Diagnosis | + + | Encounter for long-term (current) use of other medications - Primary | + + documented in this encounter"
--- OUTSIDE RECORDS SUMMARY | ~2019-10-21 | XMS | Encounter Summary ---
Demographics + + + | Address | [address] | | | [place] [address] | + + + | Home Phone [...] + + | Author | [facility] | | | and Jose Enriqueana | + + + | Organization | [facility] | | | and Jose Enriqueana | + + + | Address | Unknown | + + + | Phone | Unavailable | + + + Support + + + + + | Name | Relationship | Address | Phone | + + + + + | Sharlene Lagunas | ECON | [address] | | | [place] | | [place], [place] | | | | | [address] | | + + + + + | Rickey Bui | ECON | [address] [place], [place] | | | | | [address] | | + + + + + Care Team Providers + +------+ + | Care Cycle Consultant Name | Role | Phone | + [...] + + | 12/25/ | [facility] | [facility] | Rickey Zaragoza PA | ABAD on CPAP (Primary | | 2013 | Visit | SLEEP DISORDER [address] | [address] | Dx); Poor sleep | | | | [address] [place] | [place] | hygiene | | | | [place] [address] | [id number] | | | | | [phone] | | | +--------+---------+ + + + [...] full face mask obtained from: [facility] in [place] pressure is: 6-16 cm 95%: 11.8 cm [...] to get more of his sleep at [facility]. While on a trip to [place], he did not nap and was sleeping nearly seven hours each night . He was not tired during the day. As soon as they returned home, he went back to his norm al routine of napping during the day and not sleeping as well at night. The principles of [facility] hygiene were reviewed him. I explained [...] takes off his mask early in the [facility] has been because he cannot breathe through [...] I have recommended touching base with his [employer] twice per year to ensure that all [...] months, sooner prn. Thirty minutes were spent [id number], wi th the majority of time spent [...] 2019 | Visit | | [address] | | | | | | [place] | | | | | | [id number] | | | | | | | [...]
--- OUTSIDE RECORDS SUMMARY | ~2019-10-21 | XMS | Encounter Summary ---
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 Saw Lorida, Serenoa repens, (SAW PALMETTO PO) CAPS four [...] 08/23/2012 INR 3.0* 03/07/2013 Pacemaker analysis: See lead technician note. This has been reviewed in [...] Medicine - Sports Medicine) KENNETH Givens (Physician Box Spring Maker) Joel Moise MD as Physician (Cardiology) documented in this encounter Plan of Treatment +--------+---------+ + + + | Date | Type | Specialty | Care Team | Description | +--------+---------+ + + + | 10/30/ | Office | Sleep Medicine | Rickey Zaragoza PA | | | 2019 | Visit | | [address] | | | | | | [...] + + | Results not interfaced with Pop.it. Please see scanned report in | [place] | | Media tab. No Amiodarone effects noted per ANASTASIYA Wong , dany in | [place] - | | 6 months. See Phone note | [facility] | + + + + + + + + | Performing | Address | City/State/Zipcode | Phone Number | | Organization | | | | + + + + + | [place] | [facility] [address] | [place] [address] | [phone] | | - [facility] | [...]
--- OUTSIDE RECORDS SUMMARY | ~2019-10-21 | XMS | Encounter Summary ---
Demographics + + + | Address | [address] | | | [place] [address] | + + + | Home Phone | | + + + | Preferred Language | Unknown | + + + | Marital Status | | + + + | Baptism Affiliation | 1009 | + + + | Race | Unknown | + + + | Ethnic Group | Unknown | + + + Author + + + | Author | [facility] | | | and Jose Enriqueana | + + + | Organization | [facility] | | | [...] [address] | | | [place] | | [place], [place] | | | | | [address] | | + + + + + | Rickey Bui | ECON | [address] [place], [place] | | | | | [address] | | + + + + + Care Team Providers + +------+ + | Care Stock Wetter Name | Role | Phone | + [...] | [address] | [place] [address] | | | | | [place], [place] | [phone] | | | | | [address] | | | | | | [phone] | | | +--------+---------+ + + + [...] & spouse are staying overnight at the [place] & will not have access to their [...] he underwent an ablation procedu re in [place] 11 years ago. Apparently he had a [...] Galvan MD [address] [facility] [address] June 30, 2014 at 1:20 pm. Disposition: [...] Discharge References/Attachments DISCHARGE INSTRUCTIONS FOR CARDIAC ABLATION (OMANI) AMIODARONE HYDROCHLORIDE ORAL TABLET (OMANI) If patient has any further questions or [...] Care Everywhere.DISCHARGE INSTR UCTIONS FOR CARDIAC ABLATION (OMANI)AMIODARONE HYDROCHLORIDE ORAL TABLET (OMANI)document ed in this encounter Medications at Time [...] SERVIN | | | | | | [id number] | | | | | | | [...] | | PST | | | | ([id number]) | | | | | + +--------+ [...] | TRACEMASTER | | Interval: msHeartrate: bpmP [place]: degQRS [place]: degT Wave [place]: | | | degI: 40 [place]: degT: 40 [place]: degT: 40 [place]: degST [place]: | | | degSeverity: - ABNORMAL ECG -INTERP: ATRIAL-PACED | | | COMPLEXESINTERP: ABNORMAL T, CONSIDER ISCHEMIA, INFERIOR LEADS | | |P [place]: deg | | |QRS [place]: deg | | |T Wave [place]: deg | | |I: 40 [place]: deg | | |T: 40 [place]: deg | | |T: 40 [place]: deg | | |ST [place]: deg | | |Severity: - ABNORMAL ECG [...] + + + | STANISLAW ERICKSON | [facility] [place]. | [place] [address] | [phone] | + + + + + Protime [...] + + | THANHDIOMEDES IGLESIAS | [address] | [place] [address] | | | [facility] | | | | | LABORATORY [...] SACRED | [address] | [place] [address] | | | [facility] | | | | | LABORATORY [...] + + | JENNIE IGLESIAS | [address] | [place] [address] | | | [facility] [...] [address] | [place] [address] | | | [facility] | | | | | LABORATORY [...] + + | [facility] | [address] [place] | [place] [address] | | | [facility] | [...] + + | JENNIE IGLESIAS | [address] | [place] [address] | | | [facility] | | | | | LABORATORY [...] [address] | [place] [address] | | | HEART [facility] | | | | | [...] + + | THANHNILTONBebo HARRIS | [address] | [place] [address] | | | [facility] | | | | | LABORATORY [...] SACRED | [address] | [place] [address] | | | [facility] | | | | | LABORATORY [...] + | [facility] | [address] [facility] [place] | [place] [address] | | | HEART [facility] | | | | | [...] + + | THANHNILTONBebo HARRIS | [address] | [place] [address] | | | [facility] | | | | | LABORATORY [...] [address] | [place] [address] | | | [facility] | [...] + | JENNIE IGLESIAS | [address] | [place] [address] | | | [facility] [...] + + | Glucose | 102 (H)Comment: Burundian | 65 - 99 mg/dL | [facility] | | | | Diabetes Association [...] at | | | | | | [facility] | | | | | | [facility], [address] | | | | | | [address] [place] [address] | | | | + + + + + + + + | Specimen | + + | Blood specimen | | (specimen) | + + + + + + + | Performing | Address | City/State/Zipcode | Phone Number | | Organization | | | | + + + + + | [facility] | [address] | [place] [address] | | | [facility] [...] | | LABORATORY | | | | [place] | | | | | | [facility], [address] | | | | | | [address] [place] [address] | | | | + + + + + + + + | Specimen | + + | Blood specimen | | (specimen) | + + + + + + + | Performing | Address | City/State/Zipcode | Phone Number | | Organization | | | | + + + + + | SRIE [facility] | [address] | [place] [address] | | | HEART [facility] | | | | | [...] | [facility] | | | Count | [place] | | SACRED | | | | [facility], [facility] W. | | HEART | | | | [address], [place] [address] | | MEDICAL | | | | [...] SACRED | [address] | [place] [address] | | | [facility] | | | | | LABORATORY [...] | | mL/hr | | | Intravenous, PHOTOENGRAVING MACHINE OPERATOR/TENDER, Starting | | AM PST | | [...]
--- OUTSIDE RECORDS SUMMARY | ~2019-10-21 | XMS | Encounter Summary ---
Demographics + + + | Address | [address] | | | [place] [address] | + + + | Home Phone [...] | Author | [facility] | | | and Jose Enriqueana | + + + | Organization | [facility] | | [...] SW | | | [place] | | [place], [place] | | | | | [address] | | + + + + + | Rickey Bui | ECON | [address] [place], [place] | | | | | [address] | | + + + + + Care Team Providers + +------+ + | Care Upper Stitcher Name | Role | Phone | + +------+ + | Tayo Robles DO | JULISSA | | + +------+ + Encounter Details +--------+ + + + + | Date | Type | Department | Care Team | Description | +--------+ + + + + | 04/30/ | Hospital | [facility] | Rickey Galvan MD | Hypertension | | 2014 - | Encounter | [facility]ART MED CTR | [address] | (Primary Dx); Atrial | | | | CARDIAC TELEMETRY | [address] [place], | fibrillation ([facility]); | | 05/01/ | | [address] | [place] [address] | Atrial flutter | | 2013 | | [place], [place] | [phone] | ([facility]); Bicuspid | | | | [address] | | aortic valve | | | | [phone] | | | +--------+ + + + [...] & spouse are staying overnight at the [place] & will not have access to their [...] he underwent an ablation procedu re in [place] 11 years ago. Apparently he had a [...] Galvan MD [address] [facility] [address] June 30, 2014 at 1:20 pm. Disposition: [...] Discharge References/Attachments DISCHARGE INSTRUCTIONS FOR CARDIAC ABLATION ([place] CITIZ[place]) AMIODARONE HYDROCHLORIDE ORAL TABLET ([place] CITIZ[place]) If patient has any further questions or [...] Care Everywhere.DISCHARGE INSTR UCTIONS FOR CARDIAC ABLATION ([place] CITIZ[place])AMIODARONE HYDROCHLORIDE ORAL TABLET ([place] CITIZ[place])document ed in this encounter Medications at Time [...] SERVIN | | | | | | [address] | | | | | | | [...] | | PST | | | | ([id number]) | | | | | + +--------+ [...] | TRACEMASTER | | Interval: msHeartrate: bpmP [place]: degQRS [place]: degT Wave [place]: | | | degI: 40 [place]: degT: 40 [place]: degT: 40 [place]: degST [place]: | | | degSeverity: - ABNORMAL ECG -INTERP: ATRIAL-PACED | | | COMPLEXESINTERP: ABNORMAL T, CONSIDER ISCHEMIA, INFERIOR LEADS | | |P [place]: deg | | |QRS [place]: deg | | |T Wave [place]: deg | | |I: 40 [place]: deg | | |T: 40 [place]: deg | | |T: 40 [place]: deg | | |ST [place]: deg | | |Severity: - ABNORMAL ECG [...] + + + + + | STANISLAW TRACEMASTER | [address] [facility] [place]. | [place] [address] | [phone] | + + + + + Protime [...] + + | JENNIE IGLESIAS | [address] | [place] [address] | | | [facility] | | | | | LABORATORY | [...] SACRED | [address] | [place] [address] | | | [facility] | | | | [...] + + | JENNIE IGLESIAS | [address] | [place] [address] | | | HEART [facility] | | | | | LABORATORY [...] [address] | [place] [address] | | | [facility] | | | | | LABORATORY | [...] + + | [facility] | [address] | [place] [address] | | | [facility] | [...] | + + + + + | THANHNILTONFlorence IGLESIAS | [address] | [place] [address] | | | [facility] | | | | | LABORATORY | [...] SACRED | [address] | [place] [address] | | | [facility] | | | | | LABORATORY | [...] + + | JENNIE IGLESIAS | [address] | [place] [address] | | | [facility] | [...] [address] | [place] [address] | | | [facility] | | | | | LABORATORY | [...] + + | [facility] | [address] [place] | [place] [address] | | | [facility] | [...] + + | THANHDIOMEDES IGLESIAS | [address] | [place] [address] | | | [facility] | | | | | LABORATORY | [...] [address] | [place] [address] | | | [facility] | | | | [...] + + | JENNIE IGLESIAS | [address] | [place] [address] | | | [facility] | | | | [...] + + | Glucose | 102 (H)Comment: Palestinian | 65 - 99 mg/dL | [facility] | | | | Diabetes Association | [...] | >60Comment: GFR <60: | >60 | [facility] | | | GFR | Chronic kidney [...] at | | | | | | [facility] | | | | | | [facility], [address] | | | | | | [address] [place] [address] | | | | + + + + + + + + | Specimen | + + | Blood specimen | | (specimen) | + + + + + + + | Performing | Address | City/State/Zipcode | Phone Number | | Organization | | | | + + + + + | [facility] | [address] | [place] [address] | | | [facility] | | | | [...] | | LABORATORY | | | | [place] | | | | | | [facility], [address] | | | | | | [address] [place], [place] [address] [address] | | | | + + + + + + + + | Specimen | + + | Blood specimen | | (specimen) | + + + + + + + | Performing | Address | City/State/Zipcode | Phone Number | | Organization | | | | + + + + + | [facility] | [address] | [place] [address] | | | [facility] | [...] | [facility] | | | Count | [place] | | SACRED | | | | [facility], [address] | | HEART | | | | [address], [place] [address] | | MEDICAL | | | | [...] + + | [facility] | [address] | [place] [address] | | | [facility] | | | | | LABORATORY | | | | + + + + + documented in this encounter Visit Diagnoses + + | Diagnosis | + + | Hypertension - Primary Unspecified essential hypertension | + + | Atrial fibrillation/atrial flutter Atrial fibrillation | + + | Atrial flutter (HCC) Atrial flutter | + + | Bicuspid aortic valve Congenital insufficiency of aortic valve | + [...] First dose on Mon04/30/14 at | | AM PST | | [...] | | | | | dose on Mon05/01/14 at 0900 | | AM PST | [...] | | mL/hr | | | Intravenous, STEAM FLATTENER, Starting | | AM PST | | [...] | | | BREAKFAST, First dose on Mon | | AM PST | | | [...] 10:17 | | | | | on Mon04/30/14 at 2145 | | PM PST | [...]
--- OUTSIDE RECORDS SUMMARY | ~2019-10-21 | XMS | Encounter Summary ---
Demographics + + + | Address | [address] | | | [place] [address] | + + + | Home Phone [...] + + + | Author | [facility] | | | and Jose Enriqueana | + + + | Organization | [facility] [...] SW | | | [place] | | [place], [place] | | | | | [address] | | + + + + + | Rickey Bui | ECON | [address] [place], [place] | | | | | [address] | | + + + + + Care Team Providers + +------+ + | Care Fence Installer Name | Role | Phone | [...] Cardiology | Diagnoses | [facility] | | | | | 3/3rds Per | [place] | Cardiology | | | | | [...] | ov and | [place] | [address] | | | | | device check | [address] | Phone: | | | | | | | [phone] | | | | | | | Fax: | | | | | | | [phone] | +--------+--------+ + + + + Encounter Details +--------+---------+ + + + | Date | Type | Department | Care Team | Description | +--------+---------+ + + + | 01/06/ | Office | [facility] | Joel Moise | Hx of amiodarone | | 2013 | Visit | [facility]ARDIOLOGY [facility] | MD Conchis [address] | therapy (Primary | | | | [address] | [address] | Dx); Atrial | | | | [address] [address] [place] [address] | [place] [address] | fibrillation/atrial | | | | [address] | [phone] | flutter; Fatigue; | | | | [phone] | | Pacemaker - | | | [...] medication prevegan 10g 1 capsule daily Saw [place], Serenoa repens, (SAW PALMETTO PO) CAPS four [...] Data Presenting rhythm is Atrial Flutter with MEDICAL BILLING MANAGER/VS. Frequent blanked flutter waves are noted (b lanked flutter search is On). AP 15.7%. MEDICAL BILLING MANAGER 67.9%. Heart rate histograms appear appropriate. Battery [...] Medicine - Sports Medicine) KENNETH Givens (Physician Grated Cheese Maker) Joel Moise MD as Physician (Cardiology) Portions of this report were transcribed using voice recognition software. Every effort was made to ensure accuracy; however, inadvertent computerized machine edge bander errors may be pres ent. documented in [...] SERVIN | | | | | | [id number] | | | | | | | [...]
--- OUTSIDE RECORDS SUMMARY | ~2019-10-21 | XMS | Encounter Summary ---
Demographics + + + | Address | [address] | | | [place] [address] | + + + | Home Phone [...] [address] | | | [place] | | [place], [place] | | | | | [address] | | + + + + + | Rickey Bui | ECON | [address] [place], [place] | | | | | [address] | | + + + + + Care Team Providers + +------+ + | Care Field Merchandiser Name | Role | Phone | + +------+ + PCP | Unavailable | + +------+ + Encounter Details +--------+ + + + + | Date | Type | Department | Care Team | Description | +--------+ + + + + | 06/25/ | Hospital | [facility] | | | | 1996 | Encounter | MED CTR GENERIC OP | | | | | | CONV DEPT [address] | | | | | | [place], | | | | | | [place] [address] | | | | | | [phone] | | | +--------+ + + + [...] SERVIN | | | | | | [address] | | | | | | | | +--------+---------+ + + + documented as of this encounter Visit Diagnoses Not on filedocumented in this encounter"
--- OUTSIDE RECORDS SUMMARY | ~2019-10-21 | XMS | Encounter Summary ---
Demographics + + + | Address | [address] | | | [place] [address] | + + + | Home Phone | | + + + | Preferred Language | Unknown | + + + | Marital Status | | + + + | Mu-Ism Affiliation | 1009 | + + + | Race | Unknown | + + + | Ethnic Group | Unknown | + + + Author + + + | Author | [facility] | | | and Jose Enriqueana | + + + | Organization | [facility] | | [...] [address] | | | [place] | | [place], [place] | | | | | [address] | | + + + + + | Rickey Bui | ECON | [address] [place], [place] | | | | | [address] | | + + + + + Care Team Providers + +------+ + | Care Mobile Equipment Servicer Name | Role | Phone | + [...] Dx); | | | | [address] [place], [place] | | Cardiac pacemaker in | | | | [address] | | situ | | | | [phone] | | | +--------+ + + + [...] SERVIN | | | | | | [id number] | | | | | | | [...] Data Presenting rhythm is atrial flutter with GEOLOGICAL E LOGGER, | | | ~84 bpm. GEOLOGICAL E LOGGER 70%. Heart rate histogram appears appropriate. Battery [...] | |Presenting rhythm is atrial flutter with GEOLOGICAL E LOGGER, ~84 bpm. GEOLOGICAL E LOGGER 70%. | | |Heart rate histogram appears [...]
--- OUTSIDE RECORDS SUMMARY | ~2019-10-21 | XMS | Encounter Summary ---
Demographics + + + | Address | [address] | | | [place] [address] | + + + | Home Phone | | + + + | Preferred Language | Unknown | + + + | Marital Status | | + + + | Jehovah'S Witness Affiliation | 1009 | + + + | Race | Unknown | + + + | Ethnic Group | Unknown | + + + Author + + + | Author | [facility] | | | and Jose Enriqueana | + + + | Organization | [facility] | | | and Jose Enriqueana | + + + | Address | Unknown | + + + | Phone | Unavailable | + + + Support + + + + + | Name | Relationship | Address | Phone | + + + + + | Sharlene Lagunas | ECON | [address] | | | [place] | | [place], [place] | | | | | [address] | | + + + + + | Rickey Bui | ECON | [address] [place], [place] | | | | | [address] | | + + + + + Care Team Providers + +------+ + | Care Retail Pricing Coordinator Name | Role | Phone | + +------+ + | Tayo Robles DO | JULISSA | | + +------+ + Encounter Details +--------+ + + + + | Date | Type | Department | Care Team | Description | +--------+ + + + + | 04/30/ | Hospital | [facility] | Rickey Galvan MD | Hypertension | | 2014 - | Encounter | [facility] | [address] | (Primary Dx); Atrial | | | | CARDIAC TELEMETRY | [address] [place], | fibrillation ([facility]); | | 05/01/ | | [address] | [place] [address] | Atrial flutter | | 2013 | | [place], [place] | [phone] | ([facility]); Bicuspid | | | | [address] | | aortic valve | | | | [phone] | | | +--------+ + + + [...] & spouse are staying overnight at the [place] & will not have access to their [...] he underwent an ablation procedu re in [place] 11 years ago. Apparently he had a [...] afternoon of May 01, 2014. Follow-Up: Rickey Galvna MD [address] [facility] [address] June 30, 2014 at 1:20 pm. Disposition: [...] Discharge References/Attachments DISCHARGE INSTRUCTIONS FOR CARDIAC ABLATION (CHADIAN) AMIODARONE HYDROCHLORIDE ORAL TABLET (CHADIAN) If patient has any further questions or [...] Care Everywhere.DISCHARGE INSTR UCTIONS FOR CARDIAC ABLATION (CHADIAN)AMIODARONE HYDROCHLORIDE ORAL TABLET (CHADIAN)document ed in this encounter Medications at Time [...] SERVIN | | | | | | [address] | | | | | | | [...] | | PST | | | | ([id number]) | | | | | + +--------+ [...] | TRACEMASTER | | Interval: msHeartrate: bpmP [place]: degQRS [place]: degT Wave [place]: | | | degI: 40 [place]: degT: 40 [place]: degT: 40 [place]: degST [place]: | | | degSeverity: - ABNORMAL ECG -INTERP: ATRIAL-PACED | | | COMPLEXESINTERP: ABNORMAL T, CONSIDER ISCHEMIA, INFERIOR LEADS | | |P [place]: deg | | |QRS [place]: deg | | |T Wave [place]: deg | | |I: 40 [place]: deg | | |T: 40 [place]: deg | | |T: 40 [place]: deg | | |ST [place]: deg | | |Severity: - ABNORMAL ECG [...] + | STANISLAW TRACEMASTER | [address] | [place] [address] | [phone] | + + + + + Protime [...] + + | JENNIE IGLESIAS | [address] | [place] [address] | | | [facility] | | | | | LABORATORY | [...] SACRED | [address] | [place] [address] | | | [facility] | [...] + + | JENNIE IGLESIAS | [address] | [place] [address] | | | [facility] | | | | | [...] [address] | [place] [address] | | | [facility] | | | | | LABORATORY | [...] + + | [facility] | [address] | [place] [address] | | | [facility] | [...] + | [place] | [address] | [place] [address] | | | [facility] | | | | | LABORATORY | [...] SACRED | [address] | [place] [address] | | | [facility] | | | | | LABORATORY | [...] + + | JENNIE IGLESIAS | [address] | [place] [address] | | | [facility] | [...] [address] | [place] [address] | | | [facility] | | | | | LABORATORY | [...] + + | [facility] | [address] [place] | [place] [address] | | | [facility] | [...] + + | THAN[place] IGLESIAS | [address] | [place] [address] | | | [facility] | | | | | LABORATORY | [...] [address] | [place] [address] | | | [facility] | [...] + + | JENNIE IGLESIAS | [address] | [place] [address] | | | [facility] | [...] + + | Glucose | 102 (H)Comment: [place] | 65 - 99 mg/dL | PICHER | | | | Diabetes Association | [...] | >60Comment: GFR <60: | >60 | [facility] | | | GFR | Chronic kidney [...] at | | | | | | [facility] | | | | | | [facility], [address] | | | | | | [address] [place] [address] | | | | + + + + + + + + | Specimen | + + | Blood specimen | | (specimen) | + + + + + + + | Performing | Address | City/State/Zipcode | Phone Number | | Organization | | | | + + + + + | [facility] | [address] | [place] [address] | | | [facility] | [...] | | LABORATORY | | | | [place] | | | | | | [facility], [address] | | | | | | [address] [place], [place] [address] [address] | | | | + + + + + + + + | Specimen | + + | Blood specimen | | (specimen) | + + + + + + + | Performing | Address | City/State/Zipcode | Phone Number | | Organization | | | | + + + + + | [facility] | [address] | [place] [address] | | | [facility] | [...] | [facility] | | | Count | [place] | | [facility]CRED | | | | [facility], [address] | | HEART | | | | [address], [place] [address] | | MEDICAL | | | | [...] + + | [facility] | [address] | [place] [address] | | | [facility] | | | | | LABORATORY | [...] | | mL/hr | | | Intravenous, [employer], Starting | | AM PST | | [...]
--- OUTSIDE RECORDS SUMMARY | ~2019-10-21 | XMS | Encounter Summary ---
Demographics + + + | Address | [address] | | | [place] [address] | + + + | Home Phone [...] + | Author | [facility] | | | and Jose Enriqueana | + + + | Organization | [facility] [...] [address] | | | [place] | | [place], [place] | | | | | [address] | | + + + + + | Rickey Bui | ECON | [address] [place], [place] | | | | | [address] | | + + + + + Care Team Providers + +------+ + | Care Systems Navigator Name | Role | Phone | + +------+ + PCP | Unavailable | + +------+ + Encounter Details +--------+ + + + + | Date | Type | Department | Care Team | Description | +--------+ + + + + | 10/21/ | Hospital | [facility] | Tramaine Dunbar, | | | 2002 | Encounter | [facility] | MD [address] | | | | | EMERGENCY CENTER | [place] [address] | | | | | [address] | [phone] | | | | | [place], [place] | | | | | | [address] | | | | | | [phone] | | | +--------+ + + + [...] SERVIN | | | | | | [id number] | | | | | | | | +--------+---------+ + + + documented as of this encounter Visit Diagnoses Not on filedocumented in this encounter"
--- OUTSIDE RECORDS SUMMARY | ~2019-10-21 | XMS | Encounter Summary ---
Demographics + + + | Address | [address] | | | [place] [address] | + + + | Home Phone [...] Author | [facility] | | | and Jose Enriqueana | + + + | Organization | [facility] | | | and Jose Enriqueana | + + + | Address | Unknown | + + + | Phone | Unavailable | + + + Support + + + + + | Name | Relationship | Address | Phone | + + + + + | Sharlene Lagunas | ECON | [address] | | | [address] | | [place], [place] | | | | | [address] | | + + + + + | Rickey Bui | ECON | [address] [place], [place] | | | | | [address] | | + + + + + Care Team Providers + +------+ + | Care Lumber Yard Worker Name | Role | Phone | + [...] Check | | 2019 | | [facility] | MD Conchis [address] | (Remote) | | | | [facility] [address] | [place] [address] | | | | | [place] [address] [place] | [place] [address] | | | | | [address] | [phone] | | | | | [phone] | | | +--------+ + + + [...]
--- OUTSIDE RECORDS SUMMARY | ~2019-10-21 | XMS | Encounter Summary ---
Demographics + + + | Address | [address] | | | [place] [address] | + + + | Home Phone [...] + + + | Author | [facility] | | | and Jose Enriqueana | + + + | Organization | [facility] | [...] [address] | | | [place] | | [place], [place] | | | | | [address] | | + + + + + | Rickey Bui | ECON | [address] [facility] [place] | | | | | [address] | | + + + + + Care Team Providers + +------+ + | Care Crystal Flat Grinder Name | Role | Phone | + +------+ + | Luna Larson | PCP | | | PA | | | + +------+ + Reason for Visit + + + | Reason | Comments | + + + | New Patient | Varicose veins of bilateral lower extremities | + + + Evaluate & Treat (Routine) +--------+--------+ + + + + | Status | Reason | Specialty | Diagnoses / | Referred By | Referred To | | | | | Procedures | Contact | Contact | +--------+--------+ + + + + | Closed | | General | Diagnoses | No, | Field, | | | | Surgery | Varicose | Physician p | Miguel Angel Langley, | | | | | veins of | | MD, FACS [address] | | | | | bilateral | | [address] | | | | | lower | | [place], | | | | | extremities | | [place] [address] | | | | | with pain | | Phone: | | | | | Procedures | | [phone] | | | | | [place] OFFICE | | Fax: | | | | | OUTPATIENT | | [phone] | | | | | NEW 45 | | | | | | | MINUTES | | | +--------+--------+ + + + + Encounter Details +--------+---------+ + + + | Date | Type | Department | Care Team | Description | +--------+---------+ + + + | 12/20/ | Office | [facility] | Miguel Angel Perrin | Varicose veins of | | 2018 | Visit | SURGERY [address] | MD Shivam, FACS [address] | right lower | | | | [address] [place], [place] | [facility] | extremity with pain | | | | [address] | [place] [address] | (Primary Dx); | | | | [phone] | [phone] | Varicose veins of | | | | | | right leg with | | | | | | edema; Varicose | | | | | | veins of left lower | | | | | | extremity with pain; | | | | | | Varicose veins of | | | | | | left leg with edema | +--------+---------+ + + + Social History [...] + + + | Blood Pressure | 160/60 | 12/20/2018 9:08 AM | | | | | PDT | | + + + + + | Pulse | 87 | 12/20/2018 9:08 AM | | | [...] + | Weight | 108 kg (238 lb 1.6 | 12/20/2018 9:08 AM | | | | oz) | PDT | | + + + + + | Height | 193 cm (6' 4") | 12/20/2018 9:08 AM | | | | | PDT | | + + + + + | Body Mass Index | 28.98 | 12/20/2018 9:08 AM | | | | | PDT | | + + + + + documented in this encounter Progress Notes iMguel Angel Perrin MD, FACS - 12/20/2018 9:00 AM PDTFormatting of this note might be diff erent from the original. Patient Identification: Prabhjot Bui 1945 Is a 73 y.o. 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 Chief Complaint: Chief Complaint Patient presents with New Patient Varicose veins of bilateral lower extremities HISTORY of PRESENT ILLNESS Patients Preliminary Questionnaire: How do your varicose veins bother you? Eg- pain, heaviness, unsightly, bleeding, clots. Pain Which leg is the worst? RIGHT leg is worse When did you start getting varicose veins? Probably about 35 years old Have you tried wearing compression or support stockings? Have them but wear them infrequently Have you had previous treatment for varicosities? Eg injection sclerotherapy, laser or r adiofrequency ablation or surgery? no Physician notes: Patient arrives today to consult on bilateral leg varicose veins. Believes he started devel oping varicose veins in his 30's but reports his varicose veins did not start bothering him until about a year ago. About a year ago he started developing leg pain, leg pain is primari ly at night. States occasionally his leg pain will wake him up at night. Over the last year has had about 6 episodes of this pain. Does get occasional leg cramps, describes the pain as different then a leg cramp. Pain is primarily located in his bilateral thighs and lasts for about 10 minutes before it will resolve. Has not found a way to get relief from pain, wi ll massage his legs but states this does not help. Has started taking ibuprofen before bed t o help prevent the pain. Patient tried wearing compression stockings intermittently for a wh ile many years ago, states he wears them infrequently. Does believe they help with leg swell ing. No prior surgical treatment for varicose veins. Believes he may have had a RIGHT leg blood clot in the past, does not recall the details of this. Has had RIGHT leg phlebitis, does not recall if he was put on blood thinner. Has been on blood thinners for atrial fibrillation. Patient is able to walk as far as he would like without leg pain. States his legs do feel f atigue after mowing the lawn, will occasionally have to stop walking to rest. He novoa have ne uropathy, describes this as numbness in his feet. Does have occasional back pain that he attributes to a pulled muscle. CARDIAC: Patient has atrial fibrillation and is treated with warfarin. Patient has a pacema ker inserted. RISK: Never smoker. Reports family history of varicose veins, mother had varicose veins but did not have surgery to treat them. Opioid Risk Tool (ORT): Total Score 0 (12/20/18 0930) Interpretation of Total Score: 0 to 3 = Low risk: 6% chance of developing problematic behav iors, 4 to 7 = Moderate risk: 28% chance of developing problematic behaviors, 8 or more = Hi gh risk: 90% chance of developing problematic behaviors. KENNETH Felix's notes were reviewed in clinic today. PAST MEDICAL HISTORY Past Medical History: Diagnosis [...] Hypertension Labile hypertension. Blood pressure 194/120 approximately 1/20/06. Hypertrophy of breast Leg swelling Intermittent right leg swelling . wears support hose Localized soft tissue swelling Lymphedema Pacemaker MEDTRONIC Paroxysmal atrial fibrillation (HCC) Last cardioversion 12/26/02. Pulmonary vein isolation carried out at the [facility] on 09/01/01. Phlebitis Phlebitis - right leg with superficial enlargement of superficial veins over the right thi gh, improved at office visit 01/17/06. Seborrheic dermatitis Sleep apnea CPAP- WILL BRING SOB (shortness of breath) D/T A FIB W/ACTIVITY Thyroid disease HYPOTHYROID TIA (transient ischemic attack) LAST 2009 OR 2010 HAS HAD "A FEW TIA"- Varicose veins Venous insufficiency Past Surgical History: Procedure Laterality Date ABLATION OF DYSRHYTHMIC FOCUS 04/30/2014 A-FIB ABLATION W/IVETTE AND SHAYNA W/DR SARAVIA; Laterality: N/A; Surgeon: Rickey Galvan MD ; Location: [facility] ELECTROPHYSIOLOGY AORTIC ROOT ANEURYSM RESECTION AORTIC ROOT REPLACEMENT AND REIMPLANTATION OF CORONARY ARTERIES 05/28/08 Dr. Kelsey ASCENDING AORTA REPLACEMENT 05/28/08 Dr. Kelsey ATRIAL ABLATION SURGERY 2002 ,2008 CARDIAC PACEMAKER PLACEMENT 02/27/12 MEDTRONIC CARDIOVERSION 06/19/00,11/24/00,07/25/01,10/18/01,12/26/02,12/02/04 CARDIOVERSION 03/07/13 CHOLECYSTECTOMY 2004 COLONOSCOPY 09/02/2015 HIP JOINT REPLACEMENT Left 05/17/15 INGUINAL HERNIA REPAIR 1990 and 1993 X2 SHOULDER SURGERY 05/28/13 right TOOTH EXTRACTION VASECTOMY WRIST SURGERY left Allergies Allergen Reactions Flecainide Other (See Comments) AFTER 1ST ABLATION, HAD LEG SWELLING, INCREASED HEART RATE Amoxicillin Rash Medications: Outpatient Encounter Medications as of 12/20/2018 Medication Sig Dispense Refill anastrozole (ARIMIDEX) 1 mg tablet Take 0.25 tablets by mouth Once a week. MONDAYS [DISCONTINUED] ARMOUR THYROID 15 MG tablet Take 1 tablet by mouth every morning. 75 mg in the AM and 30 mg in the PM 3 Cholecalciferol (CVS VITAMIN D) 2000 UNITS CAPS Take 5,000 Units by mouth Daily. cloNIDine (CATAPRES) 0.2 MG tablet TAKE 1 TABLET TWICE A DAY *ACTAVIS* 180 tablet 0 [DISCONTINUED] cloNIDine (CATAPRES) 0.2 MG tablet TAKE 1 TABLET TWICE A DAY *ACTAVIS* 180 tablet 1 Coenzyme Q10 (CO Q-10) 100 MG CAPS Take 1 capsule by mouth Daily. Also has E-Saumdn-Ywq teine 250 mg & Pyrroloquinoline PQQ 10 [...] tablet Take 20 mg by mouth as needed for Edema. [DISCONTINUED] furosemide (LASIX) 20 mg tablet Take 20 mg by mouth as needed. 1 tablet daily on Monday and with Potassium Garlic 1000 MG CAPS Take 1,000 mg by mouth Daily. L-Methylfolate 15 MG TABS Take 15 mg by mouth Daily. levothyroxine (SYNTHROID) 25 mcg tablet Take 25 mcg by mouth every morning (before kf). MAGNESIUM PO Take 133 mg by mouth. metoprolol succinate (TOPROL-XL) 50 mg 24 hr tablet Take 1.5 tablets by mouth 2 times d aily. 270 tablet 1 non-formulary medication Daily. Nerium po [DISCONTINUED] potassium chloride (K-DUR) 20 mEq ER tablet 1 tablet on Monday and day with Furosemide 30 tablet 2 Potassium Gluconate 595 MG CAPS Take 1 capsule by mouth Daily. PROAIR HFA 108 (90 Base) MCG/ACT inhaler Inhale 2 puffs into the lungs as needed. 1 [DISCONTINUED] SYNTHROID 50 MCG tablet Take 1 tablet by mouth Daily. tamsulosin (FLOMAX) 0.4 mg CAPS Take 0.4 mg by mouth daily (after breakfast). TAURINE PO Take 1,500 mg by mouth 2 times daily. Six caps daily; testosterone (ANDROGEL) 50 mg/5 g (1%) gel Apply 50 mg of testosterone topically Daily. [DISCONTINUED] testosterone cypionate (DEPO-TESTOSTERONE) 100 mg/mL injection Inject 10 0 mg into the muscle every 14 days. thyroid (ARMOUR THYROID) 30 mg tablet Take 30 mg by mouth Daily. [place] Thyroid 75 mg i n the morning and 30 mg in the evening. torsemide (DEMADEX) 20 mg tablet Take 20 mg by mouth as needed for Edema. TURMERIC PO Take by mouth. UNABLE TO FIND Daily. Med Name: Spirolina warfarin (COUMADIN) 7.5 mg tablet Take 7.5 mg by mouth See Admin Instructions. As direc adrián by PCP No facility-administered encounter medications on file as of 12/20/2018. Family History Problem Relation Age of Onset Hypertension Sister Stroke Sister 62 Hypertension Mother Atrial fibrillation Mother Also had a bad valve Breast cancer Mother Colon cancer Brother , colon cancer Hypertension Father Diabetes Father Dementia Father Stroke Father Diabetes Maternal Grandmother Social History: He reports that he has never smoked. He has never used smokeless tobacco. He reports that h e does not drink alcohol or use drugs. REVIEW OF SYSTEMS Unmarked boxes mean negative response. General: []Weight loss/gain (over 10 lbs) []Fever/chills []Night sweats Hematologic: []Bleeding/ bruising tendencies []Blood transfusion []Anemia Heent: []Vision loss [x]Hearing loss []Sinus problems/nose bleeds []Hoarseness Respiratory: []Wheezing [x]Shortness of breath []Cough []Spitting up blood []On oxygen []Use CPAP machine Cardiac: []Chest pain [x]Palpitations/heart racing [x]Swelling of ankles/hands []Unusual shortness of breath [x]Difficulty sleeping fl at Gastrointestinal: []Nausea/vomiting []Difficulty swallowing []Heartburn []Loss of appetite []Abdominal pain []Stomach Ulcers [x]Diarrhea []Constipation []Royer ck or bloody stools Vascular: [x]Strokes/TIAs []Fainting []Difficulty with speech [x]Leg cramps [x]Pain in feet/legs at rest []Foot ulcers/ sores [x]Varicose veins [x]Phlebitis/blood clots Musculoskeletal: []Joint stiffness/swelling []Joint pain []Back pain []Arthritis []Gout Urologic: []Blood in urine [x]Frequent urination at night []Burning/painful urination []Kidney stones []Difficulty urination []Sexual difficulties Neuro/Psychiatric: []Headaches []Seizures []Depression []Anxiety attacks [x]Memory loss or confusion PHYSICAL EXAM BP 160/60 | Pulse 87 | Temp 36.3 C (97.3 F) (Temporal) | Ht 1.93 m (6' 4") | Wt 108 kg (238 lb 1.6 oz) | SpO2 97% | BMI 28.98 kg/m Body mass index is 28.98 kg/m. General Appearance: Alert, cooperative, no distress, appears stated age Head: Normocephalic, without obvious abnormality, atraumatic Eyes: PERRL, conjunctiva/corneas clear, EOM's intact Ears: Hearing adequate Nose: Nares normal Throat: Lips, mucosa, and tongue normal; teeth and gums normal Neck: Supple, symmetrical, no adenopathy, no neck bruits Lungs: Breath sounds are equal bilaterally, no wheezes or crackles Chest Wall/Back: No tenderness or deformity. No CVA Tenderness . Midline chest scar, pace maker present. Heart: Regular rate and rhythm, very soft systolic ejection murmur. Abdomen: Soft, non-tender, no pulsatile nor other masses, typical lap raissa scars Extremities: Varicosities: Bilateral legs with 12-16 mm soft varicosities involving the medial thigh, medial calf and lateral thigh.--see pics. RIGHT ankle with extensive hemosiderin deposits, less on the LEFT Skin: Hemosiderin Bilateral ankle hemosiderin depsosits Ulceration none Edema: 3+ pitting edema bilaterally Palpable Pulses*: Femoral Popliteal Dorsalis pedis Post tibial LEFT 2 2 2 2 RIGHT 2 2 2 2 Ultrasound: See report. Calf measurements: RIGHT CALF 43 cm ANKLE 26 cm LEFT CALF 42 cm ANKLE 25.8 cm Neurologic: Cranial nerves II-XII grossly intact, Gait normal LEFT leg LEFT leg LEFT leg RIGHT leg RIGHT leg RIGHT leg ULTRASOUND REPORT: [facility]QU[facility]: Snaapiq M-CallAppo with 10-5 mHertz probe. INDICATIONS: Bilateral large, bulging varicosities. FINDING: RIGHT GSV measures 15.7 mm, with reflux. RIGHT SF [place] without reflux. RIGHT thigh varicose veins measures 9.9 mm and has 2.21 seconds of reflux. RIGHT GSV at the calf measures 4.8 mm, no reflux in this position. RIGHT LSV measures 3.2 mm, no reflux. Some reflux in the RIGHT popliteal vein. LEFT GSV measures 11.6 mm, with 1.15 seconds of reflux. LEFT [place] with 1.11 seconds of reflux. LEFT thigh varicose vein measures 5 mm. LEFT LSV measures 4.4 mmm, no reflux. No reflux in the popliteal vein. IMPRESSION: Bilateral GSV reflux with large secondary varicosities. Assessment 1. Varicose veins of right lower extremity with pain 2. Varicose veins of right leg with edema 3. Varicose veins of left lower extremity with pain 4. Varicose veins of left leg with edema Plan 1. Possibly symptomatic bilateral large varicosities. Educated patient on the benefits of wearing compression stockings. Recommend daily use of b ilateral thigh high compression stockings, advise he apply them every morning and remove nig htly before bed. Return to clinic in 3 months. Will compare symptoms after regular compression stocking use . Miguel Angel Perrin MD, FACS Vascular and General Surgery CC: KENNETH Felix, No, Physician documented i n this encounter Plan of Treatment +--------+---------+ + + + | Date | Type | Specialty | Care Team | Description | +--------+---------+ + + + | 10/30/ | Office | Sleep Medicine | Rickey Zaragoza PA | | | 2019 | Visit | | [address] | | | | | | [place] | | | | | | [address] | | | | | | | | +--------+---------+ + + + documented as of this encounter Visit Diagnoses + + | Diagnosis | + + | Varicose veins of right lower extremity with pain - Primary Varicose veins of lower | | extremities with other complications | + + | Varicose veins of right leg with edema | + + | Varicose veins of left lower extremity with pain Varicose veins of lower extremities | | with other complications | + + | Varicose veins of left leg with edema | + + documented in this encounter
--- OUTSIDE RECORDS SUMMARY | ~2019-10-21 | XMS | Encounter Summary ---
Demographics + + + | Address | [address] | | | [place] [address] | + + + | Home Phone | | + + + | Preferred Language | Unknown | + + + | Marital Status | | + + + | Adventism Affiliation | 1009 | + + + | Race | Unknown | + + + | Ethnic Group | Unknown | + + + Author + + + | Author | [facility] | | | and Jose Enriqueana | + + + | Organization | [facility] | | | and Jose Enriqueana | + + + | Address | Unknown | + + + | Phone | Unavailable | + + + Support + + + + + | Name | Relationship | Address | Phone | + + + + + | Sharlene Lagunas | ECON | [address] | | | [address] | | [address], [place] | | | | | [address] | | + + + + + | Rickey Bui | ECON | [address] [place], [place] | | | | | [address] | | + + + + + Care Team Providers + +------+ + | Care Senior Database Administrator Name | Role | Phone | [...] + + | 09/05/ | Procedure | [facility] | | Fitting and | | 2016 | visit | [facility] | | adjustment of | | | | HI[address] | | cardiac pacemaker | | | | [address] [place], [place] | | (Primary Dx); | | | | [address] | | Sinoatrial node | | | | [phone] | | dysfunction (HCC) | +--------+ + [...] | | | | | [place] | | | | | | [id number] | | | | | | | [...] | + + + | Alex Jensen psych nurse 09/05/2016 13:20 PATIENT NAME: Prabhjot RAMIREZ | [...]
--- OUTSIDE RECORDS SUMMARY | ~2019-10-21 | XMS | Encounter Summary ---
Demographics + + + | Address | [address] | | | [place] [address] | + + + | Home Phone [...] | Author | [facility] | | | and Jose Enriqueana | + + + | Organization | [facility] [...] [address] | | | [place] | | [address], [place] | | | | | [address] | | + + + + + | Rickey Bui | ECON | [address] [place], [place] | | | | | [address] | | + + + + + Care Team Providers + +------+ + | Care Rubber Cutting Machine Tender Name | Role | Phone | + +------+ + PCP | Unavailable | + +------+ + Encounter Details +--------+ + + + + | Date | Type | Department | Care Team | Description | +--------+ + + + + | 06/25/ | Hospital | [facility] | | | | 1996 | Encounter | MED CTR GENERIC OP | | | | | | CONV DEPT [address] | | | | | | [place], | | | | | | [place] [address] | | | | | | [phone] | | | +--------+ + + + [...] SERV[place] | | | | | | [address] | | | | | | | | +--------+---------+ + + + documented as of this encounter Visit Diagnoses Not on filedocumented in this encounter"
--- OUTSIDE RECORDS SUMMARY | ~2019-10-21 | XMS | Encounter Summary ---
Demographics + + + | Address | [address] | | | [place] [address] | + + + | Home Phone [...] Author | [facility] | | | and Jose Enriqueana | + + + | Organization | [facility] | | | and Jose Enriqueana | + + + | Address | Unknown | + + + | Phone | Unavailable | + + + Support + + + + + | Name | Relationship | Address | Phone | + + + + + | Sharlene Lagunas | ECON | [address] | | | [address] | | [place], [place] | | | | | [address] | | + + + + + | Rickey Bui | ECON | [address] [place], [place] | | | | | [address] | | + + + + + Care Team Providers + +------+ + | Care Yield Loss Inspector Name | Role | Phone | [...] | (Primary Dx); | | | | [address] | | Cardiac pacemaker in | | | | [address] | | situ | | | | [phone] | | | +--------+ + + + [...] SERV[place] | | | | | | [address] | | | | | | | [...] is atrial fibrillation with | | | SALVAGE SUPERVISOR, ~78 bpm. SALVAGE SUPERVISOR 56.7%. Heart rate histogram appears somewhat broad [...] | |Presenting rhythm is atrial fibrillation with SALVAGE SUPERVISOR, ~78 bpm. SALVAGE SUPERVISOR | | |56.7%. Heart rate histogram appears [...]
--- OUTSIDE RECORDS SUMMARY | ~2019-10-21 | XMS | Encounter Summary ---
Demographics + + + | Address | [address] | | | [place] [address] | + + + | Home Phone | | + + + | Preferred Language | Unknown | + + + | Marital Status | | + + + | Moravian Affiliation | 1009 | + + + | Race | Unknown | + + + | Ethnic Group | Unknown | + + + Author + + + | Author | [facility] | | | and Jose Enriqueana | + + + | Organization | [facility] | [...] [address] | | | [address] | | [address], [place] | | | | | [address] | | + + + + + | Rickey Bui | ECON | [address] [place], [place] | | | | | [address] | | + + + + + Care Team Providers + +------+ + | Care Loading Checker Name | Role | Phone | + +------+ + | Tayo Robles DO | PCP | | + +------+ + Reason for Visit + + + | Reason | Comments | + + + | Atrial Fibrillation | 6 MO | + + + Encounter Details +--------+---------+ + + + | Date | Type | Department | Care Team | Description | +--------+---------+ + + + | 01/19/ | Office | [facility] | Augusto Kunz | Sinoatrial node | | 2016 | Visit | [facility] | MD [address] | dysfunction ([facility]) DO | | | | [address] | [address] | NOT DELETE. | | | | [address] | [place] [address] | (Primary Dx); | | | | [place], [place] | [phone] | Pacemaker - | | | | [address] | | Medtronic - ADDRL1 | | | | [phone] | | Adapta - Implanted | | [...] aort; | | | | | | Essential | | | | | | hypertension, | | | | | | hypertension with | | | | | | unspecified goal | +--------+---------+ + + + Social History [...] + + + | Blood Pressure | 130/70 | 01/20/2016 1:31 PM | L | | | | PDT | | + + + + + | Pulse | 75 | 01/20/2016 1:31 PM | | | | | PDT [...] + + + + | Weight | 102.1 kg (225 lb) | 01/20/2016 1:31 PM | | | | | PDT | | + + + + + | Height | 177.8 cm (5' 10") | 01/20/2016 1:31 PM | | | | | PDT | | + + + + + | Body Mass Index | 32.28 | 01/20/2016 1:31 PM | | | | | PDT | | + + + + + documented in this encounter Patient Instructions Patient Instructions Augusto Kunz MD - 01/20/2016 2:33 PM PDTReduce Toprol Xl to 5 0 mg once daily from twice daily Monitor BP daily for now and if bp Systolic blood pressure (top number) > 140 more than 25% of the time, Then increase Clonidine to 0.3 mg twice daily (you will need 0.1 mg pill) we will write for it now. You will contact us by My Chart to write for additional medication Sign up for My Chart with the help of Lexy Albright RN Pacer transmission in 2 weeks re heart rate change Speak with Ila sloan cell phone and your remotes documented in this encounter Progress Notes Augusto Kunz MD - 01/20/2016 1:31 PM PDT PATIENT NAME: Prabhjot Bui : 1945: AGE: 70 y.o. Date of service: 01/20/2016 PRIMARY CARE: Tayo Robles DO CHIEF COMPLAINT: Chief Complaint Patient presents with Atrial Fibrillation 6 MO HISTORY OF PRESENT ILLNESS 70 y.o. year old male seen in follow up for the problems listed below. Patient last seen by me 06/03/15 at which time he was recovering from hip surgery. Post surgery, he complained of exacerbated atrial fibrillation when trying to exert himself with shortness of breath altho ugh this was improving with recovery from the surgery. Presently, he reports feeling well ov erall. He is able to work in the yard for a few hours at a time, but then is forced to rest due to fatigue. He reports that his fatigue on exertion has been increasing, and his exercis e capacity has slightly decreased. Otherwise, he offers no new complaints at this time. Ruthy ent denies exertional or resting chest pain, shortness of breath, PND, orthopnea, ankle rubin a and palpitations. Lab from 11/24/15: Total 124, triglycerides 116, HDL 36, LDL 64, free T4 1, potassium 4.2, gl ucose 102, creatinine .68, hemoglobin 14.4, hematocrit 43.6, platelet 137. CURRENT ASSESSMENT BY PROBLEM LIST 1. Sinoatrial node dysfunction (HCC) DO NOT DELETE. - Is A-paced 60% and therefore persis ts. 2. Pacemaker - Medtronic - ADDRL1 Adapta - Implanted 02/27/2012 DO NOT RESOLVE - Function i s appropriate with battery life over 11 years and rate response is somewhat blunted. Will al low the patient to have more intrinsic heart rate by reducing Toprol XL 3. Atrial fibrillation, unspecified type (HCC) - Rate controlled and anticoagulated. Will reduce rate controlling drug. In fact, rate control appears to be too tight with heart rate histogram shifted to the left. We'll reduce his beta niko dose. 4. Edema - Local problem - long standing. No worse and not reflective of any heart failure 5. Bicuspid aortic valve with dilated aortic root - mild aortic insufficiency - Echocardi ogram 09/13/04 reveals peak gradient of 11, calculated valve area of 2.3 cm2, and mildly dila adrián ascending aort - Valve replacement functions well on ECHO today. 6. Essential hypertension, hypertension with unspecified goal - Blood pressure controlle d. Plan: 1. Reduce Toprol to 50 mg once daily from twice daily to reduce rate control as it appears to be too tight. 2. Monitor blood pressure - if greater than 140 systolic >25% of the time, increase Clonidi ne in concert with lowering Toprol 3. Sign up for my chart 4. Continue other current medications 5. Pacer transmission in 2 weeks FOLLOWUP Return in about 6 months (around 07/19/2016) for a karo f/marcos YI. MEDICATION ADJUSTMENTS New Prescriptions No medications on file These Medications Have Changed Start Taking Instead of metoprolol succinate (TOPROL-XL) 50 mg 24 hr tablet metoprolol succinate (TOPROL-XL) 50 mg 24 hr tablet Dosage: Take 1 tablet by mouth Daily. - Oral Dosage: Take 1 tablet by mouth 2 times eduin y. - Oral Reason for Change: Reorder cloNIDine (CATAPRES) 0.1 mg tablet cloNIDine (CATAPRES) 0.2 MG tablet Dosage: Take 2 tablets by mouth 2 times daily. May increase to 0.3 mg BID if elevated BP per Dr. Kunz's instructions. - Oral Dosage: TAKE 1 TABLET TWICE A DAY Reason for Change: Reorder Medications Discontinued During This Encounter Medication Reason Cyanocobalamin 1000 MCG/ML KIT Therapy completed Testosterone Cypionate (DEPO-TESTOSTERONE IM) Therapy completed metoprolol succinate (TOPROL-XL) 50 mg 24 hr tablet Reorder cloNIDine (CATAPRES) 0.2 MG tablet Reorder NEW ORDERS Orders Placed This Encounter Procedures ECG 12 lead . MEDICAL, SURGICAL, AND PERSONAL HISTORY Past Medical History Diagnosis Date Paroxysmal atrial fibrillation (HCC) Last cardioversion 12/26/02. Pulmonary vein isolation carried out at the [facility] on 09/01/01. Aortic insufficiency and aortic stenosis [...] SARAVIA; Laterality: N/A; Surgeon: Ty Arzola; Location: [facility] Hip joint replacement Left 05/17/15 His [...] CURRENT MEDICATIONS Outpatient Encounter Prescriptions as of 01/20/2016 Medication Sig Dispense Refill anastrozole (ARIMIDEX) 1 mg tablet Take 0.25 tablets by mouth every 7 days. MONDAYS Cholecalciferol ([employer] VITAMIN D) 2000 UNITS CAPS Take 4,000 Units by mouth Daily. cloNIDine (CATAPRES) 0.1 mg tablet Take 2 tablets by mouth 2 times daily. May increase to 0.3 mg BID if elevated BP per Dr. Kunz's instructions. 360 tablet 3 [DISCONTINUED] cloNIDine (CATAPRES) 0.2 MG tablet TAKE 1 TABLET TWICE A DAY 180 tablet 3 Coenzyme Q10 (EQL COQ10) 200 MG CAPS Take 200 mg by mouth Daily. [DISCONTINUED] Cyanocobalamin 1000 MCG/ML KIT Inject as directed Every 3 days. DHEA 25 MG CAPS Take 25 mg by mouth Daily. (Patient taking differently: Take 10 mg by m outh Daily.) digoxin (LANOXIN) 250 mcg tablet TAKE 1 [...] hr tablet Take 1 tablet by mouth Daily. 90 ta blet 3 [DISCONTINUED] metoprolol succinate (TOPROL-XL) 50 mg 24 hr tablet Take 1 tablet by 2 times daily. 180 tablet 3 Probiotic Product (PROBIOTIC DAILY PO) Take by mouth. SYNTHROID 50 MCG tablet Take 1 tablet by mouth Daily. tamsulosin (FLOMAX) 0.4 mg CAPS Take 0.4 mg by mouth daily (after breakfast). TAURINE PO Take 1,500 mg by mouth 2 times daily. Six caps daily; [DISCONTINUED] Testosterone Cypionate (DEPO-TESTOSTERONE IM) Twice a week. thyroid (ARMOUR THYROID) 60 MG tablet Take 60 mg by mouth. 75mg in am and 30mg in pm UNABLE TO FIND Med Name:" ELEMIS CELLUTOX BODY OIL " - per patient 01/20/16 it is part of a detox regimen UNCODED MEDICATION Diagnosis: Obstructive Sleep Apnea ICD-9: 327.23 Length of Need: 99 Months 1 Device 0 warfarin (COUMADIN) 5 mg tablet Take by mouth See Admin Instructions. As directed by Dylan TA No facility-administered encounter medications on file as of 01/20/2016. ALLERGIES Allergies Allergen Reactions Flecainide Other (See Comments) AFTER 1ST ABLATION, HAD LEG SWELLING, INCREASED HEART RATE Amoxicillin Rash ROS 14 point ROS was completed and is negative except for: fatigue, hearing loss, ankle swellin g, frequency, and muscle pain. PHYSICAL EXAM BP 130/70 mmHg | Pulse 75 | Ht 1.778 m (5' 10") | Wt 102.059 kg (225 lb) | BMI 32.28 kg/m2 Body mass index is 32.28 kg/(m^2). GENERAL: Pleasant appearing in no apparent distress HEENT: Conjunctivae and lids are normal in appearance. Pharynx: benign Eyes: Extraocular movements intact. NECK: Supple, no JVD, Carotids are 2+ and brisk bilaterally without bruits. LUNGS: Full expansion. Clear to auscultation. CHEST: Non-tender. Pacemaker site left chest well healed. CARDIAC: PMI is non-displaced. Regular rate and rhythm with S1 normal, S2 normal. 1/6 sys tolic murmur at lower sternal border. No rubs or gallops. Blood pressures are equal in upper extremities. ABDOMEN: Soft, non-tender, nondistended with normal, active bowel sounds. Normal abdominal pulsation without bruit. EXTREMITIES: No clubbing, cyanosis, 2+ edema bilaterally. PULSES: PT 2+ left, 1-2+ right NEUROLOGIC: Non-focal. Patient is oriented to time, place, and person. Normal affect. SKIN: No rashes or skin breakdown. No bruising. MUSCULOSKELETAL: Back - no CVA or paravertebral tenderness. Muscle strength is equal bilate rally. EKG 01/20/2016: Rhythm: V-paced. Rate: 75 bpm. [place]: -65 degrees. QRS: .128. QT: .386. QTC: .412. Interpretation: Underlying atrial fibrillation. In comparison to the prior EKG, from 05/01/14 V-paced relpaced intrinsic conduction. ECHO preliminary report: EF 55%. Mild to moderate mitral regurgitation. Aortic valve biopro sthesis fucntioning normally with peak/mean 10/6 gradient. Trace aortic insufficiency. Moder ate tricuspid regurgitation. PAP 29-34. Last remote monitoring from 11/19/15: Histogram was blunted. V-Paced 64% Battery life: 11.5 years LABS Lab Results Component Value Date WBC [...] contact me. This encounter was documented by Zaki Alvarado , scribing for and in the presence of Suleiman Kunz MD who is performing the service. Attested at 01/20/2016 15:22 Electronically signed by: Zaki Alvarado 01/20/2016 13:31 Signed by: Augusto Kunz MD 01/20/2016, 15:22 Patient Care Team: Tayo Robles DO as PCP - General (Family Medicine - Sports Medicine) KENNETH Givens (Physician Pulper) Augusto Kunz MD as Physician (Cardiology) documented [...] 12 LEAD - PB | Routin | 01/20/2016 | Atrial | Results for this | | | e | 1:32 PM | fibrillation, | procedure are in the | | | | PDT | unspecified type | results section. | | | | | (HCC) | | + +--------+ + + + | ECG - EXTERNAL SCAN | | 01/20/2016 | | Results for this | | | | 12:00 AM | | procedure are in the | | | | PDT | | results section. | + +--------+ + + + documented in this encounter Results ECG 12 lead (01/20/2016 1:32 PM PDT) + + + | Narrative | Performed At | + + + | Martha Person, Fan Installer 01/20/2016 13:32 See scanned | | | tracing for the provider's interpretation of EKG. | | + + + ECG - EXTERNAL SCAN (01/20/2016 12:00 AM PDT) + + + | [...] of aortic valve | + + | Essential hypertension, hypertension with unspecified goal | + + documented in this encounter
--- OUTSIDE RECORDS SUMMARY | ~2019-10-21 | XMS | Encounter Summary ---
Demographics + + + | Address | [address] | | | [place] [address] | + + + | Home Phone [...] | Author | [facility] | | | and Jose Enriqueana | + + + | Organization | [facility] | [...] [address] | | | [address] | | [place], [place] | | | | | [address] | | + + + + + | Rickey Bui | ECON | [address] [place], [place] | | | | | [address] | | + + + + + Care Team Providers + +------+ + | Care Nca Certified Concierge Name | Role | Phone | + [...] Medication Refill | | 2019 | | [facility] | MD Conchis [address] [place] [address] | | | | | [address] | [place] [address] | | | | | [address] | [place] [address] | | | | | [address] | [phone] | | | | | [phone] | | | +--------+--------+ + + + [...]
--- OUTSIDE RECORDS SUMMARY | ~2019-10-21 | XMS | Encounter Summary ---
Demographics + + + | Address | [address] | | | [place] [address] | + + + | Home Phone [...] Author | [facility] | | | and Jose Enriqueana | + + + | Organization | [facility] | | [...] [address] | | | [place] | | [address], [place] | | | | | [address] | | + + + + + | Rickey uBi | ECON | [address] [place], [place] | | | | | [address] | | + + + + + Care Team Providers + +------+ + | Care Line Controller Name | Role | Phone | + +------+ + | Tayo Robles DO | PCP | | + +------+ + Reason for Visit + + + | Reason | Comments | + + + | Device Check | Medtronic - not billed | + + + Follow Up (Routine) +--------+--------+ + + + + | Status | Reason | Specialty | Diagnoses / | Referred By | Referred To | | | | | Procedures | Contact | Contact | +--------+--------+ + + + + | Closed | | Cardiology | Diagnoses | [facility] | | | | | 3/3rds Per | [facility] | Cardiology | | | | | HRG 3 mo | CARDIOLOGY | [place] | | | | | follow up | [facility] [address] | [address] | | | | | for afib | [address] | [address] | | | | | Procedures | [address] | [place] | | | | | ov and | [place] | | | | | | device check | [address] | Phone: | | | | | | | [phone] | | | | | | | Fax: | | | | | | | [phone] | +--------+--------+ + + + + Encounter Details +--------+ + + + + | Date | Type | Department | Care Team | Description | +--------+ + + + + | 11/13/ | Procedure | [facility] | | Pacemaker - | | 2013 | visit | [facility] | | Medtronic - ADDRL1 | | | | [address] | | Adapta - Implanted | | | | [address] [place], [place] | | 02/27/2012 DO NOT | | | | [address] | | RESOLVE (Primary | | | | [phone] | | Dx); Sinoatrial node | | [...] 2020 | Visit | | [address] | | | | | | [place] | | | | | | [address] | | | | | | | | +--------+---------+ + + + documented as of this encounter Procedures + +--------+ + + + | Procedure Name | Priori | Date/Time | Associated Diagnosis | Comments | | | ty | | | | + +--------+ + + + | DEVICE INTERROGATION | Routin | 01/10/2014 | Pacemaker - | Results for this | | | e | 1:46 PM | Medtronic - ADDRL1 | procedure are in the | | | | PDT | Adapta - Implanted | results section. | | | | | 02/27/2012 DO NOT | | | | | | RESOLVE Sinoatrial | | | | | | node dysfunction | | | | | | ([facility]) DO NOT DELETE. | | + +--------+ + + + documented in this encounter Results Device Interrogation (01/10/2014 1:46 PM PDT) + + + | Narrative | Performed At | + + + | Luisachi Martinez VTealet 01/10/2014 13:46 PATIENT NAME: Prabhjot | | | Jesus Bui : 1945: AGE: 68 y.o. | | | Pacemaker Evaluation Report November 13, 2013 Reason for | | | evaluation: routine Indication for pacemaker: ICD-9-CM 1. | | | Pacemaker - Medtronic - ADDRL1 Adapta - Implanted 02/27/2012 DO NOT | | | RESOLVE V45.01 Device Interrogation 2. Sinoatrial node dysfunction | | | ([facility]) DO NOT DELETE. 427.81 Device Interrogation Patient was | | | seated and device was interrogated. Pacemaker parameters, battery | | | status, percentages pacing and significant arrhythmias were | | | reviewed. Heart rate histograms were assessed for adequate heart | | | rate response and any alerts reviewed. Appropriate lead impedance | | | testing was performed. Pacing impedances were reviewed for any | | | significant changes. Sensing tests were performed by decreasing LRL. | | | Adequacy of pacing thresholds were tested by increasing LRL for | | | each lead and recorded for loss of capture. Final outputs were | | | assessed for adequate safety margins. Please see the attached | | | Paceart report. Dr. Joel Moise MD has supervised and | | | interpreted this device check. | | + + + + + | Procedure Note | + + | Luisa Martinez V, Technologist - 01/10/2014 1:45 PM PDT Formatting of this note might | | be different from the original.PATIENT NAME: Prabhjot Bui : 1945: | | AGE: 68 y.o.Pacemaker Evaluation ReportJune 2013Reason for evaluation: | | routineIndication for pacemaker: ICD-9-CM 1. Pacemaker - Medtronic - ADDRL1 Adapta - | | Implanted 02/27/2012 DO NOT RESOLVE V45.01 Device Interrogation 2. Sinoatrial node | | dysfunction (HCC) DO NOT DELETE. 427.81 Device Interrogation Patient was seated and [...] supervised and interpreted this device check. | |2. Sinoatrial node dysfunction (HCC) DO NOT DELETE. 427.81 Device Interrogation | | | | [...]
--- OUTSIDE RECORDS SUMMARY | ~2019-10-21 | XMS | Encounter Summary ---
Demographics + + + | Address | [address] | | | [place] [address] | + + + | Home Phone | | + + + | Preferred Language | Unknown | + + + | Marital Status | | + + + | Methodist Affiliation | 1009 | + + + | Race | Unknown | + + + | Ethnic Group | Unknown | + + + Author + + + | Author | [facility] | | | and Jose Enriqueana | + + + | Organization | [facility] | | [...] [address] | | | [address] | | [address], [place] | | | | | [address] | | + + + + + | Rickey Bui | ECON | [address] [place], [place] | | | | | [address] | | + + + + + Care Team Providers + +------+ + | Care Commercial Lines Assistant Name | Role | Phone | + +------+ + | Tayo Robles DO | PCP | | + +------+ + Encounter Details +--------+ + + + + | Date | Type | Department | Care Team | Description | +--------+ + + + + | 10/30/ | Orders Only | [facility] | Joel Moise | | | 2008 | | [facility] | MD [address] | | | | | [address] | [address] | | | | | [facility] [address] [address] | [place] [address] | | | | | [address] | [phone] | | | | | [phone] | | | +--------+ + + + [...] SERVIN | | | | | | [address] | | | | | | | | +--------+---------+ + + + documented as of this encounter Procedures + +--------+ + + + | Procedure Name | Priori | Date/Time | Associated Diagnosis | Comments | | | ty | | | | + +--------+ + + + | HISTORICAL LAB PANEL | Routin | 07/02/2009 | | Results for this | | RESULT | e | | | procedure are in the | | | | | | results section. | + +--------+ + + + | HISTORICAL LAB PANEL | Routin | 10/30/2008 | | Results for this | | RESULT | e | | | procedure are in the | | | | | | results section. | + +--------+ + + + documented in this encounter Results HISTORICAL LAB PANEL RESULT (07/02/2009) + +-------+ + + + | Component | Value | Ref Range | Performed | Pathologist | | | | | At | Signature | + +-------+ + + + | Fibrinogen | 306 | | EXTERNAL | | | | | | LAB | | + +-------+ + + + | T3, Free | 3.7 | | EXTERNAL | | | | | | LAB | | + +-------+ + + + | CRP, High | 1.1 | | EXTERNAL | | | Sensitive | | | LAB | | + +-------+ + + + | Prealbumin | 24 | | EXTERNAL | | | | | | LAB | | + +-------+ + + + | T3, Total | 114 | | EXTERNAL | | | | | | LAB | | + +-------+ + + + | TSH | 7.49 | | EXTERNAL | | | | | | LAB | | + +-------+ + + + | T4, Total | 6.1 | | EXTERNAL | | | | [...] +---------+ + + HISTORICAL LAB PANEL RESULT (10/30/2008) + +-------+ + + + | Component | Value | Ref Range | Performed | Pathologist | | | | | At | Signature | + +-------+ + + + | INR | 1.7 | | EXTERNAL | | | | | | LAB | | + +-------+ + + + | Protime | 20.8 | | EXTERNAL | | | | [...]
--- OUTSIDE RECORDS SUMMARY | ~2019-10-21 | XMS | Encounter Summary ---
Demographics + + + | Address | [address] | | | [place] [address] | + + + | Home Phone | | + + + | Preferred Language | Unknown | + + + | Marital Status | | + + + | Rastafari Affiliation | 1009 | + + + | Race | Unknown | + + + | Ethnic Group | Unknown | + + + Author + + + | Author | [facility] | | | and Jose Enriqueana | + + + | Organization | [facility] | | | and Jose Enriqueana | + + + | Address | Unknown | + + + | Phone | Unavailable | + + + Support + + + + + | Name | Relationship | Address | Phone | + + + + + | Sharlene Lagunas | ECON | [address] | | | [place] | | [place], [place] | | | | | [address] | | + + + + + | Rickey Bui | ECON | [address] [place], [place] | | | | | [address] | | + + + + + Care Team Providers + +------+ + | Care Tankage Grinder Operator Name | Role | Phone | [...] Description | +--------+---------+ + + + | 06/09/ | Office | [facility] | Rickey Zaragoza PA | ABAD on CPAP (Primary | | 2016 | Visit | SLEEP DISORDER [address] | [address] | Dx) | | | | [address] [place] | [place] | | | | | [place] [address] | [address] | | | | | [phone] | | | +--------+---------+ + + + [...] + + + | Blood Pressure | 122/64 | 06/09/2015 10:33 AM | | | | | PST | | + + + + + | Pulse | 88 | 06/09/2015 10:33 AM | | | | | PST | | + + + + + | Temperature | - | - | | + + + + + | Respiratory Rate | 16 | 06/09/2015 10:33 AM | | | | | PST | | + + + + + | Oxygen Saturation | - | - | | + + + + + | Inhaled Oxygen | - | - | | | Concentration | | | | + + + + + | Weight | 109 kg (240 lb 3.2 | 06/09/2015 10:33 AM | | | | oz) | PST | | + + + + + | Height | - | - | | + + + + + | Body Mass Index | 34.47 | 06/03/2015 10:53 AM | | | | | PST | | + + + + + documented in this encounter Progress Notes Rickey Zaragoza PA - 06/09/2015 10:23 AM PST Subjective: Patient ID: Prabhjot Bui is a 69 y.o. male. HPI last office visit was: 11/19/2014 date of polysomnography: 03/01/2004 AHI: 14.0 (35.3 during REM) O2%: 90% Machine type: ResMed S9 with full face mask obtained from: [facility] in [place] pressure is: 6-16 cm Median: 6.6 cm 95%: 8.8 cm maxium: 9.6 cm Nights using CPAP: 361/365 154/162 175/182 193/202 % of nights >4 hours: 86% 50% 31% 40% Average usage (all nights): 5:24 3:55 3:13 3:27 average usage (nights used): 5:28 4:07 3:21 AHI: 3.1 Prabhjot comes in for CPAP compliance. He continues to wear his CPAP regularly. He has starte d to develop it into a regular part of his sleep routine. He struggled with wearing it for the duration of his sleep for much of the last 7 months, but has done well during the last m onth. He is getting more comfortable with it and feels that it is helping him sleep better. He feels that he is doing better because he has started breathing through his nose more ea sily. I have discussed the download and results of the paperwork in detail. The download shows t hat his sleep apnea is well controlled, with an AHI of 3.1. It also shows that his leaks ar e well controlled. Review of Systems Objective: Physical Exam Assessment: Problem #1: OBSTRUCTIVE SLEEP APNEA (HMA05-E42.33) This is well controlled with CPAP. His CPAP compliance is going well. Plan: 1. He is to continue with CPAP indefinitely. I have recommended that he touch base with h is medical supplier twice per year to ensure that his equipment is satisfactory. I will follow up again in 1 year, sooner prn. At that time we will reassess with all appro priate paperwork. Fifteen minutes were spent pihb-to-bedb, with the majority of time spent in counseling. Rickey Zaragoza PA-C Cc: Dr. Tayo Robles Maxine Moya, [facility] - 06/09/2015 10:14 AM PST 06/09/15 1000 Jules Depression Inventory-II Depression Score 10 - Minimal depression Insomnia Severity Index Insomnia Severity Index 13 [place] Sleepiness Scale Sitting and reading 2 Watching TV 1 Sitting, inactive in a public place (e.g. a theatre or a meeting) 2 As a passenger in a car for an hour without a break 1 Lying down to rest in the afternoon when circumstances permit 2 Sitting and talking to someone 2 Sitting quietly after a lunch without alcohol 1 In a car, while stopped for a few minutes in traffic 0 Total score 11 SF-36v2 Score PF 38.4 RP 32.46 BP 34.18 GH 45.1 VT 37.74 SF 32.27 RE 45.72 MH 50.87 PCS 33.09 MCS 47.36 documented in this enco unter Plan of [...] SERVIN | | | | | | [id number] | | | | | | | | +--------+---------+ + + + documented as of this encounter Visit Diagnoses + + | Diagnosis | + + | ABAD on CPAP - Primary Obstructive sleep apnea (adult) (pediatric) | + + documented in this encounter"
--- OUTSIDE RECORDS SUMMARY | ~2019-10-21 | XMS | Encounter Summary ---
Demographics + + + | Address | [address] | | | [place] [address] | + + + | Home Phone | | + + + | Preferred Language | Unknown | + + + | Marital Status | | + + + | Spiritism Affiliation | 1009 | + + + | Race | Unknown | + + + | Ethnic Group | Unknown | + + + Author + + + | Author | [facility] | | | and Jose Enriqueana | + + + | Organization | [facility] | [...] [address] | | | [place] | | [address], [place] | | | | | [address] | | + + + + + | Rickey Bui | ECON | [address] [place], [place] | | | | | [address] | | + + + + + Care Team Providers + +------+ + | Care Instructor Of Education Name | Role | Phone | + [...] | | 2018 | | [facility] | MD Conchis [address] [place] [address] | | | | | [facility] [address] | [facility] [address] | | | | | [place] [address] [place] | [place] [address] | | | | | [address] | [phone] | | | | | [phone] | | | +--------+--------+ + + + [...] | | | | | [place] | | | | | | [address] | | | | | | | | +--------+---------+ + + + documented as of this encounter Visit Diagnoses + + | Diagnosis | + + | Hypertension - Primary Unspecified essential hypertension | + + documented in this encounter"
--- OUTSIDE RECORDS SUMMARY | ~2019-10-21 | XMS | Encounter Summary ---
Demographics + + + | Address | [address] | | | [place] [address] | + + + | Home Phone | | + + + | Preferred Language | Unknown | + + + | Marital Status | | + + + | Amish Affiliation | 1009 | + + + | Race | Unknown | + + + | Ethnic Group | Unknown | + + + Author + + + | Author | [facility] | | | and Jose Enriqueana | + + + | Organization | [facility] | | | and Jose Enriqueana | + + + | Address | Unknown | + + + | Phone | Unavailable | + + + Support + + + + + | Name | Relationship | Address | Phone | + + + + + | Sharlene Lagunas | ECON | [address] | | | [place] | | [facility] [place] | | | | | [address] | | + + + + + | Rickey Bui | ECON | [address] [place], [place] | | | | | [address] | | + + + + + Care Team Providers + +------+ + | Care Waiter Waitress Name | Role | Phone | + +------+ + | Tayo Robles DO | PCP | | + +------+ + Reason for Visit + + + | Reason | Comments | + + + | Device Check | remote scheduled | | (Remote) | | + + + Encounter Details +--------+ + + + + | Date | Type | Department | Care Team | Description | +--------+ + + + + | 01/24/ | Telephone | [facility] | Delio, | Device Check | | 2018 | | [facility] [place] | Blaire, | (Remote) (remote | | | | [address] | Technologist | scheduled) | | | | [place] [address] [place] | | | | | | [address] | | | | | | [phone] | | | +--------+ + + + [...] SERVIN | | | | | | [id number] | | | | | | | | +--------+---------+ + + + documented as of this encounter Visit Diagnoses Not on filedocumented in this encounter"
--- OUTSIDE RECORDS SUMMARY | ~2019-10-21 | XMS | Encounter Summary ---
Demographics + + + | Address | [address] | | | [place] [address] | + + + | Home Phone | | + + + | Preferred Language | Unknown | + + + | Marital Status | | + + + | Yazidi Affiliation | 1009 | + + + | Race | Unknown | + + + | Ethnic Group | Unknown | + + + Author + + + | Author | [facility] | | | and Jose Enriqueana | + + + | Organization | [facility] | [...] [address] | | | [place] | | [address], [place] | | | | | [address] | | + + + + + | Rickey Bui | ECON | [address] [place], [place] | | | | | [address] | | + + + + + Care Team Providers + +------+ + | Care Risk Control Consultant Name | Role | Phone | [...] Description | +--------+--------+ + + + | 12/27/ | Refill | [facility] | Joel Moise | Medication Refill | | 2016 | | [facility] | MD Conchis [address] [place] [address] | | | | | [facility] [address] | [facility] [address] | | | | | [place] [address] [place] | [place] [address] | | | | | [address] | [phone] | | | | | [phone] | | | +--------+--------+ + + + [...] 2019 | Visit | | [address] | | | | | | [place] | | | | | | [address] | | | | | | | | +--------+---------+ + + + documented as of this encounter Visit Diagnoses + + | Diagnosis | + + | Essential hypertension, hypertension with unspecified goal - Primary | + + documented in this encounter"
--- OUTSIDE RECORDS SUMMARY | ~2019-10-21 | XMS | Encounter Summary ---
Demographics + + + | Address | [address] | | | [place] [address] | + + + | Home Phone [...] + | Author | [facility] | | | and Jose Enriqueana | + + + | Organization | [facility] | | | and Jose Enriqueana | + + + | Address | Unknown | + + + | Phone | Unavailable | + + + Support + + + + + | Name | Relationship | Address | Phone | + + + + + | Sharlene Lagunas | ECON | [address] | | | [place] | | [address], [place] | | | | | [address] | | + + + + + | Rickey Bui | ECON | [address] [place], [place] | | | | | [address] | | + + + + + Care Team Providers + +------+ + | Care Carbon Coater Machine Operator Name | Role | Phone [...] 02/18/ | Implant | [facility] | Ila Vasquez, | Sinoatrial node | | 2018 | Monitor | [facility] | RN | dysfunction (HCC) | | | | [address] | | (Primary Dx); | | | | [place] B3200 [place] S[place] | | Cardiac pacemaker in | | | | [place] | | situ | | | | [address] | | | | | | [phone] | | | +--------+ + + + [...] SERVIN | | | | | | [address] | | | | | | | [...] Baker | ASHLEY | | ANASTASIYA Vasquez 02/18/2018 16:23 PATIENT NAME: Prabhjot Lee | | | [place] : 1945: AGE: 72 y.o. Remote | | | Pacemaker Evaluation Report January 10, 2018 Reason for evaluation: | | | routineIndication [...] atrial | | | fibrillation/flutter with irregular LABEL DRIER/VS. LABEL DRIER 54.2%. On | | | anticoagulation. Heart rate histograms appear somewhat broad with | | | ~25% >110 bpm. Battery status: satisfactory. Voltage: 2.79 V. | | | Estimated remaining longevity: 8 years. Lead impedance appears | | | within normal limits.Events noted since 08/11/17: 2 VHR, 10-46 seconds, | | | 180 bpm. EGMs are atrial only showing AT/AF, no ventricular | | | EGMs.Device function appears appropriate. Consider changing the EGM | | | storage to ventricular at the next device check.Remote follow-up in 3 | | | months. Supervising and interpreting physician for this remote,Joel | | | Conchis Moise MD | | | | | |Settings | | | | | |Mode: VVIR, 70 (130) | | |Ventricular Output: 2.0V @ 0.4ms (adaptive) | | | | | |Data | | | | | |Presenting rhythm is atrial fibrillation/flutter with irregular | | |LABEL DRIER/VS. LABEL DRIER 54.2%. On anticoagulation. Heart rate histograms | | |appear somewhat broad with ~25% >110 bpm. | | |Battery status: satisfactory. Voltage: 2.79 V. Estimated | | |remaining longevity: 8 years. Lead impedance appears within | | |normal limits. | | |Events noted since 08/11/17: | | | 2 VHR, 10-46 seconds, 180 bpm. EGMs are atrial only showing | | |AT/AF, no ventricular EGMs. | | |Device function appears appropriate. Consider changing the EGM | | |storage to ventricular at the next device check. | | |Remote follow-up in 3 months. [...]
--- OUTSIDE RECORDS SUMMARY | ~2019-10-21 | XMS | Encounter Summary ---
Demographics + + + | Address | [address] | | | [place] [address] | + + + | Home Phone | | + + + | Preferred Language | Unknown | + + + | Marital Status | | + + + | Religion Affiliation | 1009 | + + + | Race | Unknown | + + + | Ethnic Group | Unknown | + + + Author + + + | Author | [facility] | | | and Jose Enriqueana | + + + | Organization | [facility] | | | and Jose Enriqueana | + + + | Address | Unknown | + + + | Phone | Unavailable | + + + Support + + + + + | Name | Relationship | Address | Phone | + + + + + | Sharlene Lagunas | ECON | [address] | | | [place] | | [address], [place] | | | | | [address] | | + + + + + | Rickey Bui | ECON | [address] [place], [place] | | | | | [address] | | + + + + + Care Team Providers + +------+ + | Care Sanding Machine Operator Or Tender Name | Role | Phone | [...] | NOT DELETE. | | | | [place] [address] [place] | | (Primary Dx); | | | | [address] | | Pacemaker - | | | | [phone] | | Medtronic - [id number] | | [...] SERVIN | | | | | | [id number] | | | | | | | [...] is atrial | | | fibrillation with RADIOACTIVE WASTE DISPOSAL DISPATCHER and single VS. AP 10.9%. RADIOACTIVE WASTE DISPOSAL DISPATCHER 60.5%. Heart | | | rate histograms [...] | |Presenting rhythm is atrial fibrillation with RADIOACTIVE WASTE DISPOSAL DISPATCHER and single VS. | | |AP 10.9%. RADIOACTIVE WASTE DISPOSAL DISPATCHER 60.5%. Heart rate histograms appear appropriate. | [...] ICD-9-CM 1. Sinoatrial node dysfunction | | ([facility]) DO NOT DELETE. 427.81 Device Interrogation 2. [...] @ 0.4msDataPresenting rhythm is atrial fibrillation with RADIOACTIVE WASTE DISPOSAL DISPATCHER and single VS. AP 10.9%. | | RADIOACTIVE WASTE DISPOSAL DISPATCHER 60.5%. Heart rate histograms appear appropriate. Battery [...] | |Presenting rhythm is atrial fibrillation with RADIOACTIVE WASTE DISPOSAL DISPATCHER and single VS. AP 10.9%. RADIOACTIVE WASTE DISPOSAL DISPATCHER 60.5%. Hear t rate histograms appear appropriate. [...]
--- OUTSIDE RECORDS SUMMARY | ~2019-10-21 | XMS | Encounter Summary ---
Demographics + + + | Address | [address] | | | [place] [address] | + + + | Home Phone [...] Author | [facility] | | | and Jose Enriqueana | + + + | Organization | [facility] | | | and Jose Enriqueana | + + + | Address | Unknown | + + + | Phone | Unavailable | + + + Support + + + + + | Name | Relationship | Address | Phone | + + + + + | Sharlene Lagunas | ECON | [address] | | | [place] | | [place], [place] | | | | | [address] | | + + + + + | Rickey Bui | ECON | [address] [place], [place] | | | | | [address] | | + + + + + Care Team Providers + +------+ + | Care Automation Software Engineer Name | Role | Phone | [...] Closed | | Radiology | Diagnoses | Katrin, | [facility] | | | | | Edema, | Mary M, | [address] | | | | | unspecified | PA-C [address] | [place], | | | | | type | AVE | [place] | | | | | Fatigue, | [address] | [address] | | | | | unspecified | [place] | Phone: | | | | | type S/P | [address] | [phone] | | | | | AVR | Phone: | Fax: | | | | | Procedures | [phone] | [phone] | | | | | ECHO | Fax: | | | | | | Complete | [phone] | | +--------+--------+ + + + + Reason for Visit Diagnostic/Screening (Routine) +--------+--------+ + + + + | Status | Reason | Specialty | Diagnoses / | Referred By | Referred To | | | | | Procedures | Contact | Contact | +--------+--------+ + + + + | Closed | | Radiology | Diagnoses | Kartin, | [facility] | | | | | Edema, | Mary M, | [address] | | | | | unspecified | PA[address]C [address] | [place], | | | | | type | [address] | [place] | | | | | Fatigue, | [address] | [address] | | | | | unspecified | [place], [place] | Phone: | | | | | type S/P | [address] | [phone] | | | | | AVR | Phone: | Fax: | | | | | Procedures | [phone] | [phone] | | | | | ECHO | Fax: | | | | | | Complete | [phone] | | +--------+--------+ + + + + Encounter Details +--------+ + + + + | Date | Type | Department | Care Team | Description | +--------+ + + + + | 04/23/ | Hospital | [facility] | Joel Moise | Edema, unspecified | | 2018 | Encounter | [facility] [address] | MD Conchis [address] | type; Fatigue, | | | | [address] [place] | [address] | unspecified type; | | | | [place] [address] | [place] [address] | S/P AVR | | | | [phone] | [phone] | | | | | | | | | | | | Juhi Martinez, | | | | | | Internal Medicine Specialist | | +--------+ + + + + [...] | | | | | | | O-Irtuew-Reftzols | | | | | | | [...] TAKE 1 TABLET DAILY | 90 | 0 | 06/12/19 | | | 250 mcg | | tablet | | 18 | 8 | | tabletIndications: | | | | [...] + +---------+ + + | metoprolol | TAKE 1 AND 05/23 | 90 | 3 | 06/27/19 | | | succinate | TABLETS DAILY | tablet | | 18 | 8 | | (TOPROL-XL) 50 mg 24 | [...] 2019 | Visit | | [address] | | | | | | [place] | | | | | | [address] | | | | | | | | +--------+---------+ + + + documented as of this encounter Procedures + +--------+ + + + | Procedure Name | Priori | Date/Time | Associated Diagnosis | Comments | | | ty | | | | + +--------+ + + + | ECHO COMPLETE | Routin | 09/11/2017 | Edema, unspecified | Results for this | | | e | 4:00 PM | type Fatigue, | procedure are in the | | | | PDT | unspecified type | results section. | | | | | S/P AVR | | + +--------+ + + + [...] Room Number JAZMIN | | | Patient [id number] Date of Study | | | 09/11/2017 Number Visit Number [id number] Accession | | | [id number] Referring Physician KATRIN Crawford Number | | | Date of 1945 Manager Latin GRAZYNA | | | GISELL WAGNER Age 71 year(s) Interpreting | | | GODWIN WAGNER, | | | Demolition Specialist Gender Male | | | Nurse | | | Stress Hook Up Driver Procedure Type of Study TTE procedure: ECHO [...] significant aortic valve | | | insufficiency.6. Pvdh-tt-zgkuixiu tricuspid valve regurgitation.7. | | | Borderline [...] bioprosthetic aortic valve | | | replacement.Tricuspid OothlXmap-gb-uhtbvopt tricuspid regurgitation | | | suggestive of [...] 0.9 cm PW Diastolic: 0.9 cm EF Qjzljquqz96% Miscellaneous Aorta | | | Aortic Root: [...] replacement. | | |Tricuspid Valve | | |Gyom-sc-jzengjua tricuspid regurgitation suggestive of a mildly elevated [...] Diastolic: 0.9 cm | | | EF Xfrrzxitg97% | | | | | | Miscellaneous [...] LAZARO Room Number JAZMIN | | Patient [id number] Date of Study 09/11/2017 Number Visit Number | | [id number] Referring Physician KATRIN Crawford | | Number Date of 1945 Manager Latin GRAZYNA WAGNER [facility] Age | | 71 year(s) Interpreting GODWIN WAGNER, | | Demolition Specialist Gender Male Nurse | | Stress TechnicianProcedureType [...] No significant aortic valve insufficiency.6. | | Mtom-tb-tzfkjcpn tricuspid valve regurgitation.7. Borderline pulmonary hypertension with [...] of bioprosthetic aortic valve | | replacement.Tricuspid KuwbmTqaj-cx-sfxwxedg tricuspid regurgitation suggestive of a | | [...] 0.9 cm PW Diastolic: 0.9 cm EF Zwhytolmu19% Miscellaneous Aorta Aortic Root: | | 3.3 [...] No significant aortic valve insufficiency. | |6. Akqn-gs-bmogzhbl tricuspid valve regurgitation. | |7. Borderline pulmonary [...] aortic valve replacement. | |Tricuspid Valve | |Scvv-zr-nriicosi tricuspid regurgitation suggestive of a mildly elevated [...] PW Diastolic: 0.9 cm | | EF Jmkmbwmkq39% | | | | Miscellaneous | | [...] | + + | Edema, unspecified type | + + | Fatigue, unspecified type | + + | S/P AVR Heart valve replaced by other means | + + documented in this encounter"
--- OUTSIDE RECORDS SUMMARY | ~2019-10-21 | XMS | Encounter Summary ---
Demographics + + + | Address | [address] | | | [place] [address] | + + + | Home Phone | | + + + | Preferred Language | Unknown | + + + | Marital Status | | + + + | Latter-Day Affiliation | 1009 | + + + | Race | Unknown | + + + | Ethnic Group | Unknown | + + + Author + + + | Author | [facility] | | | and Jose Enriqueana | + + + | Organization | [facility] [...] [address] | | | [place] | | [place], [place] | | | | | [address] | | + + + + + | Rickey Bui | ECON | [address] [place], [place] | | | | | [address] | | + + + + + Care Team Providers + +------+ + | Care Scroll Shear Operator Name | Role | Phone | [...] | | 2013 | Monitor | [facility] | J, Technologist | situ (Primary Dx); | | | | [address] | | Atrial fibrillation | | | | [address] [place] | | ([facility]) | | | | [address] | | | | | | [phone] | | | +--------+ + + + [...] | | | | | | [place], [place] | | | | | | [address] | | | | | | | [...] PATIENT NAME: Prabhjot Lee | | | [facility] 1945: AGE: 68 y.o. Remote | [...] | Presenting rhythm is Atrial Flutter with MIXER WET POUR/VS. Frequent blanked | | | flutter waves are noted (blanked flutter search is On). AP 15.7%. | | | MIXER WET POUR 67.9%. Heart rate histograms appear appropriate. Battery [...] | |Presenting rhythm is Atrial Flutter with MIXER WET POUR/VS. Frequent blanked | | |flutter waves are noted (blanked flutter search is On). AP | | |15.7%. MIXER WET POUR 67.9%. Heart rate histograms appear appropriate. | [...] | 0.4msDataPresenting rhythm is Atrial Flutter with MIXER WET POUR/VS. Frequent blanked flutter waves | | are noted (blanked flutter search is On). AP 15.7%. MIXER WET POUR 67.9%. Heart rate histograms | | appear [...] | |Presenting rhythm is Atrial Flutter with MIXER WET POUR/VS. Frequent blanked flutter waves are noted ( blanked flutter search is On). AP 15.7%. MIXER WET POUR 67.9%. Heart rate histograms appear appropria te. [...]
--- OUTSIDE RECORDS SUMMARY | ~2019-10-21 | XMS | Encounter Summary ---
Demographics + + + | Address | [address] | | | [place] [address] | + + + | Home Phone [...] | Author | [facility] | | | and Jose Enriqueana | + + + | Organization | [facility] | | | and Jose Enriqueana | + + + | Address | Unknown | + + + | Phone | Unavailable | + + + Support + + + + + | Name | Relationship | Address | Phone | + + + + + | Sharlene Lagunas | ECON | [address] | | | [place] | | [place], [place] | | | | | [address] | | + + + + + | Rickey Bui | ECON | [address] [place], [place] | | | | | [address] | | + + + + + Care Team Providers + +------+ + | Care Coal Digger Name | Role | Phone | + [...] Refill | | 2016 | | [facility] | MD Conchis [address] [place] [address] | | | | | [facility] [address] | [facility] [address] | | | | | [place] [address] [place] [address] | [place] [address] | | | | | [address] | [phone] | | | | | [phone] | | | +--------+--------+ + + + [...] 2019 | Visit | | [address] | | | | | | [place] | | | | | | [address] | | | | | | | | +--------+---------+ + + + documented as of this encounter Visit Diagnoses + + | Diagnosis | + + | Atrial fibrillation, unspecified - Primary | + + documented in this encounter"
--- OUTSIDE RECORDS SUMMARY | ~2019-10-21 | XMS | Encounter Summary ---
Demographics + + + | Address | [address] | | | [place] [address] | + + + | Home Phone [...] | [facility] | | | and Jose Enriqueana | + + + | Organization | [facility] | | | and Jose Enriqueana | + + + | Address | Unknown | + + + | Phone | Unavailable | + + + Support + + + + + | Name | Relationship | Address | Phone | + + + + + | Sharlene Lagunas | ECON | [address] | | | [place] | | [place], [place] | | | | | [address] | | + + + + + | Rickey Bui | ECON | [address] [place], [place] | | | | | [address] | | + + + + + Care Team Providers + +------+ + | Care Trading Analyst Name | Role | Phone | [...] Appointment | | 2020 | | [facility]ARDIOLOGY [facility] | MD Conchis [address] [place] [address] | | | | | [facility] [address] | AVE [facility] [address] | | | | | [place] [address] [place] [address] | [place] [address] | | | | | [address] | [phone] | | | | | [phone] | | | +--------+ + + + [...] SERV[place] | | | | | | [address] | | | | | | | | +--------+---------+ + + + documented as of this encounter Visit Diagnoses Not on filedocumented in this encounter"
--- OUTSIDE RECORDS SUMMARY | ~2019-10-21 | XMS | Encounter Summary ---
Demographics + + + | Address | [address] | | | [place] [address] | + + + | Home Phone | | + + + | Preferred Language | Unknown | + + + | Marital Status | | + + + | Congregation Affiliation | 1009 | + + + | Race | Unknown | + + + | Ethnic Group | Unknown | + + + Author + + + | Author | and [facility] | | | and Jose Enriqueana | + + + | Organization | and [facility] | | [...] [address] | | | [place] | | [place], [place] | | | | | [address] | | + + + + + | Rickey Bui | ECON | [address] [place], [place] | | | | | [address] | | + + + + + Care Team Providers + +------+ + | Care Packer Fuser Name | Role | Phone | + [...] | Bicuspid | Joel Balderrama, | Pshi Production Utility Worker | | | | | aortic valve | MD [address] | [address] | | | | | Procedures | [address] | [address] [place] | | | | | ECHO | [address] | [address] | | | | | Complete | [place] | [place] | | | | | | [address] | [place] | | | | | | Phone: | [address] | | | | | | [phone] | Phone: | | | | | | Fax: | [phone] | | | | | | [phone] | Fax: | | | | | | | [phone] | +--------+--------+ + + + + Encounter [...] [address] | | | | | [address] | [place] [address] | | | | | [address] | [phone] | | | | | [place], [place] | | | | | | [address] | | | | | | [phone] | | | +--------+ + + + [...] 10/30/ | Office | Sleep Medicine | Harper, Rickey D, PA | | | 2020 | Visit | | [address] | | | | | | [place] | | | | | | [address] | | | | | | | [...]
--- OUTSIDE RECORDS SUMMARY | ~2019-10-21 | XMS | Encounter Summary ---
Demographics + + + | Address | [address] | | | [place] [address] | + + + | Home Phone [...] | Author | [facility] | | | and Jose Enriqueana | + + + | Organization | [facility] | | | and Jose Enriqueana | + + + | Address | Unknown | + + + | Phone | Unavailable | + + + Support + + + + + | Name | Relationship | Address | Phone | + + + + + | Sharlene Lagunas | ECON | [address] | | | [place] | | [place], [place] | | | | | [address] | | + + + + + | Rickey Bui | ECON | [address] [place], [place] | | | | | [address] | | + + + + + Care Team Providers + +------+ + | Care Research Specialist Name | Role | Phone | [...] [place] | MD [address] | dysfunction ([facility]) DO | | | | [place] | [address]VE [address] | NOT DELETE. | | | | [place] [address] | [place] [address] | (Primary Dx); | | | | [address] | [phone] | Pacemaker - | | | | [phone] | | Medtronic - ADDRL1 | | | | | | Adapta - Implanted | | | | | | 02/27/2012 DO NOT | | | | | | RESOLVE; Paroxysmal | | | | | | atrial fibrillation | | | | | | ([facility]); Atrial | | | | | | flutter, unspecified | | | | | | ([facility]); Hx of | | | | [...] vein isolation carried out at the [facility] on 09/01/01. Aortic insufficiency and aortic stenosis [...] SARAVIA; Laterality: N/A; Surgeon: Ty Arzola; Location: [facility] ELECTROP[facility]OLOGY Hip joint replacement Left 05/17/15 [...] degree AV block. Pacemaker Analysis: 06/03/2015 See mapping technician report. Thresholds are good. Outputs are [...] Medicine - Sports Medicine) KENNETH Givens (Physician General Education Professor) Augusto Moise MD as Physician (Cardiology) documented in this encounter Plan of Treatment +--------+---------+ + + + | Date | Type | Specialty | Care Team | Description | +--------+---------+ + + + | 10/30/ | Office | Sleep Medicine | Rickey Zaragoza PA | | | 2019 | Visit | | [address] | | | | | | [place] | | | | | | [phone] | | | | | | | [...]
--- OUTSIDE RECORDS SUMMARY | ~2019-10-21 | XMS | Encounter Summary ---
Demographics + + + | Address | [address] | | | [place] [address] | + + + | Home Phone [...] Author | [facility] | | | and Jose Enriqueana | + + + | Organization | [facility] | [...] SW | | | [place]onel | | [place], [place] | | | | | [address] | | + + + + + | Rickey Bui | ECON | [address] [place], [place] | | | | | [address] | | + + + + + Care Team Providers + +------+ + | Care Ram Car Operator Name | Role | Phone [...] | | | | | (aortic | [place] [address] | [place] | | | | | valve | [address] | [address] | | | | | replacement) | [address] | Phone: | | | | | Medication | [place] | [phone] | | | | | management | [address] | Fax: | | | | | Procedures | Phone: | [phone] | | | | | ECHO | [phone] | | | | | | Complete | Fax: | | | | | | | [phone] | | +--------+--------+ + + + + [...] | | 2019 | Visit | [facility]IOLOGY [facility] | MD [address] | dysfunction ([facility]) DO | | | | [place]4 [address] | [address]VE [address] | NOT DELETE. | | | | [facility] [address] [place] | [place] [address] | (Primary Dx); | | | | [address] | [phone] | Pacemaker - | | | | [phone] | | Medtronic - ADDRL1 | | | | | | Adapta - SN: | | | | | | [id number] Implanted | | | | | | 02/27/2012; Atrial | | | | | | fibrillation, | | | | | | unspecified type | | | | | | ([facility]); Hypertension; | | | | | | [...] 11:20 AM PDTDigoxin level trough Echocardiogram in [facility] Dr. Soto to read See me in [...] moderate TR 29-34 mmHg 3. Echocardiogram 09/11/17 ([facility])- mild biatrial dilatation, EF 65-70%, mild [...] - Medtronic - ADDRL1 Adapta - SN: [id number] Implanted 02/27/2012 - Function is appropriate with [...] 1. Digoxin level trough 2. Echocardiogram in [facility] - Dr. Soto to read 3. See [...] [facility]. Phlebitis Phlebitis - right [...] N/A; Surgeon: Rickey Galvan MD ; Location: [facility] ELECTROPHYSIOLOGY AORTIC ROOT REPLACEMENT AND REIMPLANTATION OF [...] 1 capsule by mouth Daily. Also has B-Twxhat-Jzq teine 250 mg & Pyrroloquinoline PQQ 10 [...] fibrillation, electronic ventricular pacemaker. R ate: 73. [place]: -70 degrees. NC Interval: .N/A. QRS: .132. QT: .392. QTC: .414. Interpretatio n: none further. Pacemaker Analysis: 08/16/2018 See configuration technician report. Thresholds are good. Outputs are [...] (Physician Asst - Certified) KENNETH Givens (Physician Machine Operator) Augusto Kunz MD as Physician (Cardiology) documented in thi s encounter Plan of Treatment +--------+---------+ + + + | Date | Type | Specialty | Care Team | Description | +--------+---------+ + + + | 10/30/ | Office | Sleep Medicine | Rickey Zaragoza PA | | | 2019 | Visit | | [address] [facility] | | | | | | [place] [...] | | | | | | n [place] | | | | | + +---------+ [...] Room Number JAZMIN Patient | | | [id number] Date of Study 10/02/2018 | | | Number Visit Number [id number] | | | Referring Physician Augusto Kunz MD Number | | | [facility] Date of | | | 1945 Round Up Ring Hand WILLEM SHELLY Age | | | 72 year(s) Interpreting SEVEN | | | MD MICHAEL | | | [employer] In[employer] 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 | | | Procedure Type of Study [...] Diastolic: 1.05 cm EF | | | Zjlfozhib54% EF Calculated: 64% Right Ventrical TAPSE: 2.3 [...] Diastolic: 1.05 cm | | | EF Njexemsqp64% | | | EF Calculated: 64% | [...] LAZARO Room Number JAZMIN | | Patient [id number] Date of Study 10/02/2018 Number Visit Number | | [id number] Referring Physician Augusto Kunz MD | | Number [facility] Date of 1945 | | Round Up Ring Hand WILLEM BRAVO Age 72 year(s) Interpreting | | SEVEN RDORIGUEZ MD [employer] In[employer] Gender Male | | Nurse Stress TechnicianProcedureType [...] 1.09 cm PW Diastolic: 1.05 cm EF Dqejghafw72% EF Calculated: 64% Right | | Ventrical [...] PW Diastolic: 1.05 cm | | EF Srbqgabbt04% | | EF Calculated: 64% | | [...] | + + + | Diane Sarabia Quality Management Coordinator 08/15/2018 11:06 Please | | | see [...] - Medtronic - ADDRL1 Enrique - SN: [id number] Implanted 02/27/2012 Cardiac | | pacemaker in [...]
--- OUTSIDE RECORDS SUMMARY | ~2019-10-21 | XMS | Encounter Summary ---
Demographics + + + | Address | [address] | | | [place] [address] | + + + | Home Phone [...] Author | [facility] | | | and Jose Enriqueana | + + + | Organization | [facility] | | | and Jose Enriqueana | + + + | Address | Unknown | + + + | Phone | Unavailable | + + + Support + + + + + | Name | Relationship | Address | Phone | + + + + + | Sharlene Lagunas | ECON | [address] | | | [place] | | [place], [place] | | | | | [address] | | + + + + + | Rickey Bui | ECON | [address] [place], [place] | | | | | [address] | | + + + + + Care Team Providers + +------+ + | Care Millroom Supervisor Name | Role | Phone | [...] [address] | | | | | [place] | [address] | | | | | [facility] [address] [place] [address] | [place] [address] | | | | | [address] | [phone] | | | | | [phone] | | | +--------+ + + + [...] 10/30/ | Office | Sleep Medicine | Rcikey Zaragoza PA | | | 2019 | Visit | | [address] | | | | | | [place] | | | | | | [address] | | | | | | | [...]
--- OUTSIDE RECORDS SUMMARY | ~2019-10-21 | XMS | Encounter Summary ---
Demographics + + + | Address | [address] | | | [place] [address] | + + + | Home Phone | | + + + | Preferred Language | Unknown | + + + | Marital Status | | + + + | Mosque Affiliation | 1009 | + + + | Race | Unknown | + + + | Ethnic Group | Unknown | + + + Author + + + | Author | [facility] | | | and Jose Enriqueana | + + + | Organization | [facility] | | | and Jose Enriqueana | + + + | Address | Unknown | + + + | Phone | Unavailable | + + + Support + + + + + | Name | Relationship | Address | Phone | + + + + + | Sharlene Lagunas | ECON | [address] | | | [place] | | [place], [place] | | | | | [address] | | + + + + + | Rickey Bui | ECON | [address] [place], [place] | | | | | [address] | | + + + + + Care Team Providers + +------+ + | Care Senior Sales Assistant Name | Role | Phone | [...] + + | 11/19/ | Office | [facility] | Rickey Zaragoza PA | ABAD on CPAP (Primary | | 2015 | Visit | SLEEP DISORDER [address] | [address] | Dx); Poor sleep | | | | [address] [place] | [place] | hygiene | | | | [place] [address] | [id number] | | | | | [phone] | | | +--------+---------+ + + + [...] 10:07 AM PDT Subjective: Patient ID: Prabhjot Bui is a 68 y.o. male. HPI last office visit was: 06/05/2014 date of polysomnography: 03/01/2004 AHI: 14.0 (35.3 during REM) O2%: 90% Machine type: ResMed S9 with full face mask obtained from: [facility] in [place] pressure is: 6-16 cm Median: 6.7 cm [...] appointment with ENT in the next m [facility]. 2. He is to do the following: [...] months, sooner prn. Thirty minutes were spent khff-zi-qvsf, wi th the majority of time spent [...] 2020 | Visit | | [address] | | | | | | [place] | | | | | | [phone] | | | | | | | [...]
--- OUTSIDE RECORDS SUMMARY | ~2019-10-21 | XMS | Encounter Summary ---
Demographics + + + | Address | [address] | | | [place] [address] | + + + | Home Phone [...] Author | [facility] | | | and Jose Enriqueana | + + + | Organization | [facility] | [...] SW | | | [address] | | [place], [place] | | | | | [address] | | + + + + + | Rickey Bui | ECON | [address] [place], [place] | | | | | [address] | | + + + + + Care Team Providers + +------+ + | Care Light Rail Vehicle Operator Name | Role | Phone [...] | | | | (aortic | [address] | [address] | | | | | valve | [address] | [address] | | | | | replacement) | [address] | [address] | | | | | Procedures | [place] | [place] | | | | | ECHO | [address] | [address] | | | | | Complete | Phone: | Phone: | | | | | | [phone] | [phone] | | | | | | Fax: | | | | | | | [phone] | | + +--------+ + + + + Encounter Details +--------+ + + + + | Date | Type | Department | Care Team | Description | +--------+ + + + + | 08/20/ | Orders Only | [facility] | Joel Moise | S/P AVR (aortic | | 2019 | | CARDIOLOGY [place] | MD [address] | valve replacement) | | | | [address], | [address] | (Primary Dx) | | | | [address] [address] [place] [address] | [place] [address] | | | | | [address] | [phone] | | | | | [phone] | | | +--------+ + + + [...] 2020 | Visit | | [address] | | | | | | [place] | | | | | | [address] | | | | | | | [...]
--- OUTSIDE RECORDS SUMMARY | ~2019-10-21 | XMS | Encounter Summary ---
Demographics + + + | Address | [address] | | | [place] [address] | + + + | Home Phone [...] + | Author | [facility] | | | and Jose Enriqueana | + + + | Organization | [facility] | [...] SW | | | [place] | | [address], [place] | | | | | [address] | | + + + + + | Rickey Bui | ECON | [address] [place], [place] | | | | | [address] | | + + + + + Care Team Providers + +------+ + | Care Timber Management Assistant Name | Role | Phone | + +------+ + | Tayo Robles DO | PCP | | + +------+ + Encounter Details +--------+ + + + + | Date | Type | Department | Care Team | Description | +--------+ + + + + | 01/17/ | Orders Only | [facility] | Joel Moise | | | 2010 | | [facility]ARD[facility]Y [facility] | MD [address] | | | | | [address] | [address] | | | | | [facility] [address] [place] [address] | [place] [address] | | | | | [address] | [phone] | | | | | [phone] | | | +--------+ + + + [...] SERVIN | | | | | | [address] | | | | | | | [...] | + + + + + | EJNNIE ANGELICAMURRAY | [address] | [place] [address] | | | [facility] | | | | | [...] + | JENNIE IGLESIAS | [address] | [place] [address] | | | [facility] | | | | | LABORATORY | | | | + + + + + | [facility] | | | | + + + + + documented in this encounter Visit Diagnoses Not on filedocumented in this encounter"
--- OUTSIDE RECORDS SUMMARY | ~2019-10-21 | XMS | Encounter Summary ---
Demographics + + + | Address | [address] | | | [place] [address] | + + + | Home Phone | | + + + | Preferred Language | Unknown | + + + | Marital Status | | + + + | Jehovah'S Witness Affiliation | 1009 | + + + | Race | Unknown | + + + | Ethnic Group | Unknown | + + + Author + + + | Author | [facility] | | | and Jose Enriqueana | + + + | Organization | [facility] | [...] [address] | | | [place] | | [place], [place] | | | | | [address] | | + + + + + | Rickey Bui | ECON | [address] [place], [place] | | | | | [address] | | + + + + + Care Team Providers + +------+ + | Care Logging Truck Driver Name | Role | Phone [...] + + | 08/14/ | Office | [facility] | Rickey Zaragoza PA | ABAD on CPAP (Primary | | 2017 | Visit | SLEEP DISORDER [address] | [address] | Dx) | | | | [address] [place] | [place] | | | | | [place] [address] | [address] | | | | | [phone] | | | +--------+---------+ + + + [...] 10 Mask type: full face mask DME: [place] in [place] pressure: 6-16 cm Median: 8.0 cm 95%: [...] was taking a redeye flight to the [facility]. His CP AP is now a regular [...] Exam Assessment: Problem #1: OBSTRUCTIVE SLEEP APNEA ([id number]) This is controlled with CPAP. His CPAP [...] appro priate paperwork. Fifteen minutes were spent espe-tc-lbaz, with the majority of time spent in counseling. Rickey Zaragoza PA-C Cc: Tayo Robles DO [place], [place], Medical As sistant - 08/14/2017 1:30 PM PDTFormatting of this note might be different from the origina l. 08/14/17 1300 Jules Depression Inventory-II Depression Score 9 - Minimal depression Insomnia Severity Index Insomnia Severity Index 9 [place] Sleepiness Scale Sitting and reading 2 Watching [...] SERV[place] | | | | | | [address] | | | | | | | | +--------+---------+ + + + documented as of this encounter Visit Diagnoses + + | Diagnosis | + + | ABAD on CPAP - Primary Obstructive sleep apnea (adult) (pediatric) | + + documented in this encounter"
--- OUTSIDE RECORDS SUMMARY | ~2019-10-21 | XMS | Encounter Summary ---
Demographics + + + | Address | [address] | | | [place] [address] | + + + | Home Phone [...] + | Author | [facility] | | | and Jose Enriqueana | + + + | Organization | [facility] | | [...] SW | | | [place] | | [address] [place] | | | | | [address] | | + + + + + | Rickey Bui | ECON | [address] [place], [place] | | | | | [address] | | + + + + + Care Team Providers + +------+ + | Care Waiter/Waitress Tourist Class Name | Role | Phone | + [...] [place] | | | | | | [address] | | | | | | [phone] | | | +--------+ + + + [...] SERV[place] | | | | | | [id number] | | | | | | | | +--------+---------+ + + + documented as of this encounter Visit Diagnoses Not on filedocumented in this encounter"
--- OUTSIDE RECORDS SUMMARY | ~2019-10-21 | XMS | Encounter Summary ---
Demographics + + + | Address | [address] | | | [place] [address] | + + + | Home Phone [...] + | Author | [facility] | | | and Jose Enriqueana | + + + | Organization | [facility] | [...] [address] | | | [place] | | [place], [place] | | | | | [address] | | + + + + + | Rickey Bui | ECON | [address] [place], [place] | | | | | [address] | | + + + + + Care Team Providers + +------+ + | Care Yard Associate Name | Role | Phone | [...] Refill | | 2013 | | CARDIOLOGY [facility] | MD Conchis [address] [place] [address] | | | | | [facility] [address] | [facility] [address] | | | | | [place] [address] [place] | [place] [address] | | | | | [address] | [phone] | | | | | [phone] | | | +--------+--------+ + + + [...]
--- OUTSIDE RECORDS SUMMARY | ~2019-10-21 | XMS | Encounter Summary ---
Demographics + + + | Address | [address] | | | [place] [address] | + + + | Home Phone [...] + | Author | [facility] | | | and Jose Enriqueana | + + + | Organization | [facility] | | | and Jose Enriqueana | + + + | Address | Unknown | + + + | Phone | Unavailable | + + + Support + + + + + | Name | Relationship | Address | Phone | + + + + + | Sharlene Lagunas | ECON | [address] | | | [place] | | [address], [place] | | | | | [address] | | + + + + + | Rickey Bui | ECON | [address] [place], [place] | | | | | [address] | | + + + + + Care Team Providers + +------+ + | Care Support Staff Name | Role | Phone | + [...] | | | | | (aortic | [place] [address] | [place], [place] | | | | | valve | [address] | [address] | | | | | replacement) | [address] | Phone: | | | | | Medication | [place] | [phone] | | | | | management | [address] | Fax: | | | | | Procedures | Phone: | [phone] | | | | | ECHO | [phone] | | | | | | Complete | Fax: | | | | | | | [phone] | | +--------+--------+ + + + + [...] | (aortic | [place] [address] | [place] | | | | | valve | [address] | [address] | | | | | replacement) | [address] | Phone: | | | | | Medication | [place] | [phone] | | | | | management | [address] | Fax: | | | | | Procedures | Phone: | [phone] | | | | | ECHO | [phone] | | | | | | Complete | Fax: | | | | | | | [phone] | | +--------+--------+ + + + + Encounter Details +--------+ + + + + | Date | Type | Department | Care Team | Description | +--------+ + + + + | 10/02/ | Hospital | [facility] | Joel Moise | S/P AVR (aortic | | 2019 | Encounter | MED [facility] ECHO [address] Yeny Balderrama MD | valve replacement); | | | | [place] | [address] | Medication | | | | [place] [address] | [place] [address] | management | | | | [phone] | [phone] | | | | | | | [...] | | | | | | | K-Nkfdyb-Ayzzrsjx | | | | | | | [...] | | | | | | ([facility]) | | | | | | + [...] | | | | | | ([facility]) | | | | | | + [...] SERVIN | | | | | | [address] | | | | | | | [...] | | | | | | n [place] | | | | | + +---------+ [...] Room Number JAZMIN Patient | | | [id number] Date of Study 10/02/2018 | | | Number Visit Number [id number] | | | Referring Physician Joel Moise MD Number | | | [facility] Date of | | | 1945 Author WILLEM BRAVO Age | | | 72 year(s) Interpreting SEVEN | | | MD MICHAEL | | | Traffic Rate Computer Gender Male 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 | | | Procedure Type of Study [...] Diastolic: 1.05 cm EF | | | Lgfhtljmj29% EF Calculated: 64% Right Ventrical TAPSE: 2.3 [...] Diastolic: 1.05 cm | | | EF Oydmejsdg80% | | | EF Calculated: 64% | [...] Report | | (TTE) Demographics [facility] Name [facility] Room Number JAZMIN | | Patient [id number] Date of Study 10/02/2018 Number Visit Number | | [id number] Referring Physician Joel Moise MD | | Number [facility] Date of 1945 | | Author WILLEM SHELLY Age 72 year(s) Interpreting | | SEVEN RODRIGUEZ MD Traffic Rate Computer Gender Male | | Nurse Stress TechnicianProcedureType [...] 1.09 cm PW Diastolic: 1.05 cm EF Ahopzbfoc37% EF Calculated: 64% Right | | Ventrical [...] PW Diastolic: 1.05 cm | | EF Bammdmuer39% | | EF Calculated: 64% | | [...]
--- OUTSIDE RECORDS SUMMARY | ~2019-10-21 | XMS | Encounter Summary ---
Demographics + + + | Address | [address] | | | [place] [address] | + + + | Home Phone [...] + | Author | [facility] | | | and Jose Enriqueana | + + + | Organization | [facility] | [...] [address] | | | [place] | | [place], [place] | | | | | [address] | | + + + + + | Rickey Bui | ECON | [address] [place], [place] | | | | | [address] | | + + + + + Care Team Providers + +------+ + | Care Cushion Maker Hand Name | Role | Phone | + [...] for | | 2013 | | CARDIOLOGY [facility] | MD Conchis [address] | long-term (current) | | | | [address] | [address] | use of other | | | | [address] | [place] [address] | medications (Primary | | | | [address] | [phone] | Dx) | | | | [phone] | | | +--------+ + + + [...] 2020 | Visit | | [address] | | | | | | [place] | | | | | | [address] | | | | | | | | +--------+---------+ + + + documented as of this encounter Results XR Chest PA and Lateral (12/10/2013 9:04 AM PDT) + + + | Impressions | Performed At | + + + | Results not interfaced with [employer]. Please see scanned report in | [place] [facility] | | Media tab. No Amiodarone effects noted per ANASTASIYA Wong , dany in | [place] - | | 6 months. See Phone note | [facility] | + + + + + + + + | Performing | Address | City/State/Zipcode | Phone Number | | Organization | | | | + + + + + | [place] | [facility] [address] | [place] [address] | [phone] | | - [facility] | [place] | | | + + + + + documented in this encounter Visit Diagnoses + + | Diagnosis | + + | Encounter for long-term (current) use of other medications - Primary | + + documented in this encounter"
--- OUTSIDE RECORDS SUMMARY | ~2019-10-21 | XMS | Encounter Summary ---
Demographics + + + | Address | [address] | | | [place] [address] | + + + | Home Phone [...] + | Author | [facility] | | | and Jose Enriqueana | + + + | Organization | [facility] | [...] [address] | | | [place] | | [place], [place] | | | | | [address] | | + + + + + | Rickey Bui | ECON | [address] [place], [place] | | | | | [address] | | + + + + + Care Team Providers + +------+ + | Care Examination Supervisor Name | Role | Phone | + +------+ + PCP | Unavailable | + +------+ + Encounter Details +--------+ + + + + | Date | Type | Department | Care Team | Description | +--------+ + + + + | 01/16/ | Hospital | [facility] | | | | 1996 | Encounter | MED CTR ICU [address] | | | | | | [place], | | | | | | [place] [address] | | | | | | [phone] | | | +--------+ + + + [...] SERV[place] | | | | | | [address] | | | | | | | | +--------+---------+ + + + documented as of this encounter Visit Diagnoses Not on filedocumented in this encounter"
--- OUTSIDE RECORDS SUMMARY | ~2019-10-21 | XMS | Encounter Summary ---
Demographics + + + | Address | [address] | | | [place] [address] | + + + | Home Phone [...] + | Author | [facility] | | | and Jose Enriqueana | + + + | Organization | [facility] | | | and Jose Enriqueana | + + + | Address | Unknown | + + + | Phone | Unavailable | + + + Support + + + + + | Name | Relationship | Address | Phone | + + + + + | Sharlene Lagunas | ECON | [address] | | | [place] | | [place], [place] | | | | | [address] | | + + + + + | Rickey Bui | ECON | [address] [place], [place] | | | | | [address] | | + + + + + Care Team Providers + +------+ + | Care Fern Cutter Name | Role | Phone | + +------+ + PCP | Unavailable | + +------+ + Encounter Details +--------+ + + + + | Date | Type | Department | Care Team | Description | +--------+ + + + + | 03/13/ | Hospital | [facility] | | | | 1996 - | Encounter | MED CTR ICU [address] | | | | | | [place], | | | | 03/14/ | | [place] [address] | | | | 1996 | | [phone] | | | +--------+ + + + [...] SERVIN | | | | | | [address] | | | | | | | | +--------+---------+ + + + documented as of this encounter Visit Diagnoses Not on filedocumented in this encounter"
--- OUTSIDE RECORDS SUMMARY | ~2019-10-21 | XMS | Encounter Summary ---
Demographics + + + | Address | [address] | | | [place] [address] | + + + | Home Phone [...] | Author | [facility] | | | and Jose Enriqueana | + + + | Organization | [facility] | | | and Jose Enriqueana | + + + | Address | Unknown | + + + | Phone | Unavailable | + + + Support + + + + + | Name | Relationship | Address | Phone | + + + + + | Sharlene Lagunas | ECON | [address] | | | [place] | | [address], [place] | | | | | [address] | | + + + + + | Rickey Bui | ECON | [address] [place], [place] | | | | | [address] | | + + + + + Care Team Providers + +------+ + | Care Clinical Support Nurse Name | Role | Phone | [...] Refill | | 2016 | | CARDIOLOGY [facility] | MD Conchis [address] [place] [address] | | | | | [facility] [address] | [facility] [address] | | | | | [place] [address] [place] | [place] [address] | | | | | [address] | [phone] | | | | | [phone] | | | +--------+--------+ + + + [...] 2019 | Visit | | [address] | | | | | | [place] | | | | | | [address] | | | | | | | | +--------+---------+ + + + documented as of this encounter Visit Diagnoses + + | Diagnosis | + + | Atrial fibrillation, unspecified - Primary | + + documented in this encounter"
--- OUTSIDE RECORDS SUMMARY | ~2019-10-21 | XMS | Encounter Summary ---
Demographics + + + | Address | [address] | | | [place] [address] | + + + | Home Phone [...] Author | [facility] | | | and Jose Enriqueana | + + + | Organization | [facility] | | | and Jose Enriqueana | + + + | Address | Unknown | + + + | Phone | Unavailable | + + + Support + + + + + | Name | Relationship | Address | Phone | + + + + + | Sharlene Lagunas | ECON | [address] | | | [place] | | [place], [place] | | | | | [address] | | + + + + + | Rickey Bui | ECON | [address] [place], [place] | | | | | [address] | | + + + + + Care Team Providers + +------+ + | Care Stevedore Dock Name | Role | Phone | + [...] + + | 12/27/ | Office | [facility] | Rickey Zaragoza PA | ABAD on CPAP (Primary | | 2012 | Visit | SLEEP DISORDER [address] | [address] | Dx) | | | | [address] | [place] | | | | | [place] [address] | [address] | | | | | [phone] | | | +--------+---------+ + + + [...] Insomnia Severity Index Insomnia Severity Index 17 Jackson Sleepiness Scale Sitting and reading 2 Watching [...] S9 with full face mask obtained from: [employer] in [place] pressure is: 6-16 cm 95%: 12.1 cm [...] appro piate paperwork. Fifteen minutes were spent [id number], with the majority of time spent in [...] SERV[place] | | | | | | [address] | | | | | | | | +--------+---------+ + + + documented as of this encounter Visit Diagnoses + + | Diagnosis | + + | ABAD on CPAP - Primary Obstructive sleep apnea (adult) (pediatric) | + + documented in this encounter"
--- OUTSIDE RECORDS SUMMARY | ~2019-10-21 | XMS | Encounter Summary ---
Demographics + + + | Address | [address] | | | [place] [address] | + + + | Home Phone [...] | Author | [facility] | | | and Jose Enriqueana | + + + | Organization | [facility] | | [...] [address] | | | [place] | | [address], [place] | | | | | [address] | | + + + + + | Rickey Bui | ECON | [address] [place], [place] | | | | | [address] | | + + + + + Care Team Providers + +------+ + | Care Professional Fighter Name | Role | Phone | + [...] MD Conchis [address] | dysfunction ([facility]) DO | | | | [address] | [address] | NOT DELETE. | | | | [address] | [place] [address] | (Primary Dx); | | | | [place], [place] | [phone] | Pacemaker - | | | | [address] | | Medtronic - [id number] | | | | [phone] | | Adapta - Implanted | | | | | | 02/27/2012 DO NOT | | | | | | RESOLVE; Atrial | | | | | | fibrillation, | | | | | | unspecified type | | | | | | ([facility]); 2. Bicuspid | | | | | [...] Pulmonary vein isolation carried out at the [facility] on 09/01/01. Aortic insufficiency and aortic stenosis [...] SARAVIA; Laterality: N/A; Surgeon: Ty Arzola; Location: [facility] ELECTROPHYSIOLOGY Hip joint replacement Left 05/17/15 [...] EKG 01/20/2016: Rhythm: V-paced. Rate: 75 bpm. [place]: -65 degrees. QRS: .128. QT: .386. QTC: [...] Medicine - Sports Medicine) KENNETH Givens (Physician Stove Mounter) Augusto Kunz MD as Physician (Cardiology) documented [...] | + + + | Martha Person, Shredding Machine Knife Changer 01/20/2016 13:32 See scanned | | | [...]
--- OUTSIDE RECORDS SUMMARY | ~2019-10-21 | XMS | Encounter Summary ---
Demographics + + + | Address | [address] | | | [place] [address] | + + + | Home Phone [...] | Author | [facility] | | | and Jose Enriqueana | + + + | Organization | [facility] | | | and Jose Enriqueana | + + + | Address | Unknown | + + + | Phone | Unavailable | + + + Support + + + + + | Name | Relationship | Address | Phone | + + + + + | Sharlene Lagunas | ECON | [address] | | | [place] | | [place], [place] | | | | | [address] | | + + + + + | Rickey Bui | ECON | [address] [place], [place] | | | | | [address] | | + + + + + Care Team Providers + +------+ + | Care Stove Refinisher Name | Role | Phone | + [...] Refill | | 2013 | | [facility]Y [facility] | MD Conchis [address] [place] [address] | | | | | [facility] [address] | [facility] [address] | | | | | [place] [address] [place] | [place] [address] | | | | | [address] | [phone] | | | | | [phone] | | | +--------+--------+ + + + [...] SERVIN | | | | | | [address] | | | | | | | | +--------+---------+ + + + documented as of this encounter Visit Diagnoses Not on filedocumented in this encounter"
--- OUTSIDE RECORDS SUMMARY | ~2019-10-21 | XMS | Encounter Summary ---
Demographics + + + | Address | [address] | | | [place] [address] | + + + | Home Phone [...] | [facility] | | | and Jose Enriqueana | + + + | Organization | [facility] [...] [address] | | | [place] | | [address], [place] | | | | | [address] | | + + + + + | Rickey Bui | ECON | [address] [place], [place] | | | | | [address] | | + + + + + Care Team Providers + +------+ + | Care Service Center Representative Name | Role | Phone | + [...] Refill | | 2018 | | CARDIOLOGY [facility] | MD Conchis [address] [place] [address] | | | | | [facility] [address] | [facility] [address] | | | | | [place] [address] [place] [address] | [place] [address] | | | | | [address] | [phone] | | | | | [phone] | | | +--------+--------+ + + + [...] SERVIN | | | | | | [address] | | | | | | | | +--------+---------+ + + + documented as of this encounter Visit Diagnoses + + | Diagnosis | + + | Atrial fibrillation, unspecified type (HCC) - Primary | + + documented in this encounter"
--- OUTSIDE RECORDS SUMMARY | ~2019-10-21 | XMS | Encounter Summary ---
Demographics + + + | Address | [address] | | | [place] [address] | + + + | Home Phone [...] Author | [facility] | | | and Jose Enriqueana | + + + | Organization | [facility] | | [...] [address] | | | [place] | | [place], [place] | | | | | [address] | | + + + + + | Rickey Bui | ECON | [address] [place], [place] | | | | | [address] | | + + + + + Care Team Providers + +------+ + | Care Anthropologist Name | Role | Phone | + [...] | | CARDIOLOGY [place] | MD Conchis [address] [place] [address] | | | | | [address] | [facility] [address] | | | | | [address] | [place] [address] | | | | | [place] | [phone] | | | | | [address] | | | | | | [phone] | | | +--------+--------+ + + + [...] SERVIN | | | | | | [id number] | | | | | | | | +--------+---------+ + + + documented as of this encounter Visit Diagnoses + + | Diagnosis | + + | Atrial fibrillation, unspecified type (HCC) | + + documented in this encounter"
--- OUTSIDE RECORDS SUMMARY | ~2019-10-21 | XMS | Encounter Summary ---
Demographics + + + | Address | [address] | | | [place] [address] | + + + | Home Phone [...] Author | [facility] | | | and Jose Enriqueana | + + + | Organization | [facility] | | | and Jose Enriqueana | + + + | Address | Unknown | + + + | Phone | Unavailable | + + + Support + + + + + | Name | Relationship | Address | Phone | + + + + + | Sharlene Lagunas | ECON | [address] | | | [place] | | [place], [place] | | | | | [address] | | + + + + + | Rickey Bui | ECON | [address] [place], [place] | | | | | [address] | | + + + + + [...] + + + + | 05/21/ | Orders Only | [place] | Joel Moise | Atrial fibrillation | | 2012 | | CARDIOLOGY [facility] | MD [address]chis [address] | ([facility]) (Primary Dx); | | | | [facility] [address] | [address] | Cardiac pacemaker in | | | | [place] [address] [place] | [place] [address] | situ | | | | [address] | [phone] | | | | | [phone] | | | +--------+ + + + [...] 2020 | Visit | | [address] | | | | | | [place] | | | | | | [address] | | | | | | | | +--------+---------+ + + + documented as of this encounter Procedures + +--------+ + + + | Procedure Name | Priori | Date/Time | Associated Diagnosis | Comments | | | ty | | | | + +--------+ + + + | DEVICE INTERROGATION | Routin | 03/29/2013 | Atrial | Results for this | | | e | 1:45 PM | fibrillation (HCC) | procedure are in the | | | | PST | Cardiac pacemaker in | results section. | | | | | situ | | + +--------+ + + + documented in this encounter Results Device Interrogation (03/29/2013 1:45 PM PST) + + + | Narrative | Performed At | + + + | Joel | | | MD Jose Maria 03/29/2013 13:45 PATIENT NAME: Prabhjot Bui | | | : 1945: AGE: 67 y.o. Remote Pacemaker | | | Evaluation Report March 28, 2013 Reason for evaluation: Requested to | | | evaluate presenting rhythmIndication for pacemaker: Atrial | | | fibrillation Remotely captured device data was reviewed for pacemaker | | | parameters, battery status, percentage of pacing and significant | | | arrhythmias. Heart rate histograms were evaluated for adequate heart | | | rate response and any alerts reviewed. Pacing lead impedances were | | | reviewed for any significant changes. Final pacing outputs and | | | programming parameters were reviewed. Settings:Mode: AAIR<=>DDDRAtrial | | | Output: 1.5 V@ 0.4 msVentricular Output: 2.0 V @ 0.4 ms | | | Data:Presenting rhythm is AP VS, 95 bpm with 380-400 ms AV delay (MVP | | | mode). AP 94%. PARK MANAGER 29%. Heart rate histograms appear appropriate. | | | Battery status: satisfactory. Voltage: 2.79 V. Estimated remaining | | | longevity: 11.5 years. Lead impedances appear within normal | | | limits.Events noted since 03/07/13: 715 MS, longest 9:48 | | | minutes, total 0.6%. On anticoagulation.Device function appears | | | appropriate.Office device check scheduled 04/10/13.Remote follow-up in | | | 3 months.The device is functioning normally. Joel Moise MD | | |Mode: AAIR<=>DDDR | | |Atrial Output: 1.5 V@ 0.4 ms | | |Ventricular Output: 2.0 V @ 0.4 ms | | | | | |Data: | | |Presenting rhythm is AP VS, 95 bpm with 380-400 ms AV delay (MVP | | |mode). AP 94%. PARK MANAGER 29%. Heart rate histograms appear | | |appropriate. | | |Battery status: satisfactory. Voltage: 2.79 V. Estimated | | |remaining longevity: 11.5 years. Lead impedances appear within | | |normal limits. | | |Events noted since 03/07/13: | | | 715 MS, longest 9:48 minutes, total 0.6%. On | | |anticoagulation. | | |Device function appears appropriate. | | |Office device check scheduled 04/10/13. | | |Remote follow-up in 3 months. | | |The device is functioning normally. | | | | | |Joel Moise MD | | | | | | | | + + + + + | Procedure Note | + + | Joel Moise MD - 03/28/2013 1:39 PM PST PATIENT NAME: Prabhjot Bui | | : 1945: AGE: 67 y.o.Remote Pacemaker Evaluation ReportNovember 7, | | 2012Reason for evaluation: Requested to evaluate presenting rhythmIndication for | | pacemaker: Atrial fibrillationRemotely captured device data was reviewed for pacemaker | | parameters, battery status, percentage of pacing and significant arrhythmias. Heart rate | | histograms were evaluated for adequate heart rate response and any alerts reviewed. | | Pacing lead impedances were reviewed for any significant changes. Final pacing outputs | | and programming parameters were reviewed.Settings:Mode: AAIR<=>DDDRAtrial Output: 1.5 V@ | | 0.4 msVentricular Output: 2.0 V @ 0.4 msData:Presenting rhythm is AP VS, 95 bpm with | | 380-400 ms AV delay (MVP mode). AP 94%. PARK MANAGER 29%. Heart rate histograms appear | | appropriate. Battery status: satisfactory. Voltage: 2.79 V. Estimated remaining | | longevity: 11.5 years. Lead impedances appear within normal limits.Events noted since | | 03/07/13: 715 MS, longest 9:48 minutes, total 0.6%. On anticoagulation.Device | | function appears appropriate.Office device check scheduled 04/10/13.Remote follow-up in | | 3 months.The device is functioning normally. Joel Moise MD | |Mode: AAIR<=>DDDR | |Atrial Output: 1.5 V@ 0.4 ms | |Ventricular Output: 2.0 V @ 0.4 ms | | | |Data: | |Presenting rhythm is AP VS, 95 bpm with 380-400 ms AV delay (MVP mode). AP 94%. PARK MANAGER 29%. Heart rate histograms appear appropriate. | |Battery status: satisfactory. Voltage: 2.79 V. Estimated remaining longevity: 11.5 years. Lead impedances appear within normal limits. | |Events noted since 03/07/13: | | 715 MS, longest 9:48 minutes, total 0.6%. On anticoagulation. | |Device function appears appropriate. | |Office device check scheduled 04/10/13. | |Remote follow-up in 3 months. | |The device is functioning normally. | | | |Joel Moise MD | + + documented in this encounter Visit Diagnoses + + | Diagnosis | + + | Atrial fibrillation (HCC) - Primary Atrial fibrillation | + + | Cardiac pacemaker in situ | + + documented in this encounter"
--- OUTSIDE RECORDS SUMMARY | ~2019-10-21 | XMS | Encounter Summary ---
Demographics + + + | Address | [address] | | | [place] [address] | + + + | Home Phone | | + + + | Preferred Language | Unknown | + + + | Marital Status | | + + + | Moravian Affiliation | 1009 | + + + | Race | Unknown | + + + | Ethnic Group | Unknown | + + + Author + + + | Author | [facility] | | | and Jose Enriqueana | + + + | Organization | [facility] | | [...] | | | [address] | | [address], [place] | | | | | [address] | | + + + + + | Rickey Bui | ECON | [address] [place], [place] | | | | | [address] | | + + + + + Care Team Providers + +------+ + | Care Shredding Specialist Name | Role | Phone | [...] + + | 02/18/ | Implant | [facility] [place] | Nicol Nettles | Sinoatrial node | | 2015 | Monitor | [facility] [place] | K, RN | dysfunction (HCC) | | | | [address] | | (Primary Dx); | | | | [address] [place] | | Cardiac pacemaker in | | | | [address] | | situ | | | | [phone] | | | +--------+ + + + [...] SERVIN | | | | | | [address] | | | | | | | | +--------+---------+ + + + documented as of this encounter Procedures + +--------+ + + + | Procedure Name | Priori | Date/Time | Associated Diagnosis | Comments | | | ty | | | | + +--------+ + + + | DEVICE INTERROGATION | Routin | 09/07/2015 | Sinoatrial node | Results for this | | | e | 2:33 PM | dysfunction (HCC) | procedure are in the | | | | PDT | Cardiac pacemaker in | results section. | | | | | situ | | + +--------+ + + + documented in this encounter Results Device Interrogation (09/07/2015 2:33 PM PDT) + + + | Narrative | Performed At | + + + | CASIMIRO, | | | NICOL Hau 09/07/2015 14:33 PATIENT NAME: Prabhjot Lee | | | [facility] 1945: AGE: 69 y.o. Remote | | | Pacemaker Evaluation Report January 08, 2015 Reason for evaluation: | | | [...] 2V @ 0.4ms Data Presenting rhythm is AP-VS. | | | When not in AT/AF: AP 42.9% and BRAND AMBASSADOR PROMOTIONAL MODEL 11.4%. Mostly BRAND AMBASSADOR PROMOTIONAL MODEL when in AT/AF. | | | Heart rate histograms appear appropriate. Battery status: | | | satisfactory. Voltage: 2.80V. Estimated remaining longevity: 10.5 | | | years. Lead impedances appear within normal limits.Events noted | | | since 10/14/14: 2,306 MS/ATR, longest >96 hours, 80.3%. On | | | anticoagulation. Was in 100%, AT/AF burden up till approximately first | | | week in December, then drops to 0% per cardiac compass. 6 VHR, longest | | | 15 seconds. Device function appears appropriate.Remote follow-up per | | | previous schedule.Dr. Joel Moise MD has supervised and | | | interpreted this remote. | | | | | |Mode: AAIR<=>DDDR 70-130(130) | | |Atrial Output: 1.5V @ 0.4ms | | |Ventricular Output: 2V @ 0.4ms | | | | | |Data | | | | | |Presenting rhythm is AP-VS. When not in AT/AF: AP 42.9% and BRAND AMBASSADOR PROMOTIONAL MODEL | | |11.4%. Mostly BRAND AMBASSADOR PROMOTIONAL MODEL when in AT/AF. Heart rate histograms appear | | |appropriate. Battery status: satisfactory. Voltage: 2.80V. | | |Estimated remaining longevity: 10.5 years. Lead impedances | | |appear within normal limits. | | |Events noted since 10/14/14: | | | 2,306 MS/ATR, longest >96 hours, 80.3%. On | | |anticoagulation. Was in 100%, AT/AF burden up till approximately | | |first week in December, then drops to 0% per cardiac compass. | | | 6 VHR, longest 15 seconds. | | |Device function appears appropriate. | [...]
--- OUTSIDE RECORDS SUMMARY | ~2019-10-21 | XMS | Encounter Summary ---
Demographics + + + | Address | [address] | | | [place] [address] | + + + | Home Phone [...] + | Author | [facility] | | | and Jose Enriqueana | + + + | Organization | [facility] | | [...] [address] | | | [place] | | [address], [place] | | | | | [address] | | + + + + + | Rickey Bui | ECON | [address] [place], [place] | | | | | [address] | | + + + + + Care Team Providers + +------+ + | Care Freight Unloader Name | Role | Phone | + [...] | | 2018 | Monitor | [facility]ARDI[facility] [place] | RN | dysfunction (HCC) | | | | [address] | | (Primary Dx); | | | | [address] [place] | | Cardiac pacemaker in | | | | [place] | | situ | | | | [address] | | | | | | [phone] | | | +--------+ + + + [...] SERVIN | | | | | | [address] | | | | | | | [...] atrial | | | fibrillation/flutter with irregular RECORD PRESS TENDER/VS. RECORD PRESS TENDER 54.2%. On | | | anticoagulation. Heart [...] is atrial fibrillation/flutter with irregular | | |RECORD PRESS TENDER/VS. RECORD PRESS TENDER 54.2%. On anticoagulation. Heart rate histograms | [...]
--- OUTSIDE RECORDS SUMMARY | ~2019-10-21 | XMS | Encounter Summary ---
Demographics + + + | Address | [address] | | | [place] [address] | + + + | Home Phone | | + + + | Preferred Language | Unknown | + + + | Marital Status | | + + + | Rastafarian Affiliation | 1009 | + + + | Race | Unknown | + + + | Ethnic Group | Unknown | + + + Author + + + | Author | [facility] | | | and Jose Enriqueana | + + + | Organization | [facility] | | | and Jose Enriqueana | + + + | Address | Unknown | + + + | Phone | Unavailable | + + + Support + + + + + | Name | Relationship | Address | Phone | + + + + + | Sharlene Lagunas | ECON | [address] | | | [place] | | [facility] [place] | | | | | [address] | | + + + + + | Rickey Bui | ECON | [address] [place], [place] | | | | | [address] | | + + + + + Care Team Providers + +------+ + | Care Magazine Editor Name | Role | Phone | + [...] Check | | 2015 | | [facility] | Early Intervention Specialist | (Remote) | | | | [address] | | | | | | [place] [address] [place] | | | | | | [address] | | | | | | [phone] | | | +--------+ + + + [...]
--- OUTSIDE RECORDS SUMMARY | ~2019-10-21 | XMS | Encounter Summary ---
Demographics + + + | Address | [address] | | | [place] [address] | + + + | Home Phone [...] + | Author | [facility] | | | and Jose Enriqueana | + + + | Organization | [facility] | [...] SW | | | [place] | | [address], [place] | | | | | [address] | | + + + + + | Rickey Bui | ECON | [address] [place], [place] | | | | | [address] | | + + + + + Care Team Providers + +------+ + | Care Manager Java Name | Role | Phone | + [...] | | [address] | [place] | | | | | [place] | [phone] | | | | | [address] | | | | | | [phone] | Anderson Flores, | | | | | | DO [address] | | | | | | [place], [place] | | | | | | [phone] | | | | | | | [...] +----+---+ + + | | 1 | [place] | | | | 4 | 43-degrees [...] +----+---+ + + | | 1 | [place] off | | | | 8 | [...] Placed By: | | | | | SHOE PLANNER; Removal Date: 04/30/14; | | | | [...] SERVIN | | | | | | [address] | | | | | | | [...]
--- OUTSIDE RECORDS SUMMARY | ~2019-10-21 | XMS | Encounter Summary ---
Demographics + + + | Address | [address] | | | [place] [address] | + + + | Home Phone | | + + + | Preferred Language | Unknown | + + + | Marital Status | | + + + | Orthodoxy Affiliation | 1009 | + + + | Race | Unknown | + + + | Ethnic Group | Unknown | + + + Author + + + | Author | [facility] | | | and Jose Enriqueana | + + + | Organization | [facility] | | [...] SW | | | [address] | | [address], [place] | | | | | [address] | | + + + + + | Rickey Bui | ECON | [address] [place], [place] | | | | | [address] | | + + + + + Care Team Providers + +------+ + | Care Faculty Physician Name | Role | Phone | + [...] | +--------+ + + + + | 08/11/ | Procedure | [facility]ENN[facility] | | Fitting and | | 2017 | visit | [facility] [place] | | adjustment of | | | | HI[address] | | cardiac pacemaker | | | | [address] [address] [place], [place] | | (Primary Dx); | | | | [address] | | Sinoatrial node | | | | [phone] | | dysfunction (HCC) | +--------+ + [...] | | | | | [place] | | | | | | [address] | | | | | | | | +--------+---------+ + + + documented as of this encounter Procedures + +--------+ + + + | Procedure Name | Priori | Date/Time | Associated Diagnosis | Comments | | | ty | | | | + +--------+ + + + | DEVICE INTERROGATION | Routin | 08/11/2017 | Fitting and | Results for this | | | e | 3:00 PM | adjustment of | procedure are in the | | | | PDT | cardiac pacemaker | results section. | | | | | Sinoatrial node | | | | | | dysfunction (HCC) | | + +--------+ + + + documented in this encounter Results Device Interrogation (08/11/2017 3:00 PM PDT) + + + | Narrative | Performed At | + + + | Alex Jensen, | [facility] | | Environmental Engineering Professor 08/11/2017 15:11 PATIENT NAME: Prabhjot Lee | | | Breejuvenal : 1945: AGE: 71 y.o. Pacemaker | | | Programming Report August 11, 2017 Reason for programming: | | | routineIndication for pacemaker: ICD-10-CM ICD-9-CM 1. Fitting | | | and adjustment of cardiac pacemaker Z45.018 V53.31 Device | | | Interrogation 2. Sinoatrial node dysfunction (HCC) I49.5 427.81 Device | | | Interrogation Patient [...] was seated and device was programmed. Pacemaker | | |parameters, battery status, percentages [...]
--- OUTSIDE RECORDS SUMMARY | ~2019-10-21 | XMS | Encounter Summary ---
Demographics + + + | Address | [address] | | | [place] [address] | + + + | Home Phone [...] + | Author | [facility] | | | and Jose Enriqueana | + + + | Organization | [facility] [...] SW | | | [place] | | [address], [place] | | | | | [address] | | + + + + + | Rickey Bui | ECON | [address] [place], [place] | | | | | [address] | | + + + + + Care Team Providers + +------+ + | Care Children'S Nursery Assistant Name | Role | Phone | + +------+ + | Tayo Robles DO | PCP | | + +------+ + Encounter Details +--------+ + + + + | Date | Type | Department | Care Team | Description | +--------+ + + + + | 01/17/ | Orders Only | JENNIE S[facility]DI[facility] | Joel Moise | | | 2010 | | [facility] | MD Conchis [address] | | | | | MA[address] | [address] | | | | | [facility] [address] [place] | [place] [address] | | | | | [address] | [phone] | | | | | [phone] | | | +--------+ + + + [...] SERVIN | | | | | | [address] | | | | | | | | +--------+---------+ + + + documented as of this encounter Procedures + +--------+ + + + | Procedure Name | Priori | Date/Time | Associated Diagnosis | Comments | | | ty | | | | + +--------+ + + + | BASIC METABOLIC | Routin | 01/17/2011 | | Results for this | | PANEL | e | 3:15 PM | | procedure are in the | | | | PDT | | results section. | + +--------+ + + + | BASIC METABOLIC | Routin | 01/17/2011 | | Results for this | | PANEL | e | 3:15 PM | | procedure are in the | | | | PDT | | results section. | + +--------+ + + + documented in this encounter Results Basic Metabolic Panel (01/17/2011 3:15 PM PDT) + + + + + + | Component | Value | Ref Range | Performed | Pathologist | | | | | At | Signature | + + + + + + | Na | 139 | 135 - 145 | [facility] | | | | | mmol/L | | | + + + + + + | K | 4.1 | 3.5 - 5.0 | [facility] | | | | | mmol/L | | | + + + + + + | Cl | 108 | 98 - 109 mmol/L | [facility] | | + + + + + + | CO2 | 25 | 21 - 28 mmol/L | [facility] | | + + + + + + | Glucose | 85Comment: Afghan | 65 - 99 mg/dL | [facility] | | | | Diabetes Association | | | | | | diagnostic categories | | | | | | for non adults: | | | | | | Impaired fasting | | | | | | glucose 100 to 125 | | | | | | mg/dL. A fasting [...] + + | BUN | 13 | 7 - 23 mg/dL | [facility] | | + + + + + + | Creatinine | 0.93Comment: IDMS | 0.50 - 1.30 | [facility] | | | | traceable creatinine | mg/dL | | | + + + + + + | Calcium | 9.0 | 8.5 - 10.5 | [facility] | | | | | mg/dL | | | + + + + + + | Anion Gap | 6 | 5 - 16 mmol/L | [facility] | | + + + + + + | Estimated | >60Comment: GFR <60: | >60 | [facility] | | | GFR | Chronic kidney disease, | ml/min/1.73m2 | | | | | if found over a 3 month | | | | | | period.GFR <15: Kidney | | | | | | failure.For | | | | | | Americans, multiply the | | | | | | calculated GFR by 1.210 | | | | + + + + + + + + | Specimen | + + | | + + + + + + + | Performing | Address | City/State/Zipcode | Phone Number | | Organization | | | | + + + + + | JENNIE IGLESIAS | [address] | [place] [address] | | | [facility] | | | | | LABORATORY | | | | + + + + + | [facility] | | | | + + + + + Basic Metabolic Panel (01/17/2011 3:15 PM PDT) + + + + + + | Component | Value | Ref Range | Performed | Pathologist | | | | | At | Signature | + + + + + + | Na | 139 | 135 - 145 | [facility] | | | | | mmol/L | | | + + + + + + | K | 4.1 | 3.5 - 5.0 | [facility] | | | | | mmol/L | | | + + + + + + | Cl | 108 | 98 - 109 mmol/L | [facility] | | + + + + + + | CO2 | 25 | 21 - 28 mmol/L | [facility] | | + + + + + + | Glucose | 85Comment: Afghan | 65 - 99 mg/dL | [facility] | | | | Diabetes Association | | | | | | diagnostic categories | | | | | | for non adults: | | | | | | Impaired fasting | | | | | | glucose 100 to 125 | | | | | | mg/dL. A fasting [...] + + | BUN | 13 | 7 - 23 mg/dL | [facility] | | + + + + + + | Creatinine | 0.93Comment: IDMS | 0.50 - 1.30 | [facility] | | | | traceable creatinine | mg/dL | | | + + + + + + | Calcium | 9.0 | 8.5 - 10.5 | [facility] | | | | | mg/dL | | | + + + + + + | Anion Gap | 6 | 5 - 16 mmol/L | [facility] | | + + + + + + | Estimated | >60Comment: GFR <60: | >60 | [facility] | | | GFR | Chronic kidney disease, | ml/min/1.73m2 | | | | | if found over a 3 month | | | | | | period.GFR <15: Kidney | | | | | | failure.For | | | | | | Americans, multiply the | | | | | | calculated GFR by 1.210 | | | | + + + + + + + + | Specimen | + + | | + + + + + + + | Performing | Address | City/State/Zipcode | Phone Number | | Organization | | | | + + + + + | JENNIE IGLESIAS | [address] | [place] [address] | | | [facility] | | | | | LABORATORY | | | | + + + + + | [facility] | | | | + + + + + documented in this encounter Visit Diagnoses Not on filedocumented in this encounter"
--- OUTSIDE RECORDS SUMMARY | ~2019-10-21 | XMS | Encounter Summary ---
Demographics + + + | Address | [address] | | | [place] [address] | + + + | Home Phone [...] | Author | [facility] | | | and Jose Enriqueana | + + + | Organization | [facility] | | [...] SW | | | [place] | | [address], [place] | | | | | [address] | | + + + + + | Rickey Bui | ECON | [address] [place], [place] | | | | | [address] | | + + + + + Care Team Providers + +------+ + | Care Hydraulic And Plumbing Installer Name | Role | Phone | [...] Medication Refill | | 2019 | | [facility] | MD Conchis [address] [place] [address] | | | | | [address] | [place] [address] | | | | | [address] | [place] [address] | | | | | [address] | [phone] | | | | | [phone] | | | +--------+--------+ + + + [...]
--- OUTSIDE RECORDS SUMMARY | ~2019-10-21 | XMS | Encounter Summary ---
Demographics + + + | Address | [address] | | | [place] [address] | + + + | Home Phone [...] | Author | [facility] | | | and Jose Enriqueana | + + + | Organization | [facility] | | | [...] SW | | | [place] | | [address], [place] | | | | | [address] | | + + + + + | Rickey Bui | ECON | [address] [place], [place] | | | | | [address] | | + + + + + Care Team Providers + +------+ + | Care Dry Transfer Worker Name | Role | Phone | [...] fibrillation | | 2012 | | [facility] | MD [address] | ([facility]) (Primary Dx); | | | | [facility] [address] | [address] | Cardiac pacemaker in | | | | [place] [address] [place] | [place] [address] | situ | | | | [address] | [phone] | | | | | [phone] | | | +--------+ + + + [...] 2020 | Visit | | [address] | | | | | | [place] | | | | | | [address] | | | | | | | [...] (MVP | | | mode). AP 94%. INSTRUMENTATION FITTER 29%. Heart rate histograms appear appropriate. | [...] delay (MVP | | |mode). AP 94%. INSTRUMENTATION FITTER 29%. Heart rate histograms appear | | [...] ms AV delay (MVP mode). AP 94%. INSTRUMENTATION FITTER 29%. Heart rate histograms appear | | [...] ms AV delay (MVP mode). AP 94%. INSTRUMENTATION FITTER 29%. Heart rate histograms appear appropriate. | [...]
--- OUTSIDE RECORDS SUMMARY | ~2019-10-21 | XMS | Encounter Summary ---
Demographics + + + | Address | [address] | | | [place] [address] | + + + | Home Phone [...] [facility] | | | and Jose Enriqueana | + + + | Organization | [facility] | | [...] SW | | | [place] | | [address], [place] | | | | | [address] | | + + + + + | Rickey Bui | ECON | [address] [place], [place] | | | | | [address] | | + + + + + Care Team Providers + +------+ + | Care Mental Health Counselor Name | Role | Phone | [...] Refill | | 2016 | | [facility] | MD Conchis [address] [place] [address] | | | | | [facility] [address] | [facility] [address] | | | | | [place] [address] [place] [address] | [place] [address] | | | | | [address] | [phone] | | | | | [phone] | | | +--------+--------+ + + + [...] 2019 | Visit | | [address] | | | | | | [place] | | | | | | [address] | | | | | | | | +--------+---------+ + + + documented as of this encounter Visit Diagnoses + + | Diagnosis | + + | Essential hypertension, hypertension with unspecified goal - Primary | + + documented in this encounter"
--- OUTSIDE RECORDS SUMMARY | ~2019-10-21 | XMS | Encounter Summary ---
Demographics + + + | Address | [address] | | | [place] [address] | + + + | Home Phone [...] [facility] | | | and Jose Enriqueana | + + + | Organization | [facility] | [...] SW | | | [place] | | [address], [place] | | | | | [address] | | + + + + + | Rickey Bui | ECON | [address] [place], [place] | | | | | [address] | | + + + + + Care Team Providers + +------+ + | Care Criminal Intelligence Specialist Name | Role | Phone | [...] Medication Refill | | 2018 | | [facility] | MD Conchis [address] [place] [address] | | | | | [facility] [address] | [facility] [address] | | | | | [place] [address] [place] | [place] [address] | | | | | [address] | [phone] | | | | | [phone] | | | +--------+--------+ + + + [...] SERV[place] | | | | | | [address] | | | | | | | | +--------+---------+ + + + documented as of this encounter Visit Diagnoses + + | Diagnosis | + + | Atrial fibrillation, unspecified type (HCC) - Primary | + + documented in this encounter"
--- OUTSIDE RECORDS SUMMARY | ~2019-10-21 | XMS | Encounter Summary ---
Demographics + + + | Address | [address] | | | [place] [address] | + + + | Home Phone [...] + | Author | [facility] | | | and Jose Enriqueana | + + + | Organization | [facility] | | [...] SW | | | [place] | | [address], [place] | | | | | [address] | | + + + + + | Rickey Bui | ECON | [address] [place], [place] | | | | | [address] | | + + + + + Care Team Providers + +------+ + | Care Shell Mold Bonder Name | Role | Phone | + [...] [facility] | MD Conchis [address] [place] [address] | | | | | [facility] [address] [facility] [address] | [facility] [address] | | | | | [place] [address] [address] | [place] [address] | | | | | [address] | [phone] | | | | | [phone] | | | +--------+--------+ + + + [...] SERVIN | | | | | | [address] | | | | | | | | +--------+---------+ + + + documented as of this encounter Visit Diagnoses Not on filedocumented in this encounter"
--- OUTSIDE RECORDS SUMMARY | ~2019-10-21 | XMS | Encounter Summary ---
Demographics + + + | Address | [address] | | | [place] [address] | + + + | Home Phone [...] | Author | [facility] | | | and Jose Enriqueana | + + + | Organization | [facility] | [...] SW | | | [place]ao | | [address], [place] | | | | | [address] | | + + + + + | Rickey Bui | ECON | [address] [place], [place] | | | | | [address] | | + + + + + Care Team Providers + +------+ + | Care Tucking Machine Operator Name | Role | Phone [...] Adapta - Implanted | | | | [address] [place] | | 02/27/2012 DO NOT | | | | [address] | | RESOLVE (Primary | | | | [phone] | | Dx); Atrial | | | [...] documented as of this encounter Progress Notes oJel Moise MD - 12/15/2013 1:21 PM PDTEP Pacer transmission from November 28, 2013 "Presenting rhythm is Afib with OUTSOLE FLEXER/VS, frequent blanked fib waves are noted (blanked flutte r search is ON). AP 60.8%. OUTSOLE FLEXER 35.7%. Heart rate histograms with increased binning [...] to contact the patient to come to [place] this week for car dioversion instead of [...] SERVIN | | | | | | [id number] | | | | | | | [...] PATIENT NAME: Prabhjot Lee | | | [facility] : 1945: AGE: 67 y.o. Remote [...] | | Presenting rhythm is Afib with OUTSOLE FLEXER/VS, frequent blanked fib waves are | | | noted (blanked flutter search is ON). AP 60.8%. OUTSOLE FLEXER 35.7%. Heart | | | rate histograms [...] per previous schedule.Report to Team Jose Maria.Dr. oJel Moise, | | | has supervised and interpreted this remote. | | | | | |Mode: AAIR+ 75-130 | | |Atrial Output: 1.5V @ 0.4ms | | |Ventricular Output: 2V @ 0.4ms | | | | | |Data | | | | | |Presenting rhythm is Afib with OUTSOLE FLEXER/VS, frequent blanked fib waves | | |are noted (blanked flutter search is ON). AP 60.8%. OUTSOLE FLEXER 35.7%. | | |Heart rate histograms with [...] 2V @ 0.4msDataPresenting rhythm is Afib with OUTSOLE FLEXER/VS, frequent | | blanked fib waves are noted (blanked flutter search is ON). AP 60.8%. OUTSOLE FLEXER 35.7%. Heart | | rate histograms with [...] | | |Presenting rhythm is Afib with OUTSOLE FLEXER/VS, frequent blanked fib waves are noted (blanked flutter search is ON). AP 60.8%. OUTSOLE FLEXER 35.7%. Heart rate histograms with increased binning [...]
--- OUTSIDE RECORDS SUMMARY | ~2019-10-21 | XMS | Encounter Summary ---
Demographics + + + | Address | [address] | | | [place] [address] | + + + | Home Phone [...] + + | Author | [facility] | | | and Jose Enriqueana | + + + | Organization | [facility] | | [...] SW | | | [place] | | [address], [place] | | | | | [address] | | + + + + + | Rickey Bui | ECON | [address] [place], [place] | | | | | [address] | | + + + + + Care Team Providers + +------+ + | Care Rn Pacu Name | Role | Phone | + [...] | (Primary Dx); | | | | [address] | | Cardiac pacemaker in | | | | [address] | | situ | | | | [phone] | | | +--------+ + + + [...] | | | | | [place] | | | | | | [address] | | | | | | | [...] Data Presenting rhythm is atrial flutter with VS/O AND M SUPERVISOR | | | ~83 bpm. O AND M SUPERVISOR 63.9%. Heart rate histogram appears appropriate. | [...] | |Presenting rhythm is atrial flutter with VS/O AND M SUPERVISOR ~83 bpm. O AND M SUPERVISOR | | |63.9%. Heart rate histogram appears [...]
--- OUTSIDE RECORDS SUMMARY | ~2019-10-21 | XMS | Encounter Summary ---
Demographics + + + | Address | [address] | | | [place] [address] | + + + | Home Phone [...] | Author | [facility] | | | and Jose Enriqueana | + + + | Organization | [facility] [...] SW | | | [place] | | [address], [place] | | | | | [address] | | + + + + + | Rickey Bui | ECON | [address] [place], [place] | | | | | [address] | | + + + + + Care Team Providers + +------+ + | Care Pedigree Researcher Name | Role | Phone | [...] appointment) | | | | [address] [place], [place] | [place] [address] | | | | | [address] | [phone] | | | | | [phone] | | | +--------+ + + + [...] SERVIN | | | | | | [id number] | | | | | | | | +--------+---------+ + + + documented as of this encounter Visit Diagnoses Not on filedocumented in this encounter"
--- OUTSIDE RECORDS SUMMARY | ~2019-10-21 | XMS | Encounter Summary ---
Demographics + + + | Address | [address] | | | [place] [address] | + + + | Home Phone | | + + + | Preferred Language | Unknown | + + + | Marital Status | | + + + | Presybeterian Affiliation | 1009 | + + + | Race | Unknown | + + + | Ethnic Group | Unknown | + + + Author + + + | Author | [facility] | | | and Jose Enriqueana | + + + | Organization | [facility] | [...] SW | | | [place] | | [address], [place] | | | | | [address] | | + + + + + | Rickey Bui | ECON | [address] [place], [place] | | | | | [address] | | + + + + + Care Team Providers + +------+ + | Care Accounts Receivable Administrator Name | Role | Phone | + +------+ + | Tayo Robles DO | PCP | | + +------+ + Encounter Details +--------+ + + + + | Date | Type | Department | Care Team | Description | +--------+ + + + + | 12/07/ | Orders Only | JENNIE S[facility]DI[facility] | Joel Moise | | | 2011 | | [facility] | MD Conchis [address] | | | | | [address] | [address] | | | | | [facility] [address] | [place] [address] | | | | | [address] | [phone] | | | | | [phone] | | | +--------+ + + + [...] SERVIN | | | | | | [address] | | | | | | | [...]
--- OUTSIDE RECORDS SUMMARY | ~2019-10-21 | XMS | Encounter Summary ---
Demographics + + + | Address | [address] | | | [place] [address] | + + + | Home Phone [...] Author | [facility] | | | and Jose Enriqueana | + + + | Organization | [facility] | | [...] SW | | | [place] | | [address], [place] | | | | | [address] | | + + + + + | Rickey Bui | ECON | [address] [place], [place] | | | | | [address] | | + + + + + Care Team Providers + +------+ + | Care Soil Biology Teacher Name | Role | Phone | [...] Cardiac pacemaker in | | | | [address] | | situ | | | | [phone] | | | +--------+ + + + [...] SERVIN | | | | | | [address] | | | | | | | [...] PATIENT NAME: Prabhjot Lee | | | [facility] 1945: AGE: 69 y.o. Remote | [...] Presenting rhythm is | | | A-fib/flutter- STAFF ANTISUBMARINE OFFICER rate ~77 bpm. When not in AT/AF: AP 53.4% and STAFF ANTISUBMARINE OFFICER | | | 5.9%. Mostly STAFF ANTISUBMARINE OFFICER when in AT/AF. Heart rate histograms appear [...] | | | |Presenting rhythm is A-fib/flutter- STAFF ANTISUBMARINE OFFICER rate ~77 bpm. When not in | | |AT/AF: AP 53.4% and STAFF ANTISUBMARINE OFFICER 5.9%. Mostly STAFF ANTISUBMARINE OFFICER when in AT/AF. Heart | | |rate [...]
--- OUTSIDE RECORDS SUMMARY | ~2019-10-21 | XMS | Encounter Summary ---
Demographics + + + | Address | [address] | | | [place] [address] | + + + | Home Phone [...] Author | [facility] | | | and Jose Enriqueana | + + + | Organization | [facility] | | | [...] SW | | | [place] | | [place], [place] | | | | | [address] | | + + + + + | Rickey Biu | ECON | [address] [place], [place] | | | | | [address] | | + + + + + Care Team Providers + +------+ + | Care Volunteer Manager Name | Role | Phone | [...] cardiac pacemaker | | | | YOJANA [address] [place] [address] | | (Primary Dx); SSS | | | | [address] | | (sick sinus | | | | [phone] | | syndrome) (HCC); | | | [...] 2020 | Visit | | [address] | | | | | | [place] | | | | | | [address] | | | | | | | [...] SSS (sick sinus syndrome) | | | ([facility]) (427.81) Device Interrogation 3. Chronotropic incompetence | [...]
--- OUTSIDE RECORDS SUMMARY | ~2019-10-21 | XMS | Encounter Summary ---
Demographics + + + | Address | [address] | | | [place] [address] | + + + | Home Phone [...] Author | [facility] | | | and Jose Enriqueana | + + + | Organization | [facility] | | | [...] SW | | | Hao | | [address] [place] | | | | | [address] | | + + + + + | Rickey Bui | ECON | [address] [place], [place] | | | | | [address] | | + + + + + Care Team Providers + +------+ + | Care Credit Verifier Name | Role | Phone | + [...] | +--------+ + + + + | 10/04/ | Telephone | JENNIE SIDDIQUI | Debbie Jung, | Device Check | | 2017 | | CARDIOLOGY [facility] | Quality Assurance Project Manager | (Remote) | | | | HI[address] | | | | | | [facility] [address] [place] | | | | | | [address] | | | | | | [phone] | | | +--------+ + + + [...]
--- OUTSIDE RECORDS SUMMARY | ~2019-10-21 | XMS | Encounter Summary ---
Demographics + + + | Address | [address] | | | [place] [address] | + + + | Home Phone [...] | Author | [facility] | | | and Jose Enriqueana | + + + | Organization | [facility] [...] SW | | | [place]ao | | [address], [place] | | | | | [address] | | + + + + + | Rickey Bui | ECON | [address] [place], [place] | | | | | [address] | | + + + + + Care Team Providers + +------+ + | Care Unix Consultant Name | Role | Phone | [...] Refill | | 2016 | | [facility]ARDIOLOGY [facility] | MD Conchis [address] [place] [address] | | | | | [facility] [address] | [facility] [address] | | | | | [place] [address] [place] | [place] [address] | | | | | [address] | [phone] | | | | | [phone] | | | +--------+--------+ + + + [...] 2019 | Visit | | [address] | | | | | | [place] | | | | | | [id number] | | | | | | | | +--------+---------+ + + + documented as of this encounter Visit Diagnoses + + | Diagnosis | + + | Essential hypertension, hypertension with unspecified goal - Primary | + + documented in this encounter"
--- OUTSIDE RECORDS SUMMARY | ~2019-10-21 | XMS | Encounter Summary ---
Demographics + + + | Address | [address] | | | [place] [address] | + + + | Home Phone [...] Author | [facility] | | | and Jose Enriqueana | + + + | Organization | [facility] | | | and Jose Enriqueana | + + + | Address | Unknown | + + + | Phone | Unavailable | + + + Support + + + + + | Name | Relationship | Address | Phone | + + + + + | Sharlene Lagunas | ECON | [address] | | | [place] | | [address], [place] | | | | | [address] | | + + + + + | Rickey Bui | ECON | [address] [place], [place] | | | | | [address] | | + + + + + Care Team Providers + +------+ + | Care Professional Caster Name | Role | Phone | + [...] Dx); | | | | [address]NA [address] [place], [place] | | Cardiac pacemaker in | | | | [address] | | situ | | | | [phone] | | | +--------+ + + + [...] SERV[place] | | | | | | [address] | | | | | | | [...] | rhythm is atrial fibrillation/flutter with regular ASSOCIATE SOFTWARE ENGINEER, ~78 bpm. ASSOCIATE SOFTWARE ENGINEER | | | 55.1%. Heart rate histogram [...] |Presenting rhythm is atrial fibrillation/flutter with regular ASSOCIATE SOFTWARE ENGINEER, | | |~78 bpm. ASSOCIATE SOFTWARE ENGINEER 55.1%. Heart rate histogram appears somewhat broad [...]
--- OUTSIDE RECORDS SUMMARY | ~2019-10-21 | XMS | Encounter Summary ---
Demographics + + + | Address | [address] | | | [place] [address] | + + + | Home Phone [...] Author | [facility] | | | and Jose Enriqueana | + + + | Organization | [facility] | | | and Jose Enriqueana | + + + | Address | Unknown | + + + | Phone | Unavailable | + + + Support + + + + + | Name | Relationship | Address | Phone | + + + + + | Sharlene Lagunas | ECON | [address] | | | [place] | | [place], [place] | | | | | [address] | | + + + + + | Rickey Bui | ECON | [address] [place], [place] | | | | | [address] | | + + + + + Care Team Providers + +------+ + | Care China Decorator Name | Role | Phone | + +------+ + PCP | Unavailable | + +------+ + Encounter Details +--------+ + + + + | Date | Type | Department | Care Team | Description | +--------+ + + + + | 02/12/ | Hospital | [facility] | | | | 1998 | Encounter | MED CTR GENERIC OP | | | | | | CONV DEPT [address] | | | | | | [place], | | | | | | [place] [address] | | | | | | [phone] | | | +--------+ + + + [...] SERVIN | | | | | | [address] | | | | | | | | +--------+---------+ + + + documented as of this encounter Visit Diagnoses Not on filedocumented in this encounter"
--- OUTSIDE RECORDS SUMMARY | ~2019-10-21 | XMS | Encounter Summary ---
Demographics + + + | Address | [address] | | | [place] [address] | + + + | Home Phone [...] Author | [facility] | | | and Jose Enriqueana | + + + | Organization | [facility] | | | and Jose Enriqueana | + + + | Address | Unknown | + + + | Phone | Unavailable | + + + Support + + + + + | Name | Relationship | Address | Phone | + + + + + | Sharlene Lagunas | ECON | [address] | | | [place] | | [address], [place] | | | | | [address] | | + + + + + | Rickey Bui | ECON | [address] [place], [place] | | | | | [address] | | + + + + + Care Team Providers + +------+ + | Care Marketing Sales Manager Name | Role | Phone | [...] + + | 06/09/ | Office | [facility] | Rickey Zaragoza PA | ABAD on CPAP (Primary | | 2016 | Visit | SLEEP DISORDER [address] | [address] | Dx) | | | | [address] [place] | [place] | | | | | [place] [address] | [address] | | | | | [phone] | | | +--------+---------+ + + + [...] full face mask obtained from: [facility] in [place] pressure is: 6-16 cm Median: 6.6 cm [...] Exam Assessment: Problem #1: OBSTRUCTIVE SLEEP APNEA (MGA46-E99.33) This is well controlled with CPAP. His [...] appro priate paperwork. Fifteen minutes were spent wtzc-uz-ukty, with the majority of time spent in counseling. Rickey Zaragoza PA-C Cc: Dr. Tayo Robles Maxine Moya, [facility] - 06/09/2015 10:14 AM PST 06/09/15 1000 Jules Depression Inventory-II Depression Score 10 - Minimal depression Insomnia Severity Index Insomnia Severity Index 13 [place] Sleepiness Scale Sitting and reading 2 Watching [...] SERVIN | | | | | | [id number] | | | | | | | | +--------+---------+ + + + documented as of this encounter Visit Diagnoses + + | Diagnosis | + + | ABAD on CPAP - Primary Obstructive sleep apnea (adult) (pediatric) | + + documented in this encounter"
--- OUTSIDE RECORDS SUMMARY | ~2019-10-21 | XMS | Encounter Summary ---
Demographics + + + | Address | [address] | | | [place] [address] | + + + | Home Phone [...] Author | [facility] | | | and Jose Enriqueana | + + + | Organization | [facility] | | [...] SW | | | [place] | | [address], [place] | | | | | [address] | | + + + + + | Rickey Bui | ECON | [address] [place], [place] | | | | | [address] | | + + + + + Care Team Providers + +------+ + | Care Rehabilitation Director Name | Role | Phone | [...] Edema, | Mary M, | [address] | | | | | unspecified | PA[address] | [place], | | | | | type | AVE | [place] | | | | | Fatigue, | [address] | [address] | | | | | unspecified | [place], [place] | Phone: | | | | | type S/P | [address] | [phone] | | | | | AVR | Phone: | Fax: | | | | | Procedures | [phone] | [phone] | | | | | ECHO | Fax: | | | | | | Complete | [phone] | | +--------+--------+ + + + + [...] Edema, | Mary M, | [address] | | | | | unspecified | [address] | [place], | | | | | type | [address] | [place] | | | | | Fatigue, | [address] | [address] | | | | | unspecified | [place], [place] | Phone: | | | | | type S/P | [address] | [phone] | | | | | AVR | Phone: | Fax: | | | | | Procedures | [phone] | [phone] | | | | | ECHO | Fax: | | | | | | Complete | [phone] | | +--------+--------+ + + + + Encounter Details +--------+ + + + + | Date | Type | Department | Care Team | Description | +--------+ + + + + | 04/23/ | Hospital | [facility] | Joel Moise | Edema, unspecified | | 2018 | Encounter | MED CTR ECHO [address] | MD [address] | type; Fatigue, | | | | [address] [place] | [address] | unspecified type; | | | | [place] [address] | [place] [address] | S/P AVR | | | | [phone] | [phone] | | | | | | | | | | | | Juhi Martinez, | | | | | | Geosciences Faculty Member | | +--------+ + + + + [...] | | | | | | | T-Iutxpp-Fbbotxdx | | | | | | | [...] 2019 | Visit | | [address] | | | | | | [place] | | | | | | [address] | | | | | | | [...] Room Number JAZMIN | | | Patient [id number] Date of Study | | | 09/11/2017 Number Visit Number [id number] Accession | | | [id number] Referring Physician KATRIN Crawford Number | | | 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 Yots-wt-cydajkdp tricuspid valve regurgitation.7. | | | Borderline [...] bioprosthetic aortic valve | | | replacement.Tricuspid JappmMmck-jf-dcnalkou tricuspid regurgitation | | | suggestive of [...] 0.9 cm PW Diastolic: 0.9 cm EF Xmdsgvbms58% Miscellaneous Aorta | | | Aortic Root: [...] replacement. 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 | | Ucxf-iw-idwcllos tricuspid valve regurgitation.7. Borderline pulmonary hypertension with [...] of bioprosthetic aortic valve | | replacement.Tricuspid PjlxiMvno-hi-hrfensqr tricuspid regurgitation suggestive of a | | [...] 0.9 cm PW Diastolic: 0.9 cm EF Apdizhlhn75% Miscellaneous Aorta Aortic Root: | | 3.3 [...] No significant aortic valve insufficiency. | |6. Oztk-ua-ksxasykj tricuspid valve regurgitation. | |7. Borderline pulmonary [...] aortic valve replacement. | |Tricuspid Valve | |Xiiq-qo-ynkikilj tricuspid regurgitation suggestive of a mildly elevated [...] PW Diastolic: 0.9 cm | | EF Evlghcsbz21% | | | | Miscellaneous | | [...]
--- OUTSIDE RECORDS SUMMARY | ~2019-10-21 | XMS | Encounter Summary ---
Demographics + + + | Address | [address] | | | [place] [address] | + + + | Home Phone [...] | [facility] | | | and Jose Enriqueana | + + + | Organization | [facility] | | | and [...] | | | Hao | | [address], [place] | | | | | [address] | | + + + + + | Rickey Bui | ECON | [address] [place], [place] | | | | | [address] | | + + + + + Care Team Providers + +------+ + | Care Plastics Fabricator Or Welder Name | Role | Phone | [...] Refill | | 2015 | | CARDIOLOGY [facility] | MD Conchis [address] [place] [address] | | | | | [facility] [address] | [facility] [address] | | | | | [place] [address] [place] | [place] [address] | | | | | [address] | [phone] | | | | | [phone] | | | +--------+--------+ + + + [...] 2020 | Visit | | [address] | | | | | | [...]
--- OUTSIDE RECORDS SUMMARY | ~2019-10-21 | XMS | Encounter Summary ---
Demographics + + + | Address | [address] | | | [place] [address] | + + + | Home Phone | | + + + | Preferred Language | Unknown | + + + | Marital Status | | + + + | Mormon Affiliation | 1009 | + + + | Race | Unknown | + + + | Ethnic Group | Unknown | + + + Author + + + | Author | [facility] | | | and Jose Enriqueana | + + + | Organization | [facility] [...] [address] | | | [place] | | [address], [place] | | | | | [address] | | + + + + + | Rickey Bui | ECON | [address] [place], [place] | | | | | [address] | | + + + + + Care Team Providers + +------+ + | Care Head Grinder Name | Role | Phone | + +------+ + | Tayo Robles DO | PCP | | + +------+ + Reason for Visit + + + | Reason | Comments | + + + | Device Check | Pre-appt remote | | (Remote) | | + + + Encounter Details +--------+ + + + + | Date | Type | Department | Care Team | Description | +--------+ + + + + | 02/06/ | Telephone | JENNIE SIDDIQUI | Delio, | Device Check | | 2018 | | CARDIOLOGY [facility] | Blaire, | (Remote) (Pre-appt | | | | HI4 [address] | Technologist | remote) | | | | [address] | | | | | | [address] | | | | | | [phone] | | | +--------+ + + + [...] SERVIN | | | | | | [address] | | | | | | | | +--------+---------+ + + + documented as of this encounter Visit Diagnoses Not on filedocumented in this encounter"
--- OUTSIDE RECORDS SUMMARY | ~2019-10-21 | XMS | Encounter Summary ---
Demographics + + + | Address | [address] | | | [place] [address] | + + + | Home Phone [...] | Author | [facility] | | | and Jose Enriqueana | + + + | Organization | [facility] | | | and Jose Enriqueana | + + + | Address | Unknown | + + + | Phone | Unavailable | + + + Support + + + + + | Name | Relationship | Address | Phone | + + + + + | Sharlene Lagunas | ECON | [address] | | | [place] | | [address], [place] | | | | | [address] | | + + + + + | Rickey Bui | ECON | [address] [place], [place] | | | | | [address] | | + + + + + Care Team Providers + +------+ + | Care Registered Clinical Dietitian Name | Role | Phone | + [...] (Appt | | 2019 | | CARDIOLOGY [facility] | MD [address] | needed) | | | | [facility] [address] | [address]VE [address] | | | | | [place] [address] [place] | [place] [address] | | | | | [address] | [phone] | | | | | [phone] | | | +--------+ + + + [...] SERVIN | | | | | | [address] | | | | | | | | +--------+---------+ + + + documented as of this encounter Visit Diagnoses Not on filedocumented in this encounter"
--- OUTSIDE RECORDS SUMMARY | ~2019-10-21 | XMS | Encounter Summary ---
Demographics + + + | Address | [address] | | | [place] [address] | + + + | Home Phone [...] Author | [facility] | | | and Jose Enriqueana | + + + | Organization | [facility] | [...] | | | Hao | | [address] [place] | | | | | [address] | | + + + + + | Rickey Bui | ECON | [address] [place], [place] | | | | | [address] | | + + + + + Care Team Providers + +------+ + | Care Principal Network Engineer Name | Role | Phone | [...] Check | | 2015 | | CARDIOLOGY [facility] | Machine Cell Tuber | (Remote) (Due | | | | HI[address] | | today.) | | | | [place] [address] [place] | | | | | | [address] | | | | | | [phone] | | | +--------+ + + + [...] SERVIN | | | | | | [address] | | | | | | | | +--------+---------+ + + + documented as of this encounter Visit Diagnoses Not on filedocumented in this encounter"
--- OUTSIDE RECORDS SUMMARY | ~2019-10-21 | XMS | Encounter Summary ---
Demographics + + + | Address | [address] | | | [place] [address] | + + + | Home Phone [...] | Author | [facility] | | | and Jose Enriqueana | + + + | Organization | [facility] | [...] [address] | | | [place] | | [address], [place] | | | | | [address] | | + + + + + | Rickey Bui | ECON | [address] [place], [place] | | | | | [address] | | + + + + + Care Team Providers + +------+ + | Care Faa Certified Powerplant Mechanic Name | Role | Phone | [...] Cardiology | Diagnoses | [facility] | | | | | 3/3rds Per | [place] | Cardiology | | | | | [...] | | | | device check | [address] | Phone: | | | | | | | [phone] | | | | | | | Fax: | | | | | | | [phone] | +--------+--------+ + + + + Encounter [...] Implanted | | | | [address] [place], [place] | | 02/27/2012 DO NOT | | | | [address] | | RESOLVE (Primary | | | | [phone] | | Dx); Sinoatrial node | | [...] 2020 | Visit | | [address] | | | | | | [place] | | | | | | [address] | | | | | | | [...] dysfunction | | | | | | ([facility]) DO NOT DELETE. | | + +--------+ + + + documented in this encounter Results Device Interrogation (01/10/2014 1:46 PM PDT) + + + | Narrative | Performed At | + + + | [facility] [employer] 01/10/2014 13:46 PATIENT NAME: Parbhjot | | | Jesus Bui : 1945: AGE: 68 y.o. | | | Pacemaker Evaluation Report November 13, 2013 Reason for | | | evaluation: routine Indication for pacemaker: ICD-9-CM 1. | | | Pacemaker - Medtronic - [id number] Adapta - Implanted 02/27/2012 DO NOT | | | RESOLVE V45.01 Device Interrogation 2. Sinoatrial node dysfunction | | | ([facility]) DO NOT DELETE. 427.81 Device Interrogation Patient [...]
--- OUTSIDE RECORDS SUMMARY | ~2019-10-21 | XMS | Encounter Summary ---
Demographics + + + | Address | [address] | | | [place] [address] | + + + | Home Phone [...] | [facility] | | | and Jose Enriqueana | + + + | Organization | [facility] | | | and Jose Enriqueana | + + + | Address | Unknown | + + + | Phone | Unavailable | + + + Support + + + + + | Name | Relationship | Address | Phone | + + + + + | Sharlene Lagunas | ECON | [address] | | | [place] | | [address], [place] | | | | | [address] | | + + + + + | Rickey Bui | ECON | [address] [place], [place] | | | | | [address] | | + + + + + Care Team Providers + +------+ + | Care Crossing Tender Name | Role | Phone | [...] Medication Refill | | 2019 | | [facility] | MD Conchis [address] [place] [address] | | | | | [address] | [place] [address] | | | | | [address] | [place] [address] | | | | | [address] | [phone] | | | | | [phone] | | | +--------+--------+ + + + [...]
--- OUTSIDE RECORDS SUMMARY | ~2019-10-21 | XMS | Encounter Summary ---
Demographics + + + | Address | [address] | | | [place] [address] | + + + | Home Phone | | + + + | Preferred Language | Unknown | + + + | Marital Status | | + + + | Rastafari Affiliation | 1009 | + + + | Race | Unknown | + + + | Ethnic Group | Unknown | + + + Author + + + | Author | [facility] | | | and Jose Enriqueana | + + + | Organization | [facility] | | | and Jose Enriqueana | + + + | Address | Unknown | + + + | Phone | Unavailable | + + + Support + + + + + | Name | Relationship | Address | Phone | + + + + + | Sharlene Lagunas | ECON | [address] | | | [place] | | [address], [place] | | | | | [address] | | + + + + + | Rickey Bui | ECON | [address] [place], [place] | | | | | [address] | | + + + + + Care Team Providers + +------+ + | Care Loan Manager Name | Role | Phone | [...] | | 2013 | Visit | CARDIOLOGY [facility] | [address] | ([facility]) (Primary Dx); | | | | [address] | [address] [place], | Atrial | | | | [place] [address] [place] | [place] [address] | fibrillation/atrial | | | | [address] | [phone] | flutter | | | | [phone] | | | +--------+---------+ + + + [...] Galvan MD - 02/11/2014 5:48 PM PDT [facility] [address] [place] [address] Patient Name: Prabhjot Bui Date: 1945 Date [...] both atrial flutter and atrial fibrillation in [facility]. I karan diagrams answered the patient's [...] the patient underwent an ablation procedure in [place] by Dr. Camilo. I do no t [...] three children. He is retired from the [email or web address]. He does not smoke or use smokeless [...] prevegan 10 mg 1 capsule daily Saw Alborn, Serenoa repens, (SAW PALMETTO PO) CAPS four [...] were not detected in the editing p Unidymess. Should you have any questions or concerns, [...] SERVIN | | | | | | [address] | | | | | | | [...] | Procedure Note | + + | [place] Ty Mally, CISCO CERTIFIED NETWORK PROFESSIONAL - 02/11/2014 2:14 PM PDT See scanned tracing for the | | provider's interpretation of EKG. | + + documented in this encounter Visit Diagnoses + + | Diagnosis | + + | Atrial fibrillation/atrial flutter - Primary Atrial fibrillation | + + documented in this encounter
--- OUTSIDE RECORDS SUMMARY | ~2019-10-21 | XMS | Encounter Summary ---
Demographics + + + | Address | [address] | | | [place] [address] | + + + | Home Phone [...] + | Author | [facility] | | | and Jose Enriqueana | + + + | Organization | [facility] | | | and Jose Enriqueana | + + + | Address | Unknown | + + + | Phone | Unavailable | + + + Support + + + + + | Name | Relationship | Address | Phone | + + + + + | Sharlene Lagunas | ECON | [address] | | | [place] | | [address], [place] | | | | | [address] | | + + + + + | Rickey Bui | ECON | [address] [place], [place] | | | | | [address] | | + + + + + Care Team Providers + +------+ + | Care Diazo Technician Name | Role | Phone | [...] + | 01/19/ | Procedure | [facility] | | Sinoatrial node | | 2015 | visit | [facility]ARDIOLOG[facility] [place] | | dysfunction (HCC) | | | | [address] | | (Primary Dx); | | | | YOJANA B3200 [facility] | | Cardiac pacemaker in | | | | [place] | | situ | | | | [address] | | | | | | [phone] | | | +--------+ + + + [...] SERVIN | | | | | | [id number] | | | | | | | [...]
--- OUTSIDE RECORDS SUMMARY | ~2019-10-21 | XMS | Encounter Summary ---
Demographics + + + | Address | [address] | | | [place] [address] | + + + | Home Phone [...] Author | [facility] | | | and Jose Enriqueana | + + + | Organization | [facility] | | [...] SW | | | [place] | | [address], [place] | | | | | [address] | | + + + + + | Rickey Bui | ECON | [address] [place], [place] | | | | | [address] | | + + + + + Care Team Providers + +------+ + | Care Credentialing Manager Name | Role | Phone | [...] Cardiac pacemaker in | | | | [address] | | situ | | | | [phone] | | | +--------+ + + + [...] SERVIN | | | | | | [address] | | | | | | | [...] | CASIMIRO, | | | NICOL Hua 09/07/2015 14:33 PATIENT NAME: Prabhjot Lee | | | [facility] 1945: AGE: 69 y.o. Remote [...] When not in AT/AF: AP 42.9% and SOLAR PHOTOVOLTAIC ELECTRICIAN 11.4%. Mostly SOLAR PHOTOVOLTAIC ELECTRICIAN when in AT/AF. | | | Heart [...] When not in AT/AF: AP 42.9% and SOLAR PHOTOVOLTAIC ELECTRICIAN | | |11.4%. Mostly SOLAR PHOTOVOLTAIC ELECTRICIAN when in AT/AF. Heart rate histograms appear [...]
--- OUTSIDE RECORDS SUMMARY | ~2019-10-21 | XMS | Encounter Summary ---
Demographics + + + | Address | [address] | | | [place] [address] | + + + | Home Phone [...] | Author | [facility] | | | and Jose Enriqueana | + + + | Organization | [facility] [...] SW | | | [address] | | [place], [place] | | | | | [address] | | + + + + + | Rickey Bui | ECON | [address] [place], [place] | | | | | [address] | | + + + + + Care Team Providers + +------+ + | Care Aids Nurse Name | Role | Phone | + +------+ + | Tayo Robles DO | PCP | | + +------+ + Encounter Details +--------+ + + + + | Date | Type | Department | Care Team | Description | +--------+ + + + + | 02/08/ | Orders Only | JENNIE SIDDIQUI | Joel Moise | | | 2011 | | CARDIOLOGY [facility] | MD [address] | | | | | [address] | [address] | | | | | [facility] [address] | [place] [address] | | | | | [address] | [phone] | | | | | [phone] | | | +--------+ + + + [...] SERVIN | | | | | | [address] | | | | | | | | +--------+---------+ + + + documented as of this encounter Procedures + +--------+ + + + | Procedure Name | Priori | Date/Time | Associated Diagnosis | Comments | | | ty | | | | + +--------+ + + + | HISTORICAL LAB PANEL | Routin | 01/24/2013 | | Results for this | | RESULT | e | | | procedure are in the | | | | | | results section. | + +--------+ + + + | HISTORICAL LAB PANEL | Routin | 02/09/2012 | | Results for this | | RESULT | e | | | procedure are in the | | | | | | results section. | + +--------+ + + + documented in this encounter Results HISTORICAL LAB PANEL RESULT (01/24/2013) + +-------+ + + + | Component | Value | Ref Range | Performed | Pathologist | | | | | At | Signature | + +-------+ + + + | INR | 2.4 | | EXTERNAL | | | | [...] +---------+ + + HISTORICAL LAB PANEL RESULT (02/09/2012) + +-------+ + + + | Component [...]
--- OUTSIDE RECORDS SUMMARY | ~2019-10-21 | XMS | Encounter Summary ---
Demographics + + + | Address | [address] | | | [place] [address] | + + + | Home Phone [...] | Author | [facility] | | | and Jose Enriqueana | + + + | Organization | [facility] | | | and Jose Enriqueana | + + + | Address | Unknown | + + + | Phone | Unavailable | + + + Support + + + + + | Name | Relationship | Address | Phone | + + + + + | Sharlene Lagunas | ECON | [address] | | | [address] | | [address], [place] | | | | | [address] | | + + + + + | Rickey Bui | ECON | [address] [place], [place] | | | | | [address] | | + + + + + Care Team Providers + +------+ + | Care Sales Support Representative Name | Role | Phone | + +------+ + PCP | Unavailable | + +------+ + Encounter Details +--------+ + + + + | Date | Type | Department | Care Team | Description | +--------+ + + + + | 03/01/ | Hospital | [facility] | Aditya Kenyon, | | | 2003 | Encounter | MED CTR SLEEP | [place] [address] | | | | | [place] [address] | [place], [place] | | | | | [place], [place] | [address] | | | | | [address] | | | | | | [phone] | | | +--------+ + + + [...] SERVIN | | | | | | [id number] | | | | | | | | +--------+---------+ + + + documented as of this encounter Visit Diagnoses Not on filedocumented in this encounter"
--- OUTSIDE RECORDS SUMMARY | ~2019-10-21 | XMS | Encounter Summary ---
Demographics + + + | Address | [address] | | | [place] [address] | + + + | Home Phone [...] Author | [facility] | | | and Jose Enriqueana | + + + | Organization | [facility] | | | and Jose Enriqueana | + + + | Address | Unknown | + + + | Phone | Unavailable | + + + Support + + + + + | Name | Relationship | Address | Phone | + + + + + | Sharlene Lagunas | ECON | [address] | | | [address] | | [address], [place] | | | | | [address] | | + + + + + | Rickey Bui | ECON | [address] [place], [place] | | | | | [address] | | + + + + + Care Team Providers + +------+ + | Care Substance Abuse Nurse Name | Role | Phone | [...] | (Primary Dx); | | | | [address] | | Cardiac pacemaker in | | | | [address] | | situ | | | | [phone] | | | +--------+ + + + [...] | | | | | [place] | | | | | | [address] | | | | | | | [...] Data Presenting rhythm is atrial flutter with HEALTH AND WELLNESS DIRECTOR ~88 bpm. | | | HEALTH AND WELLNESS DIRECTOR 70.2%. Mostly HEALTH AND WELLNESS DIRECTOR when in AT/AF. Heart rate histogram appears [...] | |Presenting rhythm is atrial flutter with HEALTH AND WELLNESS DIRECTOR ~88 bpm. HEALTH AND WELLNESS DIRECTOR 70.2%. | | |Mostly HEALTH AND WELLNESS DIRECTOR when in AT/AF. Heart rate histogram appears [...] physician for this remote, | | |Dr. oJel Moise MD | | | | | [...]
--- OUTSIDE RECORDS SUMMARY | ~2019-10-21 | XMS | Encounter Summary ---
Demographics + + + | Address | [address] | | | [place] [address] | + + + | Home Phone [...] + | Author | [facility] | | | and Jose Enriqueana | + + + | Organization | [facility] [...] SW | | | [address] | | [address], [place] | | | | | [address] | | + + + + + | Rickey Bui | ECON | [address] [place], [place] | | | | | [address] | | + + + + + Care Team Providers + +------+ + | Care Pharmacist Aide Name | Role | Phone | + +------+ + | Tayo Robles DO | PCP | | + +------+ + Encounter Details +--------+ + + + + | Date | Type | Department | Care Team | Description | +--------+ + + + + | 01/20/ | Documentati | JENNIE SIDDIQUI | Joel Moise | | | 2016 | on | CARDIOLOGY [place] | MD [address] | | | | | [address] | [address] | | | | | [address] | [place] [address] | | | | | [place] | [phone] | | | | | [address] | | | | | | [phone] | | | +--------+ + + + [...] encounter Progress Notes Joel Moise MD - 01/21/2016 9:51 PM PDT Note to the patient - will be sent to Dr. Robles Entered by Joel Moise MD at 01/21/2016 21:49 Prabhjot, The echo final report reflects what we said the other day. 1. The heart muscle is strong 2. There is mild leak of the mitral valve ( door between the top and bottom of the heart on the left side) 3. The replaced aortic valve is normal 4. The moderate leak of the tricuspid valve which is the door between the top and bottom of the heart on the right side - as I mentioned to you, I don't find that this is affecting yo ur heart based on examining you. 5. There is normal lung artery pressure - meaning there is no fluid backing up in the heart . Overall, this is very good news. Jole Moise MD documented in thi s encounter Plan of Treatment +--------+---------+ + + + | Date | Type | Specialty | Care Team | Description | +--------+---------+ + + + | 10/30/ | Office | Sleep Medicine | Rickey Zaragoza PA | | | 2019 | Visit | | [address] | | | | | | [facility] [place] | | | | | | [address] | | | | | | | | +--------+---------+ + + + documented as of this encounter Visit Diagnoses Not on filedocumented in this encounter"
--- OUTSIDE RECORDS SUMMARY | ~2019-10-21 | XMS | Encounter Summary ---
Demographics + + + | Address | [address] | | | [place] [address] | + + + | Home Phone [...] | Author | [facility] | | | and Jose Enriqueana | + + + | Organization | [facility] | [...] SW | | | [place] | | [address], [place] | | | | | [address] | | + + + + + | Rickey Bui | ECON | [address] [place], [place] | | | | | [address] | | + + + + + Care Team Providers + +------+ + | Care Juvenile Counselor Name | Role | Phone | [...] Closed | | Radiology | Diagnoses | [place], | [facility] | | | | | Edema, | Mary M, | [address] | | | | | unspecified | PA[address]C [address] | [place], | | | | | type | AVE | [place] | | | | | Fatigue, | [address] | [address] | | | | | unspecified | [place] | Phone: | | | | | type S/P | [address] | [phone] | | | | | AVR | Phone: | Fax: | | | | | Procedures | [phone] | [phone] | | | | | ECHO | Fax: | | | | | | Complete | [phone] | | +--------+--------+ + + + + [...] | | 2018 | Visit | CARDIOLOGY [facility] | PA-C [address] | type (Primary Dx); | | | | [address] | [address]VE [address] | Atrial fibrillation, | | | | [place] [address] [place] | [place] [address] | unspecified type | | | | [address] | [phone] | ([facility]); Fatigue, | | | | [phone] | | unspecified type; | | | | | | S/P AVR; Pacemaker - | | | | | | Medtronic - [id number] | | | | | | Adapta - Implanted | | | | | | 02/27/2012 DO NOT | | | | | | RESOLVE; Sinoatrial | | | | | | node dysfunction | | | | | | ([facility]) DO NOT | | | | | [...] mEq on Monday and Arrange echocardiogram in [place] Follow up with Dr. Kunz in 6 [...] THYROID) 60 MG tablet Patient Not Taking SENIOR MERCHANDISER THYROID 30 MG tablet Patient Not Taking [...] 1 capsule by mouth Daily. Also has G-Xhvlxc-Etq teine 250 mg & Pyrroloquinoline PQQ 10 [...] medication prevergan [DISCONTINUED] non-formulary medication prevergen [DISCONTINUED] SENIOR MERCHANDISER THYROID 30 MG tablet Take 1 tablet [...] on file as of 08/11/2017. Please note [facility] has a flaw in which medication [...] Pulmonary vein isolation carried out at the [facility] on 09/01/01. Phlebitis Phlebitis - right [...] N/A; Surgeon: Rickey Galvan MD ; Location: [facility] ELECTROPHYSIOLOGY AORTIC ROOT REPLACEMENT AND REIMPLANTATION [...] Medicine - Sports Medicine) KENNETH Givens (Physician Abattoir Supervisor) Augusto Kunz MD as Physician (Cardiology) Portions of this report were transcribed using voice recognition software. Every effort wa s made to ensure accuracy; however, inadvertent computerized coin teller errors may be pre sent. documented in this encounter Plan of Treatment +--------+---------+ + + + | Date | Type | Specialty | Care Team | Description | +--------+---------+ + + + | 10/30/ | Office | Sleep Medicine | Rickey Zaragoza PA | | | 2020 | Visit | | [address] [facility] | | | | | | [place] | | | | | | [id number] | | | | | | | [...] Room Number JAZMIN | | | Patient [id number] Date of Study | | | 09/11/2017 Number Visit Number [id number] Accession | | | [id number] Referring Physician DAYANA Crawford Number | | | Date of 1945 Smocker [address] | | | GISELL WAGNER Age 71 year(s) Interpreting | | | GODWIN WAGNER, | | | Spray Gunner Gender Male | | | 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 Kbjt-st-dbqdycyp tricuspid valve regurgitation.7. | | | Borderline [...] bioprosthetic aortic valve | | | replacement.Tricuspid CjbwfGjom-qe-qczwtcdt tricuspid regurgitation | | | suggestive of [...] 0.9 cm PW Diastolic: 0.9 cm EF Odgxmskqd64% Miscellaneous Aorta | | | Aortic Root: [...] replacement. | | |Tricuspid Valve | | |Hmwo-my-xhuqyeen tricuspid regurgitation suggestive of a mildly elevated [...] Diastolic: 0.9 cm | | | EF Rcunklecs25% | | | | | | Miscellaneous [...] LAZARO Room Number JAZMIN | | Patient [id number] Date of Study 09/11/2017 Number Visit Number | | [id number] Referring Physician DAYANA Crawford | | Number Date of 1945 Smocker GRAZYNA WAGNER TANYA Age | | 71 year(s) Interpreting GODWIN WAGNER, | | Spray Gunner Gender Male Nurse | | Stress TechnicianProcedureType [...] No significant aortic valve insufficiency.6. | | Zyzm-ex-hgmhwpjz tricuspid valve regurgitation.7. Borderline pulmonary hypertension with [...] of bioprosthetic aortic valve | | replacement.Tricuspid IvjpkAcrp-an-kuzzhfup tricuspid regurgitation suggestive of a | | [...] 0.9 cm PW Diastolic: 0.9 cm EF Rvaiygimt58% Miscellaneous Aorta Aortic Root: | | 3.3 [...] No significant aortic valve insufficiency. | |6. Sghb-ui-frzzlllf tricuspid valve regurgitation. | |7. Borderline pulmonary [...] aortic valve replacement. | |Tricuspid Valve | |Cyso-zj-ybboouvj tricuspid regurgitation suggestive of a mildly elevated [...] PW Diastolic: 0.9 cm | | EF Yakmsljcw99% | | | | Miscellaneous | | [...]
--- OUTSIDE RECORDS SUMMARY | ~2019-10-21 | XMS | Encounter Summary ---
Demographics + + + | Address | [address] | | | [place] [address] | + + + | Home Phone [...] + + | Author | [facility] | | | and Jose Enriqueana | + + + | Organization | [facility] | | [...] SW | | | [address] | | [address], [place] | | | | | [address] | | + + + + + | Rickey Bui | ECON | [address] [place], [place] | | | | | [address] | | + + + + + Care Team Providers + +------+ + | Care Laser Cutter Name | Role | Phone | [...] pacemaker | | | | [address] [place], [place] | | (Primary Dx); | | | | [address] | | Sinoatrial node | | | | [phone] | | dysfunction (HCC) | +--------+ + [...] 2019 | Visit | | [address] | | | | | | [place] | | | | | | [address] | | | | | | | [...] + | [place] Jensen, | | | rn womens health 06/03/2015 10:55 PATIENT NAME: Prabhjot Bui | [...]
--- OUTSIDE RECORDS SUMMARY | ~2019-10-21 | XMS | Encounter Summary ---
Demographics + + + | Address | [address] | | | [place] [address] | + + + | Home Phone [...] + | Author | [facility] | | | and Jose Enriqueana | + + + | Organization | [facility] | [...] SW | | | [address] | | [address], [place] | | | | | [address] | | + + + + + | Rickey Bui | ECON | [address] [place], [place] | | | | | [address] | | + + + + + Care Team Providers + +------+ + | Care Sea Foam Kiss Maker Name | Role | Phone | + [...] | (Primary Dx); | | | | [place] [address] [place] | | Cardiac pacemaker in | | | | [address] | | situ | | | | [phone] | | | +--------+ + + + [...] 06/11/ | Office | Sleep Medicine | [place], Rickey D, PA | | | 2019 | Visit | | [address] | | | | | | [place] | | | | | | [address] | | | | | | | [...] Presenting rhythm is AP VS. AP 96%. WHOLESALE ACCOUNT MANAGER 16%. Heart rate | | | histograms [...] |Presenting rhythm is AP VS. AP 96%. WHOLESALE ACCOUNT MANAGER 16%. Heart rate | | |histograms appear [...] 0.4msDataPresenting rhythm is AP VS. AP 96%. WHOLESALE ACCOUNT MANAGER 16%. Heart rate histograms | | appear [...] |Presenting rhythm is AP VS. AP 96%. WHOLESALE ACCOUNT MANAGER 16%. Heart rate histograms appear appropriate. | [...]
--- OUTSIDE RECORDS SUMMARY | ~2019-10-21 | XMS | Encounter Summary ---
Demographics + + + | Address | [address] | | | [place] [address] | + + + | Home Phone [...] Author | [facility] | | | and Jsoe Enriqueana | + + + | Organization | [facility] | | [...] [address] | | | [place] | | [address], [place] | | | | | [address] | | + + + + + | Rickey Bui | ECON | [address] [place], [place] | | | | | [address] | | + + + + + Care Team Providers + +------+ + | Care Roll Forming Machine Set Up Operator Name | Role | Phone | [...] | | 2018 | Monitor | [facility] [place] | RN | dysfunction (HCC) | | | | [address], | | (Primary Dx); | | | | [place] [address] [place] | | Cardiac pacemaker in | | | | [address] | | situ | | | | [phone] | | | +--------+ + + + [...] SERVIN | | | | | | [id number] | | | | | | | [...] atrial | | | fibrillation/flutter with regular ACTIVITY COORDINATOR, ~85 bpm. ACTIVITY COORDINATOR 54.3%. Heart | | | rate histogram [...] |Presenting rhythm is atrial fibrillation/flutter with regular ACTIVITY COORDINATOR, | | |~85 bpm. ACTIVITY COORDINATOR 54.3%. Heart rate histogram appears somewhat broad [...]
--- OUTSIDE RECORDS SUMMARY | ~2019-10-21 | XMS | Encounter Summary ---
Demographics + + + | Address | [address] | | | [place] [address] | + + + | Home Phone [...] | Author | [facility] | | | and Jose Enriqueana | + + + | Organization | [facility] | | [...] SW | | | [place] | | [address], [place] | | | | | [address] | | + + + + + | Rickey Bui | ECON | [address] [place], [place] | | | | | [address] | | + + + + + Care Team Providers + +------+ + | Care Windows 7 Deployment Lead Name | Role | Phone | [...] pacemaker | | | | [address] [place], [place] | | (Primary Dx); | | | | [address] | | Sinoatrial node | | | | [phone] | | dysfunction ([facility]); | | | | | | Cardiac [...] SERVIN | | | | | | [address] | | | | | | | [...] node dysfunction | | | ([facility]) 427.81 Device Interrogation 3. Cardiac pacemaker in [...]
--- OUTSIDE RECORDS SUMMARY | ~2019-10-21 | XMS | Encounter Summary ---
Demographics + + + | Address | [address] | | | [place] [address] | + + + | Home Phone [...] | Author | [facility] | | | and Jose Enriqueana | + + + | Organization | [facility] | [...] SW | | | [address] | | [address], [place] | | | | | [address] | | + + + + + | Rickey Bui | ECON | [address] [place], [place] | | | | | [address] | | + + + + + Care Team Providers + +------+ + | Care Manager Garage Name | Role | Phone | + [...] situ (Primary Dx); | | | | [address] | | Sinoatrial node | | | | [address] | | dysfunction (HCC) | | | | [place] | | | | | | [address] | | | | | | [phone] | | | +--------+ + + + [...] SERVIN | | | | | | [address] | | | | | | | [...] + | [place] Jensen, | | | gold leaf roller 10/14/2014 16:00 PATIENT NAME: Prabhjot Bui | [...]
--- OUTSIDE RECORDS SUMMARY | ~2019-10-21 | XMS | Encounter Summary ---
Demographics + + + | Address | [address] | | | [place] [address] | + + + | Home Phone [...] | [facility] | | | and Jose Enriqueana | + + + | Organization | [facility] [...] SW | | | [place] | | [place], [place] | | | | | [address] | | + + + + + | Rickey Bui | ECON | [address] [place], [place] | | | | | [address] | | + + + + + Care Team Providers + +------+ + | Care Second Chef Name | Role | Phone | + [...] | | 2018 | Visit | [facility] | MD [address] | dysfunction ([facility]) DO | | | | [facility] [address] | [address] | NOT DELETE. | | | | [address] [place] | [place] [address] | (Primary Dx); | | | | [address] | [phone] | Pacemaker - | | | | [phone] | | Medtronic - ADDRL1 | | | | | | Adapta - SN: | | | | | | [id number] Implanted | | | | | | 02/27/2012; Atrial | | | | | | fibrillation, | | | | | | unspecified type | | | | | | ([facility]); Aortic valve | | [...] moderate TR 29-34 mmHg 3. Echocardiogram 09/11/17 ([facility])- mild biatrial dilatation, EF 65-70%, mild [...] - Medtronic - ADDRL1 Adapta - SN: [id number] Implanted 02/27/2012 - Function is appropriate. Batter life of 8 years. 3. Atrial fibrillation, unspecified type (HCC) Patient is anticoagulated with Warfarin and rate control should be improved. 4. Aortic valve replaced- Functioning well per echo through [facility] 5 Tricuspid regurgitation- Mild to moderate per echo through [facility] Plan: 1. Increase Toprol Xl 50 mg [...] Pulmonary vein isolation carried out at the [facility] on 09/01/01. Phlebitis Phlebitis - right leg [...] N/A; Surgeon: Rickey Galvan MD ; Location: [facility] ELECTROPHYSIOLOGY AORTIC ROOT REPLACEMENT AND REIMPLANTATION [...] 1 capsule by mouth Daily. Also has U-Oottbf-Xvr teine 250 mg & Pyrroloquinoline PQQ 10 [...] Presenting rhythm is atrial fibrillation/flutter with irregular DIPPER CLOCK AND WATCH HANDS/VS. DIPPER CLOCK AND WATCH HANDS 54.2%. On antic oagulation. Heart rate histograms [...] Medicine - Sports Medicine) KENNETH Givens (Physician Procedure Tech) Augusto Kunz MD as Physician (Cardiology) documented in this encounter Plan of Treatment +--------+---------+ + + + | Date | Type | Specialty | Care Team | Description | +--------+---------+ + + + | 10/30/ | Office | Sleep Medicine | Rickey Zaragoza PA | | | 2019 | Visit | | [address] [facility] | | | | | | [place] | | | | | | [address] | | | | | | | | +--------+---------+ + + + documented as of this encounter Visit Diagnoses + + | Diagnosis | + + | Sinoatrial node dysfunction (HCC) DO NOT DELETE. - Primary Sinoatrial node | | dysfunction | + + | Pacemaker - Medtronic - ADDRL1 Adapta - SN: [id number] Implanted 02/27/2012 Cardiac | | pacemaker in situ | + + | Atrial fibrillation, unspecified type (HCC) | + + | Aortic valve replaced Heart valve replaced by other means | + + documented in this encounter
--- OUTSIDE RECORDS SUMMARY | ~2019-10-21 | XMS | Encounter Summary ---
Demographics + + + | Address | [address] | | | [place] [address] | + + + | Home Phone [...] | Author | [facility] | | | and Jose Enriqueana | + + + | Organization | [facility] [...] [address] | | | [place] | | [address], [place] | | | | | [address] | | + + + + + | Rickey Bui | ECON | [address] [place], [place] | | | | | [address] | | + + + + + Care Team Providers + +------+ + | Care Magazine Publisher Name | Role | Phone | + [...] Refill | | 2015 | | CARDIOLOGY [facility] | MD Conch[address] [place] [address] | | | | | [facility] [address] | [facility] [address] | | | | | [place] [address] [place] [address] | [place] [address] | | | | | [address] | [phone] | | | | | [phone] | | | +--------+--------+ + + + [...]
--- OUTSIDE RECORDS SUMMARY | ~2019-10-21 | XMS | Encounter Summary ---
Demographics + + + | Address | [address] | | | [place] [address] | + + + | Home Phone [...] | Author | [facility] | | | and Jose Enriqueana | + + + | Organization | [facility] | | | and Jose Enriqueana | + + + | Address | Unknown | + + + | Phone | Unavailable | + + + Support + + + + + | Name | Relationship | Address | Phone | + + + + + | Sharlene Lagunas | ECON | [address] | | | [place] | | [address], [place] | | | | | [address] | | + + + + + | Rickey Bui | ECON | [address] [place], [place] | | | | | [address] | | + + + + + Care Team Providers + +------+ + | Care Blowing Weasand Name | Role | Phone | + [...] | Conversion Location | MD [address] | | | | | [address] | [address] | | | | | [place], [place] | [place] [address] | | | | | [address] | [phone] | | | | | [phone] | | | +--------+ + + + [...] SERVIN | | | | | | [id number] | | | | | | | | +--------+---------+ + + + documented as of this encounter Visit Diagnoses Not on filedocumented in this encounter"
--- OUTSIDE RECORDS SUMMARY | ~2019-10-21 | XMS | Encounter Summary ---
Demographics + + + | Address | [address] | | | [place] [address] | + + + | Home Phone [...] | Author | [facility] | | | and Jose Enriqueana | + + + | Organization | [facility] | | | and Jose Enriqueana | + + + | Address | Unknown | + + + | Phone | Unavailable | + + + Support + + + + + | Name | Relationship | Address | Phone | + + + + + | Sharlene Lagunas | ECON | [address] | | | [address] | | [address], [place] | | | | | [address] | | + + + + + | Rickey uBi | ECON | [address] [place], [place] | | | | | [address] | | + + + + + Care Team Providers + +------+ + | Care Customer Energy Specialist Name | Role | Phone | + +------+ + PCP | Unavailable | + +------+ + Encounter Details +--------+ + + + + | Date | Type | Department | Care Team | Description | +--------+ + + + + | 04/22/ | Hospital | [facility] | | | | 1999 | Encounter | MED CTR XRAY [address] | | | | | | [place] | | | | | | [place] [address] | | | | | | [phone] | | | +--------+ + + + [...] SERVIN | | | | | | [address] | | | | | | | | +--------+---------+ + + + documented as of this encounter Visit Diagnoses Not on filedocumented in this encounter"
--- OUTSIDE RECORDS SUMMARY | ~2019-10-21 | XMS | Encounter Summary ---
Demographics + + + | Address | [address] | | | [place] [address] | + + + | Home Phone | | + + + | Preferred Language | Unknown | + + + | Marital Status | | + + + | Presybeterian Affiliation | 1009 | + + + | Race | Unknown | + + + | Ethnic Group | Unknown | + + + Author + + + | Author | and [facility] | | | and Jose Enriqueana | + + + | Organization | and [facility] [...] [address] | | | [place] | | [place], [place] | | | | | [address] | | + + + + + | Rickey Bui | ECON | [address] [place], [place] | | | | | [address] | | + + + + + Care Team Providers + +------+ + | Care Communications Instructor Name | Role | Phone | [...] 08/19/ | Implant | [facility]DI[facility] | Alex Jensen, | Sinoatrial node | | 2017 | Monitor | CARDIOLOGY [facility]ONIA | Damage Assessor | dysfunction (HCC) | | | | [address] | | (Primary Dx); | | | | Y[address] | | Cardiac pacemaker in | | | | [place] | | situ | | | | [address] | | | | | | [phone] | | | +--------+ + + + [...] SERVIN | | | | | | [address] | | | | | | | | +--------+---------+ + + + documented as of this encounter Procedures + +--------+ + + + | Procedure Name | Priori | Date/Time | Associated Diagnosis | Comments | | | ty | | | | + +--------+ + + + | DEVICE | Routin | 08/19/2016 | Sinoatrial node | Results for this | | INTERROGATION- | e | 10:59 PM | dysfunction (HCC) | procedure are in the | | REMOTE | | PDT | Cardiac pacemaker in | results section. | | | | | situ | | + +--------+ + + + documented in this encounter Results Device Interrogation - Remote (08/19/2016 10:59 PM PDT) + + + | Narrative | Performed At | + + + | Alex Jensen, | [facility] | | silverware buffer 08/19/2016 22:59 PATIENT NAME: Prabhjot Bui | | | : 1945: AGE: 70 y.o. Remote Pacemaker | | | Evaluation Report July 06, 2016 Reason for evaluation: | | [...] | | were reviewed. Settings Mode: VVIR 70-(130)Ventricular Output: 2V @ | | | 0.4ms Data Presenting rhythm is HEEL PAINTER/VS a.flutter ~ . HEEL PAINTER 45.0%. | | | Patient is on anticoagulant. Heart rate histograms appear | | | appropriate. Battery status: satisfactory. Voltage: 2.79 V. Estimated | | | remaining longevity: 10.5 years. Lead impedance appears within | | | normal limits.Events noted: 1 VHR 10 sec 05/22/16 with irregular marker | | | EGM (RVR) Device function appears appropriate.Remote follow-up in 3 | | | months. Supervising and interpreting physician for this remote,Joel | | | Conchis Moise MD | | |heart rate response and any alerts reviewed. Pacing lead | | |impedances were reviewed for any significant changes. Final | | |pacing outputs and programming parameters were reviewed. | | | | | |Settings | | | | | |Mode: VVIR 70-(130) | | |Ventricular Output: 2V @ 0.4ms | | | | | |Data | | | | | |Presenting rhythm is HEEL PAINTER/VS a.flutter ~ . HEEL PAINTER 45.0%. Patient is | | |on anticoagulant. Heart rate histograms appear appropriate. | | |Battery status: satisfactory. Voltage: 2.79 V. Estimated | | |remaining longevity: 10.5 years. Lead impedance appears within | | |normal limits. | | |Events noted: | | | 1 VHR 10 sec 05/22/16 with irregular marker EGM (RVR) | | |Device function appears appropriate. | [...]
--- OUTSIDE RECORDS SUMMARY | ~2019-10-21 | XMS | Encounter Summary ---
Demographics + + + | Address | [address] | | | [place] [address] | + + + | Home Phone [...] Author | [facility] | | | and Jose Enriqueana | + + + | Organization | [facility] [...] [address] | | | [place] | | [place], [place] | | | | | [address] | | + + + + + | Rickey Bui | ECON | [address] [place], [place] | | | | | [address] | | + + + + + Care Team Providers + +------+ + | Care Towing Pilot Name | Role | Phone | + +------+ + PCP | Unavailable | + +------+ + Encounter Details +--------+ + + + + | Date | Type | Department | Care Team | Description | +--------+ + + + + | 01/01/ | Hospital | [facility] | | | | 1996 | Encounter | MED CTR LABORATORY | | | | | | [address] | | | | | | [place], [place] | | | | | | [address] | | | | | | [phone] | | | +--------+ + + + [...] SERVIN | | | | | | [address] | | | | | | | | +--------+---------+ + + + documented as of this encounter Visit Diagnoses Not on filedocumented in this encounter"
--- OUTSIDE RECORDS SUMMARY | ~2019-10-21 | XMS | Encounter Summary ---
Demographics + + + | Address | [address] | | | [place] [address] | + + + | Home Phone [...] | Author | [facility] | | | and Jose Enriqueana | + + + | Organization | [facility] | | | and Jose Erniqueana | + + + | Address | Unknown | + + + | Phone | Unavailable | + + + Support + + + + + | Name | Relationship | Address | Phone | + + + + + | Sharlene Lagunas | ECON | [address] | | | [place] | | [place], [place] | | | | | [address] | | + + + + + | Rickey Bui | ECON | [address] [place], [place] | | | | | [address] | | + + + + + Care Team Providers + +------+ + | Care Advanced Solutions Architect Name | Role | Phone | [...] | | | | [address] | | ([facility]) | | | | [address] | | | | | | [phone] | | | +--------+ + + + [...] | | | | | | [place], [place] | | | | | | [address] | | | | | | | [...] | | Presenting rhythm is atrial flutter, MASTER STEAM YACHT/VS. Frequent blanked flutter | | | waves are noted (blanked flutter search is ON). AP 15.6%. MASTER STEAM YACHT | | | 70.6%. Heart rate histograms [...] | | |Presenting rhythm is atrial flutter, MASTER STEAM YACHT/VS. Frequent blanked | | |flutter waves are noted (blanked flutter search is ON). AP | | |15.6%. MASTER STEAM YACHT 70.6%. Heart rate histograms show increased binning [...] 0.4msDataPresenting rhythm is | | atrial flutter, MASTER STEAM YACHT/VS. Frequent blanked flutter waves are noted (blanked flutter search | | is ON). AP 15.6%. MASTER STEAM YACHT 70.6%. Heart rate histograms show increased binning [...] | | |Presenting rhythm is atrial flutter, MASTER STEAM YACHT/VS. Frequent blanked flutter waves are noted (ml law flutter search is ON). AP 15.6%. MASTER STEAM YACHT 70.6%. Heart rate histograms show increased binni [...]
--- OUTSIDE RECORDS SUMMARY | ~2019-10-21 | XMS | Encounter Summary ---
Demographics + + + | Address | [address] | | | [place] [address] | + + + | Home Phone [...] | Author | [facility] | | | and Jose Enriqueana | + + + | Organization | [facility] | | | [...] [address] | | | [place] | | [address], [place] | | | | | [address] | | + + + + + | Rickey Bui | ECON | [address] [place], [place] | | | | | [address] | | + + + + + Care Team Providers + +------+ + | Care Software Quality Test Engineer Name | Role | Phone | + +------+ + | Tayo Robles DO | PCP | | + +------+ + Encounter Details +--------+ + + + + | Date | Type | Department | Care Team | Description | +--------+ + + + + | 02/08/ | Orders Only | [facility] | Joel Moise | | | 2011 | | CARDIOLOGY [facility] | MD [address] | | | | | [address] | [address] | | | | | [facility] [address] | [place] [address] | | | | | [address] | [phone] | | | | | [phone] | | | +--------+ + + + [...] SERVIN | | | | | | [address] | | | | | | | [...]
--- OUTSIDE RECORDS SUMMARY | ~2019-10-21 | XMS | Encounter Summary ---
Demographics + + + | Address | [address] | | | [place] [address] | + + + | Home Phone [...] | Author | [facility] | | | and Jose Enriqueana | + + + | Organization | [facility] | [...] [address] | | | [address] | | [address], [place] | | | | | [address] | | + + + + + | Rickey Bui | ECON | [address] [place], [place] | | | | | [address] | | + + + + + Care Team Providers + +------+ + | Care Recreational Therapist Name | Role | Phone | + +------+ + PCP | Unavailable | + +------+ + Encounter Details +--------+ + + + + | Date | Type | Department | Care Team | Description | +--------+ + + + + | 03/18/ | Hospital | [facility] | | | | 1998 | Encounter | MED CTR XRAY [address] | | | | | | [place] | | | | | | [place] [address] | | | | | | [phone] | | | +--------+ + + + [...] SERVIN | | | | | | [address] | | | | | | | | +--------+---------+ + + + documented as of this encounter Visit Diagnoses Not on filedocumented in this encounter"
--- OUTSIDE RECORDS SUMMARY | ~2019-10-21 | XMS | Encounter Summary ---
Demographics + + + | Address | [address] | | | [place] [address] | + + + | Home Phone [...] Author | [facility] | | | and Jose Enriqueana | + + + | Organization | [facility] | [...] [address] | | | [address] | | [place], [place] | | | | | [address] | | + + + + + | Rickey Bui | ECON | [address] [place], [place] | | | | | [address] | | + + + + + Care Team Providers + +------+ + | Care Hide Worker Name | Role | Phone | [...] Dx); | | | | [address] [place], [place] | | Cardiac pacemaker in | | | | [address] | | situ | | | | [phone] | | | +--------+ + + + [...] Data Presenting rhythm is atrial flutter with CHANNEL PROGRAM MANAGER, 88 | | | bpm. CHANNEL PROGRAM MANAGER 72.4%. Heart rate histogram appears appropriate with [...] | | remote,Joel Moise MD | | |Settings | | | | | |Mode: VVIR, 70 (130) | | |Ventricular Output: 2.0V @ 0.4ms (adaptive) | | | | | |Data | | | | | |Presenting rhythm is atrial flutter with CHANNEL PROGRAM MANAGER, 88 bpm. CHANNEL PROGRAM MANAGER 72.4%. | | |Heart rate histogram appears [...]
--- OUTSIDE RECORDS SUMMARY | ~2019-10-21 | XMS | Encounter Summary ---
Demographics + + + | Address | [address] | | | [place] [address] | + + + | Home Phone | | + + + | Preferred Language | Unknown | + + + | Marital Status | | + + + | Sikh Affiliation | 1009 | + + + | Race | Unknown | + + + | Ethnic Group | Unknown | + + + Author + + + | Author | [facility] | | | and Jose Enriqueana | + + + | Organization | [facility] | | | [...] [address] | | | [place] | | [address], [place] | | | | | [address] | | + + + + + | Rickey Bui | ECON | [address] [place], [place] | | | | | [address] | | + + + + + Care Team Providers + +------+ + | Care Showcase Maker Name | Role | Phone | [...] | | | [address] [place] | [place] [address] | | | | | [place] [address] | | | | | | [phone] | | | +--------+ + + + [...] 2020 | Visit | | [address] | | | | | | [place] | | | | | | [address] | | | | | | | [...] for comparison only - no result from [employer]. | [facility] | + + + + +---------+ + + | Performing | Address | City/State/Zipcode | Phone Number | | Organization | | | | + +---------+ + + | [facility] | | | | + +---------+ + + documented in this encounter Visit Diagnoses Not on filedocumented in this encounter"
--- OUTSIDE RECORDS SUMMARY | ~2019-10-21 | XMS | Encounter Summary ---
Demographics + + + | Address | [address] | | | [place] [address] | + + + | Home Phone | | + + + | Preferred Language | Unknown | + + + | Marital Status | | + + + | Mormonism Affiliation | 1009 | + + + | Race | Unknown | + + + | Ethnic Group | Unknown | + + + Author + + + | Author | [facility] | | | and Jose Enriqueana | + + + | Organization | [facility] | | | and Jose Enriqueana | + + + | Address | Unknown | + + + | Phone | Unavailable | + + + Support + + + + + | Name | Relationship | Address | Phone | + + + + + | Sharlene Lagunas | ECON | [address] | | | [address] | | [facility] [place] | | | | | [address] | | + + + + + | Rickey Bui | ECON | [address] [place], [place] | | | | | [address] | | + + + + + Care Team Providers + +------+ + | Care Track Worker Name | Role | Phone | [...] Check | | 2016 | | CARDIOLOGY [facility] | Television Host | (Remote) | | | | [address] | | | | | | [place] [address] [place] | | | | | | [address] | | | | | | [phone] | | | +--------+ + + + [...]
--- OUTSIDE RECORDS SUMMARY | ~2019-10-21 | XMS | Encounter Summary ---
Demographics + + + | Address | [address] | | | [place] [address] | + + + | Home Phone | | + + + | Preferred Language | Unknown | + + + | Marital Status | | + + + | Judaism Affiliation | 1009 | + + + | Race | Unknown | + + + | Ethnic Group | Unknown | + + + Author + + + | Author | [facility] | | | and Jose Enriqueana | + + + | Organization | [facility] | [...] [address] | | | [place] | | [address], [place] | | | | | [address] | | + + + + + | Rickey Bui | ECON | [address] [place], [place] | | | | | [address] | | + + + + + Care Team Providers + +------+ + | Care Slate Roofer Name | Role | Phone | + [...] Refill | | 2015 | | [facility]ARDIOLOGY [facility] | MD Conchis [address] [place] [address] | | | | | [facility] [address] | [facility] [address] | | | | | [place] [address] [place] [address] | [place] [address] | | | | | [address] | [phone] | | | | | [phone] | | | +--------+--------+ + + + [...] 2020 | Visit | | [address] | | | | | | [place] | | | | | | [address] | | | | | | | | +--------+---------+ + + + documented as of this encounter Visit Diagnoses Not on filedocumented in this encounter"
--- OUTSIDE RECORDS SUMMARY | ~2019-10-21 | XMS | Encounter Summary ---
Demographics + + + | Address | [address] | | | [place] [address] | + + + | Home Phone | | + + + | Preferred Language | Unknown | + + + | Marital Status | | + + + | Jain Affiliation | 1009 | + + + | Race | Unknown | + + + | Ethnic Group | Unknown | + + + Author + + + | Author | [facility] | | | and Jose Enriqueana | + + + | Organization | [facility] | | [...] [address] | | | [place] | | [address], [place] | | | | | [address] | | + + + + + | Rickey Bui | ECON | [address] [place], [place] | | | | | [address] | | + + + + + Care Team Providers + +------+ + | Care Lamination Assembler Name | Role | Phone | + [...] pacemaker | | | | [address] [place], [place] | | (Primary Dx); | | | | [address] | | Sinoatrial node | | | | [phone] | | dysfunction (HCC) | +--------+ + [...] [place] | | | | | | [id number] | | | | | | | [...] | Alex Jensen, | [facility] | | Cloth Printer 08/11/2017 15:11 PATIENT NAME: Prabhjot Lee | [...]
--- OUTSIDE RECORDS SUMMARY | ~2019-10-21 | XMS | Encounter Summary ---
Demographics + + + | Address | [address] | | | [place] [address] | + + + | Home Phone | | + + + | Preferred Language | Unknown | + + + | Marital Status | | + + + | Zoroastrianism Affiliation | 1009 | + + + | Race | Unknown | + + + | Ethnic Group | Unknown | + + + Author + + + | Author | [facility] | | | and Jose Enriqueana | + + + | Organization | [facility] [...] [address] | | | [address] | | [address], [place] | | | | | [address] | | + + + + + | Rickey Bui | ECON | [address] [place], [place] | | | | | [address] | | + + + + + Care Team Providers + +------+ + | Care Painter Maintenance Name | Role | Phone | + [...] | dysfunction (HCC) | | | | [address] | | | | | | [phone] | | | +--------+ + + + [...] SERVIN | | | | | | [address] | | | | | | | [...] At | + + + | Luisa aMrtinez V, | [facility] | | Technologist 11/18/2016 [...] 2V @ 0.4ms Data Presenting rhythm is SHAREPOINT APPLICATION ARCHITECT. | | | SHAREPOINT APPLICATION ARCHITECT 50.9%. Patient on anticoagulant. Heart rate histograms [...] | | | | |Presenting rhythm is SHAREPOINT APPLICATION ARCHITECT. SHAREPOINT APPLICATION ARCHITECT 50.9%. Patient on anticoagulant. | | |Heart [...]
--- OUTSIDE RECORDS SUMMARY | ~2019-10-21 | XMS | Encounter Summary ---
Demographics + + + | Address | [address] | | | [place] [address] | + + + | Home Phone [...] Author | [facility] | | | and Jose Enirqueana | + + + | Organization | [facility] | [...] [address] | | | [address] | | [address] [place] | | | | | [address] | | + + + + + | Rickey Bui | ECON | [address] [place], [place] | | | | | [address] | | + + + + + Care Team Providers + +------+ + | Care First Beater Name | Role | Phone | + [...] | | 2017 | | CARDIOLOGY [facility] | Hall Director | (Remote) | | | | [address] | | | | | | [facility] [address] [place] | | | | | | [address] | | | | | | [phone] | | | +--------+ + + + [...]
--- OUTSIDE RECORDS SUMMARY | ~2019-10-21 | XMS | Encounter Summary ---
Demographics + + + | Address | [address] | | | [place] [address] | + + + | Home Phone [...] + | Author | [facility] | | | and Jose Enriqueana | + + + | Organization | [facility] | [...] [address], [place] | | | | | [address] | | + + + + + | Rickey Bui | ECON | [address] [facility] [place] | | | | | [address] | | + + + + + Care Team Providers + +------+ + | Care Food Safety Scientist Name | Role | Phone | [...] | | | extremities | | [place] [address] | | | | | with pain | | Phone: | | | | | Procedures | | [phone] | | | | | [place] OFFICE | | Fax: | | | | | OUTPATIENT | | [phone] | | | | | NEW 45 | | | | | | | MINUTES | | | +--------+--------+ + + + + Encounter Details +--------+---------+ + + + | Date | Type | Department | Care Team | Description | +--------+---------+ + + + | 12/20/ | Office | [facility] | Miguel Angel Perrin | Varicose veins of | | 2018 | Visit | SURGERY [address] | MD Shivam, FACS [address] | right lower | | | | [address] [place], [place] | [facility] | extremity with pain | | | | [address] | [place] [address] | (Primary Dx); | | | | [phone] | [phone] | Varicose veins of | | | [...] + documented in this encounter Progress Notes Miguel Angel Perrin MD, FACS - 12/20/2018 9:00 [...] N/A; Surgeon: Rickey Galvan MD ; Location: [facility] ELECTROPHYSIOLOGY AORTIC ROOT ANEURYSM RESECTION AORTIC [...] 1 capsule by mouth Daily. Also has N-Plwrhz-Bhp teine 250 mg & Pyrroloquinoline PQQ 10 [...] tablet Take 30 mg by mouth Daily. Mobile Thyroid 75 mg i n the morning [...] leg ULTRASOUND REPORT: [facility]: mgMEDIA M-Red Loop Mediao with 10-5 mHertz probe. INDICATIONS: Bilateral large, [...] 2019 | Visit | | [address] | | | | | | [...]
--- OUTSIDE RECORDS SUMMARY | ~2019-10-21 | XMS | Encounter Summary ---
Demographics + + + | Address | [address] | | | [place] [address] | + + + | Home Phone [...] Author | [facility] | | | and Jose Enriqueana | + + + | Organization | [facility] | | | and Jose Enriqueana | + + + | Address | Unknown | + + + | Phone | Unavailable | + + + Support + + + + + | Name | Relationship | Address | Phone | + + + + + | Sharlene Lagunas | ECON | [address] | | | [place] | | [address], [place] | | | | | [address] | | + + + + + | Rickey Bui | ECON | [address] [place], [place] | | | | | [address] | | + + + + + Care Team Providers + +------+ + | Care Electrical Engineering Director Name | Role | Phone | [...] [address] | | dysfunction ([facility]) | | | | [address] | | | | | | [phone] | | | +--------+ + + + [...] 2020 | Visit | | [address] | | | | | | [place] | | | | | | [address] | | | | | | | [...] PATIENT NAME: Prabhjot Lee | | | [facility] : 1945: AGE: 67 y.o. Remote | [...] Data Presenting rhythm is Atrial Fibrillation with BUSINESS ANALYTICS SPECIALIST. AP | | | 60.8%. BUSINESS ANALYTICS SPECIALIST 35.7%. Heart rate histograms appear appropriate. Battery [...] | |Presenting rhythm is Atrial Fibrillation with BUSINESS ANALYTICS SPECIALIST. AP 60.8%. BUSINESS ANALYTICS SPECIALIST | | |35.7%. Heart rate histograms appear [...] @ 0.4msDataPresenting rhythm is Atrial Fibrillation with BUSINESS ANALYTICS SPECIALIST. | | AP 60.8%. BUSINESS ANALYTICS SPECIALIST 35.7%. Heart rate histograms appear appropriate. Battery [...] | |Presenting rhythm is Atrial Fibrillation with BUSINESS ANALYTICS SPECIALIST. AP 60.8%. BUSINESS ANALYTICS SPECIALIST 35.7%. Heart rate histogr ams appear appropriate. [...]
--- OUTSIDE RECORDS SUMMARY | ~2019-10-21 | XMS | Encounter Summary ---
Demographics + + + | Address | [address] | | | [place] [address] | + + + | Home Phone [...] + | Author | [facility] | | | and Jose Enriqueana | + + + | Organization | [facility] | | [...] SW | | | [address] | | [place], [place] | | | | | [address] | | + + + + + | Rickey Bui | ECON | [address] [place], [place] | | | | | [address] | | + + + + + Care Team Providers + +------+ + | Care Distillery Worker General Name | Role | Phone | + +------+ + | Tayo Robles DO | PCP | | + +------+ + Encounter Details +--------+ + + + + | Date | Type | Department | Care Team | Description | +--------+ + + + + | 10/10/ | Orders Only | JENN[facility] | Joel Moise | | | 2012 | | CARDIOLOGY [facility] | MD [address]ch[address] | | | | | [address] | [address] | | | | | [facility] [[email or web address] [address] | [place] [address] | | | | | [address] | [phone] | | | | | [phone] | | | +--------+ + + + [...] SERVIN | | | | | | [address] | | | | | | | [...]
--- OUTSIDE RECORDS SUMMARY | ~2019-10-21 | XMS | Encounter Summary ---
Demographics + + + | Address | [address] | | | [place] [address] | + + + | Home Phone [...] | Author | [facility] | | | and Jose Enriqueana | + + + | Organization | [facility] [...] SW | | | Hao | | [place], [place] | | | | | [address] | | + + + + + | Rickey Bui | ECON | [address] [place], [place] | | | | | [address] | | + + + + + Care Team Providers + +------+ + | Care Software Sales Consultant Name | Role | Phone | [...] Check | | 2019 | | CARDIOLOGY [facility] | MD [address]ch[address] | (Remote) | | | | [facility] [address] | [place] [address] | | | | | [place] [address] [address] | [place] [address] | | | | | [address] | [phone] | | | | | [phone] | | | +--------+ + + + [...]
--- OUTSIDE RECORDS SUMMARY | ~2019-10-21 | XMS | Encounter Summary ---
Demographics + + + | Address | [address] | | | [place] [address] | + + + | Home Phone [...] + | Author | [facility] | | | and Jose Enriqueana | + + + | Organization | [facility] | [...] SW | | | Hao | | [address], [place] | | | | | [address] | | + + + + + | Rickey Bui | ECON | [address] [place], [place] | | | | | [address] | | + + + + + Care Team Providers + +------+ + | Care Grease And Tallow Pumper Name | Role | Phone | + +------+ + PCP | Unavailable | + +------+ + Encounter Details +--------+ + + + + | Date | Type | Department | Care Team | Description | +--------+ + + + + | 06/14/ | Hospital | [facility] | | | | 1997 - | Encounter | MED CTR ICU [address] | | | | | | [place], | | | | 06/15/ | | [place] [address] | | | | 1997 | | [phone] | | | +--------+ + + + [...] SERVIN | | | | | | [address] | | | | | | | | +--------+---------+ + + + documented as of this encounter Visit Diagnoses Not on filedocumented in this encounter"
--- OUTSIDE RECORDS SUMMARY | ~2019-10-21 | XMS | Encounter Summary ---
Demographics + + + | Address | [address] | | | [place] [address] | + + + | Home Phone [...] + | Author | [facility] | | | and Jose Enriqueana | + + + | Organization | [facility] | [...] SW | | | [place] | | [address], [place] | | | | | [address] | | + + + + + | Rickey Bui | ECON | [address] [place], [place] | | | | | [address] | | + + + + + Care Team Providers + +------+ + | Care Parasitology Teacher Name | Role | Phone | [...] | CARDIOLOGY JESSE | MD Conchis [address] | | | | | [address] | [address] | | | | | [place] [address] | [place] [address] | | | | | [address] | [phone] | | | | | [address] | | | | | | [phone] | | | +--------+ + + + [...] . Overall, this is very good news. Joel Moise MD documented in thi s encounter Plan of Treatment +--------+---------+ + + + | Date | Type | Specialty | Care Team | Description | +--------+---------+ + + + | 10/30/ | Office | Sleep Medicine | Rickey Zaragoza PA | | | 2019 | Visit | | [address] | | | | | | [facility] | | | | | | [address] | | | | | | | | +--------+---------+ + + + documented as of this encounter Visit Diagnoses Not on filedocumented in this encounter"
--- OUTSIDE RECORDS SUMMARY | ~2019-10-21 | XMS | Clinical Summary ---
Demographics + + + | Address | [address] | | | [place] [address] | + + + | Home Phone | | + + + | Preferred Language | Unknown | + + + | Marital Status | | + + + | Latter Day Affiliation | 1009 | + + + | Race | Unknown | + + + | Ethnic Group | Unknown | + + + Author + + + | Author | [facility] | | | and Jose Enriqueana | + + + | Organization | [facility] | | | and [...] | | | Hao | | [address] [place] | | | | | [address] | | + + + + + | Rickey Bui | ECON | [address] [facility] [place] | | | | | [address] | | + + + + + Care Team Providers + +------+ + | Care Supervisor Rose Grading Name | Role | Phone | + [...] | | | | | | | Y-Cdsvgx-Lssqmlvd | | | | | | | [...] | | THYROID) 30 mg | Daily. 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 Last | | Assessment & Plan: [facility] | | 9 yearsVentricular paced [...] 08/19/ | Implant | Cardiology | Damaris Preciaod, | Sinoatrial node | | 2019 | [...] Office | Jennyfer Balderrama MD | dysfunction ([facility]) DO | | | Visit | | | NOT DELETE. | | | | | | (Primary Dx); | | | | | | Hypertension; Atrial | | | | | | fibrillation, | | | | | | unspecified type | | | | | | ([facility]); S/P AVR; | | | | | | Pacemaker - | | | | | | Medtronic - ADDRL1 | | | | | | Adapta - SN: | | | | | | [id number] Implanted | | | | | | [...] SERVIN | | | | | | [id number] | | | | | | | [...] | | t Plan | ID | sernia | | | | | | / | | Dates | | | | | | Group | | | | | | + +--------+ +--------+ +---------+--------+ | MEDICARE | MEDICA | [id number] | 11/20/19 | [phone] | | Medica | | | RE | | 11-Pre | 5 | | re | | | PART A | | sent | | | | | | AND B | | | | | | + +--------+ +--------+ +---------+--------+ | GEHA | GEHA | [id number] | 05/22/19 | [phone] | | Indemn [...] Jesus | rodo/Elder | | 1946 | [phone] | [place] [address] | | | isadora | | | 0 (Home) | | + +--------+ +--------+ + + Advance Directives + + + + + | Type | Date Recorded | Patient | Explanation | | | | Beater Tender | | + + + + + | Power of | | | | | Facsimile Machine Operator | | | | + + + + + | Advance | 04/30/2014 | | at home & at [facility] | | Directive | 7:45 AM | | | + + + + +
--- OUTSIDE RECORDS SUMMARY | ~2019-10-21 | XMS | Encounter Summary ---
Demographics + + + | Address | [address] | | | [place] [address] | + + + | Home Phone [...] Author | [facility] | | | and Jose Enriqueana | + + + | Organization | [facility] | [...] SW | | | Hao | | [address], [place] | | | | | [address] | | + + + + + | iRckey Bui | ECON | [address] [place], [place] | | | | | [address] | | + + + + + Care Team Providers + +------+ + | Care Textiles Printer Name | Role | Phone | + +------+ + PCP | Unavailable | + +------+ + Encounter Details +--------+ + + + + | Date | Type | Department | Care Team | Description | +--------+ + + + + | 03/01/ | Hospital | [facility] | Aditya Kenyon, | | | 2003 | Encounter | MED CTR SLEEP | [place] [address] | | | | | [place] [address] | [place], [place] | | | | | [place], [place] | [address] | | | | | [address] | | | | | | [phone] | | | +--------+ + + + [...] SERVIN | | | | | | [id number] | | | | | | | | +--------+---------+ + + + documented as of this encounter Visit Diagnoses Not on filedocumented in this encounter"
--- OUTSIDE RECORDS SUMMARY | ~2019-10-21 | XMS | Encounter Summary ---
Demographics + + + | Address | [address] | | | [place] [address] | + + + | Home Phone [...] | Author | [facility] | | | and Jose Enriqueana | + + + | Organization | [facility] | [...] SW | | | Hao | | [place], [place] | | | | | [address] | | + + + + + | Rickey Bui | ECON | [address] [place], [place] | | | | | [address] | | + + + + + Care Team Providers + +------+ + | Care Geometry Professor Name | Role | Phone | [...] Check | | 2018 | | CARDIOLOGY [facility] | Blaire, | (Remote) (Pre-appt | | | | [address] | Technologist | remote) | | | | [address] | | | | | | [address] | | | | | | [phone] | | | +--------+ + + + [...] SERVIN | | | | | | [address] | | | | | | | | +--------+---------+ + + + documented as of this encounter Visit Diagnoses Not on filedocumented in this encounter"
--- OUTSIDE RECORDS SUMMARY | ~2019-10-21 | XMS | Encounter Summary ---
Demographics + + + | Address | [address] | | | [place] [address] | + + + | Home Phone [...] Author | [facility] | | | and Jose Enriqueana | + + + | Organization | [facility] | [...] SW | | | Hao | | [address] [place] | | | | | [address] | | + + + + + | Rickey Bui | ECON | [address] [place], [place] | | | | | [address] | | + + + + + Care Team Providers + +------+ + | Care Substitute Crossing Guard Name | Role | Phone | + [...] [place] | | | | | | [address] | | | | | | [phone] | | | +--------+ + + + [...] SERVIN | | | | | | [address] | | | | | | | | +--------+---------+ + + + documented as of this encounter Visit Diagnoses Not on filedocumented in this encounter"
--- OUTSIDE RECORDS SUMMARY | ~2019-10-21 | XMS | Encounter Summary ---
Demographics + + + | Address | [address] | | | [place] [address] | + + + | Home Phone [...] | Author | [facility] | | | and Jose Enriqueana | + + + | Organization | [facility] | | [...] SW | | | Hao | | [address], [place] | | | | | [address] | | + + + + + | Rickey Bui | ECON | [address] [place], [place] | | | | | [address] | | + + + + + Care Team Providers + +------+ + | Care Geotechnical Laboratory Technician Name | Role | Phone | [...] Refill | | 2016 | | CARDIOLOGY [facility] | MD Conchis [address] [place] [address] | | | | | [facility] [address] | [facility] [address] | | | | | [place] [address] [address] | [place] [address] | | | | | [address] | [phone] | | | | | [phone] | | | +--------+--------+ + + + [...]
--- OUTSIDE RECORDS SUMMARY | ~2019-10-21 | XMS | Encounter Summary ---
Demographics + + + | Address | [address] | | | [place] [address] | + + + | Home Phone | | + + + | Preferred Language | Unknown | + + + | Marital Status | | + + + | Orthodoxy Affiliation | 1009 | + + + | Race | Unknown | + + + | Ethnic Group | Unknown | + + + Author + + + | Author | [facility] | | | and Jose nEriqueana | + + + | Organization | [facility] | | | and Jose Enriqueana | + + + | Address | Unknown | + + + | Phone | Unavailable | + + + Support + + + + + | Name | Relationship | Address | Phone | + + + + + | Sharlene Lagunas | ECON | [address] | | | [place] | | [place], [place] | | | | | [address] | | + + + + + | Rickey Bui | ECON | [address] [place], [place] | | | | | [address] | | + + + + + Care Team Providers + +------+ + | Care Auto Carrier Driver Name | Role | Phone | [...] needs CXR) pt | | | | [address] | | will call/see pcp) | | | | [address] | | | | | | [phone] | | | +--------+ + + + [...]
--- OUTSIDE RECORDS SUMMARY | ~2019-10-21 | XMS | Encounter Summary ---
Demographics + + + | Address | [address] | | | [place] [address] | + + + | Home Phone [...] | Author | [facility] | | | and Jose Enriqueana | + + + | Organization | [facility] [...] SW | | | [place] | | [address], [place] | | | | | [address] | | + + + + + | Rickey Bui | ECON | [address] [place], [place] | | | | | [address] | | + + + + + Care Team Providers + +------+ + | Care Identification And Records Commander Name | Role | Phone | + +------+ + | Tayo Robles DO | PCP | | + +------+ + Encounter Details +--------+ + + + + | Date | Type | Department | Care Team | Description | +--------+ + + + + | 03/07/ | Hospital | [facility] | Joel Moise | | | 2012 | Encounter | MED CTR CARDIAC | MD [address] | | | | | [address] | [address] | | | | | [address] | [place] [address] | | | | | [place], [place] | [phone] | | | | | [address] | | | | | | [phone] | | | +--------+ + + + [...] + + +---------+ + + | Saw [place], | CAPS four daily | | 0 [...] SERVIN | | | | | | [address] | | | | | | | [...] + | JENNIE IGLESIAS | [address] | [place] [address] | | | [facility] | | | | | LABORATORY | [...] | [address] | [place] [address] | | | [facility] | [...] + | [facility] | [address] | [place] [address] | | | [facility] | | | | | [...] + | [facility] | [address] | [place] [address] | | | [facility] | | | | | [...] + + | Glucose | 110 (H)Comment: Micronesian | 65 - 99 mg/dL | [facility] [...] + | JENNIE IGLESIAS | [address] | [place] [address] | | | [facility] | | | | | LABORATORY | | | | + + + + + documented in this encounter Visit Diagnoses Not on filedocumented in this encounter"
--- OUTSIDE RECORDS SUMMARY | ~2019-10-21 | XMS | Encounter Summary ---
Demographics + + + | Address | [address] | | | [place] [address] | + + + | Home Phone [...] | Author | [facility] | | | and Jose Enriqueana | + + + | Organization | [facility] [...] SW | | | [place] | | [address], [place] | | | | | [address] | | + + + + + | Rickey Bui | ECON | [address] [place], [place] | | | | | [address] | | + + + + + Care Team Providers + +------+ + | Care Cut Off Saw Tender Metal Name | Role | Phone | + [...] Implanted | | | | [address] [place], [place] | | 02/27/2012 DO NOT | | | | [address] | | RESOLVE (Primary | | | | [phone] | | Dx); Sinoatrial node | | [...] | | | | | [place] | | | | | | [address] | | | | | | | [...] + | Alex Jensen, | | | senior international tax manager 07/22/2015 12:03 PATIENT NAME: Prabhjot Bui | | | : 1945: AGE: 68 y.o. Pacemaker Evaluation Report | | | January 06, 2014 Reason for evaluation: requestedIndication for | | | pacemaker: ICD-9-CM 1. Pacemaker - Medtronic - ADDRL1 Adapta - | | | Implanted 02/27/2012 DO NOT RESOLVE V45.01 Device Interrogation 2. | | | Sinoatrial node dysfunction ([facility]) DO NOT DELETE. 427.81 Device | | [...]
--- OUTSIDE RECORDS SUMMARY | ~2019-10-21 | XMS | Encounter Summary ---
Demographics + + + | Address | [address] | | | [place] [address] | + + + | Home Phone [...] | Author | [facility] | | | and Jose Enriqueana | + + + | Organization | [facility] | | [...] SW | | | [place] | | [place], [place] | | | | | [address] | | + + + + + | Rickey Bui | ECON | [address] [place], [place] | | | | | [address] | | + + + + + Care Team Providers + +------+ + | Care Plasma Processing Centrifuge Operator Name | Role | Phone | [...] MD [address] | dysfunction ([facility]) DO | | | | [address] | [address] | NOT DELETE. | | | | [address] [address] [place] | [place] [address] | (Primary Dx); | | | | [address] | [phone] | Pacemaker - | | | | [phone] | | Medtronic - ADDRL1 | | | | | | Adapta - Implanted | | | | | | 02/27/2012 DO NOT | | | | | | RESOLVE; Atrial | | | | | | fibrillation, | | | | | | unspecified type | | | | | | ([facility]); 2. Bicuspid | | | | | [...] Pulmonary vein isolation carried out at the [facility] on 09/01/01. Aortic insufficiency and aortic [...] SARAVIA; Laterality: N/A; Surgeon: Ty Arzola; Location: [facility] ELECTROPHYSIOLOGY Hip joint replacement Left 05/17/15 His [...] 1 capsule by mouth Daily. Also has D-Dingze-Quu teine 250 mg & Pyrroloquinoline PQQ 10 [...] 1 tablet by Daily. 90 tablet 3 INVENTORY COORDINATOR THYROID 30 MG tablet Take 1 tablet [...] mouth See Admin Instructions. As directed by yDlan TA No facility-administered encounter medications on file [...] at 75 bpm Pacemaker Analysis: 09/06/2016 See auto body repair technician report. Thresholds are good. Outputs are [...] Medicine - Sports Medicine) KENNETH Givens (Physician Rpg Developer) Augusto Kunz MD as Physician (Cardiology) documented in thi s encounter Plan of Treatment +--------+---------+ + + + | Date | Type | Specialty | Care Team | Description | +--------+---------+ + + + | 10/30/ | Office | Sleep Medicine | Rickey Zaragoza PA | | | 2020 | Visit | | [address] | | | | | | [place] | | | | | | [address] | | | | | | | [...]
--- OUTSIDE RECORDS SUMMARY | ~2019-10-21 | XMS | Encounter Summary ---
Demographics + + + | Address | [address] | | | [place] [address] | + + + | Home Phone [...] [facility] | | | and Jose Enriqueana | + + + | Organization | [facility] | [...] SW | | | [place] | | [place], [place] | | | | | [address] | | + + + + + | Rickey Bui | ECON | [address] [place], [place] | | | | | [address] | | + + + + + Care Team Providers + +------+ + | Care Residential Director Name | Role | Phone | [...] Cardiology | Diagnoses | [facility] | | | | | 3/3rds Per | [place] | Cardiology | | | | | [...] | ov and | [place] | [address] | | | | | device check | [address] | Phone: | | | | | | | [phone] | | | | | | | Fax: | | | | | | | [phone] | +--------+--------+ + + + + Encounter Details +--------+---------+ + + + | Date | Type | Department | Care Team | Description | +--------+---------+ + + + | 11/13/ | Office | [facility]ENNIE [facility] | Joel Moise | Atrial | | 2013 | Visit | CARDIOLOGY [facility] | MD [address] | fibrillation/atrial | | | | [facility] [address] | [address] | flutter (Primary | | | | [address] | [place] [address] | Dx); | | | | [address] | [phone] | Hyperthyroidism; Hx | | | | [phone] | | of amiodarone | | | [...] been in atrial fibrillation almost persistently since [facility]. 2. A fibrillation In atrial fibrillation approximately [...] by Does not apply route Daily. Saw [place], Serenoa repens, ([place] PO) CAPS four [...] strength is equal bilaterally. Pacemaker analysis: See technicians and trades workers report Thresholds are good in the ventricle. [...] Medicine - Sports Medicine) KENNETH Givens (Physician Tower Attendant) Joel Moise MD as Physician (Cardiology) Portions of this report were transcribed using voice recognition software. Every effort was made to ensure accuracy; however, inadvertent computerized dynamics ax technical architect errors may be pres ent. documented in this e ncounter Plan of Treatment +--------+---------+ + + + | Date | Type | Specialty | Care Team | Description | +--------+---------+ + + + | 10/30/ | Office | Sleep Medicine | Rickey Zaragoza PA | | | 2020 | Visit | | [address] | | | | | | [facility] [place] | | | | | | [phone] | | | | | | | [...] per ANASTASIYA Wong , dany in | [place] - | | 6 months. See Phone note | [facility] | + + + + + + + + | Performing | Address | City/State/Zipcode | Phone Number | | Organization | | | | + + + + + | [place] | [facility] [address] | [place] [address] | [phone] | | - [facility] | [...]
--- OUTSIDE RECORDS SUMMARY | ~2019-10-21 | XMS | Encounter Summary ---
Demographics + + + | Address | [address] | | | [place] [address] | + + + | Home Phone [...] | Author | [facility] | | | and Jose Enriqueana | + + + | Organization | [facility] | [...] SW | | | [place] | | [address], [place] | | | | | [address] | | + + + + + | Rickey Bui | ECON | [address] [place], [place] | | | | | [address] | | + + + + + Care Team Providers + +------+ + | Care Dough Raiser Name | Role | Phone | + +------+ + PCP | Unavailable | + +------+ + Encounter Details +--------+ + + + + | Date | Type | Department | Care Team | Description | +--------+ + + + + | 06/14/ | Hospital | [facility] | | | | 1997 - | Encounter | MED CTR ICU [address] | | | | | | [place], | | | | 06/15/ | | [place] [address] | | | | 1997 | | [phone] | | | +--------+ + + + [...] SERVIN | | | | | | [address] | | | | | | | | +--------+---------+ + + + documented as of this encounter Visit Diagnoses Not on filedocumented in this encounter"
--- OUTSIDE RECORDS SUMMARY | ~2019-10-21 | XMS | Encounter Summary ---
Demographics + + + | Address | [address] | | | [place] [address] | + + + | Home Phone [...] | Author | [facility] | | | and Jose Enriqueana | + + + | Organization | [facility] | [...] SW | | | [place] | | [place], [place] | | | | | [address] | | + + + + + | Rickey Castaneda | ECON | [address] [place], [place] | | | | | [address] | | + + + + + Care Team Providers + +------+ + | Care Legal Associate Name | Role | Phone | [...] | | | | | Bicuspid | Augusto Balderrama, | Pshi Grocery Manager | | | | | aortic valve | MD [address] | [address] [address] | | | | | Procedures | [address] | [address] [place] | | | | | ECHO | [address] | [address] | | | | | Complete | [place] | [place] | | | | | | [address] | [place] | | | | | | Phone: | [phone] | | | | | | [phone] | Phone: | | | | | | Fax: | [phone] | | | | | | [phone] | Fax: | | | | | | | [phone] | +--------+--------+ + + + + Reason for Visit + + + | Reason | Comments | + + + | Appointment Question | | + + + Encounter Details +--------+ + + + + | Date | Type | Department | Care Team | Description | +--------+ + + + + | 10/22/ | Telephone | JENNIE MONTANA | Augusto Kunz | Appointment Question | | 2016 | | [facility] | MD Conchis [address] [place] [address] | | | | | [address] | [place] [address] | | | | | [place] [address] [place] | [place] [address] | | | | | [address] | [phone] | | | | | [phone] | | | +--------+ + + + [...] SERVIN | | | | | | [address] | | | | | | | [...] in this encounter Results ECHO Complete (01/20/2016 1:32 PM PDT) + + | Specimen | + + | | + + + + ----+ | Narrative | Performed At | + + ----+ | | [facility] | | | | | Adult | | | Echo | | | | | | Report Name: PRABHJOT CASTANEDA | | | Study Date: 01/20/2016MRN: [id number] | | | [facility] 1945 [facility] | Age: 70 yrs Gender: MaleHeight: 70 in | | | Weight: 240 lb BSA: 2.3 | | | m2BP: 124/80 mmHg HR: 70 | | | Rhythm: pacedHistory: Bicuspid aortic valve with | | | bioprosthetic aortic valvereplacement, pacemakerReason For Study: | | | Follow up aortic valve replacement AUC 50 INTERPRETATION SUMMARY:A | | | complete two-dimensional transthoracic echocardiogram was performed | | | (2D,M-mode, Doppler and color flow Doppler). 1. Normal biventricular | | | systolic function. The estimated LVEF is 55%.2. Moderate to severe | | | atrial enlargement.3. Mild mitral regurgitation.4. Moderate tricuspid | | | valve regurgitation.5. Normal bioprosthetic aortic valve function.6. | | | Normal estimated pulmonary pressure. Left Ventricle:The left ventricle | | | is normal in size. There is normal left ventricularwall thickness. | | | Left ventricular systolic function is normal. Theestimated ejection | | | fraction is 55%. Septal motion is consistent withpacemaker activation. | | | Right Ventricle:The right ventricle is normal in size and function. | | | There is a pacemakerlead in the right ventricle. Atria:There is | | | moderate to severe biatrial enlargement. The IVC inspiratorycollapse | | | is normal at greater than 50%. The IVC dimension is 2.3 cm. Noobvious | | | septal defect is seen with color Doppler. Mitral Valve:The mitral | | | valve is grossly normal. There is mild mitral regurgitation. Tricuspid | | | Valve:Normal tricuspid valve. There is moderate tricuspid | | | regurgitation.Estimated PA pressure is 29-34 mmHg. Aortic Valve:A | | | normally functioning bioprosthesis is seen in the aortic position. | | | Theaortic valve peak systolic velocity was measured at 1.6 m/sec. The | | | aorticvalve peak systolic gradient was measured at 10 mm Hg. The | | | aortic valvemean systolic gradient was measured at 6 mm Hg. Trace | | | aorticinsufficiency. Pulmonic Valve:The pulmonic valve is grossly | | | normal. Trace pulmonic valvularregurgitation. Great Vessels:The aortic | | | root is normal size. The ascending aorta appears grosslynormal. The | | | aortic arch was not well visualized. Pericardium/Pleural:There is no | | | pericardial effusion. MMode/2D Measurements & CalculationsIVSd: 0.97 | | | cm LVIDd: 5.0 cmIVSs: 1.5 cm | | | LVIDs: 3.3 cm | | | LVPWd: 1.3 cm | | | LVPWs: 1.7 cm FS: 34.4 % | | | Ao root diam: 3.1 cm | | | ACS: 1.7 cm LA | | | dimension: 5.5 cmLVOT diam: 2.0 cm Doppler Measurements & | | | CalculationsMV E max daniel: 88.3 cm/sec Ao V2 max: | | | 160.3 cm/sec | | | Ao max P.3 mmHg | | | Ao mean P.2 mmHg | | | Ao V2 VTI: 35.7 cm | | | GISELE(I,D): 1.9 cm2 | | | GISELE(V,D): 2.0 cm2LV V1 max P.0 mmHg | | | SV(LVOT): 69.0 mlLV V1 mean P.1 mmHgLV V1 | | | max: 100.4 cm/secLV V1 VTI: 22.0 cm Interpreting Physician: Aditya Hare | | | MD Jose De Jesuselectronically signed on 01/20/2016 07:09 PMOrdering | | | Physician: AUGUSTO KUNZEchocardiographer: Minnie Crawford | | | [id number]: | | |The aortic root is normal size. The ascending aorta appears grossly | | |normal. The aortic arch was not well visualized. | | | | | |Pericardium/Pleural: | | |There is no pericardial effusion. | | | | | |MMode/2D Measurements & Calculations | | |IVSd: 0.97 cm LVIDd: 5.0 cm | | |IVSs: 1.5 cm LVIDs: 3.3 cm | | | LVPWd: 1.3 cm | | | LVPWs: 1.7 cm | | | | | |FS: 34.4 % Ao root diam: 3.1 cm | | | ACS: 1.7 cm | | | LA dimension: 5.5 cm | | |LVOT diam: 2.0 cm | | | | | |Doppler Measurements & Calculations | | |MV E max daniel: 88.3 cm/sec Ao V2 max: 160.3 cm/sec | | | Ao max P.3 mmHg | | | Ao mean P.2 mmHg | | | Ao V2 VTI: 35.7 cm | | | GISELE(I,D): 1.9 cm2 | | | | | | GISELE(V,D): 2.0 cm2 | | |LV V1 max P.0 mmHg SV(LVOT): 69.0 ml | | |LV V1 mean P.1 mmHg | | |LV V1 max: 100.4 cm/sec | | |LV V1 VTI: 22.0 cm | | | | | |Interpreting Physician: Aditya Dela Cruz MD | | |electronically signed on 01/20/2016 07:09 PM | | |Ordering Physician: AUGUSTO KUNZ | | |Chicken Vaccinator: Minnie Cantu | | |[id number]: | | | | | + + ----+ + + | Procedure Note | + + | Zia George Results In - 01/20/2016 7:10 PM PDT | | Adult | | Echo | | Report | | | | Name: PRABHJOT CASTANEDA Study Date: 01/20/2016 | | [facility] | | : 1945 Age: 70 yrs Gender: Male | | Height: 70 in Weight: 240 lb BSA: 2.3 m2 | | BP: 124/80 mmHg HR: 70 Rhythm: paced | | History: Bicuspid aortic valve with bioprosthetic aortic valve | | replacement, pacemaker | | Reason For Study: Follow up aortic valve replacement AUC 50 | | | | INTERPRETATION SUMMARY: | | A complete two-dimensional transthoracic echocardiogram was performed (2D, | | M-mode, Doppler and color flow Doppler). | | | | 1. Normal biventricular systolic function. The estimated LVEF is 55%. | | 2. Moderate to severe atrial enlargement. | | 3. Mild mitral regurgitation. | | 4. Moderate tricuspid valve regurgitation. | | 5. Normal bioprosthetic aortic valve function. | | 6. Normal estimated pulmonary pressure. | | | | Left Ventricle: | | The left ventricle is normal in size. There is normal left ventricular | | wall thickness. Left ventricular systolic function is normal. The | | estimated ejection fraction is 55%. Septal motion is consistent with | | pacemaker activation. | | | | Right Ventricle: | | The right ventricle is normal in size and function. There is a pacemaker | | lead in the right ventricle. | | | | Atria: | | There is moderate to severe biatrial enlargement. The IVC inspiratory | | collapse is normal at greater than 50%. The IVC dimension is 2.3 cm. No | | obvious septal defect is seen with color Doppler. | | | | Mitral Valve: | | The mitral valve is grossly normal. There is mild mitral regurgitation. | | | | Tricuspid Valve: | | Normal tricuspid valve. There is moderate tricuspid regurgitation. | | Estimated PA pressure is 29-34 mmHg. | | | | Aortic Valve: | | A normally functioning bioprosthesis is seen in the aortic position. The | | aortic valve peak systolic velocity was measured at 1.6 m/sec. The aortic | | valve peak systolic gradient was measured at 10 mm Hg. The aortic valve | | mean systolic gradient was measured at 6 mm Hg. Trace aortic | | insufficiency. | | | | Pulmonic Valve: | | The pulmonic valve is grossly normal. Trace pulmonic valvular | | regurgitation. | | | | Great Vessels: | | The aortic root is normal size. The ascending aorta appears grossly | | normal. The aortic arch was not well visualized. | | | | Pericardium/Pleural: | | There is no pericardial effusion. | | | | MMode/2D Measurements & Calculations | | IVSd: 0.97 cm LVIDd: 5.0 cm | | IVSs: 1.5 cm LVIDs: 3.3 cm | | LVPWd: 1.3 cm | | LVPWs: 1.7 cm | | | | FS: 34.4 % Ao root diam: 3.1 cm | | ACS: 1.7 cm | | LA dimension: 5.5 cm | | LVOT diam: 2.0 cm | | | | Doppler Measurements & Calculations | | MV E max daniel: 88.3 cm/sec Ao V2 max: 160.3 cm/sec | | Ao max P.3 mmHg | | Ao mean P.2 mmHg | | Ao V2 VTI: 35.7 cm | | GISELE(I,D): 1.9 cm2 | | | | GISELE(V,D): 2.0 cm2 | | LV V1 max P.0 mmHg SV(LVOT): 69.0 ml | | LV V1 mean P.1 mmHg | | LV V1 max: 100.4 cm/sec | | LV V1 VTI: 22.0 cm | | | | Interpreting Physician: Aditya Dela Cruz MD | | electronically signed on 01/20/2016 07:09 PM | | Ordering Physician: AUGUSTO KUNZ | | Chicken Vaccinator: Minnie Cantu | | [id number]: | + + + +---------+ + + [...] valve | + + documented in this encounter"
--- OUTSIDE RECORDS SUMMARY | ~2019-10-21 | XMS | Encounter Summary ---
Demographics + + + | Address | [address] | | | [place] [address] | + + + | Home Phone [...] | Author | [facility] | | | and Jose Enriqueana | + + + | Organization | [facility] | | [...] [address] | | | [address] | | [place], [place] | | | | | [address] | | + + + + + | Rickey Bui | ECON | [address] [place], [place] | | | | | [address] | | + + + + + Care Team Providers + +------+ + | Care Welder Production Line Combination Name | Role | Phone | + [...] | dysfunction (HCC) | | | | [address] | | (Primary Dx); | | | | [place] [address] [place] | | Cardiac pacemaker in | | | | [place] | | situ | | | | [address] | | | | | | [phone] | | | +--------+ + + + [...] SERVIN | | | | | | [address] | | | | | | | [...] Data Presenting rhythm is atrial flutter with CONTROL PANEL OPERATOR CRUDE UNIT, | | | ~82 bpm. CONTROL PANEL OPERATOR CRUDE UNIT 72.6%. Heart rate histogram appears appropriate. | [...] | |Presenting rhythm is atrial flutter with CONTROL PANEL OPERATOR CRUDE UNIT, ~82 bpm. CONTROL PANEL OPERATOR CRUDE UNIT 72.6%. | | |Heart rate histogram appears [...]
--- OUTSIDE RECORDS SUMMARY | ~2019-10-21 | XMS | Encounter Summary ---
Demographics + + + | Address | [address] | | | [place] [address] | + + + | Home Phone [...] + | Author | [facility] | | | and Jose Enriqueana | + + + | Organization | [facility] | | | and Jose Enriqueana | + + + | Address | Unknown | + + + | Phone | Unavailable | + + + Support + + + + + | Name | Relationship | Address | Phone | + + + + + | Sharlene Lagunas | ECON | [address] | | | [place] | | [place], [place] | | | | | [address] | | + + + + + | Rickey Castaneda | ECON | [address] [place], [place] | | | | | [address] | | + + + + + Care Team Providers + +------+ + | Care Cell Tester Name | Role | Phone | [...] | Bicuspid | Augusto Balderrama, | Pshi Quality Manager | | | | | aortic valve | MD [address] | [address] [address] | | | | | Procedures | [address] | [address] [place] | | | | | ECHO | [address] | [address] | | | | | Complete | [place] | [place] | | | | | | [address] | [place] | | | | | | Phone: | [address] | | | | | | [phone] | Phone: | | | | | | Fax: | [phone] | | | | | | [phone] | Fax: | | | | | | | [phone] | +--------+--------+ + + + + Reason [...] [facility] | MD Conchis [address] [place] [address] | | | | | [address] | [place] [address] | | | | | [place] [address] [place] | [place] [id number] | | | | | [address] | [phone] | | | | | [phone] | | | +--------+ + + + [...] SERVIN | | | | | | [address] | | | | | | | [...] CASTANEDA | | | Study Date: 01/20/2016MRN: [id number] | | | [facility] 1945 | | | Age: 70 yrs [...] AUGUSTO KUNZEchocardiographer: Minnie Crawford | | | [id number]: | | |The aortic root is normal [...] | |Ordering Physician: AUGUSTO KUNZ | | |As400 Programmer Analyst: Minnie Cantu | | |[id number]: | | | | | + + ----+ + + | Procedure Note | + + | Zia George Results In - 01/20/2016 7:10 PM PDT | | Adult | | Echo | | Report | | | | Name: PRABHJOT CASTANEDA Study Date: 01/20/2016 | | Patient Location: [facility] | | : 1945 Age: 70 yrs [...] | Ordering Physician: AUGUSTO KUNZ | | As400 Programmer Analyst: Minnie Cantu | | [id number]: | + + + +---------+ + + [...]
--- OUTSIDE RECORDS SUMMARY | ~2019-10-21 | XMS | Encounter Summary ---
Demographics + + + | Address | [address] | | | [place] [address] | + + + | Home Phone [...] Author | [facility] | | | and Jose Enriqueana | + + + | Organization | [facility] | | [...] [address] | | | [place] | | [place], [place] | | | | | [address] | | + + + + + | Rickey Bui | ECON | [address] [place], [place] | | | | | [address] | | + + + + + Care Team Providers + +------+ + | Care Cat Driver Name | Role | Phone | + +------+ + | Tayo Robles DO | PCP | | + +------+ + Encounter Details +--------+ + + + + | Date | Type | Department | Care Team | Description | +--------+ + + + + | 01/17/ | Orders Only | JENNIE SIDDIQUI | Joel Moise | | | 2010 | | [facility]ARDIOLOGY [facility] | MD Conchis [address] | | | | | [place] [address] | [address] | | | | | [facility] [address] [place] | [place] [address] | | | | | [address] | [phone] | | | | | [phone] | | | +--------+ + + + [...] SERVIN | | | | | | [address] | | | | | | | [...] | 4.1 | 3.5 - 5.0 | [facility] | | | | | mmol/L | | | + + + + + + | Cl | 108 | 98 - 109 mmol/L | [facility] | | + + + + + + | CO2 | 25 | 21 - 28 mmol/L | [facility] | | + + + + + + | Glucose | 85Comment: Cameroonian | 65 - 99 mg/dL | [facility] | | | | Diabetes Association | [...] | 7 - 23 mg/dL | [facility] | | + + + + + + | Creatinine | 0.93Comment: IDMS | 0.50 - 1.30 | [facility] | | | | traceable creatinine | [...] + + | JENNIE IGLESIAS | [address] | [place] [address] | | | [facility] | | | | | LABORATORY | [...] | 4.1 | 3.5 - 5.0 | [facility] | | | | | mmol/L | | | + + + + + + | Cl | 108 | 98 - 109 mmol/L | [facility] | | + + + + + + | CO2 | 25 | 21 - 28 mmol/L | [facility] | | + + + + + + | Glucose | 85Comment: Cameroonian | 65 - 99 mg/dL | [facility] | | | | Diabetes Association | [...] | 7 - 23 mg/dL | [facility] | | + + + + + + | Creatinine | 0.93Comment: IDMS | 0.50 - 1.30 | [facility] | | | | traceable creatinine | [...] >60Comment: GFR <60: | >60 | [facility] | | | GFR | Chronic kidney [...] + + | JENNIE IGLESIAS | [address] | [place] [address] | | | [facility] | | | | | LABORATORY | | | | + + + + + | [facility] | | | | + + + + + documented in this encounter Visit Diagnoses Not on filedocumented in this encounter"
--- OUTSIDE RECORDS SUMMARY | ~2019-10-21 | XMS | Encounter Summary ---
Demographics + + + | Address | [address] | | | [place] [address] | + + + | Home Phone | | + + + | Preferred Language | Unknown | + + + | Marital Status | | + + + | Confucianism Affiliation | 1009 | + + + | Race | Unknown | + + + | Ethnic Group | Unknown | + + + Author + + + | Author | [facility] | | | and Jose Enriqueana | + + + | Organization | [facility] | [...] | | | [address] | | [place], [place] | | | | | [address] | | + + + + + | Rickey Bui | ECON | [address] [place], [place] | | | | | [address] | | + + + + + Care Team Providers + +------+ + | Care Infantryman Name | Role | Phone | + [...] Refill | | 2016 | | CARDIOLOGY [facility] | MD Conchis [address] [place] [address] | | | | | [facility] [address] | [facility] [address] | | | | | [place] [address] [place] | [place] [address] | | | | | [address] | [phone] | | | | | [phone] | | | +--------+--------+ + + + [...] 2019 | Visit | | [address] | | | | | | [place] | | | | | | [address] | | | | | | | | +--------+---------+ + + + documented as of this encounter Visit Diagnoses + + | Diagnosis | + + | Essential hypertension, hypertension with unspecified goal - Primary | + + documented in this encounter"
--- OUTSIDE RECORDS SUMMARY | ~2019-10-21 | XMS | Encounter Summary ---
Demographics + + + | Address | [address] | | | [place] [address] | + + + | Home Phone [...] | Author | [facility] | | | and Jose Enriqueana | + + + | Organization | [facility] | [...] [address] | | | [place] | | [place], [place] | | | | | [address] | | + + + + + | Rickey Bui | ECON | [address] [place], [place] | | | | | [address] | | + + + + + Care Team Providers + +------+ + | Care Child Care Attendant School Name | Role | Phone | + +------+ + | Tayo Robles DO | PCP | | + +------+ + Reason for Visit + + + | Reason | Comments | + + + | Appointment | doing well... Cx - 04/10/13 OV | + + + Encounter Details +--------+ + + + + | Date | Type | Department | Care Team | Description | +--------+ + + + + | 04/03/ | Telephone | JENNIE SIDDIQUI | Joel Moise | Appointment (doing | | 2012 | | CARDIOLOGY [facility] | MD [address] | well... Cx - | | | | [facility] [address] | [address] | 04/10/13 OV) | | | | [place] [address] [place] | [place] [address] | | | | | [address] | [phone] | | | | | [phone] | | | +--------+ + + + [...] SERVIN | | | | | | [id number] | | | | | | | | +--------+---------+ + + + documented as of this encounter Visit Diagnoses Not on filedocumented in this encounter"
--- OUTSIDE RECORDS SUMMARY | ~2019-10-21 | XMS | Encounter Summary ---
Demographics + + + | Address | [address] | | | [place] [address] | + + + | Home Phone [...] Author | [facility] | | | and Jose Enriqueana | + + + | Organization | [facility] | | | and Jose Enriqueana | + + + | Address | Unknown | + + + | Phone | Unavailable | + + + Support + + + + + | Name | Relationship | Address | Phone | + + + + + | Sharlene Lagunas | ECON | [address] | | | [place] | | [place], [place] | | | | | [address] | | + + + + + | Rickey Bui | ECON | [address] [place], [place] | | | | | [address] | | + + + + + Care Team Providers + +------+ + | Care Rolled Materials Worker Name | Role | Phone | [...] Medication Refill | | 2017 | | [facility] | MD [address]chis [address] | (toprol) | | | | [facility] [address] | [address]VE [facility] [address] | | | | | [address] | [place] [address] | | | | | [address] | [phone] | | | | | [phone] | | | +--------+--------+ + + + [...] SERVIN | | | | | | [address] | | | | | | | | +--------+---------+ + + + documented as of this encounter Visit Diagnoses + + | Diagnosis | + + | Atrial fibrillation, unspecified type (HCC) | + + documented in this encounter"
--- OUTSIDE RECORDS SUMMARY | ~2019-10-21 | XMS | Encounter Summary ---
Demographics + + + | Address | [address] | | | [place] [address] | + + + | Home Phone [...] Author | [facility] | | | and Jose Enriqueana | + + + | Organization | [facility] | | | and Jose Enriqueana | + + + | Address | Unknown | + + + | Phone | Unavailable | + + + Support + + + + + | Name | Relationship | Address | Phone | + + + + + | Sharlene Lagunas | ECON | [address] | | | [place] | | [place], [place] | | | | | [address] | | + + + + + | Rickey Bui | ECON | [address] [place], [place] | | | | | [address] | | + + + + + Care Team Providers + +------+ + | Care Coil Tester Name | Role | Phone | [...] | | 2017 | Monitor | CARDIOLOGY [place] | Communications Editor | dysfunction (HCC) | | | | [address] | | (Primary Dx); | | | | [address] [address] | | Cardiac pacemaker in | | | | [place] | | situ | | | | [address] | | | | | | [phone] | | | +--------+ + + + [...] SERVIN | | | | | | [address] | | | | | | | [...] | 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 DRAW HAND 45.0%. | | | Patient is on [...] | | | | |Presenting rhythm is DRAW HAND/VS a.flutter ~ . DRAW HAND 45.0%. Patient is | | |on anticoagulant. [...]
--- OUTSIDE RECORDS SUMMARY | ~2019-10-21 | XMS | Encounter Summary ---
Demographics + + + | Address | [address] | | | [place] [address] | + + + | Home Phone [...] + | Author | [facility] | | | and Jose Enriqueana | + + + | Organization | [facility] | | [...] [address] | | | [place] | | [place], [place] | | | | | [address] | | + + + + + | Rickey Bui | ECON | [address] [place], [place] | | | | | [address] | | + + + + + Care Team Providers + +------+ + | Care Senior Corporate Accountant Name | Role | Phone | + [...] (doing | | 2012 | | CARDIOLOGY [facility] | MD [address] | well... Cx - | | | | [facility] [address] | [address] | 04/10/13 OV) | | | | [place] [address] [place] [address] | [place] [address] | | | | | [address] | [phone] | | | | | [phone] | | | +--------+ + + + [...] SERVIN | | | | | | [address] | | | | | | | | +--------+---------+ + + + documented as of this encounter Visit Diagnoses Not on filedocumented in this encounter"
--- OUTSIDE RECORDS SUMMARY | ~2019-10-21 | XMS | Encounter Summary ---
Demographics + + + | Address | [address] | | | [place] [address] | + + + | Home Phone [...] | Author | [facility] | | | and Jose Enriqueana | + + + | Organization | [facility] | | [...] [address] | | | [place] | | [place], [place] | | | | | [address] | | + + + + + | Rickey Bui | ECON | [address] [place], [place] | | | | | [address] | | + + + + + Care Team Providers + +------+ + | Care Rn Imaging Name | Role | Phone | + [...] | | 2017 | | [facility]ARD[facility]Y [facility] | MD [address] | ([facility]) | | | | [facility] [address] | [place] [address] | | | | | [address] | [place] [address] | | | | | [address] | [phone] | | | | | [phone] | | | +--------+--------+ + + + [...] SERVIN | | | | | | [address] | | | | | | | | +--------+---------+ + + + documented as of this encounter Visit Diagnoses Not on filedocumented in this encounter"
[~2019-10-21 13:52] MED LIST: ARMOUR THYROID60 MG PO; CLONIDINE HCL0.2 MG PO; COUMADIN5 MG; DIGOXIN125 MCG PO; FLOMAX0.4 MG PO; MAGNESIUM CITR296 ML PO; METOPROLOL SUCC25 MG PO
[2019-10-21] MEDS ORDERED: MEGA TAURINE1000 MG PO (14:18)
[2019-10-21] MEDS ORDERED: ESTRACE1 MG PO (14:19)
[2019-10-21] MEDS ORDERED: FOLIC ACID20 MG PO (14:20)
== END 2019-10-21 18:06 | disposition home or self-care (01) ==
LOC: ED 13:52
DX: B34.9 Viral infection, unspecified (principal); R17 Unspecified jaundice; I10 Essential (primary) hypertension; I48.91 Unspecified atrial fibrillation; Z88.1 Allergy status to other antibiotic agents; Z79.899 Other long term (current) drug therapy
CPT/HCPCS: 71045; 74177; 80053; 81001; 83605; 83690; 85025; 85610; 96361; 99284-25; J7030; Q9967

== ENCOUNTER 2025-02-10 02:57 | Emergency (ER) | payer MEDICARE, OTHER ==
[~2025-02-10] VITALS: Ht 193 cm; Wt 106.0 kg
[~2025-02-10 02:57] MED LIST changes: +ANASTROZOLE1 MG PO; +CO Q-10100 MG PO; +DHEA25 MG PO; +ESTRACE1 MG PO; +FISH OIL 1,001000 MG PO; +FOLIC ACID20 MG PO; +GARLIC100 MG PO; +MEGA TAURINE1000 MG PO; +POTASSIUM99 M3 PO; +SYNTHROID25 MCG PO
[2025-02-10] MEDS ORDERED: MORPHINE SULFATE 4 MG/ML VIAL IV ONE (03:30)
[2025-02-10 03:58] LABS: BASOPHILS 0.9 % (0.2-1.2); EOSINOPHILS 3.1 % (0.8-7.0); LYMPHOCYTES 18.6 % (21.8-53.1); MCH 32.4 PG (25.7-32.2); MCHC 33.5 g/dL (32.3-36.5); MCV 96.8 fL (79.0-92.2); MONOCYTES 11.6 % (5.3-12.2); NEUTROPHILS 65.5 % (34.0-67.9); RBC 4.01 M/uL (4.63-6.08)
[2025-02-10 04:08] LABS: INR 2.28 (0.80-1.30); PROTIME 23.8 Sec (11.2-14.2)
[2025-02-10 04:13] LABS: ALT (SGPT) 13.0 U/L (14-59); AST (SGOT) 24.0 U/L (15-37); GLOMERULAR FILTRATION RATE,EST 90.0 mL/min (>60); PROTEIN, TOTAL 6.6 g/dL (6.4-8.2); UREA NITROGEN 19.0 mg/dL (7-18)
[2025-02-10 05:03] LABS: ERYTHROCYTE SEDIMENTATION RATE 4
[2025-02-10 05:50] LABS: BLOOD/HGB, URINE NEGATIVE (Negative); KETONE, URINE TRACE (Negative); LEUK ESTERASE, URINE NEGATIVE (negative); NITRITE, URINE NEGATIVE (negative)
[2025-02-10] MEDS ORDERED: PHYTONADIONE 10 MG in DEXTROSE 5% 50 ML IV ONE (06:00)
[2025-02-10] MEDS ORDERED: PHYTONADIONE 10 MG/ML AMP ONE (06:05)
[2025-02-10 07:13] LABS: ABO A; ANTIBODY SCREEN NEGATIVE; RH POSITIVE
[2025-02-10 07:14] LABS: ABO A; RH POSITIVE
[2025-02-10 07:31] VITALS: BP 152/71
== END 2025-02-10 07:34 | disposition short-term general hospital (02) ==
LOC: ED 02:57
PROVIDERS: Internal Medicine
DX: K68.3 Retroperitoneal hematoma (principal); M79.81 Nontraumatic hematoma of soft tissue; I48.91 Unspecified atrial fibrillation; I10 Essential (primary) hypertension; Z95.2 Presence of prosthetic heart valve; Z96.642 Presence of left artificial hip joint; Z95.0 Presence of cardiac pacemaker; Z79.01 Long term (current) use of anticoagulants; Z79.890 Hormone replacement therapy; Z79.899 Other long term (current) drug therapy
CPT/HCPCS: 36415; 73502; 74177; 80053; 81003; 82550; 84550; 85014; 85018; 85025; 85610; 85651; 86140; 86850; 86900; 86901; 96374; 96375; 99285-25; J2270; J3430; P9059